=== PATIENT | male | born 1975 | race African-American/Black ===

== ENCOUNTER 2017-10-18 22:40 | Inpatient (IN) | payer OTHER ==
[~2017-10-18] VITALS: Ht 170.2 cm; Wt 94.5 kg
[~2017-10-18 22:40] MED LIST: BUSP30TA PO; CEPH500C3 PO; DEPA250T2 PO; INDO50 PO; LISI-363 PO; LORTA5 PO; SERO200T PO
[2017-10-18 22:42] VITALS: BP 143/66; PULSE 150; RESP 40; TEMP 105.1; O2SAT 99
[2017-10-18] MEDS ORDERED: CYPROHEPTADINE HCL SYRUP 2 MG/5 ML PO ONE (23:00)
[2017-10-18] MEDS ORDERED: ACETAMINOPHEN 650 MG SUPP RECTAL ONE (23:00)
[2017-10-18] MEDS ORDERED: KETOROLAC TROMETHAMINE 30 MG/ML (IVP) VIAL IV PUSH ONE (23:00)
[2017-10-18] MEDS ORDERED: INSULIN HUMAN REGULAR 1,000 UNITS/10 ML VIAL IV PUSH ONE ×2 (23:00→23:30)
[2017-10-18 23:02] VITALS: BP 143/66; PULSE 145; RESP 36; TEMP 104.9; O2SAT 100
[2017-10-18 23:16] LABS: AUTOMATED NEUTROPHIL # 12.7 TH/MM3 (1.8-7.7); BASOPHIL # 0.1 TH/MM3 (0-0.2); BASOPHIL % 0.7 % (0.0-2.0); EOSINOPHIL % 0.1 % (0.0-4.0); HEMATOCRIT 36.1 % (39.0-51.0); HEMOGLOBIN 10.5 GM/DL (13.0-17.0); LYMPH % 1.3 % (9.0-44.0); LYMPHOCYTE # 0.2 TH/MM3 (1.0-4.8); MEAN CORPUSCULAR HEMOGLOBIN 26.9 PG (27.0-34.0); MEAN PLATELET VOLUME 11.3 FL (7.0-11.0); MONO % 12.1 % (0.0-8.0); MONOCYTE # 1.8 TH/MM3 (0-0.9); NEUT % 85.8 % (16.0-70.0); PLATELET COUNT 170 TH/MM3 (150-450); RED BLOOD COUNT 3.92 MIL/MM3 (4.50-5.90); RED CELL DISTRIBUTION WIDTH 16.7 % (11.6-17.2); WHITE BLOOD COUNT 14.8 TH/MM3 (4.0-11.0)
[2017-10-18 23:19] LABS: MEAN CORPUSCULAR HGB CONC 29.2 % (32.0-36.0)
[2017-10-18 23:30] VITALS: PULSE 136; RESP 36; TEMP 104.7; O2SAT 100
[2017-10-18] MEDS ORDERED: [UNRECOGNIZED DRUG - OTHER] IV ONE (23:30)
[2017-10-18] MEDS ORDERED: cefTRIAXone INJ 1,000 MG in SODIUM CHLORIDE 0.9% INJ 100 ML IV ONE (23:30)
[2017-10-18 23:45] LABS: ACETAMINOPHEN LESS THAN 2.0 MCG/ML (10.0-30.0); ALBUMIN 3.1 GM/DL (3.4-5.0); ALKALINE PHOSPHATASE 95 U/L (45-117); ALT (GPT) 15 U/L (12-78); AST (GOT) 5 U/L (15-37); BICARBONATE 11.5 MEQ/L (21.0-32.0); BLOOD UREA NITROGEN 37 MG/DL (7-18); CALCIUM 7.1 MG/DL (8.5-10.1); CALCIUM-PROTEIN CORRECTED 7.7 MG/DL (8.5-10.1); CHLORIDE 86 MEQ/L (98-107); CREATININE 3.07 MG/DL (0.60-1.30); GLOMERULAR FILTRATION RATE 27 ML/MIN (>89); TOTAL BILIRUBIN ADULT 0.8 MG/DL (0.2-1.0); TOTAL PROTEIN 5.9 GM/DL (6.4-8.2)
[2017-10-18 23:46] LABS: BILIRUBIN, URINE NEG (NEG); BLOOD, URINE TRACE (NEG); GLUCOSE,RANDOM 1872 MG/DL (74-106); GLUCOSE,URINE 1000 mg/dL (NEG); KETONE, URINE 40 mg/dL (NEG); MUCUS URINE FEW /lpf (OCC); NITRITE,URINE NEG (NEG); PH, URINE 5.5 (5.0-8.5); SODIUM (NA) 121 MEQ/L (136-145); TRANSITIONAL EPI CELLS, URINE <1 /hpf; URINE COLOR COLORLESS (YELLW/STRAW); URINE LEUKOCYTE ESTERASE NEG (NEG)
[2017-10-18] MEDS ORDERED: DIVA250T3 PO (23:47)
[2017-10-18] MEDS ORDERED: NAPR500T2 PO (23:47)
[2017-10-18] MEDS ORDERED: AMLO10CA (23:47)
[2017-10-18] MEDS ORDERED: HYDR-755 PO (23:47)
[2017-10-18] MEDS ORDERED: BUSP10TA PO (23:47)
[2017-10-18] MEDS ORDERED: QUET1TAB8 PO (23:47)
[2017-10-18] MEDS ORDERED: [UNRECOGNIZED DRUG - CODE] BUCCAL (23:47)
[2017-10-19] VITALS (18 sets, daily range): BP systolic 83–137; BP diastolic 41–87; PULSE 81–130; RESP 18–29; TEMP 96.9–101.1; O2SAT 95–100
[2017-10-19] MEDS ORDERED: NS + KCL 40 MEQ INJ 1,000 ML IV SCH (00:15)
[2017-10-19] MEDS ORDERED: LORazepam 2 MG/ML VIAL IV PUSH ONE (00:15)
--- NOTE | 2017-10-19 00:16 | RADRPT ---
EXAM DATE/TIME: 10/18/2017 23:28 [place] COMPARISON: No previous studies available for comparison. INDICATIONS : Shortness of breath. MEDICAL HISTORY : Hypertension. Coronary artery disease. SURGICAL HISTORY : None. ENCOUNTER: Initial ACUITY: 1 day PAIN SCORE: 10/10 LOCATION: Bilateral chest FINDINGS: A single portable frontal view of the chest is blurred by breathing motion artifact. Multiple tiny pu nctate metallic foreign bodies overlie the right chest. The lungs are grossly clear. Heart is normal in size. Visualized bony structures are unremarkable. CONCLUSION: 1. Limited study. 2. Metallic foreign bodies overlying the right chest. Dennis Claire Jr., MD on October 19, 2017 at 0:11 Board Certified Radiologist. This report was verified electronically.
--- NOTE | 2017-10-19 00:19 | PD ---
HPI Chief Complaint: Altered Mental Status Time Seen by Provider: 22:45 Travel History International Travel<30 days: No Contact w/Intl Traveler<30days: No Traveled to known affect area: No History of Present Illness HPI Patient is a 42-year-old male who is febrile tonight altered mentally ..paramedics were called by the girlfriend to the house patient is minimally responsive vitals are within normal limits however patient's temp by the paramedics was 101.7 oral patient arrives he is diaphoretic. he is tactilely very hot -->rectal temp is done it is 105.7 he is awake but he is not answering questions he is staring he has vitals in the ER mildly tachycardic to 120 His blood pressure is 150/70 and again he is very febrile rectal Tylenol 650 is given Toradol 30 is given and 2 L of fluid are added to the 3 L of fluid he already had in EMS . 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 he also takes BuSpar and possibly has a history of cocaine abuse -->he could have a serotonin syndrome fever.. he is a poor historian at this time due to his mental status from the high fever ...ROS and HPI are limited. Cool is started immediately and his glucose returns 1800s, he is in DKA new onset diabetes is working diagnosis. Due to creatinine elevation and severe hyperglycemia pt needs 4-5 liters NS at least before I can correct electrolytes K and Ca PFSH Past Medical History Bipolar Disorder: Yes Depression: Yes Coronary Artery Disease: Yes Diminished Hearing: No Hypertension: Yes Social History Alcohol Use: Yes (3X WK 48OZ BEER) Tobacco Use: Yes (1/2 PPD) Substance Use: Yes (MJ,COCAINE EVERY 2 DAYS) Allergies-Medications (Allergen,Severity, Reaction): Coded Allergies: No Known Allergies (Unverified Allergy, Unknown, 10/18/17) Reported Meds & Prescriptions Reported Meds & Active Scripts Active Reported Oravig (Miconazole) 50 Mg Nitza 50 Mg BUCCAL DAILY Hydroxyzine HCl 10 Mg Tab 10 Mg PO TID PRN Naproxen 500 Mg Tab 500 Mg PO BID Buspirone (Buspirone HCl) 10 Mg Tab 10 Mg PO DAILY Amlodipine-Benazepril 10-20 Mg Cap 1 Cap DAILY Divalproex ER (Divalproex Sodium) 250 Mg [place] 250 Mg PO DAILY Quetiapine (Quetiapine Fumarate) 100 Mg Tab 100 Mg PO DAILY Lisinopril 20 mg (Lisinopril) 20 Mg Tab 20 Mg PO BID Review of Systems ROS Limitations: Clinical Condition, Altered Mental Status Physical Exam Narrative GENERAL: Patient is awake somnolent-- staring eyes open but minimally responsive-- at initial eval airway is protected he is not obtunded he is just not speaking SKIN: dry. Hot dry skin HEAD: Atraumatic. Normocephalic. EYES: Pupils equal and round. No scleral icterus. No injection or drainage. ENT: No nasal bleeding or discharge. Mucous membranes pink and moist. NECK: Trachea midline. No JVD. CARDIOVASCULAR: sinus tachycardia rate 130 . RESPIRATORY: No accessory muscle use. Slightly increased respiratory rate --> possibly blowing off acid from DKA GASTROINTESTINAL: Abdomen soft, non-tender, nondistended. Hepatic and splenic margins not palpable. MUSCULOSKELETAL: Extremities without clubbing, cyanosis, or edema. No obvious deformities. NEUROLOGICAL: Awake somnolent . No obvious cranial nerve deficits. Motor grossly within normal limits. PSYCHIATRIC: somnolent AMS from DKA and High fever Data Data Last Documented VS Vital Signs Date Time Temp Pulse Resp B/P (MAP) Pulse Ox O2 Delivery O2 Flow Rate FiO2 10/18/17 23:30 104.7 136 36 100 Non-Rebreather 10/18/17 23:02 15.00 Orders Orders Complete Blood Count With Diff (10/18/17 22:45) Comprehensive Metabolic Panel (10/18/17 22:45) Creatine Kinase (Cpk) (10/18/17 22:45) C-Reactive Protein (Crp) (10/18/17 22:45) Urinalysis - C+S If Indicated (10/18/17 22:45) Chest, Single Ap (10/18/17 22:45) Drug Screen, Random Urine (10/18/17 22:45) Alcohol (Ethanol) (10/18/17 22:45) Salicylates (Aspirin) (10/18/17 22:45) Tylenol (Acetaminophen) (10/18/17 22:45) Blood Culture (10/18/17 22:45) Lactic Acid (10/18/17 22:45) Acetaminophen Supp (Tylenol Supp) (10/18/17 23:00) Ketorolac Inj (Toradol Inj) (10/18/17 23:00) Insulin Human Regular Inj (Novolin R Inj (10/18/17 23:00) Cyproheptadine Liq (Periactin Liq) (10/18/17 23:00) Insert Temp Sensing Chiang Cath (10/18/17 22:52) Blood Gas Venous Ph (10/18/17 23:05) Beta Hydroxybutyrate (Acetone) (10/18/17 22:56) Ceftriaxone Inj (Rocephin Inj) (10/18/17 23:30) Insulin Human Regular Inj (Novolin R Inj (10/18/17 23:30) Insulin Human R Drip (For Ed) (Novolin-R (10/18/17 23:30) Sodium Chlor 0.9% 1000 Ml Inj (Ns 1000 M (10/19/17 00:00) Sodium Chlor 0.9% 1000 Ml Inj (Ns 1000 M (10/19/17 00:00) Sodium Chlor 0.9% 1000 Ml Inj (Ns 1000 M (10/19/17 00:00) Ns + Kcl 40 Meq Inj (Ns + Kcl 40 Meq Inj (10/19/17 00:15) Lorazepam Inj (Ativan Inj) (10/19/17 00:15) Sodium Chlor 0.9% 1000 Ml Inj (Ns 1000 M (10/19/17 00:30) Sodium Chlor 0.9% 1000 Ml Inj (Ns 1000 M (10/19/17 00:30) Admit Order (Ed Use Only) (10/19/17 00:38) Labs Laboratory Tests Test 10/18/17 00:00 10/18/17 22:56 10/18/17 23:05 Urine Random Creatinine LESS THAN 13.0 MG/DL Urine Random Sodium 11 MEQ/L White Blood Count 14.8 TH/MM3 Red Blood Count 3.92 MIL/MM3 Hemoglobin 10.5 GM/DL Hematocrit 36.1 % Mean Corpuscular Volume 92.0 FL Mean Corpuscular Hemoglobin 26.9 PG Mean Corpuscular Hemoglobin Concent 29.2 % Red Cell Distribution Width 16.7 % Platelet Count 170 TH/MM3 Mean Platelet Volume 11.3 FL Neutrophils (%) (Auto) 85.8 % Lymphocytes (%) (Auto) 1.3 % Monocytes (%) (Auto) 12.1 % Eosinophils (%) (Auto) 0.1 % Basophils (%) (Auto) 0.7 % Neutrophils # (Auto) 12.7 TH/MM3 Lymphocytes # (Auto) 0.2 TH/MM3 Monocytes # (Auto) 1.8 TH/MM3 Eosinophils # (Auto) 0.0 TH/MM3 Basophils # (Auto) 0.1 TH/MM3 CBC Comment DIFF FINAL Differential Comment Urine Color COLORLESS Urine Turbidity CLEAR Urine pH 5.5 Urine Specific [place] 1.024 Urine Protein NEG mg/dL Urine Glucose (UA) 1000 mg/dL Urine Ketones 40 mg/dL Urine Occult Blood TRACE Urine Nitrite NEG Urine Bilirubin NEG Urine Urobilinogen LESS THAN 2.0 MG/DL Urine Leukocyte Esterase NEG Urine WBC 2 /hpf Urine Transitional Epithelial Cells <1 /hpf Urine Mucus FEW /lpf Microscopic Urinalysis Comment CULT NOT INDICATED Blood Urea Nitrogen 37 MG/DL Creatinine 3.07 MG/DL Random Glucose 1872 MG/DL Total Protein 5.9 GM/DL Albumin 3.1 GM/DL Calcium Level 7.1 MG/DL Alkaline Phosphatase 95 U/L Aspartate Amino Transf (AST/SGOT) 5 U/L Alanine Aminotransferase (ALT/SGPT) 15 U/L Total Bilirubin 0.8 MG/DL Sodium Level 121 MEQ/L Potassium Level 2.7 MEQ/L Chloride Level 86 MEQ/L Carbon Dioxide Level 11.5 MEQ/L Anion Gap 24 MEQ/L Estimat Glomerular Filtration Rate 27 ML/MIN Lactic Acid Level 2.5 mmol/L Protein Corrected Calcium 7.7 MG/DL Total Creatine Kinase 84 U/L C-Reactive Protein 1.60 MG/DL Salicylates Level 5.0 MG/DL Urine Opiates Screen NEG Acetaminophen Level LESS THAN 2.0 MCG/ML Urine Barbiturates Screen NEG Urine Amphetamines Screen NEG Urine Benzodiazepines Screen NEG Urine Cocaine Screen NEG Urine Cannabinoids Screen NEG Ethyl Alcohol Level LESS THAN 3 MG/DL B-Hydroxybutyrate 5.68 MMOL/L Venous Blood pH 7.12 MDM Medical Decision Making Medical Screen Exam Complete: Yes Emergency Medical Condition: Yes Differential Diagnosis pt is hyperthermic from sepsis vs malignant hyperthermia , vs serotonin syndrome .. pt possible Non ketotic hyperosmolar dehydration vs DKA with and severe acidosis and infectious source vs other Narrative Course I immediately start to cool pt as his temperature is 105.7 .. I emprically give vanco and zosyn to cover infectious source for fever and then start to resusitate with fluid boluses --> 6 liters total and then I start Insulin to correct his severe hyperglycemia and dehydration and and renal failure, I wait to given calcium and K due to his renal failure and calcium would injury kidneys and K would cause rapid hyperkalemia and potential cardiac arrhythmia , after 6 liters I give 20 mEq of KCL and 1 gram of Calcium gluconate pt is very acidotic and HCO3 amp given and he becomes unresponsive his equipment monitor phototypesetting showing ectopy and change in cardiac minitor tracing . HCO3 given and his monitor returns to NSR tachycardia .Pt is intubated by this MD and then central line is placed by this MD and I admit to ICU , 70 minutes of critical care time Critical Care Narrative 70 minutes of critical care time --> cooling iv antibioitc electrolyte correction insulin admistration ,, IV fluid resusitation for severe dehydration to renal failure to cardiac arrhythmia due to k dropping and renal failure and hypocalcemia, Intubation and central line placement in ER by this MD .. Procedures Procedure Narrative EMERGENCY LIFE SAVING NEED CENTRAL VENOUS LINE: The site was prepped with Betadine and sterilely draped. It was infiltrated with 1% lidocaine plain. The deep vein was cannulated using normal Seldinger technique. A central line was placed in the [R femoral ] site and secured adhesive snap stabilizer apparatus . The site was sterilely dressed. The patient tolerated the procedure well. INTUBATION: The patient was put in optimal position for the procedure. Rapid sequence intubation was initiated by me using [20] milligrams of etomidate IV and [-100] milligrams of [-succinylcholine ] IV. C- MAC used to visualize cords which were very anterior and narrow airway opening,, The patient was intubated with a [-8.0] cuffed endotracheal tube. Tube placement was confirmed by visualization of the tube and balloon passing through the cords, capnometry and subsequent chest x-ray. Breath sounds were equal and well aerated bilaterally postintubation. No breath sounds over stomach. Patient tolerated procedure well. Diagnosis Primary Impression: DKA (diabetic ketoacidoses) Qualified Codes: E10.11 - Type 1 diabetes mellitus with ketoacidosis with coma Additional Impressions: Hyperthermia Electrolyte abnormality Electrolyte and fluid disorder Admitting Information Admitting Physician Requests: Admit Sid Miller MD October 19, 2017 00:19
[2017-10-19] MEDS ORDERED: SODIUM CHLOR 0.9% 1000 ML INJ 1,000 ML IV ONE ×6 (00:30→03:00)
[2017-10-19] MEDS ORDERED: POTASSIUM CHLOR 20 MEQ PREMIX 100 ML IV ONE (01:15)
[2017-10-19] MEDS ORDERED: SODIUM BICARBONATE 8.4% INJ 50 MEQ/50 ML SYR ONE (01:19)
[2017-10-19 01:25] LABS: ALBUMIN 3.1 GM/DL (3.4-5.0); AST (GOT) 6 U/L (15-37); BICARBONATE 13.2 MEQ/L (21.0-32.0); BLOOD UREA NITROGEN 35 MG/DL (7-18); CALCIUM 7.7 MG/DL (8.5-10.1); CHLORIDE 108 MEQ/L (98-107); CREATININE 2.77 MG/DL (0.60-1.30); GLOMERULAR FILTRATION RATE 31 ML/MIN (>89); SODIUM (NA) 139 MEQ/L (136-145)
[2017-10-19] MEDS ORDERED: ETOMIDATE 40 MG/20 ML VIAL ONE (01:34)
[2017-10-19] MEDS ORDERED: CALCIUM GLUCONATE 10% 1 GM/10 ML VIAL ONE (01:36)
[2017-10-19] MEDS ORDERED: CALCIUM GLUCONATE 10% 1 GM/10 ML VIAL IV PUSH ONE (01:45)
[2017-10-19 01:51] LABS: ALKALINE PHOSPHATASE 104 U/L (45-117); ALT (GPT) 13 U/L (12-78); TOTAL BILIRUBIN ADULT 0.5 MG/DL (0.2-1.0); TOTAL PROTEIN 6.1 GM/DL (6.4-8.2)
[2017-10-19 01:52] LABS: GLUCOSE,RANDOM 1247 MG/DL (74-106)
[2017-10-19 01:53] LABS: PHOSPHORUS 0.7 MG/DL (2.5-4.9)
[2017-10-19] MEDS ORDERED: SODIUM CHLORIDE 0.9% FLUSH 10 ML FLUSH IV FLUSH PRN (02:30)
[2017-10-19] MEDS ORDERED: LACTULOSE SYRUP 20 GM/30 ML CUP PO PRN (02:30)
[2017-10-19] MEDS ORDERED: POTASSIUM PHOSPHATE INJ 30 MMOL in SODIUM CHLOR 0.9% 250 ML INJ 250 ML IV ONE (02:30)
[2017-10-19] MEDS ORDERED: BISACODYL 10 MG SUPP RECTAL PRN (02:30)
[2017-10-19] MEDS ORDERED: MAGNESIUM HYDROXIDE SUSP 30 ML CUP PO PRN (02:30)
[2017-10-19] MEDS ORDERED: NURSING INFORMATION XX SCH (02:30)
[2017-10-19] MEDS ORDERED: CHLORHEXIDINE GLUCONATE 2 % 1 PACK (2 CLOTHS) TOP PRN (02:30)
[2017-10-19] MEDS ORDERED: ONDANSETRON HCL 4 MG/2 ML VIAL IV PUSH PRN (02:30)
[2017-10-19] MEDS ORDERED: SENNOSIDES 8.6 MG TAB PO PRN (02:30)
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
[2017-10-19] MEDS ORDERED: fentaNYL DRIP 250 ML IV PRN (03:00)
[2017-10-19] MEDS ORDERED: SUCCINYLCHOLINE CHLORIDE 100 MG/5 ML SYRINGE IV PUSH ONE (03:00)
[2017-10-19] MEDS ORDERED: ETOMIDATE 20 MG/10 ML VIAL IV PUSH ONE (03:00)
[2017-10-19] MEDS ORDERED: PROPOFOL 1000 MG/100 ML INJ 100 ML IV PRN (03:00)
[2017-10-19] MEDS ORDERED: SODIUM BICARBONATE 8.4% INJ 50 MEQ/50 ML SYR IV PUSH ONE ×4 (03:00→22:00)
[2017-10-19] MEDS ORDERED: PHENYLEPHRINE HCL 10 MG/ML VIAL ONE ×4 (03:29→07:39)
[2017-10-19] MEDS ORDERED: TERBUTALINE INJ 1 MG/ML AMP SQ PRN ×2 (03:30→07:45)
[2017-10-19] MEDS: POTASSIUM CHLORIDE INJ 40 MEQ, SODIUM CHLORIDE 23.4% INJ 38.5 MEQ in WATER STERILE FOR ... IV SCH ×2 (03:32→10:27)
[2017-10-19] MEDS: NOREPINEPHRINE INJ 4 MG in SODIUM CHLOR 0.9% 250 ML INJ 246 ML IV PRN ×2 (03:36→21:47)
--- NOTE | 2017-10-19 03:47 | RADRPT ---
EXAM DATE/TIME: 10/19/2017 02:56 [facility] COMPARISON: CHEST SINGLE AP, October 18, 2017, 23:28. INDICATIONS : Confirm central line placement. MEDICAL HISTORY : Hypertension. Coronary artery disease. SURGICAL HISTORY : None. ENCOUNTER: Initial ACUITY: 1 day PAIN SCORE: Non-responsive. LOCATION: Bilateral chest FINDINGS: Tip of an endotracheal tube is less than 1 cm from the jonathan. Nasogastric tube tip is in the region of the body of the stomach. Bilateral pulmonary infiltrates are noted. Heart normal size. No central line observed. No effusions. Metallic foreign bodies overlie the right chest. CONCLUSION: 1. Bilateral pulmonary infiltrates. Dennis Claire Jr., MD on October 19, 2017 at 3:44 Board Certified Radiologist. This report was verified electronically.
[2017-10-19] MEDS ORDERED: Vancomycin Consult Pharmacy 1 EA OTHER SCH (04:00)
[2017-10-19] MEDS: CHLORHEXIDINE GLUCONATE 2 % 1 PACK (2 CLOTHS) TOP SCH (04:00)
[2017-10-19] MEDS ORDERED: GLUCAGON 1 MG/ML VIAL OTHER PRN (04:15)
[2017-10-19] MEDS ORDERED: DEXTROSE 50% IN WATER 50 ML VIAL(D50) IV PUSH PRN ×2 (04:15→23:30)
[2017-10-19 04:25] LABS: INTERNATIONAL NORMALIZED RATIO 1.1 RATIO; PROTHROMBIN TIME - PATIENT 11.5 SEC (9.8-11.6)
[2017-10-19 04:34] LABS: BICARBONATE 20.8 MEQ/L (21.0-32.0); CALCIUM 7.6 MG/DL (8.5-10.1); CREATININE 2.99 MG/DL (0.60-1.30); MAGNESIUM 3.3 MG/DL (1.5-2.5); PHOSPHORUS 2.3 MG/DL (2.5-4.9)
[2017-10-19] MEDS: RESP: ALBUTEROL 2.5 MG/IPRATROPIUM 0.5 MG NEB (SCH) INH ×4 (04:51→20:15)
[2017-10-19] MEDS: POTASSIUM CHLOR 40 MEQ PREMIX 100 ML IV SCH ×2 (05:00→10:27)
[2017-10-19] MEDS ORDERED: VANCOMYCIN 1,500 MG/NS 500 ML IV ONE ×2 (05:00)
[2017-10-19] MEDS ORDERED: SODIUM BICARBONATE 8.4% INJ 50 MEQ/50 ML SYR IV ONE (05:00)
[2017-10-19] MEDS ORDERED: CALCIUM CHLORIDE 10% SOLN 1 GRAM/10 ML SYR IV ONE (05:00)
[2017-10-19] MEDS: CEFEPIME INJ 2,000 MG in SODIUM CHLORIDE 0.9% INJ 100 ML IV SCH ×2 (05:28→16:08)
[2017-10-19] MEDS: metroNIDAZOLE 500 MG INJ 100 ML IV SCH ×4 (05:29→23:23)
[2017-10-19] MEDS: ARTIFICIAL TEARS OPTH SOLN 15 ML BTL EACH EYE SCH ×3 (06:00→22:00)
[2017-10-19] MEDS ORDERED: POTASSIUM CHLORIDE 25 MEQ EFFERVESCENT TAB NG ONE (07:45)
[2017-10-19] MEDS: CHLORHEXIDINE 0.12% (ORAL KIT) 15 ML CUP MT SCH ×2 (08:00→20:00)
[2017-10-19] MEDS ORDERED: MIDAZOLAM 100 MG/100 ML INJ 100 ML IV PRN (08:15)
[2017-10-19] MEDS: fentaNYL DRIP 250 ML IV PRN (08:42)
[2017-10-19] MEDS: PHENYLEPHRINE 40 MG in D5W 500 ML IV PRN (08:43)
--- NOTE | 2017-10-19 08:48 | HHI.CCPN ---
Subjective Remarks/Hospital Course This is a 42-year-old AA male. Date of admission 10/19/2017. Past medical history includes depression, hypertension. Patient has no known history of diabetes mellitus but has multiple family members with this diagnosis. Over the past month, patient has been experiencing these sequelae of thirst, diminished appetite. Patient was in group home until recently and has not had his blood sugar checked according to his sister. He denies any sick contacts. Since being released from group home, patient has been relatively noncompliant with his home medications due to underlying nausea/vomiting and delirium. Patient was drinking copious amounts of fluids at home. Due to his underlying illness is's family convinced him to come to the hospital for further evaluation treatment today. Name Efraín, patient noted to have a blood sugar 1800. Acute kidney injury creatinine of around 3. Sodium 121. Multiple electrolyte and mellitus and elevated ammonia level. Patient originally presented with fever around 105 to his facility. Received 4 mg of cyproheptadine per ED physician first possible serotonin syndrome. He received ice to fluid/water and acetaminophen/NSAIDs and his blood sugars currently subsiding. Patient became more unresponsive in the ED intervention was intubated with central line placed by ED physician. 10/19:The patient went into V. tach at approximately 0720 am. ACLS protocol instituted. Insulin infusion discontinued. 12-lead EKG obtained, stat VBG obtained. 1 g calcium chloride given to stabilize membrane. The patient was defibrillated 1 prior to my arrival and the scene. The patient was given 50 mEq of potassium orally, as well as 20 meq.'s IV.ROSC returned at 0 750. Attempts made to contact family unsuccessful, palliative care consulted to define healthcare POA surrogacy. Repletion of electrolytes per ICU protocol , serial labs continues. Patient awakened post ROSC noted to have spontaneous eye opening movement of extremities 4 but not following commands. Arterial line placed, the patient continues on Levophed and phenylephrine infusion to maintain MAP. The patient was noted to have a significant respiratory acidosis , initial CO2 96, rate was increased at 6 AM subsequent CO2 67 with pH 6.97. Ventilatory rate increased, sodium bicarbonate 1 amp 4 bicarb level is 16.3 given. Objective Vital Signs Date Time Temp Pulse Resp B/P (MAP) Pulse Ox O2 Delivery O2 Flow Rate FiO2 10/19/17 05:30 60 10/19/17 04:40 97 10/19/17 03:36 95 86/36 10/19/17 03:15 Mechanical Ventilator 10/19/17 03:15 99.9 18 10/19/17 01:42 15.00 Intake and Output 10/19/17 10/19/17 10/20/17 08:00 16:00 00:00 Intake Total 1085 ml Output Total 5075 ml Balance -3990 ml Result Diagram: 10/18/17 2256 10/19/17 0520 Other Results Laboratory Tests Test 10/18/17 23:05 10/19/17 02:25 10/19/17 04:22 Venous Blood pH 7.12 (7.360-7.400) 6.87 (7.360-7.400) Blood Gas Puncture Site LINE RT RADIAL Blood Gas Patient Temperature 98.6 98.6 Venous Blood Partial Pressure CO2 105 mmHg (44-48) Venous Blood Partial Pressure O2 35 mmHg (35-40) Venous Blood HCO3 18 mmol/L (22-26) Venous Blood Oxygen Saturation 44 % (70-76) Venous Blood Oxygen Content 5.9 Vol % (9.0-17.0) Venous Blood Base Excess -13.7 mmol/L (-2-2) Oxygen Delivery Device VENTILATOR VENTILATOR Blood Gas Ventilator Setting COMMENT PRVC/AC Blood Gas Inspired Oxygen 100 % 100 % Blood Gas HCO3 19 mmol/L (22-26) Blood Gas Base Excess -11.8 mmol/L (-2-2) Blood Gas Oxygen Saturation 97 % (90-100) Arterial Blood pH 6.95 (7.380-7.420) Arterial Blood Partial Pressure CO2 91 mmHg (38-42) Arterial Blood Partial Pressure O2 246 mmHg (61-120) Arterial Blood Oxygen Content 13.8 Vol % (12.0-20.0) Arterial Blood Carboxyhemoglobin 0.2 % (0-4) Arterial Blood Methemoglobin 1.7 % (0-2) Blood Gas Hemoglobin 9.7 G/DL (12.0-16.0) Imaging Last Impressions Chest X-Ray 10/19/17 0253 Signed Impressions: Service Date/Time: Thursday, October 19, 2017 02:56 - CONCLUSION: 1. Bilateral pulmonary infiltrates. Dennis Claire Jr., MD Objective Remarks GENERAL: 42-year-old AA male currently resting in bed orotracheally intubated SKIN: Warm and dry. Multiple tattoos HEAD: Atraumatic. Normocephalic. EYES: Pupils equal and round about 2 mm bilaterally and reactive no scleral icterus. No injection or drainage. ENT: No nasal bleeding or discharge. Mucous membranes pink and moist. NECK: Trachea midline. No JVD. CARDIOVASCULAR: Tachycardic, RR. S1-S2 no S4. RESPIRATORY: Diminished breath sounds. Symmetrical excursion. No wheezing appreciated. GASTROINTESTINAL: Abdomen soft, non-tender, nondistended. Hypoactive bowel sounds were appreciated. MUSCULOSKELETAL: Extremities without significant pitting edema. No obvious deformities. NEUROLOGICAL: Currently seen post analgesia for intubation. Positive gag and corneal reflex. Withdraws to pain bilateral upper extremity's. Minimal bilateral lower extremities. Urinary Catheter: Yes Assessment to: Continue Date of Insertion: October 19, 2017 A/P Problem List: (1) Hypokalemia ICD Code: E87.6 - Hypokalemia Status: Acute (2) Acute respiratory failure ICD Code: J96.00 - Acute respiratory failure, unspecified whether with hypoxia or hypercapnia (3) Lactic acidosis ICD Code: E87.2 - Acidosis Status: Acute (4) Hypermagnesemia ICD Code: E83.41 - Hypermagnesemia (5) Pyrexia ICD Code: R50.9 - Fever, unspecified Status: Acute (6) Hyponatremia ICD Code: E87.1 - Hypo-osmolality and hyponatremia Status: Acute (7) Leukocytosis ICD Code: D72.829 - Elevated white blood cell count, unspecified Status: Acute (8) Hypophosphatemia ICD Code: E83.39 - Other disorders of phosphorus metabolism Status: Acute (9) Ketoacidosis due to secondary diabetes ICD Code: E13.10 - Other specified diabetes mellitus with ketoacidosis without coma Status: Acute (10) Acute kidney injury ICD Code: N17.9 - Acute kidney failure, unspecified Status: Acute (11) Acute encephalopathy ICD Code: G93.40 - Encephalopathy, unspecified Status: Acute (12) BMI 37.0-37.9, adult ICD Code: Z68.37 - Body mass index (BMI) 37.0-37.9, adult Status: Acute Assessment and Plan Neuro/Psych: Acute toxic metabolic encephalopathy Depression/anxiety Holding Quetiapine 100 mg daily, divalproex 250 mg daily and buspirone 10 mg p.o. 3 times daily/home medication along with hydroxyzine 10 mg p.o. 3 times daily Patient did received cyproheptadine 4 mg 1 for possible serotonin syndrome by ED physician Versed/fentanyl drips for sedation/analgesia while intubated Goal of RASS of -[address] brain ordered. Results pending along with EEG Holding buspirone 10 mg daily, divalproex 250 mg daily/check level and ketamine 100 mg p.o. daily. 10/19 S/P ROSC-noticed spontaneous eye opening, spontaneous movement of extremities 4, not following commands CV: Severe sepsis Lactic acidosis History of essential hypertension Currently on one quarter normal saline with 20 mEq of KCl at 150 cc an hour Received 10 L normal saline in ED Repeat lactate until cleared Follow-up EKG/troponin Holding home medication of amlodipine/benazepril 10/20 1 tablet daily and lisinopril 20 mg p.o. 2x daily in light of hypertension As needed norepinephrine and phenylephrine to maintain mean arterial pressure greater than equal to 65 Resp: Acute respiratory failure Mixed acidosis PRVC ventilation increased 24/550/0.9/5/50 Ventilator bundle Albuterol/ipratropium aerosols every 4 hours with albuterol aerosols every 2 hours as needed dyspnea Spontaneous breathing trials when clinically indicated ET tube retracted 1 cm. Repeat chest x-ray in a.m. Repeat ABG GI: Possible upper GI bleed. Hypoalbuminemia NGT to LIWS Maintain NPO status Pantoprazole for GI prophylaxis Docusate sodium/senna 1 tablet twice daily for bowel regimen Lactulose 30 cc twice daily. Follow-up ammonia level : Maintain Chiang catheter for accurate I's and O's Endo: Acute hyperglycemic state Ketoacidosis Currently on insulin drip currently at 2 units an hour with a goal to decrease blood sugar between 75 and 100 an hour Check hemoglobin A1c, lipid panel Beta hydroxybutyrate repeat pending. Renal: Acute kidney injury Check urine eosinophils and electrolytes and ultrasound Monitor urine output Accurate I's and O's Heme: Leukocytosis Normocytic anemia Monitor CBC daily. Follow trends Coags currently pending ID: Currently in vancomycin, cefepime and metronidazole day #1 Blood cultures 2, sputum, urine, influenza all ordered F/U results Consider lumbar puncture FEN: Hypokalemia Hypophosphatemia Hypermagnesia Replace electrolytes as clinically indicated. Currently on hypotonic saline to correct sodium Receiving IV phosphorus and potassium Monitor serial electrolyte levels MSK: Elevated BMI of 37 Weight loss encouraged PT evaluate and treat Access -Right femoral CVL day #1 placed in ED by ED physician Prophylaxis GI -pantoprazole -DVT -SCD/holding pharmacological prophylaxis with possible upper GI bleed Critical Care: my billing statement This patient remains critically ill with one or more organ systems which are or may become a threat to life. I have spent in excess of 50 minutes discontinuously in the care and management of this patient. This time is exclusive of procedures, and includes, but is not limited to, evaluation of the patient, review of the medical record, discussions with family, consultants, nursing staff, or respiratory therapy, and documentation in the medical record. Physician Maria Esther Giles Problem Qualifiers (1) Acute respiratory failure: Qualified Codes: J96.01 - Acute respiratory failure with hypoxia; J96.02 - Acute respiratory failure with hypercapnia (2) Pyrexia: Qualified Codes: R50.9 - Fever, unspecified Maria Esther Giles MD October 19, 2017 08:48
--- NOTE | 2017-10-19 08:53 | PD.PROCEDR ---
Procedure Note Procedure Date:10/19/2017 Procedure: Cardiopulmonary resuscitation Indication: Cardiac arrest / Ventricular Tachycardia Details of procedure: Patient developed ventricular tachycardia cardiac arrest, no pulse. Per ACLS protocol, patient received defibrillation x1 , 100% ventilation via ETT, calcium chloride, and normal saline 1 L IV. Continued aggressive repletion of potassium. Norepinephrine infusion continued, phenylephrine infusion added, after 30 minutes resuscitation we were able to restore spontaneous circulation. Attempted notification of the family was notified by myself, unsuccessful to locate significant other, Denise. Maria Esther Giles MD October 19, 2017 08:53
[2017-10-19] MEDS ORDERED: ARTIFICIAL TEARS OPTH SOLN 15 ML BTL EACH EYE SCH (09:00)
[2017-10-19] MEDS ORDERED: PANTOPRAZOLE SODIUM 40 MG VIAL IV PUSH SCH (09:00)
[2017-10-19] MEDS: PANTOPRAZOLE SODIUM 40 MG VIAL IV PUSH SCH ×2 (09:00→20:03)
[2017-10-19] MEDS: DOCUSATE SODIUM 50 MG/SENNA 8.6 MG TAB PO SCH ×2 (09:00→21:00)
[2017-10-19] MEDS: VASOPRESSIN 40 U/D5W 100 ML Titrate, Post Cardiac Surgery IV PRN ×4 (09:03→21:45)
[2017-10-19] MEDS ORDERED: CALCIUM CHLORIDE 10% SOLN 1 GRAM/10 ML SYR ONE (09:43)
[2017-10-19 09:53] LABS: ALBUMIN 2.6 GM/DL (3.4-5.0); ALKALINE PHOSPHATASE 98 U/L (45-117); ALT (GPT) 92 U/L (12-78); AST (GOT) 199 U/L (15-37); BICARBONATE 13.4 MEQ/L (21.0-32.0); BLOOD UREA NITROGEN 34 MG/DL (7-18); CALCIUM 8.1 MG/DL (8.5-10.1); CHLORIDE 124 MEQ/L (98-107); CREATININE 3.12 MG/DL (0.60-1.30); GLOMERULAR FILTRATION RATE 27 ML/MIN (>89); GLUCOSE,RANDOM 372 MG/DL (74-106); SODIUM (NA) 152 MEQ/L (136-145); TOTAL BILIRUBIN ADULT 0.6 MG/DL (0.2-1.0); TOTAL PROTEIN 5.1 GM/DL (6.4-8.2)
--- NOTE | 2017-10-19 09:53 | RADRPT ---
EXAM DATE/TIME: 10/19/2017 09:30 [facility] COMPARISON: CHEST SINGLE AP, October 19, 2017, 2:56. INDICATIONS : Respiratory failure. MEDICAL HISTORY : Hypertension. Coronary artery disease. SURGICAL HISTORY : None. ENCOUNTER: Subsequent ACUITY: 2 days PAIN SCORE: Non-responsive. LOCATION: Bilateral chest FINDINGS: Multiple metallic foreign bodies are again seen overlying the right hemithorax the endotracheal tube tip at the inferior margin of the clavicles. NG tube side-port at the upper stomach. There are bilate ral nodular opacities again seen. Osseous structures are intact. CONCLUSION: No significant change has occurred. Alexx Baig MD on October 19, 2017 at 9:50 Board Certified Radiologist. This report was verified electronically.
[2017-10-19] MEDS: LACTULOSE SYRUP 20 GM/30 ML CUP PO SCH ×2 (10:16→20:03)
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
[2017-10-19] MEDS: SODIUM CHLORIDE 0.9% FLUSH 10 ML FLUSH IV FLUSH SCH ×2 (10:27→20:03)
--- NOTE | 2017-10-19 10:35 | RADRPT ---
EXAM DATE/TIME: 10/19/2017 09:46 [place] COMPARISON: No previous studies available for comparison. INDICATIONS : Increased BUN/creatinine. MEDICAL HISTORY : Hypertension. Coronary artery disease. Bipolar disorder. Depression. Substance and tobacco use. SURGICAL HISTORY : Unable to obtain. ENCOUNTER: Initial ACUITY: 1 day PAIN SCORE: Nonresponsive. LOCATION: Bilateral flank MEASUREMENTS: RIGHT KIDNEY: 13.0 x 5.9 x 5.9 cm LEFT KIDNEY: 13.1 x 6.4 x 7.2 cm FINDINGS: RIGHT KIDNEY: Renal cortex is normal in thickness and echotexture. No hydronephrosis, stone, or mass. LEFT KIDNEY: Renal cortex is normal in thickness and echotexture. No hydronephrosis, stone, or mass. BLADDER: Within normal limits given the degree of distension. CONCLUSION: Normal examination. Alexx Baig MD on October 19, 2017 at 10:33 Board Certified Radiologist. This report was verified electronically.
[2017-10-19] MEDS ORDERED: POTASSIUM CHLORIDE 25 MEQ EFFERVESCENT TAB PO ONE (12:15)
--- NOTE | 2017-10-19 12:17 | EKG ---
Date Performed: 10/18/2017 Time Performed: 22:45:43 PTAGE: 42 years EKG: SINUS TACHYCARDIA WITH SHORT [place] INTERVAL, POSSIBLE ATRIAL FLUTTER BORDERLINE RIGHT AXIS DEV IATION INTRAVENTRICULAR CONDUCTION DELAY ABNORMAL ECG NO PREVIOUS TRACING DOCTOR: Huey Gay Interpretating Date/Time 10/19/2017 12:14:46
[2017-10-19] MEDS ORDERED: POTASSIUM CHLOR 40 MEQ PREMIX 100 ML IV SCH (13:00)
[2017-10-19 13:25] LABS: HEMATOCRIT 31.8 % (39.0-51.0); HEMOGLOBIN 10.9 GM/DL (13.0-17.0); MEAN CELL VOLUME 77.2 FL (80.0-100.0); MEAN CORPUSCULAR HEMOGLOBIN 26.5 PG (27.0-34.0); MEAN CORPUSCULAR HGB CONC 34.3 % (32.0-36.0); MEAN PLATELET VOLUME 9.3 FL (7.0-11.0); PLATELET COUNT 102 TH/MM3 (150-450); RED BLOOD COUNT 4.12 MIL/MM3 (4.50-5.90); RED CELL DISTRIBUTION WIDTH 14.7 % (11.6-17.2); WHITE BLOOD COUNT 20.5 TH/MM3 (4.0-11.0)
--- NOTE | 2017-10-19 13:31 | ECHRPT ---
Indication: CONCLUSIONS Normal left ventricular size The left ventricular systolic function is normal with an estimated eje ction fraction in the range of 60-65%. Left ventricular diastolic function parameters are normal. Mild concentric left ventricular hypertrophy. BP: / HR: Rhythm: MEASUREMENTS (Male / Female) Normal Values Technical Quality: 2D ECHO LV Diastolic Diameter PLAX 4.7 cm 4.2 - 5.9 / 3.9 - 5.3 cm LV Systolic Diameter PLAX 3.2 cm IVS Diastolic Thickness 1.8 cm 0.6 - 1.0 / 0.6 - 0.9 cm LVPW Diastolic Thickness 1.3 cm 0.6 - 1.0 / 0.6 - 0.9 cm LV Relative Wall Thickness 0.7 RV Internal Dim ED PLAX 2.9 cm M-MODE Aortic Root Diameter MM 3.2 cm LA Systolic Diameter MM 3.5 cm LA Ao Ratio MM 1.1 AV Cusp Separation MM 2.0 cm DOPPLER Mitral E Point Velocity 67.9 cm/s Mitral A Point Velocity 58.4 cm/s Mitral E to A Ratio 1.2 LV E' Septal Velocity 9.8 cm/s Mitral E to LV E' Septal Ratio 7.0 FINDINGS LEFT VENTRICLE Normal left ventricular size The left ventricular systolic function is normal with an estimated eje ction fraction in the range of 60-65%. Left ventricular diastolic function parameters are normal. Mild concentric left ventricular hypertrophy. RIGHT VENTRICLE Normal right ventricular size and systolic function. LEFT ATRIUM The left atrial size is normal. RIGHT ATRIUM The right atrial size is normal. ATRIAL SEPTUM Normal atrial septal thickness without atrial level shunting by limited color doppler interrogation. AORTA The aortic root and proximal ascending aorta are not well visualized. MITRAL VALVE Structurally normal mitral valve. No mitral valve stenosis or regurgitation. AORTIC VALVE Trileaflet aortic valve. No aortic valve stenosis no aortic valve regurgitation. TRICUSPID VALVE Structurally normal tricuspid valve. There is trace tricuspid valve regurgitation. PULMONARY VALVE Trivial pulmonary valve regurgitation. VESSELS The inferior vena cava was not well visualized. PERICARDIUM No pericardial effusion. Medardo Rosenberg MD, FACC (Electronically Signed) Final Date:19 Oct 2017 13:31
[2017-10-19] MEDS ORDERED: [UNRECOGNIZED DRUG - OTHER] IV SCH (14:00)
[2017-10-19] MEDS ORDERED: SODIUM BICARBONATE IV SCH ×2 (14:00→15:00)
[2017-10-19] MEDS ORDERED: POTASSIUM CHLORIDE IV SCH ×2 (14:00→15:00)
[2017-10-19] MEDS: MIDAZOLAM 50 MG/50 ML INJ 50 ML IV PRN ×2 (14:01→19:44)
[2017-10-19] MEDS: INSULIN DETEMIR 100 UNITS/ML VIAL SQ SCH ×2 (14:02→20:02)
--- NOTE | 2017-10-19 14:09 | EKG ---
Date Performed: 10/19/2017 Time Performed: 01:19:49 PTAGE: 42 years EKG: UNCERTAIN IRREGULAR RHYTHM INTRAVENTRICULAR CONDUCTION DELAY ABNORMAL ECG PREVIOUS TRACING 10/18/2017 22.45 Since the previous tracing, no significant change noted DOCTOR: Huey Gay Interpretating Date/Time 10/19/2017 14:07:58
[2017-10-19 14:31] LABS: BICARBONATE 13.7 MEQ/L (21.0-32.0); BLOOD UREA NITROGEN 34 MG/DL (7-18); CALCIUM 7.7 MG/DL (8.5-10.1); CHLORIDE 123 MEQ/L (98-107); CHOLESTEROL 178 MG/DL (120-200); CHOLESTEROL/ HDL RATIO 5.51 RATIO; CREATININE 2.73 MG/DL (0.60-1.30); GLOMERULAR FILTRATION RATE 31 ML/MIN (>89); GLUCOSE,RANDOM 366 MG/DL (74-106); HDL CHOLESTEROL 32.3 MG/DL (40.0-60.0); LDL CHOLESTEROL 104 MG/DL (0-99); MAGNESIUM 2.8 MG/DL (1.5-2.5); PHOSPHORUS 1.8 MG/DL (2.5-4.9); SODIUM (NA) 150 MEQ/L (136-145); TRIGLYCERIDES 208 MG/DL (42-150)
[2017-10-19] MEDS ORDERED: [UNRECOGNIZED DRUG - OTHER] IV SCH (15:00)
[2017-10-19 15:52] LABS: BICARBONATE 15.1 MEQ/L (21.0-32.0); CALCIUM 7.2 MG/DL (8.5-10.1); CREATININE 2.84 MG/DL (0.60-1.30); MAGNESIUM 2.7 MG/DL (1.5-2.5); PHOSPHORUS 2.7 MG/DL (2.5-4.9)
[2017-10-19 16:05] LABS: CALCIUM-PROTEIN CORRECTED 8.2 MG/DL (8.5-10.1); TOTAL PROTEIN 5.3 GM/DL (6.4-8.2)
[2017-10-19] MEDS: SODIUM BICARBONATE 8.4% INJ 100 MEQ in WATER STERILE FOR INJ 900 ML IV SCH ×2 (16:07→21:44)
--- NOTE | 2017-10-19 16:12 | PD.CONS ---
HPI Service Nephrology Consult Requested By Reason for Consult Acute Renal Failure Primary Care Physician [facility] History of Present Illness This is a 42 y/o male who was admitted for anorexia and polydipsia. He has no known hx of diabetes, but was admitted with glucose over 1800, in DKA. His creatinine was 3 on arrival, no baseline labs available. It has varied but is 3.12 today. He has been severely hypokalemic and hypernatremic this admission. Overnight he suffered cardiac arrest, was intubated, and seen in CVICU. We were consulted to assist. All of the information was obtained from the chart. ([place]) Review of Systems ROS Limitations: Intubated, Unresponsive ([place] Dav[place]) Past Family Social History Allergies: Coded Allergies: No Known Allergies (Unverified Allergy, Unknown, 10/18/17) Past Medical History Depression/anxiety Hypertension chronic pain Past Surgical History Unknown Reported Medications Oravig (Miconazole) 50 Mg Nitza 50 Mg BUCCAL DAILY Hydroxyzine HCl 10 Mg Tab 10 Mg PO TID PRN Naproxen 500 Mg Tab 500 Mg PO BID Buspirone (Buspirone HCl) 10 Mg Tab 10 Mg PO DAILY Amlodipine-Benazepril 10-20 Mg Cap 1 Cap DAILY Divalproex ER (Divalproex Sodium) 250 Mg [place] 250 Mg PO DAILY Quetiapine (Quetiapine Fumarate) 100 Mg Tab 100 Mg PO DAILY Lisinopril 20 mg (Lisinopril) 20 Mg Tab 20 Mg PO BID Active Ordered Medications Current Medications Medications (Trade) Dose Ordered Sig/Jacky Route Start Time Stop Time Status Last Admin (NS Flush) 2 ml UNSCH PRN IV FLUSH 10/19/17 02:30 (NS Flush) 2 ml BID IV FLUSH 10/19/17 09:00 10/19/17 10:27 (Morphine Inj) 2 mg Q2H PRN IV PUSH 10/19/17 02:30 (Duoneb Neb) 1 ampule Q6HR NEB INH 10/19/17 04:00 10/19/17 09:49 (Albuterol Neb) 2.5 mg Q2HR NEB PRN INH 10/19/17 02:30 ([facility] Nursing Information) 1 Q361D XX 10/19/17 02:30 (Chlorhexidine 2% Cloth) 3 pack Taper DAILY@04 TOP 10/19/17 04:00 10/15/18 03:59 10/19/17 04:00 (Chlorhexidine 2% Cloth) 3 pack UNSCH PRN TOP 10/19/17 02:30 (Candace-Colace) 1 tab BID PO 10/19/17 09:00 (Milk Of Magnesia Liq) 30 ml Q12H PRN PO 10/19/17 02:30 (Senokot) 17.2 mg Q12H PRN PO 10/19/17 02:30 (Dulcolax Supp) 10 mg DAILY PRN RECTAL 10/19/17 02:30 (Lactulose Liq) 30 ml DAILY PRN PO 10/19/17 02:30 (Zofran Odt) 4 mg Q6H PRN PO 10/19/17 02:30 (Protonix Inj) 40 mg BID IV PUSH 10/19/17 09:00 10/19/17 09:00 (Tears Naturale Opth Soln) 1 drop Q8HR EACH EYE 10/19/17 06:00 (Peridex 0.12% Liq) 15 ml BID@08,20 MT 10/19/17 08:00 10/19/17 08:00 Propofol 100 ml @ 3.24 mls/hr TITRATE PRN IV 10/19/17 03:00 Norepinephrine Bitartrate 4 mg/ Sodium Chloride 250 ml @ 7.5 mls/hr TITRATE PRN IV 10/19/17 03:30 10/19/17 03:36 Acetaminophen 100 ml @ 400 mls/hr Q8H PRN IV 10/19/17 03:30 Pharmacy Profile Note 0 ml @ 0 mls/hr UNSCH OTHER 10/19/17 04:00 Cefepime HCl 2000 mg/Sodium Chloride 100 ml @ 200 mls/hr Q12H IV 10/19/17 04:00 10/19/17 05:28 Metronidazole 100 ml @ 100 mls/hr Q6H IV 10/19/17 04:00 10/19/17 09:58 (Lactulose Liq) 30 ml BID PO 10/19/17 09:00 10/19/17 10:16 (D50w (Vial) Inj) 50 ml UNSCH PRN IV PUSH 10/19/17 04:15 (Glucagon Inj) 1 mg UNSCH PRN OTHER 10/19/17 04:15 Vasopressin 40 units/Dextrose 100 ml @ 1.5 mls/hr TITRATE PRN IV 10/19/17 07:45 10/19/17 09:03 Phenylephrine HCl 40 mg/Dextrose 500 ml @ 30 mls/hr TITRATE PRN IV 10/19/17 07:45 10/19/17 08:43 (Brethine Inj) 1 mg UNSCH PRN SQ 10/19/17 07:45 Fentanyl Citrate 250 ml @ 5 mls/hr TITRATE PRN IV 10/19/17 08:15 10/19/17 08:42 Potassium Chloride 100 ml @ 25 mls/hr ONCE IV 10/19/17 13:00 10/20/17 16:59 (Levemir Inj) 10 units Q12HR SQ 10/19/17 13:15 10/19/17 14:02 Midazolam HCl 50 ml @ 2 mls/hr TITRATE PRN IV 10/19/17 14:00 10/19/17 14:01 Sodium Bicarbonate 100 meq/Sterile Water 1,000 ml @ 150 mls/hr Q6H40M IV 10/20/17 16:00 Family History Unable to obtain Social History Recently incarcerated Other information unable to obtain ([place] Dav[place]os) Physical Exam Vital Signs Vital Signs Date Time Temp Pulse Resp B/P (MAP) Pulse Ox O2 Delivery O2 Flow Rate FiO2 10/19/17 15:48 96.9 91 24 118/62 (80) 95 83/56 (65) 10/19/17 15:47 110 10/19/17 15:46 96 Mechanical Ventilator 100 10/19/17 15:45 50 10/19/17 15:30 89 69/51 10/19/17 14:55 92 72/54 10/19/17 14:39 93 69/50 10/19/17 12:14 50 10/19/17 12:12 100 10/19/17 11:16 96 Mechanical Ventilator 100 10/19/17 11:15 100 10/19/17 11:00 90 10/19/17 11:00 98.1 83 22 121/79 (93) 97 121/67 (85) 10/19/17 10:54 84 110/70 10/19/17 09:52 96 100 10/19/17 09:36 92 87/45 10/19/17 09:26 93 84/44 10/19/17 09:03 95 84/48 10/19/17 09:03 95 86/44 10/19/17 08:47 100 79/43 10/19/17 08:43 100 101/43 10/19/17 08:25 98 100 10/19/17 08:15 96 Mechanical Ventilator 100 10/19/17 07:35 100 10/19/17 07:00 130 10/19/17 07:00 97.6 102 22 120/60 (80) 96 10/19/17 05:30 60 10/19/17 04:40 97 50 10/19/17 03:36 95 86/36 10/19/17 03:30 98 100 10/19/17 03:29 10/19/17 03:15 98 Mechanical Ventilator 100 10/19/17 03:15 100 100 10/19/17 03:15 99.9 81 18 93/41 (58) 96 10/19/17 02:02 98.1 103 18 132/58 (82) 100 100 10/19/17 01:49 100 100 10/19/17 01:42 105 22 129/76 (93) 98 Non-Rebreather 15.00 10/19/17 01:06 101.1 105 24 137/77 (97) 98 Nasal Cannula 2.00 10/18/17 23:30 104.7 136 36 100 Non-Rebreather 10/18/17 23:02 104.9 145 36 143/66 (91) 100 Non-Rebreather 15.00 10/18/17 22:50 148 10/18/17 22:42 105.1 150 40 143/66 (91) 99 Physical Exam AAM patient, intubated and unresponsive Vent settings: S/C 24/550/50/5 Lungs clear S1S2, RRR, no murmurs hypotensive Abd soft, non tender Ext no edema Chiang in place Laboratory Laboratory Tests Test 10/18/17 22:56 10/18/17 23:05 10/19/17 00:55 10/19/17 02:25 White Blood Count 14.8 Red Blood Count 3.92 Hemoglobin 10.5 Hematocrit 36.1 Mean Corpuscular Volume 92.0 Mean Corpuscular Hemoglobin 26.9 Mean Corpuscular Hemoglobin Concent 29.2 Red Cell Distribution Width 16.7 Platelet Count 170 Mean Platelet Volume 11.3 Neutrophils (%) (Auto) 85.8 Lymphocytes (%) (Auto) 1.3 Monocytes (%) (Auto) 12.1 Eosinophils (%) (Auto) 0.1 Basophils (%) (Auto) 0.7 Neutrophils # (Auto) 12.7 Lymphocytes # (Auto) 0.2 Monocytes # (Auto) 1.8 Eosinophils # (Auto) 0.0 Basophils # (Auto) 0.1 CBC Comment DIFF FINAL Differential Comment Urine Color COLORLESS Urine Turbidity CLEAR Urine pH 5.5 Urine Specific [place] 1.024 Urine Protein NEG Urine Glucose (UA) 1000 Urine Ketones 40 Urine Occult Blood TRACE Urine Nitrite NEG Urine Bilirubin NEG Urine Urobilinogen LESS THAN 2.0 Urine Leukocyte Esterase NEG Urine WBC 2 Urine Transitional Epithelial Cells <1 Urine Mucus FEW Microscopic Urinalysis Comment CULT NOT INDICATED Blood Urea Nitrogen 37 35 Creatinine 3.07 2.77 Random Glucose 1872 1247 Total Protein 5.9 6.1 Albumin 3.1 3.1 Calcium Level 7.1 7.7 Alkaline Phosphatase 95 104 Aspartate Amino Transf (AST/SGOT) 5 6 Alanine Aminotransferase (ALT/SGPT) 15 13 Total Bilirubin 0.8 0.5 Sodium Level 121 139 Potassium Level 2.7 1.6 Chloride Level 86 108 Carbon Dioxide Level 11.5 13.2 Anion Gap 24 18 Estimat Glomerular Filtration Rate 27 31 Lactic Acid Level 2.5 Protein Corrected Calcium 7.7 Total Creatine Kinase 84 C-Reactive Protein 1.60 Salicylates Level 5.0 Urine Opiates Screen NEG Acetaminophen Level LESS THAN 2.0 Urine Barbiturates Screen NEG Urine Amphetamines Screen NEG Urine Benzodiazepines Screen NEG Urine Cocaine Screen NEG Urine Cannabinoids Screen NEG Ethyl Alcohol Level LESS THAN 3 B-Hydroxybutyrate 5.68 Venous Blood pH 7.12 6.87 Phosphorus Level 0.7 Magnesium Level 3.0 Blood Gas Puncture Site LINE Blood Gas Patient Temperature 98.6 Venous Blood Partial Pressure CO2 105 Venous Blood Partial Pressure O2 35 Venous Blood HCO3 18 Venous Blood Oxygen Saturation 44 Venous Blood Oxygen Content 5.9 Venous Blood Base Excess -13.7 Oxygen Delivery Device VENTILATOR Blood Gas Ventilator Setting COMMENT Blood Gas Inspired Oxygen 100 Test 10/19/17 03:10 10/19/17 03:45 10/19/17 04:22 10/19/17 05:20 Blood Urea Nitrogen 33 Creatinine 2.99 Random Glucose 1076 Calcium Level 7.6 Phosphorus Level 2.3 Magnesium Level 3.3 Sodium Level 146 147 Potassium Level 1.6 1.5 Chloride Level 114 Carbon Dioxide Level 20.8 Anion Gap 11 Estimat Glomerular Filtration Rate 28 Prothrombin Time 11.5 Prothromb Time International Ratio 1.1 Activated Partial Thromboplast Time 24.5 Fibrinogen 206 Blood Gas Puncture Site RT RADIAL Blood Gas Patient Temperature 98.6 Blood Gas HCO3 19 Blood Gas Base Excess -11.8 Blood Gas Oxygen Saturation 97 Arterial Blood pH 6.95 Arterial Blood Partial Pressure CO2 91 Arterial Blood Partial Pressure O2 246 Arterial Blood Oxygen Content 13.8 Arterial Blood Carboxyhemoglobin 0.2 Arterial Blood Methemoglobin 1.7 Blood Gas Hemoglobin 9.7 Oxygen Delivery Device VENTILATOR Blood Gas Ventilator Setting PRVC/AC Blood Gas Inspired Oxygen 100 Urine Eosinophils NONE SEEN Lactic Acid Level 2.9 Total Creatine Kinase 273 Test 10/19/17 08:40 10/19/17 08:45 10/19/17 12:00 10/19/17 12:02 Blood Urea Nitrogen 34 34 Creatinine 3.12 2.73 Random Glucose 372 366 Total Protein 5.1 Albumin 2.6 Calcium Level 8.1 7.7 Alkaline Phosphatase 98 Aspartate Amino Transf (AST/SGOT) 199 Alanine Aminotransferase (ALT/SGPT) 92 Total Bilirubin 0.6 Sodium Level 152 150 Potassium Level 2.0 2.0 Chloride Level 124 123 Carbon Dioxide Level 13.4 13.7 Anion Gap 15 13 Estimat Glomerular Filtration Rate 27 31 Serum Osmolality 337 Blood Gas Puncture Site ART LINE ART LINE Blood Gas Patient Temperature 98.6 98.6 Blood Gas HCO3 13 13 Blood Gas Base Excess -14.8 -14.0 Blood Gas Oxygen Saturation 97 97 Arterial Blood pH 7.11 7.14 Arterial Blood Partial Pressure CO2 42 40 Arterial Blood Partial Pressure O2 349 412 Arterial Blood Oxygen Content 15.0 15.4 Arterial Blood Carboxyhemoglobin 0.5 0.5 Arterial Blood Methemoglobin 1.7 1.8 Blood Gas Hemoglobin 10.3 10.5 Oxygen Delivery Device VENTILATOR VENTILATOR Blood Gas Ventilator Setting PRVC24/550/+5PEEP PRVC24/550/+5PEEP Blood Gas Inspired Oxygen 100 100 Phosphorus Level 1.8 Magnesium Level 2.8 Lactic Acid Level 1.6 Triglycerides Level 208 Cholesterol Level 178 LDL Cholesterol 104 HDL Cholesterol 32.3 Cholesterol/HDL Ratio 5.51 Thyroid Stimulating Hormone 3rd Gen 0.606 Valproic Acid (Depakene) Level 5 B-Hydroxybutyrate 1.35 Test 10/19/17 12:50 10/19/17 12:53 10/19/17 13:00 10/19/17 14:26 Urine Ketones 10 Urine Random Potassium 11 White Blood Count 20.5 Red Blood Count 4.12 Hemoglobin 10.9 Hematocrit 31.8 Mean Corpuscular Volume 77.2 Mean Corpuscular Hemoglobin 26.5 Mean Corpuscular Hemoglobin Concent 34.3 Red Cell Distribution Width 14.7 Platelet Count 102 Mean Platelet Volume 9.3 Random Cortisol 43.8 Blood Urea Nitrogen 36 Creatinine 2.84 Random Glucose 379 Calcium Level 7.2 Phosphorus Level 2.7 Magnesium Level 2.7 Sodium Level 150 Potassium Level 4.6 Chloride Level 119 Carbon Dioxide Level 15.1 Anion Gap 16 Estimat Glomerular Filtration Rate 30 B-Hydroxybutyrate 2.14 Date/Time Source Procedure Growth Status 10/18/17 22:56 Blood Peripheral Aerobic Blood Culture - Preliminary NO GROWTH IN 1 DAY Resulted 10/18/17 22:56 Blood Peripheral Anaerobic Blood Culture - Preliminary NO GROWTH IN 1 DAY Resulted 10/19/17 13:00 Nasal Aspirate Influenza Types A,B Antigen (TAHMINA) - Final NEGATIVE FOR FLU A AND B ANTIGEN.... Complete 10/18/17 00:00 Urine Catheterized Urine Legionella Antigen - Final PRESUMPTIVE NEGATIVE FOR LEGIONELLA P... Complete 10/18/17 00:00 Urine Catheterized Urine Streptococcus pneumoniae Antigen (M - Final PRESUMPTIVE NEGATIVE FOR STREPTOCOCCU... Complete ([place]) Result Diagram: 10/19/17 1300 10/19/17 1426 Imaging Last Impressions Chest X-Ray 10/19/17 0253 Signed Impressions: Service Date/Time: Thursday, October 19, 2017 02:56 - CONCLUSION: 1. Bilateral pulmonary infiltrates. Dennis Claire Jr., MD Renal Ultrasound 10/19/17 0000 Signed Impressions: Service Date/Time: Thursday, October 19, 2017 09:46 - CONCLUSION: Normal examination. Alexx Baig MD ([place]) Assessment and Plan Problem List: (1) Acute kidney injury ICD Codes: N17.9 - Acute kidney failure, unspecified Status: Acute Plan: No baseline labs available for comparison May have initially had prerenal azotemia due to dehydration (secondary to hyperglycemia/DKA), but most likely has progressed to ATN, especially s/p cardiac arrest Hypokalemic, see below UA without proteinuria He has metabolic acidosis, IVF changed to SW with 2 amps @ 100 cc/hr Avoid nephrotoxic agents. Non oliguric, monitor output Pressors if need to maintain MAP > 65mmHg, currently on three Repeat labs in AM (2) Hyperglycemia ICD Codes: R73.9 - Hyperglycemia, unspecified Plan: with DKA On insulin gtt, continue per protocol. (3) Hypokalemia ICD Codes: E87.6 - Hypokalemia Status: Acute Plan: persistent hypokalemia in the presence of metabolic acidosis signifies a profound body depletion of potassium Continue replacement , follow labs (4) Hypernatremia ICD Codes: E87.0 - Hyperosmolality and hypernatremia Plan: Free water via NG/OG Use hypotonic fluids Follow BMP ([place]) Assessment and Plan patient was seen and examined. CADY initially thought to be secondary to pre- renal, likely has suffered ATN. Baseline renal function is not known. Patient presented withe severe body depletion of potassium, as he was severely hypokalemic in the presence of acidosis. He was on a potassium drip. When I saw him, POC potassium had increased to 4.7 I changed IVF to sterile water with 100 mEq of NaHCO3. Patient has hypernatremia. He suffered cardiac arrest, resuscitation took 30 minutes. It is possible that he has suffered severe hypoxic brain injury. Continue bicarbonate drip. Monitor urine output and renal function, as well as electrolytes. Prognosis is guarded. Discussed with Dr. Giles. (Shad Schroeder MD) [place] Daval[place] October 19, 2017 16:12 Shad Schroeder MD October 19, 2017 22:53
[2017-10-19] MEDS ORDERED: CALCIUM CHLORIDE 10% SOLN 1 GRAM/10 ML SYR IV PUSH SCH (16:15)
[2017-10-19 16:51] LABS: BICARBONATE 12.4 MEQ/L (21.0-32.0); CALCIUM 8.3 MG/DL (8.5-10.1); CREATININE 2.86 MG/DL (0.60-1.30)
--- NOTE | 2017-10-19 17:23 | MG ---
cc: Carlitos Coleman MD, Mandeep MD EEG RECORD 08-82 INTERPRETATION: Generalized 1-2 Hz delta activity occurring 10-50 microvolts throughout the recording. A lot of myogenic electrical artifact towards the end of the recording. No driving with photic stimulation. Limited variability reactivity. Single lead EKG showing sinus rhythm. IMPRESSION: Moderate to severe encephalopathy. Clinical correlation. MD CORDELL Guadarrama/ , 05:05 PM , 05:23 PM
[2017-10-19 19:13] LABS: BICARBONATE 13.9 MEQ/L (21.0-32.0); CALCIUM 7.9 MG/DL (8.5-10.1); CREATININE 2.95 MG/DL (0.60-1.30)
[2017-10-19] MEDS ORDERED: MIDAZOLAM HCL 5 MG/ML VIAL (1 ML) ONE (20:21)
[2017-10-19] MEDS ORDERED: INSULIN ASPART SUPPLEMENTAL SCALE SQ SCH (22:00)
[2017-10-19 22:23] LABS: BICARBONATE 15.2 MEQ/L (21.0-32.0); CALCIUM 7.5 MG/DL (8.5-10.1); CREATININE 2.98 MG/DL (0.60-1.30)
[2017-10-19] MEDS ORDERED: MISC INFORMATION OTHER ONE (23:30)
[2017-10-19] MEDS ORDERED: INSULIN REGULAR (IV INFUSION) 100 UNITS in SODIUM CHLORIDE 0.9% INJ 99 ML IV PRN (23:30)
[2017-10-20] VITALS (13 sets, daily range): BP systolic 125–156; BP diastolic 70–90; PULSE 111–132; RESP 24–29; TEMP 98.5–101.3; O2SAT 80–98
[2017-10-20 01:25] LABS: CREATININE, RANDOM URINE 69.9 MG/DL
[2017-10-20] MEDS: PHENYLEPHRINE 40 MG in D5W 500 ML IV PRN (01:55)
[2017-10-20] MEDS: RESP: ALBUTEROL 2.5 MG/IPRATROPIUM 0.5 MG NEB (SCH) INH ×4 (03:52→22:00)
[2017-10-20] MEDS: CHLORHEXIDINE GLUCONATE 2 % 1 PACK (2 CLOTHS) TOP SCH (04:00)
[2017-10-20] MEDS: metroNIDAZOLE 500 MG INJ 100 ML IV SCH ×4 (05:30→21:28)
[2017-10-20] MEDS: CEFEPIME INJ 2,000 MG in SODIUM CHLORIDE 0.9% INJ 100 ML IV SCH ×2 (05:30→17:27)
[2017-10-20 05:31] LABS: HEMATOCRIT 29.6 % (39.0-51.0); HEMOGLOBIN 10.3 GM/DL (13.0-17.0); MEAN CELL VOLUME 75.7 FL (80.0-100.0); MEAN CORPUSCULAR HEMOGLOBIN 26.5 PG (27.0-34.0); MEAN PLATELET VOLUME 9.9 FL (7.0-11.0); PLATELET COUNT 67 TH/MM3 (150-450); RED BLOOD COUNT 3.91 MIL/MM3 (4.50-5.90); RED CELL DISTRIBUTION WIDTH 14.6 % (11.6-17.2); WHITE BLOOD COUNT 17.1 TH/MM3 (4.0-11.0)
[2017-10-20 05:46] LABS: INTERNATIONAL NORMALIZED RATIO 1.2 RATIO; PROTHROMBIN TIME - PATIENT 12.4 SEC (9.8-11.6)
[2017-10-20] MEDS: ARTIFICIAL TEARS OPTH SOLN 15 ML BTL EACH EYE SCH ×3 (06:00→21:28)
--- NOTE | 2017-10-20 06:23 | PD.PROCEDR ---
Procedure Note Procedure Procedure- right radial arterial line placement Indication- invasive hemodynamic monitoring Description of procedure: The patient was placed in supine, position. The area was exposed and cleansed with ChloraPrep, times two. Sterile drape was used to cover the patient, with the site exposed, under sterile conditions including cap , face mask, and sterile gloves. On single attempt, the introducer needle was inserted and arterial flash was obtained. The guide wire was then advanced without any restriction and the needle was removed. Using Seldinger technique the 16 cm arterial catheter was advanced over the guide wire. The guide wire was removed. Good arterial waveform obtained. Antibiotic disc was placed around arterial line at puncture site. The arterial line was secured to the skin with one interrupted silk sutures. The area was bandaged with sterile see- through central line bandage. Radha Valdes MD October 20, 2017 06:23
[2017-10-20] MEDS: SODIUM BICARBONATE 8.4% INJ 100 MEQ in WATER STERILE FOR INJ 900 ML IV SCH ×2 (06:30→12:17)
[2017-10-20] MEDS: NOREPINEPHRINE INJ 4 MG in SODIUM CHLOR 0.9% 250 ML INJ 246 ML IV PRN (06:30)
[2017-10-20 06:34] LABS: ALBUMIN 2.6 GM/DL (3.4-5.0); ALKALINE PHOSPHATASE 112 U/L (45-117); ALT (GPT) 2447 U/L (12-78); AST (GOT) 9475 U/L (15-37); BICARBONATE 24.4 MEQ/L (21.0-32.0); BLOOD UREA NITROGEN 47 MG/DL (7-18); CALCIUM 7.6 MG/DL (8.5-10.1); CHLORIDE 120 MEQ/L (98-107); CREATININE 3.16 MG/DL (0.60-1.30); GLOMERULAR FILTRATION RATE 27 ML/MIN (>89); GLUCOSE,RANDOM 156 MG/DL (74-106); MAGNESIUM 2.4 MG/DL (1.5-2.5); PHOSPHORUS 2.2 MG/DL (2.5-4.9); SODIUM (NA) 155 MEQ/L (136-145); TOTAL BILIRUBIN ADULT 0.7 MG/DL (0.2-1.0); TOTAL PROTEIN 5.5 GM/DL (6.4-8.2)
[2017-10-20 07:51] LABS: BANDS 41 % (0-6); CORRECTED NUCLEATED RBC 2 /100 WBC (0-0); LYMPHOCYTES 12 % (9-44); METAMYELOCYTES 1 % (0-1); MYELOCYTES 1 % (0-0); NUCLEATED RED BLOOD CELL 2 (0-0); POLYS (SEG NEUTROPHILS) 45 % (16-70)
[2017-10-20] MEDS: CHLORHEXIDINE 0.12% (ORAL KIT) 15 ML CUP MT SCH ×2 (08:10→21:27)
[2017-10-20] MEDS: SODIUM CHLORIDE 0.9% FLUSH 10 ML FLUSH IV FLUSH SCH ×2 (08:10→21:27)
[2017-10-20] MEDS: DOCUSATE SODIUM 50 MG/SENNA 8.6 MG TAB PO SCH ×2 (09:00→21:00)
--- NOTE | 2017-10-20 09:05 | HHI.CCPN ---
Subjective Remarks/Hospital Course This is a 42-year-old AA male. Date of admission 10/19/2017. Past medical history includes depression, hypertension. Patient has no known history of diabetes mellitus but has multiple family members with this diagnosis. Over the past month, patient has been experiencing these sequelae of thirst, diminished appetite. Patient was in senior care until recently and has not had his blood sugar checked according to his sister. He denies any sick contacts. Since being released from senior care, patient has been relatively noncompliant with his home medications due to underlying nausea/vomiting and delirium. Patient was drinking copious amounts of fluids at home. Due to his underlying illness is's family convinced him to come to the hospital for further evaluation treatment today. Name Efraín, patient noted to have a blood sugar 1800. Acute kidney injury creatinine of around 3. Sodium 121. Multiple electrolyte and mellitus and elevated ammonia level. Patient originally presented with fever around 105 to his facility. Received 4 mg of cyproheptadine per ED physician first possible serotonin syndrome. He received ice to fluid/water and acetaminophen/NSAIDs and his blood sugars currently subsiding. Patient became more unresponsive in the ED intervention was intubated with central line placed by ED physician. 10/19:The patient went into V. tach at approximately 0720 am. ACLS protocol instituted. Insulin infusion discontinued. 12-lead EKG obtained, stat VBG obtained. 1 g calcium chloride given to stabilize membrane. The patient was defibrillated 1 prior to my arrival and the scene. The patient was given 50 mEq of potassium orally, as well as 20 meq.'s IV.ROSC returned at 0 750. Attempts made to contact family unsuccessful, palliative care consulted to define healthcare POA surrogacy. Repletion of electrolytes per ICU protocol , serial labs continues. Patient awakened post ROSC noted to have spontaneous eye opening movement of extremities 4 but not following commands. Arterial line placed, the patient continues on Levophed and phenylephrine infusion to maintain MAP. The patient was noted to have a significant respiratory acidosis , initial CO2 96, rate was increased at 6 AM subsequent CO2 67 with pH 6.97. Ventilatory rate increased, sodium bicarbonate 1 amp 4 bicarb level is 16.3 given. 10/20: The patient continues intermittently on a cooling blanket. EEG was performed which revealed moderate to severe encephalopathy. When the patient was off sedation spontaneous eye opening no tracking no movement of extremities. No further episodes of V. tach during the night. Potassium was aggressively repleted yesterday, nephrology was consulted regarding elevated creatinine in the setting of hypokalemia. Sodium bicarbonate infusion was instituted , now with resolution of metabolic acidosis .The patient's blood glucose continue to trend upward during the night the patient was placed on a non-DKA insulin infusion, currently at 4 units/hour. The patient continues to require vasopressors and currently on 3 to maintain map greater than 65. The patient is urinary output overnight for 12 hours was approximately 1300 cc. No significant elevation in temperature during the night recorded 100.0 Objective Vital Signs Date Time Temp Pulse Resp B/P (MAP) Pulse Ox O2 Delivery O2 Flow Rate FiO2 10/20/17 07:54 96 40 10/20/17 07:00 99.2 114 25 131/79 (96) 143/75 (97) 10/20/17 07:00 Mechanical Ventilator 10/19/17 01:42 15.00 Intake and Output 10/20/17 10/20/17 10/21/17 08:00 16:00 00:00 Intake Total 1824 ml Output Total 1400 ml Balance 424 ml Result Diagram: 10/20/17 0510 10/20/17 0510 Other Results Microbiology Date/Time Source Procedure Growth Status 10/19/17 13:00 Nasal Aspirate Influenza Types A,B Antigen (TAHMINA) - Final NEGATIVE FOR FLU A AND B ANTIGEN.... Complete 10/18/17 00:00 Urine Catheterized Urine Legionella Antigen - Final PRESUMPTIVE NEGATIVE FOR LEGIONELLA P... Complete 10/18/17 00:00 Urine Catheterized Urine Streptococcus pneumoniae Antigen (M - Final PRESUMPTIVE NEGATIVE FOR STREPTOCOCCU... Complete Laboratory Tests Test 10/19/17 12:00 10/19/17 19:54 10/19/17 21:38 10/20/17 05:05 Blood Gas Puncture Site ART LINE ART LINE ART LINE RT RADIAL Blood Gas Patient Temperature 98.6 98.6 98.6 98.6 Blood Gas HCO3 13 mmol/L (22-26) 12 mmol/L (22-26) 15 mmol/L (22-26) 21 mmol/L (22-26) Blood Gas Base Excess -14.0 mmol/L (-2-2) -14.4 mmol/L (-2-2) -10.5 mmol/L (-2-2) -4.1 mmol/L (-2-2) Blood Gas Oxygen Saturation 97 % (90-100) 96 % (90-100) 96 % (90-100) 96 % ( 90-100) Arterial Blood pH 7.14 (7.380-7.420) 7.19 (7.380-7.420) 7.28 (7.380-7.420) 7.35 (7.380-7.420) Arterial Blood Partial Pressure CO2 40 mmHg (38-42) 33 mmHg (38-42) 33 mmHg (38-42) 38 mmHg (38-42) Arterial Blood Partial Pressure O2 412 mmHg (61-120) 179 mmHg (61-120) 171 mmHg (61-120) 155 mmHg (61-120) Arterial Blood Oxygen Content 15.4 Vol % (12.0-20.0) 15.0 Vol % (12.0-20.0) 14.7 Vol % (12.0-20.0) 14.6 Vol % (12.0-20.0) Arterial Blood Carboxyhemoglobin 0.5 % (0-4) 0.7 % (0-4) 0.9 % (0-4) 0.9 % (0-4) Arterial Blood Methemoglobin 1.8 % (0-2) 1.9 % (0-2) 2.0 % (0-2) 2.0 % (0-2) Blood Gas Hemoglobin 10.5 G/DL (12.0-16.0) 10.8 G/DL (12.0-16.0) 10.6 G/DL (12.0-16.0) 10.6 G/DL (12.0-16.0) Oxygen Delivery Device VENTILATOR VENTILATOR VENTILATOR VENTILATOR Blood Gas Ventilator Setting PRVC24/550/+5PEEP PRVC/AC PRVC/AC PRVC/AC Blood Gas Inspired Oxygen 100 % 50 % 40 % 40 % Imaging Last Impressions Chest X-Ray 10/19/17 0253 Signed Impressions: Service Date/Time: Thursday, October 19, 2017 02:56 - CONCLUSION: 1. Bilateral pulmonary infiltrates. Dennis Claire Jr., MD Renal Ultrasound 10/19/17 0000 Signed Impressions: Service Date/Time: Thursday, October 19, 2017 09:46 - CONCLUSION: Normal examination. Alexx Baig MD Last Impressions Chest X-Ray 10/19/17 0253 Signed Impressions: Service Date/Time: Thursday, October 19, 2017 02:56 - CONCLUSION: 1. Bilateral pulmonary infiltrates. Dennis Claire Jr., MD Objective Remarks GENERAL: 42-year-old AA male currently resting in bed orotracheally intubated and sedated SKIN: Warm and dry. Multiple tattoos HEAD: Atraumatic. Normocephalic. EYES: Pupils equal and round about 2 mm bilaterally and reactive no scleral icterus. No injection or drainage. ENT: No nasal bleeding or discharge. Mucous membranes pink and moist. NECK: Trachea midline. No JVD. CARDIOVASCULAR: Tachycardic, RR. S1-S2 no S4. RESPIRATORY: Diminished breath sounds. Symmetrical excursion. No wheezing appreciated. GASTROINTESTINAL: Abdomen soft, non-tender, nondistended. Hypoactive bowel sounds were appreciated. MUSCULOSKELETAL: Extremities without significant pitting edema. No obvious deformities. NEUROLOGICAL: Currently seen post analgesia for intubation. Positive gag and corneal reflex. Withdraws to pain bilateral upper extremity's. Minimal bilateral lower extremities. Date of Insertion: October 19, 2017 A/P Problem List: (1) Hypokalemia ICD Code: E87.6 - Hypokalemia Status: Acute (2) Acute respiratory failure ICD Code: J96.00 - Acute respiratory failure, unspecified whether with hypoxia or hypercapnia (3) Lactic acidosis ICD Code: E87.2 - Acidosis Status: Acute (4) Hypermagnesemia ICD Code: E83.41 - Hypermagnesemia (5) Pyrexia ICD Code: R50.9 - Fever, unspecified Status: Acute (6) Hyponatremia ICD Code: E87.1 - Hypo-osmolality and hyponatremia Status: Acute (7) Leukocytosis ICD Code: D72.829 - Elevated white blood cell count, unspecified Status: Acute (8) Hypophosphatemia ICD Code: E83.39 - Other disorders of phosphorus metabolism Status: Acute (9) Ketoacidosis due to secondary diabetes ICD Code: E13.10 - Other specified diabetes mellitus with ketoacidosis without coma Status: Acute (10) Acute kidney injury ICD Code: N17.9 - Acute kidney failure, unspecified Status: Acute (11) Acute encephalopathy ICD Code: G93.40 - Encephalopathy, unspecified Status: Acute (12) BMI 37.0-37.9, adult ICD Code: Z68.37 - Body mass index (BMI) 37.0-37.9, adult Status: Acute Assessment and Plan Neuro/Psych: Acute toxic metabolic encephalopathy Depression/anxiety Holding Quetiapine 100 mg daily, divalproex 250 mg daily and buspirone 10 mg p.o. 3 times daily/home medication along with hydroxyzine 10 mg p.o. 3 times daily Patient did received cyproheptadine 4 mg 1 for possible serotonin syndrome by ED physician Versed/fentanyl drips for sedation/analgesia while intubated Goal of RASS of -2 Daily sedation vacation when clinically appropriate currently on 3 vasopressors to maintain MAP> 65 CT brain ordered. 10/19 EEG-moderate to severe encephalopathy Holding buspirone 10 mg daily, divalproex 250 mg daily/check level and ketamine 100 mg p.o. daily. 10/19: S/P ROSC-noticed spontaneous eye opening, spontaneous movement of extremities 4, not following commands CV: Severe sepsis Lactic acidosis History of essential hypertension Sodium bicarbonate infusion @ 150cc/hr Received 10 L normal saline in ED Repeat lactate until cleared Follow-up EKG/troponin Holding home medication of amlodipine/benazepril 10/20 1 tablet daily and lisinopril 20 mg p.o. 2x daily in light of hypertension As needed norepinephrine and phenylephrine to maintain mean arterial pressure greater than equal to 65 Resp: Acute respiratory failure Mixed acidosis PRVC ventilation increased 24/550/0.9/5/50 Ventilator bundle Albuterol/ipratropium aerosols every 4 hours with albuterol aerosols every 2 hours as needed dyspnea Spontaneous breathing trials when clinically indicated 10/20 chest x-ray -bibasilar pulmonary infiltrates GI: Possible upper GI bleed. Hypoalbuminemia NGT to LIWS Dietary consult initiate tube feed Pantoprazole for GI prophylaxis Docusate sodium/senna 1 tablet twice daily for bowel regimen Lactulose 30 cc twice daily. Ammonia level-59 continue to trend : Maintain Chiang catheter for accurate I's and O's Endo: Acute hyperglycemic state Ketoacidosis Insulin infusion 4 units/hr 10/19 Hemoglobin A1c-13 10/19 lipid panel-triglycerides 208 Beta hydroxybutyrate repeat pending. Renal: Acute kidney injury Check urine eosinophils and electrolytes and ultrasound Monitor urine output Accurate I's and O's Heme: Leukocytosis Normocytic anemia Monitor CBC daily. Follow trends Coags currently pending ID: Currently in vancomycin, cefepime and metronidazole day #2 Blood cultures 2, sputum, urine, influenza all ordered F/U results Consider lumbar puncture FEN: Hypokalemia Hypophosphatemia Hypermagnesia Replace electrolytes as clinically indicated. Currently on hypotonic saline to correct sodium Receiving IV phosphorus and potassium Monitor serial electrolyte levels MSK: Elevated BMI of 37 Weight loss encouraged PT evaluate and treat Access -Right femoral CVL day #2 placed in ED by ED physician Prophylaxis GI -pantoprazole -DVT -SCD/holding pharmacological prophylaxis with possible upper GI bleed Critical Care: my billing statement This patient remains critically ill with one or more organ systems which are or may become a threat to life. I have spent in excess of 35 minutes discontinuously in the care and management of this patient. This time is exclusive of procedures, and includes, but is not limited to, evaluation of the patient, review of the medical record, discussions with family, consultants, nursing staff, or respiratory therapy, and documentation in the medical record. Physician Maria Esther Giles Problem Qualifiers (1) Acute respiratory failure: Qualified Codes: J96.01 - Acute respiratory failure with hypoxia; J96.02 - Acute respiratory failure with hypercapnia (2) Pyrexia: Qualified Codes: R50.9 - Fever, unspecified Maria Esther Giles MD October 20, 2017 09:05
[2017-10-20] MEDS: LACTULOSE SYRUP 20 GM/30 ML CUP PO SCH ×2 (09:15→21:00)
[2017-10-20] MEDS: PANTOPRAZOLE SODIUM 40 MG VIAL IV PUSH SCH ×2 (09:16→21:27)
[2017-10-20] MEDS: MIDAZOLAM 50 MG/50 ML INJ 50 ML IV PRN ×2 (09:40→17:00)
[2017-10-20 10:54] LABS: BICARBONATE 25.7 MEQ/L (21.0-32.0); CALCIUM 7.3 MG/DL (8.5-10.1); CREATININE 2.83 MG/DL (0.60-1.30)
[2017-10-20 11:49] LABS: CALCIUM-PROTEIN CORRECTED 8.3 MG/DL (8.5-10.1); TOTAL PROTEIN 5.3 GM/DL (6.4-8.2)
[2017-10-20] MEDS: FREE WATER G-TUBE SCH ×2 (12:00→18:00)
[2017-10-20 12:14] LABS: RANDOM VANCOMYCIN 5.4 COMMENT
[2017-10-20] MEDS: INSULIN REGULAR 100 UNITS/100 ML NS ALGORITHM 3 IV PRN ×2 (12:18)
[2017-10-20] MEDS ORDERED: POTASSIUM CHLORIDE INJ 40 MEQ in SODIUM CHLORID 0.9% 500 ML INJ 500 ML IV-CENTRAL ONE (13:00)
--- NOTE | 2017-10-20 13:00 | HHI.NPPN ---
Subjective Additional Remarks Intubated, sedated Objective Data Data 10/20/17 10/21/17 19:00 07:00 Intake Total 313 ml Balance 313 ml Intake IV Total 313 ml Vital Signs Date Time Temp Pulse Resp B/P (MAP) Pulse Ox O2 Delivery O2 Flow Rate FiO2 10/20/17 12:00 113 155/77 10/20/17 11:00 98.5 111 26 144/90 (108) 96 156/78 (104) 10/20/17 11:00 40 10/20/17 11:00 111 156/78 10/20/17 11:00 98 Mechanical Ventilator 40 10/20/17 09:30 115 151/78 10/20/17 09:00 115 152/79 10/20/17 08:00 117 147/79 10/20/17 07:54 96 40 10/20/17 07:30 114 143/75 10/20/17 07:00 99.2 114 25 131/79 (96) 94 143/75 (97) 10/20/17 07:00 96 Mechanical Ventilator 40 10/20/17 07:00 40 10/20/17 07:00 114 10/20/17 06:30 118 131/78 10/20/17 05:00 114 113/92 10/20/17 05:00 114 113/92 10/20/17 05:00 114 113/92 10/20/17 03:52 98 40 10/20/17 03:00 40 10/20/17 03:00 97 Mechanical Ventilator 40 10/20/17 03:00 99.6 119 28 125/83 (97) 97 130/79 (96) 10/20/17 01:55 121 140/84 10/20/17 01:55 121 140/84 10/20/17 01:19 96 40 10/19/17 23:00 100.2 104 29 133/54 (80) 98 116/87 (97) 10/19/17 23:00 98 Mechanical Ventilator 40 10/19/17 23:00 40 10/19/17 23:00 104 18 21:47 102 112/71 18 21:45 102 114/72 18 20:15 97 40 10/19/17 19:00 98.6 90 28 133/53 (79) 96 114/72 (86) 10/19/17 19:00 90 10/19/17 19:00 96 Mechanical Ventilator 40 10/19/17 19:00 40 10/19/17 17:51 92 70/53 10/19/17 17:01 98.5 10/19/17 16:38 98 50 10/19/17 15:48 96.9 91 24 118/62 (80) 95 83/56 (65) 10/19/17 15:47 110 10/19/17 15:46 96 Mechanical Ventilator 100 10/19/17 15:45 50 10/19/17 15:30 89 69/51 10/19/17 14:55 92 72/54 10/19/17 14:39 93 69/50 -: 10/20/17 0510 10/20/17 0950 Microbiology 10/19/17 Influenza Types A,B Antigen (TAHMINA) - Final, Complete NEGATIVE FOR FLU A AND B ANTIGEN.... Physical Exam General Appearance: No Acute Distress Neck Neck Exam: Neck Supple Pulmonary Resp Exam: Diminished Breath Sounds Gastrointestinal/Abdomen GI Exam: Soft, Non-Tender, Bowel Sounds Present Integumentary Skin Exam: Dry, Intact Extremeties Extremities Exam: Trace Edema Neurologic Neuro Exam: Sedated Assessment/Plan Problem List: (1) Acute kidney injury ICD Codes: N17.9 - Acute kidney failure, unspecified Status: Acute Plan: No baseline labs available for comparison May have initially had prerenal azotemia due to dehydration (secondary to hyperglycemia/DKA), but most likely has progressed to ATN, especially s/p cardiac arrest UA without proteinuria Creatinine improved from 3.1 to 2.8 Initial metabolic acidosis improved Now with hypernatremia - will change IVFs to sterile water @ 150cc/ hour Avoid nephrotoxic agents. Non oliguric 2.2L UOP/ 24 hours. Wean pressors as tolerated. Improving creatinine is encouraging,continue to monitor for improvement Repeat labs in AM (2) Hyperglycemia ICD Codes: R73.9 - Hyperglycemia, unspecified Plan: with DKA On insulin gtt, continue per protocol. (3) Hypokalemia ICD Codes: E87.6 - Hypokalemia Status: Acute Plan: persistent hypokalemia in the presence of metabolic acidosis signifies a profound body depletion of potassium Continue replacement , will order 40meq KCL IV today. follow labs check AM magnesium (4) Hypernatremia ICD Codes: E87.0 - Hyperosmolality and hypernatremia Plan: Free water via NG/OG Use hypotonic fluids Follow BMP Charles Renteria MD October 20, 2017 13:00
[2017-10-20] MEDS: SODIUM CHLORIDE 23.4% INJ 38.5 MEQ in WATER STERILE FOR INJ 1,000 ML IV SCH ×2 (13:49→20:44)
[2017-10-20] MEDS ORDERED: VANCOMYCIN INJ 2,000 MG in SODIUM CHLORID 0.9% 500 ML INJ 500 ML IV ONE (14:00)
--- NOTE | 2017-10-20 14:22 | EKG ---
Date Performed: 10/19/2017 Time Performed: 07:29:56 PTAGE: 42 years EKG: VENTRICULAR TACHYCARDIA PREVIOUS TRACING : 10/19/2017 01.19 DOCTOR: Shon Mendoza Interpretating Date/Time 10/20/2017 14:22:12
[2017-10-20] MEDS: VASOPRESSIN 40 U/D5W 100 ML Titrate, Post Cardiac Surgery IV PRN ×2 (15:58)
[2017-10-20 16:46] LABS: BICARBONATE 20.6 MEQ/L (21.0-32.0); CREATININE 2.7 MG/DL (0.60-1.30)
[2017-10-20 17:03] LABS: CALCIUM-PROTEIN CORRECTED 8.4 MG/DL (8.5-10.1); TOTAL PROTEIN 4.6 GM/DL (6.4-8.2)
[2017-10-20 19:47] LABS: BICARBONATE 22.4 MEQ/L (21.0-32.0); CALCIUM 7.1 MG/DL (8.5-10.1); CREATININE 2.8 MG/DL (0.60-1.30)
[2017-10-20 20:02] LABS: CALCIUM-PROTEIN CORRECTED 8.4 MG/DL (8.5-10.1); TOTAL PROTEIN 4.8 GM/DL (6.4-8.2)
[2017-10-20 21:41] LABS: BICARBONATE 23.8 MEQ/L (21.0-32.0); CALCIUM 7.3 MG/DL (8.5-10.1); CREATININE 2.82 MG/DL (0.60-1.30)
[2017-10-20 21:53] LABS: CALCIUM-PROTEIN CORRECTED 8.3 MG/DL (8.5-10.1); TOTAL PROTEIN 5.2 GM/DL (6.4-8.2)
[2017-10-21] VITALS (16 sets, daily range): BP systolic 111–140; BP diastolic 56–82; PULSE 114–125; RESP 24–27; TEMP 98.1–99.5; O2SAT 97–99
[2017-10-21 02:50] LABS: BICARBONATE 23.8 MEQ/L (21.0-32.0); CALCIUM 7.3 MG/DL (8.5-10.1); CREATININE 2.64 MG/DL (0.60-1.30)
[2017-10-21 03:07] LABS: CALCIUM-PROTEIN CORRECTED 8.4 MG/DL (8.5-10.1); TOTAL PROTEIN 5.1 GM/DL (6.4-8.2)
[2017-10-21] MEDS: SODIUM CHLORIDE 23.4% INJ 38.5 MEQ in WATER STERILE FOR INJ 1,000 ML IV SCH ×2 (03:28→09:05)
[2017-10-21] MEDS: RESP: ALBUTEROL 2.5 MG/IPRATROPIUM 0.5 MG NEB (SCH) INH ×3 (03:41→20:53)
[2017-10-21] MEDS: CHLORHEXIDINE GLUCONATE 2 % 1 PACK (2 CLOTHS) TOP SCH (04:00)
[2017-10-21 04:13] LABS: BICARBONATE 24.2 MEQ/L (21.0-32.0); CALCIUM 7.3 MG/DL (8.5-10.1); CREATININE 2.56 MG/DL (0.60-1.30)
[2017-10-21 04:38] LABS: CALCIUM-PROTEIN CORRECTED 8.4 MG/DL (8.5-10.1); TOTAL PROTEIN 5.1 GM/DL (6.4-8.2)
[2017-10-21] MEDS: metroNIDAZOLE 500 MG INJ 100 ML IV SCH ×4 (05:03→20:33)
[2017-10-21] MEDS: CEFEPIME INJ 2,000 MG in SODIUM CHLORIDE 0.9% INJ 100 ML IV SCH ×2 (05:03→15:26)
[2017-10-21 05:48] LABS: ALBUMIN 2.2 GM/DL (3.4-5.0); BICARBONATE 21.7 MEQ/L (21.0-32.0); CALCIUM 7.2 MG/DL (8.5-10.1); CALCIUM-PROTEIN CORRECTED 8.3 MG/DL (8.5-10.1); CREATININE 2.52 MG/DL (0.60-1.30); MAGNESIUM 2.3 MG/DL (1.5-2.5); PHOSPHORUS 3.2 MG/DL (2.5-4.9); TOTAL PROTEIN 5.1 GM/DL (6.4-8.2)
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
[2017-10-21] MEDS: ARTIFICIAL TEARS OPTH SOLN 15 ML BTL EACH EYE SCH ×3 (06:00→20:34)
[2017-10-21] MEDS: FREE WATER G-TUBE SCH ×4 (06:00→19:38)
[2017-10-21 06:34] LABS: AUTOMATED NEUTROPHIL # 17.6 TH/MM3 (1.8-7.7); BASOPHIL # 0.1 TH/MM3 (0-0.2); BASOPHIL % 0.5 % (0.0-2.0); EOSINOPHIL # 0.1 TH/MM3 (0-0.4); EOSINOPHIL % 0.4 % (0.0-4.0); HEMATOCRIT 27.7 % (39.0-51.0); LYMPH % 10.7 % (9.0-44.0); LYMPHOCYTE # 2.2 TH/MM3 (1.0-4.8); MEAN CELL VOLUME 74.7 FL (80.0-100.0); MEAN CORPUSCULAR HEMOGLOBIN 26.9 PG (27.0-34.0); MEAN PLATELET VOLUME 9.6 FL (7.0-11.0); MONO % 4.1 % (0.0-8.0); MONOCYTE # 0.9 TH/MM3 (0-0.9); NEUT % 84.3 % (16.0-70.0); PLATELET COUNT 46 TH/MM3 (150-450); RED BLOOD COUNT 3.71 MIL/MM3 (4.50-5.90); WHITE BLOOD COUNT 20.9 TH/MM3 (4.0-11.0)
[2017-10-21] MEDS: CHLORHEXIDINE 0.12% (ORAL KIT) 15 ML CUP MT SCH ×2 (08:36→20:34)
[2017-10-21] MEDS: DOCUSATE SODIUM 50 MG/SENNA 8.6 MG TAB PO SCH ×2 (09:00→20:08)
--- NOTE | 2017-10-21 09:28 | HHI.NPPN ---
Subjective Additional Remarks Intubated, sedated Objective Data Data Vital Signs Date Time Temp Pulse Resp B/P (MAP) Pulse Ox O2 Delivery O2 Flow Rate FiO2 10/21/17 07:40 99 40 10/21/17 03:42 97 40 10/21/17 03:00 99.1 117 26 129/67 (87) 98 140/68 (92) 10/21/17 03:00 117 10/21/17 03:00 40 10/21/17 03:00 98 Mechanical Ventilator 40 10/21/17 02:26 98.6 10/20/17 23:00 132 10/20/17 23:00 97 Mechanical Ventilator 40 10/20/17 23:00 40 10/20/17 23:00 100.5 132 29 126/79 (95) 97 144/70 (94) 10/20/17 22:34 98.6 10/20/17 20:40 96 40 10/20/17 19:00 40 10/20/17 19:00 122 10/20/17 19:00 101.3 122 28 138/86 (103) 95 147/75 (99) 10/20/17 19:00 95 Mechanical Ventilator 40 10/20/17 18:45 126 162/73 10/20/17 18:00 123 148/70 10/20/17 16:45 80 40 10/20/17 16:00 123 147/77 10/20/17 15:58 115 134/73 10/20/17 15:00 98 Mechanical Ventilator 40 10/20/17 15:00 115 10/20/17 15:00 40 10/20/17 15:00 99.8 115 24 129/76 (93) 98 134/73 (93) 10/20/17 14:00 113 138/72 10/20/17 13:10 94 40 10/20/17 13:07 114 154/76 10/20/17 12:00 113 155/77 10/20/17 11:00 98.5 111 26 144/90 (108) 96 156/78 (104) 10/20/17 11:00 40 10/20/17 11:00 111 156/78 10/20/17 11:00 98 Mechanical Ventilator 40 10/20/17 09:30 115 151/78 -: 10/21/17 0415 10/21/17 0415 Physical Exam General Appearance: No Acute Distress Neck Neck Exam: Neck Supple Pulmonary Resp Exam: Diminished Breath Sounds Gastrointestinal/Abdomen GI Exam: Soft, Non-Tender, Bowel Sounds Present Integumentary Skin Exam: Dry, Intact Extremeties Extremities Exam: Trace Edema Neurologic Neuro Exam: Sedated Assessment/Plan Problem List: (1) Acute kidney injury ICD Codes: N17.9 - Acute kidney failure, unspecified Status: Acute Plan: No baseline labs available for comparison May have initially had prerenal azotemia due to dehydration (secondary to hyperglycemia/DKA), but most likely has progressed to ATN, especially s/p cardiac arrest UA without proteinuria Creatinine improved from 3.1 to 2.8 to 2.52 2.4L UOP/ 24 hours Initial metabolic acidosis improved Ongoning hypernatremia - on 06/07 NS @ 150cc/ hour Avoid nephrotoxic agents. Continue to wean pressors as tolerated. Improving creatinine is encouraging,continue to monitor for improvement Repeat labs in AM (2) Hyperglycemia ICD Codes: R73.9 - Hyperglycemia, unspecified Plan: with DKA On insulin gtt, continue per protocol. (3) Hypokalemia ICD Codes: E87.6 - Hypokalemia Status: Acute Plan: persistent hypokalemia in the presence of metabolic acidosis signifies a profound body depletion of potassium Given 40meq KCL IV yesterday follow labs Normal magnesium today (4) Hypernatremia ICD Codes: E87.0 - Hyperosmolality and hypernatremia Plan: Free water via NG/OG on 06/07 NS Follow BMP Charles Renteria MD October 21, 2017 09:28
[2017-10-21 09:45] LABS: BANDS 30 % (0-6); DOHLE BODIES PRESENT (NONE SEEN); HOWELL-JOLLY BODIES PRESENT (NONE SEEN); LYMPHOCYTES 3 % (9-44); METAMYELOCYTES 1 % (0-1); MONOCYTES 4 % (0-8); MYELOCYTES 1 % (0-0); NEUTROPHIL # MANUAL DIFF 19.4 TH/MM3 (1.8-7.7); POLYS (SEG NEUTROPHILS) 61 % (16-70)
[2017-10-21] MEDS: LACTULOSE SYRUP 20 GM/30 ML CUP PO SCH ×4 (09:45→20:34)
[2017-10-21] MEDS: PANTOPRAZOLE SODIUM 40 MG VIAL IV PUSH SCH ×2 (09:46→20:33)
[2017-10-21] MEDS: SODIUM CHLORIDE 0.9% FLUSH 10 ML FLUSH IV FLUSH SCH ×2 (09:46→20:34)
[2017-10-21] MEDS: MIDAZOLAM 50 MG/50 ML INJ 50 ML IV PRN (10:49)
[2017-10-21 10:52] LABS: BICARBONATE 22.6 MEQ/L (21.0-32.0); CALCIUM 7.2 MG/DL (8.5-10.1); CREATININE 2.49 MG/DL (0.60-1.30)
[2017-10-21 11:22] LABS: CALCIUM-PROTEIN CORRECTED 8.3 MG/DL (8.5-10.1)
[2017-10-21 12:51] LABS: BICARBONATE 21.1 MEQ/L (21.0-32.0); CALCIUM 7.1 MG/DL (8.5-10.1); CREATININE 2.32 MG/DL (0.60-1.30)
[2017-10-21 13:30] LABS: CALCIUM-PROTEIN CORRECTED 8.1 MG/DL (8.5-10.1); TOTAL PROTEIN 5.3 GM/DL (6.4-8.2)
[2017-10-21] MEDS ORDERED: POTASSIUM CHLORIDE 25 MEQ EFFERVESCENT TAB NG ONE (14:00)
[2017-10-21] MEDS ORDERED: VANCOMYCIN INJ 2,000 MG in SODIUM CHLORID 0.9% 500 ML INJ 500 ML IV ONE (14:00)
[2017-10-21] MEDS: POTASSIUM CHLOR 20 MEQ PREMIX 100 ML IV SCH ×2 (14:14→15:28)
[2017-10-21] MEDS: LACTATED RINGER'S 1000 ML INJ 1,000 ML IV SCH ×2 (14:15→20:08)
--- NOTE | 2017-10-21 16:53 | HHI.CCPN ---
Subjective Remarks/Hospital Course This is a 42-year-old AA male. Date of admission 10/19/2017. Past medical history includes depression, hypertension. Patient has no known history of diabetes mellitus but has multiple family members with this diagnosis. Over the past month, patient has been experiencing these sequelae of thirst, diminished appetite. Patient was in alf until recently and has not had his blood sugar checked according to his sister. He denies any sick contacts. Since being released from alf, patient has been relatively noncompliant with his home medications due to underlying nausea/vomiting and delirium. Patient was drinking copious amounts of fluids at home. Due to his underlying illness is's family convinced him to come to the hospital for further evaluation treatment today. Name Efraín, patient noted to have a blood sugar 1800. Acute kidney injury creatinine of around 3. Sodium 121. Multiple electrolyte and mellitus and elevated ammonia level. Patient originally presented with fever around 105 to his facility. Received 4 mg of cyproheptadine per ED physician first possible serotonin syndrome. He received ice to fluid/water and acetaminophen/NSAIDs and his blood sugars currently subsiding. Patient became more unresponsive in the ED intervention was intubated with central line placed by ED physician. 10/19:The patient went into V. tach at approximately 0720 am. ACLS protocol instituted. Insulin infusion discontinued. 12-lead EKG obtained, stat VBG obtained. 1 g calcium chloride given to stabilize membrane. The patient was defibrillated 1 prior to my arrival and the scene. The patient was given 50 mEq of potassium orally, as well as 20 meq.'s IV.ROSC returned at 0 750. Attempts made to contact family unsuccessful, palliative care consulted to define healthcare POA surrogacy. Repletion of electrolytes per ICU protocol , serial labs continues. Patient awakened post ROSC noted to have spontaneous eye opening movement of extremities 4 but not following commands. Arterial line placed, the patient continues on Levophed and phenylephrine infusion to maintain MAP. The patient was noted to have a significant respiratory acidosis , initial CO2 96, rate was increased at 6 AM subsequent CO2 67 with pH 6.97. Ventilatory rate increased, sodium bicarbonate 1 amp 4 bicarb level is 16.3 given. 10/20: The patient continues intermittently on a cooling blanket. EEG was performed which revealed moderate to severe encephalopathy. When the patient was off sedation spontaneous eye opening no tracking no movement of extremities. No further episodes of V. tach during the night. Potassium was aggressively repleted yesterday, nephrology was consulted regarding elevated creatinine in the setting of hypokalemia. Sodium bicarbonate infusion was instituted , now with resolution of metabolic acidosis .The patient's blood glucose continue to trend upward during the night the patient was placed on a non-DKA insulin infusion, currently at 4 units/hour. The patient continues to require vasopressors and currently on 3 to maintain map greater than 65. The patient is urinary output overnight for 12 hours was approximately 1300 cc. No significant elevation in temperature during the night recorded 100.0 10/21: electrolyte disturbances improving. afebrile. still encephalopathic and not arousing appropriately. initiated SBTs today but patient became severely tachypneic. Objective Vital Signs Date Time Temp Pulse Resp B/P (MAP) Pulse Ox O2 Delivery O2 Flow Rate FiO2 10/21/17 16:00 97 40 10/21/17 11:00 125 10/21/17 11:00 99.4 25 125/78 (94) 135/70 (91) 10/21/17 11:00 Mechanical Ventilator 10/19/17 01:42 15.00 Intake and Output 10/21/17 10/21/17 10/21/17 07:59 15:59 23:59 Intake Total 2290 ml 150 ml Output Total 1550 ml Balance 740 ml 150 ml Result Diagram: 10/21/17 0415 10/21/17 1100 Other Results Microbiology Date/Time Source Procedure Growth Status 10/19/17 13:00 Nasal Aspirate Influenza Types A,B Antigen (TAHMINA) - Final NEGATIVE FOR FLU A AND B ANTIGEN.... Complete Laboratory Tests Test 10/21/17 06:09 Blood Gas Puncture Site ART LINE Blood Gas Patient Temperature 98.6 Blood Gas HCO3 21 mmol/L (22-26) Blood Gas Base Excess -4.1 mmol/L (-2-2) Blood Gas Oxygen Saturation 94 % (90-100) Arterial Blood pH 7.34 (7.380-7.420) Arterial Blood Partial Pressure CO2 40 mmHg (38-42) Arterial Blood Partial Pressure O2 86 mmHg (61-120) Arterial Blood Oxygen Content 19.9 Vol % (12.0-20.0) Arterial Blood Carboxyhemoglobin 0.9 % (0-4) Arterial Blood Methemoglobin 1.7 % (0-2) Blood Gas Hemoglobin 15.1 G/DL (12.0-16.0) Oxygen Delivery Device VENTILATOR Blood Gas Ventilator Setting PRVC/AC Blood Gas Inspired Oxygen 40 % Imaging Last Impressions Chest X-Ray 10/19/17252 Signed Impressions: Service Date/Time: Thursday, October 19, 2017 02:56 - CONCLUSION: 1. Bilateral pulmonary infiltrates. Dennis Claire Jr., MD Renal Ultrasound 10/19/17 0000 Signed Impressions: Service Date/Time: Thursday, October 19, 2017 09:46 - CONCLUSION: Normal examination. Alexx Baig MD Last Impressions Chest X-Ray 10/19/17252 Signed Impressions: Service Date/Time: Thursday, October 19, 2017 02:56 - CONCLUSION: 1. Bilateral pulmonary infiltrates. Dennis Claire Jr., MD Objective Remarks GENERAL: 42-year-old AA male lying in bed, orotracheally intubated and sedated SKIN: Warm and dry. Multiple tattoos HEAD: Atraumatic. Normocephalic. EYES: Pupils equal and round about 2 mm bilaterally and reactive no scleral icterus. No injection or drainage. ENT: No nasal bleeding or discharge. Mucous membranes pink and moist. NECK: Trachea midline. No JVD. CARDIOVASCULAR: Tachycardic, RR. off vasopressors. RESPIRATORY: Diminished breath sounds. Symmetrical excursion. No wheezing appreciated. GASTROINTESTINAL: Abdomen soft, non-tender, nondistended. no guarding. MUSCULOSKELETAL: Extremities without significant pitting edema. No obvious deformities. NEUROLOGICAL: RASS -3. withdraw to pain. does not follow commands. Date of Insertion: October 19, 2017 A/P Problem List: (1) Hypokalemia ICD Code: E87.6 - Hypokalemia Status: Acute (2) Acute respiratory failure ICD Code: J96.00 - Acute respiratory failure, unspecified whether with hypoxia or hypercapnia (3) Lactic acidosis ICD Code: E87.2 - Acidosis Status: Acute (4) Hypermagnesemia ICD Code: E83.41 - Hypermagnesemia (5) Pyrexia ICD Code: R50.9 - Fever, unspecified Status: Acute (6) Hyponatremia ICD Code: E87.1 - Hypo-osmolality and hyponatremia Status: Acute (7) Leukocytosis ICD Code: D72.829 - Elevated white blood cell count, unspecified Status: Acute (8) Hypophosphatemia ICD Code: E83.39 - Other disorders of phosphorus metabolism Status: Acute (9) Ketoacidosis due to secondary diabetes ICD Code: E13.10 - Other specified diabetes mellitus with ketoacidosis without coma Status: Acute (10) Acute kidney injury ICD Code: N17.9 - Acute kidney failure, unspecified Status: Acute (11) Acute encephalopathy ICD Code: G93.40 - Encephalopathy, unspecified Status: Acute (12) BMI 37.0-37.9, adult ICD Code: Z68.37 - Body mass index (BMI) 37.0-37.9, adult Status: Acute Assessment and Plan Assessment: 42yM with severe life-threatening electrolyte abnormalities and acute encephalopathy. remains critically ill with hypoxic respiratory failure unable to wean from mechanical ventilation. continue supportive care. Will likely need MRI for further evaluation. Neuro/Psych: Acute toxic metabolic encephalopathy Depression/anxiety Holding Quetiapine 100 mg daily, divalproex 250 mg daily and buspirone 10 mg p.o. 3 times daily/home medication along with hydroxyzine 10 mg p.o. 3 times daily Patient did received cyproheptadine 4 mg 1 for possible serotonin syndrome by ED physician Versed/fentanyl drips for sedation/analgesia while intubated: d/c versed and start propofol. Goal of RASS of -2 start sedation vacations daily. MRI brain 10/19 EEG-moderate to severe encephalopathy Holding buspirone 10 mg daily, divalproex 250 mg daily/check level and ketamine 100 mg p.o. daily. CV: Severe sepsis Lactic acidosis History of essential hypertension d/c bicarb infusion. Follow-up EKG/troponin Holding home medication of amlodipine/benazepril 10/20 1 tablet daily and lisinopril 20 mg p.o. 2x daily in light of hypertension off vasopressors. Resp: Acute hypoxic and hypercarbic respiratory failure Mixed acidosis PRVC ventilation Ventilator bundle Albuterol/ipratropium aerosols every 4 hours with albuterol aerosols every 2 hours as needed dyspnea Spontaneous breathing trials daily: failed today for tachypnea and respiratory distress. GI: Possible upper GI bleed. Hypoalbuminemia NGT to LIWS Dietary consult initiate tube feed Pantoprazole for GI prophylaxis Docusate sodium/senna 1 tablet twice daily for bowel regimen Lactulose 30 cc twice daily. Ammonia level-59 continue to trend : Maintain Chiang catheter for accurate I's and O's Endo: Acute hyperglycemic state Ketoacidosis Insulin infusion 4 units/hr 10/19 Hemoglobin A1c-13 10/19 lipid panel-triglycerides 208 Beta hydroxybutyrate repeat pending. Renal: Acute kidney injury Monitor urine output Accurate I's and O's Heme: Leukocytosis Normocytic anemia Thrombocytopenia Monitor CBC daily. Follow trends 4t score: low probability for HIT. likely consumption. ID: Currently in vancomycin, cefepime and metronidazole day #3 d/c vancomycin. Blood cultures 2, sputum, urine, influenza all ordered: NGTD. Consider lumbar puncture, but thrombocytopenia prevents this currently. MRI brain. FEN: Hypokalemia Hypophosphatemia Hypermagnesemia Replace electrolytes as clinically indicated. Currently on hypotonic saline to correct sodium Receiving IV phosphorus and potassium Monitor serial electrolyte levels MSK: Elevated BMI of 37 PT evaluate and treat Access -Right femoral CVL day #3 placed in ED by ED physician Prophylaxis GI -pantoprazole -DVT -SCD/holding pharmacological prophylaxis with possible upper GI bleed Critical Care: my billing statement This patient remains critically ill with one or more organ systems which are or may become a threat to life. I have spent in excess of 42 minutes discontinuously in the care and management of this patient. This time is exclusive of procedures, and includes, but is not limited to, evaluation of the patient, review of the medical record, discussions with family, consultants, nursing staff, or respiratory therapy, and documentation in the medical record. Problem Qualifiers (1) Acute respiratory failure: Qualified Codes: J96.01 - Acute respiratory failure with hypoxia; J96.02 - Acute respiratory failure with hypercapnia (2) Pyrexia: Qualified Codes: R50.9 - Fever, unspecified González Enriquez MD October 21, 2017 16:53
[2017-10-21] MEDS: INSULIN REGULAR 100 UNITS/100 ML NS ALGORITHM 3 IV PRN ×2 (18:08)
[2017-10-22] VITALS (10 sets, daily range): BP systolic 106–147; BP diastolic 45–84; PULSE 109–120; RESP 27–29; TEMP 98.7–100.3; O2SAT 95–99
[2017-10-22] MEDS: LACTATED RINGER'S 1000 ML INJ 1,000 ML IV SCH ×2 (03:20→09:09)
[2017-10-22] MEDS: RESP: ALBUTEROL 2.5 MG/IPRATROPIUM 0.5 MG NEB (SCH) INH ×4 (03:55→20:06)
[2017-10-22] MEDS: CHLORHEXIDINE GLUCONATE 2 % 1 PACK (2 CLOTHS) TOP SCH (04:00)
[2017-10-22] MEDS: FREE WATER G-TUBE SCH ×6 (04:00→20:00)
[2017-10-22] MEDS: metroNIDAZOLE 500 MG INJ 100 ML IV SCH ×4 (04:54→21:27)
[2017-10-22] MEDS: CEFEPIME INJ 2,000 MG in SODIUM CHLORIDE 0.9% INJ 100 ML IV SCH ×2 (04:54→15:55)
[2017-10-22 05:00] LABS: AUTOMATED NEUTROPHIL # 16.7 TH/MM3 (1.8-7.7); BASOPHIL # 0.1 TH/MM3 (0-0.2); BASOPHIL % 0.6 % (0.0-2.0); EOSINOPHIL # 0.4 TH/MM3 (0-0.4); EOSINOPHIL % 1.8 % (0.0-4.0); HEMATOCRIT 25.1 % (39.0-51.0); HEMOGLOBIN 8.8 GM/DL (13.0-17.0); LYMPH % 7.1 % (9.0-44.0); LYMPHOCYTE # 1.4 TH/MM3 (1.0-4.8); MEAN CELL VOLUME 75.2 FL (80.0-100.0); MEAN CORPUSCULAR HEMOGLOBIN 26.3 PG (27.0-34.0); MEAN PLATELET VOLUME 10.1 FL (7.0-11.0); MONO % 6.6 % (0.0-8.0); MONOCYTE # 1.3 TH/MM3 (0-0.9); NEUT % 83.9 % (16.0-70.0); PLATELET COUNT 70 TH/MM3 (150-450); RED BLOOD COUNT 3.33 MIL/MM3 (4.50-5.90); RED CELL DISTRIBUTION WIDTH 15.8 % (11.6-17.2); WHITE BLOOD COUNT 19.9 TH/MM3 (4.0-11.0)
[2017-10-22 05:24] LABS: BICARBONATE 20.6 MEQ/L (21.0-32.0); CALCIUM 7.6 MG/DL (8.5-10.1); CREATININE 2.3 MG/DL (0.60-1.30)
[2017-10-22 05:40] LABS: BANDS 32 % (0-6); LYMPHOCYTES 6 % (9-44); METAMYELOCYTES 1 % (0-1); MONOCYTES 6 % (0-8); NEUTROPHIL # MANUAL DIFF 16.9 TH/MM3 (1.8-7.7); POLYS (SEG NEUTROPHILS) 52 % (16-70)
[2017-10-22 05:41] LABS: DOHLE BODIES PRESENT (NONE SEEN); TOXIC VACUOLATION PRESENT (NONE SEEN)
[2017-10-22] MEDS: ARTIFICIAL TEARS OPTH SOLN 15 ML BTL EACH EYE SCH ×3 (06:00→21:28)
[2017-10-22] MEDS: LACTULOSE SYRUP 20 GM/30 ML CUP PO SCH ×7 (09:00→20:47)
[2017-10-22] MEDS: DOCUSATE SODIUM 50 MG/SENNA 8.6 MG TAB PO SCH ×2 (09:14→20:47)
[2017-10-22] MEDS: CHLORHEXIDINE 0.12% (ORAL KIT) 15 ML CUP MT SCH ×2 (09:14→20:48)
[2017-10-22] MEDS: PANTOPRAZOLE SODIUM 40 MG VIAL IV PUSH SCH ×2 (09:15→20:47)
[2017-10-22] MEDS: SODIUM CHLORIDE 0.9% FLUSH 10 ML FLUSH IV FLUSH SCH ×2 (09:17→20:48)
--- NOTE | 2017-10-22 10:51 | HHI.HCPN ---
Reason for visit a. To assist with evaluation and management of symptoms including:pain, anxiety b. To assist medical decision maker(s) with: better understanding of current medical conditions; weighing benefits/burdens of medical treatment options; making medical treatment decisions. Subjective/Interval History Patient remains intubated and sedated. Pt on sbt. Patient currently off pressors. Patient's EEG show encephalopathy, and will get MRI today. Nephrology continue to monitor kidneys. Patient continue to have leukocytosis, and electrolyte disturbances. Patient is not alert, and is given sedation for anxiety, especially has he is getting ready for an MRI. Unable to elicit any history of pain. Family/friend interactions spoke with patient's Father, current health care proxy. Updated current clinical state of patient. Continue to endorse aggressive measures and full code. Advance Directives Durable Power of Harvest Manager: Copy in medical record (Designates Dimitrios Castelan, but document does not arsalan Mediccal or Health Care decision making.) Objective Vital Signs Date Time Temp Pulse Resp B/P (MAP) Pulse Ox O2 Delivery O2 Flow Rate FiO2 10/22/17 07:15 97 40 10/22/17 07:00 99.0 110 27 106/62 (77) 99 126/66 (86) 10/22/17 07:00 40 10/22/17 03:56 98 40 10/22/17 03:00 100.3 120 27 118/45 (69) 98 147/69 (95) 10/22/17 03:00 120 10/22/17 03:00 98 Mechanical Ventilator 40 10/22/17 03:00 40 10/21/17 23:00 114 10/21/17 23:00 40 10/21/17 23:00 99 Mechanical Ventilator 40 10/21/17 23:00 99.0 114 27 111/73 (86) 99 119/59 (79) 10/21/17 21:55 99 40 10/21/17 20:35 99 40 10/21/17 19:00 117 10/21/17 19:00 99 Mechanical Ventilator 40 10/21/17 19:00 98.7 117 27 121/82 (95) 99 134/68 (90) 10/21/17 19:00 40 10/21/17 16:00 97 40 10/21/17 15:00 98 Mechanical Ventilator 40 10/21/17 15:00 118 10/21/17 15:00 40 10/21/17 15:00 98.1 118 24 112/56 (74) 99 132/72 (92) 10/21/17 14:08 40 10/21/17 14:08 98 40 10/21/17 12:45 99 40 10/21/17 11:00 125 10/21/17 11:00 40 10/21/17 11:00 99.4 125 25 125/78 (94) 99 135/70 (91) 10/21/17 11:00 98 Mechanical Ventilator 40 Intake & Output 10/22/17 10/22/17 07:00 19:00 Intake Total 3120 ml 100 ml Output Total 1390 ml Balance 1730 ml 100 ml Intake IV Total 2170 ml 100 ml Tube Feeding 50 ml Other 900 ml Output Urine Total 1390 ml # Bowel Movements 2 Physical Exam CONSTITUTIONAL/GENERAL: This is an adequately nourished patient, intubated and sedated. TUBES/LINES/DRAINS: ET tube, central line, A line, guo SKIN: No jaundice, rashes, or lesions. Ecchymoses on upper extremities. No wounds seen anteriorly. Skin temperature appropriate. Not diaphoretic. HEAD: Atraumatic. Normocephalic. EYES: Pupils equal and round and reactive. No scleral icterus. No injection or drainage. Fundi not examined. ENT: Nose without bleeding or purulent drainage. Throat ETT NECK: Trachea midline. Supple, nontender. No palpable thyroid enlargement or nodularity. CARDIOVASCULAR: Regular rate and rhythm without murmurs, gallops, or rubs. No JVD. Peripheral pulses symmetric. RESPIRATORY/CHEST: Symmetric, unlabored respirations. No rales on ascultation. GASTROINTESTINAL: Abdomen soft, non-tender, nondistended. No hepato-splenomegaly , or palpable masses. No guarding. Bowel sounds present. GENITOURINARY: Without palpable bladder distension. Guo catheter in place. MUSCULOSKELETAL: Extremities without clubbing, cyanosis. He has 2+ edema of the extremity. LYMPHATICS: No palpable cervical or supraclavicular adenopathy. NEUROLOGICAL:unresponsive PSYCHIATRIC: unable to examine due to level of responsiveness. Diagnostic Tests Laboratory Laboratory Tests Test 10/19/17 12:00 10/19/17 12:02 10/19/17 12:50 10/19/17 12:53 Blood Gas Puncture Site ART LINE Blood Gas Patient Temperature 98.6 Blood Gas HCO3 13 mmol/L (22-26) Blood Gas Base Excess -14.0 mmol/L (-2-2) Blood Gas Oxygen Saturation 97 % (90-100) Arterial Blood pH 7.14 (7.380-7.420) Arterial Blood Partial Pressure CO2 40 mmHg (38-42) Arterial Blood Partial Pressure O2 412 mmHg (61-120) Arterial Blood Oxygen Content 15.4 Vol % (12.0-20.0) Arterial Blood Carboxyhemoglobin 0.5 % (0-4) Arterial Blood Methemoglobin 1.8 % (0-2) Blood Gas Hemoglobin 10.5 G/DL (12.0-16.0) Oxygen Delivery Device VENTILATOR Blood Gas Ventilator Setting [id number]/[id number] Blood Gas Inspired Oxygen 100 % Blood Urea Nitrogen 34 MG/DL (7-18) Creatinine 2.73 MG/DL (0.60-1.30) Random Glucose 366 MG/DL (74-106) Calcium Level 7.7 MG/DL (8.5-10.1) Phosphorus Level 1.8 MG/DL (2.5-4.9) Magnesium Level 2.8 MG/DL (1.5-2.5) Sodium Level 150 MEQ/L (136-145) Potassium Level 2.0 MEQ/L (3.5-5.1) Chloride Level 123 MEQ/L (98-107) Carbon Dioxide Level 13.7 MEQ/L (21.0-32.0) Anion Gap 13 MEQ/L (5-15) Estimat Glomerular Filtration Rate 31 ML/MIN (>89) Hemoglobin A1c 13.0 % (4.3-6.0) Lactic Acid Level 1.6 mmol/L (0.4-2.0) Triglycerides Level 208 MG/DL (42-150) Cholesterol Level 178 MG/DL (120-200) LDL Cholesterol 104 MG/DL (0-99) HDL Cholesterol 32.3 MG/DL (40.0-60.0) Cholesterol/HDL Ratio 5.51 RATIO Thyroid Stimulating Hormone 3rd Gen 0.606 uIU/ML (0.358-3.740) Valproic Acid (Depakene) Level 5 MCG/ML (50-100) B-Hydroxybutyrate 1.35 MMOL/L (0.00-0.39) Urine Ketones 10 mg/dL (NEG) Urine Random Potassium 11 MEQ/L Test 10/19/17 13:00 10/19/17 14:26 10/19/17 16:01 10/19/17 18:02 White Blood Count 20.5 TH/MM3 (4.0-11.0) Red Blood Count 4.12 MIL/MM3 (4.50-5.90) Hemoglobin 10.9 GM/DL (13.0-17.0) Hematocrit 31.8 % (39.0-51.0) Mean Corpuscular Volume 77.2 FL (80.0-100.0) Mean Corpuscular Hemoglobin 26.5 PG (27.0-34.0) Mean Corpuscular Hemoglobin Concent 34.3 % (32.0-36.0) Red Cell Distribution Width 14.7 % (11.6-17.2) Platelet Count 102 TH/MM3 (150-450) Mean Platelet Volume 9.3 FL (7.0-11.0) Random Cortisol 43.8 MCG/DL Blood Urea Nitrogen 36 MG/DL (7-18) 37 MG/DL (7-18) 41 MG/DL (7-18) Creatinine 2.84 MG/DL (0.60-1.30) 2.86 MG/DL (0.60-1.30) 2.95 MG/DL (0.60-1.30) Random Glucose 379 MG/DL (74-106) 437 MG/DL (74-106) 466 MG/DL (74-106) Total Protein 5.3 GM/DL (6.4-8.2) Calcium Level 7.2 MG/DL (8.5-10.1) 8.3 MG/DL (8.5-10.1) 7.9 MG/DL (8.5-10.1) Phosphorus Level 2.7 MG/DL (2.5-4.9) Magnesium Level 2.7 MG/DL (1.5-2.5) Sodium Level 150 MEQ/L (136-145) 148 MEQ/L (136-145) 147 MEQ/L (136-145) Potassium Level 4.6 MEQ/L (3.5-5.1) 6.0 MEQ/L (3.5-5.1) 5.9 MEQ/L (3.5-5.1) Chloride Level 119 MEQ/L (98-107) 122 MEQ/L (98-107) 119 MEQ/L (98-107) Carbon Dioxide Level 15.1 MEQ/L (21.0-32.0) 12.4 MEQ/L (21.0-32.0) 13.9 MEQ/L (21.0-32.0) Anion Gap 16 MEQ/L (5-15) 14 MEQ/L (5-15) 14 MEQ/L (5-15) Estimat Glomerular Filtration Rate 30 ML/MIN (>89) 30 ML/MIN (>89) 29 ML/MIN (>89) Protein Corrected Calcium 8.2 MG/DL (8.5-10.1) B-Hydroxybutyrate 2.14 MMOL/L (0.00-0.39) Test 10/19/17 18:45 10/19/17 19:54 10/19/17 21:38 10/19/17 21:40 Lactic Acid Level 2.1 mmol/L (0.4-2.0) Blood Gas Puncture Site ART LINE ART LINE Blood Gas Patient Temperature 98.6 98.6 Blood Gas HCO3 12 mmol/L (22-26) 15 mmol/L (22-26) Blood Gas Base Excess -14.4 mmol/L (-2-2) -10.5 mmol/L (-2-2) Blood Gas Oxygen Saturation 96 % (90-100) 96 % (90-100) Arterial Blood pH 7.19 (7.380-7.420) 7.28 (7.380-7.420) Arterial Blood Partial Pressure CO2 33 mmHg (38-42) 33 mmHg (38-42) Arterial Blood Partial Pressure O2 179 mmHg (61-120) 171 mmHg (61-120) Arterial Blood Oxygen Content 15.0 Vol % (12.0-20.0) 14.7 Vol % (12.0-20.0) Arterial Blood Carboxyhemoglobin 0.7 % (0-4) 0.9 % (0-4) Arterial Blood Methemoglobin 1.9 % (0-2) 2.0 % (0-2) Blood Gas Hemoglobin 10.8 G/DL (12.0-16.0) 10.6 G/DL (12.0-16.0) Oxygen Delivery Device VENTILATOR VENTILATOR Blood Gas Ventilator Setting PRVC/AC PRVC/AC Blood Gas Inspired Oxygen 50 % 40 % Blood Urea Nitrogen 43 MG/DL (7-18) Creatinine 2.98 MG/DL (0.60-1.30) Random Glucose 526 MG/DL (74-106) Calcium Level 7.5 MG/DL (8.5-10.1) Sodium Level 147 MEQ/L (136-145) Potassium Level 5.7 MEQ/L (3.5-5.1) Chloride Level 117 MEQ/L (98-107) Carbon Dioxide Level 15.2 MEQ/L (21.0-32.0) Anion Gap 15 MEQ/L (5-15) Estimat Glomerular Filtration Rate 28 ML/MIN (>89) Test 10/20/17 05:05 10/20/17 05:10 10/20/17 09:50 10/20/17 15:55 Blood Gas Puncture Site RT RADIAL Blood Gas Patient Temperature 98.6 Blood Gas HCO3 21 mmol/L (22-26) Blood Gas Base Excess -4.1 mmol/L (-2-2) Blood Gas Oxygen Saturation 96 % (90-100) Arterial Blood pH 7.35 (7.380-7.420) Arterial Blood Partial Pressure CO2 38 mmHg (38-42) Arterial Blood Partial Pressure O2 155 mmHg (61-120) Arterial Blood Oxygen Content 14.6 Vol % (12.0-20.0) Arterial Blood Carboxyhemoglobin 0.9 % (0-4) Arterial Blood Methemoglobin 2.0 % (0-2) Blood Gas Hemoglobin 10.6 G/DL (12.0-16.0) Oxygen Delivery Device VENTILATOR Blood Gas Ventilator Setting PRVC/AC Blood Gas Inspired Oxygen 40 % White Blood Count 17.1 TH/MM3 (4.0-11.0) Red Blood Count 3.91 MIL/MM3 (4.50-5.90) Hemoglobin 10.3 GM/DL (13.0-17.0) Hematocrit 29.6 % (39.0-51.0) Mean Corpuscular Volume 75.7 FL (80.0-100.0) Mean Corpuscular Hemoglobin 26.5 PG (27.0-34.0) Mean Corpuscular Hemoglobin Concent 35.0 % (32.0-36.0) Red Cell Distribution Width 14.6 % (11.6-17.2) Platelet Count 67 TH/MM3 (150-450) Mean Platelet Volume 9.9 FL (7.0-11.0) CBC Comment AUTO DIFF Differential Total Cells Counted 100 Neutrophils % (Manual) 45 % (16-70) Band Neutrophils % 41 % (0-6) Lymphocytes % 12 % (9-44) Neutrophils # (Manual) 15.0 TH/MM3 (1.8-7.7) Metamyelocytes 1 % (0-1) Myelocytes 1 % (0-0) Nucleated Red Blood Cells 2 /100 WBC (0-0) Differential Comment FINAL DIFF MANUAL Platelet Estimate LOW (NORMAL) Platelet Morphology Comment NORMAL (NORMAL) Basophilic Stippling MOD (NORMAL) Prothrombin Time 12.4 SEC (9.8-11.6) Prothromb Time International Ratio 1.2 RATIO Activated Partial Thromboplast Time 25.0 SEC (24.3-30.1) Blood Urea Nitrogen 47 MG/DL (7-18) 45 MG/DL (7-18) 53 MG/DL (7-18) Creatinine 3.16 MG/DL (0.60-1.30) 2.83 MG/DL (0.60-1.30) 2.70 MG/DL (0.60-1.30) Random Glucose 156 MG/DL (74-106) 109 MG/DL (74-106) 206 MG/DL (74-106) Total Protein 5.5 GM/DL (6.4-8.2) 5.3 GM/DL (6.4-8.2) 4.6 GM/DL (6.4-8.2) Albumin 2.6 GM/DL (3.4-5.0) Calcium Level 7.6 MG/DL (8.5-10.1) 7.3 MG/DL (8.5-10.1) 7.0 MG/DL (8.5-10.1) Phosphorus Level 2.2 MG/DL (2.5-4.9) Magnesium Level 2.4 MG/DL (1.5-2.5) Alkaline Phosphatase 112 U/L (45-117) Aspartate Amino Transf (AST/SGOT) 9475 U/L (15-37) Alanine Aminotransferase (ALT/SGPT) 2447 U/L (12-78) Total Bilirubin 0.7 MG/DL (0.2-1.0) Sodium Level 155 MEQ/L (136-145) 154 MEQ/L (136-145) 151 MEQ/L (136-145) Potassium Level 3.9 MEQ/L (3.5-5.1) 3.5 MEQ/L (3.5-5.1) 3.9 MEQ/L (3.5-5.1) Chloride Level 120 MEQ/L (98-107) 120 MEQ/L (98-107) 119 MEQ/L (98-107) Carbon Dioxide Level 24.4 MEQ/L (21.0-32.0) 25.7 MEQ/L (21.0-32.0) 20.6 MEQ/L (21.0-32.0) Anion Gap 11 MEQ/L (5-15) 8 MEQ/L (5-15) 11 MEQ/L (5-15) Estimat Glomerular Filtration Rate 27 ML/MIN (>89) 30 ML/MIN (>89) 32 ML/MIN (>89) Ammonia 59 MCMOL/L (11-32) Random Vancomycin Level 5.4 COMMENT Lactic Acid Level 2.1 mmol/L (0.4-2.0) Protein Corrected Calcium 8.3 MG/DL (8.5-10.1) 8.4 MG/DL (8.5-10.1) B-Hydroxybutyrate 3.33 MMOL/L (0.00-0.39) Test 10/20/17 18:30 10/20/17 21:06 10/21/17 00:15 10/21/17 02:15 Blood Urea Nitrogen 52 MG/DL (7-18) 52 MG/DL (7-18) 50 MG/DL (7-18) 48 MG/DL (7-18) Creatinine 2.80 MG/DL (0.60-1.30) 2.82 MG/DL (0.60-1.30) 2.64 MG/DL (0.60-1.30) 2.56 MG/DL (0.60-1.30) Random Glucose 198 MG/DL (74-106) 165 MG/DL (74-106) 132 MG/DL (74-106) 128 MG/DL (74-106) Total Protein 4.8 GM/DL (6.4-8.2) 5.2 GM/DL (6.4-8.2) 5.1 GM/DL (6.4-8.2) 5.1 GM/DL (6.4-8.2) Calcium Level 7.1 MG/DL (8.5-10.1) 7.3 MG/DL (8.5-10.1) 7.3 MG/DL (8.5-10.1) 7.3 MG/DL (8.5-10.1) Sodium Level 152 MEQ/L (136-145) 153 MEQ/L (136-145) 154 MEQ/L (136-145) 154 MEQ/L (136-145) Potassium Level 4.1 MEQ/L (3.5-5.1) 3.9 MEQ/L (3.5-5.1) 3.6 MEQ/L (3.5-5.1) 3.7 MEQ/L (3.5-5.1) Chloride Level 121 MEQ/L (98-107) 120 MEQ/L (98-107) 120 MEQ/L (98-107) 120 MEQ/L (98-107) Carbon Dioxide Level 22.4 MEQ/L (21.0-32.0) 23.8 MEQ/L (21.0-32.0) 23.8 MEQ/L (21.0-32.0) 24.2 MEQ/L (21.0-32.0) Anion Gap 9 MEQ/L (5-15) 9 MEQ/L (5-15) 10 MEQ/L (5-15) 10 MEQ/L (5-15) Estimat Glomerular Filtration Rate 31 ML/MIN (>89) 30 ML/MIN (>89) 33 ML/MIN (>89) 34 ML/MIN (>89) Protein Corrected Calcium 8.4 MG/DL (8.5-10.1) 8.3 MG/DL (8.5-10.1) 8.4 MG/DL (8.5-10.1) 8.4 MG/DL (8.5-10.1) Lactic Acid Level 2.0 mmol/L (0.4-2.0) Test 10/21/17 04:15 10/21/17 06:09 10/21/17 09:00 10/21/17 11:00 White Blood Count 20.9 TH/MM3 (4.0-11.0) Red Blood Count 3.71 MIL/MM3 (4.50-5.90) Hemoglobin 10.0 GM/DL (13.0-17.0) Hematocrit 27.7 % (39.0-51.0) Mean Corpuscular Volume 74.7 FL (80.0-100.0) Mean Corpuscular Hemoglobin 26.9 PG (27.0-34.0) Mean Corpuscular Hemoglobin Concent 36.0 % (32.0-36.0) Red Cell Distribution Width 15.0 % (11.6-17.2) Platelet Count 46 TH/MM3 (150-450) Mean Platelet Volume 9.6 FL (7.0-11.0) Neutrophils (%) (Auto) 84.3 % (16.0-70.0) Lymphocytes (%) (Auto) 10.7 % (9.0-44.0) Monocytes (%) (Auto) 4.1 % (0.0-8.0) Eosinophils (%) (Auto) 0.4 % (0.0-4.0) Basophils (%) (Auto) 0.5 % (0.0-2.0) Neutrophils # (Auto) 17.6 TH/MM3 (1.8-7.7) Lymphocytes # (Auto) 2.2 TH/MM3 (1.0-4.8) Monocytes # (Auto) 0.9 TH/MM3 (0-0.9) Eosinophils # (Auto) 0.1 TH/MM3 (0-0.4) Basophils # (Auto) 0.1 TH/MM3 (0-0.2) CBC Comment AUTO DIFF Differential Total Cells Counted 100 Neutrophils % (Manual) 61 % (16-70) Band Neutrophils % 30 % (0-6) Lymphocytes % 3 % (9-44) Monocytes % 4 % (0-8) Neutrophils # (Manual) 19.4 TH/MM3 (1.8-7.7) Metamyelocytes 1 % (0-1) Myelocytes 1 % (0-0) Differential Comment FINAL DIFF MANUAL Dohle Bodies PRESENT (NONE SEEN) Platelet Estimate LOW (NORMAL) Platelet Morphology Comment NORMAL (NORMAL) Strong-Greentop Bodies PRESENT (NONE SEEN) Red Cell Morphology Comment NORMAL (NORMAL) Blood Urea Nitrogen 48 MG/DL (7-18) 53 MG/DL (7-18) 52 MG/DL (7-18) Creatinine 2.52 MG/DL (0.60-1.30) 2.49 MG/DL (0.60-1.30) 2.32 MG/DL (0.60-1.30) Random Glucose 139 MG/DL (74-106) 100 MG/DL (74-106) 142 MG/DL (74-106) Total Protein 5.1 GM/DL (6.4-8.2) 5.0 GM/DL (6.4-8.2) 5.3 GM/DL (6.4-8.2) Albumin 2.2 GM/DL (3.4-5.0) Calcium Level 7.2 MG/DL (8.5-10.1) 7.2 MG/DL (8.5-10.1) 7.1 MG/DL (8.5-10.1) Phosphorus Level 3.2 MG/DL (2.5-4.9) Magnesium Level 2.3 MG/DL (1.5-2.5) Alkaline Phosphatase 102 U/L (45-117) Aspartate Amino Transf (AST/SGOT) 4049 U/L (15-37) Alanine Aminotransferase (ALT/SGPT) 1725 U/L (12-78) Total Bilirubin 1.0 MG/DL (0.2-1.0) Sodium Level 153 MEQ/L (136-145) 150 MEQ/L (136-145) 152 MEQ/L (136-145) Potassium Level 3.8 MEQ/L (3.5-5.1) 3.4 MEQ/L (3.5-5.1) 3.5 MEQ/L (3.5-5.1) Chloride Level 120 MEQ/L (98-107) 119 MEQ/L (98-107) 118 MEQ/L (98-107) Carbon Dioxide Level 21.7 MEQ/L (21.0-32.0) 22.6 MEQ/L (21.0-32.0) 21.1 MEQ/L (21.0-32.0) Anion Gap 11 MEQ/L (5-15) 8 MEQ/L (5-15) 13 MEQ/L (5-15) Estimat Glomerular Filtration Rate 35 ML/MIN (>89) 35 ML/MIN (>89) 38 ML/MIN (>89) Lactic Acid Level 1.6 mmol/L (0.4-2.0) Protein Corrected Calcium 8.3 MG/DL (8.5-10.1) 8.3 MG/DL (8.5-10.1) 8.1 MG/DL (8.5-10.1) Total Creatine Kinase 63818 U/L (39-308) Creatine Kinase MB 30.3 NG/ML (0.5-3.6) Creatine Kinase MB % 0.1 % (0.0-4.0) Random Vancomycin Level 17.5 COMMENT Blood Gas Puncture Site ART LINE Blood Gas Patient Temperature 98.6 Blood Gas HCO3 21 mmol/L (22-26) Blood Gas Base Excess -4.1 mmol/L (-2-2) Blood Gas Oxygen Saturation 94 % (90-100) Arterial Blood pH 7.34 (7.380-7.420) Arterial Blood Partial Pressure CO2 40 mmHg (38-42) Arterial Blood Partial Pressure O2 86 mmHg (61-120) Arterial Blood Oxygen Content 19.9 Vol % (12.0-20.0) Arterial Blood Carboxyhemoglobin 0.9 % (0-4) Arterial Blood Methemoglobin 1.7 % (0-2) Blood Gas Hemoglobin 15.1 G/DL (12.0-16.0) Oxygen Delivery Device VENTILATOR Blood Gas Ventilator Setting [facility]/ Blood Gas Inspired Oxygen 40 % Test 10/21/17 16:08 10/21/17 18:25 10/21/17 19:33 10/22/17 04:45 Total Creatine Kinase 65773 U/L (39-308) 53307 U/L (39-308) Creatine Kinase MB 22.8 NG/ML (0.5-3.6) 18.0 NG/ML (0.5-3.6) Creatine Kinase MB % 0.1 % (0.0-4.0) 0.1 % (0.0-4.0) Lactic Acid Level 1.2 mmol/L (0.4-2.0) Potassium Level 4.2 MEQ/L (3.5-5.1) 4.3 MEQ/L (3.5-5.1) White Blood Count 19.9 TH/MM3 (4.0-11.0) Red Blood Count 3.33 MIL/MM3 (4.50-5.90) Hemoglobin 8.8 GM/DL (13.0-17.0) Hematocrit 25.1 % (39.0-51.0) Mean Corpuscular Volume 75.2 FL (80.0-100.0) Mean Corpuscular Hemoglobin 26.3 PG (27.0-34.0) Mean Corpuscular Hemoglobin Concent 35.0 % (32.0-36.0) Red Cell Distribution Width 15.8 % (11.6-17.2) Platelet Count 70 TH/MM3 (150-450) Mean Platelet Volume 10.1 FL (7.0-11.0) Neutrophils (%) (Auto) 83.9 % (16.0-70.0) Lymphocytes (%) (Auto) 7.1 % (9.0-44.0) Monocytes (%) (Auto) 6.6 % (0.0-8.0) Eosinophils (%) (Auto) 1.8 % (0.0-4.0) Basophils (%) (Auto) 0.6 % (0.0-2.0) Neutrophils # (Auto) 16.7 TH/MM3 (1.8-7.7) Lymphocytes # (Auto) 1.4 TH/MM3 (1.0-4.8) Monocytes # (Auto) 1.3 TH/MM3 (0-0.9) Eosinophils # (Auto) 0.4 TH/MM3 (0-0.4) Basophils # (Auto) 0.1 TH/MM3 (0-0.2) CBC Comment AUTO DIFF Differential Total Cells Counted 100 Neutrophils % (Manual) 52 % (16-70) Band Neutrophils % 32 % (0-6) Lymphocytes % 6 % (9-44) Monocytes % 6 % (0-8) Eosinophils % 3 % (0-4) Neutrophils # (Manual) 16.9 TH/MM3 (1.8-7.7) Metamyelocytes 1 % (0-1) Differential Comment FINAL DIFF MANUAL Toxic Vacuolation PRESENT (NONE SEEN) Dohle Bodies PRESENT (NONE SEEN) Platelet Estimate LOW (NORMAL) Platelet Morphology Comment ENLARGED (NORMAL) Blood Urea Nitrogen 55 MG/DL (7-18) Creatinine 2.30 MG/DL (0.60-1.30) Random Glucose 150 MG/DL (74-106) Calcium Level 7.6 MG/DL (8.5-10.1) Sodium Level 152 MEQ/L (136-145) Chloride Level 120 MEQ/L (98-107) Carbon Dioxide Level 20.6 MEQ/L (21.0-32.0) Anion Gap 11 MEQ/L (5-15) Estimat Glomerular Filtration Rate 38 ML/MIN (>89) Result Diagram: 10/22/17 0445 10/22/17 0445 Microbiology Microbiology Date/Time Source Procedure Growth Status 10/19/17 13:00 Nasal Aspirate Influenza Types A,B Antigen (TAHMINA) - Final NEGATIVE FOR FLU A AND B ANTIGEN.... Complete Imaging Last Impressions Chest X-Ray 10/21/17 0600 Signed Impressions: Service Date/Time: Saturday, October 21, 2017 05:10 - CONCLUSION: 1. Slight worsening of patchy air space disease since October 19. Support apparatus unchanged. Dimitrios Urbina MD Renal Ultrasound 10/19/17 0000 Signed Impressions: Service Date/Time: Thursday, October 19, 2017 09:46 - CONCLUSION: Normal examination. Alexx Baig MD Procedures Intubation 10/18. Central line placed 10/18. A line placement 10/19. Assessment and Plan Disease Oriented Problem List: (1) Sepsis (2) Arrhythmia Comment: V-Tach then cardiac arrest. (3) Lactic acidosis (4) Acute kidney injury (5) Acute encephalopathy (6) Acute respiratory failure Comment: bilateral pulmonary infiltrates (7) Hyperglycemia Symptom Scale: (1) Pain 0-10 Scale: Unable to quantify (2) Anxiety 0-10 Scale: Unable to quantify Pertinent Non-Medical Issues Psychosocial:recently in group home. He served in the [employer]. On disability Spiritual: unknown Legal: POA did not give power for health care decision making to pt's cousin. His children from which he has been estranged from is currently not reasonably reachable. Will obtain accurints to find him. His mother has past away. Pt's Father is next in line to serve as Health Care proxy. Ethical issues impacting care:none Important Contacts Geovani Palomo Sr is the health care proxy per [place] [employer]. [phone] His adult Children Christofer Ryan and Arin Ryan has been estranged from patient and there are no known phone numbers. Dimitrios Castelan(cousin) [phone] and [phone] POA but only financial. Heather (aunt) [phone] Adali Castelan (cousin) [phone] Denisedimple Gould (significant other).[phone] Prognosis 42 year old male with came in with sepsis- with respiratory failure, hyperglycemia with dka, hypokalemia. On 10/19 coded V-tach . Possibility of anoxic encephalopathy. Prognosis is guarded and critical, at risk for further cardiac events, and sudden decline. Code Status: Full Code Plan ==Code= full. == capacity to make medical decision- not at this current time. Risk of anoxia causing significant encephalopathy that may not be reversible. High risk of not being able to regain capacity. == Health Care decision maker: Patient has a Durable Power of Harvest Manager form completed but does not arsalan health care decision making. As stated in the document "THIS DOCUMENT DOES NOT AUTHORIZE ANYONE TO MAKE MEDICAL AND OTHER HEALTH-CARE DECISIONS FOR YOU' Therefore under [place] Statutes: Health Care Decision making will fall first to spouse, then adult children, then Parents. Per family, he is not and he has children (are adults but are estranged and not easily reachable, no known phone numbers) Patient' mother has . Pending case management to try to find patient's adult children via acurrints: Christofer Ryan(son) Arin Toribio (daughter) possibly in [place] or [place] (Children has been estranged from father for many years and not reasonably reachable). Until Pt's Children is found: Patient's Father: Geovani Palomo will serve as the health care proxy per [place] Statutes. == Symptoms- Pain- underwent cpr, intubated. Currently on Fentanyl. Has Versed for comfort. Anxiety- associated with pt's critical condition, encephalopathy and decline. Versed and fentanyl protocol in place. Restraints are placed. ==Goals of Treatment : I spoke with patient's father and pt's significant other Denise. Reviewed course of hospitalization, and resuscitation this morning. Spoke to him about code status/ cpr/ etc. Spoke about possibility of anoxic encephalopathy. We spoke about advance directives, code status (advance care planing 20 min). We talked about prognosis, and my worry, that he is at risk for another cardiac event, sudden decline and despite all medical measures. I spoke at length in regards of chest compression, shock, and acls if done repeatedly, may just be causing more trauma, and prolonging his rather than saving it. I told them I do worry given how critical he, we cannot "fix" this and he may not rebound back to his previous level of function. If he does have anoxia from the code this morning, he may have general debility, in which he will rely on the artificial nutrition and ventilation in a prolong time. Today I gave clinical updates and spoke on those issues again. Goals of treatment remains aggressive. == Palliative Care will continue to follow, make recommendations for symptoms, review goals of care. Attestation To help prompt me to consider important information that might be impacting today's encounter and assessment, information from prior notes written by myself or my colleagues may have been "brought forward" into today's note. My signature on this note, however, is an attestation that I personally performed the exam, history, and/or decision-making noted today, and, unless otherwise indicated, the interactions with patient, family, and staff as well as the review of records all occurred today. I also attest that the listed assessment and stated plan reflect my best clinical judgment today based on the combination of historical information, prior notes, and today's exam/ interactions. When time spent is documented, it refers only to time spent today by the signer, or if indicated, combined time spent today by collaborating physician/nurse practitioner. Paresh Khan MD October 22, 2017 10:50
--- NOTE | 2017-10-22 11:36 | HHI.HCPN ---
[employer] results obtained: No contact information available for son Christofer Palomo although list populates contact information for a Heidi Jimenez with possible relation to Christofer. * [phone]-- left message requesting call back * [phone]-- left message requesting call back Unable to identify Christofer Palomo, Heidi Jimenez or Erica Palomo on social media or google searches without additional information. [employer] brings up no information on daughter Erica Palomo. Requested return contact from Christofer or Erica Palomo from above numbers. If unable to locate children, or children do not wish to participate in medical decision making, health care proxy would fall to patient's father whom is readily available and actively involved at this time. Rosina Claire, [facility] RIBBER October 22, 2017 11:36
[2017-10-22] MEDS ORDERED: CHLOROTHIAZIDE SOD 500 MG VIAL IV ONE (12:15)
[2017-10-22] MEDS: fentaNYL DRIP 250 ML IV PRN (12:41)
[2017-10-22] MEDS: SODIUM CHLORIDE 23.4% INJ 38.5 MEQ in WATER STERILE FOR INJ 1,000 ML IV SCH (12:44)
--- NOTE | 2017-10-22 13:07 | HHI.CCPN ---
Subjective Remarks/Hospital Course This is a 42-year-old AA male. Date of admission 10/19/2017. Past medical history includes depression, hypertension. Patient has no known history of diabetes mellitus but has multiple family members with this diagnosis. Over the past month, patient has been experiencing these sequelae of thirst, diminished appetite. Patient was in [facility] until recently and has not had his blood sugar checked according to his sister. He denies any sick contacts. Since being released from [facility], patient has been relatively noncompliant with his home medications due to underlying nausea/vomiting and delirium. Patient was drinking copious amounts of fluids at home. Due to his underlying illness is's family convinced him to come to the hospital for further evaluation treatment today. Name Efraín, patient noted to have a blood sugar 1800. Acute kidney injury creatinine of around 3. Sodium 121. Multiple electrolyte and mellitus and elevated ammonia level. Patient originally presented with fever around 105 to his facility. Received 4 mg of cyproheptadine per ED physician first possible serotonin syndrome. He received ice to fluid/water and acetaminophen/NSAIDs and his blood sugars currently subsiding. Patient became more unresponsive in the ED intervention was intubated with central line placed by ED physician. 10/19:The patient went into V. tach at approximately 0720 am. ACLS protocol instituted. Insulin infusion discontinued. 12-lead EKG obtained, stat VBG obtained. 1 g calcium chloride given to stabilize membrane. The patient was defibrillated 1 prior to my arrival and the scene. The patient was given 50 mEq of potassium orally, as well as 20 meq.'s IV.ROSC returned at 0 750. Attempts made to contact family unsuccessful, palliative care consulted to define healthcare POA surrogacy. Repletion of electrolytes per ICU protocol , serial labs continues. Patient awakened post ROSC noted to have spontaneous eye opening movement of extremities 4 but not following commands. Arterial line placed, the patient continues on Levophed and phenylephrine infusion to maintain MAP. The patient was noted to have a significant respiratory acidosis , initial CO2 96, rate was increased at 6 AM subsequent CO2 67 with pH 6.97. Ventilatory rate increased, sodium bicarbonate 1 amp 4 bicarb level is 16.3 given. 10/20: The patient continues intermittently on a cooling blanket. EEG was performed which revealed moderate to severe encephalopathy. When the patient was off sedation spontaneous eye opening no tracking no movement of extremities. No further episodes of V. tach during the night. Potassium was aggressively repleted yesterday, nephrology was consulted regarding elevated creatinine in the setting of hypokalemia. Sodium bicarbonate infusion was instituted , now with resolution of metabolic acidosis .The patient's blood glucose continue to trend upward during the night the patient was placed on a non-DKA insulin infusion, currently at 4 units/hour. The patient continues to require vasopressors and currently on 3 to maintain map greater than 65. The patient is urinary output overnight for 12 hours was approximately 1300 cc. No significant elevation in temperature during the night recorded 100.0 10/21: electrolyte disturbances improving. afebrile. still encephalopathic and not arousing appropriately. initiated SBTs today but patient became severely tachypneic. 10/22: encephalopathy persists. platelet count improving, but too low for LP. electrolyte abn persists, but continue to slowly improve. Objective Vital Signs Date Time Temp Pulse Resp B/P (MAP) Pulse Ox O2 Delivery O2 Flow Rate FiO2 10/22/17 11:00 98 Mechanical Ventilator 40 10/22/17 11:00 99.1 120 27 111/80 (90) 126/69 (88) 10/19/17 01:42 15.00 Intake and Output 10/22/17 10/22/17 10/23/17 08:00 16:00 00:00 Intake Total 3020 ml 100 ml Output Total 1390 ml Balance 1630 ml 100 ml Result Diagram: 10/22/17 0445 10/22/17 0445 Other Results Microbiology Date/Time Source Procedure Growth Status 10/19/17 13:00 Nasal Aspirate Influenza Types A,B Antigen (TAHMINA) - Final NEGATIVE FOR FLU A AND B ANTIGEN.... Complete Imaging Last Impressions Chest X-Ray 10/19/17252 Signed Impressions: Service Date/Time: Thursday, October 19, 2017 02:56 - CONCLUSION: 1. Bilateral pulmonary infiltrates. Dennis Claire Jr., MD Renal Ultrasound 10/19/17 0000 Signed Impressions: Service Date/Time: Thursday, October 19, 2017 09:46 - CONCLUSION: Normal examination. Alexx Baig MD Last Impressions Chest X-Ray 10/19/17252 Signed Impressions: Service Date/Time: Thursday, October 19, 2017 02:56 - CONCLUSION: 1. Bilateral pulmonary infiltrates. Dennis Claire Jr., MD Objective Remarks GENERAL: 42-year-old AA male lying in bed, orotracheally intubated and sedated SKIN: Warm and dry. Multiple tattoos HEAD: Atraumatic. Normocephalic. EYES: Pupils equal and round about 2 mm bilaterally and reactive no scleral icterus. No injection or drainage. ENT: No nasal bleeding or discharge. Mucous membranes pink and moist. NECK: Trachea midline. No JVD. CARDIOVASCULAR: Tachycardic, RR. off vasopressors. RESPIRATORY: Diminished breath sounds. Symmetrical excursion. No wheezing appreciated. GASTROINTESTINAL: Abdomen soft, non-tender, nondistended. no guarding. MUSCULOSKELETAL: Extremities without significant pitting edema. No obvious deformities. NEUROLOGICAL: RASS -3. withdraw to pain. does not follow commands. Date of Insertion: October 19, 2017 A/P Problem List: (1) Hypokalemia ICD Code: E87.6 - Hypokalemia Status: Acute (2) Acute respiratory failure ICD Code: J96.00 - Acute respiratory failure, unspecified whether with hypoxia or hypercapnia (3) Lactic acidosis ICD Code: E87.2 - Acidosis Status: Acute (4) Hypermagnesemia ICD Code: E83.41 - Hypermagnesemia (5) Pyrexia ICD Code: R50.9 - Fever, unspecified Status: Acute (6) Hyponatremia ICD Code: E87.1 - Hypo-osmolality and hyponatremia Status: Acute (7) Leukocytosis ICD Code: D72.829 - Elevated white blood cell count, unspecified Status: Acute (8) Hypophosphatemia ICD Code: E83.39 - Other disorders of phosphorus metabolism Status: Acute (9) Ketoacidosis due to secondary diabetes ICD Code: E13.10 - Other specified diabetes mellitus with ketoacidosis without coma Status: Acute (10) Acute kidney injury ICD Code: N17.9 - Acute kidney failure, unspecified Status: Acute (11) Acute encephalopathy ICD Code: G93.40 - Encephalopathy, unspecified Status: Acute (12) BMI 37.0-37.9, adult ICD Code: Z68.37 - Body mass index (BMI) 37.0-37.9, adult Status: Acute Assessment and Plan Assessment: 42yM with severe life-threatening electrolyte abnormalities and acute encephalopathy. remains critically ill with hypoxic respiratory failure unable to wean from mechanical ventilation. continue supportive care. Unable to obtain MRI secondary to metal in chest. if plt improve, will need LP. hyperthermia persists requiring continuous cooling blanket. will ask neurology and ID to get involved. remains critically ill with no meaningful improvements. if we withdraw support, he would . Neuro/Psych: Acute toxic metabolic encephalopathy Depression/anxiety Holding Quetiapine 100 mg daily, divalproex 250 mg daily and buspirone 10 mg p.o. 3 times daily/home medication along with hydroxyzine 10 mg p.o. 3 times daily Patient did received cyproheptadine 4 mg 1 for possible serotonin syndrome by ED physician Versed/fentanyl drips for sedation/analgesia while intubated: d/c versed and start propofol. Goal of RASS of -2 sedation vacations daily. MRI brain: unable to do due to metal in chest. 10/19 EEG-moderate to severe encephalopathy Holding buspirone 10 mg daily, divalproex 250 mg daily/check level and ketamine 100 mg p.o. daily. CV: Severe sepsis Lactic acidosis History of essential hypertension Follow-up EKG/troponin Holding home medication of amlodipine/benazepril 10/20 1 tablet daily and lisinopril 20 mg p.o. 2x daily in light of hypertension off vasopressors. Resp: Acute hypoxic and hypercarbic respiratory failure Mixed acidosis- resolving. PRVC ventilation Ventilator bundle Albuterol/ipratropium aerosols every 4 hours with albuterol aerosols every 2 hours as needed dyspnea Spontaneous breathing trials daily: failed today for tachypnea and respiratory distress. GI: Possible upper GI bleed. Hypoalbuminemia Dietary consult and tube feed Pantoprazole for GI prophylaxis Docusate sodium/senna 1 tablet twice daily for bowel regimen Lactulose 30 cc twice daily. Ammonia level elevated. : Maintain Chiang catheter for accurate I's and O's Endo: Acute hyperglycemic state Ketoacidosis Insulin infusion 10/19 Hemoglobin A1c-13 10/19 lipid panel-triglycerides 208 Beta hydroxybutyrate repeat pending. Renal: Acute kidney injury Monitor urine output Accurate I's and O's Heme: Leukocytosis Normocytic anemia Thrombocytopenia Monitor CBC daily. Follow trends 4t score: low probability for HIT. likely consumption. slightly improved ID: Currently in cefepime and metronidazole day #4 Blood cultures 2, sputum, urine, influenza all ordered: NGTD. Consider lumbar puncture, but thrombocytopenia prevents this currently. MRI brain: unable to do. will consult ID for assistance in etiology of febrile illness. send procalcitonin. FEN: Hypokalemia Hypophosphatemia Hypermagnesemia Replace electrolytes as clinically indicated. Currently on hypotonic saline to correct sodium Receiving IV phosphorus and potassium Monitor serial electrolyte levels MSK: Elevated BMI of 37 PT evaluate and treat Access -Right femoral CVL day #4 placed in ED by ED physician Prophylaxis GI -pantoprazole -DVT -SCD/holding pharmacological prophylaxis with possible upper GI bleed Critical Care: my billing statement This patient remains critically ill with one or more organ systems which are or may become a threat to life. I have spent in excess of 33 minutes discontinuously in the care and management of this patient. This time is exclusive of procedures, and includes, but is not limited to, evaluation of the patient, review of the medical record, discussions with family, consultants, nursing staff, or respiratory therapy, and documentation in the medical record. Problem Qualifiers (1) Acute respiratory failure: Qualified Codes: J96.01 - Acute respiratory failure with hypoxia; J96.02 - Acute respiratory failure with hypercapnia (2) Pyrexia: Qualified Codes: R50.9 - Fever, unspecified González Enriquez MD October 22, 2017 13:07
--- NOTE | 2017-10-22 13:23 | HHI.NPPN ---
Subjective General Problems: Edema Renal Failure: Acute Interval History Remains intubated, unresponsive on the vent. Renal function is improving. Febrile and tachy today. ([place] Davalos) Review of Systems General General Remarks unable to obtain ([place] Davalos) Objective Data Data 10/22/17 10/23/17 18:59 06:59 Intake Total 100 ml Balance 100 ml Intake IV Total 100 ml Vital Signs Date Time Temp Pulse Resp B/P (MAP) Pulse Ox O2 Delivery O2 Flow Rate FiO2 10/22/17 11:00 98 Mechanical Ventilator 40 10/22/17 11:00 99.1 120 27 111/80 (90) 98 126/69 (88) 10/22/17 11:00 40 10/22/17 07:15 97 40 10/22/17 07:00 99 Mechanical Ventilator 40 10/22/17 07:00 99.0 110 27 106/62 (77) 99 126/66 (86) 10/22/17 07:00 40 10/22/17 03:56 98 40 10/22/17 03:00 100.3 120 27 118/45 (69) 98 147/69 (95) 10/22/17 03:00 120 10/22/17 03:00 98 Mechanical Ventilator 40 10/22/17 03:00 40 10/21/17 23:00 114 10/21/17 23:00 40 10/21/17 23:00 99 Mechanical Ventilator 40 10/21/17 23:00 99.0 114 27 111/73 (86) 99 119/59 (79) 10/21/17 21:55 99 40 10/21/17 20:35 99 40 10/21/17 19:00 117 10/21/17 19:00 99 Mechanical Ventilator 40 10/21/17 19:00 98.7 117 27 121/82 (95) 99 134/68 (90) 10/21/17 19:00 40 10/21/17 16:00 97 40 10/21/17 15:00 98 Mechanical Ventilator 40 10/21/17 15:00 118 10/21/17 15:00 40 10/21/17 15:00 98.1 118 24 112/56 (74) 99 132/72 (92) 10/21/17 14:08 40 10/21/17 14:08 98 40 ([place] Davalos) -: 10/22/17 0445 10/22/17 0445 Imaging Last Impressions Chest X-Ray 10/21/17 0600 Signed Impressions: Service Date/Time: Saturday, October 21, 2017 05:10 - CONCLUSION: 1. Slight worsening of patchy air space disease since October 19. Support apparatus unchanged. Dimitrios Urbina MD Renal Ultrasound 10/19/17 0000 Signed Impressions: Service Date/Time: Thursday, October 19, 2017 09:46 - CONCLUSION: Normal examination. Alexx Baig MD Drip Comment fentanyl, insulin ([place] DavalosP) Physical Exam General Appearance: Well Developed, No Acute Distress, Comfortable Appearance Remarks intubated, unresponsive on the vent ([place] Davalos [address] [employer]) Neck Neck Exam: Neck Supple ([place] Davalos [address] [employer]) Pulmonary Resp Exam: Breath Sounds Equal, No Distress, Diminished Breath Sounds Resp Remarks vented ([place] [address] [employer]) Cardiology CV Exam: Regular, Tachycardia ([place] [address] [employer]) Gastrointestinal/Abdomen GI Exam: Soft, Non-Tender, Bowel Sounds Present ([place] Davalos [address] [employer]) Musculoskeletal MS Exam: Joints Intact, Normal Tone, Unable to Ambulate ([place]al[place] [address] [employer]) Integumentary Skin Exam: Clear, Warm, Dry, Intact ([place] Davalos [address]. RO[address] CONSULTANT) Extremeties Extremities Exam: Pedal Pulses Palpable, Trace Edema ([place]al[place] [address] [employer]) Neurologic Neuro Exam: Unresponsive, Sedated ([place] DavalosP) Assessment/Plan Assessment Summary: CADY/Acute Renal Failure Electrolyte Assessment: Hypernatremia Problem List: (1) Acute kidney injury ICD Codes: N17.9 - Acute kidney failure, unspecified Status: Acute Plan: No baseline labs available for comparison May have initially had prerenal azotemia due to dehydration (secondary to hyperglycemia/DKA), but most likely has progressed to ATN, especially s/p cardiac arrest elevated CPK may also have rhabdomyolysis s/p cardiac arrest with chest compressions. Renal function has improved He is non oliguric with guo Has edema, give a dose of Diuril and monitor Avoid nephrotoxic agents Off pressors Repeat labs in AM (2) Hyperglycemia ICD Codes: R73.9 - Hyperglycemia, unspecified Plan: resolving DKA On insulin gtt, continue per protocol. (3) Hypokalemia ICD Codes: E87.6 - Hypokalemia Status: Acute Plan: Improved, continue to replace as needed follow labs (4) Hypernatremia ICD Codes: E87.0 - Hyperosmolality and hypernatremia Plan: Free water via NG/OG start /4 NS at 30 cc/hr Use thiazide diuretics Follow BMP ([place] Davalos) Problem List: (1) Acute kidney injury ICD Codes: N17.9 - Acute kidney failure, unspecified Status: Acute Plan: No baseline labs available for comparison May have initially had prerenal azotemia due to dehydration (secondary to hyperglycemia/DKA), but most likely has progressed to ATN, especially s/p cardiac arrest elevated CPK may also have rhabdomyolysis s/p cardiac arrest with chest compressions. Renal function has improved He is non oliguric with guo Has edema, give a dose of Diuril and monitor Avoid nephrotoxic agents Off pressors Repeat labs in AM (2) Hyperglycemia ICD Codes: R73.9 - Hyperglycemia, unspecified Plan: resolving DKA On insulin gtt, continue per protocol. (3) Hypokalemia ICD Codes: E87.6 - Hypokalemia Status: Acute Plan: Improved, continue to replace as needed follow labs (4) Hypernatremia ICD Codes: E87.0 - Hyperosmolality and hypernatremia Plan: Free water via NG/OG start 06/07 NS at 30 cc/hr Use thiazide diuretics Follow BMP Plan patient was seen and examined. Agree with above assessment and plan. (Shad Schroeder MD) [place] Davalos October 22, 2017 13:23 Shad Schroeder MD October 22, 2017 15:26
[2017-10-22 14:29] LABS: ALBUMIN 1.9 GM/DL (3.4-5.0); BICARBONATE 20.4 MEQ/L (21.0-32.0); BLOOD UREA NITROGEN 57 MG/DL (7-18); CALCIUM 7.8 MG/DL (8.5-10.1); CHLORIDE 120 MEQ/L (98-107); CREATININE 2.39 MG/DL (0.60-1.30); GLUCOSE,RANDOM 152 MG/DL (74-106); MAGNESIUM 2.4 MG/DL (1.5-2.5); SODIUM (NA) 151 MEQ/L (136-145)
[2017-10-22 14:54] LABS: ALKALINE PHOSPHATASE 150 U/L (45-117); AST (GOT) 1618 U/L (15-37); PHOSPHORUS 2.4 MG/DL (2.5-4.9); TOTAL PROTEIN 5.1 GM/DL (6.4-8.2)
[2017-10-22 15:00] LABS: ALT (GPT) 1266 U/L (12-78)
--- NOTE | 2017-10-22 15:48 | PD.CONS ---
History of Present Illness Service Infectious disease Consult Requested By Dr. Claire Reason for Consult Evaluate patient with persistent fevers [facility] Diagnoses: History of Present Illness Patient seen and examined. Records reviewed. Patient is a 42-year-old male, brought into the hospital for evaluation of multiple symptoms. He apparently has been having problem with poor p.o. intake , and thirst and increasing fluid intake. There is also mention that he has had problem with nausea and vomiting and some confusion. The symptoms have been going on for about a month. Was brought into the emergency room, and he was found to have a blood sugar of 1800, creatinine was up to 3, sodium 21, and he has multiple abnormal electrolytes. He also had acidosis, and high fevers. His white count was elevated. In the ED he became more unresponsive, and he ended up getting intubated. He was initially on pressors. He was also found to have a very elevated CPK. His electrolytes stabilized, and his acidosis improved. Creatinine improved, and he has improvement in his urine output. He had 2 blood cultures done and those are negative. He was started on empiric antibiotics for possible aspiration. Initial urinalysis was unremarkable. Patient remains on the vent. His mental status still has not improved. Neurology has been consulted. Patient's temperatures seem to have improved. His chest x-ray showing bilateral pulmonary infiltrates and some nodular infiltrates. He has been getting vancomycin, cefepime, and Flagyl. His CPKs are still elevated, and his LFTs were also elevated. Patient also during his hospitalization had episode of V. tach and was resuscitated successfully. Infectious disease consultation has been requested to evaluate patient with high fevers. Review of Systems ROS Limitations: Clinical Condition, Intubated, Altered Mental Status Past Family Social History Allergies: Coded Allergies: No Known Allergies (Unverified Allergy, Unknown, 10/18/17) Past Medical History Depression/anxiety Hypertension NSAID use Past Surgical History Not known Active Ordered Medications Current Medications Medications (Trade) Dose Ordered Sig/Jacky Route Start Time Stop Time Status Last Admin (NS Flush) 2 ml UNSCH PRN IV FLUSH 10/19/17 02:30 (NS Flush) 2 ml BID IV FLUSH 10/19/17 09:00 10/22/17 09:17 (Morphine Inj) 2 mg Q2H PRN IV PUSH 10/19/17 02:30 (Duoneb Neb) 1 ampule Q6HR NEB INH 10/19/17 04:00 10/22/17 09:58 (Albuterol Neb) 2.5 mg Q2HR NEB PRN INH 10/19/17 02:30 ([facility] [place] Nursing Information) 1 Q361D XX 10/19/17 02:30 10/19/17 02:30 (Chlorhexidine 2% Cloth) 3 pack Taper DAILY@04 TOP 10/19/17 04:00 10/15/18 03:59 10/22/17 04:00 (Chlorhexidine 2% Cloth) 3 pack UNSCH PRN TOP 10/19/17 02:30 (Candace-Colace) 1 tab BID PO 10/19/17 09:00 10/22/17 09:14 (Milk Of Magnesia Liq) 30 ml Q12H PRN PO 10/19/17 02:30 (Senokot) 17.2 mg Q12H PRN PO 10/19/17 02:30 (Dulcolax Supp) 10 mg DAILY PRN RECTAL 10/19/17 02:30 (Lactulose Liq) 30 ml DAILY PRN PO 10/19/17 02:30 (Zofran Odt) 4 mg Q6H PRN PO 10/19/17 02:30 (Protonix Inj) 40 mg BID IV PUSH 10/19/17 09:00 10/22/17 09:15 (Tears Naturale Opth Soln) 1 drop Q8HR EACH EYE 10/19/17 06:00 10/22/17 14:49 (Peridex 0.12% Liq) 15 ml BID@08,20 MT 10/19/17 08:00 10/22/17 09:14 Propofol 100 ml @ 3.24 mls/hr TITRATE PRN IV 10/19/17 03:00 Norepinephrine Bitartrate 4 mg/ Sodium Chloride 250 ml @ 7.5 mls/hr TITRATE PRN IV 10/19/17 03:30 10/20/17 06:30 Acetaminophen 100 ml @ 400 mls/hr Q8H PRN IV 10/19/17 03:30 Cefepime HCl 2000 mg/Sodium Chloride 100 ml @ 200 mls/hr Q12H IV 10/19/17 04:00 10/25/17 05:00 10/22/17 04:54 Metronidazole 100 ml @ 100 mls/hr Q6H IV 10/19/17 04:00 10/22/17 09:16 (Lactulose Liq) 30 ml BID PO 10/19/17 09:00 10/21/17 09:45 (Glucagon Inj) 1 mg UNSCH PRN OTHER 10/19/17 04:15 (Brethine Inj) 1 mg UNSCH PRN SQ 10/19/17 07:45 Fentanyl Citrate 250 ml @ 5 mls/hr TITRATE PRN IV 10/19/17 08:15 10/22/17 12:41 (D50w (Vial) Inj) 50 ml UNSCH PRN IV PUSH 10/19/17 23:30 Insulin Human Regular 100 units/ Sodium Chloride 100 ml @ 2 mls/hr TITRATE PRN IV 10/20/17 01:45 10/21/17 18:08 (Free Water) 300 ml Q4HR G-TUBE 10/21/17 20:00 10/22/17 12:00 (Lactulose Liq) 30 ml QID PO 10/21/17 18:00 10/22/17 14:49 Sodium Chloride 38.5 meq/Sterile Water 1,009.625 ml @ 30 mls/hr Q24H IV 10/22/17 14:00 10/22/17 12:44 Family History Not known Social History No recent tobacco/alcohol use while in retirement. No info on illicit drug use. Physical Exam Vital Signs Vital Signs Date Time Temp Pulse Resp B/P (MAP) Pulse Ox O2 Delivery O2 Flow Rate FiO2 10/22/17 15:00 110 10/22/17 13:45 40 10/22/17 11:00 98 Mechanical Ventilator 40 10/22/17 11:00 99.1 120 27 111/80 (90) 98 126/69 (88) 10/22/17 11:00 120 10/22/17 11:00 40 10/22/17 07:15 97 40 10/22/17 07:00 99 Mechanical Ventilator 40 10/22/17 07:00 110 10/22/17 07:00 99.0 110 27 106/62 (77) 99 126/66 (86) 10/22/17 07:00 40 10/22/17 03:56 98 40 10/22/17 03:00 100.3 120 27 118/45 (69) 98 147/69 (95) 10/22/17 03:00 120 10/22/17 03:00 98 Mechanical Ventilator 40 10/22/17 03:00 40 10/21/17 23:00 114 10/21/17 23:00 40 10/21/17 23:00 99 Mechanical Ventilator 40 10/21/17 23:00 99.0 114 27 111/73 (86) 99 119/59 (79) 10/21/17 21:55 99 40 10/21/17 20:35 99 40 10/21/17 19:00 117 10/21/17 19:00 99 Mechanical Ventilator 40 10/21/17 19:00 98.7 117 27 121/82 (95) 99 134/68 (90) 10/21/17 19:00 40 10/21/17 16:00 97 40 Physical Exam GENERAL: Patient is a well-nourished, well-developed male, on the vent, off sedation, not waking up, not in respiratory distress. SKIN: Warm and moist. No generalized rash, no ecchymoses and no evidence of embolic lesions. HEAD: Atraumatic. Normocephalic. No temporal wasting, or tenderness. EYES: Mucarabones conjunctiva. No petechia or hemorrhage. Pupils unequal, round, L larger than R. Has dirty sclera. EARS, NOSE AND THROAT: Nose without bleeding or purulent nasal discharge. He is orally intubated. NECK: Trachea midline. Supple and not tender, no meningeal signs CARDIOVASCULAR: Regular rate and rhythm. No murmurs, rubs or gallops heard RESPIRATORY: Bilateral coarse rhonchi ABDOMEN: Distended, no raection to palpation, not guarding, bowel sounds present and hypoactive. EXTREMITIES: Warm, has pitting edema NEUROLOGICAL: Just off sedation, not responding PSYCHIATRIC: Unable to assess : Chiang catheter in place, urine looks clear. LINE: No evidence of infection Laboratory Laboratory Tests Test 10/21/17 16:08 10/21/17 18:25 10/21/17 19:33 10/22/17 04:45 Total Creatine Kinase 57736 65518 Creatine Kinase MB 22.8 18.0 Creatine Kinase MB % 0.1 0.1 Lactic Acid Level 1.2 Potassium Level 4.2 4.3 White Blood Count 19.9 Red Blood Count 3.33 Hemoglobin 8.8 Hematocrit 25.1 Mean Corpuscular Volume 75.2 Mean Corpuscular Hemoglobin 26.3 Mean Corpuscular Hemoglobin Concent 35.0 Red Cell Distribution Width 15.8 Platelet Count 70 Mean Platelet Volume 10.1 Neutrophils (%) (Auto) 83.9 Lymphocytes (%) (Auto) 7.1 Monocytes (%) (Auto) 6.6 Eosinophils (%) (Auto) 1.8 Basophils (%) (Auto) 0.6 Neutrophils # (Auto) 16.7 Lymphocytes # (Auto) 1.4 Monocytes # (Auto) 1.3 Eosinophils # (Auto) 0.4 Basophils # (Auto) 0.1 CBC Comment AUTO DIFF Differential Total Cells Counted 100 Neutrophils % (Manual) 52 Band Neutrophils % 32 Lymphocytes % 6 Monocytes % 6 Eosinophils % 3 Neutrophils # (Manual) 16.9 Metamyelocytes 1 Differential Comment FINAL DIFF MANUAL Toxic Vacuolation PRESENT Dohle Bodies PRESENT Platelet Estimate LOW Platelet Morphology Comment ENLARGED Blood Urea Nitrogen 55 Creatinine 2.30 Random Glucose 150 Calcium Level 7.6 Sodium Level 152 Chloride Level 120 Carbon Dioxide Level 20.6 Anion Gap 11 Estimat Glomerular Filtration Rate 38 Test 10/22/17 13:41 Blood Urea Nitrogen 57 Creatinine 2.39 Random Glucose 152 Total Protein 5.1 Albumin 1.9 Calcium Level 7.8 Phosphorus Level 2.4 Magnesium Level 2.4 Alkaline Phosphatase 150 Aspartate Amino Transf (AST/SGOT) 1618 Alanine Aminotransferase (ALT/SGPT) 1266 Total Bilirubin 1.0 Sodium Level 151 Potassium Level 4.4 Chloride Level 120 Carbon Dioxide Level 20.4 Anion Gap 11 Total Creatine Kinase 9391 Date/Time Source Procedure Growth Status 10/18/17 22:56 Blood Peripheral Aerobic Blood Culture - Preliminary NO GROWTH IN 4 DAYS Resulted 10/18/17 22:56 Blood Peripheral Anaerobic Blood Culture - Preliminary NO GROWTH IN 4 DAYS Resulted 10/19/17 13:00 Nasal Aspirate Influenza Types A,B Antigen (TAHMINA) - Final NEGATIVE FOR FLU A AND B ANTIGEN.... Complete 10/18/17 00:00 Urine Catheterized Urine Legionella Antigen - Final PRESUMPTIVE NEGATIVE FOR LEGIONELLA P... Complete 10/18/17 00:00 Urine Catheterized Urine Streptococcus pneumoniae Antigen (M - Final PRESUMPTIVE NEGATIVE FOR STREPTOCOCCU... Complete Result Diagram: 10/22/17 3695 10/22/17 1341 Imaging RADIOLOGY STUDIES/FILMS REVIEWED Last Impressions Chest X-Ray 10/21/17 0600 Signed Impressions: Service Date/Time: Saturday, October 21, 2017 05:10 - CONCLUSION: 1. Slight worsening of patchy air space disease since October 19. Support apparatus unchanged. Dimitrios Urbina MD Renal Ultrasound 10/19/17 0000 Signed Impressions: Service Date/Time: Thursday, October 19, 2017 09:46 - CONCLUSION: Normal examination. Alexx Baig MD Assessment and Plan Assessment and Plan IMPRESSION Possible sepsis on initial presentation with fevers, dec LOC, MOSF - source possible lung, has aishwarya nodular infiltrates, BC negative, no sputum C/S DM, DKA Elevated CPK Elevated LFTs Renal failure Acidosis, resolved Encephalopathy, ?metabolic, or [employer] etiology Leukocytosis , thrombocytopenia RECOMMENDATION Repeat 2 BC Sputum G/S C/S US liver to eval abnormal LFT May need CT A/P as well as CT chest to evaluate further nodular infiltrates Neuro has been consulted Contniue current empiric Abx since temps better: vanco, cefepime and Flagyl Follow new C./S Monitor progress I will follow along with you Thank you for this consultation Discussed Condition With D/W RN D/W Haley Cordova MD October 22, 2017 15:48
--- NOTE | 2017-10-22 20:36 | MB ---
cc: Huey Solis MD DATE: 10/22/2017 HISTORY: The history is from the chart. The patient is intubated and unresponsive. A 42-year-old man brought to the hospital for poor intake, thirst, increased fluid intake, nausea, vomiting, some confusion, brought to the ER, sugar of 1800. Creatinine was 3, sodium 121, abnormal electrolytes, acidosis high fevers, elevated white count, became unresponsive, got intubated. Elevated CPK. Urine output and creatinine improved. Two blood cultures negative. Started on aspiration antibiotics, had some high fevers; those have come down. He has been getting vancomycin, cefepime and Flagyl. LFTs also elevated. He had an episode of ventricular tachycardia, ventricular fibrillation but still had a pulse and was defibrillated. ALLERGIES: NO KNOWN DRUG ALLERGIES. PAST MEDICAL HISTORY: Depression, anxiety, hypertension, NSAID use. He was not answering questions but was awake. He was staring in the ER. Blood pressure was 150/70. He was evidently on Seroquel. Question of malignant hyperthermia was entertained, also was on BuSpar and possibly history of cocaine use. He was a poor historian. SOCIAL HISTORY: He drinks 3 beers 3 times a week. He smokes 1/2 pack of cigarettes a day. He uses cocaine every 2 days and also MJ. ALLERGIES: NO KNOWN DRUG ALLERGIES. MEDICATIONS BEFORE ADMISSION: 1. Lisinopril. 2. Seroquel 100 a day. 3. Depakote 250 a day. 4. Amlodipine. 5. Benazepril. 6. BuSpar 10 a day. 7. Naproxen. 8. Oravig. 9. Hydroxyzine. CURRENT MEDICATIONS: 1. He is on some insulin. 2. Protonix. 3. Fentanyl. 4. Cefepime. 5. Metronidazole. 6. Tylenol. PHYSICAL EXAMINATION: VITAL SIGNS: On exam, 99, 110, 27, 111/80. Lowest blood pressure noted 69/50 on 10/19/2017. NECK: There is no carotid bruit on the left. He has got too much tubing on the right side to check. HEART: Regular rate and rhythm. I do not detect a murmur. NEUROLOGIC: The left pupil is 3 mm, the right is 2 mm. He is fully sedated. There is no ankle clonus. He is areflexic. The toes are mute. Doll's eyes appear to be normal. LABORATORY DATA: White count is 19,000; it has been slowly going up. Hematocrit 25, platelet count 70,000. Urine drug screen was negative. Depakote level was 5. Sodium is 151, chloride 120, CO2 20, creatinine 2.39, BUN 57, phosphorus 2.4, magnesium is normal. AST is 1600, ALT 1266. CPK is down to 9000. CPK was 29,000. AST was as high as 4000. Initially sodium was 121, corrected calcium is 7.1. LDL cholesterol 104. TSH normal. Coags normal. ABG initially 7.14, 44, 412, now 7.34, 40, 86. Chest x-ray: Opacity of the air spaces. Echocardiogram: Normal ejection fraction. Valves looked okay. IMPRESSION: Hard to tell what he can do neurologically. Evidently, he had a sedation vacation earlier today, did not awaken after 30 minutes. I would check an MRI of the brain. Certainly has a severe metabolic conditions. PLAN: An EEG will also be performed and just check a B12 level on him. MD DEN Madrigal/OPAL , 07:45 PM , 08:35 PM
[2017-10-22 21:16] LABS: RHEUMATOID FACTOR SCREEN NEGATIVE (NEGATIVE)
[2017-10-23] VITALS (12 sets, daily range): BP systolic 136–162; BP diastolic 67–87; PULSE 108–121; RESP 22–35; TEMP 98.6–99.9; O2SAT 94–99
[2017-10-23] MEDS: CEFEPIME INJ 2,000 MG in SODIUM CHLORIDE 0.9% INJ 100 ML IV SCH ×2 (03:13→16:35)
[2017-10-23] MEDS: metroNIDAZOLE 500 MG INJ 100 ML IV SCH ×4 (03:13→20:28)
[2017-10-23] MEDS: fentaNYL DRIP 250 ML IV PRN ×2 (03:13→17:29)
[2017-10-23] MEDS: RESP: ALBUTEROL 2.5 MG/IPRATROPIUM 0.5 MG NEB (SCH) INH (03:57)
[2017-10-23] MEDS: CHLORHEXIDINE GLUCONATE 2 % 1 PACK (2 CLOTHS) TOP SCH (04:00)
[2017-10-23] MEDS: FREE WATER G-TUBE SCH ×8 (04:00→23:52)
[2017-10-23] MEDS: INSULIN REGULAR 100 UNITS/100 ML NS ALGORITHM 3 IV PRN ×2 (04:08)
[2017-10-23 04:33] LABS: BICARBONATE 23.5 MEQ/L (21.0-32.0); CALCIUM 7.9 MG/DL (8.5-10.1); CREATININE 2.31 MG/DL (0.60-1.30)
[2017-10-23 04:34] LABS: RANDOM VANCOMYCIN 10.8 COMMENT
[2017-10-23] MEDS: CHLORHEXIDINE 0.12% (ORAL KIT) 15 ML CUP MT SCH ×2 (08:30→20:29)
[2017-10-23] MEDS: ARTIFICIAL TEARS OPTH SOLN 15 ML BTL EACH EYE SCH ×3 (08:39→20:30)
--- NOTE | 2017-10-23 08:54 | HHI.CCPN ---
Subjective Remarks/Hospital Course This is a 42-year-old AA male. Date of admission 10/19/2017. Past medical history includes depression, hypertension. Patient has no known history of diabetes mellitus but has multiple family members with this diagnosis. Over the past month, patient has been experiencing these sequelae of thirst, diminished appetite. Patient was in halfway until recently and has not had his blood sugar checked according to his sister. He denies any sick contacts. Since being released from halfway, patient has been relatively noncompliant with his home medications due to underlying nausea/vomiting and delirium. Patient was drinking copious amounts of fluids at home. Due to his underlying illness is's family convinced him to come to the hospital for further evaluation treatment today. Name Efraín, patient noted to have a blood sugar 1800. Acute kidney injury creatinine of around 3. Sodium 121. Multiple electrolyte and mellitus and elevated ammonia level. Patient originally presented with fever around 105 to his facility. Received 4 mg of cyproheptadine per ED physician first possible serotonin syndrome. He received ice to fluid/water and acetaminophen/NSAIDs and his blood sugars currently subsiding. Patient became more unresponsive in the ED intervention was intubated with central line placed by ED physician. 10/19:The patient went into V. tach at approximately 0720 am. ACLS protocol instituted. Insulin infusion discontinued. 12-lead EKG obtained, stat VBG obtained. 1 g calcium chloride given to stabilize membrane. The patient was defibrillated 1 prior to my arrival and the scene. The patient was given 50 mEq of potassium orally, as well as 20 meq.'s IV.ROSC returned at 0 750. Attempts made to contact family unsuccessful, palliative care consulted to define healthcare POA surrogacy. Repletion of electrolytes per ICU protocol , serial labs continues. Patient awakened post ROSC noted to have spontaneous eye opening movement of extremities 4 but not following commands. Arterial line placed, the patient continues on Levophed and phenylephrine infusion to maintain MAP. The patient was noted to have a significant respiratory acidosis , initial CO2 96, rate was increased at 6 AM subsequent CO2 67 with pH 6.97. Ventilatory rate increased, sodium bicarbonate 1 amp 4 bicarb level is 16.3 given. 10/20: The patient continues intermittently on a cooling blanket. EEG was performed which revealed moderate to severe encephalopathy. When the patient was off sedation spontaneous eye opening no tracking no movement of extremities. No further episodes of V. tach during the night. Potassium was aggressively repleted yesterday, nephrology was consulted regarding elevated creatinine in the setting of hypokalemia. Sodium bicarbonate infusion was instituted , now with resolution of metabolic acidosis .The patient's blood glucose continue to trend upward during the night the patient was placed on a non-DKA insulin infusion, currently at 4 units/hour. The patient continues to require vasopressors and currently on 3 to maintain map greater than 65. The patient is urinary output overnight for 12 hours was approximately 1300 cc. No significant elevation in temperature during the night recorded 100.0 10/21: electrolyte disturbances improving. afebrile. still encephalopathic and not arousing appropriately. initiated SBTs today but patient became severely tachypneic. 10/22: encephalopathy persists. platelet count improving, but too low for LP. electrolyte abn persists, but continue to slowly improve. 10/23: Remains intubated sedated with fentanyl. Remains tachycardic, encephalopathy. Opens his eyes to verbal stimulation. Appears to track. Slight withdrawal to pain but no spontaneous movements or following commands. Sodium remains elevated at 154, increase 1/4 normal saline to 100 mL/h. no fever last 24 hours Objective Vital Signs Date Time Temp Pulse Resp B/P (MAP) Pulse Ox O2 Delivery O2 Flow Rate FiO2 10/23/17 08:10 98 40 10/23/17 07:00 99.6 117 29 146/72 (96) 147/72 (97) 10/23/17 07:00 Mechanical Ventilator Intake and Output 10/23/17 10/23/17 10/24/17 08:00 16:00 00:00 Intake Total 1854 ml Output Total 2950 ml Balance -1096 ml Result Diagram: 10/22/17 0445 10/23/17 0350 Other Results Laboratory Tests Test 10/23/17 06:32 Blood Gas Puncture Site ART LINE Blood Gas Patient Temperature 98.6 Blood Gas HCO3 20 mmol/L (22-26) Blood Gas Base Excess -4.3 mmol/L (-2-2) Blood Gas Oxygen Saturation 96 % (90-100) Arterial Blood pH 7.34 (7.380-7.420) Arterial Blood Partial Pressure CO2 39 mmHg (38-42) Arterial Blood Partial Pressure O2 133 mmHg (61-120) Arterial Blood Oxygen Content 11.7 Vol % (12.0-20.0) Arterial Blood Carboxyhemoglobin 0.9 % (0-4) Arterial Blood Methemoglobin 1.9 % (0-2) Blood Gas Hemoglobin 8.5 G/DL (12.0-16.0) Oxygen Delivery Device VENTILATOR Blood Gas Ventilator Setting PRVC/AC Blood Gas Inspired Oxygen 40 % Imaging Last Impressions Chest X-Ray 10/19/17252 Signed Impressions: Service Date/Time: Thursday, October 19, 2017 02:56 - CONCLUSION: 1. Bilateral pulmonary infiltrates. Dennis Claire Jr., MD Renal Ultrasound 10/19/17 0000 Signed Impressions: Service Date/Time: Thursday, October 19, 2017 09:46 - CONCLUSION: Normal examination. Alexx Baig MD Last Impressions Chest X-Ray 10/19/17252 Signed Impressions: Service Date/Time: Thursday, October 19, 2017 02:56 - CONCLUSION: 1. Bilateral pulmonary infiltrates. Dennis Claire Jr., MD Objective Remarks GENERAL: 42-year-old AA male lying in bed, orotracheally intubated and sedated with Fentanyl SKIN: Warm and dry. Multiple tattoos HEAD: Atraumatic. Normocephalic. EYES: Pupils equal and round about 2 mm bilaterally and reactive no scleral icterus. No injection or drainage. ENT: No nasal bleeding or discharge. Mucous membranes pink and moist. Orotracheally intubated NECK: Trachea midline. No JVD. CARDIOVASCULAR: Tachycardic, RR. off vasopressors. Slightly hypertensive RESPIRATORY: Diminished breath sounds. Symmetrical excursion. No wheezing appreciated. GASTROINTESTINAL: Abdomen soft, non-tender, nondistended. no guarding. MUSCULOSKELETAL: Extremities without significant pitting edema. No obvious deformities. NEUROLOGICAL: Opens eyes to verbal stimuli appears to track or at least attempt attempt. withdraw to pain. does not follow commands. No spontaneous movements noted Urinary Catheter: Yes Assessment to: Continue Date of Insertion: October 19, 2017 Vascular Central Line Catheter: Yes Assessment to: Remove A/P Problem List: (1) Hypokalemia ICD Code: E87.6 - Hypokalemia Status: Acute (2) Acute respiratory failure ICD Code: J96.00 - Acute respiratory failure, unspecified whether with hypoxia or hypercapnia (3) Lactic acidosis ICD Code: E87.2 - Acidosis Status: Acute (4) Hypermagnesemia ICD Code: E83.41 - Hypermagnesemia (5) Pyrexia ICD Code: R50.9 - Fever, unspecified Status: Acute (6) Hyponatremia ICD Code: E87.1 - Hypo-osmolality and hyponatremia Status: Acute (7) Leukocytosis ICD Code: D72.829 - Elevated white blood cell count, unspecified Status: Acute (8) Hypophosphatemia ICD Code: E83.39 - Other disorders of phosphorus metabolism Status: Acute (9) Ketoacidosis due to secondary diabetes ICD Code: E13.10 - Other specified diabetes mellitus with ketoacidosis without coma Status: Acute (10) Acute kidney injury ICD Code: N17.9 - Acute kidney failure, unspecified Status: Acute (11) Acute encephalopathy ICD Code: G93.40 - Encephalopathy, unspecified Status: Acute (12) BMI 37.0-37.9, adult ICD Code: Z68.37 - Body mass index (BMI) 37.0-37.9, adult Status: Acute Assessment and Plan Assessment: 42yM with severe life-threatening electrolyte abnormalities and acute encephalopathy. remains critically ill with hypoxic respiratory failure unable to wean from mechanical ventilation. continue supportive care. Unable to obtain MRI secondary to metal in chest, CT brain pending. if plt improve, will need LP. hyperthermia persists requiring continuous cooling blanket. will ask neurology and ID to get involved. remains critically ill with no meaningful improvements. if we withdraw support, he would . Neuro/Psych: Acute toxic metabolic encephalopathy Depression/anxiety Fentanyl drips for sedation/analgesia while intubated-wean to DC. Use as needed morphine. Currently off versed and propofol. Goal of RASS of -0 Holding Quetiapine 100 mg daily, divalproex 250 mg daily and buspirone 10 mg p.o. 3 times daily/home medication along with hydroxyzine 10 mg p.o. 3 times daily Patient did received cyproheptadine 4 mg 1 for possible serotonin syndrome by ED physician Holding buspirone 10 mg daily, divalproex 250 mg daily/check level and ketamine 100 mg p.o. daily. MRI brain: unable to do due to metal in chest. 10/19 EEG-moderate to severe encephalopathy. CT head pending Neurology Dr. Solis CV: Severe sepsis Lactic acidosis History of essential hypertension Follow-up EKG/troponin Holding home medication of amlodipine/benazepril 10/20 1 tablet daily and lisinopril 20 mg p.o. 2x daily in light of hypotension off vasopressors. Will resume amlodipine 5 mg daily as patient is hypertensive now. Resp: Acute hypoxic and hypercarbic respiratory failure Mixed acidosis- resolving. PRVC ventilation. Ventilator bundle Albuterol/ipratropium aerosols every 4 hours with albuterol aerosols every 2 hours as needed dyspnea Spontaneous breathing trials daily: failed today for tachypnea and respiratory distress. Unable to extubate due to mental status GI: Possible upper GI bleed. Hypoalbuminemia Dietary consult and tube feed Pantoprazole for GI prophylaxis Docusate sodium/senna 1 tablet twice daily for bowel regimen Lactulose 30 cc twice daily. Ammonia level elevated. : Maintain Chiang catheter for accurate I's and O's Endo: Acute hyperglycemic state Ketoacidosis Continue insulin infusion 10/19 Hemoglobin A1c-13 / lipid panel-triglycerides 208 Renal: Acute kidney injury Hypernatremia Monitor urine output Accurate I's and O's Increase 1/4 NS to 100 ml per hour, continue free water flushes Heme: Leukocytosis Normocytic anemia Thrombocytopenia Monitor CBC daily. Follow trends 4t score: low probability for HIT. likely consumption. slightly improved, 70 today ID: Currently in cefepime and metronidazole day #5 Blood cultures 2, sputum, urine, influenza all ordered: NGTD. Consider lumbar puncture, but thrombocytopenia prevents this currently. Patient is afebrile now, opens eyes appears to track I will hold off LP at this time MRI brain: unable to do. CT pending ID Dr. Sanchez Procalcitonin 9.03 indicating probable infectious etiology FEN: Hypokalemia Hypophosphatemia Hypermagnesemia Replace electrolytes as clinically indicated. Currently on hypotonic saline to correct sodium Receiving IV phosphorus and potassium Monitor serial electrolyte levels MSK: Elevated BMI of 37 PT evaluate and treat Access -Right femoral CVL day #5 placed in ED by ED physician-DC today and use peripherals. DC art line placed / Prophylaxis GI -pantoprazole -DVT -SCD/holding pharmacological prophylaxis with possible upper GI bleed, thrombocytopenia Critical Care: my billing statement This patient remains critically ill with one or more organ systems which are or may become a threat to life. I have spent in excess of 32 minutes discontinuously in the care and management of this patient. This time is exclusive of procedures, and includes, but is not limited to, evaluation of the patient, review of the medical record, discussions with family, consultants, nursing staff, or respiratory therapy, and documentation in the medical record. Problem Qualifiers (1) Acute respiratory failure: Qualified Codes: J96.01 - Acute respiratory failure with hypoxia; J96.02 - Acute respiratory failure with hypercapnia (2) Pyrexia: Qualified Codes: R50.9 - Fever, unspecified Radha Valdes MD October 23, 2017 08:54
[2017-10-23] MEDS: LACTULOSE SYRUP 20 GM/30 ML CUP PO SCH ×3 (09:00→13:00)
[2017-10-23] MEDS: RESP: ALBUTEROL 2.5 MG/3 ML NEB (PRN) INH ×3 (09:07→22:29)
[2017-10-23] MEDS: SODIUM CHLORIDE 0.9% FLUSH 10 ML FLUSH IV FLUSH SCH ×2 (09:24→20:28)
[2017-10-23] MEDS: PANTOPRAZOLE SODIUM 40 MG VIAL IV PUSH SCH ×2 (09:24→20:28)
[2017-10-23] MEDS: amLODIPine BESYLATE 5 MG TAB PO SCH (09:25)
[2017-10-23] MEDS: DOCUSATE SODIUM 50 MG/SENNA 8.6 MG TAB PO SCH ×2 (09:26→20:33)
--- NOTE | 2017-10-23 09:54 | RADRPT ---
EXAM DATE: 10/23/2017 9:44 AM EDT AGE/SEX: 42 years / Male INDICATIONS: Respiratory disease. CLINICAL DATA: This is the patient's subsequent encounter. Patient reports that signs and symptoms h ave been present for 3 days and indicates a pain score of Nonresponsive. MEDICAL/SURGICAL HISTORY: Hypertension. Cardiovascular disease. . Unable to obtain. COMPARISON: No prior [facility] exams available for comparison. FINDINGS: There are scattered bilateral pulmonary infiltrates in both lung yuen. No definite pneum othorax is seen. There is an endotracheal tube in place. There is an NG tube in the stomach. The hear t size is within normal limits. There are no pleural effusions. There is multiple tiny metallic forei gn bodies overlying the right hemithorax. The bony structures are grossly intact. CONCLUSION: Scattered bilateral pulmonary infiltrates. Electronically signed by: Dionicio Ruiz MD 10/23/2017 9:53 AM EDT
--- NOTE | 2017-10-23 10:17 | HHI.HCPN ---
Received voicemail from son, Christofer Palomo [phone]. Attempted to call him back, unable to reach, left VM. Will need to determine if he and sibling(s) wish to participate in medical decision making for Mr. Palomo. Rosina Claire MANAGER QA, [employer] October 23, 2017 10:17
--- NOTE | 2017-10-23 10:28 | HHI.NPPN ---
Subjective General Problems: Edema Renal Failure: Acute Interval History Intubated, off sedation not waking up. Tachycardia persists. Excellent urine output. Creatinine has improved. ([place] Davalos) Review of Systems General General Remarks unable to obtain ([place] Dav[place]) Objective Data Data Vital Signs Date Time Temp Pulse Resp B/P (MAP) Pulse Ox O2 Delivery O2 Flow Rate FiO2 10/23/17 09:14 40 10/23/17 08:10 98 40 10/23/17 07:00 40 10/23/17 07:00 99.6 117 29 146/72 (96) 98 147/72 (97) 10/23/17 07:00 98 Mechanical Ventilator 40 10/23/17 07:00 117 10/23/17 03:57 97 40 10/23/17 03:00 40 10/23/17 03:00 114 10/23/17 03:00 97 Mechanical Ventilator 40 10/23/17 03:00 98.6 114 28 136/76 (96) 97 156/76 (102) 10/23/17 01:42 99 40 10/22/17 23:00 98.7 109 29 131/83 (99) 95 126/66 (86) 10/22/17 23:00 40 10/22/17 23:00 95 Mechanical Ventilator 40 10/22/17 23:00 115 10/22/17 20:06 98 40 10/22/17 19:00 99 Mechanical Ventilator 40 10/22/17 19:00 109 10/22/17 19:00 98.7 109 28 133/84 (100) 98 139/67 (91) 10/22/17 19:00 40 10/22/17 17:12 97 40 10/22/17 15:00 40 10/22/17 15:00 97 Mechanical Ventilator 40 10/22/17 15:00 99.1 120 27 111/80 (90) 98 126/69 (88) 10/22/17 15:00 110 10/22/17 13:45 40 10/22/17 11:00 98 Mechanical Ventilator 40 10/22/17 11:00 99.1 120 27 111/80 (90) 98 126/69 (88) 10/22/17 11:00 120 10/22/17 11:00 40 ([place]) -: 10/22/17 0445 10/23/17 0350 Microbiology 10/22/17 Aerobic Blood Culture, Received Pending 10/22/17 Anaerobic Blood Culture, Received Pending 10/22/17 Aerobic Blood Culture, Received Pending 10/22/17 Anaerobic Blood Culture, Received Pending 10/22/17 Gram Stain - Final, Resulted 10/22/17 Sputum Culture, Resulted Pending Imaging Last 72 hours Impressions Chest X-Ray 10/23/17 0000 Signed Impressions: CONCLUSION: Scattered bilateral pulmonary infiltrates. Chest X-Ray 10/21/17 0600 Signed Impressions: Service Date/Time: Saturday, October 21, 2017 05:10 - CONCLUSION: 1. Slight worsening of patchy air space disease since October 19. Support apparatus unchanged. Dimitrios Urbina MD Tubes & Lines: Chiang Tubes & Lines Comment rectal bag, TLC Drip Comment 06/07 NS, insulin ([place] Dav[place]) Physical Exam General Appearance: Well Developed, No Acute Distress, Comfortable Appearance Remarks intubated, unresponsive on the vent ([place]) Eyes Eye Remarks small pupils, left 2 mm, right 1 mm, sluggish ([place]) Throat Throat Remarks lip edematous, left side ([place]) Neck Neck Exam: Neck Supple ([place]) Pulmonary Resp Exam: Breath Sounds Equal, No Distress, Diminished Breath Sounds Resp Remarks vented ([place] Dav[place]os) Cardiology CV Exam: Regular, Tachycardia ([place]) Gastrointestinal/Abdomen GI Exam: Soft, Non-Tender, Bowel Sounds Present ([place]) Musculoskeletal MS Exam: Joints Intact, Normal Tone, Unable to Ambulate ([place]) Integumentary Skin Exam: Clear, Warm, Dry, Intact ([place]) Extremeties Extremities Exam: Pedal Pulses Palpable, Trace Edema ([place]) Neurologic Neuro Exam: Unresponsive, Comatose ([place]) Psychiatric Psych Remarks unable to evaluate ([place]) Assessment/Plan Assessment Summary: CADY/Acute Renal Failure Electrolyte Assessment: Hypernatremia Problem List: (1) Acute kidney injury ICD Codes: N17.9 - Acute kidney failure, unspecified Status: Acute Plan: No baseline labs available for comparison CADY initially due to prerenal azotemia (secondary to hyperglycemia/DKA) He also developed rhabdomyolysis s/p cardiac arrest with chest compressions. Renal function improving slowly Excellent urine output, responding to diuretics Give 500 mg Diuril today, evaluate response. Avoid nephrotoxic agents Off pressors Repeat labs daily (2) Hyperglycemia ICD Codes: R73.9 - Hyperglycemia, unspecified Plan: resolving DKA On insulin gtt, continue per protocol. (3) Hypokalemia ICD Codes: E87.6 - Hypokalemia Status: Acute Plan: Improved, continue to replace as needed follow labs (4) Hypernatremia ICD Codes: E87.0 - Hyperosmolality and hypernatremia Plan: Free water via NG/OG increased to 300 Q4h Hypotonic IVF: 1/4 NS rate is now 100 cc/hr Diuril 500 mg IV today Follow BMP Plan He has a very poor prognosis. ([place] Davalos) Plan patient was seen and examined. Agree with above assessment and plan. There is at least a theoretical concern that 1/4NS IV infusing at high rate can cause hemolysis. (Shad Schroeder MD) [place] Davalos October 23, 2017 10:27 Shad Schroeder MD October 23, 2017 16:03
[2017-10-23] MEDS ORDERED: CHLOROTHIAZIDE SOD 500 MG VIAL IV ONE (10:30)
[2017-10-23] MEDS: SODIUM CHLORIDE 23.4% INJ 38.5 MEQ in WATER STERILE FOR INJ 1,000 ML IV SCH ×2 (11:41→20:30)
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
[2017-10-23] MEDS ORDERED: MIDAZOLAM HCL 5 MG/ML VIAL (1 ML) ONE (11:57)
--- NOTE | 2017-10-23 12:19 | RADRPT ---
EXAM DATE: 10/23/2017 12:07 PM EDT AGE/SEX: 42 years / Male INDICATIONS: Elevated lab values. CLINICAL DATA: This is the patient's initial encounter. Patient reports that signs and/or symptoms h ave been present for 1 day and indicates a pain score of 0/10. LOCATION: LATERALITY: MEDICAL/SURGICAL HISTORY: Diabetes. COMPARISON: No prior [facility] exams available for comparison MEASUREMENTS (cm x cm x cm): Liver:__ 21.9 cm length Common Bile Duct:__ 3mm Right Kidney:__14.2 x 6.7 x 2.7 cm FINDINGS: Liver: There is increased echogenicity of the liver parenchyma. No dilated biliary ducts. No evidenc e of ascites. Portal Vein: Hepatopedal flow seen in portal vein. Common Duct: No intraluminal mass or stone visualized. Gallbladder: Demonstrates no wall thickening or pericholecystic fluid. No stones seen. Pancreas: The visualized portions are within normal limits. Right Kidney: No mass or hydronephrosis. Measures CONCLUSION: 1. There is increased echogenicity of the liver suggestive of fatty infiltration and/or hepatocellul ar disease. 2. No evidence of gallstones or biliary tract obstruction. Electronically signed by: Dionicio Ruiz MD 10/23/2017 12:18 PM EDT
--- NOTE | 2017-10-23 12:45 | HHI.IDPN ---
Subjective Subjective Remarks Patient is a 42-year-old male, brought into the hospital for evaluation of multiple symptoms. He apparently has been having problem with poor p.o. intake , and thirst and increasing fluid intake. There is also mention that he has had problem with nausea and vomiting and some confusion. The symptoms have been going on for about a month. Was brought into the emergency room, and he was found to have a blood sugar of 1800, creatinine was up to 3, sodium 21, and he has multiple abnormal electrolytes. He also had acidosis, and high fevers. His white count was elevated. In the ED he became more unresponsive, and he ended up getting intubated. He was initially on pressors. He was also found to have a very elevated CPK. His electrolytes stabilized, and his acidosis improved. Creatinine improved, and he has improvement in his urine output. He had 2 blood cultures done and those are negative. He was started on empiric antibiotics for possible aspiration. Initial urinalysis was unremarkable. Patient remains on the vent. His mental status still has not improved. Neurology has been consulted. Patient's temperatures seem to have improved. His chest x-ray showing bilateral pulmonary infiltrates and some nodular infiltrates. He has been getting vancomycin, cefepime, and Flagyl. His CPKs are still elevated, and his LFTs were also elevated. Patient also during his hospitalization had episode of V. tach and was resuscitated successfully. Infectious disease consultation has been requested to evaluate patient with high fevers. Notes reviewed Temps ok BP ok D/W RN When sedation was low, he woke up and followed some commands Has a lot of secretions - green color Abd US - possible fatty liver Antibiotics Vancomycin Cefepime Flagyl Current Medications Medications (Trade) Dose Ordered Sig/Jacky Route Start Time Stop Time Status Last Admin (NS Flush) 2 ml UNSCH PRN IV FLUSH 10/19/17 02:30 (NS Flush) 2 ml BID IV FLUSH 10/19/17 09:00 10/23/17 09:24 (Morphine Inj) 2 mg Q2H PRN IV PUSH 10/19/17 02:30 (Albuterol Neb) 2.5 mg Q2HR NEB PRN INH 10/19/17 02:30 10/23/17 09:07 ([facility] [place] [facility]) 1 Q361D XX 10/19/17 02:30 10/19/17 02:30 (Chlorhexidine 2% Cloth) 3 pack Taper DAILY@04 TOP 10/19/17 04:00 10/15/18 03:59 10/23/17 04:00 (Chlorhexidine 2% Cloth) 3 pack UNSCH PRN TOP 10/19/17 02:30 (Candace-Colace) 1 tab BID PO 10/19/17 09:00 10/23/17 09:26 (Milk Of Magnesia Liq) 30 ml Q12H PRN PO 10/19/17 02:30 (Senokot) 17.2 mg Q12H PRN PO 10/19/17 02:30 (Dulcolax Supp) 10 mg DAILY PRN RECTAL 10/19/17 02:30 (Lactulose Liq) 30 ml DAILY PRN PO 10/19/17 02:30 (Zofran Odt) 4 mg Q6H PRN PO 10/19/17 02:30 (Protonix Inj) 40 mg BID IV PUSH 10/19/17 09:00 10/23/17 09:24 (Tears Naturale Opth Soln) 1 drop Q8HR EACH EYE 10/19/17 06:00 10/23/17 08:39 (Peridex 0.12% Liq) 15 ml BID@08,20 MT 10/19/17 08:00 10/23/17 08:30 Acetaminophen 100 ml @ 400 mls/hr Q8H PRN IV 10/19/17 03:30 Cefepime HCl 2000 mg/Sodium Chloride 100 ml @ 200 mls/hr Q12H IV 10/19/17 04:00 10/25/17 05:00 10/23/17 03:13 Metronidazole 100 ml @ 100 mls/hr Q6H IV 10/19/17 04:00 10/23/17 09:24 (Glucagon Inj) 1 mg UNSCH PRN OTHER 10/19/17 04:15 (Brethine Inj) 1 mg UNSCH PRN SQ 10/19/17 07:45 (D50w (Vial) Inj) 50 ml UNSCH PRN IV PUSH 10/19/17 23:30 10/23/17 05:24 Insulin Human Regular 100 units/ Sodium Chloride 100 ml @ 2 mls/hr TITRATE PRN IV 10/20/17 01:45 10/23/17 04:08 (Free Water) 300 ml Q4HR G-TUBE 10/21/17 20:00 10/23/17 08:30 (Lactulose Liq) 30 ml QID PO 10/21/17 18:00 10/23/17 09:24 Sodium Chloride 38.5 meq/Sterile Water 1,009.625 ml @ 100 mls/hr Q10H6M IV 10/22/17 14:00 10/23/17 11:41 (Norvasc) 5 mg DAILY PO 10/23/17 09:00 10/23/17 09:25 Lines Line no evidence of infection Past Medical History Depression/anxiety Hypertension NSAID use Allergies: Coded Allergies: No Known Allergies (Unverified Allergy, Unknown, 10/18/17) Objective . Vital Signs Date Time Temp Pulse Resp B/P (MAP) Pulse Ox O2 Delivery O2 Flow Rate FiO2 10/23/17 09:14 40 10/23/17 08:10 98 40 10/23/17 07:00 40 10/23/17 07:00 99.6 117 29 146/72 (96) 98 147/72 (97) 10/23/17 07:00 98 Mechanical Ventilator 40 10/23/17 07:00 117 10/23/17 03:57 97 40 10/23/17 03:00 40 10/23/17 03:00 114 10/23/17 03:00 97 Mechanical Ventilator 40 10/23/17 03:00 98.6 114 28 136/76 (96) 97 156/76 (102) 10/23/17 01:42 99 40 10/22/17 23:00 98.7 109 29 131/83 (99) 95 126/66 (86) 10/22/17 23:00 40 10/22/17 23:00 95 Mechanical Ventilator 40 10/22/17 23:00 115 10/22/17 20:06 98 40 10/22/17 19:00 99 Mechanical Ventilator 40 10/22/17 19:00 109 10/22/17 19:00 98.7 109 28 133/84 (100) 98 139/67 (91) 10/22/17 19:00 40 10/22/17 17:12 97 40 10/22/17 15:00 40 10/22/17 15:00 97 Mechanical Ventilator 40 10/22/17 15:00 99.1 120 27 111/80 (90) 98 126/69 (88) 10/22/17 15:00 110 10/22/17 13:45 40 . Laboratory Tests Test 10/22/17 04:45 10/22/17 20:07 White Blood Count 19.9 TH/MM3 Red Blood Count 3.33 MIL/MM3 Hemoglobin 8.8 GM/DL Hematocrit 25.1 % Mean Corpuscular Volume 75.2 FL Mean Corpuscular Hemoglobin 26.3 PG Mean Corpuscular Hemoglobin Concent 35.0 % Red Cell Distribution Width 15.8 % Platelet Count 70 TH/MM3 Mean Platelet Volume 10.1 FL Neutrophils (%) (Auto) 83.9 % Lymphocytes (%) (Auto) 7.1 % Monocytes (%) (Auto) 6.6 % Eosinophils (%) (Auto) 1.8 % Basophils (%) (Auto) 0.6 % Neutrophils # (Auto) 16.7 TH/MM3 Lymphocytes # (Auto) 1.4 TH/MM3 Monocytes # (Auto) 1.3 TH/MM3 Eosinophils # (Auto) 0.4 TH/MM3 Basophils # (Auto) 0.1 TH/MM3 CBC Comment AUTO DIFF Differential Total Cells Counted 100 Neutrophils % (Manual) 52 % Band Neutrophils % 32 % Lymphocytes % 6 % Monocytes % 6 % Eosinophils % 3 % Neutrophils # (Manual) 16.9 TH/MM3 Metamyelocytes 1 % Differential Comment FINAL DIFF MANUAL Toxic Vacuolation PRESENT Dohle Bodies PRESENT Platelet Estimate LOW Platelet Morphology Comment ENLARGED Erythrocyte Sedimentation Rate GREATER THAN 140 mm/hr Laboratory Tests Test 10/21/17 16:08 10/21/17 18:25 10/21/17 19:33 10/22/17 04:45 Total Creatine Kinase 08363 U/L 02735 U/L Creatine Kinase MB 22.8 NG/ML 18.0 NG/ML Creatine Kinase MB % 0.1 % 0.1 % Lactic Acid Level 1.2 mmol/L Potassium Level 4.2 MEQ/L 4.3 MEQ/L Blood Urea Nitrogen 55 MG/DL Creatinine 2.30 MG/DL Random Glucose 150 MG/DL Calcium Level 7.6 MG/DL Sodium Level 152 MEQ/L Chloride Level 120 MEQ/L Carbon Dioxide Level 20.6 MEQ/L Anion Gap 11 MEQ/L Estimat Glomerular Filtration Rate 38 ML/MIN Test 10/22/17 13:41 10/22/17 20:07 10/23/17 03:50 Blood Urea Nitrogen 57 MG/DL 55 MG/DL Creatinine 2.39 MG/DL 2.31 MG/DL Random Glucose 152 MG/DL 94 MG/DL Total Protein 5.1 GM/DL Albumin 1.9 GM/DL Calcium Level 7.8 MG/DL 7.9 MG/DL Phosphorus Level 2.4 MG/DL Magnesium Level 2.4 MG/DL Alkaline Phosphatase 150 U/L Aspartate Amino Transf (AST/SGOT) 1618 U/L Alanine Aminotransferase (ALT/SGPT) 1266 U/L Total Bilirubin 1.0 MG/DL Sodium Level 151 MEQ/L 154 MEQ/L Potassium Level 4.4 MEQ/L 4.2 MEQ/L Chloride Level 120 MEQ/L 122 MEQ/L Carbon Dioxide Level 20.4 MEQ/L 23.5 MEQ/L Anion Gap 11 MEQ/L 9 MEQ/L Total Creatine Kinase 9391 U/L Creatine Kinase MB 12.4 NG/ML Creatine Kinase MB % 0.1 % Procalcitonin 9.03 ng/mL Ammonia 12 MCMOL/L C-Reactive Protein 36.70 MG/DL Vitamin B12 Level GREATER THAN 2000 PG/ML Estimat Glomerular Filtration Rate 38 ML/MIN Microbiology Date/Time Source Procedure Growth Status 10/22/17 17:17 Blood Peripheral Aerobic Blood Culture - Preliminary NO GROWTH IN 1 DAY Resulted 10/22/17 17:17 Blood Peripheral Anaerobic Blood Culture - Preliminary NO GROWTH IN 1 DAY Resulted 10/22/17 17:08 Blood Peripheral Aerobic Blood Culture - Preliminary NO GROWTH IN 1 DAY Resulted 10/22/17 17:08 Blood Peripheral Anaerobic Blood Culture - Preliminary NO GROWTH IN 1 DAY Resulted 10/22/17 18:15 Sputum Endotracheal Gram Stain - Final Resulted 10/22/17 18:15 Sputum Endotracheal Sputum Culture - Preliminary HEAVY GROWTH NORMAL RESPIRATORY SAAD... Resulted Imaging Last Impressions Gall Bladder Ultrasound 10/23/17 0000 Signed Impressions: CONCLUSION: Chest X-Ray 10/23/17 0000 Signed Impressions: CONCLUSION: Scattered bilateral pulmonary infiltrates. Renal Ultrasound 10/19/17 0000 Signed Impressions: Service Date/Time: Thursday, October 19, 2017 09:46 - CONCLUSION: Normal examination. Alexx Baig MD Physical Exam GENERAL: Patient is a well-nourished, well-developed male, on the vent, sedated, not in respiratory distress. SKIN: Warm and moist. No generalized rash, no ecchymoses and no evidence of embolic lesions. HEAD: Atraumatic. Normocephalic. No temporal wasting, or tenderness. EYES: [place] conjunctiva. No petechia or hemorrhage. Pupils unequal, round, L larger than R. Has dirty sclera. EARS, NOSE AND THROAT: Nose without bleeding or purulent nasal discharge. He is orally intubated. NECK: Trachea midline. Supple and not tender, no meningeal signs CARDIOVASCULAR: Regular rate and rhythm. No murmurs, rubs or gallops heard RESPIRATORY: Bilateral coarse rhonchi - less compared to yesterday ABDOMEN: Distended, no reaction to palpation, not guarding, bowel sounds present and hypoactive. EXTREMITIES: Warm, has pitting edema NEUROLOGICAL: Just off sedation, not responding PSYCHIATRIC: Unable to assess : Chiang catheter in place, urine looks clear. LINE: No evidence of infection Assessment & Plan Remarks IMPRESSION Possible sepsis on initial presentation with fevers, dec LOC, MOSF - source possible lung, has aishwarya nodular infiltrates, BC negative, no sputum C/S DM, DKA Elevated CPK Elevated LFTs Renal failure Acidosis, resolved Encephalopathy, ?metabolic, or HOME HEALTH RN etiology Leukocytosis , thrombocytopenia RECOMMENDATION Follow C/S May need CT A/P as well as CT chest to evaluate further nodular infiltrates Neuro work-up Continue current empiric Abx since temps better: vanco, cefepime and Flagyl Follow new C./S Monitor progress D/W Haley Lang MD October 23, 2017 12:44
[2017-10-23] MEDS ORDERED: MIDAZOLAM HCL 5 MG/ML VIAL (1 ML) IV ONE (15:15)
[2017-10-23 15:59] LABS: AMORPHOUS SEDIMENT, URINE RARE; BILIRUBIN, URINE NEG (NEG); BLOOD, URINE MOD (NEG); GLUCOSE,URINE NEG (NEG); KETONE, URINE 10 mg/dL (NEG); MUCUS URINE FEW /lpf (OCC); NITRITE,URINE NEG (NEG); SQUAMOUS EPITHELIAL CELL URINE <1 /hpf (0-5); URINE COLOR YELLOW (YELLW/STRAW); URINE LEUKOCYTE ESTERASE NEG (NEG)
--- NOTE | 2017-10-23 20:25 | MG ---
cc: Huey Solis MD, David J MD [phone] A 42-year-old, off sedatives, change in mental status, bipolar. Antibiotics. INTERPRETATION: A lot of bitemporal muscle artifact and sweat artifact is seen and very low-amplitude rhythm is noted. This appears to be in the high beta range, although it may just be ICU background artifact. There is no hemisphere asymmetry and no epileptiform or seizure activity is noted. Hyperventilation is not performed. Photic stimulation is performed without significant posterior driving. IMPRESSION: Diffuse low-amplitude, could be medication effect. No hemisphere asymmetries are noted. No epileptiform or seizure activity was seen. Huey Solis MD DJM/ , 07:44 PM , 08:24 PM
[2017-10-23] MEDS: MORPHINE SULFATE 4 MG/ML INJ IV PUSH PRN (20:30)
[2017-10-23] MEDS ORDERED: hydrALAZINE HCL 20 MG/ML VIAL IV PUSH PRN (20:45)
[2017-10-23] MEDS ORDERED: LACTULOSE SYRUP 20 GM/30 ML CUP PO PRN (21:30)
[2017-10-24] VITALS (15 sets, daily range): BP systolic 144–166; BP diastolic 63–86; PULSE 100–116; RESP 22–35; TEMP 98.6–100.2; O2SAT 94–99
[2017-10-24] MEDS: fentaNYL DRIP 250 ML IV PRN (01:34)
[2017-10-24] MEDS: MORPHINE SULFATE 4 MG/ML INJ IV PUSH PRN (02:42)
[2017-10-24] MEDS: CHLORHEXIDINE GLUCONATE 2 % 1 PACK (2 CLOTHS) TOP SCH (04:00)
[2017-10-24] MEDS: FREE WATER G-TUBE SCH ×2 (04:00→08:00)
[2017-10-24] MEDS: RESP: ALBUTEROL 2.5 MG/3 ML NEB (PRN) INH ×2 (04:07→08:36)
--- NOTE | 2017-10-24 04:42 | RADRPT ---
EXAM DATE: 10/24/2017 4:33 AM EDT AGE/SEX: 42 years / Male INDICATIONS: Short of breath. CLINICAL DATA: This is the patient's subsequent encounter. Patient reports that signs and symptoms h ave been present for 1 week and indicates a pain score of 0/10. MEDICAL/SURGICAL HISTORY: . Hypertension. Cardiovascular disease. None. COMPARISON: [facility] [place], CHEST SINGLE AP, 10/23/2017. . FINDINGS: A single AP portable semierect view of the chest was obtained and again demonstrates an endotracheal tube in place with the tip approximately 4 cm above the jonathan. Nasogastric tube remains in place. Bi lateral hazy pulmonary opacities remain without significant change. There are multiple small metallic foreign bodies overlying the right hemithorax. The bony thorax is otherwise intact. There is overlyi ng artifact. CONCLUSION: No significant change. Bilateral pulmonary opacities remain. Electronically signed by: Bryce Sheth MD 10/24/2017 4:40 AM EDT
[2017-10-24 05:50] LABS: HEMATOCRIT 23.6 % (39.0-51.0); HEMOGLOBIN 8.1 GM/DL (13.0-17.0); MEAN CORPUSCULAR HEMOGLOBIN 26.4 PG (27.0-34.0); MEAN CORPUSCULAR HGB CONC 34.3 % (32.0-36.0); PLATELET COUNT 178 TH/MM3 (150-450); RED BLOOD COUNT 3.06 MIL/MM3 (4.50-5.90); RED CELL DISTRIBUTION WIDTH 15.9 % (11.6-17.2)
[2017-10-24] MEDS: ARTIFICIAL TEARS OPTH SOLN 15 ML BTL EACH EYE SCH ×3 (06:02→21:39)
[2017-10-24] MEDS: CEFEPIME INJ 2,000 MG in SODIUM CHLORIDE 0.9% INJ 100 ML IV SCH ×2 (06:02→15:56)
[2017-10-24] MEDS: metroNIDAZOLE 500 MG INJ 100 ML IV SCH ×4 (06:02→21:37)
[2017-10-24 06:12] LABS: BICARBONATE 21.8 MEQ/L (21.0-32.0); CALCIUM 8.1 MG/DL (8.5-10.1); CREATININE 2.15 MG/DL (0.60-1.30)
[2017-10-24 07:24] LABS: BANDS 21 % (0-6); CORRECTED NUCLEATED RBC 12 /100 WBC (0-0); LYMPHOCYTES 13 % (9-44); METAMYELOCYTES 9 % (0-1); MONOCYTES 13 % (0-8); MYELOCYTES 3 % (0-0); NEUTROPHIL # MANUAL DIFF 15.1 TH/MM3 (1.8-7.7); NUCLEATED RED BLOOD CELL 12 (0-0); POLYS (SEG NEUTROPHILS) 39 % (16-70); TARGET CELLS 1+ (NORMAL); TOXIC GRANULATION 2+ (NORMAL)
[2017-10-24] MEDS: SODIUM CHLORIDE 23.4% INJ 38.5 MEQ in WATER STERILE FOR INJ 1,000 ML IV SCH ×2 (07:56→15:12)
--- NOTE | 2017-10-24 08:15 | HHI.PR ---
Subjective Remarks on vent awake Objective Vital Signs Date Time Temp Pulse Resp B/P (MAP) Pulse Ox O2 Delivery O2 Flow Rate FiO2 10/24/17 08:03 98 40 10/24/17 04:07 97 40 10/24/17 03:00 99.9 104 33 155/85 (108) 99 145/63 (90) 10/24/17 03:00 40 10/24/17 03:00 112 10/24/17 03:00 99 Mechanical Ventilator 40 10/24/17 01:10 96 40 10/23/17 23:00 98 Mechanical Ventilator 40 10/23/17 23:00 40 10/23/17 23:00 99.8 113 31 152/85 (107) 98 152/72 (98) 10/23/17 23:00 109 10/23/17 20:46 94 40 10/23/17 19:00 99.4 118 35 162/85 (110) 97 151/70 (97) 10/23/17 19:00 97 Mechanical Ventilator 40 10/23/17 19:00 40 10/23/17 19:00 118 10/23/17 17:35 95 Mechanical Ventilator 40 10/23/17 17:33 40 10/23/17 17:01 96 40 10/23/17 16:00 108 10/23/17 15:00 98.7 121 29 144/87 (106) 97 146/67 (93) 10/23/17 11:00 99.9 121 22 139/83 (101) 98 140/69 (92) 10/23/17 09:14 40 I/O 10/23/17 10/23/17 10/23/17 10/24/17 10/24/17 10/24/17 07:00 15:00 23:00 07:00 15:00 23:00 Intake Total 1954 ml 1546 ml 2657.7 ml 200 ml Output Total 2950 ml 1900 ml 2375 ml Balance -996 ml -354 ml 282.7 ml 200 ml IV Total 925 ml 1346 ml 1510.7 ml 200 ml Tube Feeding 369 ml 247 ml Tube Irrigant 60 ml Other 600 ml 200 ml 900 ml Output Urine Total 1950 ml 1850 ml 2275 ml Stool Total 1000 ml 50 ml 100 ml Result Diagram: 10/24/17 0451 10/24/17 045 Objective Remarks following commands well bilat feet slight anis[place] Assessment and Plan Assessment and Plan imp much better prob neg neuro [place] here mri when able better than ct eeg neg Huey Solis MD October 24, 2017 08:15
[2017-10-24] MEDS: SODIUM CHLORIDE 0.9% FLUSH 10 ML FLUSH IV FLUSH SCH ×2 (08:17→21:36)
[2017-10-24] MEDS: CHLORHEXIDINE 0.12% (ORAL KIT) 15 ML CUP MT SCH ×2 (08:17→20:00)
[2017-10-24] MEDS: PANTOPRAZOLE SODIUM 40 MG VIAL IV PUSH SCH ×2 (08:32→21:36)
[2017-10-24] MEDS: amLODIPine BESYLATE 5 MG TAB PO SCH (08:32)
[2017-10-24] MEDS: DOCUSATE SODIUM 50 MG/SENNA 8.6 MG TAB PO SCH ×2 (08:53→21:00)
--- NOTE | 2017-10-24 09:13 | HHI.CCPN ---
Subjective Remarks/Hospital Course This is a 42-year-old AA male. Date of admission 10/19/2017. Past medical history includes depression, hypertension. Patient has no known history of diabetes mellitus but has multiple family members with this diagnosis. Over the past month, patient has been experiencing these sequelae of thirst, diminished appetite. Patient was in senior living until recently and has not had his blood sugar checked according to his sister. He denies any sick contacts. Since being released from senior living, patient has been relatively noncompliant with his home medications due to underlying nausea/vomiting and delirium. Patient was drinking copious amounts of fluids at home. Due to his underlying illness is's family convinced him to come to the hospital for further evaluation treatment today. Name Efraín, patient noted to have a blood sugar 1800. Acute kidney injury creatinine of around 3. Sodium 121. Multiple electrolyte and mellitus and elevated ammonia level. Patient originally presented with fever around 105 to his facility. Received 4 mg of cyproheptadine per ED physician first possible serotonin syndrome. He received ice to fluid/water and acetaminophen/NSAIDs and his blood sugars currently subsiding. Patient became more unresponsive in the ED intervention was intubated with central line placed by ED physician. 10/19:The patient went into V. tach at approximately 0720 am. ACLS protocol instituted. Insulin infusion discontinued. 12-lead EKG obtained, stat VBG obtained. 1 g calcium chloride given to stabilize membrane. The patient was defibrillated 1 prior to my arrival and the scene. The patient was given 50 mEq of potassium orally, as well as 20 meq.'s IV.ROSC returned at 0 750. Attempts made to contact family unsuccessful, palliative care consulted to define healthcare POA surrogacy. Repletion of electrolytes per ICU protocol , serial labs continues. Patient awakened post ROSC noted to have spontaneous eye opening movement of extremities 4 but not following commands. Arterial line placed, the patient continues on Levophed and phenylephrine infusion to maintain MAP. The patient was noted to have a significant respiratory acidosis , initial CO2 96, rate was increased at 6 AM subsequent CO2 67 with pH 6.97. Ventilatory rate increased, sodium bicarbonate 1 amp 4 bicarb level is 16.3 given. 10/20: The patient continues intermittently on a cooling blanket. EEG was performed which revealed moderate to severe encephalopathy. When the patient was off sedation spontaneous eye opening no tracking no movement of extremities. No further episodes of V. tach during the night. Potassium was aggressively repleted yesterday, nephrology was consulted regarding elevated creatinine in the setting of hypokalemia. Sodium bicarbonate infusion was instituted , now with resolution of metabolic acidosis .The patient's blood glucose continue to trend upward during the night the patient was placed on a non-DKA insulin infusion, currently at 4 units/hour. The patient continues to require vasopressors and currently on 3 to maintain map greater than 65. The patient is urinary output overnight for 12 hours was approximately 1300 cc. No significant elevation in temperature during the night recorded 100.0 10/21: electrolyte disturbances improving. afebrile. still encephalopathic and not arousing appropriately. initiated SBTs today but patient became severely tachypneic. 10/22: encephalopathy persists. platelet count improving, but too low for LP. electrolyte abn persists, but continue to slowly improve. 10/23: Remains intubated sedated with fentanyl. Remains tachycardic, encephalopathy. Opens his eyes to verbal stimulation. Appears to track. Slight withdrawal to pain but no spontaneous movements or following commands. Sodium remains elevated at 154, increase 1/4 normal saline to 100 mL/h. no fever last 24 hours 10/24: although patient is technically afebrile, he still requires continuous cooling blanket to prevent fevers. wbc still uptrending. now following commands. although neuro exam has improved, persistent fevers are concerning, and with platelet count now >100k, risk of LP minimal. will obtain CSF for additional information today. electrolyte abnormalities persist and we are aggressively treating these. Objective Vital Signs Date Time Temp Pulse Resp B/P (MAP) Pulse Ox O2 Delivery O2 Flow Rate FiO2 10/24/17 08:03 98 40 10/24/17 07:00 Mechanical Ventilator 10/24/17 03:00 99.9 104 33 155/85 (108) 145/63 (90) Intake and Output 10/24/17 10/24/17 10/25/17 08:00 16:00 00:00 Intake Total 2857.7 ml Output Total 2375 ml Balance 482.7 ml Result Diagram: 10/24/17 0451 10/24/17 0451 Imaging Last Impressions Chest X-Ray 10/19/17 0253 Signed Impressions: Service Date/Time: Thursday, October 19, 2017 02:56 - CONCLUSION: 1. Bilateral pulmonary infiltrates. Dennis Claire Jr., MD Renal Ultrasound 10/19/17 0000 Signed Impressions: Service Date/Time: Thursday, October 19, 2017 09:46 - CONCLUSION: Normal examination. Alexx Baig MD Last Impressions Chest X-Ray 10/19/17 0253 Signed Impressions: Service Date/Time: Thursday, October 19, 2017 02:56 - CONCLUSION: 1. Bilateral pulmonary infiltrates. Dennis Claire Jr., MD Objective Remarks GENERAL: 42-year-old AA male lying in bed, orotracheally intubated and sedated with Fentanyl SKIN: Warm and dry. Multiple tattoos HEAD: Atraumatic. Normocephalic. EYES: Pupils equal and round about 2 mm bilaterally and reactive no scleral icterus. No injection or drainage. ENT: No nasal bleeding or discharge. Mucous membranes pink and moist. Orotracheally intubated NECK: Trachea midline. No JVD. CARDIOVASCULAR: Tachycardic, RR. off vasopressors. Slightly hypertensive RESPIRATORY: Diminished breath sounds. Symmetrical excursion. No wheezing appreciated. GASTROINTESTINAL: Abdomen soft, non-tender, nondistended. no guarding. MUSCULOSKELETAL: Extremities without significant pitting edema. No obvious deformities. NEUROLOGICAL: Opens eyes to verbal stimuli appears to track or at least attempt attempt. withdraw to pain. follows commands this morning. Date of Insertion: October 19, 2017 A/P Problem List: (1) Hypokalemia ICD Code: E87.6 - Hypokalemia Status: Acute (2) Acute respiratory failure ICD Code: J96.00 - Acute respiratory failure, unspecified whether with hypoxia or hypercapnia (3) Lactic acidosis ICD Code: E87.2 - Acidosis Status: Acute (4) Hypermagnesemia ICD Code: E83.41 - Hypermagnesemia (5) Pyrexia ICD Code: R50.9 - Fever, unspecified Status: Acute (6) Hyponatremia ICD Code: E87.1 - Hypo-osmolality and hyponatremia Status: Acute (7) Leukocytosis ICD Code: D72.829 - Elevated white blood cell count, unspecified Status: Acute (8) Hypophosphatemia ICD Code: E83.39 - Other disorders of phosphorus metabolism Status: Acute (9) Ketoacidosis due to secondary diabetes ICD Code: E13.10 - Other specified diabetes mellitus with ketoacidosis without coma Status: Acute (10) Acute kidney injury ICD Code: N17.9 - Acute kidney failure, unspecified Status: Acute (11) Acute encephalopathy ICD Code: G93.40 - Encephalopathy, unspecified Status: Acute (12) BMI 37.0-37.9, adult ICD Code: Z68.37 - Body mass index (BMI) 37.0-37.9, adult Status: Acute Assessment and Plan Assessment: 42yM with severe life-threatening electrolyte abnormalities and acute encephalopathy. remains critically ill with hypoxic respiratory failure unable to wean from mechanical ventilation. continue supportive care. Unable to obtain MRI secondary to metal in chest. will perform LP today. hyperthermia persists requiring continuous cooling blanket and wbc continues to uptrend. some mental status improvement, but overall organ dysfunction persists. Neuro/Psych: Acute toxic metabolic encephalopathy Depression/anxiety Fentanyl drips for sedation/analgesia while intubated-wean to DC. Use as needed morphine. Currently off versed and propofol. Goal of RASS of -0 Holding Quetiapine 100 mg daily, divalproex 250 mg daily and buspirone 10 mg p.o. 3 times daily/home medication along with hydroxyzine 10 mg p.o. 3 times daily Patient did received cyproheptadine 4 mg 1 for possible serotonin syndrome by ED physician Holding buspirone 10 mg daily, divalproex 250 mg daily/check level and ketamine 100 mg p.o. daily. MRI brain: unable to do due to metal in chest. 10/19 EEG-moderate to severe encephalopathy. Neurology Dr. Solis CV: Severe sepsis Lactic acidosis- resolved History of essential hypertension Follow-up EKG/troponin Holding home medication of amlodipine/benazepril 10/20 1 tablet daily and lisinopril 20 mg p.o. 2x daily in light of hypotension off vasopressors. amlodipine 5 mg daily as patient is hypertensive now. Resp: Acute hypoxic and hypercarbic respiratory failure Mixed acidosis- resolved PRVC ventilation. Ventilator bundle Albuterol/ipratropium aerosols every 4 hours with albuterol aerosols every 2 hours as needed dyspnea Spontaneous breathing trials daily: failed today for tachypnea and respiratory distress. Unable to extubate due to mental status GI: Possible upper GI bleed. Hypoalbuminemia Dietary consult and tube feed Pantoprazole for GI prophylaxis Docusate sodium/senna 1 tablet twice daily for bowel regimen Lactulose 30 cc twice daily. Ammonia level elevated. : Maintain Chiang catheter for accurate I's and O's Endo: Acute hyperglycemic state Ketoacidosis Continue insulin infusion 10/19 Hemoglobin A1c-13 10/19 lipid panel-triglycerides 208 Renal: Acute kidney injury Hypernatremia Monitor urine output Accurate I's and O's Increase 1/4 NS to 100 ml per hour, continue free water flushes Heme: Leukocytosis Normocytic anemia Thrombocytopenia- improving. Monitor CBC daily. Follow trends 4t score: low probability for HIT. likely consumption. slightly improved, 170 today ID: Currently in cefepime and metronidazole day #6 Blood cultures 2, sputum, urine, influenza all ordered: NGTD. LP today. MRI brain: unable to do. ID Dr. Sanchez Procalcitonin 9.03 indicating probable infectious etiology FEN: Hypokalemia Hypophosphatemia Hypermagnesemia Replace electrolytes as clinically indicated. Currently on hypotonic saline to correct sodium Receiving IV phosphorus and potassium Monitor serial electrolyte levels MSK: Elevated BMI of 37 PT evaluate and treat Access -piv's Prophylaxis GI -pantoprazole -DVT -SCD/holding pharmacological prophylaxis with possible upper GI bleed, thrombocytopenia: will plan to restart after LP. Critical Care: my billing statement This patient remains critically ill with one or more organ systems which are or may become a threat to life. I have spent in excess of 33 minutes discontinuously in the care and management of this patient. This time is exclusive of procedures, and includes, but is not limited to, evaluation of the patient, review of the medical record, discussions with family, consultants, nursing staff, or respiratory therapy, and documentation in the medical record. Problem Qualifiers (1) Acute respiratory failure: Qualified Codes: J96.01 - Acute respiratory failure with hypoxia; J96.02 - Acute respiratory failure with hypercapnia (2) Pyrexia: Qualified Codes: R50.9 - Fever, unspecified González Enriquez MD October 24, 2017 09:13
--- NOTE | 2017-10-24 09:49 | HHI.NPPN ---
Subjective General Problems: Edema Renal Failure: Acute Interval History Remains intubated. Eyes open, he waves when spoken to. Ongoing fevers. Renal function is better. Hypernatremia worse. ([place] Davalos) Review of Systems General General Remarks unable to obtain ([place] Davalos) Objective Data Data 10/24/17 10/25/17 19:00 07:00 Intake Total 200 ml Balance 200 ml IV Total 200 ml Vital Signs Date Time Temp Pulse Resp B/P (MAP) Pulse Ox O2 Delivery O2 Flow Rate FiO2 10/24/17 08:03 98 40 10/24/17 07:00 40 10/24/17 07:00 99 Mechanical Ventilator 40 10/24/17 04:07 97 40 10/24/17 03:00 99.9 104 33 155/85 (108) 99 145/63 (90) 10/24/17 03:00 40 10/24/17 03:00 112 10/24/17 03:00 99 Mechanical Ventilator 40 10/24/17 01:10 96 40 10/23/17 23:00 98 Mechanical Ventilator 40 10/23/17 23:00 40 10/23/17 23:00 99.8 113 31 152/85 (107) 98 152/72 (98) 10/23/17 23:00 109 10/23/17 20:46 94 40 10/23/17 19:00 99.4 118 35 162/85 (110) 97 151/70 (97) 10/23/17 19:00 97 Mechanical Ventilator 40 10/23/17 19:00 40 10/23/17 19:00 118 10/23/17 17:35 95 Mechanical Ventilator 40 10/23/17 17:33 40 10/23/17 17:01 96 40 10/23/17 16:00 108 10/23/17 15:00 98.7 121 29 144/87 (106) 97 146/67 (93) 10/23/17 11:00 99.9 121 22 139/83 (101) 98 140/69 (92) ([place] Davalos) -: 10/24/17 0451 10/24/17 0451 Imaging Last Impressions Chest X-Ray 10/24/17 0600 Signed Impressions: CONCLUSION: Gall Bladder Ultrasound 10/23/17 0000 Signed Impressions: CONCLUSION: Renal Ultrasound 10/19/17 0000 Signed Impressions: Service Date/Time: Thursday, October 19, 2017 09:46 - CONCLUSION: Normal examination. 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 WELDER AP[employer]ENTICE [employer]) Eyes Eye Remarks small pupils, left 2 mm, right 1 mm, sluggish ([place] Davalos B. WELDER AP[employer]ICE [employer]) Throat Throat Remarks lip edematous, left side ([place] Davalos B. WELDER AP[employer]ENTICE [employer]) Neck Neck Exam: Neck Supple ([place] Davalos B. WELDER AP[employer]ENTICE [employer]) Pulmonary Resp Exam: Breath Sounds Equal, No Distress, Diminished Breath Sounds Resp Remarks vented ([place] Davalos B. WELDER AP[employer]ICE [employer]) Cardiology CV Exam: Regular, Good Perfusion, Tachycardia ([place] Davalos B. WELDER APPRENTICE [employer]) Gastrointestinal/Abdomen GI Exam: Soft, Non-Tender, Bowel Sounds Present (Flroida Davalos B. WELDER APPRENTICE [employer]) Genitourinary Exam: Clear Urine Remarks guo ([place] Davalos B. WELDER AP[employer]ENTICE [employer]) Musculoskeletal MS Exam: Joints Intact, Normal Tone, Unable to Ambulate ([place] Davalos B. WELDER AP[employer]ENTICE [employer]) Integumentary Skin Exam: Clear, Warm, Dry, Intact ([place] Davalos B. WELDER AP[employer]ICE [employer]) Extremeties Extremities Exam: Pedal Pulses Palpable, Trace Edema ([place] Davalos B. WELDER AP[employer]ENTICE [employer]) Neurologic Neuro Exam: Awake, Moving All Extremities, Sedated ([place] Davalos B. 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 Renal function improving Non oliguric Ordered 500 mg Diuril today Follow fluid status Avoid nephrotoxic agents Repeat labs daily (2) Hypernatremia ICD Codes: E87.0 - Hyperosmolality and hypernatremia Plan: Free water via NG/OG increased to 400 Q4h today Hypotonic IVF: 1/4 NS rate increased to 150 cc/hr, cautious as there are some reports of hemolysis with high rates of 1/4 NS Thiazide diuretics Follow BMP (3) Pyrexia ICD Codes: R50.9 - Fever, unspecified Status: Acute Plan: Etiology is unclear, ID is following LP planned for today Cultures negative On cefepime and flagyl (4) Hyperglycemia ICD Codes: R73.9 - Hyperglycemia, unspecified Plan: resolving DKA On insulin gtt, continue per protocol. (5) Hypokalemia ICD Codes: E87.6 - Hypokalemia Status: Acute Plan: Improved, continue to replace as needed follow labs Plan ([place] Davalos) Plan patient was seen and examined. Agree with above assessment and plan. (Shad Schroeder MD) Problem Qualifiers (1) Pyrexia: Qualified Codes: R50.9 - Fever, unspecified [place] Davalos October 24, 2017 09:49 Shad Schroeder MD October 24, 2017 10:41
--- NOTE | 2017-10-24 09:51 | PD.PROCEDR ---
Procedure Note Procedure Lumbar Puncture Diagnosis: Acute encephalopathy Indications: Fever with acute encephalopathy Consent: Obtained Anesthesia: Fentanyl IV, lidocaine locally Description of the Procedure: The patient was placed in the supine, left lateral decubitus position. The patient was prepped and draped sterilely. 1% lidocaine was infiltrated subcutaneously. A 20g Quincke needle was inserted into the L3-4 interspace and advanced until CSF was obtained. Opening pressure was obtained. CSF was drained in 4 incremental vials. The needle was removed and a dressing was applied. The patient was returned to the supine position. Instructions were given to remain flat x 2 hours. There were no immediate complications noted. There was minimal EBL. The patient tolerated the procedure well. Opening Pressure: 26 centimeters water. However, the patient is ventilated with a peak intrathoracic pressure of 30 cm water. Amount of CSF removed: 10 mL's Findings: Clear CSF. The serum glucose at time of lumbar puncture was 130 mg/dL I personally performed the procedure. González Enriquez MD October 24, 2017 09:51
[2017-10-24] MEDS ORDERED: CHLOROTHIAZIDE SOD 500 MG VIAL IV ONE (10:00)
[2017-10-24 10:36] LABS: TOTAL PROTEIN,CSF 49.7 MG/DL (15.0-45.0)
[2017-10-24] MEDS: ACETAMINOPHEN 1000 MG/100 ML 100 ML IV PRN (10:36)
[2017-10-24 11:46] LABS: SUPERNATE COLOR TUBE #1 SLIGHTLY XANTHOCHROM (CLEAR)
[2017-10-24 11:48] LABS: CSF LYMPHOCYTES 33 %; CSF NEUTROPHILS 67 %; RBC TUBE #4 336 /MM3; WBC TUBE #4 13 /MM3 (0-10)
[2017-10-24] MEDS ORDERED: FREE WATER G-TUBE SCH (12:00)
--- NOTE | 2017-10-24 14:55 | HHI.HCPN ---
Reason for visit a. To assist with evaluation and management of symptoms including: fatigued , pain b. To assist medical decision maker(s) with: better understanding of current medical conditions; weighing benefits/burdens of medical treatment options; making medical treatment decisions. Subjective/Interval History Patient neurologically much more responsive, follows commands, and nods yes and no. Still very fatigued, and complains of being cold. He denies however any pain. I told him we have been speaking and updating your clinical status daily to your father. I ask him is that okay, and if that is your decision maker, he noded yes. RN present in the room. Pt continues to have leukocytosis. LP was done today. Family/friend interactions I spoke with patient's father and updated clinical information. Explained he is extubated, and neurologically he has improved. Updated him on his continue elevated wbc and that he still has an infection. LP was done today. Goals remains aggressive Advance Directives Durable Power of Larry Car Operator: Copy in medical record (Designates Dimitrios Castelan, but document does not arsalan Mediccal or Health Care decision making.) Objective Vital Signs Date Time Temp Pulse Resp B/P (MAP) Pulse Ox O2 Delivery O2 Flow Rate FiO2 10/24/17 14:30 40 10/24/17 14:15 94 Venturi Mask 50 10/24/17 14:13 97 Mechanical Ventilator 10/24/17 14:10 98.6 10/24/17 13:56 97 40 10/24/17 11:00 114 10/24/17 11:00 40 10/24/17 11:00 99 Mechanical Ventilator 40 10/24/17 11:00 100.2 114 24 144/81 (102) 99 160/75 (103) 10/24/17 10:47 98 40 10/24/17 10:47 40 10/24/17 10:47 40 10/24/17 08:03 98 40 10/24/17 07:00 99.8 116 35 154/77 (102) 99 166/76 (106) 10/24/17 07:00 40 10/24/17 07:00 116 10/24/17 07:00 99 Mechanical Ventilator 40 10/24/17 04:07 97 40 10/24/17 03:00 99.9 104 33 155/85 (108) 99 145/63 (90) 10/24/17 03:00 40 5/23/18 03:00 112 10/24/17 03:00 99 Mechanical Ventilator 40 10/24/17 01:10 96 40 10/23/17 23:00 98 Mechanical Ventilator 40 10/23/17 23:00 40 10/23/17 23:00 99.8 113 31 152/85 (107) 98 152/72 (98) 10/23/17 23:00 109 10/23/17 20:46 94 40 10/23/17 19:00 99.4 118 35 162/85 (110) 97 151/70 (97) 10/23/17 19:00 97 Mechanical Ventilator 40 10/23/17 19:00 40 10/23/17 19:00 118 10/23/17 17:35 95 Mechanical Ventilator 40 10/23/17 17:33 40 10/23/17 17:01 96 40 10/23/17 16:00 108 10/23/17 15:00 98.7 121 29 144/87 (106) 97 146/67 (93) Intake & Output 10/24/17 10/24/17 07:00 19:00 Intake Total 2657.7 ml 400 ml Output Total 2375 ml Balance 282.7 ml 400 ml IV Total 1510.7 ml 400 ml Tube Feeding 247 ml Other 900 ml Output Urine Total 2275 ml Stool Total 100 ml Physical Exam CONSTITUTIONAL/GENERAL: This is an adequately nourished patient, TUBES/LINES/DRAINS: ET tube, central line, A line, guo SKIN: No jaundice, rashes, or lesions. Ecchymoses on upper extremities. No wounds seen anteriorly. Skin temperature appropriate. Not diaphoretic. HEAD: Atraumatic. Normocephalic. EYES: Pupils equal and round and reactive. No scleral icterus. No injection or drainage. Fundi not examined. ENT: Nose without bleeding or purulent drainage. O2 venti mask. OP clear. NECK: Trachea midline. Supple, nontender. No palpable thyroid enlargement or nodularity. CARDIOVASCULAR: Regular rate and rhythm without murmurs, gallops, or rubs. No JVD. Peripheral pulses symmetric. RESPIRATORY/CHEST: Symmetric, unlabored respirations. No rales on auscultation. GASTROINTESTINAL: Abdomen soft, non-tender, nondistended. No hepato-splenomegaly , or palpable masses. No guarding. Bowel sounds present. GENITOURINARY: Without palpable bladder distension. Guo catheter in place. MUSCULOSKELETAL: Extremities without clubbing, cyanosis. He has 2+ edema of the extremity. LYMPHATICS: No palpable cervical or supraclavicular adenopathy. NEUROLOGICAL:responsive, moving all 4 ext. still somewhat fatigue, and may have some confusion. PSYCHIATRIC: unable to examine due to level of responsiveness. Diagnostic Tests Laboratory Laboratory Tests Test 10/21/17 16:08 10/21/17 18:25 10/21/17 19:33 10/22/17 04:45 Total Creatine Kinase 59231 U/L (39-308) 15032 U/L (39-308) Creatine Kinase MB 22.8 NG/ML (0.5-3.6) 18.0 NG/ML (0.5-3.6) Creatine Kinase MB % 0.1 % (0.0-4.0) 0.1 % (0.0-4.0) Lactic Acid Level 1.2 mmol/L (0.4-2.0) Potassium Level 4.2 MEQ/L (3.5-5.1) 4.3 MEQ/L (3.5-5.1) White Blood Count 19.9 TH/MM3 (4.0-11.0) Red Blood Count 3.33 MIL/MM3 (4.50-5.90) Hemoglobin 8.8 GM/DL (13.0-17.0) Hematocrit 25.1 % (39.0-51.0) Mean Corpuscular Volume 75.2 FL (80.0-100.0) Mean Corpuscular Hemoglobin 26.3 PG (27.0-34.0) Mean Corpuscular Hemoglobin Concent 35.0 % (32.0-36.0) Red Cell Distribution Width 15.8 % (11.6-17.2) Platelet Count 70 TH/MM3 (150-450) Mean Platelet Volume 10.1 FL (7.0-11.0) Neutrophils (%) (Auto) 83.9 % (16.0-70.0) Lymphocytes (%) (Auto) 7.1 % (9.0-44.0) Monocytes (%) (Auto) 6.6 % (0.0-8.0) Eosinophils (%) (Auto) 1.8 % (0.0-4.0) Basophils (%) (Auto) 0.6 % (0.0-2.0) Neutrophils # (Auto) 16.7 TH/MM3 (1.8-7.7) Lymphocytes # (Auto) 1.4 TH/MM3 (1.0-4.8) Monocytes # (Auto) 1.3 TH/MM3 (0-0.9) Eosinophils # (Auto) 0.4 TH/MM3 (0-0.4) Basophils # (Auto) 0.1 TH/MM3 (0-0.2) CBC Comment AUTO DIFF Differential Total Cells Counted 100 Neutrophils % (Manual) 52 % (16-70) Band Neutrophils % 32 % (0-6) Lymphocytes % 6 % (9-44) Monocytes % 6 % (0-8) Eosinophils % 3 % (0-4) Neutrophils # (Manual) 16.9 TH/MM3 (1.8-7.7) Metamyelocytes 1 % (0-1) Differential Comment FINAL DIFF MANUAL Toxic Vacuolation PRESENT (NONE SEEN) Dohle Bodies PRESENT (NONE SEEN) Platelet Estimate LOW (NORMAL) Platelet Morphology Comment ENLARGED (NORMAL) Blood Urea Nitrogen 55 MG/DL (7-18) Creatinine 2.30 MG/DL (0.60-1.30) Random Glucose 150 MG/DL (74-106) Calcium Level 7.6 MG/DL (8.5-10.1) Sodium Level 152 MEQ/L (136-145) Chloride Level 120 MEQ/L (98-107) Carbon Dioxide Level 20.6 MEQ/L (21.0-32.0) Anion Gap 11 MEQ/L (5-15) Estimat Glomerular Filtration Rate 38 ML/MIN (>89) Test 10/22/17 13:41 10/22/17 20:07 10/23/17 03:50 10/23/17 06:32 Blood Urea Nitrogen 57 MG/DL (7-18) 55 MG/DL (7-18) Creatinine 2.39 MG/DL (0.60-1.30) 2.31 MG/DL (0.60-1.30) Random Glucose 152 MG/DL (74-106) 94 MG/DL (74-106) Total Protein 5.1 GM/DL (6.4-8.2) Albumin 1.9 GM/DL (3.4-5.0) Calcium Level 7.8 MG/DL (8.5-10.1) 7.9 MG/DL (8.5-10.1) Phosphorus Level 2.4 MG/DL (2.5-4.9) Magnesium Level 2.4 MG/DL (1.5-2.5) Alkaline Phosphatase 150 U/L (45-117) Aspartate Amino Transf (AST/SGOT) 1618 U/L (15-37) Alanine Aminotransferase (ALT/SGPT) 1266 U/L (12-78) Total Bilirubin 1.0 MG/DL (0.2-1.0) Sodium Level 151 MEQ/L (136-145) 154 MEQ/L (136-145) Potassium Level 4.4 MEQ/L (3.5-5.1) 4.2 MEQ/L (3.5-5.1) Chloride Level 120 MEQ/L (98-107) 122 MEQ/L (98-107) Carbon Dioxide Level 20.4 MEQ/L (21.0-32.0) 23.5 MEQ/L (21.0-32.0) Anion Gap 11 MEQ/L (5-15) 9 MEQ/L (5-15) Total Creatine Kinase 9391 U/L (39-308) Creatine Kinase MB 12.4 NG/ML (0.5-3.6) Creatine Kinase MB % 0.1 % (0.0-4.0) Procalcitonin 9.03 ng/mL (0.00-0.08) Erythrocyte Sedimentation Rate GREATER THAN 140 mm/hr Ammonia 12 MCMOL/L (11-32) C-Reactive Protein 36.70 MG/DL (0.00-0.30) Vitamin B12 Level GREATER THAN 2000 PG/ML Rheumatoid Factor Screen NEGATIVE (NEGATIVE) Rheumatoid Factor Titer IU/ML (0.0-14.9) Anti-Nuclear Antibody Screen NEG (NEG) Rapid Plasma Reagin NON-REACTIVE (NON-REACTVE) Estimat Glomerular Filtration Rate 38 ML/MIN (>89) Random Vancomycin Level 10.8 COMMENT Blood Gas Puncture Site ART LINE Blood Gas Patient Temperature 98.6 Blood Gas HCO3 20 mmol/L (22-26) Blood Gas Base Excess -4.3 mmol/L (-2-2) Blood Gas Oxygen Saturation 96 % (90-100) Arterial Blood pH 7.34 (7.380-7.420) Arterial Blood Partial Pressure CO2 39 mmHg (38-42) Arterial Blood Partial Pressure O2 133 mmHg (61-120) Arterial Blood Oxygen Content 11.7 Vol % (12.0-20.0) Arterial Blood Carboxyhemoglobin 0.9 % (0-4) Arterial Blood Methemoglobin 1.9 % (0-2) Blood Gas Hemoglobin 8.5 G/DL (12.0-16.0) Oxygen Delivery Device VENTILATOR Blood Gas Ventilator Setting [facility]/AC Blood Gas Inspired Oxygen 40 % Test 10/23/17 14:45 10/24/17 04:51 10/24/17 09:40 Urine Color YELLOW (YELLW/STRAW) Urine Turbidity HAZY (CLEAR) Urine pH 5.0 (5.0-8.5) Urine Specific [place] 1.009 (1.002-1.035) Urine Protein TRACE mg/dL (NEG-TRACE) Urine Glucose (UA) NEG mg/dL (NEG) Urine Ketones 10 mg/dL (NEG) Urine Occult Blood MOD (NEG) Urine Nitrite NEG (NEG) Urine Bilirubin NEG (NEG) Urine Urobilinogen LESS THAN 2.0 MG/DL (LESS Urine Leukocyte Esterase NEG (NEG) Urine RBC 17 /hpf (0-3) Urine WBC 2 /hpf (0-5) Urine Squamous Epithelial Cells <1 /hpf (0-5) Urine Amorphous Sediment RARE Urine Mucus FEW /lpf (OCC) Microscopic Urinalysis Comment CATH-CULT NOT IND Sodium Level 154 MEQ/L (136-145) 154 MEQ/L (136-145) Total Creatine Kinase 3987 U/L (39-308) Creatine Kinase MB 9.3 NG/ML (0.5-3.6) Creatine Kinase MB % 0.2 % (0.0-4.0) White Blood Count 21.0 TH/MM3 (4.0-11.0) Red Blood Count 3.06 MIL/MM3 (4.50-5.90) Hemoglobin 8.1 GM/DL (13.0-17.0) Hematocrit 23.6 % (39.0-51.0) Mean Corpuscular Volume 77.0 FL (80.0-100.0) Mean Corpuscular Hemoglobin 26.4 PG (27.0-34.0) Mean Corpuscular Hemoglobin Concent 34.3 % (32.0-36.0) Red Cell Distribution Width 15.9 % (11.6-17.2) Platelet Count 178 TH/MM3 (150-450) Mean Platelet Volume 10.0 FL (7.0-11.0) CBC Comment AUTO DIFF Differential Total Cells Counted 100 Neutrophils % (Manual) 39 % (16-70) Band Neutrophils % 21 % (0-6) Lymphocytes % 13 % (9-44) Monocytes % 13 % (0-8) Eosinophils % 2 % (0-4) Neutrophils # (Manual) 15.1 TH/MM3 (1.8-7.7) Metamyelocytes 9 % (0-1) Myelocytes 3 % (0-0) Nucleated Red Blood Cells 12 /100 WBC (0-0) Differential Comment FINAL DIFF MANUAL Toxic Granulation 2+ (NORMAL) Platelet Estimate NORMAL (NORMAL) Platelet Morphology Comment CLUMPED (NORMAL) Target Cells 1+ (NORMAL) Blood Urea Nitrogen 53 MG/DL (7-18) Creatinine 2.15 MG/DL (0.60-1.30) Random Glucose 123 MG/DL (74-106) Calcium Level 8.1 MG/DL (8.5-10.1) Potassium Level 3.8 MEQ/L (3.5-5.1) Chloride Level 120 MEQ/L (98-107) Carbon Dioxide Level 21.8 MEQ/L (21.0-32.0) Anion Gap 12 MEQ/L (5-15) Estimat Glomerular Filtration Rate 41 ML/MIN (>89) CSF Volume (Tube 1) 4.0 ML CSF Supernatant Color (tube 1) SLIGHTLY XANTHOCHROM CSF Gross Blood (Tube 1) 1+ (0) CSF Volume (Tube 2) 2.0 ML CSF Supernatant Color (tube 2) SLIGHTLY XANTHOCHROM CSF Gross Blood (Tube 2) 0 (0) CSF Volume (Tube 3) 2.5 ML CSF Supernatant Color (tube 3) SLIGHTLY XANTHOCHROM CSF Gross Blood (Tube 3) TRACE (0) CSF Volume (Tube 4) 2.0 ML CSF Supernatant Color (tube 4) SLIGHTLY XANTHOCHROM CSF Gross Blood (Tube 4) TRACE (0) CSF WBC (Tube 4) 13 /MM3 (0-10) CSF RBC (Tube 4) 336 /MM3 (NONE) CSF Neutrophils 67 % CSF Lymphocytes 33 % CSF Glucose 94 MG/DL (40-80) CSF Total Protein 49.7 MG/DL (15.0-45.0) Result Diagram: 10/24/17 0451 10/24/17 0451 Microbiology Microbiology Date/Time Source Procedure Growth Status 10/22/17 17:17 Blood Peripheral Aerobic Blood Culture - Preliminary NO GROWTH IN 2 DAYS Resulted 10/22/17 17:17 Blood Peripheral Anaerobic Blood Culture - Preliminary NO GROWTH IN 2 DAYS Resulted 10/22/17 17:08 Blood Peripheral Aerobic Blood Culture - Preliminary NO GROWTH IN 2 DAYS Resulted 10/22/17 17:08 Blood Peripheral Anaerobic Blood Culture - Preliminary NO GROWTH IN 2 DAYS Resulted 10/24/17 09:40 Cerebral Spinal Fluid Lumbar Puncture Acid Fast Stain Pending Received 10/24/17 09:40 Cerebral Spinal Fluid Lumbar Puncture Mycobacterial Culture Pending Received 10/24/17 09:40 Cerebral Spinal Fluid Lumbar Puncture Gram Stain - Final Resulted 10/24/17 09:40 Cerebral Spinal Fluid Lumbar Puncture CSF Culture Pending Resulted 10/22/17 18:15 Sputum Endotracheal Gram Stain - Final Complete 10/22/17 18:15 Sputum Endotracheal Sputum Culture - Final HEAVY GROWTH NORMAL RESPIRATORY SAAD Complete Imaging Last Impressions Chest X-Ray 10/24/17 0600 Signed Impressions: CONCLUSION: Gall Bladder Ultrasound 10/23/17 0000 Signed Impressions: CONCLUSION: Renal Ultrasound 10/19/17 0000 Signed Impressions: Service Date/Time: Thursday, October 19, 2017 09:46 - CONCLUSION: Normal examination. Alexx Baig MD Procedures Intubation 10/18. Central line placed 10/18. A line placement 10/19. Assessment and Plan Disease Oriented Problem List: (1) Sepsis (2) Arrhythmia Comment: V-Tach then cardiac arrest. (3) Lactic acidosis (4) Acute kidney injury (5) Acute encephalopathy (6) Acute respiratory failure Comment: bilateral pulmonary infiltrates (7) Hyperglycemia Symptom Scale: (1) Fatigue 0-10 Scale: Unable to quantify (2) Pain 0-10 Scale: 0 Pertinent Non-Medical Issues Psychosocial:recently in alf. He served in the [employer]. On disability Spiritual: unknown Legal: POA did not give power for health care decision making to pt's cousin. His children daughter and son has not been reasonable reachable. Health care proxy is pt's Father Geovani Palomo. Ethical issues impacting care:none Important Contacts Geovani Palomo Sr [phone] We have made several attempts to contact pt's son and daughter and they have not been reasonably reachable. His adult Children Christofer Ryan and Arin Ryan has been estranged from patient Christofer Palomo [phone] (son) Dimitrios Castelan(cousin) [phone] and [phone] POA but only financial. Heather (aunt) [phone] Adali Castelan (cousin) [phone] Denise Gould (significant other).[phone] Prognosis 42 year old male with came in with sepsis- with respiratory failure, hyperglycemia with dka, hypokalemia. On 10/19 coded V-tach . Prognosis is guarded and still remains critical, but pt clinical condition has improved. Code Status: Full Code Plan ==Code= full. == capacity to make medical decision- much more responsive, but fatigue. I suspect he will regain capacity to make medical decision. I suspect he can be involve in decision making, but still pt's father needs to be involved. == Health Care decision maker: I have called pt's son Christofer Palomo and left voicemail yesterday and today, and he has not called back. Health care proxy is pt's father Geovani Palomo Sr. == Symptoms- Pain- underwent cpr, intubated. Fentanyl prn.. Anxiety- associated with pt's critical condition. pt neurologically improved, no new med rec for now. ==Goals of Treatment : Aggressive. == Palliative Care will continue to follow, make recommendations for symptoms, review goals of care. Attestation To help prompt me to consider important information that might be impacting today's encounter and assessment, information from prior notes written by myself or my colleagues may have been "brought forward" into today's note. My signature on this note, however, is an attestation that I personally performed the exam, history, and/or decision-making noted today, and, unless otherwise indicated, the interactions with patient, family, and staff as well as the review of records all occurred today. I also attest that the listed assessment and stated plan reflect my best clinical judgment today based on the combination of historical information, prior notes, and today's exam/ interactions. When time spent is documented, it refers only to time spent today by the signer, or if indicated, combined time spent today by collaborating physician/nurse practitioner. Paresh Khan MD October 24, 2017 14:55
[2017-10-24 17:44] LABS: ALBUMIN 1.8 GM/DL (3.4-5.0); ALT (GPT) 575 U/L (12-78); AST (GOT) 301 U/L (15-37); BICARBONATE 20.9 MEQ/L (21.0-32.0); BLOOD UREA NITROGEN 48 MG/DL (7-18); CALCIUM 7.9 MG/DL (8.5-10.1); CHLORIDE 117 MEQ/L (98-107); GLOMERULAR FILTRATION RATE 45 ML/MIN (>89); GLUCOSE,RANDOM 153 MG/DL (74-106); MAGNESIUM 2.6 MG/DL (1.5-2.5); SODIUM (NA) 151 MEQ/L (136-145)
[2017-10-24 17:58] LABS: ALKALINE PHOSPHATASE 238 U/L (45-117); TOTAL BILIRUBIN ADULT 0.7 MG/DL (0.2-1.0); TOTAL PROTEIN 5.3 GM/DL (6.4-8.2)
--- NOTE | 2017-10-24 18:32 | RADRPT ---
EXAM DATE: 10/24/2017 6:25 PM EDT AGE/SEX: 42 years / Male INDICATIONS: Altered mental status CLINICAL DATA: This is the patient's initial encounter. Patient reports that signs and symptoms have been present for 1 day and indicates a pain score of 0/10. MEDICAL/SURGICAL HISTORY: Hypertension. None. RADIATION DOSE: 42.96 CTDI (mGy) ; Patient motion COMPARISON: No prior [place] exams available for comparison. TECHNIQUE: CT of the head without contrast. Using automated exposure control and adjustment of the mA and/or kV according to patient size, radiation dose was kept as low as reasonably achievable to ob tain optimal diagnostic quality images. FINDINGS: Cerebrum: The ventricles are normal for age. No evidence of midline shift, mass lesion, hemorrhage o r acute infarction. No extraaxial fluid collections are seen. Posterior Fossa: The cerebellum and brainstem are intact. The 4th ventricle is midline. The cerebe llopontine angle is unremarkable. Extracranial: The visualized portion of the orbits is intact. Mild mucosal periosteal thickening in the ethmoid air cells. Skull: The calvaria is intact. No evidence of skull fracture. CONCLUSION: 1. No acute intracranial abnormality. Electronically signed by: Radames Aguilar MD 10/24/2017 6:31 PM EDT
[2017-10-24] MEDS: INSULIN ASPART SUPPLEMENTAL SCALE SQ SCH (21:00)
[2017-10-24] MEDS ORDERED: DEXTROSE 50% IN WATER 50 ML VIAL(D50) IV PUSH PRN (21:00)
[2017-10-24] MEDS ORDERED: GLUCAGON 1 MG/ML VIAL OTHER PRN (21:00)
[2017-10-25] VITALS (8 sets, daily range): BP systolic 128–179; BP diastolic 59–78; PULSE 94–118; RESP 24–31; TEMP 98.5–100.6; O2SAT 91–99
[2017-10-25] MEDS: INSULIN ASPART SUPPLEMENTAL SCALE SQ SCH ×6 (00:16→21:01)
[2017-10-25] MEDS: CHLORHEXIDINE GLUCONATE 2 % 1 PACK (2 CLOTHS) TOP SCH (01:38)
[2017-10-25] MEDS: ARTIFICIAL TEARS OPTH SOLN 15 ML BTL EACH EYE SCH ×3 (06:00→21:01)
[2017-10-25] MEDS: SODIUM CHLORIDE 23.4% INJ 38.5 MEQ in WATER STERILE FOR INJ 1,000 ML IV SCH ×3 (06:25→21:42)
[2017-10-25] MEDS: metroNIDAZOLE 500 MG INJ 100 ML IV SCH (06:25)
[2017-10-25] MEDS: CEFEPIME INJ 2,000 MG in SODIUM CHLORIDE 0.9% INJ 100 ML IV SCH ×3 (06:26→19:39)
[2017-10-25] MEDS: MORPHINE SULFATE 4 MG/ML INJ IV PUSH PRN (06:26)
[2017-10-25] MEDS: CHLORHEXIDINE 0.12% (ORAL KIT) 15 ML CUP MT SCH ×2 (08:00→20:00)
--- NOTE | 2017-10-25 08:09 | HHI.IDPN ---
Subjective Subjective Remarks Patient is a 42-year-old male, brought into the hospital for evaluation of multiple symptoms. He apparently has been having problem with poor p.o. intake , and thirst and increasing fluid intake. There is also mention that he has had problem with nausea and vomiting and some confusion. The symptoms have been going on for about a month. Was brought into the emergency room, and he was found to have a blood sugar of 1800, creatinine was up to 3, sodium 21, and he has multiple abnormal electrolytes. He also had acidosis, and high fevers. His white count was elevated. In the ED he became more unresponsive, and he ended up getting intubated. He was initially on pressors. He was also found to have a very elevated CPK. His electrolytes stabilized, and his acidosis improved. Creatinine improved, and he has improvement in his urine output. He had 2 blood cultures done and those are negative. He was started on empiric antibiotics for possible aspiration. Initial urinalysis was unremarkable. Patient remains on the vent. His mental status still has not improved. Neurology has been consulted. Patient's temperatures seem to have improved. His chest x-ray showing bilateral pulmonary infiltrates and some nodular infiltrates. He has been getting vancomycin, cefepime, and Flagyl. His CPKs are still elevated, and his LFTs were also elevated. Patient also during his hospitalization had episode of V. tach and was resuscitated successfully. Infectious disease consultation has been requested to evaluate patient with high fevers. Notes reviewed D/W RM Temps low grade BP ok Has been extubated yesterday On FM, desats very easily He is awake and alert, up in chair C/O pain in rectal, area NO abdominal paian Not SOB No CP Has a weak cough No N/V; swallowing ok Sputum C/S normal resp radha CSF, mild pleocytosis, (+) RBC, glucose ok, sl elevated protein CT head no contrast negative Antibiotics Cefepime Flagyl Current Medications Medications (Trade) Dose Ordered Sig/Jacky Route Start Time Stop Time Status Last Admin (NS Flush) 2 ml UNSCH PRN IV FLUSH 10/19/17 02:30 (NS Flush) 2 ml BID IV FLUSH 10/19/17 09:00 10/24/17 21:36 (Morphine Inj) 2 mg Q2H PRN IV PUSH 10/19/17 02:30 10/25/17 06:26 (Albuterol Neb) 2.5 mg Q2HR NEB PRN INH 10/19/17 02:30 10/24/17 08:36 ([facility] Nursing Information) 1 Q361D XX 10/19/17 02:30 10/19/17 02:30 (Chlorhexidine 2% Cloth) Taper DAILY@04 TOP 10/19/17 04:00 10/15/18 03:59 10/24/17 04:00 (Chlorhexidine 2% Cloth) 3 pack UNSCH PRN TOP 10/19/17 02:30 (Candace-Colace) 1 tab BID PO 10/19/17 09:00 10/23/17 20:33 (Milk Of Magnesia Liq) 30 ml Q12H PRN PO 10/19/17 02:30 (Senokot) 17.2 mg Q12H PRN PO 10/19/17 02:30 (Dulcolax Supp) 10 mg DAILY PRN RECTAL 10/19/17 02:30 (Zofran Odt) 4 mg Q6H PRN PO 10/19/17 02:30 (Protonix Inj) 40 mg BID IV PUSH 10/19/17 09:00 10/24/17 21:36 (Tears Naturale Opth Soln) 1 drop Q8HR EACH EYE 10/19/17 06:00 10/25/17 06:00 (Peridex 0.12% Liq) 15 ml BID@08,20 MT 10/19/17 08:00 10/24/17 08:17 Acetaminophen 100 ml @ 400 mls/hr Q8H PRN IV 10/19/17 03:30 10/24/17 10:36 Metronidazole 100 ml @ 100 mls/hr Q6H IV 10/19/17 04:00 10/25/17 06:25 (Glucagon Inj) 1 mg UNSCH PRN OTHER 10/19/17 04:15 (Brethine Inj) 1 mg UNSCH PRN SQ 10/19/17 07:45 (D50w (Vial) Inj) 50 ml UNSCH PRN IV PUSH 10/19/17 23:30 10/23/17 05:24 Sodium Chloride 38.5 meq/Sterile Water 1,009.625 ml @ 150 mls/hr Q6H44M IV 10/22/17 14:00 10/25/17 06:25 (Norvasc) 5 mg DAILY PO 10/23/17 09:00 10/24/17 08:32 (Lactulose Liq) 30 ml DAILY PRN PO 10/23/17 21:30 (D50w (Vial) Inj) 50 ml UNSCH PRN IV PUSH 10/24/17 21:00 (Glucagon Inj) 1 mg UNSCH PRN OTHER 10/24/17 21:00 (NovoLOG SUPPLEMENTAL SCALE) 1 Q4HR SQ 10/24/17 21:00 10/25/17 06:26 Lines Line no evidence of infection Past Medical History Depression/anxiety Hypertension NSAID use Allergies: Coded Allergies: No Known Allergies (Unverified Allergy, Unknown, 10/18/17) Objective . Vital Signs Date Time Temp Pulse Resp B/P (MAP) Pulse Ox O2 Delivery O2 Flow Rate FiO2 10/25/17 05:30 96 Aerosol Mask 6.00 40 10/25/17 05:20 94 Aerosol Mask 10.00 40 10/25/17 03:00 94 Simple Mask 6.00 50 10/25/17 03:00 99.3 112 24 179/71 (107) 91 10/25/17 03:00 118 10/24/17 23:00 99.4 108 22 162/86 (111) 94 Arterial Line 10/24/17 23:00 94 Simple Mask 6.00 50 10/24/17 23:00 116 10/24/17 19:00 98.9 109 22 156/80 (105) 94 158/71 (100) 10/24/17 19:00 107 10/24/17 19:00 94 Simple Mask 6.00 50 10/24/17 18:10 97 10/24/17 16:00 97 Simple Mask 8.00 10/24/17 15:00 100 10/24/17 15:00 98 Venturi Mask 50 10/24/17 15:00 98.6 102 28 158/79 (105) 96 166/67 (100) 10/24/17 14:30 40 10/24/17 14:15 94 Venturi Mask 50 10/24/17 14:13 97 Mechanical Ventilator 10/24/17 14:13 97 Nasal Cannula 5 10/24/17 14:10 98.6 10/24/17 13:56 97 40 10/24/17 11:00 114 10/24/17 11:00 40 10/24/17 11:00 99 Mechanical Ventilator 40 10/24/17 11:00 100.2 114 24 144/81 (102) 99 160/75 (103) 10/24/17 10:47 98 40 10/24/17 10:47 40 10/24/17 10:47 40 . Laboratory Tests Test 10/24/17 04:51 White Blood Count 21.0 TH/MM3 Red Blood Count 3.06 MIL/MM3 Hemoglobin 8.1 GM/DL Hematocrit 23.6 % Mean Corpuscular Volume 77.0 FL Mean Corpuscular Hemoglobin 26.4 PG Mean Corpuscular Hemoglobin Concent 34.3 % Red Cell Distribution Width 15.9 % Platelet Count 178 TH/MM3 Mean Platelet Volume 10.0 FL CBC Comment AUTO DIFF Differential Total Cells Counted 100 Neutrophils % (Manual) 39 % Band Neutrophils % 21 % Lymphocytes % 13 % Monocytes % 13 % Eosinophils % 2 % Neutrophils # (Manual) 15.1 TH/MM3 Metamyelocytes 9 % Myelocytes 3 % Nucleated Red Blood Cells 12 /100 WBC Differential Comment FINAL DIFF MANUAL Toxic Granulation 2+ Platelet Estimate NORMAL Platelet Morphology Comment CLUMPED Target Cells 1+ Laboratory Tests Test 10/23/17 14:45 10/24/17 04:51 10/24/17 16:43 Sodium Level 154 MEQ/L 154 MEQ/L 151 MEQ/L Total Creatine Kinase 3987 U/L 2996 U/L Creatine Kinase MB 9.3 NG/ML 8.1 NG/ML Creatine Kinase MB % 0.2 % 0.3 % Blood Urea Nitrogen 53 MG/DL 48 MG/DL Creatinine 2.15 MG/DL 2.00 MG/DL Random Glucose 123 MG/DL 153 MG/DL Calcium Level 8.1 MG/DL 7.9 MG/DL Potassium Level 3.8 MEQ/L 3.6 MEQ/L Chloride Level 120 MEQ/L 117 MEQ/L Carbon Dioxide Level 21.8 MEQ/L 20.9 MEQ/L Anion Gap 12 MEQ/L 13 MEQ/L Estimat Glomerular Filtration Rate 41 ML/MIN 45 ML/MIN Total Protein 5.3 GM/DL Albumin 1.8 GM/DL Phosphorus Level 3.0 MG/DL Magnesium Level 2.6 MG/DL Alkaline Phosphatase 238 U/L Aspartate Amino Transf (AST/SGOT) 301 U/L Alanine Aminotransferase (ALT/SGPT) 575 U/L Total Bilirubin 0.7 MG/DL Microbiology Date/Time Source Procedure Growth Status 10/22/17 17:17 Blood Peripheral Aerobic Blood Culture - Preliminary NO GROWTH IN 2 DAYS Resulted 10/22/17 17:17 Blood Peripheral Anaerobic Blood Culture - Preliminary NO GROWTH IN 2 DAYS Resulted 10/22/17 17:08 Blood Peripheral Aerobic Blood Culture - Preliminary NO GROWTH IN 2 DAYS Resulted 10/22/17 17:08 Blood Peripheral Anaerobic Blood Culture - Preliminary NO GROWTH IN 2 DAYS Resulted 10/24/17 09:40 Cerebral Spinal Fluid Lumbar Puncture Acid Fast Stain Pending Received 10/24/17 09:40 Cerebral Spinal Fluid Lumbar Puncture Mycobacterial Culture Pending Received 10/24/17 09:40 Cerebral Spinal Fluid Lumbar Puncture Gram Stain - Final Resulted 10/24/17 09:40 Cerebral Spinal Fluid Lumbar Puncture CSF Culture Pending Resulted 10/22/17 18:15 Sputum Endotracheal Gram Stain - Final Complete 10/22/17 18:15 Sputum Endotracheal Sputum Culture - Final HEAVY GROWTH NORMAL RESPIRATORY RADHA Complete Imaging Last 72 hours Impressions Chest X-Ray 10/24/17 0600 Signed Impressions: CONCLUSION: No significant change. Bilateral pulmonary opacities remain. Head CT 10/24/17 Signed Impressions: CONCLUSION: 1. No acute intracranial abnormality. Gall Bladder Ultrasound 10/23/17 Signed Impressions: CONCLUSION: 1. There is increased echogenicity of the liver suggestive of fatty infiltrati on and/or hepatocellular disease. 2. No evidence of gallstones or biliary tract obstruction. Chest X-Ray 10/23/17 Signed Impressions: CONCLUSION: Scattered bilateral pulmonary infiltrates. Last Impressions Gall Bladder Ultrasound 10/23/17 Signed Impressions: CONCLUSION: Chest X-Ray 10/23/17 Signed Impressions: CONCLUSION: Scattered bilateral pulmonary infiltrates. Renal Ultrasound 10/19/17 Signed Impressions: Service Date/Time: Thursday, October 19, 2017 09:46 - CONCLUSION: Normal examination. Alexx Baig MD Physical Exam GENERAL: Awake and alert, up in chair, weak, NAD, on FM. SKIN: Cool and dry. No generalized rash. HEAD: Atraumatic. Normocephalic. No temporal wasting, or tenderness. EYES: Brainard conjunctiva. No petechia or hemorrhage. Pupils unequal, round, L larger than R. Has dirty sclera. EARS, NOSE AND THROAT: Nose without bleeding or purulent nasal discharge. Moist mucosa NECK: Trachea midline. Supple and not tender, no meningeal signs CARDIOVASCULAR: Regular rate and rhythm. No murmurs, rubs or gallops heard RESPIRATORY: Decreased BS at bases ABDOMEN: Distended, not tender, not guarding, bowel sounds present and hypoactive. EXTREMITIES: Warm, has pitting edema NEUROLOGICAL: Grossly non-focal PSYCHIATRIC: Calm and cooperative : Chiang catheter in place, urine looks clear. 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
[2017-10-25] MEDS ORDERED: VANCOMYCIN INJ 1,000 MG in SODIUM CHLOR 0.9% 250 ML INJ 250 ML IV ONE (08:15)
[2017-10-25] MEDS: SODIUM CHLORIDE 0.9% FLUSH 10 ML FLUSH IV FLUSH SCH ×2 (08:22→19:39)
[2017-10-25] MEDS: amLODIPine BESYLATE 5 MG TAB PO SCH (08:22)
[2017-10-25] MEDS: PANTOPRAZOLE SODIUM 40 MG VIAL IV PUSH SCH ×2 (08:22→19:40)
[2017-10-25] MEDS: DOCUSATE SODIUM 50 MG/SENNA 8.6 MG TAB PO SCH ×2 (08:24→19:40)
[2017-10-25 08:26] LABS: HSV 1,PCR Negative (Negative)
--- NOTE | 2017-10-25 09:53 | HHI.CCPN ---
Subjective Remarks/Hospital Course This is a 42-year-old AA male. Date of admission 10/19/2017. Past medical history includes depression, hypertension. Patient has no known history of diabetes mellitus but has multiple family members with this diagnosis. Over the past month, patient has been experiencing these sequelae of thirst, diminished appetite. Patient was in [facility] until recently and has not had his blood sugar checked according to his sister. He denies any sick contacts. Since being released from [facility], patient has been relatively noncompliant with his home medications due to underlying nausea/vomiting and delirium. Patient was drinking copious amounts of fluids at home. Due to his underlying illness is's family convinced him to come to the hospital for further evaluation treatment today. Name Efraín, patient noted to have a blood sugar 1800. Acute kidney injury creatinine of around 3. Sodium 121. Multiple electrolyte and mellitus and elevated ammonia level. Patient originally presented with fever around 105 to his facility. Received 4 mg of cyproheptadine per ED physician first possible serotonin syndrome. He received ice to fluid/water and acetaminophen/NSAIDs and his blood sugars currently subsiding. Patient became more unresponsive in the ED intervention was intubated with central line placed by ED physician. 10/19:The patient went into V. tach at approximately 0720 am. ACLS protocol instituted. Insulin infusion discontinued. 12-lead EKG obtained, stat VBG obtained. 1 g calcium chloride given to stabilize membrane. The patient was defibrillated 1 prior to my arrival and the scene. The patient was given 50 mEq of potassium orally, as well as 20 meq.'s IV.ROSC returned at 0 750. Attempts made to contact family unsuccessful, palliative care consulted to define healthcare POA surrogacy. Repletion of electrolytes per ICU protocol , serial labs continues. Patient awakened post ROSC noted to have spontaneous eye opening movement of extremities 4 but not following commands. Arterial line placed, the patient continues on Levophed and phenylephrine infusion to maintain MAP. The patient was noted to have a significant respiratory acidosis , initial CO2 96, rate was increased at 6 AM subsequent CO2 67 with pH 6.97. Ventilatory rate increased, sodium bicarbonate 1 amp 4 bicarb level is 16.3 given. 10/20: The patient continues intermittently on a cooling blanket. EEG was performed which revealed moderate to severe encephalopathy. When the patient was off sedation spontaneous eye opening no tracking no movement of extremities. No further episodes of V. tach during the night. Potassium was aggressively repleted yesterday, nephrology was consulted regarding elevated creatinine in the setting of hypokalemia. Sodium bicarbonate infusion was instituted , now with resolution of metabolic acidosis .The patient's blood glucose continue to trend upward during the night the patient was placed on a non-DKA insulin infusion, currently at 4 units/hour. The patient continues to require vasopressors and currently on 3 to maintain map greater than 65. The patient is urinary output overnight for 12 hours was approximately 1300 cc. No significant elevation in temperature during the night recorded 100.0 10/21: electrolyte disturbances improving. afebrile. still encephalopathic and not arousing appropriately. initiated SBTs today but patient became severely tachypneic. 10/22: encephalopathy persists. platelet count improving, but too low for LP. electrolyte abn persists, but continue to slowly improve. 10/23: Remains intubated sedated with fentanyl. Remains tachycardic, encephalopathy. Opens his eyes to verbal stimulation. Appears to track. Slight withdrawal to pain but no spontaneous movements or following commands. Sodium remains elevated at 154, increase 1/4 normal saline to 100 mL/h. no fever last 24 hours 10/24: although patient is technically afebrile, he still requires continuous cooling blanket to prevent fevers. wbc still uptrending. now following commands. although neuro exam has improved, persistent fevers are concerning, and with platelet count now >100k, risk of LP minimal. will obtain CSF for additional information today. electrolyte abnormalities persist and we are aggressively treating these. 10/25: Extubated yesterday, tolerating well resp chan. Low grade fever persists. CT chest ordered by Dr. Sanchez ID evaluate nodular infiltrate. Started Levemir 5 units every 12 continue every 4 hours sliding scale. LP performed yesterday showed xanthochromia, HSV negative, CT of the head negative for acute findings. Patient is oriented to person and place Objective Vital Signs Date Time Temp Pulse Resp B/P (MAP) Pulse Ox O2 Delivery O2 Flow Rate FiO2 10/25/17 07:00 100.6 109 30 151/78 (102) 95 10/25/17 07:00 Aerosol Mask 9.00 40 Intake and Output 10/25/17 10/25/17 10/26/17 08:00 16:00 00:00 Intake Total 1598 ml Output Total 2470 ml Balance -872 ml Result Diagram: 10/24/17 0451 10/24/17 1643 Other Results Microbiology Date/Time Source Procedure Growth Status 10/22/17 18:15 Sputum Endotracheal Gram Stain - Final Complete 10/22/17 18:15 Sputum Endotracheal Sputum Culture - Final HEAVY GROWTH NORMAL RESPIRATORY SAAD Complete Imaging Last Impressions Chest X-Ray 10/19/17252 Signed Impressions: Service Date/Time: Thursday, October 19, 2017 02:56 - CONCLUSION: 1. Bilateral pulmonary infiltrates. Dennis Claire Jr., MD Renal Ultrasound 10/19/17 0000 Signed Impressions: Service Date/Time: Thursday, October 19, 2017 09:46 - CONCLUSION: Normal examination. Alexx Baig MD Last Impressions Chest X-Ray 10/19/17252 Signed Impressions: Service Date/Time: Thursday, October 19, 2017 02:56 - CONCLUSION: 1. Bilateral pulmonary infiltrates. Dennis Claire Jr., MD Objective Remarks GENERAL: 42-year-old AA male sitting up in chair, communicative SKIN: Warm and dry. Multiple tattoos HEAD: Atraumatic. Normocephalic. EYES: Pupils equal and round about 2 mm bilaterally and reactive no scleral icterus. No injection or drainage. ENT: No nasal bleeding or discharge. Mucous membranes pink and moist. NECK: Trachea midline. No JVD. CARDIOVASCULAR: Tachycardic, RR. Slightly hypertensive RESPIRATORY: Diminished breath sounds. Air entry equal bilaterally. No wheezing appreciated. GASTROINTESTINAL: Abdomen soft, non-tender, nondistended. no guarding. MUSCULOSKELETAL: Extremities without significant pitting edema. No obvious deformities. NEUROLOGICAL: Sitting up in chair alert awake oriented no focal deficits follows commands 4 Date of Insertion: October 19, 2017 A/P Problem List: (1) Hypokalemia ICD Code: E87.6 - Hypokalemia Status: Acute (2) Acute respiratory failure ICD Code: J96.00 - Acute respiratory failure, unspecified whether with hypoxia or hypercapnia (3) Lactic acidosis ICD Code: E87.2 - Acidosis Status: Acute (4) Hypermagnesemia ICD Code: E83.41 - Hypermagnesemia (5) Pyrexia ICD Code: R50.9 - Fever, unspecified Status: Acute (6) Hyponatremia ICD Code: E87.1 - Hypo-osmolality and hyponatremia Status: Acute (7) Leukocytosis ICD Code: D72.829 - Elevated white blood cell count, unspecified Status: Acute (8) Hypophosphatemia ICD Code: E83.39 - Other disorders of phosphorus metabolism Status: Acute (9) Ketoacidosis due to secondary diabetes ICD Code: E13.10 - Other specified diabetes mellitus with ketoacidosis without coma Status: Acute (10) Acute kidney injury ICD Code: N17.9 - Acute kidney failure, unspecified Status: Acute (11) Acute encephalopathy ICD Code: G93.40 - Encephalopathy, unspecified Status: Acute (12) BMI 37.0-37.9, adult ICD Code: Z68.37 - Body mass index (BMI) 37.0-37.9, adult Status: Acute Assessment and Plan Assessment: 42yM with severe life-threatening electrolyte abnormalities and acute encephalopathy. remains critically ill but improving. continue supportive care. Unable to obtain MRI secondary to metal in chest. LP showed xanthochromia. hyperthermia persists requiring continuous cooling blanket and wbc continues to uptrend. Clinically improving with improving mental status Neuro/Psych: Acute toxic metabolic encephalopathy Depression/anxiety DC all continuous sedation. Use as needed morphine. Neurological exam is significantly improved CT head negative, MRI pending. LP showed xanthochromia, HSV negative 10/19 EEG-moderate to severe encephalopathy. Neurology Dr. Solis Holding Quetiapine 100 mg daily, divalproex 250 mg daily and buspirone 10 mg p.o. 3 times daily/home medication along with hydroxyzine 10 mg p.o. 3 times daily Patient did received cyproheptadine 4 mg 1 for possible serotonin syndrome by ED physician Holding buspirone 10 mg daily, divalproex 250 mg daily/check level and ketamine 100 mg p.o. daily. CV: Severe sepsis Lactic acidosis- resolved History of essential hypertension Holding home medication of amlodipine/benazepril 10/20 1 tablet daily and lisinopril 20 mg p.o. 2x daily in light of hypotension Off vasopressors. started back on amlodipine 5 mg daily, increase to 10 mg daily Add Coreg 3.125 mg BID Resp: Acute hypoxic and hypercarbic respiratory failure Mixed acidosis- resolved Extubated 10/24/2017, tolerating well, currently on aerosol mask. Sat >92% Albuterol/ipratropium aerosols every 6 hours with albuterol aerosols every 2 hours as needed dyspnea EzPAP, Acapella GI: Possible upper GI bleed. Hypoalbuminemia ADA diet Pantoprazole for GI prophylaxis Docusate sodium/senna 1 tablet twice daily for bowel regimen Lactulose 30 cc twice daily. Ammonia level was elevated.but normalized : DC Chiang catheter in next 24 hours Endo: Acute hyperglycemic state Ketoacidosis Currently on q4h SSI. Add Levemir 5 U q12h 10/19 Hemoglobin A1c-13 10/19 lipid panel-triglycerides 208 Renal: Acute kidney injury Hypernatremia Monitor urine output Accurate I's and O's Continue 06/07 NS to 100 ml per hour CMP today pending Heme: Leukocytosis Normocytic anemia Thrombocytopenia- improving. Monitor CBC daily. Follow trends 4t score: low probability for HIT. likely consumption. 178 10/24 ID: Currently in cefepime and vancomycin. Metronidazole dcd by ID CT chest ordered for to evaluate nodular infiltrate Blood cultures 2, sputum, urine, influenza all ordered: NGTD. LP Gram stain negative, xanthochromia present MRI brain today ID Dr. Sanchez Procalcitonin 9.03 indicating probable infectious etiology FEN: Hypokalemia Hypophosphatemia Hypermagnesemia Replace electrolytes as clinically indicated. Currently on hypotonic saline to correct sodium Monitor serial electrolyte levels MSK: Elevated BMI of 37 PT evaluate and treat Access -piv's Prophylaxis GI -pantoprazole -DVT -SCD/holding pharmacological prophylaxis with possible upper GI bleed, thrombocytopenia: start Lovenox if MRI brain negative Critical Care: Level 3 Problem Qualifiers (1) Acute respiratory failure: Qualified Codes: J96.01 - Acute respiratory failure with hypoxia; J96.02 - Acute respiratory failure with hypercapnia (2) Pyrexia: Qualified Codes: R50.9 - Fever, unspecified Radha Valdes MD October 25, 2017 09:53
[2017-10-25] MEDS: CARVEDILOL 3.125 MG TAB PO SCH ×2 (10:23→19:39)
[2017-10-25] MEDS: INSULIN DETEMIR 100 UNITS/ML VIAL SQ SCH ×2 (10:24→19:57)
[2017-10-25 10:40] LABS: CF EBV DNA PCR RESULT Negative (Negative); CF EBV SPEC SOURCE CSF; CMV DNA QUANT BY RAPID PCR Negative (Negative); CMV PCR SPECIMEN SOURCE CSF
[2017-10-25 10:41] LABS: HEMATOCRIT 23.8 % (39.0-51.0); HEMOGLOBIN 7.9 GM/DL (13.0-17.0); MEAN CELL VOLUME 77.5 FL (80.0-100.0); MEAN CORPUSCULAR HEMOGLOBIN 25.8 PG (27.0-34.0); MEAN CORPUSCULAR HGB CONC 33.3 % (32.0-36.0); MEAN PLATELET VOLUME 10.4 FL (7.0-11.0); PLATELET COUNT 213 TH/MM3 (150-450); RED BLOOD COUNT 3.06 MIL/MM3 (4.50-5.90); RED CELL DISTRIBUTION WIDTH 16.6 % (11.6-17.2); WHITE BLOOD COUNT 28.1 TH/MM3 (4.0-11.0)
--- NOTE | 2017-10-25 10:42 | HHI.NPPN ---
Subjective General Problems: Edema Renal Failure: Acute Interval History Extubated. Awake and alert. Labs from today are available however last evening his renal function and sodium had improved. ([place] Dav[place]os) Review of Systems General Constitutional: Fatigue ([place]) Respiratory Lungs: SOB ([place]) Cardiovascular Cardiac: Edema ([place]) Endocrine Endocrine: Thirst ([place]) Objective Data Data Vital Signs Date Time Temp Pulse Resp B/P (MAP) Pulse Ox O2 Delivery O2 Flow Rate FiO2 10/25/17 07:00 100.6 109 30 151/78 (102) 95 10/25/17 07:00 95 Aerosol Mask 9.00 40 10/25/17 07:00 109 10/25/17 05:30 96 Aerosol Mask 6.00 40 10/25/17 05:20 94 Aerosol Mask 10.00 40 10/25/17 03:00 94 Simple Mask 6.00 50 10/25/17 03:00 99.3 112 24 179/71 (107) 91 10/25/17 03:00 118 10/24/17 23:00 99.4 108 22 162/86 (111) 94 Arterial Line 10/24/17 23:00 94 Simple Mask 6.00 50 10/24/17 23:00 116 10/24/17 19:00 98.9 109 22 156/80 (105) 94 158/71 (100) 10/24/17 19:00 107 10/24/17 19:00 94 Simple Mask 6.00 50 10/24/17 18:10 97 10/24/17 16:00 97 Simple Mask 8.00 10/24/17 15:00 100 10/24/17 15:00 98 Venturi Mask 50 10/24/17 15:00 98.6 102 28 158/79 (105) 96 166/67 (100) 10/24/17 14:30 40 10/24/17 14:15 94 Venturi Mask 50 10/24/17 14:13 97 Mechanical Ventilator 10/24/17 14:13 97 Nasal Cannula 5 10/24/17 14:10 98.6 10/24/17 13:56 97 40 10/24/17 11:00 114 10/24/17 11:00 40 10/24/17 11:00 99 Mechanical Ventilator 40 10/24/17 11:00 100.2 114 24 144/81 (102) 99 160/75 (103) 10/24/17 10:47 98 40 10/24/17 10:47 40 10/24/17 10:47 40 ([place]) -: 10/24/17 0451 10/24/17 1643 Imaging Last 72 hours Impressions Chest X-Ray 10/24/17 0600 Signed Impressions: CONCLUSION: No significant change. Bilateral pulmonary opacities remain. Head CT 10/24/17 0000 Signed Impressions: CONCLUSION: 1. No acute intracranial abnormality. Gall Bladder Ultrasound 10/23/17 0000 Signed Impressions: CONCLUSION: 1. There is increased echogenicity of the liver suggestive of fatty infiltrati on and/or hepatocellular disease. 2. No evidence of gallstones or biliary tract obstruction. Chest X-Ray 10/23/17 0000 Signed Impressions: CONCLUSION: Scattered bilateral pulmonary infiltrates. Tubes & Lines: Guo Tubes & Lines Comment A line Drip Comment 06/07 NS, insulin ([place]) Physical Exam General Appearance: Well Developed, Well Nourished, No Acute Distress, Comfortable ([place]) Eyes Eye Remarks small pupils, left 2 mm, right 1 mm, sluggish ([place]) Throat Throat Remarks lip edematous, left side ([place]) Neck Neck Exam: Neck Supple ([place]) Pulmonary Resp Exam: Breath Sounds Equal, No Distress, Crackles, Diminished Breath Sounds ([place]) Cardiology CV Exam: Regular, Good Perfusion, Tachycardia ([place]) Gastrointestinal/Abdomen GI Exam: Soft, Non-Tender, Bowel Sounds Present ([place]) Genitourinary Exam: Clear Urine Remarks guo ([place]) Musculoskeletal MS Exam: Joints Intact, Normal Tone, Unable to Ambulate ([place]) Integumentary Skin Exam: Clear, Warm, Dry, Intact ([place]) Extremeties Extremities Exam: Pedal Pulses Palpable, Trace Edema ([place]) Neurologic Neuro Exam: Alert, Awake, Speech Clear, Moving All Extremities ([place]) Psychiatric Psych Exam: Appropriate Responses ([place]) Assessment/Plan Discussed Condition With: Patient Assessment Summary: CADY/Acute Renal Failure, Hypertension Electrolyte Assessment: Hypernatremia Problem List: (1) Acute kidney injury ICD Codes: N17.9 - Acute kidney failure, unspecified Status: Acute Plan: No baseline labs available for comparison Etiology of renal failure was prerenal azotemia (secondary to hyperglycemia/DKA ) and rhabdomyolysis s/p cardiac arrest with chest compressions. Renal function continues to improve, awaiting labs from today Non oliguric, remove Guo today Give another dose of Diuril, 500 mg IV Reduce IVF to 100 cc/hr Avoid nephrotoxic agents Repeat labs daily (2) Hypernatremia ICD Codes: E87.0 - Hyperosmolality and hypernatremia Plan: Encouraged PO fliud intake Hypotonic IVF: / NS , reduce to 100 cc/hr On Thiazide diuretics Follow BMP (3) Pyrexia ICD Codes: R50.9 - Fever, unspecified Status: Acute Plan: Etiology is unclear, ID is following s/p LP Cultures negative On cefepime and vancomycin, off flagyl (4) Hyperglycemia ICD Codes: R73.9 - Hyperglycemia, unspecified Plan: resolving DKA maintain glucose 140-180 mg/dL while hospitalized He will need diabetic education (5) Hypokalemia ICD Codes: E87.6 - Hypokalemia Status: Acute Plan: Improved, continue to replace as needed follow labs Plan ([place]) Plan patient was seen and examined. Renal function and hypernatremia both have improved. Continue hypotonic fluids and Diuril. (Shad Schroeder MD) Problem Qualifiers (1) Pyrexia: Qualified Codes: R50.9 - Fever, unspecified [place] October 25, 2017 10:42 Shad Schroeder MD October 25, 2017 16:09
[2017-10-25] MEDS ORDERED: CHLOROTHIAZIDE SOD 500 MG VIAL IV ONE (10:45)
[2017-10-25 11:02] LABS: AST (GOT) 213 U/L (15-37); BICARBONATE 20.1 MEQ/L (21.0-32.0); BLOOD UREA NITROGEN 45 MG/DL (7-18); CALCIUM 8.3 MG/DL (8.5-10.1); CHLORIDE 113 MEQ/L (98-107); CREATININE 1.96 MG/DL (0.60-1.30); GLOMERULAR FILTRATION RATE 46 ML/MIN (>89); GLUCOSE,RANDOM 178 MG/DL (74-106); SODIUM (NA) 149 MEQ/L (136-145)
[2017-10-25 11:03] LABS: ALT (GPT) 455 U/L (12-78)
[2017-10-25 11:06] LABS: ALKALINE PHOSPHATASE 285 U/L (45-117); TOTAL BILIRUBIN ADULT 0.6 MG/DL (0.2-1.0); TOTAL PROTEIN 5.5 GM/DL (6.4-8.2)
[2017-10-25 11:51] LABS: BANDS 9 % (0-6); CORRECTED NUCLEATED RBC 11 /100 WBC (0-0); LYMPHOCYTES 13 % (9-44); METAMYELOCYTES 2 % (0-1); MONOCYTES 14 % (0-8); MYELOCYTES 1 % (0-0); NEUTROPHIL # MANUAL DIFF 20.2 TH/MM3 (1.8-7.7); NUCLEATED RED BLOOD CELL 11 (0-0); POLYS (SEG NEUTROPHILS) 60 % (16-70)
[2017-10-25 11:52] LABS: TARGET CELLS 1+ (NORMAL)
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
[2017-10-25] MEDS: ACETAMINOPHEN 1000 MG/100 ML 100 ML IV PRN (13:17)
--- NOTE | 2017-10-25 13:26 | RADRPT ---
EXAM DATE: 10/25/2017 12:58 PM EDT AGE/SEX: 42 years / Male INDICATIONS: Encephalitis. CLINICAL DATA: This is the patient's initial encounter. Patient reports that signs and symptoms have been present for 1 day and indicates a pain score of 0/10. MEDICAL/SURGICAL HISTORY: Diabetes mellitus type II. Hypertension. Coronary artery disease. N one. COMPARISON: No prior [facility] exams available for comparison. TECHNIQUE: Multiplanar, multisequence examination of the brain was performed without contrast. FINDINGS: Cerebrum: The ventricles are normal for age. No evidence of midline shift, mass lesion, hemorrhage or acute infarction. No extraaxial fluid collections are seen. The pituitary gland and suprasellar cistern are normal in configuration. White Matter: No significant signal abnormalities are seen in the white matter. Posterior Fossa: The cerebellum and brainstem are intact. The 4th ventricle is midline. The cerebel lopontine angle is unremarkable. The cerebellar tonsils are normal in position. Diffusion Imaging: No focal areas of restricted diffusion are seen. No evidence of acute infarction . Extracranial: The visualized portions of the orbits and paranasal sinuses are unremarkable. CONCLUSION: 1. Unremarkable MRI examination of the brain. Specifically, no cerebral edema or diffusion abnormali ty to suggest encephalitis. Electronically signed by: Radames Aguilar MD 10/25/2017 1:24 PM EDT
[2017-10-25] MEDS: RESP: ALBUTEROL 2.5 MG/IPRATROPIUM 0.5 MG NEB (SCH) NEB (16:00)
[2017-10-26] VITALS (9 sets, daily range): BP systolic 131–160; BP diastolic 58–95; PULSE 91–116; RESP 13–45; TEMP 99.3–100.2; O2SAT 62–97
[2017-10-26] MEDS: INSULIN ASPART SUPPLEMENTAL SCALE SQ SCH ×7 (00:51→23:32)
[2017-10-26] MEDS: RESP: ALBUTEROL 2.5 MG/IPRATROPIUM 0.5 MG NEB (SCH) NEB ×4 (01:08→22:05)
[2017-10-26] MEDS: CHLORHEXIDINE GLUCONATE 2 % 1 PACK (2 CLOTHS) TOP SCH (04:00)
[2017-10-26] MEDS: ARTIFICIAL TEARS OPTH SOLN 15 ML BTL EACH EYE SCH ×4 (06:12→23:27)
--- NOTE | 2017-10-26 06:45 | RADRPT ---
EXAM DATE: 10/26/2017 6:30 AM EDT AGE/SEX: 42 years / Male INDICATIONS: Shortness of breath. CLINICAL DATA: This is the patient's subsequent encounter. Patient reports that signs and symptoms h ave been present for 1 week and indicates a pain score of Nonresponsive. MEDICAL/SURGICAL HISTORY: Hypertension. Cardiovascular disease. None. COMPARISON: [facility] – [place], CHEST SINGLE AP, 10/24/2017. . FINDINGS: The ET tube and NG tube have been removed. The heart size is upper limits of normal. There continues to be consolidation throughout the lungs being worse at the periphery of the mid lungs. There are mul tiple small metallic density seen over the right chest. A significant effusion is not seen. CONCLUSION: Diffuse consolidation likely related to diffuse underlying processes such as edema or diffuse inflamm atory change. Electronically signed by: Lucio Velarde MD 10/26/2017 6:44 AM EDT
[2017-10-26 07:20] LABS: AUTOMATED NEUTROPHIL # 26.1 TH/MM3 (1.8-7.7); BASOPHIL # 0.2 TH/MM3 (0-0.2); BASOPHIL % 0.4 % (0.0-2.0); EOSINOPHIL # 0.5 TH/MM3 (0-0.4); EOSINOPHIL % 1.4 % (0.0-4.0); HEMATOCRIT 22.4 % (39.0-51.0); HEMOGLOBIN 7.6 GM/DL (13.0-17.0); LYMPHOCYTE # 4.2 TH/MM3 (1.0-4.8); MEAN CELL VOLUME 77.3 FL (80.0-100.0); MEAN CORPUSCULAR HEMOGLOBIN 26.3 PG (27.0-34.0); MEAN PLATELET VOLUME 9.4 FL (7.0-11.0); MONO % 11.8 % (0.0-8.0); MONOCYTE # 4.1 TH/MM3 (0-0.9); NEUT % 74.4 % (16.0-70.0); PLATELET COUNT 275 TH/MM3 (150-450); RED CELL DISTRIBUTION WIDTH 15.8 % (11.6-17.2); WHITE BLOOD COUNT 35.1 TH/MM3 (4.0-11.0)
[2017-10-26 07:57] LABS: ALBUMIN 1.9 GM/DL (3.4-5.0); ALKALINE PHOSPHATASE 294 U/L (45-117); ALT (GPT) 328 U/L (12-78); AST (GOT) 163 U/L (15-37); BICARBONATE 23.8 MEQ/L (21.0-32.0); BLOOD UREA NITROGEN 40 MG/DL (7-18); CALCIUM 8.1 MG/DL (8.5-10.1); CHLORIDE 111 MEQ/L (98-107); CREATININE 1.89 MG/DL (0.60-1.30); GLOMERULAR FILTRATION RATE 48 ML/MIN (>89); GLUCOSE,RANDOM 173 MG/DL (74-106); MAGNESIUM 2.3 MG/DL (1.5-2.5); RANDOM VANCOMYCIN 7.6 COMMENT; SODIUM (NA) 146 MEQ/L (136-145); TOTAL BILIRUBIN ADULT 0.6 MG/DL (0.2-1.0); TOTAL PROTEIN 5.6 GM/DL (6.4-8.2)
[2017-10-26] MEDS: CHLORHEXIDINE 0.12% (ORAL KIT) 15 ML CUP MT SCH ×2 (08:00→20:00)
[2017-10-26] MEDS ORDERED: FUROSEMIDE 40 MG/4 ML VIAL IV PUSH ONE (08:00)
--- NOTE | 2017-10-26 08:02 | HHI.CCPN ---
Subjective Remarks/Hospital Course This is a 42-year-old AA male. Date of admission 10/19/2017. Past medical history includes depression, hypertension. Patient has no known history of diabetes mellitus but has multiple family members with this diagnosis. Over the past month, patient has been experiencing these sequelae of thirst, diminished appetite. Patient was in care home until recently and has not had his blood sugar checked according to his sister. He denies any sick contacts. Since being released from care home, patient has been relatively noncompliant with his home medications due to underlying nausea/vomiting and delirium. Patient was drinking copious amounts of fluids at home. Due to his underlying illness is's family convinced him to come to the hospital for further evaluation treatment today. Name Efraín, patient noted to have a blood sugar 1800. Acute kidney injury creatinine of around 3. Sodium 121. Multiple electrolyte and mellitus and elevated ammonia level. Patient originally presented with fever around 105 to his facility. Received 4 mg of cyproheptadine per ED physician first possible serotonin syndrome. He received ice to fluid/water and acetaminophen/NSAIDs and his blood sugars currently subsiding. Patient became more unresponsive in the ED intervention was intubated with central line placed by ED physician. 10/19:The patient went into V. tach at approximately 0720 am. ACLS protocol instituted. Insulin infusion discontinued. 12-lead EKG obtained, stat VBG obtained. 1 g calcium chloride given to stabilize membrane. The patient was defibrillated 1 prior to my arrival and the scene. The patient was given 50 mEq of potassium orally, as well as 20 meq.'s IV.ROSC returned at 0 750. Attempts made to contact family unsuccessful, palliative care consulted to define healthcare POA surrogacy. Repletion of electrolytes per ICU protocol , serial labs continues. Patient awakened post ROSC noted to have spontaneous eye opening movement of extremities 4 but not following commands. Arterial line placed, the patient continues on Levophed and phenylephrine infusion to maintain MAP. The patient was noted to have a significant respiratory acidosis , initial CO2 96, rate was increased at 6 AM subsequent CO2 67 with pH 6.97. Ventilatory rate increased, sodium bicarbonate 1 amp 4 bicarb level is 16.3 given. 10/20: The patient continues intermittently on a cooling blanket. EEG was performed which revealed moderate to severe encephalopathy. When the patient was off sedation spontaneous eye opening no tracking no movement of extremities. No further episodes of V. tach during the night. Potassium was aggressively repleted yesterday, nephrology was consulted regarding elevated creatinine in the setting of hypokalemia. Sodium bicarbonate infusion was instituted , now with resolution of metabolic acidosis .The patient's blood glucose continue to trend upward during the night the patient was placed on a non-DKA insulin infusion, currently at 4 units/hour. The patient continues to require vasopressors and currently on 3 to maintain map greater than 65. The patient is urinary output overnight for 12 hours was approximately 1300 cc. No significant elevation in temperature during the night recorded 100.0 10/21: electrolyte disturbances improving. afebrile. still encephalopathic and not arousing appropriately. initiated SBTs today but patient became severely tachypneic. 10/22: encephalopathy persists. platelet count improving, but too low for LP. electrolyte abn persists, but continue to slowly improve. 10/23: Remains intubated sedated with fentanyl. Remains tachycardic, encephalopathy. Opens his eyes to verbal stimulation. Appears to track. Slight withdrawal to pain but no spontaneous movements or following commands. Sodium remains elevated at 154, increase 1/4 normal saline to 100 mL/h. no fever last 24 hours 10/24: although patient is technically afebrile, he still requires continuous cooling blanket to prevent fevers. wbc still uptrending. now following commands. although neuro exam has improved, persistent fevers are concerning, and with platelet count now >100k, risk of LP minimal. will obtain CSF for additional information today. electrolyte abnormalities persist and we are aggressively treating these. 10/25: Extubated yesterday, tolerating well resp chan. Low grade fever persists. CT chest ordered by Dr. Sanchez ID evaluate nodular infiltrate. Started Levemir 5 units every 12 continue every 4 hours sliding scale. LP performed yesterday showed xanthochromia, HSV negative, CT of the head negative for acute findings. Patient is oriented to person and place 10/26: continues to improve. CXR with bilateral infiltrates which could be edema or infectious. remains on abx, ID involved. now on nc o2 and respiratory distress much improved. MRI negative for intracranial process. denies complaints. resting comfortably. ROS negative. Objective Vital Signs Date Time Temp Pulse Resp B/P (MAP) Pulse Ox O2 Delivery O2 Flow Rate FiO2 10/26/17 07:00 96 10/26/17 07:00 94 Nasal Cannula 4.00 10/26/17 07:00 99.5 13 160/83 (108) 10/25/17 08:40 40 Intake and Output 10/26/17 10/26/17 10/26/17 07:59 15:59 23:59 Intake Total 1710 ml Output Total 1650 ml Balance 60 ml Result Diagram: 10/26/17 0632 10/25/17 1009 Imaging Last Impressions Chest X-Ray 10/19/17252 Signed Impressions: Service Date/Time: Thursday, October 19, 2017 02:56 - CONCLUSION: 1. Bilateral pulmonary infiltrates. Dennis Claire Jr., MD Renal Ultrasound 10/19/17 0000 Signed Impressions: Service Date/Time: Thursday, October 19, 2017 09:46 - CONCLUSION: Normal examination. Alexx Baig MD Last Impressions Chest X-Ray 10/19/17252 Signed Impressions: Service Date/Time: Thursday, October 19, 2017 02:56 - CONCLUSION: 1. Bilateral pulmonary infiltrates. Dennis Claire Jr., MD Objective Remarks GENERAL: 42-year-old AA male lying in bed, no acute distress. SKIN: Warm and dry. Multiple tattoos HEAD: Atraumatic. Normocephalic. EYES: Pupils equal and round about 2 mm bilaterally and reactive no scleral icterus. No injection or drainage. ENT: No nasal bleeding or discharge. Mucous membranes pink and moist. NECK: Trachea midline. No JVD. CARDIOVASCULAR: normal rate, RR. Slightly hypertensive RESPIRATORY: unlabored. nc o2. equal chest rise. GASTROINTESTINAL: Abdomen soft, non-tender, nondistended. no guarding. MUSCULOSKELETAL: Extremities without significant pitting edema. No obvious deformities. NEUROLOGICAL: RASS -1. resting comfortably. arousable. follows commands. Date of Insertion: October 19, 2017 A/P Problem List: (1) Hypokalemia ICD Code: E87.6 - Hypokalemia Status: Acute (2) Acute respiratory failure ICD Code: J96.00 - Acute respiratory failure, unspecified whether with hypoxia or hypercapnia (3) Lactic acidosis ICD Code: E87.2 - Acidosis Status: Acute (4) Hypermagnesemia ICD Code: E83.41 - Hypermagnesemia (5) Pyrexia ICD Code: R50.9 - Fever, unspecified Status: Acute (6) Hyponatremia ICD Code: E87.1 - Hypo-osmolality and hyponatremia Status: Acute (7) Leukocytosis ICD Code: D72.829 - Elevated white blood cell count, unspecified Status: Acute (8) Hypophosphatemia ICD Code: E83.39 - Other disorders of phosphorus metabolism Status: Acute (9) Ketoacidosis due to secondary diabetes ICD Code: E13.10 - Other specified diabetes mellitus with ketoacidosis without coma Status: Acute (10) Acute kidney injury ICD Code: N17.9 - Acute kidney failure, unspecified Status: Acute (11) Acute encephalopathy ICD Code: G93.40 - Encephalopathy, unspecified Status: Acute (12) BMI 37.0-37.9, adult ICD Code: Z68.37 - Body mass index (BMI) 37.0-37.9, adult Status: Acute Assessment and Plan Assessment: 42yM with severe life-threatening electrolyte abnormalities and acute encephalopathy. clinically improving. stable for transfer out of ICU. will consult hospitalist service. needs ongoing diuresis and still has some metabolic derangements that we are addressing. Neuro/Psych: Acute toxic metabolic encephalopathy Depression/anxiety CT head negative, MRI brain negative. LP showed xanthochromia, HSV negative 10/19 EEG-moderate to severe encephalopathy. Holding Quetiapine 100 mg daily, divalproex 250 mg daily and buspirone 10 mg p.o. 3 times daily/home medication along with hydroxyzine 10 mg p.o. 3 times daily Patient did received cyproheptadine 4 mg 1 for possible serotonin syndrome by ED physician Holding buspirone 10 mg daily, divalproex 250 mg daily/check level and ketamine 100 mg p.o. daily. Neurology Dr. Solis Use as needed morphine. Neurological exam is significantly improved CV: Severe sepsis Lactic acidosis- resolved History of essential hypertension Holding home medication of amlodipine/benazepril 10/20 1 tablet daily and lisinopril 20 mg p.o. 2x daily in light of hypotension amlodipine 10mg po daily. Coreg 3.125 mg BID Resp: Acute hypoxic and hypercarbic respiratory failure Mixed acidosis- resolved Extubated 10/24/2017, tolerating well, currently on nc o2. Albuterol/ipratropium aerosols every 6 hours with albuterol aerosols every 2 hours as needed dyspnea EzPAP, Acapella OOB. PT consult. GI: Possible upper GI bleed. Hypoalbuminemia ADA diet Pantoprazole for GI prophylaxis Docusate sodium/senna 1 tablet twice daily for bowel regimen Lactulose 30 cc twice daily. Ammonia level was elevated.but normalized : DC Chiang today Endo: Acute hyperglycemic state Ketoacidosis Currently on q4h SSI. Levemir 5 U q12h 10/19 Hemoglobin A1c-13 10/19 lipid panel-triglycerides 208 Renal: Acute kidney injury- resolving. Hypernatremia Monitor urine output Accurate I's and O's Continue 06/07 NS to 100 ml per hour CMP today pending Heme: Leukocytosis Normocytic anemia Thrombocytopenia- improving. Monitor CBC daily. Follow trends 4t score: low probability for HIT. likely consumption. 178 10/24 ID: Currently on cefepime and vancomycin. Metronidazole dcd by ID CT chest ordered for to evaluate nodular infiltrate Blood cultures 2, sputum, urine, influenza all ordered: NGTD. LP Gram stain negative, xanthochromia present MRI brain today ID Dr. Sanchez Procalcitonin 9.03 indicating probable infectious etiology FEN: Hypokalemia Hypophosphatemia Hypermagnesemia Replace electrolytes as clinically indicated. Currently on hypotonic saline to correct sodium Monitor serial electrolyte levels MSK: Elevated BMI of 37 PT evaluate and treat Access -piv's Prophylaxis GI -pantoprazole -DVT -SCD/start lovenox. Dipso: transfer out of ICU. consult hospitalist service. Problem Qualifiers (1) Acute respiratory failure: Qualified Codes: J96.01 - Acute respiratory failure with hypoxia; J96.02 - Acute respiratory failure with hypercapnia (2) Pyrexia: Qualified Codes: R50.9 - Fever, unspecified González Enriquez MD October 26, 2017 08:02
[2017-10-26] MEDS: DOCUSATE SODIUM 50 MG/SENNA 8.6 MG TAB PO SCH ×2 (09:00→19:35)
[2017-10-26 09:12] LABS: BANDS 17 % (0-6); BASOPHILS 1 % (0-2); CORRECTED NUCLEATED RBC 3 /100 WBC (0-0); LYMPHOCYTES 8 % (9-44); METAMYELOCYTES 3 % (0-1); MONOCYTES 8 % (0-8); MYELOCYTES 1 % (0-0); NEUTROPHIL # MANUAL DIFF 29.1 TH/MM3 (1.8-7.7); NUCLEATED RED BLOOD CELL 3 (0-0); POLYS (SEG NEUTROPHILS) 62 % (16-70)
[2017-10-26 09:13] LABS: TARGET CELLS 1+ (NORMAL); TOXIC GRANULATION 1+ (NORMAL)
[2017-10-26] MEDS: SODIUM CHLORIDE 0.9% FLUSH 10 ML FLUSH IV FLUSH SCH ×2 (09:15→19:34)
[2017-10-26] MEDS: INSULIN DETEMIR 100 UNITS/ML VIAL SQ SCH ×2 (09:15→20:19)
[2017-10-26] MEDS: CARVEDILOL 3.125 MG TAB PO SCH ×2 (09:15→19:34)
[2017-10-26] MEDS ORDERED: POTASSIUM CHLORIDE 25 MEQ EFFERVESCENT TAB PO ONE (09:15)
[2017-10-26] MEDS: PANTOPRAZOLE SODIUM 40 MG VIAL IV PUSH SCH ×2 (09:16→19:34)
[2017-10-26] MEDS: CEFEPIME INJ 2,000 MG in SODIUM CHLORIDE 0.9% INJ 100 ML IV SCH ×2 (09:16→19:34)
[2017-10-26] MEDS: ENOXAPARIN SODIUM 40 MG/0.4 ML SYRINGE SQ SCH (09:17)
--- NOTE | 2017-10-26 09:53 | HHI.NPPN ---
Subjective General Problems: Edema Renal Failure: Acute Interval History He is awake and alert. Renal function is better. Hypokalemic today. Reporting thirst. Febrile overnight. ([place]) Review of Systems General Constitutional: Fatigue ([place]) Cardiovascular Cardiac: Edema ([place]) Gastrointestinal Gastrointestinal: Diarrhea ([place]) Endocrine Endocrine: Thirst ([place]) Objective Data Data Vital Signs Date Time Temp Pulse Resp B/P (MAP) Pulse Ox O2 Delivery O2 Flow Rate FiO2 10/26/17 09:10 96 Nasal Cannula 3.00 10/26/17 07:00 96 10/26/17 07:00 94 Nasal Cannula 4.00 10/26/17 07:00 99.5 96 13 160/83 (108) 96 10/26/17 03:00 94 Nasal Cannula 4.00 10/26/17 03:00 99 44 131/58 (82) 62 10/26/17 03:00 99 10/26/17 00:00 99.6 102 38 149/74 (99) 97 10/26/17 00:00 102 10/25/17 23:00 94 Nasal Cannula 4.00 10/25/17 20:00 99.1 94 28 163/69 (100) 99 10/25/17 20:00 94 10/25/17 19:00 97 Nasal Cannula 4.00 10/25/17 18:00 98.8 100 31 128/59 (82) 99 10/25/17 18:00 100 10/25/17 15:00 94 Nasal Cannula 5.00 10/25/17 15:00 98.5 109 30 130/63 (85) 94 10/25/17 15:00 104 10/25/17 11:00 100.5 109 30 150/72 (98) 94 10/25/17 11:00 95 Nasal Cannula 4.00 10/25/17 11:00 112 ([place]) -: 10/26/17 0632 10/26/17 0632 Imaging Last 72 hours Impressions Chest X-Ray 10/26/17 0600 Signed Impressions: CONCLUSION: Diffuse consolidation likely related to diffuse underlying processes such as ed aaron or diffuse inflammatory change. Chest CT 10/25/17 Signed Impressions: CONCLUSION: 1. Multiple bilateral scattered interstitial and airspace infiltrates througho ut both lung yuen suggestive of some type of inflammatory process. 2. Abnormal appearance of the liver. Recommend CT scan of the abdomen with IV contrast for further evaluation. Brain MRI 10/25/17 Signed Impressions: CONCLUSION: 1. Unremarkable MRI examination of the brain. Specifically, no cerebral edema or diffusion abnormality to suggest encephalitis. Chest X-Ray 10/24/17599 Signed Impressions: CONCLUSION: No significant change. Bilateral pulmonary opacities remain. Head CT 10/24/17 Signed Impressions: CONCLUSION: 1. No acute intracranial abnormality. Tubes & Lines: Guo Tubes & Lines Comment A line Drip Comment 06/07 NS ([place]) Physical Exam General Appearance: Well Developed, Well Nourished, No Acute Distress, Comfortable ([place]) Eyes Eye Exam: Pupils Equal, Pupils Reactive ([place]) Throat Throat Remarks lip edematous, left side ([place]) Neck Neck Exam: Neck Supple ([place]) Pulmonary Resp Exam: Breath Sounds Equal, No Distress, Crackles, Diminished Breath Sounds ([place]) Cardiology CV Exam: Regular, Good Perfusion, Tachycardia ([place]) Gastrointestinal/Abdomen GI Exam: Soft, Non-Tender, Bowel Sounds Present, Positive Bowel Movement, Distended ([place]) Genitourinary Exam: Clear Urine Remarks guo ([place]) Musculoskeletal MS Exam: Joints Intact, Normal Tone, Unable to Ambulate ([place]) Integumentary Skin Exam: Clear, Warm, Dry, Intact ([place]) Extremeties Extremities Exam: Pedal Pulses Palpable, Moderate Edema ([place]) Neurologic Neuro Exam: Alert, Awake, Speech Clear, Moving All Extremities ([place]) Psychiatric Psych Exam: Appropriate Responses ([place]) Assessment/Plan Discussed Condition With: Patient Assessment Summary: CADY/Acute Renal Failure, Hypertension Electrolyte Assessment: Hypernatremia Problem List: (1) Acute kidney injury ICD Codes: N17.9 - Acute kidney failure, unspecified Status: Acute Plan: No baseline labs available for comparison renal failure was secondary to hyperglycemia/DKA and rhabdomyolysis s/p cardiac arrest with chest compressions. Renal function improving daily guo was removed, excellent urine output Diuril ordered for today Reduce IVF to 50 cc/hr Replace potassium IV and orally Avoid nephrotoxic agents (2) Hypernatremia ICD Codes: E87.0 - Hyperosmolality and hypernatremia Plan: Encouraged PO fliud intake Hypotonic IVF: 1/4 NS , reduce to 50 cc/hr On Thiazide diuretics Follow BMP (3) Pyrexia ICD Codes: R50.9 - Fever, unspecified Status: Acute Plan: ID consulted s/p LP Cultures negative On cefepime (4) Hyperglycemia ICD Codes: R73.9 - Hyperglycemia, unspecified Plan: resolving DKA maintain glucose 140-180 mg/dL while hospitalized He will need diabetic education (5) Hypokalemia ICD Codes: E87.6 - Hypokalemia Status: Acute Plan: continue to replace as needed follow labs Plan He is improving clinically, we will sign off at this time. Please call us if needed. ([place]) Plan patient was seen and examined. Renal function and hypernatremia both have improved. Stop 1/4NS, encourage oral intake. We will see as needed. (Shad Schroeder MD) Problem Qualifiers (1) Pyrexia: Qualified Codes: R50.9 - Fever, unspecified [place] October 26, 2017 09:53 Shad Schroeder MD October 26, 2017 14:23
[2017-10-26] MEDS: POTASSIUM CHLOR 20 MEQ PREMIX 100 ML IV SCH ×2 (10:46→12:39)
--- NOTE | 2017-10-26 10:58 | HHI.PR ---
Subjective Remarks off vent awake Objective Vital Signs Date Time Temp Pulse Resp B/P (MAP) Pulse Ox O2 Delivery O2 Flow Rate FiO2 10/26/17 09:10 96 Nasal Cannula 3.00 10/26/17 07:00 96 10/26/17 07:00 94 Nasal Cannula 4.00 10/26/17 07:00 99.5 96 13 160/83 (108) 96 10/26/17 03:00 94 Nasal Cannula 4.00 10/26/17 03:00 99 44 131/58 (82) 62 10/26/17 03:00 99 10/26/17 00:00 99.6 102 38 149/74 (99) 97 10/26/17 00:00 102 10/25/17 23:00 94 Nasal Cannula 4.00 10/25/17 20:00 99.1 94 28 163/69 (100) 99 10/25/17 20:00 94 10/25/17 19:00 97 Nasal Cannula 4.00 10/25/17 18:00 98.8 100 31 128/59 (82) 99 10/25/17 18:00 100 10/25/17 15:00 94 Nasal Cannula 5.00 10/25/17 15:00 98.5 109 30 130/63 (85) 94 10/25/17 15:00 104 10/25/17 11:00 100.5 109 30 150/72 (98) 94 10/25/17 11:00 95 Nasal Cannula 4.00 10/25/17 11:00 112 I/O 10/25/17 10/25/17 10/25/17 10/26/17 10/26/17 10/26/17 07:00 15:00 23:00 07:00 15:00 23:00 Intake Total 1598 ml 450 ml 2109.625 ml 1710 ml Output Total 2470 ml 2000 ml 1650 ml Balance -872 ml 450 ml 109.625 ml 60 ml Intake Oral 640 ml 1000 ml 960 ml IV Total 798 ml 450 ml 1109.625 ml 750 ml Tube Feeding 160 ml Output Urine Total 2350 ml 2000 ml 1650 ml Stool Total 120 ml # Bowel Movements 1 3 3 Result Diagram: 10/26/17 0632 10/26/17 0632 Objective Remarks following commands well bilat feet moves all ext ox3 vff face sym alert awake not aphasic names well Assessment and Plan Assessment and Plan imp much better mri nl eeg neg will sign off Huey Solis MD October 26, 2017 10:58
--- NOTE | 2017-10-26 12:18 | HHI.IDPN ---
Subjective Subjective Remarks Patient is a 42-year-old male, brought into the hospital for evaluation of multiple symptoms. He apparently has been having problem with poor p.o. intake , and thirst and increasing fluid intake. There is also mention that he has had problem with nausea and vomiting and some confusion. The symptoms have been going on for about a month. Was brought into the emergency room, and he was found to have a blood sugar of 1800, creatinine was up to 3, sodium 21, and he has multiple abnormal electrolytes. He also had acidosis, and high fevers. His white count was elevated. In the ED he became more unresponsive, and he ended up getting intubated. He was initially on pressors. He was also found to have a very elevated CPK. His electrolytes stabilized, and his acidosis improved. Creatinine improved, and he has improvement in his urine output. He had 2 blood cultures done and those are negative. He was started on empiric antibiotics for possible aspiration. Initial urinalysis was unremarkable. Patient remains on the vent. His mental status still has not improved. Neurology has been consulted. Patient's temperatures seem to have improved. His chest x-ray showing bilateral pulmonary infiltrates and some nodular infiltrates. He has been getting vancomycin, cefepime, and Flagyl. His CPKs are still elevated, and his LFTs were also elevated. Patient also during his hospitalization had episode of V. tach and was resuscitated successfully. Infectious disease consultation has been requested to evaluate patient with high fevers. Notes reviewed Temps low grade yesterday, better overnight On nasal O2 BP ok Has been extubated 10/24 NO abdominal pain Not SOB No CP No N/V; swallowing ok Sputum C/S normal resp radha CSF, mild pleocytosis, (+) RBC, glucose ok, sl elevated protein CT head no contrast negative Brain MRI negative CT chest - aishwarya infiltrates WBC up to 35K HSV in CSF negative Antibiotics Cefepime Current Medications Medications (Trade) Dose Ordered Sig/Jacky Route Start Time Stop Time Status Last Admin (NS Flush) 2 ml UNSCH PRN IV FLUSH 10/19/17 02:30 (NS Flush) 2 ml BID IV FLUSH 10/19/17 09:00 10/26/17 09:15 (Albuterol Neb) 2.5 mg Q2HR NEB PRN INH 10/19/17 02:30 10/24/17 08:36 ([facility] [place] Nursing Information) 1 [id number] XX 10/19/17 02:30 10/19/17 02:30 (Chlorhexidine 2% Cloth) Taper DAILY@04 TOP 10/19/17 04:00 10/15/18 03:59 10/26/17 04:00 (Chlorhexidine 2% Cloth) 3 pack UNSCH PRN TOP 10/19/17 02:30 (Candace-Colace) 1 tab BID PO 10/19/17 09:00 10/23/17 20:33 (Milk Of Magnesia Liq) 30 ml Q12H PRN PO 10/19/17 02:30 (Senokot) 17.2 mg Q12H PRN PO 10/19/17 02:30 (Dulcolax Supp) 10 mg DAILY PRN RECTAL 10/19/17 02:30 (Zofran Odt) 4 mg Q6H PRN PO 10/19/17 02:30 (Protonix Inj) 40 mg BID IV PUSH 10/19/17 09:00 10/26/17 09:16 (Tears Naturale Opth Soln) 1 drop Q8HR EACH EYE 10/19/17 06:00 10/26/17 06:12 (Peridex 0.12% Liq) 15 ml BID@08,20 MT 10/19/17 08:00 10/24/17 08:17 Acetaminophen 100 ml @ 400 mls/hr Q8H PRN IV 10/19/17 03:30 10/25/17 13:17 (Glucagon Inj) 1 mg UNSCH PRN OTHER 10/19/17 04:15 (Brethine Inj) 1 mg UNSCH PRN SQ 10/19/17 07:45 (D50w (Vial) Inj) 50 ml UNSCH PRN IV PUSH 10/19/17 23:30 10/23/17 05:24 Sodium Chloride 38.5 meq/Sterile Water 1,009.625 ml @ 50 mls/hr [id number] IV 10/22/17 14:00 10/25/17 21:42 (Lactulose Liq) 30 ml DAILY PRN PO 10/23/17 21:30 (D50w (Vial) Inj) 50 ml UNSCH PRN IV PUSH 10/24/17 21:00 (Glucagon Inj) 1 mg UNSCH PRN OTHER 10/24/17 21:00 (NovoLOG SUPPLEMENTAL SCALE) 1 Q4HR SQ 10/24/17 21:00 10/26/17 08:00 Cefepime HCl 2000 mg/Sodium Chloride 100 ml @ 200 mls/hr Q12H IV 10/25/17 09:00 10/26/17 09:16 (Levemir Inj) 5 units Q12HR SQ 10/25/17 10:00 10/26/17 09:15 (Norvasc) 10 mg DAILY PO 10/26/17 09:00 10/26/17 09:15 (Coreg) 3.125 mg Q12HR PO 10/25/17 09:45 10/26/17 09:15 (Duoneb Neb) 1 ampule Q8HR NEB NEB 10/25/17 16:00 10/26/17 09:08 (Lovenox Inj) 40 mg Q24H SQ 10/26/17 08:00 10/26/17 09:17 Potassium Chloride 100 ml @ 50 mls/hr Q2H IV 10/26/17 10:00 10/26/17 13:59 10/26/17 10:46 Lines Line no evidence of infection Past Medical History Depression/anxiety Hypertension NSAID use Allergies: Coded Allergies: No Known Allergies (Unverified Allergy, Unknown, 10/18/17) Objective . Vital Signs Date Time Temp Pulse Resp B/P (MAP) Pulse Ox O2 Delivery O2 Flow Rate FiO2 10/26/17 11:25 94 Simple Mask 6.00 10/26/17 09:10 96 Nasal Cannula 3.00 10/26/17 07:00 96 10/26/17 07:00 94 Nasal Cannula 4.00 10/26/17 07:00 99.5 96 13 160/83 (108) 96 10/26/17 03:00 94 Nasal Cannula 4.00 10/26/17 03:00 99 44 131/58 (82) 62 10/26/17 03:00 99 10/26/17 00:00 99.6 102 38 149/74 (99) 97 10/26/17 00:00 102 10/25/17 23:00 94 Nasal Cannula 4.00 10/25/17 20:00 99.1 94 28 163/69 (100) 99 10/25/17 20:00 94 10/25/17 19:00 97 Nasal Cannula 4.00 10/25/17 18:00 98.8 100 31 128/59 (82) 99 10/25/17 18:00 100 10/25/17 15:00 94 Nasal Cannula 5.00 10/25/17 15:00 98.5 109 30 130/63 (85) 94 10/25/17 15:00 104 . Laboratory Tests Test 10/25/17 10:09 10/26/17 06:32 White Blood Count 28.1 TH/MM3 35.1 TH/MM3 Red Blood Count 3.06 MIL/MM3 2.90 MIL/MM3 Hemoglobin 7.9 GM/DL 7.6 GM/DL Hematocrit 23.8 % 22.4 % Mean Corpuscular Volume 77.5 FL 77.3 FL Mean Corpuscular Hemoglobin 25.8 PG 26.3 PG Mean Corpuscular Hemoglobin Concent 33.3 % 34.0 % Red Cell Distribution Width 16.6 % 15.8 % Platelet Count 213 TH/MM3 275 TH/MM3 Mean Platelet Volume 10.4 FL 9.4 FL CBC Comment AUTO DIFF AUTO DIFF Differential Total Cells Counted 100 100 Neutrophils % (Manual) 60 % 62 % Band Neutrophils % 9 % 17 % Lymphocytes % 13 % 8 % Monocytes % 14 % 8 % Eosinophils % 1 % Neutrophils # (Manual) 20.2 TH/MM3 29.1 TH/MM3 Metamyelocytes 2 % 3 % Myelocytes 1 % 1 % Nucleated Red Blood Cells 11 /100 WBC 3 /100 WBC Differential Comment FINAL DIFF MANUAL FINAL DIFF MANUAL Platelet Estimate NORMAL NORMAL Platelet Morphology Comment ENLARGED ENLARGED Basophilic Stippling FAINT Target Cells 1+ 1+ Neutrophils (%) (Auto) 74.4 % Lymphocytes (%) (Auto) 12.0 % Monocytes (%) (Auto) 11.8 % Eosinophils (%) (Auto) 1.4 % Basophils (%) (Auto) 0.4 % Neutrophils # (Auto) 26.1 TH/MM3 Lymphocytes # (Auto) 4.2 TH/MM3 Monocytes # (Auto) 4.1 TH/MM3 Eosinophils # (Auto) 0.5 TH/MM3 Basophils # (Auto) 0.2 TH/MM3 Basophils % 1 % Toxic Granulation 1+ Polychromasia 2.0 % Laboratory Tests Test 10/24/17 16:43 10/25/17 10:09 10/26/17 06:32 Blood Urea Nitrogen 48 MG/DL 45 MG/DL 40 MG/DL Creatinine 2.00 MG/DL 1.96 MG/DL 1.89 MG/DL Random Glucose 153 MG/DL 178 MG/DL 173 MG/DL Total Protein 5.3 GM/DL 5.5 GM/DL 5.6 GM/DL Albumin 1.8 GM/DL 2.0 GM/DL 1.9 GM/DL Calcium Level 7.9 MG/DL 8.3 MG/DL 8.1 MG/DL Phosphorus Level 3.0 MG/DL Magnesium Level 2.6 MG/DL 2.3 MG/DL Alkaline Phosphatase 238 U/L 285 U/L 294 U/L Aspartate Amino Transf (AST/SGOT) 301 U/L 213 U/L 163 U/L Alanine Aminotransferase (ALT/SGPT) 575 U/L 455 U/L 328 U/L Total Bilirubin 0.7 MG/DL 0.6 MG/DL 0.6 MG/DL Sodium Level 151 MEQ/L 149 MEQ/L 146 MEQ/L Potassium Level 3.6 MEQ/L 3.5 MEQ/L 2.7 MEQ/L Chloride Level 117 MEQ/L 113 MEQ/L 111 MEQ/L Carbon Dioxide Level 20.9 MEQ/L 20.1 MEQ/L 23.8 MEQ/L Anion Gap 13 MEQ/L 16 MEQ/L 11 MEQ/L Estimat Glomerular Filtration Rate 45 ML/MIN 46 ML/MIN 48 ML/MIN Total Creatine Kinase 2996 U/L Creatine Kinase MB 8.1 NG/ML Creatine Kinase MB % 0.3 % Microbiology Date/Time Source Procedure Growth Status 10/24/17 09:40 Cerebral Spinal Fluid Lumbar Puncture Acid Fast Stain - Final NO ACID FAST BACILLI SEEN Resulted 10/24/17 09:40 Cerebral Spinal Fluid Lumbar Puncture Mycobacterial Culture Pending Resulted 10/24/17 09:40 Cerebral Spinal Fluid Lumbar Puncture Gram Stain - Final Resulted 10/24/17 09:40 Cerebral Spinal Fluid Lumbar Puncture CSF Culture - Preliminary NO GROWTH IN 48 HOURS. Resulted Imaging Last 72 hours Impressions Chest X-Ray 10/24/17 0600 Signed Impressions: CONCLUSION: No significant change. Bilateral pulmonary opacities remain. Head CT 10/24/17 0000 Signed Impressions: CONCLUSION: 1. No acute intracranial abnormality. Gall Bladder Ultrasound 10/23/17 Signed Impressions: CONCLUSION: 1. There is increased echogenicity of the liver suggestive of fatty infiltrati on and/or hepatocellular disease. 2. No evidence of gallstones or biliary tract obstruction. Chest X-Ray 10/23/17 Signed Impressions: CONCLUSION: Scattered bilateral pulmonary infiltrates. Last Impressions Gall Bladder Ultrasound 10/23/17 Signed Impressions: CONCLUSION: Chest X-Ray 10/23/17 Signed Impressions: CONCLUSION: Scattered bilateral pulmonary infiltrates. Renal Ultrasound 10/19/17 Signed Impressions: Service Date/Time: Thursday, October 19, 2017 09:46 - CONCLUSION: Normal examination. Alexx Baig MD Physical Exam GENERAL: Awakens easily, NAD SKIN: Cool and dry. No generalized rash. HEAD: Atraumatic. Normocephalic. No temporal wasting, or tenderness. EYES: [place] conjunctiva. No petechia or hemorrhage. Has dirty sclera. EARS, NOSE AND THROAT: Nose without bleeding or purulent nasal discharge. MOist mucosa NECK: Trachea midline. Supple and not tender, no meningeal signs CARDIOVASCULAR: Regular rate and rhythm. No murmurs, rubs or gallops heard RESPIRATORY: Decreased BS at bases ABDOMEN: Distended, not tender, not guarding, bowel sounds present and hypoactive. EXTREMITIES: Warm, has pitting edema NEUROLOGICAL: Grossly non-focal PSYCHIATRIC: Calm and cooperative : Chiang catheter in place, urine looks clear. LINE: No evidence of infection Assessment & Plan Remarks IMPRESSION Possible sepsis on initial presentation with fevers, dec LOC, MOSF - source possible lung, has aishwarya nodular infiltrates, BC negative, no sputum C/S DM, DKA Elevated CPK Elevated LFTs Renal failure Acidosis, resolved Encephalopathy, ?metabolic, or [employer] etiology Leukocytosis, worse RECOMMENDATION Follow C/S Continue Cefepime Will not give any further Vancomycin Follow CBC Follow temps Monitor progress Haley Sanchez MD October 26, 2017 12:18
[2017-10-26 23:51] LABS: CSF CRYPTOCOCCUS ANTIGEN NOT DETECTED (NEGATIVE); VDRL CSF NON-REACTIVE (NON-REACTVE)
[2017-10-27] VITALS (29 sets, daily range): BP systolic 130–210; BP diastolic 65–104; PULSE 93–109; RESP 15–42; TEMP 99–100.5; O2SAT 90–100
[2017-10-27] MEDS: ACETAMINOPHEN 1000 MG/100 ML 100 ML IV PRN (00:49)
[2017-10-27] MEDS: CHLORHEXIDINE GLUCONATE 2 % 1 PACK (2 CLOTHS) TOP SCH (04:00)
[2017-10-27 04:22] LABS: MEAN CELL VOLUME 77.3 FL (80.0-100.0); MEAN CORPUSCULAR HEMOGLOBIN 26.2 PG (27.0-34.0); MEAN CORPUSCULAR HGB CONC 33.9 % (32.0-36.0); MEAN PLATELET VOLUME 9.6 FL (7.0-11.0); PLATELET COUNT 292 TH/MM3 (150-450); RED BLOOD COUNT 2.54 MIL/MM3 (4.50-5.90); RED CELL DISTRIBUTION WIDTH 15.7 % (11.6-17.2); WHITE BLOOD COUNT 33.6 TH/MM3 (4.0-11.0)
[2017-10-27] MEDS: INSULIN ASPART SUPPLEMENTAL SCALE SQ SCH ×5 (04:25→20:10)
[2017-10-27] MEDS: ARTIFICIAL TEARS OPTH SOLN 15 ML BTL EACH EYE SCH ×3 (04:26→20:12)
[2017-10-27 04:33] LABS: HEMATOCRIT 19.6 % (39.0-51.0); HEMOGLOBIN 6.6 GM/DL (13.0-17.0)
[2017-10-27 04:50] LABS: BICARBONATE 26.6 MEQ/L (21.0-32.0); CALCIUM 7.5 MG/DL (8.5-10.1); CREATININE 1.69 MG/DL (0.60-1.30)
[2017-10-27] MEDS ORDERED: POTASSIUM CHLOR 40 MEQ PREMIX 100 ML IV PRN ×2 (05:15)
[2017-10-27] MEDS ORDERED: POTASSIUM PHOSPHATE MONOBASIC 500 MG TAB PO PRN (05:15)
[2017-10-27] MEDS ORDERED: MAGNESIUM SULFATE INJ 4 GM in SODIUM CHLORIDE 0.9% INJ 92 ML IV PRN (05:15)
[2017-10-27] MEDS ORDERED: POTASSIUM PHOSPHATE MONOBASIC 500 MG TAB PO/TUBE PRN (05:15)
[2017-10-27] MEDS ORDERED: POTASSIUM CHLORIDE 25 MEQ EFFERVESCENT TAB PO PRN (05:15)
[2017-10-27] MEDS ORDERED: SODIUM PHOSPHATE INJ 30 MMOL in SODIUM CHLOR 0.9% 250 ML INJ 240 ML IV PRN (05:15)
[2017-10-27] MEDS ORDERED: POTASSIUM PHOSPHATE INJ 30 MMOL in SODIUM CHLOR 0.9% 250 ML INJ 250 ML IV PRN (05:15)
[2017-10-27] MEDS ORDERED: MAGNESIUM SULFATE INJ 2 GM in SODIUM CHLORIDE 0.9% INJ 96 ML IV PRN (05:15)
[2017-10-27] MEDS ORDERED: POTASSIUM CHLOR 20 MEQ PREMIX 100 ML IV PRN (05:15)
[2017-10-27] MEDS ORDERED: MAGNESIUM OXIDE 400 MG TAB PO PRN (05:15)
[2017-10-27] MEDS: POTASSIUM CHLOR 20 MEQ PREMIX 100 ML IV PRN ×4 (05:38→11:33)
[2017-10-27] MEDS: RESP: ALBUTEROL 2.5 MG/IPRATROPIUM 0.5 MG NEB (SCH) NEB ×2 (07:27→16:00)
[2017-10-27] MEDS: CHLORHEXIDINE 0.12% (ORAL KIT) 15 ML CUP MT SCH ×2 (08:00→19:41)
[2017-10-27] MEDS: INSULIN DETEMIR 100 UNITS/ML VIAL SQ SCH ×2 (08:36→20:10)
[2017-10-27] MEDS: CARVEDILOL 3.125 MG TAB PO SCH ×2 (08:37→19:26)
[2017-10-27] MEDS: PANTOPRAZOLE SODIUM 40 MG VIAL IV PUSH SCH (08:37)
[2017-10-27] MEDS: ENOXAPARIN SODIUM 40 MG/0.4 ML SYRINGE SQ SCH (08:37)
[2017-10-27] MEDS: CEFEPIME INJ 2,000 MG in SODIUM CHLORIDE 0.9% INJ 100 ML IV SCH ×2 (08:37→19:22)
[2017-10-27] MEDS: SODIUM CHLORIDE 0.9% FLUSH 10 ML FLUSH IV FLUSH SCH ×2 (08:38→19:26)
[2017-10-27] MEDS: DOCUSATE SODIUM 50 MG/SENNA 8.6 MG TAB PO SCH (08:47)
[2017-10-27 10:13] LABS: CSF CRYPTOCOCCUS AG CONF ND (NOT DETECTD)
--- NOTE | 2017-10-27 11:15 | HHI.NPPN ---
Subjective General Problems: Edema Renal Failure: Acute Review of Systems General Constitutional: Fatigue Cardiovascular Cardiac: Edema Gastrointestinal Gastrointestinal: Diarrhea Endocrine Endocrine: Thirst Objective Data Data 10/27/17 10/28/17 19:00 07:00 Intake Total 1080 ml Balance 1080 ml Packed Cells 400 ml Blood Product IV Normal Saline Flush 680 ml Vital Signs Date Time Temp Pulse Resp B/P (MAP) Pulse Ox O2 Delivery O2 Flow Rate FiO2 10/27/17 08:48 99.0 93 15 155/74 100 10/27/17 07:28 98 Nasal Cannula 2.00 10/27/17 07:00 99 39 153/70 (97) 100 10/27/17 07:00 100 Nasal Cannula 2.00 10/27/17 04:00 98 10/27/17 04:00 99.4 98 33 159/87 (111) 98 10/27/17 03:00 96 Nasal Cannula 2.00 10/27/17 01:19 20 10/27/17 00:00 100.5 101 37 150/71 (97) 97 10/27/17 00:00 101 10/26/17 23:00 95 Nasal Cannula 2.00 10/26/17 22:06 94 Nasal Cannula 4.00 10/26/17 20:00 99.5 92 45 147/73 (97) 96 10/26/17 20:00 92 10/26/17 19:00 94 Room Air 21 10/26/17 16:00 91 10/26/17 15:00 95 Nasal Cannula 4.00 10/26/17 15:00 100.2 99 41 131/63 (85) 10/26/17 15:00 99 10/26/17 11:25 94 Simple Mask 6.00 -: 10/27/17 0333 10/27/17 0333 Tubes & Lines: Chiang Tubes & Lines Comment A line Drip Comment 06/07 NS Physical Exam General Appearance: Well Developed, Well Nourished, No Acute Distress, Comfortable Eyes Eye Exam: Pupils Equal, Pupils Reactive Neck Neck Exam: Neck Supple Pulmonary Resp Exam: Breath Sounds Equal, No Distress, Decreased Bases Cardiology CV Exam: Regular, Good Perfusion, Tachycardia Gastrointestinal/Abdomen GI Exam: Soft, Non-Tender, Bowel Sounds Present, Positive Bowel Movement, Distended Genitourinary Exam: Clear Urine Musculoskeletal MS Exam: Joints Intact, Normal Tone, Unable to Ambulate Integumentary Skin Exam: Clear, Warm, Dry, Intact Extremeties Extremities Exam: Pedal Pulses Palpable, Moderate Edema Neurologic Neuro Exam: Alert, Awake, Speech Clear, Moving All Extremities Psychiatric Psych Exam: Appropriate Responses Assessment/Plan Discussed Condition With: Patient Assessment Summary: CADY/Acute Renal Failure, Hypertension Electrolyte Assessment: Hypernatremia Problem List: (1) Acute kidney injury ICD Codes: N17.9 - Acute kidney failure, unspecified Status: Acute Plan: No baseline labs available for comparison renal failure was secondary to hyperglycemia/DKA and rhabdomyolysis s/p cardiac arrest with chest compressions. Renal function improving daily k 2.5 Replace potassium IV and orally PRBC 2 units Hb low Avoid nephrotoxic agents (2) Hypernatremia ICD Codes: E87.0 - Hyperosmolality and hypernatremia Status: Resolved Plan: Encouraged PO fliud intake (3) Pyrexia ICD Codes: R50.9 - Fever, unspecified Status: Acute Plan: ID consulted s/p LP Cultures negative On cefepime (4) Hyperglycemia ICD Codes: R73.9 - Hyperglycemia, unspecified Plan: resolving DKA maintain glucose 140-180 mg/dL while hospitalized He will need diabetic education (5) Hypokalemia ICD Codes: E87.6 - Hypokalemia Status: Acute Plan: continue to replace as needed follow labs Plan patient was seen and examined. Renal function and hypernatremia both have improved. Stop 1/4NS, encourage oral intake. We will see as needed. Problem Qualifiers (1) Pyrexia: Qualified Codes: R50.9 - Fever, unspecified Mack Rodriguez MD October 27, 2017 11:15
--- NOTE | 2017-10-27 15:31 | HHI.PR ---
Subjective Remarks Patient has been having loose stools, brown, several times a day. Not short of breath, no chest pain, no shortness of breath. Denies any headache. Patient also has a chronic rash on his scrotal area, not painful. Objective Vitals Vital Signs Date Time Temp Pulse Resp B/P (MAP) Pulse Ox O2 Delivery O2 Flow Rate FiO2 10/27/17 13:33 101 38 188/81 (116) 90 10/27/17 13:33 101 10/27/17 13:01 99 10/27/17 13:01 99 38 185/91 (122) 95 10/27/17 12:01 98 10/27/17 12:01 98 35 170/86 (114) 95 10/27/17 12:00 99 38 95 10/27/17 12:00 99 10/27/17 11:01 96 10/27/17 11:01 96 34 130/65 (86) 94 10/27/17 11:00 99.0 10/27/17 11:00 99 Nasal Cannula 2.00 21 10/27/17 10:01 97 10/27/17 10:01 97 37 151/76 (101) 98 10/27/17 10:00 95 10/27/17 10:00 95 36 97 10/27/17 09:00 100 10/27/17 09:00 100 31 167/78 (107) 95 10/27/17 08:48 99.0 93 15 155/74 100 10/27/17 08:23 98 41 155/74 (101) 97 10/27/17 08:23 98 10/27/17 08:21 98 33 210/86 (127) 98 10/27/17 08:21 98 10/27/17 08:01 93 10/27/17 08:01 93 38 192/88 (122) 96 10/27/17 08:00 97 10/27/17 08:00 97 37 95 10/27/17 07:28 98 Nasal Cannula 2.00 10/27/17 07:00 99 39 153/70 (97) 100 10/27/17 07:00 100 Nasal Cannula 2.00 10/27/17 04:00 98 10/27/17 04:00 99.4 98 33 159/87 (111) 98 10/27/17 03:00 96 Nasal Cannula 2.00 10/27/17 01:19 20 10/27/17 00:00 100.5 101 37 150/71 (97) 97 10/27/17 00:00 101 10/26/17 23:00 95 Nasal Cannula 2.00 10/26/17 22:06 94 Nasal Cannula 4.00 10/26/17 20:00 99.5 92 45 147/73 (97) 96 10/26/17 20:00 92 10/26/17 19:00 94 Room Air 21 10/26/17 16:00 91 I/O 10/26/17 10/26/17 10/26/17 10/27/17 10/27/17 10/27/17 07:00 15:00 23:00 07:00 15:00 23:00 Intake Total 1710 ml 300 ml 950 ml 1160 ml 1980 ml 100 ml Output Total 1650 ml 1650 ml 2120 ml Balance 60 ml 300 ml -700 ml -960 ml 1980 ml 100 ml Intake Oral 960 ml 850 ml 960 ml IV Total 750 ml 300 ml 100 ml 200 ml 300 ml 100 ml Packed Cells 800 ml Blood Product IV Normal Saline Flush 880 ml Output Urine Total 1650 ml 1650 ml 1920 ml Stool Total 200 ml # Bowel Movements 3 5 Result Diagram: 10/27/17 0333 10/27/17 0333 Objective Remarks GENERAL: 42-year-old AA male lying in bed, no acute distress. CARDIOVASCULAR: normal rate, RR. RESPIRATORY: Clear breath sounds, no wheezing. GASTROINTESTINAL: Abdomen soft, non-tender, nondistended. no guarding. MUSCULOSKELETAL: Extremities without significant pitting edema. No obvious deformities. NEUROLOGICAL: Alert awake, oriented 3, no obvious neurological deficits Date of Insertion: October 19, 2017 A/P Problem List: (1) Acute respiratory failure ICD Code: J96.00 - Acute respiratory failure, unspecified whether with hypoxia or hypercapnia (2) Acute encephalopathy ICD Code: G93.40 - Encephalopathy, unspecified Status: Acute (3) Normocytic anemia ICD Code: D64.9 - Anemia, unspecified (4) Lactic acidosis ICD Code: E87.2 - Acidosis Status: Acute (5) Hypoalbuminemia ICD Code: E88.09 - Other disorders of plasma-protein metabolism, not elsewhere classified (6) Hypophosphatemia ICD Code: E83.39 - Other disorders of phosphorus metabolism Status: Acute (7) Hypokalemia ICD Code: E87.6 - Hypokalemia Status: Acute (8) Hypermagnesemia ICD Code: E83.41 - Hypermagnesemia (9) Acute kidney injury ICD Code: N17.9 - Acute kidney failure, unspecified Status: Acute (10) Leukocytosis ICD Code: D72.829 - Elevated white blood cell count, unspecified Status: Acute (11) Hyponatremia ICD Code: E87.1 - Hypo-osmolality and hyponatremia Status: Acute (12) Hypertension ICD Code: I10 - Essential (primary) hypertension (13) Pyrexia ICD Code: R50.9 - Fever, unspecified Status: Acute (14) Depression ICD Code: F32.9 - Major depressive disorder, single episode, unspecified (15) Ketoacidosis due to secondary diabetes ICD Code: E13.10 - Other specified diabetes mellitus with ketoacidosis without coma Status: Acute (16) BMI 37.0-37.9, adult ICD Code: Z68.37 - Body mass index (BMI) 37.0-37.9, adult Status: Acute Assessment and Plan Assessment: 42yM with severe life-threatening electrolyte abnormalities and acute encephalopathy. clinically improving Acute toxic metabolic encephalopathy Depression/anxiety -CT head negative, MRI brain negative. LP showed xanthochromia, HSV negative 10/19 EEG-moderate to severe encephalopathy. Holding Quetiapine 100 mg daily, divalproex 250 mg daily and buspirone 10 mg p.o. 3 times daily/home medication along with hydroxyzine 10 mg p.o. 3 times daily Patient did received cyproheptadine 4 mg 1 for possible serotonin syndrome by ED physician Holding buspirone 10 mg daily, divalproex 250 mg daily/check level and ketamine 100 mg p.o. daily. Neurology Dr. Solis has signed off, EEG within normal limits, MRI within normal limits. Neurological exam is significantly improved Hypertension, uncontrolled-continue Norvasc, Coreg, restart lisinopril if okay with nephrology. Start hydralazine 50 mg 3 times a day Acute hypoxic and hypercarbic respiratory failure Extubated 10/24/2017, tolerating well, currently on nc o2. Albuterol/ipratropium aerosols every 6 hours with albuterol aerosols every 2 hours as needed dyspnea Possible upper GI bleed-continue Protonix for now. Diarrhea-check C. difficile PCR, patient with leukocytosis and on antibiotics. Stop Candace-Colace. Acute hyperglycemic state Ketoacidosis -Currently on q4h SSI. Levemir 5 U q12h, hemoglobin A1c 13, triglycerides 208. Monitor ABGs. Acute kidney injury- resolving. Recheck BMP tomorrow. Groin rash-could be fungal, start nystatin Leukocytosis Normocytic anemia Thrombocytopenia- improving. -Transfuse 2 units today, recheck CBC tomorrow. Sepsis, likely source pulmonary-continue cefepime, vancomycin and metronidazole stopped, CT scan of the chest showed multiple bilateral scattered interstitial and airspace infiltrates likely inflammatory. Gallbladder and renal ultrasound unremarkable. Infectious disease following. Cultures remain negative. CSF studies unremarkable. Hypokalemia Hypophosphatemia Hypermagnesemia Replace electrolytes as clinically indicated. On protocol. PT evaluate and treat Prophylaxis GI -pantoprazole DVT -Lovenox Transfer to [facility] Problem Qualifiers (1) Acute respiratory failure: Qualified Codes: J96.01 - Acute respiratory failure with hypoxia; J96.02 - Acute respiratory failure with hypercapnia (2) Pyrexia: Qualified Codes: R50.9 - Fever, unspecified (3) Depression: Qualified Codes: F32.9 - Major depressive disorder, single episode, unspecified Angelina Roberto MD October 27, 2017 15:31
--- NOTE | 2017-10-27 17:00 | HHI.IDPN ---
Subjective Subjective Remarks Patient is a 42-year-old male, brought into the hospital for evaluation of multiple symptoms. He apparently has been having problem with poor p.o. intake , and thirst and increasing fluid intake. There is also mention that he has had problem with nausea and vomiting and some confusion. The symptoms have been going on for about a month. Was brought into the emergency room, and he was found to have a blood sugar of 1800, creatinine was up to 3, sodium 21, and he has multiple abnormal electrolytes. He also had acidosis, and high fevers. His white count was elevated. In the ED he became more unresponsive, and he ended up getting intubated. He was initially on pressors. He was also found to have a very elevated CPK. His electrolytes stabilized, and his acidosis improved. Creatinine improved, and he has improvement in his urine output. He had 2 blood cultures done and those are negative. He was started on empiric antibiotics for possible aspiration. Initial urinalysis was unremarkable. Patient remains on the vent. His mental status still has not improved. Neurology has been consulted. Patient's temperatures seem to have improved. His chest x-ray showing bilateral pulmonary infiltrates and some nodular infiltrates. He has been getting vancomycin, cefepime, and Flagyl. His CPKs are still elevated, and his LFTs were also elevated. Patient also during his hospitalization had episode of V. tach and was resuscitated successfully. Infectious disease consultation has been requested to evaluate patient with high fevers. Notes reviewed Temps ok BP ok Had drop in Hgb to 6.6 Has been extubated 10/24 Not SOB No CP No N/V; swallowing ok Sputum C/S normal resp radha CSF, mild pleocytosis, (+) RBC, glucose ok, sl elevated protein CT head no contrast negative Brain MRI negative CT chest - aishwarya infiltrates WBC remains very high >30K HSV in CSF negative Antibiotics Cefepime Current Medications Medications (Trade) Dose Ordered Sig/Jacky Route Start Time Stop Time Status Last Admin (NS Flush) 2 ml UNSCH PRN IV FLUSH 10/19/17 02:30 (NS Flush) 2 ml BID IV FLUSH 10/19/17 09:00 10/27/17 08:38 (Albuterol Neb) 2.5 mg Q2HR NEB PRN INH 10/19/17 02:30 10/24/17 08:36 ([facility] Nursing Information) 1 Q361D XX 10/19/17 02:30 10/19/17 02:30 (Chlorhexidine 2% Cloth) Taper DAILY@04 TOP 10/19/17 04:00 10/15/18 03:59 10/27/17 04:00 (Chlorhexidine 2% Cloth) 3 pack UNSCH PRN TOP 10/19/17 02:30 (Milk Of Magnesia Liq) 30 ml Q12H PRN PO 10/19/17 02:30 Future Hold (Senokot) 17.2 mg Q12H PRN PO 10/19/17 02:30 Future Hold (Dulcolax Supp) 10 mg DAILY PRN RECTAL 10/19/17 02:30 (Zofran Odt) 4 mg Q6H PRN PO 10/19/17 02:30 (Tears Naturale Opth Soln) 1 drop Q8HR EACH EYE 10/19/17 06:00 10/27/17 04:26 (Peridex 0.12% Liq) 15 ml BID@08,20 MT 10/19/17 08:00 10/24/17 08:17 Acetaminophen 100 ml @ 400 mls/hr Q8H PRN IV 10/19/17 03:30 10/27/17 00:49 (Glucagon Inj) 1 mg UNSCH PRN OTHER 10/19/17 04:15 (Brethine Inj) 1 mg UNSCH PRN SQ 10/19/17 07:45 (D50w (Vial) Inj) 50 ml UNSCH PRN IV PUSH 10/19/17 23:30 10/23/17 05:24 (Lactulose Liq) 30 ml DAILY PRN PO 10/23/17 21:30 Future Hold (D50w (Vial) Inj) 50 ml UNSCH PRN IV PUSH 10/24/17 21:00 (Glucagon Inj) 1 mg UNSCH PRN OTHER 10/24/17 21:00 Cefepime HCl 2000 mg/Sodium Chloride 100 ml @ 200 mls/hr Q12H IV 10/25/17 09:00 10/27/17 08:37 (Levemir Inj) 5 units Q12HR SQ 10/25/17 10:00 10/27/17 08:36 (Norvasc) 10 mg DAILY PO 10/26/17 09:00 10/27/17 08:37 (Coreg) 3.125 mg Q12HR PO 10/25/17 09:45 10/27/17 08:37 (Duoneb Neb) 1 ampule Q8HR NEB NEB 10/25/17 16:00 10/27/17 07:27 (Lovenox Inj) 40 mg Q24H SQ 10/26/17 08:00 10/27/17 08:37 Potassium Chloride 100 ml @ 50 mls/hr Q2H PRN IV 10/27/17 05:15 Potassium Chloride 100 ml @ 50 mls/hr Q2H PRN IV 10/27/17 05:15 10/27/17 11:33 (K-Lyte Cl Eff) 50 meq UNSCH PRN PO 10/27/17 05:15 Potassium Chloride 100 ml @ 25 mls/hr UNSCH PRN IV 10/27/17 05:15 Potassium Chloride 100 ml @ 50 mls/hr Q2H PRN IV 10/27/17 05:15 Magnesium Sulfate 4 gm/Sodium Chloride 100 ml @ 50 mls/hr UNSCH PRN IV 10/27/17 05:15 (Mag-Ox) 800 mg UNSCH PRN PO 10/27/17 05:15 Magnesium Sulfate 2 gm/Sodium Chloride 100 ml @ 50 mls/hr UNSCH PRN IV 10/27/17 05:15 (K-Phos) 2,000 mg Q4H PRN PO 10/27/17 05:15 Sodium Phosphate 30 mmol/Sodium Chloride 250 ml @ 42 mls/hr UNSCH PRN IV 10/27/17 05:15 10/27/17 11:32 (K-Phos) 2,000 mg UNSCH PRN PO/TUBE 10/27/17 05:15 Potassium Phosphate 30 mmol/ Sodium Chloride 260 ml @ 42 mls/hr UNSCH PRN IV 10/27/17 05:15 (Protonix) 40 mg Q12HR PO 10/27/17 21:00 (Apresoline) 50 mg Q8HR PO 10/27/17 22:00 (NovoLOG SUPPLEMENTAL SCALE) 1 ACHS SLIDING SCALE SQ 10/27/17 17:00 (Mycostatin Powder) 1 applic Q12HR TOPICAL 10/27/17 21:00 Lines Line no evidence of infection Past Medical History Depression/anxiety Hypertension NSAID use Allergies: Coded Allergies: No Known Allergies (Unverified Allergy, Unknown, 10/18/17) Objective . Vital Signs Date Time Temp Pulse Resp B/P (MAP) Pulse Ox O2 Delivery O2 Flow Rate FiO2 10/27/17 13:33 101 38 188/81 (116) 90 10/27/17 13:33 101 10/27/17 13:01 99 10/27/17 13:01 99 38 185/91 (122) 95 10/27/17 12:01 98 10/27/17 12:01 98 35 170/86 (114) 95 10/27/17 12:00 99 38 95 10/27/17 12:00 99 10/27/17 11:01 96 10/27/17 11:01 96 34 130/65 (86) 94 10/27/17 11:00 99.0 10/27/17 11:00 99 Nasal Cannula 2.00 21 10/27/17 10:01 97 10/27/17 10:01 97 37 151/76 (101) 98 10/27/17 10:00 95 10/27/17 10:00 95 36 97 10/27/17 09:00 100 10/27/17 09:00 100 31 167/78 (107) 95 10/27/17 08:48 99.0 93 15 155/74 100 10/27/17 08:23 98 41 155/74 (101) 97 10/27/17 08:23 98 10/27/17 08:21 98 33 210/86 (127) 98 10/27/17 08:21 98 10/27/17 08:01 93 10/27/17 08:01 93 38 192/88 (122) 96 10/27/17 08:00 97 10/27/17 08:00 97 37 95 10/27/17 07:28 98 Nasal Cannula 2.00 10/27/17 07:00 99 39 153/70 (97) 100 10/27/17 07:00 100 Nasal Cannula 2.00 10/27/17 04:00 98 10/27/17 04:00 99.4 98 33 159/87 (111) 98 10/27/17 03:00 96 Nasal Cannula 2.00 10/27/17 01:19 20 10/27/17 00:00 100.5 101 37 150/71 (97) 97 10/27/17 00:00 101 10/26/17 23:00 95 Nasal Cannula 2.00 10/26/17 22:06 94 Nasal Cannula 4.00 10/26/17 20:00 99.5 92 45 147/73 (97) 96 10/26/17 20:00 92 10/26/17 19:00 94 Room Air 21 10/27/17 10/27/17 10/28/17 15:00 23:00 07:00 Intake Total 1980 ml 350 ml Balance 1980 ml 350 ml IV Total 300 ml 350 ml Packed Cells 800 ml Blood Product IV Normal Saline Flush 880 ml . Laboratory Tests Test 10/26/17 06:32 10/27/17 03:33 White Blood Count 35.1 TH/MM3 33.6 TH/MM3 Red Blood Count 2.90 MIL/MM3 2.54 MIL/MM3 Hemoglobin 7.6 GM/DL 6.6 GM/DL Hematocrit 22.4 % 19.6 % Mean Corpuscular Volume 77.3 FL 77.3 FL Mean Corpuscular Hemoglobin 26.3 PG 26.2 PG Mean Corpuscular Hemoglobin Concent 34.0 % 33.9 % Red Cell Distribution Width 15.8 % 15.7 % Platelet Count 275 TH/MM3 292 TH/MM3 Mean Platelet Volume 9.4 FL 9.6 FL Neutrophils (%) (Auto) 74.4 % Lymphocytes (%) (Auto) 12.0 % Monocytes (%) (Auto) 11.8 % Eosinophils (%) (Auto) 1.4 % Basophils (%) (Auto) 0.4 % Neutrophils # (Auto) 26.1 TH/MM3 Lymphocytes # (Auto) 4.2 TH/MM3 Monocytes # (Auto) 4.1 TH/MM3 Eosinophils # (Auto) 0.5 TH/MM3 Basophils # (Auto) 0.2 TH/MM3 CBC Comment AUTO DIFF Differential Total Cells Counted 100 Neutrophils % (Manual) 62 % Band Neutrophils % 17 % Lymphocytes % 8 % Monocytes % 8 % Basophils % 1 % Neutrophils # (Manual) 29.1 TH/MM3 Metamyelocytes 3 % Myelocytes 1 % Nucleated Red Blood Cells 3 /100 WBC Differential Comment FINAL DIFF MANUAL Toxic Granulation 1+ Platelet Estimate NORMAL Platelet Morphology Comment ENLARGED Polychromasia 2.0 % Target Cells 1+ Laboratory Tests Test 10/26/17 06:32 10/27/17 03:33 Blood Urea Nitrogen 40 MG/DL 30 MG/DL Creatinine 1.89 MG/DL 1.69 MG/DL Random Glucose 173 MG/DL 172 MG/DL Total Protein 5.6 GM/DL Albumin 1.9 GM/DL Calcium Level 8.1 MG/DL 7.5 MG/DL Magnesium Level 2.3 MG/DL Alkaline Phosphatase 294 U/L Aspartate Amino Transf (AST/SGOT) 163 U/L Alanine Aminotransferase (ALT/SGPT) 328 U/L Total Bilirubin 0.6 MG/DL Sodium Level 146 MEQ/L 145 MEQ/L Potassium Level 2.7 MEQ/L 2.5 MEQ/L Chloride Level 111 MEQ/L 108 MEQ/L Carbon Dioxide Level 23.8 MEQ/L 26.6 MEQ/L Anion Gap 11 MEQ/L 10 MEQ/L Estimat Glomerular Filtration Rate 48 ML/MIN 55 ML/MIN Phosphorus Level 2.1 MG/DL Imaging Last 72 hours Impressions Chest X-Ray 10/24/17 0600 Signed Impressions: CONCLUSION: No significant change. Bilateral pulmonary opacities remain. Head CT 10/24/17 Signed Impressions: CONCLUSION: 1. No acute intracranial abnormality. Gall Bladder Ultrasound 10/23/17 Signed Impressions: CONCLUSION: 1. There is increased echogenicity of the liver suggestive of fatty infiltrati on and/or hepatocellular disease. 2. No evidence of gallstones or biliary tract obstruction. Chest X-Ray 10/23/17 Signed Impressions: CONCLUSION: Scattered bilateral pulmonary infiltrates. Last Impressions Gall Bladder Ultrasound 10/23/17 Signed Impressions: CONCLUSION: Chest X-Ray 10/23/17 Signed Impressions: CONCLUSION: Scattered bilateral pulmonary infiltrates. Renal Ultrasound 10/19/17 Signed Impressions: Service Date/Time: Thursday, October 19, 2017 09:46 - CONCLUSION: Normal examination. Alexx Baig MD Physical Exam GENERAL: Awake and alert, NAD. SKIN: Cool and dry. No generalized rash. HEAD: Atraumatic. Normocephalic. No temporal wasting, or tenderness. EYES: [place] conjunctiva. No petechia or hemorrhage. Pupils unequal, round, L larger than R. Has dirty sclera. EARS, NOSE AND THROAT: Nose without bleeding or purulent nasal discharge. Moist mucosa NECK: Trachea midline. Supple and not tender, no meningeal signs CARDIOVASCULAR: Regular rate and rhythm. No murmurs, rubs or gallops heard RESPIRATORY: Decreased BS at bases ABDOMEN: Distended, not tender, not guarding, bowel sounds present and hypoactive. EXTREMITIES: Warm, has pitting edema NEUROLOGICAL: Grossly non-focal PSYCHIATRIC: Calm and cooperative LINE: No evidence of infection Assessment & Plan Remarks IMPRESSION Possible sepsis on initial presentation with fevers, dec LOC, MOSF - source possible lung, has aishwarya nodular infiltrates, BC negative, no sputum C/S DM, DKA Elevated CPK Elevated LFTs Renal failure Acidosis, resolved Encephalopathy, ?metabolic, or [employer] etiology Leukocytosis, worse Anemia RECOMMENDATION Continue Cefepime Follow CBC CT A/P - eval retroperitoneal bleed Follow temps Monitor progress D/W Haley Lang MD October 27, 2017 17:00
[2017-10-27] MEDS ORDERED: DIATRIZOATE MEGLUM/DIATRIZOATE SOD 9 ML CUP PO ONE (17:10)
[2017-10-27] MEDS: PANTOPRAZOLE SOD 40 MG DELAYED RELEASE TAB PO SCH (19:26)
[2017-10-27 19:52] LABS: VZV PCR RESULT <500 (<500 copies)
[2017-10-27] MEDS: NYSTATIN 100,000 U/GM PWD 15 GM BTL TOPICAL SCH (21:00)
[2017-10-27] MEDS: hydrALAZINE HCL 50 MG TAB PO SCH (22:16)
--- NOTE | 2017-10-27 22:28 | RADRPT ---
EXAM DATE: 10/27/2017 10:15 PM EDT AGE/SEX: 42 years / Male INDICATIONS: Evaluate for retroperitoneal bleed. Low HGB and HCT. CLINICAL DATA: This is the patient's initial encounter. Patient reports that signs and symptoms have been present for 2 days and indicates a pain score of 0/10. MEDICAL/SURGICAL HISTORY: Hypertension. Cardiovascular disease. Substance abuse None. RADIATION DOSE: 13.95 CTDI (mGy) COMPARISON: No prior [facility] exams available for comparison. TECHNIQUE: Multiple contiguous axial images were obtained through the abdomen. Images were obtained using multiple row detector helical technique. Using dose reduction techniques, radiation dose was ke pt as low as reasonably achievable to obtain optimal diagnostic quality images. FINDINGS: Lower Lungs: Subsegmental airspace disease and small effusions are identified in both lung bases. Liver: Patchy areas of hypodensity are present throughout both the right and left hepatic lobes. Thes e are predominantly subcapsular in location. There is no evidence of adjacent fluid. There is no evid ence of biliary duct dilatation. Gallbladder is collapsed. Spleen: Spleen is small. Patchy areas of hypodensity are present. There is no evidence of adjacent f luid collection. Pancreas: Unremarkable without mass or calcification. Kidneys: Normal in size and shape. No evidence of mass or hydronephrosis. Adrenal Glands: Unremarkable. Aorta: The aorta and proximal iliac vessels are grossly unremarkable without aneurysmal dilation. Bowel/Mesentery: The bowel loops are grossly unremarkable. The cecum and sigmoid colon have a normal configuration. Abdominal Wall: Subcutaneous edema is identified especially in the proximal thighs. Retroperitoneum: No evidence of adenopathy in the retrocrural, para-aortic, or deep pelvic regions. Bladder: Small gas bubble is identified within the bladder. There is no evidence of intrinsic mass o r bladder wall thickening. Reproductive Organs: No abnormal masses or calcifications seen. Inguinal: The inguinal region is unremarkable without evidence of adenopathy. Bony Structures: Unremarkable. CONCLUSION: 1. No evidence of retroperitoneal hemorrhage. 2. Bibasilar subsegmental airspace disease and small bilateral effusions. 3. Patchy areas of hypodensity throughout the liver and spleen of uncertain etiology. Considering yamil matias's history a septic vascular embolic process should be considered. 4. Minimal air in the urinary bladder. 5. Developing anasarca. Electronically signed by: Daryl Parrish MD 10/27/2017 10:27 PM EDT
[2017-10-28] VITALS (9 sets, daily range): BP systolic 131–165; BP diastolic 60–98; PULSE 95–108; RESP 18–26; TEMP 98.2–100.1; O2SAT 90–93
[2017-10-28] MEDS: RESP: ALBUTEROL 2.5 MG/IPRATROPIUM 0.5 MG NEB (SCH) NEB ×4 (00:23→23:40)
[2017-10-28] MEDS: CHLORHEXIDINE GLUCONATE 2 % 1 PACK (2 CLOTHS) TOP SCH (03:27)
[2017-10-28 04:26] LABS: AUTOMATED NEUTROPHIL # 25.2 TH/MM3 (1.8-7.7); BASOPHIL # 0.2 TH/MM3 (0-0.2); BASOPHIL % 0.5 % (0.0-2.0); EOSINOPHIL # 0.2 TH/MM3 (0-0.4); EOSINOPHIL % 0.6 % (0.0-4.0); HEMATOCRIT 25.2 % (39.0-51.0); HEMOGLOBIN 8.6 GM/DL (13.0-17.0); LYMPH % 9.4 % (9.0-44.0); LYMPHOCYTE # 2.9 TH/MM3 (1.0-4.8); MEAN CELL VOLUME 78.7 FL (80.0-100.0); MEAN CORPUSCULAR HEMOGLOBIN 26.8 PG (27.0-34.0); MEAN CORPUSCULAR HGB CONC 34.1 % (32.0-36.0); MEAN PLATELET VOLUME 9.3 FL (7.0-11.0); MONO % 9.3 % (0.0-8.0); MONOCYTE # 2.9 TH/MM3 (0-0.9); NEUT % 80.2 % (16.0-70.0); PLATELET COUNT 325 TH/MM3 (150-450); RED CELL DISTRIBUTION WIDTH 16.6 % (11.6-17.2); WHITE BLOOD COUNT 31.4 TH/MM3 (4.0-11.0)
[2017-10-28 04:48] LABS: BICARBONATE 21.9 MEQ/L (21.0-32.0); CALCIUM 7.5 MG/DL (8.5-10.1); CREATININE 1.38 MG/DL (0.60-1.30)
[2017-10-28] MEDS: hydrALAZINE HCL 50 MG TAB PO SCH ×3 (05:11→22:14)
[2017-10-28] MEDS: ARTIFICIAL TEARS OPTH SOLN 15 ML BTL EACH EYE SCH ×3 (05:11→22:00)
[2017-10-28] MEDS ORDERED: POTASSIUM CHLORIDE 20 MEQ CONTROLLED RELEASE TAB PO ONE (05:30)
[2017-10-28] MEDS: CHLORHEXIDINE 0.12% (ORAL KIT) 15 ML CUP MT SCH ×2 (08:00→20:00)
[2017-10-28] MEDS: INSULIN ASPART SUPPLEMENTAL SCALE SQ SCH ×4 (08:00→22:18)
[2017-10-28 08:01] LABS: BANDS 9 % (0-6); CORRECTED NUCLEATED RBC 4 /100 WBC (0-0); LYMPHOCYTES 8 % (9-44); METAMYELOCYTES 1 % (0-1); MONOCYTES 4 % (0-8); NUCLEATED RED BLOOD CELL 4 (0-0); POLYS (SEG NEUTROPHILS) 76 % (16-70)
[2017-10-28 08:02] LABS: TARGET CELLS 1+ (NORMAL); TOXIC GRANULATION 1+ (NORMAL)
[2017-10-28] MEDS: NYSTATIN 100,000 U/GM PWD 15 GM BTL TOPICAL SCH ×2 (09:00→21:00)
[2017-10-28] MEDS: CARVEDILOL 3.125 MG TAB PO SCH ×2 (09:22→22:14)
[2017-10-28] MEDS: PANTOPRAZOLE SOD 40 MG DELAYED RELEASE TAB PO SCH ×2 (09:22→22:14)
[2017-10-28] MEDS: ENOXAPARIN SODIUM 40 MG/0.4 ML SYRINGE SQ SCH (09:22)
[2017-10-28] MEDS: SODIUM CHLORIDE 0.9% FLUSH 10 ML FLUSH IV FLUSH SCH ×2 (09:23→22:15)
[2017-10-28] MEDS: CEFEPIME INJ 2,000 MG in SODIUM CHLORIDE 0.9% INJ 100 ML IV SCH ×2 (09:23→22:15)
[2017-10-28] MEDS: INSULIN DETEMIR 100 UNITS/ML VIAL SQ SCH ×2 (10:12→22:17)
--- NOTE | 2017-10-28 10:38 | HHI.PR ---
Subjective Remarks in no acute distress. has mild periumbilical pain. still with diarrhea. T max 100.3. Objective Vitals Vital Signs Date Time Temp Pulse Resp B/P (MAP) Pulse Ox O2 Delivery O2 Flow Rate FiO2 10/28/17 09:36 93 10/28/17 08:49 100.0 103 18 163/79 (107) 90 10/28/17 04:00 Room Air 10/28/17 04:00 99.3 95 20 165/89 (114) 92 10/28/17 04:00 100 10/28/17 00:30 Room Air 10/28/17 00:30 103 10/28/17 00:00 100.1 101 24 164/98 (120) 92 10/27/17 23:30 100.3 94 22 160/72 (101) 94 10/27/17 23:00 91 Room Air 10/27/17 23:00 97 20 188/104 (132) 92 10/27/17 22:00 109 10/27/17 21:15 95 21 10/27/17 20:00 95 10/27/17 20:00 99.8 95 28 96 10/27/17 19:00 98 Room Air 10/27/17 19:00 Room Air 10/27/17 18:20 99 2.00 10/27/17 18:01 100 27 175/80 (111) 95 10/27/17 18:01 100 10/27/17 18:00 101 42 96 10/27/17 17:01 95 10/27/17 17:01 95 35 157/74 (101) 95 10/27/17 17:00 95 10/27/17 16:01 98 38 147/70 (95) 95 10/27/17 16:00 97 39 94 10/27/17 13:33 101 38 188/81 (116) 90 10/27/17 13:33 101 10/27/17 13:01 99 10/27/17 13:01 99 38 185/91 (122) 95 10/27/17 12:01 98 10/27/17 12:01 98 35 170/86 (114) 95 10/27/17 12:00 99 38 95 10/27/17 12:00 99 10/27/17 11:01 96 10/27/17 11:01 96 34 130/65 (86) 94 10/27/17 11:00 99.0 10/27/17 11:00 99 Nasal Cannula 2.00 21 I/O 10/27/17 10/27/17 10/27/17 10/28/17 10/28/17 10/28/17 07:00 15:00 23:00 07:00 15:00 23:00 Intake Total 1160 ml 1980 ml 1750 ml 160 ml Output Total 2120 ml 1900 ml Balance -960 ml 1980 ml -150 ml 160 ml Intake Oral 960 ml 1400 ml 160 ml IV Total 200 ml 300 ml 350 ml Packed Cells 800 ml Blood Product IV Normal Saline Flush 880 ml Output Urine Total 1920 ml 1900 ml Stool Total 200 ml # Voids 3 # Bowel Movements 10 Result Diagram: 10/28/17 0353 10/28/17 0353 Imaging Last Impressions Abdomen/Pelvis CT 10/27/17 0000 Signed Impressions: CONCLUSION: 1. No evidence of retroperitoneal hemorrhage. 2. Bibasilar subsegmental airspace disease and small bilateral effusions. 3. Patchy areas of hypodensity throughout the liver and spleen of uncertain et iology. Considering patient's history a septic vascular embolic process should be considered. 4. Minimal air in the urinary bladder. 5. Developing anasarca. Chest X-Ray 10/26/17 0600 Signed Impressions: CONCLUSION: Diffuse consolidation likely related to diffuse underlying processes such as ed aaron or diffuse inflammatory change. Chest CT 10/25/17 0000 Signed Impressions: CONCLUSION: 1. Multiple bilateral scattered interstitial and airspace infiltrates througho ut both lung yuen suggestive of some type of inflammatory process. 2. Abnormal appearance of the liver. Recommend CT scan of the abdomen with IV contrast for further evaluation. Brain MRI 10/25/17 0000 Signed Impressions: CONCLUSION: 1. Unremarkable MRI examination of the brain. Specifically, no cerebral edema or diffusion abnormality to suggest encephalitis. Head CT 10/24/17 0000 Signed Impressions: CONCLUSION: 1. No acute intracranial abnormality. Gall Bladder Ultrasound 10/23/17 Signed Impressions: CONCLUSION: 1. There is increased echogenicity of the liver suggestive of fatty infiltrati on and/or hepatocellular disease. 2. No evidence of gallstones or biliary tract obstruction. Renal Ultrasound 10/19/17 Signed Impressions: Service Date/Time: Thursday, October 19, 2017 09:46 - CONCLUSION: Normal examination. Alexx Baig MD Objective Remarks GENERAL: This is a well-nourished, well-developed patient, in no apparent distress. CARDIOVASCULAR: Regular rate and regular rhythm without murmurs, gallops, or rubs. RESPIRATORY: Clear to auscultation. Breath sounds equal bilaterally. No wheezes , rales, or rhonchi. GASTROINTESTINAL: Abdomen soft, non-tender, nondistended. Normal, active bowel sounds MUSCULOSKELETAL: Extremities without clubbing, cyanosis, or edema. NEURO: Alert & Oriented x4 to person, place, time, situation. Moves all ext x4 Medications and IVs Inpatient Medications Acetaminophen 100 ml @ 400 mls/hr Q8H PRN IV fever Last administered on at 00:49; Start 10/19/17 at 03:30 Acetaminophen (Tylenol Supp) 650 mg ONCE ONCE RECTAL Last administered on 10/18at 23:00; Start 10/18/17 at 23:00; Stop 10/18/17 at 23:01; Status DC Albuterol Sulfate (Albuterol Neb) 2.5 mg Q2HR NEB PRN INH SOB/WHEEZING Last administered on 10/24/17at 08:36; Start 10/19/17 at 02:30 Albuterol/ Ipratropium (Duoneb Neb) 1 ampule Q8HR NEB NEB Last administered on 10/28/17at 09:34; Start 10/25/17 at 16:00 Amlodipine Besylate (Norvasc) 10 mg DAILY PO Last administered on 10/28/17at 09: 22; Start 10/26/17 at 09:00 Artificial Tears (Tears Naturale Opth Soln) 1 drop Q8HR EACH EYE Last administered on 10/27/17at 20:12; Start 10/19/17 at 06:00 Bisacodyl (Dulcolax Supp) 10 mg DAILY PRN RECTAL SEVERE CONSITIPATION; Start at 02:30 Calcium Chloride (Calcium Chloride Inj) 1 gm ONCE IV PUSH ; Start 10/19/17 at 16 :15; Stop 10/19/17 at 17:00; Status DC Calcium Gluconate (Calcium Gluconate Inj) 1 gm ONCE ONCE IV PUSH ; Start at 01:45; Stop 10/19/17 at 01:46; Status DC Carvedilol (Coreg) 3.125 mg Q12HR PO Last administered on 10/28/17at 09:22; Start 10/25/17 at 09:45 Cefepime HCl 2000 mg/Sodium Chloride 100 ml @ 200 mls/hr Q12H IV Last administered on 10/28/17at 09:23; Start 10/25/17 at 09:00 Ceftriaxone Sodium 1000 mg/ Sodium Chloride 100 ml @ 200 mls/hr ONCE ONCE IV Last administered on 10/18/17at 23:34; Start 10/18/17 at 23:30; Stop 10/19/17 at 00:03; Status DC Chlorhexidine Gluconate (Chlorhexidine 2% Cloth) 3 pack UNSCH PRN TOP HYGIENIC CARE; Start 10/19/17 at 02:30 Chlorhexidine Gluconate (Peridex 0.12% Liq) 15 ml BID@08,20 MT Last administered on 10/24/17at 08:17; Start 10/19/17 at 08:00 Chlorothiazide Sodium (Diuril Inj) 500 mg ONCE ONCE IV Last administered on at 13:17; Start 10/25/17 at 10:45; Stop 10/25/17 at 10:55; Status DC Cyproheptadine HCl (Periactin Liq) 4 mg ONCE ONCE PO ; Start 10/18/17 at 23:00 ; Stop 10/18/17 at 23:01; Status DC Dextrose (D50w (Vial) Inj) 50 ml UNSCH PRN IV PUSH HYPOGLYCEMIA-SEE COMMENTS; Start 10/24/17 at 21:00 Diatrizoate Meglum/ Diatrizoate Sod ( Gastroview Liq) 18 ml ONCE ONCE PO Last administered on 10/27/17at 20:02; Start 10/27/17 at 17:10; Stop 10/27/17 at 17:37; Status DC Enoxaparin Sodium (Lovenox Inj) 40 mg Q24H SQ Last administered on 10/28/17at 09 :22; Start 10/26/17 at 08:00 Etomidate (Amidate Inj) 10 mg ONCE ONCE IV PUSH Last administered on at 02:58; Start 10/19/17 at 03:00; Stop 10/19/17 at 03:03; Status DC Fentanyl Citrate 250 ml @ 5 mls/hr TITRATE PRN IV SEDATION Last administered on 10/24/17at 01:34; Start 10/23/17 at 18:00; Stop 10/24/17 at 17:39; Status DC Furosemide (Lasix Inj) 40 mg ONCE ONCE IV PUSH Last administered on 10/26/17at 12:38; Start 10/26/17 at 08:00; Stop 10/26/17 at 08:07; Status DC Glucagon (Glucagon Inj) 1 mg UNSCH PRN OTHER HYPOGLYCEMIA-SEE COMMENTS; Start 10/24/17 at 21:00 Hydralazine HCl (Apresoline) 50 mg Q8HR PO Last administered on 10/28/17at 05:11 ; Start 10/27/17 at 22:00 Insulin Aspart (NovoLOG SUPPLEMENTAL SCALE) 1 ACHS SLIDING SCALE SQ Last administered on 10/28/17at 08:00; Start 10/27/17 at 17:00 Insulin Detemir (Levemir Inj) 5 units Q12HR SQ Last administered on 10/28/17at 10:12; Start 10/25/17 at 10:00 Insulin Human Regular 100 ml @ 0 mls/hr ONCE ONCE IV Last administered on 10/19at 00:00; Start 10/18/17 at 23:30; Stop 10/18/17 at 23:39; Status DC Insulin Human Regular (NovoLIN R INJ) 10 units ONCE ONCE IV PUSH Last administered on 10/18/17at 23:34; Start 10/18/17 at 23:30; Stop 10/18/17 at 23:31 ; Status DC Insulin Human Regular 100 units/ Sodium Chloride 100 ml @ 2 mls/hr TITRATE PRN IV Blood Glucose Control Last administered on 10/23/17at 04:08; Start 10/20/17 at 01:45; Stop 10/24/17 at 20:50; Status DC Ketorolac Tromethamine (Toradol Inj) 30 mg ONCE ONCE IV PUSH Last administered on 10/18/17at 23:00; Start 10/18/17 at 23:00; Stop 10/18/17 at 23:01 ; Status DC Lactated Ringer's 1,000 ml @ 150 mls/hr Q6H40M IV Last administered on at 09:09; Start 10/21/17 at 14:00; Stop 10/22/17 at 10:58; Status DC Lactulose (Lactulose Liq) 30 ml DAILY PRN PO SEVERE CONSITIPATION; Start at 21:30; Status Future Hold Lorazepam (Ativan Inj) 1 mg ONCE ONCE IV PUSH Last administered on 10/19/17at 00:35; Start 10/19/17 at 00:15; Stop 10/19/17 at 00:16; Status DC Magnesium Hydroxide (Milk Of Magnesia Liq) 30 ml Q12H PRN PO Mild constipation ; Start 10/19/17 at 02:30; Status Future Hold Magnesium Oxide (Mag-Ox) 800 mg UNSCH PRN PO For Magnesium 1.2 - 1.6 mg/dL; Start 10/27/17 at 05:15; Stop 10/28/17 at 07:50; Status DC Magnesium Sulfate 2 gm/Sodium Chloride 100 ml @ 50 mls/hr UNSCH PRN IV For Magnesium 1.2 - 1.6 mg/dL; Start 10/27/17 at 05:15; Stop 10/28/17 at 07:50; Status DC Magnesium Sulfate 4 gm/Sodium Chloride 100 ml @ 50 mls/hr UNSCH PRN IV For Magnesium 0.9 - 1.1 mg/dL; Start 10/27/17 at 05:15; Stop 10/28/17 at 07:50; Status DC Metronidazole 100 ml @ 100 mls/hr Q6H IV Last administered on 10/25/17at 06:25 ; Start 10/19/17 at 04:00; Stop 10/25/17 at 08:11; Status DC Midazolam HCl (Versed Inj) 4 mg NOW ONCE IV Last administered on 10/23/17at 15: 20; Start 10/23/17 at 15:15; Stop 10/23/17 at 15:16; Status DC Miscellaneous Information 1 ONCE ONCE OTHER Last administered on 10/19/17at 23: 30; Start 10/19/17 at 23:30; Stop 10/19/17 at 23:31; Status DC Miscellaneous Information [place] [place] 1 [id number] XX Last administered on 10/19/17at 02:30; Start 10/19/17 at 02:30 Morphine Sulfate (Morphine Inj) 2 mg Q2H PRN IV PUSH PAIN SCALE 6 TO 10 Last administered on 10/25/17at 06:26; Start 10/19/17 at 02:30; Stop 10/25/17 at 09:33 ; Status DC Norepinephrine Bitartrate 4 mg/ Sodium Chloride 250 ml @ 7.5 mls/hr TITRATE PRN IV Blood pressure management Last administered on 10/20/17at 06:30; Start at 03:30; Stop 10/23/17 at 08:34; Status DC Nystatin (Mycostatin Powder) 1 applic Q12HR TOPICAL ; Start 10/27/17 at 21:00 Ondansetron HCl (Zofran Odt) 4 mg Q6H PRN PO NAUSEA OR VOMITING; Start at 02:30 Ondansetron HCl (Zofran Inj) 4 mg Q6H PRN IV PUSH NAUSEA OR VOMITING; Start at 02:30; Stop 10/19/17 at 02:30; Status DC Pantoprazole Sodium (Protonix Inj) 40 mg BID IV PUSH Last administered on at 08:37; Start 10/19/17 at 09:00; Stop 10/27/17 at 16:20; Status DC Pantoprazole Sodium (Protonix) 40 mg Q12HR PO Last administered on 10/28/17at 09 :22; Start 10/27/17 at 21:00 Pharmacy Profile Note 0 ml @ 0 mls/hr UNSCH OTHER ; Start 10/19/17 at 04:00; Stop 10/21/17 at 16:48; Status DC Phenylephrine HCl 40 mg/Dextrose 500 ml @ 30 mls/hr TITRATE PRN IV Blood Pressure Management Last administered on 10/20/17at 01:55; Start 10/19/17 at 07: 45; Stop 10/21/17 at 16:48; Status DC Potassium Chloride 40 meq/ Sodium Chloride 520 ml @ 130 mls/hr ONCE ONCE IV- CENTRAL Last administered on 10/20/17at 13:49; Start 10/20/17 at 13:00; Stop at 16:59; Status DC Potassium Chloride 40 meq/ Sodium Chloride 38.5 meq/Sterile Water 1,029.625 ml @ 150 mls/hr Q6H52M IV Last administered on 10/19/17at 10:27; Start 10/19/17 at 02:45; Stop 10/19/17 at 14:22; Status DC Potassium Chloride/Sodium Chloride 1,000 ml @ 125 mls/hr Q8H IV Last administered on 10/19/17at 00:36; Start 10/19/17 at 00:15; Stop 10/19/17 at 02:29 ; Status DC Potassium Phosphate (K-Phos) 2,000 mg UNSCH PRN PO/TUBE SEE LABEL COMMENTS; Start 10/27/17 at 05:15; Stop 10/28/17 at 07:50; Status DC Potassium Phosphate 30 mmol/ Sodium Chloride 260 ml @ 42 mls/hr UNSCH PRN IV SEE LABEL COMMENTS; Start 10/27/17 at 05:15; Stop 10/28/17 at 07:50; Status DC Potassium Bicarb/ Potassium Chloride (K-Lyte Cl Eff) 50 meq UNSCH PRN PO For Potassium 3.3 - 3.5 mEq/L; Start 10/27/17 at 05:15; Stop 10/28/17 at 07:50; Status DC Potassium Chloride (KCl) 40 meq ONCE ONCE PO Last administered on 10/28/17at 05 :34; Start 10/28/17 at 05:30; Stop 10/28/17 at 05:31; Status DC Propofol 100 ml @ 3.24 mls/hr TITRATE PRN IV SEDATION; Start 10/19/17 at 03:00 ; Stop 10/23/17 at 08:34; Status DC Senna/Docusate Sodium (Candace-Colace) 1 tab BID PO Last administered on at 20:33; Start 10/19/17 at 09:00; Stop 10/27/17 at 16:20; Status DC Sennosides (Senokot) 17.2 mg Q12H PRN PO Moderate constipation; Start 10/19/17 at 02:30; Status Future Hold Sodium Bicarbonate 100 meq/Potassium Chloride 60 meq/ Sterile Water 1,000 ml @ 150 mls/hr Q6H40M IV ; Start 10/19/17 at 15:00; Stop 10/19/17 at 15:08; Status DC Sodium Bicarbonate 100 meq/Sterile Water 1,000 ml @ 150 mls/hr Q6H40M IV Last administered on 10/20/17at 12:17; Start 10/20/17 at 16:00; Stop 10/20/17 at 16:00 ; Status DC Sodium Bicarbonate 150 meq/Potassium Chloride 80 meq/ Sterile Water 1,040 ml @ 150 mls/hr Q6H56M IV Last administered on 10/19/17at 14:00; Start 10/19/17 at 14 :00; Stop 10/19/17 at 14:22; Status DC Sodium Bicarbonate (Sodium Bicarbonate 8.4% Inj) 100 meq ONCE ONCE IV PUSH Last administered on 10/19/17at 23:24; Start 10/19/17 at 22:00; Stop 10/19/17 at 22:34; Status DC Sodium Chloride (NS Flush) 2 ml BID IV FLUSH Last administered on 10/28/17at 09: 23; Start 10/19/17 at 09:00 Sodium Chloride 38.5 meq/Sterile Water 1,009.625 ml @ 50 mls/hr [id number] IV Last administered on 10/25/17at 21:42; Start 10/22/17 at 14:00; Stop 10/26/17 at 14:23; Status DC Sodium Phosphate 30 mmol/Sodium Chloride 250 ml @ 42 mls/hr UNSCH PRN IV For Phosphorus < 2.5 mg/dL Last administered on 10/27/17at 11:32; Start 10/27/17 at 05:15; Stop 10/28/17 at 07:50; Status DC Succinylcholine Chloride (Quelicin Inj) 100 mg ONCE ONCE IV PUSH Last administered on 10/19/17at 02:59; Start 10/19/17 at 03:00; Stop 10/19/17 at 03:03 ; Status DC Terbutaline Sulfate (Brethine Inj) 1 mg UNSCH PRN SQ FOR EXTRAVASATION PROTOCOL ; Start 10/19/17 at 07:45 Vancomycin HCl 1000 mg/Sodium Chloride 250 ml @ 250 mls/hr ONCE ONCE IV Last administered on 10/25/17at 10:23; Start 10/25/17 at 08:15; Stop 10/25/17 at 09:14 ; Status DC Vancomycin HCl 1500 mg/Sodium Chloride 515 ml @ 257.5 mls/ hr ONCE ONCE IV Last administered on 10/19/17at 05:28; Start 10/19/17 at 05:00; Stop 10/19/17 at 06:59; Status DC Vancomycin HCl 2000 mg/Sodium Chloride 520 ml @ 257.5 mls/ hr ONCE ONCE IV Last administered on 10/21/17at 14:15; Start 10/21/17 at 14:00; Stop 10/21/17 at 16:01; Status DC Vasopressin 40 units/Dextrose 100 ml @ 1.5 mls/hr TITRATE PRN IV Blood Pressure Management Last administered on 10/20/17at 15:58; Start 10/19/17 at 07: 45; Stop 10/21/17 at 16:48; Status DC Water (Free Water) 400 ml Q4HR G-TUBE Last administered on 10/24/17at 12:00; Start 10/24/17 at 12:00; Stop 10/24/17 at 17:39; Status DC Date of Insertion: October 19, 2017 A/P Problem List: (1) Acute respiratory failure ICD Code: J96.00 - Acute respiratory failure, unspecified whether with hypoxia or hypercapnia (2) Acute encephalopathy ICD Code: G93.40 - Encephalopathy, unspecified Status: Acute (3) Normocytic anemia ICD Code: D64.9 - Anemia, unspecified (4) Lactic acidosis ICD Code: E87.2 - Acidosis Status: Acute (5) Hypoalbuminemia ICD Code: E88.09 - Other disorders of plasma-protein metabolism, not elsewhere classified (6) Hypophosphatemia ICD Code: E83.39 - Other disorders of phosphorus metabolism Status: Acute (7) Hypokalemia ICD Code: E87.6 - Hypokalemia Status: Acute (8) Hypermagnesemia ICD Code: E83.41 - Hypermagnesemia (9) Acute kidney injury ICD Code: N17.9 - Acute kidney failure, unspecified Status: Acute (10) Leukocytosis ICD Code: D72.829 - Elevated white blood cell count, unspecified Status: Acute (11) Hyponatremia ICD Code: E87.1 - Hypo-osmolality and hyponatremia Status: Acute (12) Hypertension ICD Code: I10 - Essential (primary) hypertension (13) Pyrexia ICD Code: R50.9 - Fever, unspecified Status: Acute (14) Depression ICD Code: F32.9 - Major depressive disorder, single episode, unspecified (15) Ketoacidosis due to secondary diabetes ICD Code: E13.10 - Other specified diabetes mellitus with ketoacidosis without coma Status: Acute (16) BMI 37.0-37.9, adult ICD Code: Z68.37 - Body mass index (BMI) 37.0-37.9, adult Status: Acute Assessment and Plan A/P Acute toxic metabolic encephalopathy Depression/anxiety -CT head negative, MRI brain negative. LP showed xanthochromia, HSV negative 10/19 EEG-moderate to severe encephalopathy. Holding Quetiapine 100 mg daily, divalproex 250 mg daily and buspirone 10 mg p.o. 3 times daily/home medication along with hydroxyzine 10 mg p.o. 3 times daily Patient did receive cyproheptadine 4 mg 1 for possible serotonin syndrome by ED physician Holding buspirone 10 mg daily, divalproex 250 mg daily/check level and ketamine 100 mg p.o. daily. Neurology Dr. Solis has signed off, MRI within normal limits. Neurological exam stable. Hypertension, uncontrolled-continue Norvasc, Coreg, restart lisinopril if okay with nephrology. Started hydralazine 50 mg 3 times a day Acute hypoxic and hypercarbic respiratory failure Extubated 10/24/2017, tolerating well, currently on nc o2. Albuterol/ipratropium aerosols every 6 hours with albuterol aerosols every 2 hours as needed dyspnea Possible upper GI bleed-continue Protonix for now. Diarrhea-check C. difficile PCR, patient with leukocytosis and on antibiotics. Stop Candace-Colace. Acute hyperglycemic state Ketoacidosis -Currently on q4h SSI. Levemir 5 U q12h, hemoglobin A1c 13, triglycerides 208. Monitor ABGs. Acute kidney injury- resolving. Groin rash-could be fungal, start nystatin Leukocytosis Normocytic anemia Thrombocytopenia- improving. -s/p PRBC transfusion with improved H/H. -continue to monitor. Sepsis, likely source pulmonary-continue cefepime, vancomycin and metronidazole stopped, CT scan of the chest showed multiple bilateral scattered interstitial and airspace infiltrates likely inflammatory. Gallbladder and renal ultrasound unremarkable. Infectious disease following. Cultures remain negative. CSF studies unremarkable. Hypokalemia Hypophosphatemia Hypermagnesemia Replace electrolytes as clinically indicated. On protocol. PT evaluate and treat Prophylaxis GI -pantoprazole DVT -Lovenox Discharge Planning not ready for discharge. Problem Qualifiers (1) Acute respiratory failure: Qualified Codes: J96.01 - Acute respiratory failure with hypoxia; J96.02 - Acute respiratory failure with hypercapnia (2) Pyrexia: Qualified Codes: R50.9 - Fever, unspecified (3) Depression: Qualified Codes: F32.9 - Major depressive disorder, single episode, unspecified Frances Matamoros MD October 28, 2017 10:38
[2017-10-28] MEDS ORDERED: POTASSIUM CHLORIDE 10 MEQ CONTROLLED RELEASE TAB PO ONE ×2 (10:45→15:00)
--- NOTE | 2017-10-28 12:36 | HHI.IDPN ---
Subjective Subjective Remarks Patient is a 42-year-old male, brought into the hospital for evaluation of multiple symptoms. He apparently has been having problem with poor p.o. intake , and thirst and increasing fluid intake. There is also mention that he has had problem with nausea and vomiting and some confusion. The symptoms have been going on for about a month. Was brought into the emergency room, and he was found to have a blood sugar of 1800, creatinine was up to 3, sodium 21, and he has multiple abnormal electrolytes. He also had acidosis, and high fevers. His white count was elevated. In the ED he became more unresponsive, and he ended up getting intubated. He was initially on pressors. He was also found to have a very elevated CPK. His electrolytes stabilized, and his acidosis improved. Creatinine improved, and he has improvement in his urine output. He had 2 blood cultures done and those are negative. He was started on empiric antibiotics for possible aspiration. Initial urinalysis was unremarkable. Patient remains on the vent. His mental status still has not improved. Neurology has been consulted. Patient's temperatures seem to have improved. His chest x-ray showing bilateral pulmonary infiltrates and some nodular infiltrates. He has been getting vancomycin, cefepime, and Flagyl. His CPKs are still elevated, and his LFTs were also elevated. Patient also during his hospitalization had episode of V. tach and was resuscitated successfully. Infectious disease consultation has been requested to evaluate patient with high fevers. Notes reviewed Temps low grade BP ok Has diarrhea, C diff negative WBC slightly lower CT A/P noted CXR aishwarya infiltrates Not SOB No CP No N/V; swallowing ok Sputum C/S normal resp radha CSF, mild pleocytosis, (+) RBC, glucose ok, sl elevated protein, HSV neg, RPR NR CT head no contrast negative Brain MRI negative CT chest - aishwarya infiltrates Antibiotics Cefepime Current Medications Medications (Trade) Dose Ordered Sig/Jacky Route Start Time Stop Time Status Last Admin (NS Flush) 2 ml UNSCH PRN IV FLUSH 10/19/17 02:30 (NS Flush) 2 ml BID IV FLUSH 10/19/17 09:00 10/28/17 09:23 (Albuterol Neb) 2.5 mg Q2HR NEB PRN INH 10/19/17 02:30 10/24/17 08:36 ([facility] Nursing Information) 1 Q361D XX 5/18/18 02:30 10/19/17 02:30 (Chlorhexidine 2% Cloth) Taper DAILY@04 TOP 10/19/17 04:00 10/15/18 03:59 10/27/17 04:00 (Chlorhexidine 2% Cloth) 3 pack UNSCH PRN TOP 10/19/17 02:30 (Milk Of Magnesia Liq) 30 ml Q12H PRN PO 10/19/17 02:30 Future Hold (Senokot) 17.2 mg Q12H PRN PO 10/19/17 02:30 Future Hold (Dulcolax Supp) 10 mg DAILY PRN RECTAL 10/19/17 02:30 (Zofran Odt) 4 mg Q6H PRN PO 10/19/17 02:30 (Tears Naturale Opth Soln) 1 drop Q8HR EACH EYE 10/19/17 06:00 10/27/17 20:12 (Peridex 0.12% Liq) 15 ml BID@08,20 MT 10/19/17 08:00 10/24/17 08:17 Acetaminophen 100 ml @ 400 mls/hr Q8H PRN IV 10/19/17 03:30 10/27/17 00:49 (Glucagon Inj) 1 mg UNSCH PRN OTHER 10/19/17 04:15 (Brethine Inj) 1 mg UNSCH PRN SQ 10/19/17 07:45 (D50w (Vial) Inj) 50 ml UNSCH PRN IV PUSH 10/19/17 23:30 10/23/17 05:24 (Lactulose Liq) 30 ml DAILY PRN PO 10/23/17 21:30 Future Hold (D50w (Vial) Inj) 50 ml UNSCH PRN IV PUSH 10/24/17 21:00 (Glucagon Inj) 1 mg UNSCH PRN OTHER 10/24/17 21:00 Cefepime HCl 2000 mg/Sodium Chloride 100 ml @ 200 mls/hr Q12H IV 10/25/17 09:00 10/28/17 09:23 (Levemir Inj) 5 units Q12HR SQ 10/25/17 10:00 10/28/17 10:12 (Norvasc) 10 mg DAILY PO 10/26/17 09:00 10/28/17 09:22 (Coreg) 3.125 mg Q12HR PO 10/25/17 09:45 10/28/17 09:22 (Duoneb Neb) 1 ampule Q8HR NEB NEB 10/25/17 16:00 10/28/17 09:34 (Lovenox Inj) 40 mg Q24H SQ 10/26/17 08:00 10/28/17 09:22 (Protonix) 40 mg Q12HR PO 10/27/17 21:00 10/28/17 09:22 (Apresoline) 50 mg Q8HR PO 10/27/17 22:00 10/28/17 05:11 (NovoLOG SUPPLEMENTAL SCALE) 1 ACHS SLIDING SCALE SQ 10/27/17 17:00 10/28/17 08:00 (Mycostatin Powder) 1 applic Q12HR TOPICAL 10/27/17 21:00 (KCl) 30 meq ONCE ONCE PO 10/28/17 15:00 10/28/17 15:01 Lines Line no evidence of infection Past Medical History Depression/anxiety Hypertension NSAID use Allergies: Coded Allergies: No Known Allergies (Unverified Allergy, Unknown, 10/18/17) Objective . Vital Signs Date Time Temp Pulse Resp B/P (MAP) Pulse Ox O2 Delivery O2 Flow Rate FiO2 10/28/17 09:36 93 10/28/17 08:49 100.0 103 18 163/79 (107) 90 10/28/17 04:00 Room Air 10/28/17 04:00 99.3 95 20 165/89 (114) 92 10/28/17 04:00 100 10/28/17 00:30 Room Air 10/28/17 00:30 103 10/28/17 00:00 100.1 101 24 164/98 (120) 92 10/27/17 23:30 100.3 94 22 160/72 (101) 94 10/27/17 23:00 91 Room Air 10/27/17 23:00 97 20 188/104 (132) 92 10/27/17 22:00 109 10/27/17 21:15 95 21 10/27/17 20:00 95 10/27/17 20:00 99.8 95 28 96 10/27/17 19:00 98 Room Air 10/27/17 19:00 Room Air 10/27/17 18:20 99 2.00 10/27/17 18:01 100 27 175/80 (111) 95 10/27/17 18:01 100 10/27/17 18:00 101 42 96 10/27/17 17:01 95 10/27/17 17:01 95 35 157/74 (101) 95 10/27/17 17:00 95 10/27/17 16:01 98 38 147/70 (95) 95 10/27/17 16:00 97 39 94 10/27/17 13:33 101 38 188/81 (116) 90 10/27/17 13:33 101 10/27/17 13:01 99 10/27/17 13:01 99 38 185/91 (122) 95 . Laboratory Tests Test 10/27/17 03:33 10/28/17 03:53 White Blood Count 33.6 TH/MM3 31.4 TH/MM3 Red Blood Count 2.54 MIL/MM3 3.20 MIL/MM3 Hemoglobin 6.6 GM/DL 8.6 GM/DL Hematocrit 19.6 % 25.2 % Mean Corpuscular Volume 77.3 FL 78.7 FL Mean Corpuscular Hemoglobin 26.2 PG 26.8 PG Mean Corpuscular Hemoglobin Concent 33.9 % 34.1 % Red Cell Distribution Width 15.7 % 16.6 % Platelet Count 292 TH/MM3 325 TH/MM3 Mean Platelet Volume 9.6 FL 9.3 FL Neutrophils (%) (Auto) 80.2 % Lymphocytes (%) (Auto) 9.4 % Monocytes (%) (Auto) 9.3 % Eosinophils (%) (Auto) 0.6 % Basophils (%) (Auto) 0.5 % Neutrophils # (Auto) 25.2 TH/MM3 Lymphocytes # (Auto) 2.9 TH/MM3 Monocytes # (Auto) 2.9 TH/MM3 Eosinophils # (Auto) 0.2 TH/MM3 Basophils # (Auto) 0.2 TH/MM3 CBC Comment AUTO DIFF Differential Total Cells Counted 100 Neutrophils % (Manual) 76 % Band Neutrophils % 9 % Lymphocytes % 8 % Monocytes % 4 % Eosinophils % 2 % Neutrophils # (Manual) 27.0 TH/MM3 Metamyelocytes 1 % Nucleated Red Blood Cells 4 /100 WBC Differential Comment FINAL DIFF MANUAL Atypical Lymphocytes % Toxic Granulation 1+ Platelet Estimate NORMAL Platelet Morphology Comment NORMAL Basophilic Stippling FAINT Target Cells 1+ Laboratory Tests Test 10/27/17 03:33 10/28/17 03:53 Blood Urea Nitrogen 30 MG/DL 21 MG/DL Creatinine 1.69 MG/DL 1.38 MG/DL Random Glucose 172 MG/DL 185 MG/DL Calcium Level 7.5 MG/DL 7.5 MG/DL Sodium Level 145 MEQ/L 143 MEQ/L Potassium Level 2.5 MEQ/L 2.8 MEQ/L Chloride Level 108 MEQ/L 109 MEQ/L Carbon Dioxide Level 26.6 MEQ/L 21.9 MEQ/L Anion Gap 10 MEQ/L 12 MEQ/L Estimat Glomerular Filtration Rate 55 ML/MIN 69 ML/MIN Phosphorus Level 2.1 MG/DL Imaging Last 72 hours Impressions Abdomen/Pelvis CT 10/27/17 Signed Impressions: CONCLUSION: 1. No evidence of retroperitoneal hemorrhage. 2. Bibasilar subsegmental airspace disease and small bilateral effusions. 3. Patchy areas of hypodensity throughout the liver and spleen of uncertain et iology. Considering patient's history a septic vascular embolic process should be considered. 4. Minimal air in the urinary bladder. 5. Developing anasarca. Chest X-Ray 10/26/17599 Signed Impressions: CONCLUSION: Diffuse consolidation likely related to diffuse underlying processes such as ed aaron or diffuse inflammatory change. Last 72 hours Impressions Chest X-Ray 10/24/17 0600 Signed Impressions: CONCLUSION: No significant change. Bilateral pulmonary opacities remain. Head CT 10/24/17 Signed Impressions: CONCLUSION: 1. No acute intracranial abnormality. Gall Bladder Ultrasound 10/23/17 Signed Impressions: CONCLUSION: 1. There is increased echogenicity of the liver suggestive of fatty infiltrati on and/or hepatocellular disease. 2. No evidence of gallstones or biliary tract obstruction. Chest X-Ray 10/23/17 Signed Impressions: CONCLUSION: Scattered bilateral pulmonary infiltrates. Last Impressions Gall Bladder Ultrasound 10/23/17 Signed Impressions: CONCLUSION: Chest X-Ray 10/23/17 Signed Impressions: CONCLUSION: Scattered bilateral pulmonary infiltrates. Renal Ultrasound 10/19/17 Signed Impressions: Service Date/Time: Thursday, October 19, 2017 09:46 - CONCLUSION: Normal examination. Alexx Baig MD Physical Exam GENERAL: Awake and alert, NAD. SKIN: Cool and dry. No generalized rash. HEAD: Atraumatic. Normocephalic. No temporal wasting, or tenderness. EYES: [place] conjunctiva. No petechia or hemorrhage. Has dirty sclera. EARS, NOSE AND THROAT: Nose without bleeding or purulent nasal discharge. Moist mucosa NECK: Trachea midline. Supple and not tender, no meningeal signs CARDIOVASCULAR: Regular rate and rhythm. No murmurs, rubs or gallops heard RESPIRATORY: Decreased BS at bases ABDOMEN: Distended, not tender, not guarding, bowel sounds present and hypoactive. 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
--- NOTE | 2017-10-28 14:22 | HHI.NPPN ---
Subjective General Problems: Edema Renal Failure: Acute Review of Systems General Constitutional: Fatigue Cardiovascular Cardiac: Edema Gastrointestinal Gastrointestinal: Diarrhea Endocrine Endocrine: Thirst Objective Data Data Vital Signs Date Time Temp Pulse Resp B/P (MAP) Pulse Ox O2 Delivery O2 Flow Rate FiO2 10/28/17 12:00 98.2 105 26 144/71 (95) 91 10/28/17 09:36 93 10/28/17 08:49 100.0 103 18 163/79 (107) 90 10/28/17 04:00 Room Air 10/28/17 04:00 99.3 95 20 165/89 (114) 92 10/28/17 04:00 100 10/28/17 00:30 Room Air 10/28/17 00:30 103 10/28/17 00:00 100.1 101 24 164/98 (120) 92 10/27/17 23:30 100.3 94 22 160/72 (101) 94 10/27/17 23:00 91 Room Air 10/27/17 23:00 97 20 188/104 (132) 92 10/27/17 22:00 109 10/27/17 21:15 95 21 10/27/17 20:00 95 10/27/17 20:00 99.8 95 28 96 10/27/17 19:00 98 Room Air 10/27/17 19:00 Room Air 10/27/17 18:20 99 2.00 10/27/17 18:01 100 27 175/80 (111) 95 10/27/17 18:01 100 10/27/17 18:00 101 42 96 10/27/17 17:01 95 10/27/17 17:01 95 35 157/74 (101) 95 10/27/17 17:00 95 10/27/17 16:01 98 38 147/70 (95) 95 10/27/17 16:00 97 39 94 -: 10/28/17 0353 10/28/17 0353 Tubes & Lines: Chiang Tubes & Lines Comment A line Drip Comment 06/07 NS Physical Exam General Appearance: Well Developed, Well Nourished, No Acute Distress, Comfortable Eyes Eye Exam: Pupils Equal, Pupils Reactive Neck Neck Exam: Neck Supple Pulmonary Resp Exam: Breath Sounds Equal, No Distress, Decreased Bases Cardiology CV Exam: Regular, Good Perfusion, Tachycardia Gastrointestinal/Abdomen GI Exam: Soft, Non-Tender, Bowel Sounds Present, Positive Bowel Movement, Distended Genitourinary Exam: Clear Urine Musculoskeletal MS Exam: Joints Intact, Normal Tone, Unable to Ambulate Integumentary Skin Exam: Clear, Warm, Dry, Intact Extremeties Extremities Exam: Pedal Pulses Palpable, Moderate Edema Neurologic Neuro Exam: Alert, Awake, Speech Clear, Moving All Extremities Psychiatric Psych Exam: Appropriate Responses Assessment/Plan Discussed Condition With: Patient Assessment Summary: CADY/Acute Renal Failure, Hypertension Electrolyte Assessment: Hypernatremia Problem List: (1) Acute kidney injury ICD Codes: N17.9 - Acute kidney failure, unspecified Status: Acute Plan: No baseline labs available for comparison renal failure was secondary to hyperglycemia/DKA and rhabdomyolysis s/p cardiac arrest with chest compressions. Renal function improving daily cr improved Avoid nephrotoxic agents Dr. Schroeder to follow (2) Hypernatremia ICD Codes: E87.0 - Hyperosmolality and hypernatremia Status: Resolved Plan: Encouraged PO fliud intake (3) Pyrexia ICD Codes: R50.9 - Fever, unspecified Status: Acute Plan: ID consulted s/p LP Cultures negative On cefepime (4) Hyperglycemia ICD Codes: R73.9 - Hyperglycemia, unspecified Plan: resolving DKA maintain glucose 140-180 mg/dL while hospitalized He will need diabetic education (5) Hypokalemia ICD Codes: E87.6 - Hypokalemia Status: Acute Plan: continue to replace as needed follow labs Plan patient was seen and examined. Renal function and hypernatremia both have improved. Stop 1/4NS, encourage oral intake. We will see as needed. Problem Qualifiers (1) Pyrexia: Qualified Codes: R50.9 - Fever, unspecified Mack Rodriguez MD October 28, 2017 14:22
[2017-10-28 17:52] LABS: CF JC VIRUS DNA NEGATIVE (<10 COPIES)
[2017-10-29] VITALS (7 sets, daily range): BP systolic 133–151; BP diastolic 64–75; PULSE 96–105; RESP 18; TEMP 98.3–99.9; O2SAT 91–95
[2017-10-29] MEDS: CHLORHEXIDINE GLUCONATE 2 % 1 PACK (2 CLOTHS) TOP SCH (04:00)
[2017-10-29] MEDS: hydrALAZINE HCL 50 MG TAB PO SCH ×3 (05:02→23:44)
[2017-10-29] MEDS: ARTIFICIAL TEARS OPTH SOLN 15 ML BTL EACH EYE SCH ×3 (05:02→23:47)
[2017-10-29 07:18] LABS: HEMATOCRIT 25.7 % (39.0-51.0); HEMOGLOBIN 8.7 GM/DL (13.0-17.0); MEAN CELL VOLUME 79.4 FL (80.0-100.0); MEAN CORPUSCULAR HEMOGLOBIN 27.1 PG (27.0-34.0); MEAN CORPUSCULAR HGB CONC 34.1 % (32.0-36.0); MEAN PLATELET VOLUME 9.9 FL (7.0-11.0); PLATELET COUNT 327 TH/MM3 (150-450); RED BLOOD COUNT 3.23 MIL/MM3 (4.50-5.90); RED CELL DISTRIBUTION WIDTH 16.2 % (11.6-17.2)
[2017-10-29 07:42] LABS: BICARBONATE 23.3 MEQ/L (21.0-32.0); CALCIUM 7.4 MG/DL (8.5-10.1); CREATININE 1.3 MG/DL (0.60-1.30)
[2017-10-29] MEDS: CHLORHEXIDINE 0.12% (ORAL KIT) 15 ML CUP MT SCH ×2 (09:40→20:00)
[2017-10-29] MEDS: CEFEPIME INJ 2,000 MG in SODIUM CHLORIDE 0.9% INJ 100 ML IV SCH ×2 (09:42→21:00)
[2017-10-29] MEDS: PANTOPRAZOLE SOD 40 MG DELAYED RELEASE TAB PO SCH ×2 (09:44→23:44)
[2017-10-29] MEDS: CARVEDILOL 3.125 MG TAB PO SCH ×2 (09:44→23:45)
[2017-10-29] MEDS: ENOXAPARIN SODIUM 40 MG/0.4 ML SYRINGE SQ SCH (09:44)
[2017-10-29] MEDS: NYSTATIN 100,000 U/GM PWD 15 GM BTL TOPICAL SCH ×2 (09:45→23:47)
[2017-10-29] MEDS: INSULIN DETEMIR 100 UNITS/ML VIAL SQ SCH ×2 (09:45→23:46)
[2017-10-29] MEDS: SODIUM CHLORIDE 0.9% FLUSH 10 ML FLUSH IV FLUSH SCH ×2 (09:46→23:46)
[2017-10-29] MEDS: INSULIN ASPART SUPPLEMENTAL SCALE SQ SCH ×4 (09:47→21:00)
--- NOTE | 2017-10-29 10:01 | HHI.IDPN ---
Subjective Subjective Remarks Patient is a 42-year-old male, brought into the hospital for evaluation of multiple symptoms. He apparently has been having problem with poor p.o. intake , and thirst and increasing fluid intake. There is also mention that he has had problem with nausea and vomiting and some confusion. The symptoms have been going on for about a month. Was brought into the emergency room, and he was found to have a blood sugar of 1800, creatinine was up to 3, sodium 21, and he has multiple abnormal electrolytes. He also had acidosis, and high fevers. His white count was elevated. In the ED he became more unresponsive, and he ended up getting intubated. He was initially on pressors. He was also found to have a very elevated CPK. His electrolytes stabilized, and his acidosis improved. Creatinine improved, and he has improvement in his urine output. He had 2 blood cultures done and those are negative. He was started on empiric antibiotics for possible aspiration. Initial urinalysis was unremarkable. Patient remains on the vent. His mental status still has not improved. Neurology has been consulted. Patient's temperatures seem to have improved. His chest x-ray showing bilateral pulmonary infiltrates and some nodular infiltrates. He has been getting vancomycin, cefepime, and Flagyl. His CPKs are still elevated, and his LFTs were also elevated. Patient also during his hospitalization had episode of V. tach and was resuscitated successfully. Infectious disease consultation has been requested to evaluate patient with high fevers. Notes reviewed Temps ok BP ok C/O abdominal pain Still with LBM, but less C diff negative No N/V Very weak WBC slightly lower CXR aishwarya infiltrates Not SOB No CP Antibiotics Cefepime Current Medications Medications (Trade) Dose Ordered Sig/Jacky Route Start Time Stop Time Status Last Admin (NS Flush) 2 ml UNSCH PRN IV FLUSH 10/19/17 02:30 (NS Flush) 2 ml BID IV FLUSH 10/19/17 09:00 10/29/17 09:46 (Albuterol Neb) 2.5 mg Q2HR NEB PRN INH 10/19/17 02:30 10/24/17 08:36 ([facility] Nursing Information) 1 Q361D XX 10/19/17 02:30 10/19/17 02:30 (Chlorhexidine 2% Cloth) Taper DAILY@04 TOP 10/19/17 04:00 10/15/18 03:59 10/27/17 04:00 (Chlorhexidine 2% Cloth) 3 pack UNSCH PRN TOP 10/19/17 02:30 (Milk Of Magnesia Liq) 30 ml Q12H PRN PO 10/19/17 02:30 Future Hold (Senokot) 17.2 mg Q12H PRN PO 10/19/17 02:30 Future Hold (Dulcolax Supp) 10 mg DAILY PRN RECTAL 10/19/17 02:30 (Zofran Odt) 4 mg Q6H PRN PO 10/19/17 02:30 (Tears Naturale Opth Soln) 1 drop Q8HR EACH EYE 10/19/17 06:00 10/27/17 20:12 (Peridex 0.12% Liq) 15 ml BID@08,20 MT 10/19/17 08:00 10/24/17 08:17 Acetaminophen 100 ml @ 400 mls/hr Q8H PRN IV 10/19/17 03:30 10/27/17 00:49 (Glucagon Inj) 1 mg UNSCH PRN OTHER 10/19/17 04:15 (Brethine Inj) 1 mg UNSCH PRN SQ 10/19/17 07:45 (D50w (Vial) Inj) 50 ml UNSCH PRN IV PUSH 10/19/17 23:30 10/23/17 05:24 (Lactulose Liq) 30 ml DAILY PRN PO 10/23/17 21:30 Future Hold (D50w (Vial) Inj) 50 ml UNSCH PRN IV PUSH 10/24/17 21:00 (Glucagon Inj) 1 mg UNSCH PRN OTHER 10/24/17 21:00 Cefepime HCl 2000 mg/Sodium Chloride 100 ml @ 200 mls/hr Q12H IV 10/25/17 09:00 10/29/17 09:42 (Levemir Inj) 5 units Q12HR SQ 10/25/17 10:00 10/29/17 09:45 (Norvasc) 10 mg DAILY PO 10/26/17 09:00 10/29/17 09:44 (Coreg) 3.125 mg Q12HR PO 10/25/17 09:45 10/29/17 09:44 (Duoneb Neb) 1 ampule Q8HR NEB NEB 10/25/17 16:00 10/28/17 23:40 (Lovenox Inj) 40 mg Q24H SQ 10/26/17 08:00 10/29/17 09:44 (Protonix) 40 mg Q12HR PO 10/27/17 21:00 10/29/17 09:44 (Apresoline) 50 mg Q8HR PO 10/27/17 22:00 10/29/17 05:02 (NovoLOG SUPPLEMENTAL SCALE) 1 ACHS SLIDING SCALE SQ 10/27/17 17:00 10/29/17 09:47 (Mycostatin Powder) 1 applic Q12HR TOPICAL 10/27/17 21:00 Lines PIV no evidence of infection Past Medical History Depression/anxiety Hypertension NSAID use Allergies: Coded Allergies: No Known Allergies (Unverified Allergy, Unknown, 10/18/17) Objective . Vital Signs Date Time Temp Pulse Resp B/P (MAP) Pulse Ox O2 Delivery O2 Flow Rate FiO2 10/29/17 08:01 94 Nasal Cannula 2.00 10/29/17 05:30 100 10/29/17 05:30 99.7 100 18 151/72 (98) 94 10/29/17 05:30 Nasal Cannula 2.00 10/29/17 00:00 99.0 104 18 145/72 (96) 95 10/29/17 00:00 95 Nasal Cannula 2.00 10/29/17 00:00 96 10/28/17 23:40 92 Nasal Cannula 2.00 10/28/17 21:30 Nasal Cannula 2.00 10/28/17 20:00 99.8 108 20 131/60 (83) 92 10/28/17 20:00 107 10/28/17 20:00 Room Air 10/28/17 19:25 Nasal Cannula 2.00 10/28/17 15:50 99.7 102 18 144/70 (94) 91 10/28/17 12:00 98.2 105 26 144/71 (95) 91 . Laboratory Tests Test 10/28/17 03:53 10/29/17 05:50 White Blood Count 31.4 TH/MM3 24.0 TH/MM3 Red Blood Count 3.20 MIL/MM3 3.23 MIL/MM3 Hemoglobin 8.6 GM/DL 8.7 GM/DL Hematocrit 25.2 % 25.7 % Mean Corpuscular Volume 78.7 FL 79.4 FL Mean Corpuscular Hemoglobin 26.8 PG 27.1 PG Mean Corpuscular Hemoglobin Concent 34.1 % 34.1 % Red Cell Distribution Width 16.6 % 16.2 % Platelet Count 325 TH/MM3 327 TH/MM3 Mean Platelet Volume 9.3 FL 9.9 FL Neutrophils (%) (Auto) 80.2 % Lymphocytes (%) (Auto) 9.4 % Monocytes (%) (Auto) 9.3 % Eosinophils (%) (Auto) 0.6 % Basophils (%) (Auto) 0.5 % Neutrophils # (Auto) 25.2 TH/MM3 Lymphocytes # (Auto) 2.9 TH/MM3 Monocytes # (Auto) 2.9 TH/MM3 Eosinophils # (Auto) 0.2 TH/MM3 Basophils # (Auto) 0.2 TH/MM3 CBC Comment AUTO DIFF Differential Total Cells Counted 100 Neutrophils % (Manual) 76 % Band Neutrophils % 9 % Lymphocytes % 8 % Monocytes % 4 % Eosinophils % 2 % Neutrophils # (Manual) 27.0 TH/MM3 Metamyelocytes 1 % Nucleated Red Blood Cells 4 /100 WBC Differential Comment FINAL DIFF MANUAL Atypical Lymphocytes % Toxic Granulation 1+ Platelet Estimate NORMAL Platelet Morphology Comment NORMAL Basophilic Stippling FAINT Target Cells 1+ Laboratory Tests Test 10/28/17 03:53 10/29/17 05:50 Blood Urea Nitrogen 21 MG/DL 14 MG/DL Creatinine 1.38 MG/DL 1.30 MG/DL Random Glucose 185 MG/DL 204 MG/DL Calcium Level 7.5 MG/DL 7.4 MG/DL Sodium Level 143 MEQ/L 142 MEQ/L Potassium Level 2.8 MEQ/L 3.0 MEQ/L Chloride Level 109 MEQ/L 108 MEQ/L Carbon Dioxide Level 21.9 MEQ/L 23.3 MEQ/L Anion Gap 12 MEQ/L 11 MEQ/L Estimat Glomerular Filtration Rate 69 ML/MIN 74 ML/MIN Total Protein 6.0 GM/DL Protein Corrected Calcium 8.0 MG/DL Microbiology Date/Time Source Procedure Growth Status 10/28/17 17:50 Blood Peripheral Aerobic Blood Culture Pending Received 10/28/17 17:50 Blood Peripheral Anaerobic Blood Culture Pending Received 10/28/17 17:40 Blood Peripheral Aerobic Blood Culture Pending Received 10/28/17 17:40 Blood Peripheral Anaerobic Blood Culture Pending Received Imaging Last 72 hours Impressions Abdomen/Pelvis CT 10/27/17 Signed Impressions: CONCLUSION: 1. No evidence of retroperitoneal hemorrhage. 2. Bibasilar subsegmental airspace disease and small bilateral effusions. 3. Patchy areas of hypodensity throughout the liver and spleen of uncertain et iology. Considering patient's history a septic vascular embolic process should be considered. 4. Minimal air in the urinary bladder. 5. Developing anasarca. Chest X-Ray 10/26/17599 Signed Impressions: CONCLUSION: Diffuse consolidation likely related to diffuse underlying processes such as ed aaron or diffuse inflammatory change. Last 72 hours Impressions Chest X-Ray 10/24/17 06 Signed Impressions: CONCLUSION: No significant change. Bilateral pulmonary opacities remain. Head CT 10/24/17 Signed Impressions: CONCLUSION: 1. No acute intracranial abnormality. Gall Bladder Ultrasound 10/23/17 Signed Impressions: CONCLUSION: 1. There is increased echogenicity of the liver suggestive of fatty infiltrati on and/or hepatocellular disease. 2. No evidence of gallstones or biliary tract obstruction. Chest X-Ray 10/23/17 Signed Impressions: CONCLUSION: Scattered bilateral pulmonary infiltrates. Last Impressions Gall Bladder Ultrasound 10/23/17 Signed Impressions: CONCLUSION: Chest X-Ray 10/23/17 Signed Impressions: CONCLUSION: Scattered bilateral pulmonary infiltrates. Renal Ultrasound 10/19/17 Signed Impressions: Service Date/Time: Thursday, October 19, 2017 09:46 - CONCLUSION: Normal examination. Alexx Baig MD Physical Exam GENERAL: Awake and alert, NAD. SKIN: Cool and dry. No generalized rash. HEAD: Atraumatic. Normocephalic. No temporal wasting, or tenderness. EYES: [place] conjunctiva. No petechia or hemorrhage. Has dirty sclera. EARS, NOSE AND THROAT: Nose without bleeding or purulent nasal discharge. Moist mucosa NECK: Trachea midline. Supple and not tender, no meningeal signs CARDIOVASCULAR: Regular rate and rhythm. No murmurs, rubs or gallops heard RESPIRATORY: Decreased BS at bases ABDOMEN: Distended, mild tenderness, not guarding, bowel sounds present and hypoactive. 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
--- NOTE | 2017-10-29 10:07 | HHI.PR ---
Subjective Remarks in no acute distress. however says that ' he's not feeling good'. has loose stools. T max 99.8. Objective Vitals Vital Signs Date Time Temp Pulse Resp B/P (MAP) Pulse Ox O2 Delivery O2 Flow Rate FiO2 10/29/17 08:01 94 Nasal Cannula 2.00 10/29/17 05:30 100 10/29/17 05:30 99.7 100 18 151/72 (98) 94 10/29/17 05:30 Nasal Cannula 2.00 10/29/17 00:00 99.0 104 18 145/72 (96) 95 10/29/17 00:00 95 Nasal Cannula 2.00 10/29/17 00:00 96 10/28/17 23:40 92 Nasal Cannula 2.00 10/28/17 21:30 Nasal Cannula 2.00 10/28/17 20:00 99.8 108 20 131/60 (83) 92 10/28/17 20:00 107 10/28/17 20:00 Room Air 10/28/17 19:25 Nasal Cannula 2.00 10/28/17 15:50 99.7 102 18 144/70 (94) 91 10/28/17 12:00 98.2 105 26 144/71 (95) 91 I/O 10/28/17 10/28/17 10/28/17 10/29/17 10/29/17 10/29/17 07:00 15:00 23:00 07:00 15:00 23:00 Intake Total 160 ml 240 ml 1300 ml Output Total 1100 ml 2600 ml Balance 160 ml -860 ml -1300 ml Intake Oral 160 ml 240 ml 1300 ml Output Urine Total 1100 ml 2600 ml # Voids 3 1 # Bowel Movements 2 Result Diagram: 10/29/17 0550 10/29/17 0550 Imaging Last Impressions Abdomen/Pelvis CT 10/27/17 0000 Signed Impressions: CONCLUSION: 1. No evidence of retroperitoneal hemorrhage. 2. Bibasilar subsegmental airspace disease and small bilateral effusions. 3. Patchy areas of hypodensity throughout the liver and spleen of uncertain et iology. Considering patient's history a septic vascular embolic process should be considered. 4. Minimal air in the urinary bladder. 5. Developing anasarca. Chest X-Ray 10/26/17 0600 Signed Impressions: CONCLUSION: Diffuse consolidation likely related to diffuse underlying processes such as ed aaron or diffuse inflammatory change. Chest CT 10/25/17 Signed Impressions: CONCLUSION: 1. Multiple bilateral scattered interstitial and airspace infiltrates througho ut both lung yuen suggestive of some type of inflammatory process. 2. Abnormal appearance of the liver. Recommend CT scan of the abdomen with IV contrast for further evaluation. Brain MRI 10/25/17 Signed Impressions: CONCLUSION: 1. Unremarkable MRI examination of the brain. Specifically, no cerebral edema or diffusion abnormality to suggest encephalitis. Head CT 10/24/17 Signed Impressions: CONCLUSION: 1. No acute intracranial abnormality. Gall Bladder Ultrasound 10/23/17 Signed Impressions: CONCLUSION: 1. There is increased echogenicity of the liver suggestive of fatty infiltrati on and/or hepatocellular disease. 2. No evidence of gallstones or biliary tract obstruction. Renal Ultrasound 10/19/17 Signed Impressions: Service Date/Time: Thursday, October 19, 2017 09:46 - CONCLUSION: Normal examination. Alexx Baig MD Objective Remarks GENERAL: This is a well-nourished, well-developed patient, in no apparent distress. CARDIOVASCULAR: Regular rate and regular rhythm without murmurs, gallops, or rubs. RESPIRATORY: Clear to auscultation. Breath sounds equal bilaterally. No wheezes , rales, or rhonchi. GASTROINTESTINAL: Abdomen soft, non-tender, nondistended. Normal, active bowel sounds MUSCULOSKELETAL: Extremities without clubbing, cyanosis, or edema. NEURO: Alert & Oriented x4 to person, place, time, situation. Moves all ext x4 Medications and IVs Inpatient Medications Acetaminophen 100 ml @ 400 mls/hr Q8H PRN IV fever Last administered on 00:49; Start 10/19/17 at 03:30 Acetaminophen (Tylenol Supp) 650 mg ONCE ONCE RECTAL Last administered on 10/18at 23:00; Start 10/18/17 at 23:00; Stop 10/18/17 at 23:01; Status DC Albuterol Sulfate (Albuterol Neb) 2.5 mg Q2HR NEB PRN INH SOB/WHEEZING Last administered on 10/24/17at 08:36; Start 10/19/17 at 02:30 Albuterol/ Ipratropium (Duoneb Neb) 1 ampule Q8HR NEB NEB Last administered on 10/28/17at 23:40; Start 10/25/17 at 16:00 Amlodipine Besylate (Norvasc) 10 mg DAILY PO Last administered on 10/29/17at 09: 44; Start 10/26/17 at 09:00 Artificial Tears (Tears Naturale Opth Soln) 1 drop Q8HR EACH EYE Last administered on 10/27/17at 20:12; Start 10/19/17 at 06:00 Bisacodyl (Dulcolax Supp) 10 mg DAILY PRN RECTAL SEVERE CONSITIPATION; Start at 02:30 Calcium Chloride (Calcium Chloride Inj) 1 gm ONCE IV PUSH ; Start 10/19/17 at 16 :15; Stop 10/19/17 at 17:00; Status DC Calcium Gluconate (Calcium Gluconate Inj) 1 gm ONCE ONCE IV PUSH ; Start at 01:45; Stop 10/19/17 at 01:46; Status DC Carvedilol (Coreg) 3.125 mg Q12HR PO Last administered on 10/29/17at 09:44; Start 10/25/17 at 09:45 Cefepime HCl 2000 mg/Sodium Chloride 100 ml @ 200 mls/hr Q12H IV Last administered on 10/29/17at 09:42; Start 10/25/17 at 09:00 Ceftriaxone Sodium 1000 mg/ Sodium Chloride 100 ml @ 200 mls/hr ONCE ONCE IV Last administered on 10/18/17at 23:34; Start 10/18/17 at 23:30; Stop 10/19/17 at 00:03; Status DC Chlorhexidine Gluconate (Chlorhexidine 2% Cloth) 3 pack UNSCH PRN TOP HYGIENIC CARE; Start 10/19/17 at 02:30 Chlorhexidine Gluconate (Peridex 0.12% Liq) 15 ml BID@08,20 MT Last administered on 10/24/17at 08:17; Start 10/19/17 at 08:00 Chlorothiazide Sodium (Diuril Inj) 500 mg ONCE ONCE IV Last administered on at 13:17; Start 10/25/17 at 10:45; Stop 10/25/17 at 10:55; Status DC Cyproheptadine HCl (Periactin Liq) 4 mg ONCE ONCE PO ; Start 10/18/17 at 23:00 ; Stop 10/18/17 at 23:01; Status DC Dextrose (D50w (Vial) Inj) 50 ml UNSCH PRN IV PUSH HYPOGLYCEMIA-SEE COMMENTS; Start 10/24/17 at 21:00 Diatrizoate Meglum/ Diatrizoate Sod ( Gastroview Liq) 18 ml ONCE ONCE PO Last administered on 10/27/17at 20:02; Start 10/27/17 at 17:10; Stop 10/27/17 at 17:37; Status DC Enoxaparin Sodium (Lovenox Inj) 40 mg Q24H SQ Last administered on 10/29/17at 09 :44; Start 10/26/17 at 08:00 Etomidate (Amidate Inj) 10 mg ONCE ONCE IV PUSH Last administered on at 02:58; Start 10/19/17 at 03:00; Stop 10/19/17 at 03:03; Status DC Fentanyl Citrate 250 ml @ 5 mls/hr TITRATE PRN IV SEDATION Last administered on 10/24/17at 01:34; Start 10/23/17 at 18:00; Stop 10/24/17 at 17:39; Status DC Furosemide (Lasix Inj) 40 mg ONCE ONCE IV PUSH Last administered on 10/26/17at 12:38; Start 10/26/17 at 08:00; Stop 10/26/17 at 08:07; Status DC Glucagon (Glucagon Inj) 1 mg UNSCH PRN OTHER HYPOGLYCEMIA-SEE COMMENTS; Start 10/24/17 at 21:00 Hydralazine HCl (Apresoline) 50 mg Q8HR PO Last administered on 10/29/17at 05:02 ; Start 10/27/17 at 22:00 Insulin Aspart (NovoLOG SUPPLEMENTAL SCALE) 1 ACHS SLIDING SCALE SQ Last administered on 10/29/17at 09:47; Start 10/27/17 at 17:00 Insulin Detemir (Levemir Inj) 5 units Q12HR SQ Last administered on 10/29/17at 09:45; Start 10/25/17 at 10:00 Insulin Human Regular 100 ml @ 0 mls/hr ONCE ONCE IV Last administered on 10/19at 00:00; Start 10/18/17 at 23:30; Stop 10/18/17 at 23:39; Status DC Insulin Human Regular (NovoLIN R INJ) 10 units ONCE ONCE IV PUSH Last administered on 10/18/17at 23:34; Start 10/18/17 at 23:30; Stop 10/18/17 at 23:31 ; Status DC Insulin Human Regular 100 units/ Sodium Chloride 100 ml @ 2 mls/hr TITRATE PRN IV Blood Glucose Control Last administered on 10/23/17at 04:08; Start 10/20/17 at 01:45; Stop 10/24/17 at 20:50; Status DC Ketorolac Tromethamine (Toradol Inj) 30 mg ONCE ONCE IV PUSH Last administered on 10/18/17at 23:00; Start 10/18/17 at 23:00; Stop 10/18/17 at 23:01 ; Status DC Lactated Ringer's 1,000 ml @ 150 mls/hr Q6H40M IV Last administered on at 09:09; Start 10/21/17 at 14:00; Stop 10/22/17 at 10:58; Status DC Lactulose (Lactulose Liq) 30 ml DAILY PRN PO SEVERE CONSITIPATION; Start at 21:30; Status Future Hold Lorazepam (Ativan Inj) 1 mg ONCE ONCE IV PUSH Last administered on 10/19/17at 00:35; Start 10/19/17 at 00:15; Stop 10/19/17 at 00:16; Status DC Magnesium Hydroxide (Milk Of Magnesia Liq) 30 ml Q12H PRN PO Mild constipation ; Start 10/19/17 at 02:30; Status Future Hold Magnesium Oxide (Mag-Ox) 800 mg UNSCH PRN PO For Magnesium 1.2 - 1.6 mg/dL; Start 10/27/17 at 05:15; Stop 10/28/17 at 07:50; Status DC Magnesium Sulfate 2 gm/Sodium Chloride 100 ml @ 50 mls/hr UNSCH PRN IV For Magnesium 1.2 - 1.6 mg/dL; Start 10/27/17 at 05:15; Stop 10/28/17 at 07:50; Status DC Magnesium Sulfate 4 gm/Sodium Chloride 100 ml @ 50 mls/hr UNSCH PRN IV For Magnesium 0.9 - 1.1 mg/dL; Start 10/27/17 at 05:15; Stop 10/28/17 at 07:50; Status DC Metronidazole 100 ml @ 100 mls/hr Q6H IV Last administered on 10/25/17at 06:25 ; Start 10/19/17 at 04:00; Stop 10/25/17 at 08:11; Status DC Midazolam HCl (Versed Inj) 4 mg NOW ONCE IV Last administered on 10/23/17at 15: 20; Start 10/23/17 at 15:15; Stop 10/23/17 at 15:16; Status DC Miscellaneous Information 1 ONCE ONCE OTHER Last administered on 10/19/17at 23: 30; Start 10/19/17 at 23:30; Stop 10/19/17 at 23:31; Status DC Miscellaneous Information ([facility] Nursing Information) 1 [id number] Last administered on 10/19/17at 02:30; Start 10/19/17 at 02:30 Morphine Sulfate (Morphine Inj) 2 mg Q2H PRN IV PUSH PAIN SCALE 6 TO 10 Last administered on 10/25/17at 06:26; Start 10/19/17 at 02:30; Stop 10/25/17 at 09:33 ; Status DC Norepinephrine Bitartrate 4 mg/ Sodium Chloride 250 ml @ 7.5 mls/hr TITRATE PRN IV Blood pressure management Last administered on 10/20/17at 06:30; Start at 03:30; Stop 10/23/17 at 08:34; Status DC Nystatin (Mycostatin Powder) 1 applic Q12HR TOPICAL ; Start 10/27/17 at 21:00 Ondansetron HCl (Zofran Odt) 4 mg Q6H PRN PO NAUSEA OR VOMITING; Start at 02:30 Ondansetron HCl (Zofran Inj) 4 mg Q6H PRN IV PUSH NAUSEA OR VOMITING; Start at 02:30; Stop 10/19/17 at 02:30; Status DC Pantoprazole Sodium (Protonix Inj) 40 mg BID IV PUSH Last administered on at 08:37; Start 10/19/17 at 09:00; Stop 10/27/17 at 16:20; Status DC Pantoprazole Sodium (Protonix) 40 mg Q12HR PO Last administered on 10/29/17at 09 :44; Start 10/27/17 at 21:00 Pharmacy Profile Note 0 ml @ 0 mls/hr UNSCH OTHER ; Start 10/19/17 at 04:00; Stop 10/21/17 at 16:48; Status DC Phenylephrine HCl 40 mg/Dextrose 500 ml @ 30 mls/hr TITRATE PRN IV Blood Pressure Management Last administered on 10/20/17at 01:55; Start 10/19/17 at 07: 45; Stop 10/21/17 at 16:48; Status DC Potassium Chloride 40 meq/ Sodium Chloride 520 ml @ 130 mls/hr ONCE ONCE IV- CENTRAL Last administered on 10/20/17at 13:49; Start 10/20/17 at 13:00; Stop at 16:59; Status DC Potassium Chloride 40 meq/ Sodium Chloride 38.5 meq/Sterile Water 1,029.625 ml @ 150 mls/hr Q6H52M IV Last administered on 10/19/17at 10:27; Start 10/19/17 at 02:45; Stop 10/19/17 at 14:22; Status DC Potassium Chloride/Sodium Chloride 1,000 ml @ 125 mls/hr Q8H IV Last administered on 10/19/17at 00:36; Start 10/19/17 at 00:15; Stop 10/19/17 at 02:29 ; Status DC Potassium Phosphate (K-Phos) 2,000 mg UNSCH PRN PO/TUBE SEE LABEL COMMENTS; Start 10/27/17 at 05:15; Stop 10/28/17 at 07:50; Status DC Potassium Phosphate 30 mmol/ Sodium Chloride 260 ml @ 42 mls/hr UNSCH PRN IV SEE LABEL COMMENTS; Start 10/27/17 at 05:15; Stop 10/28/17 at 07:50; Status DC Potassium Bicarb/ Potassium Chloride (K-Lyte Cl Eff) 50 meq UNSCH PRN PO For Potassium 3.3 - 3.5 mEq/L; Start 10/27/17 at 05:15; Stop 10/28/17 at 07:50; Status DC Potassium Chloride (KCl) 30 meq ONCE ONCE PO Last administered on 10/28/17at 14 :31; Start 10/28/17 at 15:00; Stop 10/28/17 at 15:01; Status DC Propofol 100 ml @ 3.24 mls/hr TITRATE PRN IV SEDATION; Start 10/19/17 at 03:00 ; Stop 10/23/17 at 08:34; Status DC Senna/Docusate Sodium (Candace-Colace) 1 tab BID PO Last administered on at 20:33; Start 10/19/17 at 09:00; Stop 10/27/17 at 16:20; Status DC Sennosides (Senokot) 17.2 mg Q12H PRN PO Moderate constipation; Start 10/19/17 at 02:30; Status Future Hold Sodium Bicarbonate 100 meq/Potassium Chloride 60 meq/ Sterile Water 1,000 ml @ 150 mls/hr Q6H40M IV ; Start 10/19/17 at 15:00; Stop 10/19/17 at 15:08; Status DC Sodium Bicarbonate 100 meq/Sterile Water 1,000 ml @ 150 mls/hr Q6H40M IV Last administered on 10/20/17at 12:17; Start 10/20/17 at 16:00; Stop 10/20/17 at 16:00 ; Status DC Sodium Bicarbonate 150 meq/Potassium Chloride 80 meq/ Sterile Water 1,040 ml @ 150 mls/hr Q6H56M IV Last administered on 10/19/17at 14:00; Start 10/19/17 at 14 :00; Stop 10/19/17 at 14:22; Status DC Sodium Bicarbonate (Sodium Bicarbonate 8.4% Inj) 100 meq ONCE ONCE IV PUSH Last administered on 10/19/17at 23:24; Start 10/19/17 at 22:00; Stop 10/19/17 at 22:34; Status DC Sodium Chloride (NS Flush) 2 ml BID IV FLUSH Last administered on 10/29/17at 09: 46; Start 10/19/17 at 09:00 Sodium Chloride 38.5 meq/Sterile Water 1,009.625 ml @ 50 mls/hr [id number] IV Last administered on 10/25/17at 21:42; Start 10/22/17 at 14:00; Stop 10/26/17 at 14:23; Status DC Sodium Phosphate 30 mmol/Sodium Chloride 250 ml @ 42 mls/hr UNSCH PRN IV For Phosphorus < 2.5 mg/dL Last administered on 10/27/17at 11:32; Start 10/27/17 at 05:15; Stop 10/28/17 at 07:50; Status DC Succinylcholine Chloride (Quelicin Inj) 100 mg ONCE ONCE IV PUSH Last administered on 10/19/17at 02:59; Start 10/19/17 at 03:00; Stop 10/19/17 at 03:03 ; Status DC Terbutaline Sulfate (Brethine Inj) 1 mg UNSCH PRN SQ FOR EXTRAVASATION PROTOCOL ; Start 10/19/17 at 07:45 Vancomycin HCl 1000 mg/Sodium Chloride 250 ml @ 250 mls/hr ONCE ONCE IV Last administered on 10/25/17at 10:23; Start 10/25/17 at 08:15; Stop 10/25/17 at 09:14 ; Status DC Vancomycin HCl 1500 mg/Sodium Chloride 515 ml @ 257.5 mls/ hr ONCE ONCE IV Last administered on 10/19/17at 05:28; Start 10/19/17 at 05:00; Stop 10/19/17 at 06:59; Status DC Vancomycin HCl 2000 mg/Sodium Chloride 520 ml @ 257.5 mls/ hr ONCE ONCE IV Last administered on 10/21/17at 14:15; Start 10/21/17 at 14:00; Stop 10/21/17 at 16:01; Status DC Vasopressin 40 units/Dextrose 100 ml @ 1.5 mls/hr TITRATE PRN IV Blood Pressure Management Last administered on 10/20/17at 15:58; Start 10/19/17 at 07: 45; Stop 10/21/17 at 16:48; Status DC Water (Free Water) 400 ml Q4HR G-TUBE Last administered on 10/24/17at 12:00; Start 10/24/17 at 12:00; Stop 10/24/17 at 17:39; Status DC Date of Insertion: October 19, 2017 A/P Problem List: (1) Acute respiratory failure ICD Code: J96.00 - Acute respiratory failure, unspecified whether with hypoxia or hypercapnia (2) Acute encephalopathy ICD Code: G93.40 - Encephalopathy, unspecified Status: Acute (3) Normocytic anemia ICD Code: D64.9 - Anemia, unspecified (4) Lactic acidosis ICD Code: E87.2 - Acidosis Status: Acute (5) Hypoalbuminemia ICD Code: E88.09 - Other disorders of plasma-protein metabolism, not elsewhere classified (6) Hypophosphatemia ICD Code: E83.39 - Other disorders of phosphorus metabolism Status: Acute (7) Hypokalemia ICD Code: E87.6 - Hypokalemia Status: Acute (8) Hypermagnesemia ICD Code: E83.41 - Hypermagnesemia (9) Acute kidney injury ICD Code: N17.9 - Acute kidney failure, unspecified Status: Acute (10) Leukocytosis ICD Code: D72.829 - Elevated white blood cell count, unspecified Status: Acute (11) Hyponatremia ICD Code: E87.1 - Hypo-osmolality and hyponatremia Status: Acute (12) Hypertension ICD Code: I10 - Essential (primary) hypertension (13) Pyrexia ICD Code: R50.9 - Fever, unspecified Status: Acute (14) Depression ICD Code: F32.9 - Major depressive disorder, single episode, unspecified (15) Ketoacidosis due to secondary diabetes ICD Code: E13.10 - Other specified diabetes mellitus with ketoacidosis without coma Status: Acute (16) BMI 37.0-37.9, adult ICD Code: Z68.37 - Body mass index (BMI) 37.0-37.9, adult Status: Acute Assessment and Plan A/P Acute toxic metabolic encephalopathy Depression/anxiety -CT head negative, MRI brain negative. LP showed xanthochromia, HSV negative 10/19 EEG-moderate to severe encephalopathy. Holding Quetiapine 100 mg daily, divalproex 250 mg daily and buspirone 10 mg p.o. 3 times daily/home medication along with hydroxyzine 10 mg p.o. 3 times daily Patient did receive cyproheptadine 4 mg 1 for possible serotonin syndrome by ED physician Holding buspirone 10 mg daily, divalproex 250 mg daily/check level and ketamine 100 mg p.o. daily. Neurology Dr. Solis has signed off, MRI within normal limits. Neurological exam stable. sepsis- source possible lung continue Cefepime- initial blood cultures negative- follow the repeated blood cultures from 10/28. ID following. Hypertension, uncontrolled-continue Norvasc, Coreg,and hydralazine. Acute hypoxic and hypercarbic respiratory failure Extubated 10/24/2017, tolerating well, currently on nc o2. Albuterol/ipratropium aerosols every 6 hours with albuterol aerosols every 2 hours as needed dyspnea Possible upper GI bleed-continue Protonix for now. Diarrhea-C -diff negative. Acute hyperglycemic state Ketoacidosis -Currently on q4h SSI. Levemir 5 U q12h, hemoglobin A1c 13, triglycerides 208. Monitor ABGs. Acute kidney injury- resolving. Groin rash-could be fungal, start nystatin Leukocytosis Normocytic anemia Thrombocytopenia- improving. -s/p PRBC transfusion with improved H/H. -continue to monitor. Hypokalemia Hypophosphatemia Hypermagnesemia Replace electrolytes as clinically indicated. On protocol. PT evaluate and treat Prophylaxis GI -pantoprazole DVT -Lovenox Discharge Planning not ready for discharge. Problem Qualifiers (1) Acute respiratory failure: Qualified Codes: J96.01 - Acute respiratory failure with hypoxia; J96.02 - Acute respiratory failure with hypercapnia (2) Pyrexia: Qualified Codes: R50.9 - Fever, unspecified (3) Depression: Qualified Codes: F32.9 - Major depressive disorder, single episode, unspecified Frances Matamoros MD October 29, 2017 10:07
[2017-10-29] MEDS ORDERED: POTASSIUM CHLORIDE 10 MEQ CONTROLLED RELEASE TAB PO ONE ×3 (10:15→18:00)
--- NOTE | 2017-10-29 10:54 | HHI.NPPN ---
Subjective General Problems: Edema Renal Failure: Acute Interval History Renal function is improving. Hypokalemia is noted, replacement ordered. Review of Systems General Constitutional: Fatigue Cardiovascular Cardiac: Edema Gastrointestinal Gastrointestinal: Diarrhea Endocrine Endocrine: Thirst Objective Data Data Vital Signs Date Time Temp Pulse Resp B/P (MAP) Pulse Ox O2 Delivery O2 Flow Rate FiO2 10/29/17 08:01 94 Nasal Cannula 2.00 10/29/17 05:30 100 10/29/17 05:30 99.7 100 18 151/72 (98) 94 10/29/17 05:30 Nasal Cannula 2.00 10/29/17 00:00 99.0 104 18 145/72 (96) 95 10/29/17 00:00 95 Nasal Cannula 2.00 10/29/17 00:00 96 10/28/17 23:40 92 Nasal Cannula 2.00 10/28/17 21:30 Nasal Cannula 2.00 10/28/17 20:00 99.8 108 20 131/60 (83) 92 10/28/17 20:00 107 10/28/17 20:00 Room Air 10/28/17 19:25 Nasal Cannula 2.00 10/28/17 15:50 99.7 102 18 144/70 (94) 91 10/28/17 12:00 98.2 105 26 144/71 (95) 91 -: 10/29/17 0550 10/29/17 0550 Microbiology 10/28/17 Aerobic Blood Culture, Received Pending 10/28/17 Anaerobic Blood Culture, Received Pending 10/28/17 Aerobic Blood Culture, Received Pending 10/28/17 Anaerobic Blood Culture, Received Pending Tubes & Lines: Chiang Tubes & Lines Comment A line Drip Comment 1/4 NS Physical Exam General Appearance: Well Developed, Well Nourished, No Acute Distress, Comfortable Eyes Eye Exam: Pupils Equal, Pupils Reactive Neck Neck Exam: Neck Supple Pulmonary Resp Exam: Breath Sounds Equal, No Distress, Decreased Bases Cardiology CV Exam: Regular, Good Perfusion, Tachycardia Gastrointestinal/Abdomen GI Exam: Soft, Non-Tender, Bowel Sounds Present, Positive Bowel Movement, Distended Genitourinary Exam: Clear Urine Musculoskeletal MS Exam: Joints Intact, Normal Tone, Unable to Ambulate Integumentary Skin Exam: Clear, Warm, Dry, Intact Extremeties Extremities Exam: Pedal Pulses Palpable, Moderate Edema Neurologic Neuro Exam: Alert, Awake, Speech Clear, Moving All Extremities Psychiatric Psych Exam: Appropriate Responses Assessment/Plan Discussed Condition With: Patient Assessment Summary: CADY/Acute Renal Failure, Hypertension Electrolyte Assessment: Hypernatremia Problem List: (1) Acute kidney injury ICD Codes: N17.9 - Acute kidney failure, unspecified Status: Acute Plan: No baseline labs available for comparison renal failure was secondary to hyperglycemia/DKA and rhabdomyolysis s/p cardiac arrest with chest compressions. Renal function improving daily cr improved (2) Hypernatremia ICD Codes: E87.0 - Hyperosmolality and hypernatremia Status: Resolved Plan: Encouraged PO fliud intake Resolved. (3) Pyrexia ICD Codes: R50.9 - Fever, unspecified Status: Acute Plan: ID consulted s/p LP Improved. (4) Hyperglycemia ICD Codes: R73.9 - Hyperglycemia, unspecified Plan: resolving DKA maintain glucose 140-180 mg/dL while hospitalized He will need diabetic education (5) Hypokalemia ICD Codes: E87.6 - Hypokalemia Status: Acute Plan: continue to replace as needed follow labs Plan I will sign off at this time. Problem Qualifiers (1) Pyrexia: Qualified Codes: R50.9 - Fever, unspecified Shad Schroeder MD October 29, 2017 10:54
[2017-10-29] MEDS: ONDANSETRON ODT 4 MG TAB PO PRN ×2 (12:31→23:44)
[2017-10-29] MEDS: traMADol HCL 50 MG TAB PO PRN ×2 (13:59→23:43)
[2017-10-29] MEDS: metroNIDAZOLE 500 MG TAB PO SCH ×2 (14:01→23:44)
--- NOTE | 2017-10-29 14:40 | HHI.HCPN ---
Palliative care visit on Mr. Palomo for continued assistance with communication, goals of care, and assistance with symptoms. Mr. Palomo is lying in bed, awake and able to make his needs known. He verbalizes he is not having a good day, reports some stomach pain and lower extremity pain. Tells me he just received medication for his symptoms and is waiting to see if they have desired effect. While Mr. Palomo did not wish to engage in much conversation , I gently reviewed with him his inability to participate in medical decisions last week and [place] Statutes regarding proxy decision makers. He seemed surprised we never heard back from his son after the one returned voicemail. I also discussed with him health care surrogate and he has elected to appoint his sister, Kirsty Palomo as primary HCS and sister, Hermelinda Palomo as alternate HCS. He tells me he does not have their contact information but they will be helping him with everything moving forward. No contact information for either sister in his chart or EMR. Spoke with father Geovani Palomo , he confirms Kirsty and Hermelinda are the patient's sister. He state she does not have their contact information with him but will have them contact palliative care directly to provide contact information. I have also requested updated [place] for possible phone numbers for sisters. Mr. Palomo verbalizes he is open to having goals of care conversation and meeting with palliative care as he continued to make improvements in his neurologic status. Declines speaking further today due to his pain symptoms at this time. Palliative care will continue to follow throughout hospitalization and further clarify goals of care. Rosina Claire, DAISHA October 29, 2017 14:40
[2017-10-29] MEDS: RESP: ALBUTEROL 2.5 MG/IPRATROPIUM 0.5 MG NEB (SCH) NEB (15:57)
[2017-10-30] VITALS (8 sets, daily range): BP systolic 129–160; BP diastolic 69–92; PULSE 93–101; RESP 18–20; TEMP 97.9–100.3; O2SAT 92–94
[2017-10-30] MEDS: CHLORHEXIDINE GLUCONATE 2 % 1 PACK (2 CLOTHS) TOP SCH (01:37)
[2017-10-30 06:46] LABS: HEMATOCRIT 24.8 % (39.0-51.0); HEMOGLOBIN 8.4 GM/DL (13.0-17.0); MEAN CELL VOLUME 79.5 FL (80.0-100.0); MEAN PLATELET VOLUME 9.6 FL (7.0-11.0); PLATELET COUNT 391 TH/MM3 (150-450); RED BLOOD COUNT 3.12 MIL/MM3 (4.50-5.90); RED CELL DISTRIBUTION WIDTH 16.5 % (11.6-17.2); WHITE BLOOD COUNT 20.1 TH/MM3 (4.0-11.0)
[2017-10-30] MEDS: ARTIFICIAL TEARS OPTH SOLN 15 ML BTL EACH EYE SCH ×3 (06:49→22:00)
[2017-10-30] MEDS: metroNIDAZOLE 500 MG TAB PO SCH ×3 (06:49→21:54)
[2017-10-30] MEDS: hydrALAZINE HCL 50 MG TAB PO SCH ×3 (06:49→21:59)
[2017-10-30 07:06] LABS: BICARBONATE 28.4 MEQ/L (21.0-32.0); CALCIUM 7.5 MG/DL (8.5-10.1); CREATININE 1.1 MG/DL (0.60-1.30)
[2017-10-30] MEDS: CHLORHEXIDINE 0.12% (ORAL KIT) 15 ML CUP MT SCH ×2 (08:00→20:00)
[2017-10-30] MEDS: SODIUM CHLORIDE 0.9% FLUSH 10 ML FLUSH IV FLUSH SCH ×2 (09:28→21:54)
[2017-10-30] MEDS: CEFEPIME INJ 2,000 MG in SODIUM CHLORIDE 0.9% INJ 100 ML IV SCH ×2 (09:28→21:54)
[2017-10-30] MEDS: ENOXAPARIN SODIUM 40 MG/0.4 ML SYRINGE SQ SCH (09:31)
[2017-10-30] MEDS: PANTOPRAZOLE SOD 40 MG DELAYED RELEASE TAB PO SCH ×2 (09:31→21:54)
[2017-10-30] MEDS: CARVEDILOL 3.125 MG TAB PO SCH ×2 (09:31→21:54)
[2017-10-30] MEDS: traMADol HCL 50 MG TAB PO PRN (09:31)
[2017-10-30] MEDS: INSULIN DETEMIR 100 UNITS/ML VIAL SQ SCH ×2 (09:32→21:55)
[2017-10-30] MEDS: INSULIN ASPART SUPPLEMENTAL SCALE SQ SCH ×4 (09:32→21:55)
[2017-10-30] MEDS: NYSTATIN 100,000 U/GM PWD 15 GM BTL TOPICAL SCH ×2 (09:34→21:56)
--- NOTE | 2017-10-30 09:44 | HHI.PR ---
Subjective Remarks looks and feels more comfortable today. T max 100.3. abdominal pain is better. Objective Vitals Vital Signs Date Time Temp Pulse Resp B/P (MAP) Pulse Ox O2 Delivery O2 Flow Rate FiO2 10/30/17 08:00 98.2 100 20 148/81 (103) 93 10/30/17 04:00 93 10/30/17 04:00 100.3 100 18 151/92 (111) 93 10/30/17 00:00 99.9 96 18 160/91 (114) 94 10/30/17 00:00 95 10/29/17 20:00 Nasal Cannula 2.00 10/29/17 20:00 99 10/29/17 20:00 98.3 99 18 141/74 (96) 92 10/29/17 16:10 98.7 104 18 134/64 (87) 94 10/29/17 12:10 98.8 105 18 133/66 (88) 93 10/29/17 11:00 Nasal Cannula 2.00 21 10/29/17 10:00 Nasal Cannula 2.00 21 I/O 10/29/17 10/29/17 10/29/17 10/30/17 10/30/17 10/30/17 07:00 15:00 23:00 07:00 15:00 23:00 Intake Total 1300 ml 380 ml 222 ml Output Total 2600 ml 1400 ml 1900 ml Balance -1300 ml -1020 ml -1678 ml Intake Oral 1300 ml 380 ml 222 ml Output Urine Total 2600 ml 1400 ml 1900 ml # Bowel Movements 0 1 Result Diagram: 10/30/17 0603 10/30/17 0603 Imaging Last Impressions Abdomen/Pelvis CT 10/27/17 0000 Signed Impressions: CONCLUSION: 1. No evidence of retroperitoneal hemorrhage. 2. Bibasilar subsegmental airspace disease and small bilateral effusions. 3. Patchy areas of hypodensity throughout the liver and spleen of uncertain et iology. Considering patient's history a septic vascular embolic process should be considered. 4. Minimal air in the urinary bladder. 5. Developing anasarca. Chest X-Ray 10/26/17 0600 Signed Impressions: CONCLUSION: Diffuse consolidation likely related to diffuse underlying processes such as ed aaron or diffuse inflammatory change. Chest CT 10/25/17 0000 Signed Impressions: CONCLUSION: 1. Multiple bilateral scattered interstitial and airspace infiltrates througho ut both lung yuen suggestive of some type of inflammatory process. 2. Abnormal appearance of the liver. Recommend CT scan of the abdomen with IV contrast for further evaluation. Brain MRI 10/25/17 Signed Impressions: CONCLUSION: 1. Unremarkable MRI examination of the brain. Specifically, no cerebral edema or diffusion abnormality to suggest encephalitis. Head CT 10/24/17 Signed Impressions: CONCLUSION: 1. No acute intracranial abnormality. Gall Bladder Ultrasound 10/23/17 Signed Impressions: CONCLUSION: 1. There is increased echogenicity of the liver suggestive of fatty infiltrati on and/or hepatocellular disease. 2. No evidence of gallstones or biliary tract obstruction. Renal Ultrasound 10/19/17 Signed Impressions: Service Date/Time: Thursday, October 19, 2017 09:46 - CONCLUSION: Normal examination. Alexx Baig MD Objective Remarks GENERAL: This is a well-nourished, well-developed patient, in no apparent distress. CARDIOVASCULAR: Regular rate and regular rhythm without murmurs, gallops, or rubs. RESPIRATORY: Clear to auscultation. Breath sounds equal bilaterally. No wheezes , rales, or rhonchi. GASTROINTESTINAL: Abdomen soft, non-tender, nondistended. Normal, active bowel sounds MUSCULOSKELETAL: Extremities without clubbing, cyanosis, or edema. NEURO: Alert & Oriented x4 to person, place, time, situation. Moves all ext x4 Medications and IVs Inpatient Medications Acetaminophen 100 ml @ 400 mls/hr Q8H PRN IV fever Last administered on at 00:49; Start 10/19/17 at 03:30 Acetaminophen (Tylenol Supp) 650 mg ONCE ONCE RECTAL Last administered on 10/18at 23:00; Start 10/18/17 at 23:00; Stop 10/18/17 at 23:01; Status DC Albuterol Sulfate (Albuterol Neb) 2.5 mg Q2HR NEB PRN INH SOB/WHEEZING Last administered on 10/24/17at 08:36; Start 10/19/17 at 02:30 Albuterol/ Ipratropium (Duoneb Neb) 1 ampule Q8HR NEB NEB Last administered on 10/29/17at 15:57; Start 10/25/17 at 16:00; Stop 10/29/17 at 15:59; Status DC Amlodipine Besylate (Norvasc) 10 mg DAILY PO Last administered on 10/29/17at 09: 44; Start 10/26/17 at 09:00 Artificial Tears (Tears Naturale Opth Soln) 1 drop Q8HR EACH EYE Last administered on 10/30/17at 06:49; Start 10/19/17 at 06:00 Bisacodyl (Dulcolax Supp) 10 mg DAILY PRN RECTAL SEVERE CONSITIPATION; Start at 02:30 Calcium Chloride (Calcium Chloride Inj) 1 gm ONCE IV PUSH ; Start 10/19/17 at 16 :15; Stop 10/19/17 at 17:00; Status DC Calcium Gluconate (Calcium Gluconate Inj) 1 gm ONCE ONCE IV PUSH ; Start at 01:45; Stop 10/19/17 at 01:46; Status DC Carvedilol (Coreg) 3.125 mg Q12HR PO Last administered on 10/29/17at 23:45; Start 10/25/17 at 09:45 Cefepime HCl 2000 mg/Sodium Chloride 100 ml @ 200 mls/hr Q12H IV Last administered on 10/29/17at 21:00; Start 10/25/17 at 09:00 Ceftriaxone Sodium 1000 mg/ Sodium Chloride 100 ml @ 200 mls/hr ONCE ONCE IV Last administered on 10/18/17at 23:34; Start 10/18/17 at 23:30; Stop 10/19/17 at 00:03; Status DC Chlorhexidine Gluconate (Chlorhexidine 2% Cloth) 3 pack UNSCH PRN TOP HYGIENIC CARE; Start 10/19/17 at 02:30 Chlorhexidine Gluconate (Peridex 0.12% Liq) 15 ml BID@08,20 MT Last administered on 10/24/17at 08:17; Start 10/19/17 at 08:00 Chlorothiazide Sodium (Diuril Inj) 500 mg ONCE ONCE IV Last administered on at 13:17; Start 10/25/17 at 10:45; Stop 10/25/17 at 10:55; Status DC Cyproheptadine HCl (Periactin Liq) 4 mg ONCE ONCE PO ; Start 10/18/17 at 23:00 ; Stop 10/18/17 at 23:01; Status DC Dextrose (D50w (Vial) Inj) 50 ml UNSCH PRN IV PUSH HYPOGLYCEMIA-SEE COMMENTS; Start 10/24/17 at 21:00 Diatrizoate Meglum/ Diatrizoate Sod ( Gastrocourt Liq) 18 ml ONCE ONCE PO Last administered on 10/27/17at 20:02; Start 10/27/17 at 17:10; Stop 10/27/17 at 17:37; Status DC Enoxaparin Sodium (Lovenox Inj) 40 mg Q24H SQ Last administered on 10/29/17at 09 :44; Start 10/26/17 at 08:00 Etomidate (Amidate Inj) 10 mg ONCE ONCE IV PUSH Last administered on at 02:58; Start 10/19/17 at 03:00; Stop 10/19/17 at 03:03; Status DC Fentanyl Citrate 250 ml @ 5 mls/hr TITRATE PRN IV SEDATION Last administered on 10/24/17at 01:34; Start 10/23/17 at 18:00; Stop 10/24/17 at 17:39; Status DC Furosemide (Lasix Inj) 40 mg ONCE ONCE IV PUSH Last administered on 10/26/17at 12:38; Start 10/26/17 at 08:00; Stop 10/26/17 at 08:07; Status DC Glucagon (Glucagon Inj) 1 mg UNSCH PRN OTHER HYPOGLYCEMIA-SEE COMMENTS; Start 10/24/17 at 21:00 Hydralazine HCl (Apresoline) 50 mg Q8HR PO Last administered on 10/30/17at 06:49 ; Start 10/27/17 at 22:00 Insulin Aspart (NovoLOG SUPPLEMENTAL SCALE) 1 ACHS SLIDING SCALE SQ Last administered on 10/29/17at 18:51; Start 10/27/17 at 17:00 Insulin Detemir (Levemir Inj) 5 units Q12HR SQ Last administered on 10/29/17at 23:46; Start 10/25/17 at 10:00 Insulin Human Regular 100 ml @ 0 mls/hr ONCE ONCE IV Last administered on 10/19at 00:00; Start 10/18/17 at 23:30; Stop 10/18/17 at 23:39; Status DC Insulin Human Regular (NovoLIN R INJ) 10 units ONCE ONCE IV PUSH Last administered on 10/18/17at 23:34; Start 10/18/17 at 23:30; Stop 10/18/17 at 23:31 ; Status DC Insulin Human Regular 100 units/ Sodium Chloride 100 ml @ 2 mls/hr TITRATE PRN IV Blood Glucose Control Last administered on 10/23/17at 04:08; Start 10/20/17 at 01:45; Stop 10/24/17 at 20:50; Status DC Ketorolac Tromethamine (Toradol Inj) 30 mg ONCE ONCE IV PUSH Last administered on 10/18/17at 23:00; Start 10/18/17 at 23:00; Stop 10/18/17 at 23:01 ; Status DC Lactated Ringer's 1,000 ml @ 150 mls/hr Q6H40M IV Last administered on at 09:09; Start 10/21/17 at 14:00; Stop 10/22/17 at 10:58; Status DC Lactulose (Lactulose Liq) 30 ml DAILY PRN PO SEVERE CONSITIPATION; Start at 21:30; Status Future Hold Lorazepam (Ativan Inj) 1 mg ONCE ONCE IV PUSH Last administered on 10/19/17at 00:35; Start 10/19/17 at 00:15; Stop 10/19/17 at 00:16; Status DC Magnesium Hydroxide (Milk Of Magnesia Liq) 30 ml Q12H PRN PO Mild constipation ; Start 10/19/17 at 02:30; Status Future Hold Magnesium Oxide (Mag-Ox) 800 mg UNSCH PRN PO For Magnesium 1.2 - 1.6 mg/dL; Start 10/27/17 at 05:15; Stop 10/28/17 at 07:50; Status DC Magnesium Sulfate 2 gm/Sodium Chloride 100 ml @ 50 mls/hr UNSCH PRN IV For Magnesium 1.2 - 1.6 mg/dL; Start 10/27/17 at 05:15; Stop 10/28/17 at 07:50; Status DC Magnesium Sulfate 4 gm/Sodium Chloride 100 ml @ 50 mls/hr UNSCH PRN IV For Magnesium 0.9 - 1.1 mg/dL; Start 10/27/17 at 05:15; Stop 10/28/17 at 07:50; Status DC Metronidazole (Flagyl) 500 mg Q8HR PO Last administered on 10/30/17 06:49; Start 10/29/17 at 14:00 Midazolam HCl (Versed Inj) 4 mg NOW ONCE IV Last administered on 10/23/17 15: 20; Start 10/23/17 at 15:15; Stop 10/23/17 at 15:16; Status DC Miscellaneous Information 1 ONCE ONCE OTHER Last administered on 10/19/17at 23: 30; Start 10/19/17 at 23:30; Stop 10/19/17 at 23:31; Status DC Miscellaneous Information ([facility]) 1 [id number] Last administered on 10/19/17 02:30; Start 10/19/17 at 02:30 Morphine Sulfate (Morphine Inj) 2 mg Q2H PRN IV PUSH PAIN SCALE 6 TO 10 Last administered on 10/25/17 06:26; Start 10/19/17 at 02:30; Stop 10/25/17 at 09:33 ; Status DC Norepinephrine Bitartrate 4 mg/ Sodium Chloride 250 ml @ 7.5 mls/hr TITRATE PRN IV Blood pressure management Last administered on 10/20/17 06:30; Start at 03:30; Stop 10/23/17 at 08:34; Status DC Nystatin (Mycostatin Powder) 1 applic Q12HR TOPICAL Last administered on at 23:47; Start 10/27/17 at 21:00 Ondansetron HCl (Zofran Odt) 4 mg Q6H PRN PO NAUSEA OR VOMITING Last administered on 10/29/17at 23:44; Start 10/19/17 at 02:30 Ondansetron HCl (Zofran Inj) 4 mg Q6H PRN IV PUSH NAUSEA OR VOMITING; Start at 02:30; Stop 10/19/17 at 02:30; Status DC Pantoprazole Sodium (Protonix Inj) 40 mg BID IV PUSH Last administered on at 08:37; Start 10/19/17 at 09:00; Stop 10/27/17 at 16:20; Status DC Pantoprazole Sodium (Protonix) 40 mg Q12HR PO Last administered on 10/29/17at 23 :44; Start 10/27/17 at 21:00 Pharmacy Profile Note 0 ml @ 0 mls/hr UNSCH OTHER ; Start 10/19/17 at 04:00; Stop 10/21/17 at 16:48; Status DC Phenylephrine HCl 40 mg/Dextrose 500 ml @ 30 mls/hr TITRATE PRN IV Blood Pressure Management Last administered on 10/20/17at 01:55; Start 10/19/17 at 07: 45; Stop 10/21/17 at 16:48; Status DC Potassium Chloride 40 meq/ Sodium Chloride 520 ml @ 130 mls/hr ONCE ONCE IV- CENTRAL Last administered on 10/20/17at 13:49; Start 10/20/17 at 13:00; Stop at 16:59; Status DC Potassium Chloride 40 meq/ Sodium Chloride 38.5 meq/Sterile Water 1,029.625 ml @ 150 mls/hr Q6H52M IV Last administered on 10/19/17at 10:27; Start 10/19/17 at 02:45; Stop 10/19/17 at 14:22; Status DC Potassium Chloride/Sodium Chloride 1,000 ml @ 125 mls/hr Q8H IV Last administered on 10/19/17at 00:36; Start 10/19/17 at 00:15; Stop 10/19/17 at 02:29 ; Status DC Potassium Phosphate (K-Phos) 2,000 mg UNSCH PRN PO/TUBE SEE LABEL COMMENTS; Start 10/27/17 at 05:15; Stop 10/28/17 at 07:50; Status DC Potassium Phosphate 30 mmol/ Sodium Chloride 260 ml @ 42 mls/hr UNSCH PRN IV SEE LABEL COMMENTS; Start 10/27/17 at 05:15; Stop 10/28/17 at 07:50; Status DC Potassium Bicarb/ Potassium Chloride (K-Lyte Cl Eff) 50 meq UNSCH PRN PO For Potassium 3.3 - 3.5 mEq/L; Start 10/27/17 at 05:15; Stop 10/28/17 at 07:50; Status DC Potassium Chloride (KCl) 30 meq ONCE ONCE PO Last administered on 10/29/17at 18 :26; Start 10/29/17 at 18:00; Stop 10/29/17 at 18:01; Status DC Propofol 100 ml @ 3.24 mls/hr TITRATE PRN IV SEDATION; Start 10/19/17 at 03:00 ; Stop 10/23/17 at 08:34; Status DC Senna/Docusate Sodium (Candace-Colace) 1 tab BID PO Last administered on at 20:33; Start 10/19/17 at 09:00; Stop 10/27/17 at 16:20; Status DC Sennosides (Senokot) 17.2 mg Q12H PRN PO Moderate constipation; Start 10/19/17 at 02:30; Status Future Hold Sodium Bicarbonate 100 meq/Potassium Chloride 60 meq/ Sterile Water 1,000 ml @ 150 mls/hr Q6H40M IV ; Start 10/19/17 at 15:00; Stop 10/19/17 at 15:08; Status DC Sodium Bicarbonate 100 meq/Sterile Water 1,000 ml @ 150 mls/hr Q6H40M IV Last administered on 10/20/17at 12:17; Start 10/20/17 at 16:00; Stop 10/20/17 at 16:00 ; Status DC Sodium Bicarbonate 150 meq/Potassium Chloride 80 meq/ Sterile Water 1,040 ml @ 150 mls/hr Q6H56M IV Last administered on 10/19/17at 14:00; Start 10/19/17 at 14 :00; Stop 10/19/17 at 14:22; Status DC Sodium Bicarbonate (Sodium Bicarbonate 8.4% Inj) 100 meq ONCE ONCE IV PUSH Last administered on 10/19/17at 23:24; Start 10/19/17 at 22:00; Stop 10/19/17 at 22:34; Status DC Sodium Chloride (NS Flush) 2 ml BID IV FLUSH Last administered on 10/29/17at 23: 46; Start 10/19/17 at 09:00 Sodium Chloride 38.5 meq/Sterile Water 1,009.625 ml @ 50 mls/hr [id number] IV Last administered on 10/25/17at 21:42; Start 10/22/17 at 14:00; Stop 10/26/17 at 14:23; Status DC Sodium Phosphate 30 mmol/Sodium Chloride 250 ml @ 42 mls/hr UNSCH PRN IV For Phosphorus < 2.5 mg/dL Last administered on 10/27/17at 11:32; Start 10/27/17 at 05:15; Stop 10/28/17 at 07:50; Status DC Succinylcholine Chloride (Quelicin Inj) 100 mg ONCE ONCE IV PUSH Last administered on 10/19/17at 02:59; Start 10/19/17 at 03:00; Stop 10/19/17 at 03:03 ; Status DC Terbutaline Sulfate (Brethine Inj) 1 mg UNSCH PRN SQ FOR EXTRAVASATION PROTOCOL ; Start 10/19/17 at 07:45 Tramadol HCl (Ultram) 50 mg Q8H PRN PO PAIN 5-10 Last administered on at 23:43; Start 10/29/17 at 13:15 Vancomycin HCl 1000 mg/Sodium Chloride 250 ml @ 250 mls/hr ONCE ONCE IV Last administered on 10/25/17at 10:23; Start 10/25/17 at 08:15; Stop 10/25/17 at 09:14 ; Status DC Vancomycin HCl 1500 mg/Sodium Chloride 515 ml @ 257.5 mls/ hr ONCE ONCE IV Last administered on 10/19/17at 05:28; Start 10/19/17 at 05:00; Stop 10/19/17 at 06:59; Status DC Vancomycin HCl 2000 mg/Sodium Chloride 520 ml @ 257.5 mls/ hr ONCE ONCE IV Last administered on 10/21/17at 14:15; Start 10/21/17 at 14:00; Stop 10/21/17 at 16:01; Status DC Vasopressin 40 units/Dextrose 100 ml @ 1.5 mls/hr TITRATE PRN IV Blood Pressure Management Last administered on 10/20/17at 15:58; Start 10/19/17 at 07: 45; Stop 10/21/17 at 16:48; Status DC Water (Free Water) 400 ml Q4HR G-TUBE Last administered on 10/24/17at 12:00; Start 10/24/17 at 12:00; Stop 10/24/17 at 17:39; Status DC Date of Insertion: October 19, 2017 A/P Problem List: (1) Acute respiratory failure ICD Code: J96.00 - Acute respiratory failure, unspecified whether with hypoxia or hypercapnia (2) Acute encephalopathy ICD Code: G93.40 - Encephalopathy, unspecified Status: Acute (3) Normocytic anemia ICD Code: D64.9 - Anemia, unspecified (4) Lactic acidosis ICD Code: E87.2 - Acidosis Status: Acute (5) Hypoalbuminemia ICD Code: E88.09 - Other disorders of plasma-protein metabolism, not elsewhere classified (6) Hypophosphatemia ICD Code: E83.39 - Other disorders of phosphorus metabolism Status: Acute (7) Hypokalemia ICD Code: E87.6 - Hypokalemia Status: Acute (8) Hypermagnesemia ICD Code: E83.41 - Hypermagnesemia (9) Acute kidney injury ICD Code: N17.9 - Acute kidney failure, unspecified Status: Acute (10) Leukocytosis ICD Code: D72.829 - Elevated white blood cell count, unspecified Status: Acute (11) Hyponatremia ICD Code: E87.1 - Hypo-osmolality and hyponatremia Status: Acute (12) Hypertension ICD Code: I10 - Essential (primary) hypertension (13) Pyrexia ICD Code: R50.9 - Fever, unspecified Status: Acute (14) Depression ICD Code: F32.9 - Major depressive disorder, single episode, unspecified (15) Ketoacidosis due to secondary diabetes ICD Code: E13.10 - Other specified diabetes mellitus with ketoacidosis without coma Status: Acute (16) BMI 37.0-37.9, adult ICD Code: Z68.37 - Body mass index (BMI) 37.0-37.9, adult Status: Acute Assessment and Plan A/P Acute toxic metabolic encephalopathy Depression/anxiety -CT head negative, MRI brain negative. LP showed xanthochromia, HSV negative 10/19 EEG-moderate to severe encephalopathy. Holding Quetiapine 100 mg daily, divalproex 250 mg daily and buspirone 10 mg p.o. 3 times daily/home medication along with hydroxyzine 10 mg p.o. 3 times daily Patient did receive cyproheptadine 4 mg 1 for possible serotonin syndrome by ED physician Holding buspirone 10 mg daily, divalproex 250 mg daily/check level and ketamine 100 mg p.o. daily. Neurology Dr. Solis has signed off, MRI within normal limits. Neurological exam stable. sepsis- source possible lung- need to r/o endocarditis continue Cefepime- initial blood cultures negative- follow the repeated blood cultures from 10/28. cardiology consulted for SHASHI. ID following. Hypertension; continue Norvasc, Coreg,and hydralazine. Acute hypoxic and hypercarbic respiratory failure Extubated 10/24/2017, tolerating well, currently on nc o2. Albuterol/ipratropium aerosols every 6 hours with albuterol aerosols every 2 hours as needed dyspnea Possible upper GI bleed-continue Protonix for now. Diarrhea-C -diff negative. Acute hyperglycemic state Ketoacidosis -Currently on q4h SSI. Levemir 5 U q12h, hemoglobin A1c 13, triglycerides 208. Monitor ABGs. Acute kidney injury- resolving. Groin rash-could be fungal, start nystatin Leukocytosis Normocytic anemia- due to chronic disease? Thrombocytopenia- improving. -check iron panel and consult hematology. -stool for blood pending. -s/p PRBC transfusion with improved H/H. -continue to monitor. Hypokalemia Hypophosphatemia Hypermagnesemia Replace electrolytes as clinically indicated. PT evaluate and treat Prophylaxis GI -pantoprazole DVT -Lovenox d/w . Discharge Planning not ready for discharge. Problem Qualifiers (1) Acute respiratory failure: Qualified Codes: J96.01 - Acute respiratory failure with hypoxia; J96.02 - Acute respiratory failure with hypercapnia (2) Pyrexia: Qualified Codes: R50.9 - Fever, unspecified (3) Depression: Qualified Codes: F32.9 - Major depressive disorder, single episode, unspecified Frances Matamoros MD October 30, 2017 09:44
[2017-10-30] MEDS ORDERED: VANCOMYCIN INJ 1,000 MG in SODIUM CHLOR 0.9% 250 ML INJ 250 ML IV ONE (09:45)
[2017-10-30] MEDS ORDERED: POTASSIUM CHLORIDE 10 MEQ CONTROLLED RELEASE TAB PO ONE ×2 (09:45→14:00)
--- NOTE | 2017-10-30 09:45 | HHI.IDPN ---
Subjective Subjective Remarks Patient is a 42-year-old male, brought into the hospital for evaluation of multiple symptoms. He apparently has been having problem with poor p.o. intake , and thirst and increasing fluid intake. There is also mention that he has had problem with nausea and vomiting and some confusion. The symptoms have been going on for about a month. Was brought into the emergency room, and he was found to have a blood sugar of 1800, creatinine was up to 3, sodium 21, and he has multiple abnormal electrolytes. He also had acidosis, and high fevers. His white count was elevated. In the ED he became more unresponsive, and he ended up getting intubated. He was initially on pressors. He was also found to have a very elevated CPK. His electrolytes stabilized, and his acidosis improved. Creatinine improved, and he has improvement in his urine output. He had 2 blood cultures done and those are negative. He was started on empiric antibiotics for possible aspiration. Initial urinalysis was unremarkable. Patient remains on the vent. His mental status still has not improved. Neurology has been consulted. Patient's temperatures seem to have improved. His chest x-ray showing bilateral pulmonary infiltrates and some nodular infiltrates. He has been getting vancomycin, cefepime, and Flagyl. His CPKs are still elevated, and his LFTs were also elevated. Patient also during his hospitalization had episode of V. tach and was resuscitated successfully. Infectious disease consultation has been requested to evaluate patient with high fevers. Notes reviewed Temps low grade BP ok Feels better today compared to yesterday C/O abdominal pain, a little better Stool less C diff negative No N/V Very weak WBC up again CXR aishwarya infiltrates Not SOB No CP Echo report noted Antibiotics Cefepime Current Medications Medications (Trade) Dose Ordered Sig/Jacky Route Start Time Stop Time Status Last Admin (NS Flush) 2 ml UNSCH PRN IV FLUSH 10/19/17 02:30 (NS Flush) 2 ml BID IV FLUSH 10/19/17 09:00 10/29/17 23:46 (Albuterol Neb) 2.5 mg Q2HR NEB PRN INH 10/19/17 02:30 10/24/17 08:36 ([facility]) 1 Q361D XX 10/19/17 02:30 10/19/17 02:30 (Chlorhexidine 2% Cloth) Taper DAILY@04 TOP 10/19/17 04:00 10/15/18 03:59 10/27/17 04:00 (Chlorhexidine 2% Cloth) 3 pack UNSCH PRN TOP 10/19/17 02:30 (Milk Of Magnesia Liq) 30 ml Q12H PRN PO 10/19/17 02:30 Future Hold (Senokot) 17.2 mg Q12H PRN PO 10/19/17 02:30 Future Hold (Dulcolax Supp) 10 mg DAILY PRN RECTAL 10/19/17 02:30 (Zofran Odt) 4 mg Q6H PRN PO 10/19/17 02:30 10/29/17 23:44 (Tears Naturale Opth Soln) 1 drop Q8HR EACH EYE 10/19/17 06:00 10/30/17 06:49 (Peridex 0.12% Liq) 15 ml BID@08,20 MT 10/19/17 08:00 10/24/17 08:17 Acetaminophen 100 ml @ 400 mls/hr Q8H PRN IV 10/19/17 03:30 10/27/17 00:49 (Glucagon Inj) 1 mg UNSCH PRN OTHER 10/19/17 04:15 (Brethine Inj) 1 mg UNSCH PRN SQ 10/19/17 07:45 (D50w (Vial) Inj) 50 ml UNSCH PRN IV PUSH 10/19/17 23:30 10/23/17 05:24 (Lactulose Liq) 30 ml DAILY PRN PO 10/23/17 21:30 Future Hold (D50w (Vial) Inj) 50 ml UNSCH PRN IV PUSH 10/24/17 21:00 (Glucagon Inj) 1 mg UNSCH PRN OTHER 10/24/17 21:00 Cefepime HCl 2000 mg/Sodium Chloride 100 ml @ 200 mls/hr Q12H IV 10/25/17 09:00 10/29/17 21:00 (Levemir Inj) 5 units Q12HR SQ 10/25/17 10:00 10/29/17 23:46 (Norvasc) 10 mg DAILY PO 10/26/17 09:00 10/29/17 09:44 (Coreg) 3.125 mg Q12HR PO 10/25/17 09:45 10/29/17 23:45 (Lovenox Inj) 40 mg Q24H SQ 10/26/17 08:00 10/29/17 09:44 (Protonix) 40 mg Q12HR PO 10/27/17 21:00 10/29/17 23:44 (Apresoline) 50 mg Q8HR PO 10/27/17 22:00 10/30/17 06:49 (NovoLOG SUPPLEMENTAL SCALE) 1 ACHS SLIDING SCALE SQ 10/27/17 17:00 10/29/17 18:51 (Mycostatin Powder) 1 applic Q12HR TOPICAL 10/27/17 21:00 10/29/17 23:47 (Flagyl) 500 mg Q8HR PO 10/29/17 14:00 10/30/17 06:49 (Ultram) 50 mg Q8H PRN PO 10/29/17 13:15 10/29/17 23:43 Lines PIV no evidence of infection Past Medical History Depression/anxiety Hypertension NSAID use Allergies: Coded Allergies: No Known Allergies (Unverified Allergy, Unknown, 10/18/17) Objective . Vital Signs Date Time Temp Pulse Resp B/P (MAP) Pulse Ox O2 Delivery O2 Flow Rate FiO2 10/30/17 08:00 98.2 100 20 148/81 (103) 93 10/30/17 04:00 93 10/30/17 04:00 100.3 100 18 151/92 (111) 93 10/30/17 00:00 99.9 96 18 160/91 (114) 94 10/30/17 00:00 95 10/29/17 20:00 Nasal Cannula 2.00 10/29/17 20:00 99 10/29/17 20:00 98.3 99 18 141/74 (96) 92 10/29/17 16:10 98.7 104 18 134/64 (87) 94 10/29/17 12:10 98.8 105 18 133/66 (88) 93 10/29/17 11:00 Nasal Cannula 2.00 21 10/29/17 10:00 Nasal Cannula 2.00 21 . Laboratory Tests Test 10/29/17 05:50 10/30/17 06:03 White Blood Count 24.0 TH/MM3 20.1 TH/MM3 Red Blood Count 3.23 MIL/MM3 3.12 MIL/MM3 Hemoglobin 8.7 GM/DL 8.4 GM/DL Hematocrit 25.7 % 24.8 % Mean Corpuscular Volume 79.4 FL 79.5 FL Mean Corpuscular Hemoglobin 27.1 PG 27.0 PG Mean Corpuscular Hemoglobin Concent 34.1 % 34.0 % Red Cell Distribution Width 16.2 % 16.5 % Platelet Count 327 TH/MM3 391 TH/MM3 Mean Platelet Volume 9.9 FL 9.6 FL Laboratory Tests Test 10/29/17 05:50 10/30/17 06:03 Blood Urea Nitrogen 14 MG/DL 12 MG/DL Creatinine 1.30 MG/DL 1.10 MG/DL Random Glucose 204 MG/DL 152 MG/DL Total Protein 6.0 GM/DL Calcium Level 7.4 MG/DL 7.5 MG/DL Sodium Level 142 MEQ/L 143 MEQ/L Potassium Level 3.0 MEQ/L 3.0 MEQ/L Chloride Level 108 MEQ/L 107 MEQ/L Carbon Dioxide Level 23.3 MEQ/L 28.4 MEQ/L Anion Gap 11 MEQ/L 8 MEQ/L Estimat Glomerular Filtration Rate 74 ML/MIN 90 ML/MIN Protein Corrected Calcium 8.0 MG/DL Phosphorus Level 2.6 MG/DL Microbiology Date/Time Source Procedure Growth Status 10/28/17 17:50 Blood Peripheral Aerobic Blood Culture - Preliminary NO GROWTH IN 1 DAY Resulted 10/28/17 17:50 Blood Peripheral Anaerobic Blood Culture - Preliminary NO GROWTH IN 1 DAY Resulted 10/28/17 17:40 Blood Peripheral Aerobic Blood Culture - Preliminary NO GROWTH IN 1 DAY Resulted 10/28/17 17:40 Blood Peripheral Anaerobic Blood Culture - Preliminary NO GROWTH IN 1 DAY Resulted Imaging Last 72 hours Impressions Abdomen/Pelvis CT 10/27/17 0000 Signed Impressions: CONCLUSION: 1. No evidence of retroperitoneal hemorrhage. 2. Bibasilar subsegmental airspace disease and small bilateral effusions. 3. Patchy areas of hypodensity throughout the liver and spleen of uncertain et iology. Considering patient's history a septic vascular embolic process should be considered. 4. Minimal air in the urinary bladder. 5. Developing anasarca. Chest X-Ray 10/26/17 0600 Signed Impressions: CONCLUSION: Diffuse consolidation likely related to diffuse underlying processes such as ed aaron or diffuse inflammatory change. Last 72 hours Impressions Chest X-Ray 10/24/17 0600 Signed Impressions: CONCLUSION: No significant change. Bilateral pulmonary opacities remain. Head CT 10/24/17 Signed Impressions: CONCLUSION: 1. No acute intracranial abnormality. Gall Bladder Ultrasound 10/23/17 Signed Impressions: CONCLUSION: 1. There is increased echogenicity of the liver suggestive of fatty infiltrati on and/or hepatocellular disease. 2. No evidence of gallstones or biliary tract obstruction. Chest X-Ray 10/23/17 Signed Impressions: CONCLUSION: Scattered bilateral pulmonary infiltrates. Last Impressions Gall Bladder Ultrasound 10/23/17 Signed Impressions: CONCLUSION: Chest X-Ray 10/23/17 Signed Impressions: CONCLUSION: Scattered bilateral pulmonary infiltrates. Renal Ultrasound 10/19/17 Signed Impressions: Service Date/Time: Thursday, October 19, 2017 09:46 - CONCLUSION: Normal examination. Alexx Baig MD Physical Exam GENERAL: Awake and alert, NAD. SKIN: Cool and dry. No generalized rash. HEAD: Atraumatic. Normocephalic. No temporal wasting, or tenderness. EYES: [place] conjunctiva. No petechia or hemorrhage. Has dirty sclera. EARS, NOSE AND THROAT: Nose without bleeding or purulent nasal discharge. Moist mucosa NECK: Trachea midline. Supple and not tender, no meningeal signs CARDIOVASCULAR: Regular rate and rhythm. No murmurs, rubs or gallops heard RESPIRATORY: Decreased BS at bases ABDOMEN: Distended, mild tenderness, not guarding, bowel sounds present and hypoactive. EXTREMITIES: Warm, has pitting edema. Has embolic lesions tip of 3 fingers on his R hand NEUROLOGICAL: Grossly non-focal PSYCHIATRIC: Calm and cooperative LINE: No evidence of infection Assessment & Plan Remarks IMPRESSION Possible sepsis on initial presentation with fevers, dec LOC, MOSF - source possible lung, has aishwarya nodular infiltrates, BC negative, no sputum C/S Has multiple embolic lesions, source? - his BC have been negative - initial echo ok DM, DKA Elevated CPK Elevated LFTs Renal failure Acidosis, resolved Encephalopathy, ?metabolic, or LAY [employer] etiology Leukocytosis, persistent Anemia Fevers, better Diarrhea, C Diff negative RECOMMENDATION Continue Cefepime Check stool for OB Give dose of Vanco HIV Ab Hepatitis profile Ask cardiology to do SHASHI I have asked micro to hold BC longer to see if any fastidious organism growing Also on Flagyl GI or Heme evaluation Follow CBC Follow C/S Follow temps Monitor progress Explained plan to the patient D/W Haley Naranjo MD October 30, 2017 09:45
[2017-10-30 11:16] LABS: % SATURATION IRON PROFILE 8.9 % (20-50); IRON (FE) 15 MCG/DL (65-175); MAGNESIUM 1.4 MG/DL (1.5-2.5); TOTAL IRON BINDING CAPACITY 168 MCG/DL (250-450)
[2017-10-30 11:19] LABS: FERRITIN 1331 NG/ML (26-388)
--- NOTE | 2017-10-30 13:45 | MB ---
cc: Conor Herndon DO DATE: 10/30/2017 REASON FOR CONSULTATION: Consideration of SHASHI. HISTORY OF PRESENT ILLNESS: Geovani Palomo is a pleasant 42-year-old male who presented to [facility] on 10/19/2017 due to altered mental state with a blood sugar of 1800. Apparently, the patient had noticed thirst and diminished appetite before coming into the hospital. He was also in senior living and not had his blood sugar checked according to his sister. He has also had nausea, vomiting and delirium and so he has not been compliant with his medicine. Due to all of the above, his family convinced him to come to the hospital for further evaluation. He was noted to have a blood sugar of 1800, acute kidney injury and hyponatremia. Since that time, he was admitted to the ICU. It appears that he had an episode of V-tach on 10/19/2017 and was defibrillated once with return of spontaneous circulation. He was also intubated in the ED and has since been extubated. He has since been also seen by Infectious Disease. He was seen by Infectious Disease and placed on empiric antibiotics. He underwent a CT of the abdomen and pelvis and there was concern of patchy areas of hypodensity throughout the liver and spleen and there was a concern for septic vascular embolic process. His blood cultures have been negative. I was asked to see him in consideration of SHASHI. PAST MEDICAL HISTORY: 1. New onset diabetes mellitus. 2. Depression/anxiety. 3. Hypertension. PAST SURGICAL HISTORY: Unknown. ALLERGIES: NO KNOWN DRUG ALLERGIES. MEDICATIONS: 1. Amlodipine/benazepril 10/20 daily. 2. Lisinopril 20 mg b.i.d. 3. Naproxen 500 mg b.i.d. 4. Divalproex ER 250 mg daily. 5. Quetiapine 100 mg daily. 6. Buspirone 10 mg daily. 7. Hydroxyzine 10 mg t.i.d. as needed for allergies. 8. Miconazole 50 mg daily. FAMILY HISTORY: Unknown. SOCIAL HISTORY: The patient apparently had no history of drug abuse, tobacco abuse or alcohol abuse while in senior living. REVIEW OF SYSTEMS: Fourteen systems were reviewed including osteopathic pertinent positives and negatives above, otherwise negative. PHYSICAL EXAMINATION: VITAL SIGNS: Temperature 98.2, heart rate 100, blood pressure 148/81, respirations 20, pulse oximetry 93 percent on 2 liters. GENERAL: The patient appears well, in no acute distress. Alert, awake and oriented x3. HEENT: Extraocular muscles intact. Mucous membranes moist. NECK: Supple. No JVD at 45 degrees. No carotid bruits heard bilaterally. Carotid upstrokes brisk in nature. HEART: Regular rate and rhythm. Positive first and second heart sounds. No noted murmurs, gallops or rubs. LUNGS: Clear to auscultation bilaterally. No wheezes, rales or rhonchi. ABDOMEN: Soft, nontender, nondistended. No organomegaly noted. EXTREMITIES: No clubbing, cyanosis or edema. Femoral and distal pulses are intact bilaterally. NEUROLOGIC: No focal deficits. SKIN: Warm, dry and intact. OSTEOPATHIC: No kyphoscoliosis, lordosis or paraspinal tender points. LABORATORY DATA: Hemoglobin 8.4, hematocrit 24.8, platelets 391. Potassium 3.0, BUN 12, creatinine 1.10. Electrocardiogram (10/19/2017). IMPRESSIONS: 1. Acute encephalopathy. 2. Diabetic ketoacidosis. 3. Newly diagnosed diabetes mellitus. 4. Hyponatremia. 5. Hypertension. 6. Acute kidney injury. 7. Multiple electrolyte disturbances. 8. Acute respiratory failure requiring intubation and subsequent extubation. 9. Liver and spleen lesions of unknown cause, possibly due to septic embolic process. 10. Wide complex tachycardia requiring defibrillation. 11. Leukocytosis. RECOMMENDATIONS: 1. Mr. Palomo appears to have liver and spleen lesions and I agree with Infectious Disease that possible cardioembolic source, especially septic should be ruled out. 2. As of right now, blood cultures are negative and review of previous echocardiogram does not show any significant possible cause, although this should be ruled out with a transesophageal echocardiogram. 3. He will be n.p.o. after midnight with a plan for tomorrow. 4. If this is negative, then Infectious Disease will have to rule out possible other causes. 5. He did have ventricular tachycardic episode required defibrillation, but this is most likely a widening of his QRS. He did have an episode of wide complex tachycardia, but this is most likely due to having a potassium of 1.6 at the time. Thank you for allowing me to see Geovani Palomo. If there are any questions, please do not hesitate to call. DO TITO Sandhu/OPAL , 12:54 PM , 01:43 PM
--- NOTE | 2017-10-30 14:34 | HHI.HCPN ---
Reason for visit a. To assist with evaluation and management of symptoms including: fatigued , pain b. To assist medical decision maker(s) with: better understanding of current medical conditions; weighing benefits/burdens of medical treatment options; making medical treatment decisions. (Madhuri Weaver) Subjective/Interval History Pt seen today to follow up on comfort, as well as goals as he has had neurological improvement and may be able to participate more in his own decisions. S/p medical extubation last week 10/24, has had steady neurological improvement. transferred out of ICU. Still with low-grade fevers, elevated WBC. Status post LP 10/24, CSF pending. CT, MRI brain negative. ID following, has ordered cardiology consult for SHASHI rule out vegetation.[SHASHI planned for tomorrow] HIV, hepatitis, HSV serologies negative. Stool for C. difficile negative. Blood culture 10/28 no growth to date. Patient with persistent anemia, hematology consulted. Palliative care case management social worker Hazel Claire ERGONOMIC SPECIALIST saw patient yesterday, he was able to participate in discussions and completed healthcare surrogate designation. Patient seen today in room no visitors present. He is awake, mostly oriented. He appears to have some reasonable/limited insight into hospitalization. He does not recall his time on the ventilator, but understands he underwent cardiac resuscitation, was on a ventilator, and has had multiple medical issues during his hospitalization. He tells me he spoke with someone regarding a procedure to look for infection in his heart planned for tomorrow. He remembers meeting with Rosina yesterday to complete healthcare surrogate. He tells me his sister was by yesterday afternoon and the desk should have her contact information. Gently explore with him his hospital course including review of events during ICU including resuscitation. He indicates he understands he has survived a lot , and that he has tiana he can continue to get better. Gently explore with him ongoing evaluations to evaluate for possible infectious source and that cardiac vegetations could have very serious implications requiring long-term treatment. Explore with him potential for reintubation /further complications. Review reintubation status/ limitations on length of intubation etc, as things for him to think about. He does not wish to make any decisions today, but will plan to discuss w his sisters, and is open to ongoing discussions w palliative/other providers. He is open to palliative talking/meeting with his sisters once he has discussed conditions/any new findings with them. . (Madhuri Weaver) Advance Directives Durable Power of [employer]: Copy in medical record (Designates Dimitrios Montoyas, but document does not arsalan Mediccal or Health Care decision making.) (Madhuri Weaver) Advance Directive Specifics Date completed: 10/29/17 Health Care Surrogate(s): HCS sister Kirsty Palomo, 2nd Valerie Palomo . (Madhuri Weaver) Objective Vital Signs Date Time Temp Pulse Resp B/P (MAP) Pulse Ox O2 Delivery O2 Flow Rate FiO2 10/30/17 10:11 93 Nasal Cannula 2.00 10/30/17 08:00 98.2 100 20 148/81 (103) 93 10/30/17 04:00 93 10/30/17 04:00 100.3 100 18 151/92 (111) 93 10/30/17 00:00 99.9 96 18 160/91 (114) 94 10/30/17 00:00 95 10/29/17 20:00 Nasal Cannula 2.00 10/29/17 20:00 99 10/29/17 20:00 98.3 99 18 141/74 (96) 92 10/29/17 16:10 98.7 104 18 134/64 (87) 94 Intake & Output 10/30/17 10/30/17 06:59 18:59 Intake Total 222 ml 240 ml Output Total 1900 ml 500 ml Balance -1678 ml -260 ml Intake Oral 222 ml 240 ml Output Urine Total 1900 ml 500 ml # Bowel Movements 1 Physical Exam CONSTITUTIONAL/GENERAL: This is an adequately nourished patient, alert, no distress TUBES/LINES/DRAINS: NC O2, PIV RUE SKIN: No jaundice, rashes, or lesions. skin warm/dry. Many tattoos to trunk, UE. CARDIOVASCULAR: Regular rate and rhythm , no murmur. No JVD. Peripheral pulses symmetric. trace pedal edema RESPIRATORY/CHEST: Symmetric, unlabored respirations. ON NC. Clear, diminished. GASTROINTESTINAL: Abdomen soft, round, non-tender, nondistended. No palpable masses. No guarding. Bowel sounds normoactive GENITOURINARY: Without palpable bladder distension. Chiang catheter in place. MUSCULOSKELETAL: Extremities without clubbing, cyanosis. Trace pedal edema. NEUROLOGICAL: Alert, mostly oriented. appropriate, reasonable insight. weak, moves all 4 extremities PSYCHIATRIC:no evident anxiety or depression. . (Madhuri Weaver) Diagnostic Tests Laboratory Laboratory Tests Test 10/27/17 16:05 10/28/17 03:53 10/29/17 05:50 10/30/17 06:03 Stool C. difficile Toxin (PCR) NEGATIVE (NEGATIVE) Stl C. difficile Toxin Epiderm 027 PRESUMPTIVE NEGATIVE White Blood Count 31.4 TH/MM3 (4.0-11.0) 24.0 TH/MM3 (4.0-11.0) 20.1 TH/MM3 (4.0-11.0) Red Blood Count 3.20 MIL/MM3 (4.50-5.90) 3.23 MIL/MM3 (4.50-5.90) 3.12 MIL/MM3 (4.50-5.90) Hemoglobin 8.6 GM/DL (13.0-17.0) 8.7 GM/DL (13.0-17.0) 8.4 GM/DL (13.0-17.0) Hematocrit 25.2 % (39.0-51.0) 25.7 % (39.0-51.0) 24.8 % (39.0-51.0) Mean Corpuscular Volume 78.7 FL (80.0-100.0) 79.4 FL (80.0-100.0) 79.5 FL (80.0-100.0) Mean Corpuscular Hemoglobin 26.8 PG (27.0-34.0) 27.1 PG (27.0-34.0) 27.0 PG (27.0-34.0) Mean Corpuscular Hemoglobin Concent 34.1 % (32.0-36.0) 34.1 % (32.0-36.0) 34.0 % (32.0-36.0) Red Cell Distribution Width 16.6 % (11.6-17.2) 16.2 % (11.6-17.2) 16.5 % (11.6-17.2) Platelet Count 325 TH/MM3 (150-450) 327 TH/MM3 (150-450) 391 TH/MM3 (150-450) Mean Platelet Volume 9.3 FL (7.0-11.0) 9.9 FL (7.0-11.0) 9.6 FL (7.0-11.0) Neutrophils (%) (Auto) 80.2 % (16.0-70.0) Lymphocytes (%) (Auto) 9.4 % (9.0-44.0) Monocytes (%) (Auto) 9.3 % (0.0-8.0) Eosinophils (%) (Auto) 0.6 % (0.0-4.0) Basophils (%) (Auto) 0.5 % (0.0-2.0) Neutrophils # (Auto) 25.2 TH/MM3 (1.8-7.7) Lymphocytes # (Auto) 2.9 TH/MM3 (1.0-4.8) Monocytes # (Auto) 2.9 TH/MM3 (0-0.9) Eosinophils # (Auto) 0.2 TH/MM3 (0-0.4) Basophils # (Auto) 0.2 TH/MM3 (0-0.2) CBC Comment AUTO DIFF Differential Total Cells Counted 100 Neutrophils % (Manual) 76 % (16-70) Band Neutrophils % 9 % (0-6) Lymphocytes % 8 % (9-44) Monocytes % 4 % (0-8) Eosinophils % 2 % (0-4) Neutrophils # (Manual) 27.0 TH/MM3 (1.8-7.7) Metamyelocytes 1 % (0-1) Nucleated Red Blood Cells 4 /100 WBC (0-0) Differential Comment FINAL DIFF MANUAL Atypical Lymphocytes % (0-0) Toxic Granulation 1+ (NORMAL) Platelet Estimate NORMAL (NORMAL) Platelet Morphology Comment NORMAL (NORMAL) Basophilic Stippling FAINT (NORMAL) Target Cells 1+ (NORMAL) Blood Urea Nitrogen 21 MG/DL (7-18) 14 MG/DL (7-18) 12 MG/DL (7-18) Creatinine 1.38 MG/DL (0.60-1.30) 1.30 MG/DL (0.60-1.30) 1.10 MG/DL (0.60-1.30) Random Glucose 185 MG/DL (74-106) 204 MG/DL (74-106) 152 MG/DL (74-106) Calcium Level 7.5 MG/DL (8.5-10.1) 7.4 MG/DL (8.5-10.1) 7.5 MG/DL (8.5-10.1) Sodium Level 143 MEQ/L (136-145) 142 MEQ/L (136-145) 143 MEQ/L (136-145) Potassium Level 2.8 MEQ/L (3.5-5.1) 3.0 MEQ/L (3.5-5.1) 3.0 MEQ/L (3.5-5.1) Chloride Level 109 MEQ/L (98-107) 108 MEQ/L (98-107) 107 MEQ/L (98-107) Carbon Dioxide Level 21.9 MEQ/L (21.0-32.0) 23.3 MEQ/L (21.0-32.0) 28.4 MEQ/L (21.0-32.0) Anion Gap 12 MEQ/L (5-15) 11 MEQ/L (5-15) 8 MEQ/L (5-15) Estimat Glomerular Filtration Rate 69 ML/MIN (>89) 74 ML/MIN (>89) 90 ML/MIN (>89) Total Protein 6.0 GM/DL (6.4-8.2) Protein Corrected Calcium 8.0 MG/DL (8.5-10.1) Phosphorus Level 2.6 MG/DL (2.5-4.9) Magnesium Level 1.4 MG/DL (1.5-2.5) Iron Level 15 MCG/DL (65-175) Total Iron Binding Capacity 168 MCG/DL (250-450) Percent Iron Saturation 8.9 % (20-50) Ferritin 1331 NG/ML (26-388) Test 10/30/17 10:46 Hepatitis A IgM Antibody NONREACTIVE (NONREACTIVE) Hepatitis B Surface Antigen NONREACTIVE (NONREACTIVE) Hepatitis B Core IgM Antibody NONREACTIVE (NONREACTIVE) Hepatitis C IgG Antibody NONREACTIVE (NONREACTIVE) HIV (1&2) Ab and P24 Ag, 4th Gener NONREACTIVE (NONREACTIVE) (Madhuri Weaver) Result Diagram: 10/30/1760210/30/17 06 Microbiology Microbiology Date/Time Source Procedure Growth Status 10/28/17 17:50 Blood Peripheral Aerobic Blood Culture - Preliminary NO GROWTH IN 2 DAYS Resulted 10/28/17 17:50 Blood Peripheral Anaerobic Blood Culture - Preliminary NO GROWTH IN 2 DAYS Resulted 10/28/17 17:40 Blood Peripheral Aerobic Blood Culture - Preliminary NO GROWTH IN 2 DAYS Resulted 10/28/17 17:40 Blood Peripheral Anaerobic Blood Culture - Preliminary NO GROWTH IN 2 DAYS Resulted Imaging Last Impressions Abdomen/Pelvis CT 10/27/17 Signed Impressions: CONCLUSION: 1. No evidence of retroperitoneal hemorrhage. 2. Bibasilar subsegmental airspace disease and small bilateral effusions. 3. Patchy areas of hypodensity throughout the liver and spleen of uncertain et iology. Considering patient's history a septic vascular embolic process should be considered. 4. Minimal air in the urinary bladder. 5. Developing anasarca. Chest X-Ray 10/26/17 0600 Signed Impressions: CONCLUSION: Diffuse consolidation likely related to diffuse underlying processes such as ed aaron or diffuse inflammatory change. Chest CT 10/25/17 Signed Impressions: CONCLUSION: 1. Multiple bilateral scattered interstitial and airspace infiltrates througho ut both lung yuen suggestive of some type of inflammatory process. 2. Abnormal appearance of the liver. Recommend CT scan of the abdomen with IV contrast for further evaluation. Brain MRI 10/25/17 Signed Impressions: CONCLUSION: 1. Unremarkable MRI examination of the brain. Specifically, no cerebral edema or diffusion abnormality to suggest encephalitis. Head CT 10/24/17 Signed Impressions: CONCLUSION: 1. No acute intracranial abnormality. Gall Bladder Ultrasound 10/23/17 Signed Impressions: CONCLUSION: 1. There is increased echogenicity of the liver suggestive of fatty infiltrati on and/or hepatocellular disease. 2. No evidence of gallstones or biliary tract obstruction. Renal Ultrasound 10/19/17 Signed Impressions: Service Date/Time: Thursday, October 19, 2017 09:46 - CONCLUSION: Normal examination. Alexx Baig MD Procedures Intubation 10/18. Central line placed 10/18. A line placement 10/19. (Madhuri Weaver) Assessment and Plan Disease Oriented Problem List: (1) Sepsis (2) Arrhythmia Comment: V-Tach then cardiac arrest. (3) Lactic acidosis (4) Acute kidney injury (5) Acute encephalopathy (6) Acute respiratory failure Comment: bilateral pulmonary infiltrates (7) Hyperglycemia Symptom Scale: (1) Fatigue 0-10 Scale: Unable to quantify (2) Pain 0-10 Scale: 0 Pertinent Non-Medical Issues Psychosocial:recently in half-way. He served in the [employer]. On disability Spiritual: unknown Legal: POA did not give power for health care decision making to pt's cousin. His children daughter and son has not been reachable. pt neuro status improving, now able to participate in decision making. has also surrogate designation naming his 2 sisters as surrogates. Patient father HAD been serving as proxy however he is now completed healthcare surrogate designation naming his sisters. Health care proxy is pt's Father Geovani Palomo. Ethical issues impacting care:none Important Contacts Sister- [facility] Kirsty Palomo [phone] Sister Vlaerie Palomo, [facility] Geovani Palomo (father) [phone] We have made several attempts to contact pt's son and daughter and they have not been reasonably reachable. His adult Children Christofer Ryan and Arin Ryan has been estranged from patient Christofer Palomo [phone] (son) Dimitrios Castelan(cousin) [phone] and [phone] POA but only financial. Heather (aunt) [phone] Adali Castelan (cousin) [phone] Denise Gould (significant other).[phone] Prognosis 42 year old male with came in with sepsis- with respiratory failure, hyperglycemia with dka, hypokalemia. On 10/19 coded V-tach . Prognosis is guarded and still remains critical, but pt clinical condition has improved. Code Status: Full Code Plan * Code= full code * decision making: pt neuro status improving, now able to participate in decision making. has also surrogate designation naming his 2 sisters as surrogates. Patient father HAD been serving as proxy however he is now completed healthcare surrogate designation naming his sisters. * Symptoms- -- Pain- s/p cpr, intubation/extubation. now indicates he has hx chronic back pain, pain to legs "sharp pain " to feet. +today c/o abdominal pain/nausea ongoing during hospital course. he has prn tramadol; indicates this has been effective for him in the past. has 50mg Q 8 hr prn, has used 3 doses since yesterday. Will cont to evaluate effectiveness/requirements -- Anxiety- associated with pt's critical condition. pt neurologically improved, no new med rec for now. * Goals of Treatment : Aggressive. Pt to have ongoing discussions with family regarding reintubation/ possible limitations on etc. open to ongoing conversations as clinical course evolves. * Palliative care will continue to follow during hospital course as condition evolves, to assist patient/decision-maker with understanding of medical conditions, weighing benefits/burdens of treatment options, for clarification of goals of treatment. Additionally will assist with any symptoms of palliative concern (Madhuri Weaver) Time Spent Total Floor Time (mins): 25 (chart review , d/w pt) (Madhuri Weaver) Attestation To help prompt me to consider important information that might be impacting today's encounter and assessment, information from prior notes written by myself or my colleagues may have been "brought forward" into today's note. My signature on this note, however, is an attestation that I personally performed the exam, history, and/or decision-making noted today, and, unless otherwise indicated, the interactions with patient, family, and staff as well as the review of records all occurred today. I also attest that the listed assessment and stated plan reflect my best clinical judgment today based on the combination of historical information, prior notes, and today's exam/ interactions. When time spent is documented, it refers only to time spent today by the signer, or if indicated, combined time spent today by collaborating physician/nurse practitioner. (Madhuri Weaver) Collaborating MD Comments Chart reviewed. Case discussed with palliative care AUTOMOTIVE PROFESSIONAL. Above JOSEPHINE note reviewed and I concur. . (Lee Infante MD) Madhuri Weaver October 30, 2017 14:30 Lee Infante MD Nov 17, 2017 15:35
--- NOTE | 2017-10-30 18:25 | MB ---
cc: Presley Lux MD, Boon Y MD DATE: 10/30/2017 ATTENDING PHYSICIAN: Dr. Matamoros REASON FOR CONSULTATION: Hematology was consulted to render an opinion regarding patient with anemia. HISTORY OF PRESENT ILLNESS: The patient is a 42-year-old male who presented to the hospital 10/19 with nausea, vomiting and mental status change. He was noted to have a blood glucose of 1800. He also had diabetic ketoacidosis. He was noted to have acute renal failure and electrolyte abnormality. He developed V-tach and was admitted to the intensive care unit. He was intubated, but subsequently extubated. He developed multiorgan failure. He had developed worsening anemia. Hemoglobin trended down to 6.6 and he received 2 units of packed red blood cell transfusion 10/27. He is feeling a little better. He denies any melena or hematochezia. He still has lower abdominal pain. He still has shortness of breath and occasional cough. He denies any chest pressure or palpitation. He has been afebrile. He denies any hematuria. PAST MEDICAL HISTORY: 1. Newly diagnosed diabetes. 2. Depression and anxiety. 3. Hypertension. PAST SURGICAL HISTORY: None. FAMILY HISTORY: One son and daughter, both healthy. He has 5 sisters, all healthy. No family history of sickle cell disease. SOCIAL HISTORY: He quit tobacco about 2 months ago. Denies drinking alcohol. ALLERGIES: NO KNOWN DRUG ALLERGIES. CURRENT MEDICATIONS: 1. Flagyl. 2. Hydralazine. 3. Protonix. 4. Nystatin 5. Insulin. 6. Amlodipine. 7. Lovenox. 8. Carvedilol. 9. Cefepime. REVIEW OF SYSTEMS: CONSTITUTIONAL: As above. EYES: Negative. ENT: Negative. CARDIOVASCULAR: As above. RESPIRATORY: As above. GASTROINTESTINAL: As above. GENITOURINARY: Denied dysuria or hematuria. MUSCULOSKELETAL: Negative. ENDOCRINE: Negative. HEMATOLOGY: As above. DERMATOLOGIC: Negative. PSYCHIATRIC: Negative. NEUROLOGIC: Negative. PHYSICAL EXAMINATION: VITAL SIGNS: Temperature 97.9, T-max 100.3, blood pressure 129/69, O2 saturation 93% on 2 liters nasal cannula. GENERAL: He is alert, oriented x3 in no acute distress, looks a little weak. HEENT: Atraumatic, normocephalic. Pupils are equal, round, reactive to light. Oropharynx dry mucosa. No lesion. NECK: No thyromegaly. No palpable mass. LYMPHATIC: No palpable cervical, clavicular, axillary, or inguinal lymph node. CARDIOVASCULAR: Regular S1, S2. No murmur. LUNGS: Clear to auscultation anteriorly. ABDOMEN: Soft, a little tender diffusely. No rebound or rigidity. Positive bowel sounds. I could not palpate liver or spleen. EXTREMITIES: No cyanosis or clubbing. He has trace ankle edema. SCDs are in place. NEUROLOGIC: Nonfocal. LABORATORY DATA: Dated 10/30/2017 was reviewed. ASSESSMENT AND PLAN: 1. Anemia, unknown chronicity. He has microcytosis. He presented with a hemoglobin of 10.5. Hemoglobin trended down to as low as 6.6 and he received 2 units of packed red blood cells on 10/27. Over the last few days, hemoglobin has been around 8.4. He denies personal history or family history of sickle cell disease or thalassemia. He denies any gastrointestinal bleed. This is less likely to be hemolysis. I think the anemia is likely multifactorial due to sepsis and multi organ failure causing transient bone marrow suppression. He could have iron deficiency as well but difficult to intepret the iron studies due to recent transfusion. We will proceed with anemia workup. I recommend to continue to monitor CBC and transfuse as needed. 2. Leukocytosis due to sepsis. His white blood cell count has trended lower. He still has low-grade temperature. Peripheral smear 2 days ago still showed bandemia. 3. Diabetic ketoacidosis which has resolved. 4. Acute renal failure is improving. 5. Acute encephalopathy also resolving. 6. Hypertension, controlled. RECOMMENDATIONS: 1. Proceed with anemia workup. 2. Monitor CBC. 3. Recommend transfusion if hemoglobin trends below 7. 4. Check stool occult blood. Thank you, Dr. Matamoros, for asking me to see this patient. MD DEACON Freitas/ , 05:35 PM , 06:23 PM JESSICA
[2017-10-31] VITALS (11 sets, daily range): BP systolic 134–157; BP diastolic 66–98; PULSE 66–112; RESP 16–18; TEMP 99.2–101; O2SAT 91–97
[2017-10-31] MEDS: CHLORHEXIDINE GLUCONATE 2 % 1 PACK (2 CLOTHS) TOP SCH (04:00)
[2017-10-31] MEDS: hydrALAZINE HCL 50 MG TAB PO SCH ×3 (06:11→23:13)
[2017-10-31] MEDS: ARTIFICIAL TEARS OPTH SOLN 15 ML BTL EACH EYE SCH ×3 (06:11→22:00)
[2017-10-31] MEDS: metroNIDAZOLE 500 MG TAB PO SCH ×3 (06:11→23:13)
[2017-10-31 07:00] LABS: HEMATOCRIT 25.3 % (39.0-51.0); HEMOGLOBIN 8.5 GM/DL (13.0-17.0); MEAN CELL VOLUME 79.8 FL (80.0-100.0); MEAN CORPUSCULAR HEMOGLOBIN 26.9 PG (27.0-34.0); MEAN CORPUSCULAR HGB CONC 33.7 % (32.0-36.0); MEAN PLATELET VOLUME 10.1 FL (7.0-11.0); PLATELET COUNT 444 TH/MM3 (150-450); RED BLOOD COUNT 3.16 MIL/MM3 (4.50-5.90); WHITE BLOOD COUNT 18.9 TH/MM3 (4.0-11.0)
[2017-10-31 07:11] LABS: RETIC % 6.8 % (0.4-3.0)
[2017-10-31 07:26] LABS: CREATININE 1.03 MG/DL (0.60-1.30)
[2017-10-31 07:36] LABS: FOLATE 15.7 NG/ML (3.1-17.5)
[2017-10-31 07:41] LABS: WESTERGREN SEDIMENTATION RATE GREATER THAN 140 mm/hr (0-15)
[2017-10-31] MEDS: CHLORHEXIDINE 0.12% (ORAL KIT) 15 ML CUP MT SCH ×2 (08:00→20:00)
[2017-10-31] MEDS: INSULIN ASPART SUPPLEMENTAL SCALE SQ SCH ×4 (08:00→23:16)
[2017-10-31] MEDS: ENOXAPARIN SODIUM 40 MG/0.4 ML SYRINGE SQ SCH (08:00)
[2017-10-31] MEDS: INSULIN DETEMIR 100 UNITS/ML VIAL SQ SCH ×2 (09:00→23:15)
--- NOTE | 2017-10-31 09:21 | HHI.PR ---
Subjective Remarks in no acute distress. however with mild sob. Tmax 101. awaiting SHASHI. d/w the RN. Objective Vitals Vital Signs Date Time Temp Pulse Resp B/P (MAP) Pulse Ox O2 Delivery O2 Flow Rate FiO2 10/31/17 06:13 66 142/66 (91) 10/31/17 04:00 101.0 100 18 157/79 (105) 92 10/31/17 04:00 98 10/31/17 00:00 99.2 101 18 147/78 (101) 94 10/30/17 22:00 Nasal Cannula 2.00 21 10/30/17 20:00 99.2 97 18 140/75 (96) 92 10/30/17 20:00 101 10/30/17 18:03 Nasal Cannula 2.00 21 10/30/17 17:20 93 Nasal Cannula 2.00 10/30/17 15:57 97.9 95 20 129/69 (89) 93 10/30/17 12:00 98.4 99 20 130/73 (92) 93 10/30/17 10:11 93 Nasal Cannula 2.00 I/O 10/30/17 10/30/17 10/30/17 10/31/17 10/31/17 10/31/17 07:00 15:00 23:00 07:00 15:00 23:00 Intake Total 222 ml 240 ml 820 ml Output Total 1900 ml 500 ml 1200 ml 2150 ml Balance -1678 ml -260 ml -380 ml -2150 ml Intake Oral 222 ml 240 ml 720 ml IV Total 100 ml Output Urine Total 1900 ml 500 ml 1200 ml 2150 ml # Bowel Movements 1 Result Diagram: 10/31/17 0542 10/31/17 0542 Imaging Last Impressions Abdomen/Pelvis CT 10/27/17 0000 Signed Impressions: CONCLUSION: 1. No evidence of retroperitoneal hemorrhage. 2. Bibasilar subsegmental airspace disease and small bilateral effusions. 3. Patchy areas of hypodensity throughout the liver and spleen of uncertain et iology. Considering patient's history a septic vascular embolic process should be considered. 4. Minimal air in the urinary bladder. 5. Developing anasarca. Chest X-Ray 10/26/17 0600 Signed Impressions: CONCLUSION: Diffuse consolidation likely related to diffuse underlying processes such as ed aaron or diffuse inflammatory change. Chest CT 10/25/17 Signed Impressions: CONCLUSION: 1. Multiple bilateral scattered interstitial and airspace infiltrates througho ut both lung yuen suggestive of some type of inflammatory process. 2. Abnormal appearance of the liver. Recommend CT scan of the abdomen with IV contrast for further evaluation. Brain MRI 10/25/17 Signed Impressions: CONCLUSION: 1. Unremarkable MRI examination of the brain. Specifically, no cerebral edema or diffusion abnormality to suggest encephalitis. Head CT 10/24/17 Signed Impressions: CONCLUSION: 1. No acute intracranial abnormality. Gall Bladder Ultrasound 10/23/17 Signed Impressions: CONCLUSION: 1. There is increased echogenicity of the liver suggestive of fatty infiltrati on and/or hepatocellular disease. 2. No evidence of gallstones or biliary tract obstruction. Renal Ultrasound 10/19/17 Signed Impressions: Service Date/Time: Thursday, October 19, 2017 09:46 - CONCLUSION: Normal examination. Alexx Baig MD Objective Remarks GENERAL: This is a well-nourished, well-developed patient, in no apparent distress. CARDIOVASCULAR: Regular rate and regular rhythm without murmurs, gallops, or rubs. RESPIRATORY: Clear to auscultation. Breath sounds equal bilaterally. No wheezes , rales, or rhonchi. GASTROINTESTINAL: Abdomen soft, non-tender, nondistended. Normal, active bowel sounds MUSCULOSKELETAL: blackish discoloration of the tip of the fingers; right 3rd/ 4th and 5th digits. NEURO: Alert & Oriented x4 to person, place, time, situation. Moves all ext x4 Medications and IVs Inpatient Medications Acetaminophen 100 ml @ 400 mls/hr Q8H PRN IV fever Last administered on at 00:49; Start 10/19/17 at 03:30 Acetaminophen (Tylenol Supp) 650 mg ONCE ONCE RECTAL Last administered on 10/18at 23:00; Start 10/18/17 at 23:00; Stop 10/18/17 at 23:01; Status DC Albuterol Sulfate (Albuterol Neb) 2.5 mg Q2HR NEB PRN INH SOB/WHEEZING Last administered on 10/24/17at 08:36; Start 10/19/17 at 02:30 Albuterol/ Ipratropium (Duoneb Neb) 1 ampule Q8HR NEB NEB Last administered on 10/29/17 15:57; Start 10/25/17 at 16:00; Stop 10/29/17 at 15:59; Status DC Amlodipine Besylate (Norvasc) 10 mg DAILY PO Last administered on 10/30/17at 09: 31; Start 10/26/17 at 09:00 Artificial Tears (Tears Naturale Opth Soln) 1 drop Q8HR EACH EYE Last administered on 10/31/17at 06:11; Start 10/19/17 at 06:00 Bisacodyl (Dulcolax Supp) 10 mg DAILY PRN RECTAL SEVERE CONSITIPATION; Start at 02:30 Calcium Chloride (Calcium Chloride Inj) 1 gm ONCE IV PUSH ; Start 10/19/17 at 16 :15; Stop 10/19/17 at 17:00; Status DC Calcium Gluconate (Calcium Gluconate Inj) 1 gm ONCE ONCE IV PUSH ; Start at 01:45; Stop 10/19/17 at 01:46; Status DC Carvedilol (Coreg) 3.125 mg Q12HR PO Last administered on 10/30/17at 21:54; Start 10/25/17 at 09:45 Cefepime HCl 2000 mg/Sodium Chloride 100 ml @ 200 mls/hr Q12H IV Last administered on 10/30/17at 21:54; Start 10/25/17 at 09:00 Ceftriaxone Sodium 1000 mg/ Sodium Chloride 100 ml @ 200 mls/hr ONCE ONCE IV Last administered on 10/18/17at 23:34; Start 10/18/17 at 23:30; Stop 10/19/17 at 00:03; Status DC Chlorhexidine Gluconate (Chlorhexidine 2% Cloth) 3 pack UNSCH PRN TOP HYGIENIC CARE; Start 10/19/17 at 02:30 Chlorhexidine Gluconate (Peridex 0.12% Liq) 15 ml BID@08,20 MT Last administered on 10/30/17at 08:00; Start 10/19/17 at 08:00 Chlorothiazide Sodium (Diuril Inj) 500 mg ONCE ONCE IV Last administered on at 13:17; Start 10/25/17 at 10:45; Stop 10/25/17 at 10:55; Status DC Cyproheptadine HCl (Periactin Liq) 4 mg ONCE ONCE PO ; Start 10/18/17 at 23:00 ; Stop 10/18/17 at 23:01; Status DC Dextrose (D50w (Vial) Inj) 50 ml UNSCH PRN IV PUSH HYPOGLYCEMIA-SEE COMMENTS; Start 10/24/17 at 21:00 Diatrizoate Meglum/ Diatrizoate Sod ( Gastroview Liq) 18 ml ONCE ONCE PO Last administered on 10/27/17at 20:02; Start 10/27/17 at 17:10; Stop 10/27/17 at 17:37; Status DC Enoxaparin Sodium (Lovenox Inj) 40 mg Q24H SQ Last administered on 10/30/17at 09 :31; Start 10/26/17 at 08:00 Etomidate (Amidate Inj) 10 mg ONCE ONCE IV PUSH Last administered on at 02:58; Start 10/19/17 at 03:00; Stop 10/19/17 at 03:03; Status DC Fentanyl Citrate 250 ml @ 5 mls/hr TITRATE PRN IV SEDATION Last administered on 10/24/17at 01:34; Start 10/23/17 at 18:00; Stop 10/24/17 at 17:39; Status DC Furosemide (Lasix Inj) 40 mg ONCE ONCE IV PUSH Last administered on 10/26/17at 12:38; Start 10/26/17 at 08:00; Stop 10/26/17 at 08:07; Status DC Glucagon (Glucagon Inj) 1 mg UNSCH PRN OTHER HYPOGLYCEMIA-SEE COMMENTS; Start 10/24/17 at 21:00 Hydralazine HCl (Apresoline) 50 mg Q8HR PO Last administered on 10/31/17at 06:11 ; Start 10/27/17 at 22:00 Insulin Aspart (NovoLOG SUPPLEMENTAL SCALE) 1 ACHS SLIDING SCALE SQ Last administered on 10/30/17at 21:55; Start 10/27/17 at 17:00 Insulin Detemir (Levemir Inj) 5 units Q12HR SQ Last administered on 10/30/17at 21:55; Start 10/25/17 at 10:00 Insulin Human Regular 100 ml @ 0 mls/hr ONCE ONCE IV Last administered on 10/19at 00:00; Start 10/18/17 at 23:30; Stop 10/18/17 at 23:39; Status DC Insulin Human Regular (NovoLIN R INJ) 10 units ONCE ONCE IV PUSH Last administered on 10/18/17at 23:34; Start 10/18/17 at 23:30; Stop 10/18/17 at 23:31 ; Status DC Insulin Human Regular 100 units/ Sodium Chloride 100 ml @ 2 mls/hr TITRATE PRN IV Blood Glucose Control Last administered on 10/23/17at 04:08; Start 10/20/17 at 01:45; Stop 10/24/17 at 20:50; Status DC Ketorolac Tromethamine (Toradol Inj) 30 mg ONCE ONCE IV PUSH Last administered on 10/18/17at 23:00; Start 10/18/17 at 23:00; Stop 10/18/17 at 23:01 ; Status DC Lactated Ringer's 1,000 ml @ 150 mls/hr Q6H40M IV Last administered on at 09:09; Start 10/21/17 at 14:00; Stop 10/22/17 at 10:58; Status DC Lactulose (Lactulose Liq) 30 ml DAILY PRN PO SEVERE CONSITIPATION; Start at 21:30; Status Future Hold Lorazepam (Ativan Inj) 1 mg ONCE ONCE IV PUSH Last administered on 10/19/17at 00:35; Start 10/19/17 at 00:15; Stop 10/19/17 at 00:16; Status DC Magnesium Hydroxide (Milk Of Magnesia Liq) 30 ml Q12H PRN PO Mild constipation ; Start 10/19/17 at 02:30; Status Future Hold Magnesium Oxide (Mag-Ox) 800 mg UNSCH PRN PO For Magnesium 1.2 - 1.6 mg/dL; Start 10/27/17 at 05:15; Stop 10/28/17 at 07:50; Status DC Magnesium Sulfate 2 gm/Sodium Chloride 100 ml @ 50 mls/hr UNSCH PRN IV For Magnesium 1.2 - 1.6 mg/dL; Start 10/27/17 at 05:15; Stop 10/28/17 at 07:50; Status DC Magnesium Sulfate 4 gm/Sodium Chloride 100 ml @ 50 mls/hr UNSCH PRN IV For Magnesium 0.9 - 1.1 mg/dL; Start 10/27/17 at 05:15; Stop 10/28/17 at 07:50; Status DC Metronidazole (Flagyl) 500 mg Q8HR PO Last administered on 10/31/17at 06:11; Start 10/29/17 at 14:00 Midazolam HCl (Versed Inj) 4 mg NOW ONCE IV Last administered on 10/23/17at 15: 20; Start 10/23/17 at 15:15; Stop 10/23/17 at 15:16; Status DC Miscellaneous Information 1 ONCE ONCE OTHER Last administered on 10/19/17at 23: 30; Start 10/19/17 at 23:30; Stop 10/19/17 at 23:31; Status DC Miscellaneous Information ([facility]) 1 [id number] Last administered on 10/19/17at 02:30; Start 10/19/17 at 02:30 Morphine Sulfate (Morphine Inj) 2 mg Q2H PRN IV PUSH PAIN SCALE 6 TO 10 Last administered on 10/25/17 06:26; Start 10/19/17 at 02:30; Stop 10/25/17 at 09:33 ; Status DC Norepinephrine Bitartrate 4 mg/ Sodium Chloride 250 ml @ 7.5 mls/hr TITRATE PRN IV Blood pressure management Last administered on 10/20/17at 06:30; Start at 03:30; Stop 10/23/17 at 08:34; Status DC Nystatin (Mycostatin Powder) 1 applic Q12HR TOPICAL Last administered on at 21:56; Start 10/27/17 at 21:00 Ondansetron HCl (Zofran Odt) 4 mg Q6H PRN PO NAUSEA OR VOMITING Last administered on 10/29/17at 23:44; Start 10/19/17 at 02:30 Ondansetron HCl (Zofran Inj) 4 mg Q6H PRN IV PUSH NAUSEA OR VOMITING; Start at 02:30; Stop 10/19/17 at 02:30; Status DC Pantoprazole Sodium (Protonix Inj) 40 mg BID IV PUSH Last administered on at 08:37; Start 10/19/17 at 09:00; Stop 10/27/17 at 16:20; Status DC Pantoprazole Sodium (Protonix) 40 mg Q12HR PO Last administered on 10/30/17at 21 :54; Start 10/27/17 at 21:00 Pharmacy Profile Note 0 ml @ 0 mls/hr UNSCH OTHER ; Start 10/19/17 at 04:00; Stop 10/21/17 at 16:48; Status DC Phenylephrine HCl 40 mg/Dextrose 500 ml @ 30 mls/hr TITRATE PRN IV Blood Pressure Management Last administered on 10/20/17at 01:55; Start 10/19/17 at 07: 45; Stop 10/21/17 at 16:48; Status DC Potassium Chloride 40 meq/ Sodium Chloride 520 ml @ 130 mls/hr ONCE ONCE IV- CENTRAL Last administered on 10/20/17at 13:49; Start 10/20/17 at 13:00; Stop at 16:59; Status DC Potassium Chloride 40 meq/ Sodium Chloride 38.5 meq/Sterile Water 1,029.625 ml @ 150 mls/hr Q6H52M IV Last administered on 10/19/17at 10:27; Start 10/19/17 at 02:45; Stop 10/19/17 at 14:22; Status DC Potassium Chloride/Sodium Chloride 1,000 ml @ 125 mls/hr Q8H IV Last administered on 10/19/17at 00:36; Start 10/19/17 at 00:15; Stop 10/19/17 at 02:29 ; Status DC Potassium Phosphate (K-Phos) 2,000 mg UNSCH PRN PO/TUBE SEE LABEL COMMENTS; Start 10/27/17 at 05:15; Stop 10/28/17 at 07:50; Status DC Potassium Phosphate 30 mmol/ Sodium Chloride 260 ml @ 42 mls/hr UNSCH PRN IV SEE LABEL COMMENTS; Start 10/27/17 at 05:15; Stop 10/28/17 at 07:50; Status DC Potassium Bicarb/ Potassium Chloride (K-Lyte Cl Eff) 50 meq UNSCH PRN PO For Potassium 3.3 - 3.5 mEq/L; Start 10/27/17 at 05:15; Stop 10/28/17 at 07:50; Status DC Potassium Chloride (KCl) 40 meq ONCE ONCE PO Last administered on 10/30/17at 15 :30; Start 10/30/17 at 14:00; Stop 10/30/17 at 14:05; Status DC Propofol 100 ml @ 3.24 mls/hr TITRATE PRN IV SEDATION; Start 10/19/17 at 03:00 ; Stop 10/23/17 at 08:34; Status DC Senna/Docusate Sodium (Candace-Colace) 1 tab BID PO Last administered on at 20:33; Start 10/19/17 at 09:00; Stop 10/27/17 at 16:20; Status DC Sennosides (Senokot) 17.2 mg Q12H PRN PO Moderate constipation; Start 10/19/17 at 02:30; Status Future Hold Sodium Bicarbonate 100 meq/Potassium Chloride 60 meq/ Sterile Water 1,000 ml @ 150 mls/hr Q6H40M IV ; Start 10/19/17 at 15:00; Stop 10/19/17 at 15:08; Status DC Sodium Bicarbonate 100 meq/Sterile Water 1,000 ml @ 150 mls/hr Q6H40M IV Last administered on 10/20/17at 12:17; Start 10/20/17 at 16:00; Stop 10/20/17 at 16:00 ; Status DC Sodium Bicarbonate 150 meq/Potassium Chloride 80 meq/ Sterile Water 1,040 ml @ 150 mls/hr Q6H56M IV Last administered on 10/19/17at 14:00; Start 10/19/17 at 14 :00; Stop 10/19/17 at 14:22; Status DC Sodium Bicarbonate (Sodium Bicarbonate 8.4% Inj) 100 meq ONCE ONCE IV PUSH Last administered on 10/19/17at 23:24; Start 10/19/17 at 22:00; Stop 10/19/17 at 22:34; Status DC Sodium Chloride (NS Flush) 2 ml BID IV FLUSH Last administered on 10/30/17at 21: 54; Start 10/19/17 at 09:00 Sodium Chloride 38.5 meq/Sterile Water 1,009.625 ml @ 50 mls/hr [id number] IV Last administered on 10/25/17at 21:42; Start 10/22/17 at 14:00; Stop 10/26/17 at 14:23; Status DC Sodium Phosphate 30 mmol/Sodium Chloride 250 ml @ 42 mls/hr UNSCH PRN IV For Phosphorus < 2.5 mg/dL Last administered on 10/27/17at 11:32; Start 10/27/17 at 05:15; Stop 10/28/17 at 07:50; Status DC Succinylcholine Chloride (Quelicin Inj) 100 mg ONCE ONCE IV PUSH Last administered on 10/19/17at 02:59; Start 10/19/17 at 03:00; Stop 10/19/17 at 03:03 ; Status DC Terbutaline Sulfate (Brethine Inj) 1 mg UNSCH PRN SQ FOR EXTRAVASATION PROTOCOL ; Start 10/19/17 at 07:45 Tramadol HCl (Ultram) 50 mg Q8H PRN PO PAIN 5-10 Last administered on at 09:31; Start 10/29/17 at 13:15 Vancomycin HCl 1000 mg/Sodium Chloride 250 ml @ 250 mls/hr ONCE ONCE IV Last administered on 10/30/17at 15:33; Start 10/30/17 at 09:45; Stop 10/30/17 at 10:44 ; Status DC Vancomycin HCl 1500 mg/Sodium Chloride 515 ml @ 257.5 mls/ hr ONCE ONCE IV Last administered on 10/19/17at 05:28; Start 10/19/17 at 05:00; Stop 10/19/17 at 06:59; Status DC Vancomycin HCl 2000 mg/Sodium Chloride 520 ml @ 257.5 mls/ hr ONCE ONCE IV Last administered on 10/21/17at 14:15; Start 10/21/17 at 14:00; Stop 10/21/17 at 16:01; Status DC Vasopressin 40 units/Dextrose 100 ml @ 1.5 mls/hr TITRATE PRN IV Blood Pressure Management Last administered on 10/20/17at 15:58; Start 10/19/17 at 07: 45; Stop 10/21/17 at 16:48; Status DC Water (Free Water) 400 ml Q4HR G-TUBE Last administered on 10/24/17at 12:00; Start 10/24/17 at 12:00; Stop 10/24/17 at 17:39; Status DC Date of Insertion: October 19, 2017 A/P Problem List: (1) Acute respiratory failure ICD Code: J96.00 - Acute respiratory failure, unspecified whether with hypoxia or hypercapnia (2) Acute encephalopathy ICD Code: G93.40 - Encephalopathy, unspecified Status: Acute (3) Normocytic anemia ICD Code: D64.9 - Anemia, unspecified (4) Lactic acidosis ICD Code: E87.2 - Acidosis Status: Acute (5) Hypoalbuminemia ICD Code: E88.09 - Other disorders of plasma-protein metabolism, not elsewhere classified (6) Hypophosphatemia ICD Code: E83.39 - Other disorders of phosphorus metabolism Status: Acute (7) Hypokalemia ICD Code: E87.6 - Hypokalemia Status: Acute (8) Hypermagnesemia ICD Code: E83.41 - Hypermagnesemia (9) Acute kidney injury ICD Code: N17.9 - Acute kidney failure, unspecified Status: Acute (10) Leukocytosis ICD Code: D72.829 - Elevated white blood cell count, unspecified Status: Acute (11) Hyponatremia ICD Code: E87.1 - Hypo-osmolality and hyponatremia Status: Acute (12) Hypertension ICD Code: I10 - Essential (primary) hypertension (13) Pyrexia ICD Code: R50.9 - Fever, unspecified Status: Acute (14) Depression ICD Code: F32.9 - Major depressive disorder, single episode, unspecified (15) Ketoacidosis due to secondary diabetes ICD Code: E13.10 - Other specified diabetes mellitus with ketoacidosis without coma Status: Acute (16) BMI 37.0-37.9, adult ICD Code: Z68.37 - Body mass index (BMI) 37.0-37.9, adult Status: Acute Assessment and Plan A/P Acute toxic metabolic encephalopathy Depression/anxiety -CT head negative, MRI brain negative. LP showed xanthochromia, HSV negative 10/19 EEG-moderate to severe encephalopathy. Holding Quetiapine 100 mg daily, divalproex 250 mg daily and buspirone 10 mg p.o. 3 times daily/home medication along with hydroxyzine 10 mg p.o. 3 times daily Patient did receive cyproheptadine 4 mg 1 for possible serotonin syndrome by ED physician Holding buspirone 10 mg daily, divalproex 250 mg daily/check level and ketamine 100 mg p.o. daily. Neurology Dr. Solis has signed off, MRI within normal limits. Neurological exam stable. sepsis; source possible lung- multiple embolic lesions; need to r/o endocarditis; cardiology consulted and will have SHASHI today. continue Cefepime- initial blood cultures negative- ID following. Hypertension; continue Norvasc, Coreg,and hydralazine. Acute hypoxic and hypercarbic respiratory failure Extubated 10/24/2017, tolerating well, currently on nc o2. continue neb treatment. questionable upper GI bleed-continue Protonix for now. Diarrhea-C -diff negative. Acute hyperglycemic state Ketoacidosis -continue SSI and Levemir 5 U q12h, hemoglobin A1c 13. Acute kidney injury- resolving. Groin rash-could be fungal, start nystatin Leukocytosis Normocytic anemia- due to chronic disease/ sepsis? Thrombocytopenia- improving. -hematology consult appreciated. -stool for blood pending. -s/p PRBC transfusion with improved H/H. -continue to monitor. Hypokalemia Hypophosphatemia Hypermagnesemia Replace electrolytes as clinically indicated. PT evaluate and treat Prophylaxis GI -pantoprazole DVT -Lovenox Discharge Planning not ready for discharge. Problem Qualifiers (1) Acute respiratory failure: Qualified Codes: J96.01 - Acute respiratory failure with hypoxia; J96.02 - Acute respiratory failure with hypercapnia (2) Pyrexia: Qualified Codes: R50.9 - Fever, unspecified (3) Depression: Qualified Codes: F32.9 - Major depressive disorder, single episode, unspecified Frances Matamoros MD October 31, 2017 09:21
[2017-10-31] MEDS: CARVEDILOL 3.125 MG TAB PO SCH ×2 (11:16→23:13)
[2017-10-31] MEDS: CEFEPIME INJ 2,000 MG in SODIUM CHLORIDE 0.9% INJ 100 ML IV SCH (11:45)
--- NOTE | 2017-10-31 11:58 | HHI.IDPN ---
Subjective Subjective Remarks Patient is a 42-year-old male, brought into the hospital for evaluation of multiple symptoms. He apparently has been having problem with poor p.o. intake , and thirst and increasing fluid intake. There is also mention that he has had problem with nausea and vomiting and some confusion. The symptoms have been going on for about a month. Was brought into the emergency room, and he was found to have a blood sugar of 1800, creatinine was up to 3, sodium 21, and he has multiple abnormal electrolytes. He also had acidosis, and high fevers. His white count was elevated. In the ED he became more unresponsive, and he ended up getting intubated. He was initially on pressors. He was also found to have a very elevated CPK. His electrolytes stabilized, and his acidosis improved. Creatinine improved, and he has improvement in his urine output. He had 2 blood cultures done and those are negative. He was started on empiric antibiotics for possible aspiration. Initial urinalysis was unremarkable. Patient remains on the vent. His mental status still has not improved. Neurology has been consulted. Patient's temperatures seem to have improved. His chest x-ray showing bilateral pulmonary infiltrates and some nodular infiltrates. He has been getting vancomycin, cefepime, and Flagyl. His CPKs are still elevated, and his LFTs were also elevated. Patient also during his hospitalization had episode of V. tach and was resuscitated successfully. Infectious disease consultation has been requested to evaluate patient with high fevers. Notes reviewed Temps up to 101 overnight SHASHI done - appreciate cardiology assistance Per RN, ?small vegetation found BP ok C/O mild abdominal pain WBC decreasing CXR aishwarya infiltrates Not SOB No CP Echo report noted HIV negative Hepatitis negative Antibiotics Cefepime Current Medications Medications (Trade) Dose Ordered Sig/Jacky Route Start Time Stop Time Status Last Admin (NS Flush) 2 ml UNSCH PRN IV FLUSH 10/19/17 02:30 (NS Flush) 2 ml BID IV FLUSH 10/19/17 09:00 10/30/17 21:54 (Albuterol Neb) 2.5 mg Q2HR NEB PRN INH 10/19/17 02:30 10/24/17 08:36 [place] [place] 1 Q361D XX 10/19/17 02:30 10/19/17 02:30 (Chlorhexidine 2% Cloth) Taper DAILY@04 TOP 10/19/17 04:00 10/15/18 03:59 10/27/17 04:00 (Chlorhexidine 2% Cloth) 3 pack UNSCH PRN TOP 10/19/17 02:30 (Milk Of Magnesia Liq) 30 ml Q12H PRN PO 10/19/17 02:30 Future Hold (Senokot) 17.2 mg Q12H PRN PO 10/19/17 02:30 Future Hold (Dulcolax Supp) 10 mg DAILY PRN RECTAL 10/19/17 02:30 (Zofran Odt) 4 mg Q6H PRN PO 10/19/17 02:30 10/29/17 23:44 (Tears Naturale Opth Soln) 1 drop Q8HR EACH EYE 10/19/17 06:00 10/31/17 06:11 (Peridex 0.12% Liq) 15 ml BID@08,20 MT 10/19/17 08:00 10/30/17 08:00 Acetaminophen 100 ml @ 400 mls/hr Q8H PRN IV 10/19/17 03:30 10/27/17 00:49 (Glucagon Inj) 1 mg UNSCH PRN OTHER 10/19/17 04:15 (Brethine Inj) 1 mg UNSCH PRN SQ 10/19/17 07:45 (D50w (Vial) Inj) 50 ml UNSCH PRN IV PUSH 10/19/17 23:30 10/23/17 05:24 (Lactulose Liq) 30 ml DAILY PRN PO 10/23/17 21:30 Future Hold (D50w (Vial) Inj) 50 ml UNSCH PRN IV PUSH 10/24/17 21:00 (Glucagon Inj) 1 mg UNSCH PRN OTHER 10/24/17 21:00 Cefepime HCl 2000 mg/Sodium Chloride 100 ml @ 200 mls/hr Q12H IV 10/25/17 09:00 10/31/17 11:45 (Levemir Inj) 5 units Q12HR SQ 10/25/17 10:00 10/30/17 21:55 (Norvasc) 10 mg DAILY PO 10/26/17 09:00 10/31/17 11:16 (Coreg) 3.125 mg Q12HR PO 10/25/17 09:45 10/31/17 11:16 (Lovenox Inj) 40 mg Q24H SQ 10/26/17 08:00 10/30/17 09:31 (Protonix) 40 mg Q12HR PO 10/27/17 21:00 10/30/17 21:54 (Apresoline) 50 mg Q8HR PO 10/27/17 22:00 10/31/17 06:11 (NovoLOG SUPPLEMENTAL SCALE) 1 ACHS SLIDING SCALE SQ 10/27/17 17:00 10/30/17 21:55 (Mycostatin Powder) 1 applic Q12HR TOPICAL 10/27/17 21:00 10/30/17 21:56 (Flagyl) 500 mg Q8HR PO 10/29/17 14:00 10/31/17 06:11 (Ultram) 50 mg Q8H PRN PO 10/29/17 13:15 10/30/17 09:31 (KCl) 40 meq ONCE ONCE PO 10/31/17 13:00 10/31/17 13:01 10/31/17 11:16 (KCl) 40 meq ONCE ONCE PO 10/31/17 17:00 10/31/17 17:01 Lines PIV no evidence of infection Past Medical History Depression/anxiety Hypertension NSAID use Allergies: Coded Allergies: No Known Allergies (Unverified Allergy, Unknown, 10/18/17) Objective . Vital Signs Date Time Temp Pulse Resp B/P (MAP) Pulse Ox O2 Delivery O2 Flow Rate FiO2 10/31/17 08:00 Nasal Cannula 2.00 21 10/31/17 06:13 66 142/66 (91) 10/31/17 04:00 101.0 100 18 157/79 (105) 92 10/31/17 04:00 98 10/31/17 00:00 99.2 101 18 147/78 (101) 94 10/30/17 22:00 Nasal Cannula 2.00 21 10/30/17 20:00 99.2 97 18 140/75 (96) 92 10/30/17 20:00 101 10/30/17 18:03 Nasal Cannula 2.00 21 10/30/17 17:20 93 Nasal Cannula 2.00 10/30/17 15:57 97.9 95 20 129/69 (89) 93 10/30/17 12:00 98.4 99 20 130/73 (92) 93 . Laboratory Tests Test 10/30/17 06:03 10/31/17 05:42 White Blood Count 20.1 TH/MM3 18.9 TH/MM3 Red Blood Count 3.12 MIL/MM3 3.16 MIL/MM3 Hemoglobin 8.4 GM/DL 8.5 GM/DL Hematocrit 24.8 % 25.3 % Mean Corpuscular Volume 79.5 FL 79.8 FL Mean Corpuscular Hemoglobin 27.0 PG 26.9 PG Mean Corpuscular Hemoglobin Concent 34.0 % 33.7 % Red Cell Distribution Width 16.5 % 17.0 % Platelet Count 391 TH/MM3 444 TH/MM3 Mean Platelet Volume 9.6 FL 10.1 FL Erythrocyte Sedimentation Rate GREATER THAN 140 mm/hr Reticulocyte Count 6.8 % Absolute Reticulocyte Count 212.0 MIL/L Haptoglobin 269 MG/DL Laboratory Tests Test 10/30/17 06:03 10/31/17 05:42 Blood Urea Nitrogen 12 MG/DL 12 MG/DL Creatinine 1.10 MG/DL 1.03 MG/DL Random Glucose 152 MG/DL 146 MG/DL Calcium Level 7.5 MG/DL 8.0 MG/DL Sodium Level 143 MEQ/L 142 MEQ/L Potassium Level 3.0 MEQ/L 3.1 MEQ/L Chloride Level 107 MEQ/L 108 MEQ/L Carbon Dioxide Level 28.4 MEQ/L 25.0 MEQ/L Anion Gap 8 MEQ/L 9 MEQ/L Estimat Glomerular Filtration Rate 90 ML/MIN 97 ML/MIN Magnesium Level 1.4 MG/DL 1.4 MG/DL Iron Level 15 MCG/DL Total Iron Binding Capacity 168 MCG/DL Percent Iron Saturation 8.9 % Ferritin 1331 NG/ML Lactate Dehydrogenase 456 U/L Total Protein 5.8 GM/DL Folate 15.7 NG/ML Microbiology Date/Time Source Procedure Growth Status 10/28/17 17:50 Blood Peripheral Aerobic Blood Culture - Preliminary NO GROWTH IN 3 DAYS Resulted 10/28/17 17:50 Blood Peripheral Anaerobic Blood Culture - Preliminary NO GROWTH IN 3 DAYS Resulted 10/28/17 17:40 Blood Peripheral Aerobic Blood Culture - Preliminary NO GROWTH IN 3 DAYS Resulted 10/28/17 17:40 Blood Peripheral Anaerobic Blood Culture - Preliminary NO GROWTH IN 3 DAYS Resulted Imaging Last 72 hours Impressions Abdomen/Pelvis CT 10/27/17 0000 Signed Impressions: CONCLUSION: 1. No evidence of retroperitoneal hemorrhage. 2. Bibasilar subsegmental airspace disease and small bilateral effusions. 3. Patchy areas of hypodensity throughout the liver and spleen of uncertain et iology. Considering patient's history a septic vascular embolic process should be considered. 4. Minimal air in the urinary bladder. 5. Developing anasarca. Chest X-Ray 10/26/17599 Signed Impressions: CONCLUSION: Diffuse consolidation likely related to diffuse underlying processes such as ed aaron or diffuse inflammatory change. Last 72 hours Impressions Chest X-Ray 10/24/17599 Signed Impressions: CONCLUSION: No significant change. Bilateral pulmonary opacities remain. Head CT 10/24/17 Signed Impressions: CONCLUSION: 1. No acute intracranial abnormality. Gall Bladder Ultrasound 10/23/17 Signed Impressions: CONCLUSION: 1. There is increased echogenicity of the liver suggestive of fatty infiltrati on and/or hepatocellular disease. 2. No evidence of gallstones or biliary tract obstruction. Chest X-Ray 10/23/17 Signed Impressions: CONCLUSION: Scattered bilateral pulmonary infiltrates. Last Impressions Gall Bladder Ultrasound 10/23/17 Signed Impressions: CONCLUSION: Chest X-Ray 10/23/17 Signed Impressions: CONCLUSION: Scattered bilateral pulmonary infiltrates. Renal Ultrasound 10/19/17 Signed Impressions: Service Date/Time: Thursday, October 19, 2017 09:46 - CONCLUSION: Normal examination. Alexx Baig MD Physical Exam GENERAL: Awake and alert, NAD. SKIN: Cool and dry. No generalized rash. HEAD: Atraumatic. Normocephalic. No temporal wasting, or tenderness. EYES: [place] conjunctiva. No petechia or hemorrhage. Has dirty sclera. EARS, NOSE AND THROAT: Nose without bleeding or purulent nasal discharge. Moist mucosa NECK: Trachea midline. Supple and not tender, no meningeal signs CARDIOVASCULAR: Regular rate and rhythm. No murmurs, rubs or gallops heard RESPIRATORY: Decreased BS at bases ABDOMEN: Distended, mild tenderness, not guarding, bowel sounds present and hypoactive. EXTREMITIES: Warm, has pitting edema. Has embolic lesions tip of 3 fingers on his R hand NEUROLOGICAL: Grossly non-focal PSYCHIATRIC: Calm and cooperative LINE: No evidence of infection Assessment & Plan Remarks IMPRESSION Possible sepsis on initial presentation with fevers, dec LOC, MOSF - source possible lung, has aishwarya nodular infiltrates, BC negative, no sputum C/S Has multiple embolic lesions, source? - his BC have been negative - initial echo ok Endocarditis - C/S have been negative on admission - ?Culture negative endocarditis DM, DKA Elevated CPK Elevated LFTs Renal failure Acidosis, resolved Encephalopathy, ?metabolic, or [employer] etiology, resolved Leukocytosis, persistent, but decreasing Anemia Diarrhea, C Diff negative RECOMMENDATION Change Cefepime to Rocephin Continue Vancomycin I have asked micro to hold BC longer to see if any fastidious organism growing Also on Flagyl Heme evaluation Follow CBC Follow C/S Follow temps Monitor progress Explained plan to the patient D/W Haley Lang MD October 31, 2017 11:58
[2017-10-31] MEDS: PANTOPRAZOLE SOD 40 MG DELAYED RELEASE TAB PO SCH ×2 (11:59→23:13)
[2017-10-31] MEDS ORDERED: Vancomycin Consult Pharmacy 1 EA OTHER SCH (12:00)
--- NOTE | 2017-10-31 12:58 | PD.ONC.PN ---
Subjective Subjective Remarks T-max 101 overnight Patient reports he has pain in his abdomen and feet Had SHASHI this morning Reports poor appetite Feeling fatigued No bleeding Objective Data Date Time Temp Pulse Resp B/P (MAP) Pulse Ox O2 Delivery O2 Flow Rate FiO2 10/31/17 08:00 Nasal Cannula 2.00 21 10/31/17 06:13 66 142/66 (91) 10/31/17 04:00 101.0 100 18 157/79 (105) 92 10/31/17 04:00 98 10/31/17 00:00 99.2 101 18 147/78 (101) 94 10/30/17 22:00 Nasal Cannula 2.00 21 10/30/17 20:00 99.2 97 18 140/75 (96) 92 10/30/17 20:00 101 10/30/17 18:03 Nasal Cannula 2.00 21 10/30/17 17:20 93 Nasal Cannula 2.00 10/30/17 15:57 97.9 95 20 129/69 (89) 93 10/31/17 10/31/17 10/31/17 07:00 15:00 23:00 Output Total 2150 ml Balance -2150 ml Result Diagram: 10/31/17 0542 10/31/17 0542 Laboratory Results Laboratory Tests Test 10/31/17 05:42 White Blood Count 18.9 TH/MM3 Red Blood Count 3.16 MIL/MM3 Hemoglobin 8.5 GM/DL Hematocrit 25.3 % Mean Corpuscular Volume 79.8 FL Mean Corpuscular Hemoglobin 26.9 PG Mean Corpuscular Hemoglobin Concent 33.7 % Red Cell Distribution Width 17.0 % Platelet Count 444 TH/MM3 Mean Platelet Volume 10.1 FL Erythrocyte Sedimentation Rate GREATER THAN 140 mm/hr Reticulocyte Count 6.8 % Absolute Reticulocyte Count 212.0 MIL/L Haptoglobin 269 MG/DL Blood Urea Nitrogen 12 MG/DL Creatinine 1.03 MG/DL Random Glucose 146 MG/DL Calcium Level 8.0 MG/DL Sodium Level 142 MEQ/L Potassium Level 3.1 MEQ/L Chloride Level 108 MEQ/L Carbon Dioxide Level 25.0 MEQ/L Anion Gap 9 MEQ/L Estimat Glomerular Filtration Rate 97 ML/MIN Magnesium Level 1.4 MG/DL Lactate Dehydrogenase 456 U/L Total Protein 5.8 GM/DL Folate 15.7 NG/ML Culture Results Microbiology Date/Time Source Procedure Growth Status 10/28/17 17:50 Blood Peripheral Aerobic Blood Culture - Preliminary NO GROWTH IN 3 DAYS Resulted 10/28/17 17:50 Blood Peripheral Anaerobic Blood Culture - Preliminary NO GROWTH IN 3 DAYS Resulted 10/28/17 17:40 Blood Peripheral Aerobic Blood Culture - Preliminary NO GROWTH IN 3 DAYS Resulted 10/28/17 17:40 Blood Peripheral Anaerobic Blood Culture - Preliminary NO GROWTH IN 3 DAYS Resulted Administered Medications Medications (Trade) Dose Ordered Sig/Jacky Route PRN Reason Start Time Stop Time Status Last Admin Dose Admin Sodium Chloride (NS Flush) 2 ml BID IV FLUSH 10/19/17 09:00 10/30/17 21:54 Albuterol Sulfate (Albuterol Neb) 2.5 mg Q2HR NEB PRN INH SOB/WHEEZING 10/19/17 02:30 10/24/17 08:36 Miscellaneous Information ([facility] [place] Nursing Information) 1 Q361D XX 10/19/17 02:30 10/19/17 02:30 Chlorhexidine Gluconate (Chlorhexidine 2% Cloth) Taper DAILY@04 TOP 10/19/17 04:00 10/15/18 03:59 10/27/17 04:00 Ondansetron HCl (Zofran Odt) 4 mg Q6H PRN PO NAUSEA OR VOMITING 10/19/17 02:30 10/29/17 23:44 Artificial Tears (Tears Naturale Opth Soln) 1 drop Q8HR EACH EYE 10/19/17 06:00 10/31/17 06:11 Chlorhexidine Gluconate (Peridex 0.12% Liq) 15 ml BID@08,20 MT 10/19/17 08:00 10/30/17 08:00 Acetaminophen 100 ml @ 400 mls/hr Q8H PRN IV fever 10/19/17 03:30 10/27/17 00:49 Dextrose (D50w (Vial) Inj) 50 ml UNSCH PRN IV PUSH SEE LABEL COMMENTS 10/19/17 23:30 10/23/17 05:24 Insulin Detemir (Levemir Inj) 5 units Q12HR SQ 10/25/17 10:00 10/30/17 21:55 Amlodipine Besylate (Norvasc) 10 mg DAILY PO 10/26/17 09:00 10/31/17 11:16 Carvedilol (Coreg) 3.125 mg Q12HR PO 10/25/17 09:45 10/31/17 11:16 Enoxaparin Sodium (Lovenox Inj) 40 mg Q24H SQ 10/26/17 08:00 10/30/17 09:31 Pantoprazole Sodium (Protonix) 40 mg Q12HR PO 10/27/17 21:00 10/31/17 11:59 Hydralazine HCl (Apresoline) 50 mg Q8HR PO 10/27/17 22:00 10/31/17 06:11 Insulin Aspart (NovoLOG SUPPLEMENTAL SCALE) 1 ACHS SLIDING SCALE SQ 10/27/17 17:00 10/31/17 12:24 Nystatin (Mycostatin Powder) 1 applic Q12HR TOPICAL 10/27/17 21:00 10/30/17 21:56 Metronidazole (Flagyl) 500 mg Q8HR PO 10/29/17 14:00 10/31/17 06:11 Tramadol HCl (Ultram) 50 mg Q8H PRN PO PAIN 5-10 10/29/17 13:15 10/30/17 09:31 Potassium Chloride (KCl) 40 meq ONCE ONCE PO 10/31/17 13:00 10/31/17 13:01 10/31/17 11:16 Objective Remarks GENERAL: Younger male resting in bed asleep on approach. He wakens easily to verbal stimuli. SKIN: Warm and dry. HEAD: Normocephalic. EYES: No injection or drainage. NECK: Supple, trachea midline. No JVD or lymphadenopathy. CARDIOVASCULAR: Regular rate and rhythm without murmurs. RESPIRATORY: Breath sounds equal bilaterally. No accessory muscle use. GASTROINTESTINAL: Abdomen soft, non-tender, nondistended. EXTREMITIES: No cyanosis, or edema. SCDs to bilateral lower extremities. MUSCULOSKELETAL: Adequate muscle tone. NEUROLOGICAL: Awakens easily. Normal speech. Assessment/Plan Problem List: (1) Microcytic anemia ICD Codes: D50.9 - Iron deficiency anemia, unspecified Plan: --Likely multifactorial due to sepsis. his hemoglobin trended down to 6.6 this admission. Lately his hemoglobin has been stable at 8.4. --Iron studies were done after patient received blood transfusions of this is difficult to interpret. --No sign of hemolysis (2) Sepsis ICD Codes: A41.9 - Sepsis, unspecified organism Plan: --Patient had SHASHI earlier this morning --ID following --Blood cultures have been negative so far Assessment 42 y/o male admitted with DKA and sepsis; hematology consulted for anemia Plan 1. Transfuse for hemoglobin less than 7 2. Check stool for occult blood 3. Hemoglobin electrophoresis pending 4. Monitor CBC Attending Statement The exam, history, and the medical decision-making described in the above note were completed with the assistance of the mid-level provider. I reviewed and agree with the findings presented. I attest that I had a [id number] encounter with the patient on the same day, and personally performed and documented my assessment and findings in the medical record. He had fever overnight. He is feeling little tired. He is awaiting SHASHI. Hemoglobin stable at 8.5. No obvious bleeding noted. Anemia workup ongoing. Judy Peoples October 31, 2017 12:58 Presley Lux MD October 31, 2017 15:41
[2017-10-31] MEDS ORDERED: POTASSIUM CHLORIDE 20 MEQ CONTROLLED RELEASE TAB PO ONE ×2 (13:00→17:00)
[2017-10-31] MEDS: cefTRIAXone INJ 2,000 MG in SODIUM CHLORIDE 0.9% INJ 100 ML IV SCH (13:31)
[2017-10-31] MEDS: NYSTATIN 100,000 U/GM PWD 15 GM BTL TOPICAL SCH ×2 (13:32→23:14)
[2017-10-31] MEDS ORDERED: MAGNESIUM SULFATE 1 GM PREMIX 100 ML IV ONE (15:00)
--- NOTE | 2017-10-31 15:49 | PD.CARD.PN ---
Subjective Subjective Remarks No events overnight Seen after SHASHI Small vegetation noted on aortic valve Objective Medications Current Medications Medications (Trade) Dose Ordered Sig/Jacky Route Start Time Stop Time Status Last Admin (NS Flush) 2 ml UNSCH PRN IV FLUSH 10/19/17 02:30 (NS Flush) 2 ml BID IV FLUSH 10/19/17 09:00 10/30/17 21:54 (Albuterol Neb) 2.5 mg Q2HR NEB PRN INH 10/19/17 02:30 10/24/17 08:36 ([facility] [place] Nursing Information) 1 Q361D XX 10/19/17 02:30 10/19/17 02:30 (Chlorhexidine 2% Cloth) Taper DAILY@04 TOP 10/19/17 04:00 10/15/18 03:59 10/27/17 04:00 (Chlorhexidine 2% Cloth) 3 pack UNSCH PRN TOP 10/19/17 02:30 (Milk Of Magnesia Liq) 30 ml Q12H PRN PO 10/19/17 02:30 Future Hold (Senokot) 17.2 mg Q12H PRN PO 10/19/17 02:30 Future Hold (Dulcolax Supp) 10 mg DAILY PRN RECTAL 10/19/17 02:30 (Zofran Odt) 4 mg Q6H PRN PO 10/19/17 02:30 10/29/17 23:44 (Tears Naturale Opth Soln) 1 drop Q8HR EACH EYE 10/19/17 06:00 10/31/17 13:32 (Peridex 0.12% Liq) 15 ml BID@08,20 MT 10/19/17 08:00 10/30/17 08:00 Acetaminophen 100 ml @ 400 mls/hr Q8H PRN IV 10/19/17 03:30 10/27/17 00:49 (Brethine Inj) 1 mg UNSCH PRN SQ 10/19/17 07:45 (Lactulose Liq) 30 ml DAILY PRN PO 10/23/17 21:30 Future Hold (D50w (Vial) Inj) 50 ml UNSCH PRN IV PUSH 10/24/17 21:00 (Glucagon Inj) 1 mg UNSCH PRN OTHER 10/24/17 21:00 (Levemir Inj) 5 units Q12HR SQ 10/25/17 10:00 10/30/17 21:55 (Norvasc) 10 mg DAILY PO 10/26/17 09:00 10/31/17 11:16 (Coreg) 3.125 mg Q12HR PO 10/25/17 09:45 10/31/17 11:16 (Lovenox Inj) 40 mg Q24H SQ 10/26/17 08:00 10/30/17 09:31 (Protonix) 40 mg Q12HR PO 10/27/17 21:00 10/31/17 11:59 (Apresoline) 50 mg Q8HR PO 10/27/17 22:00 10/31/17 13:32 (NovoLOG SUPPLEMENTAL SCALE) 1 ACHS SLIDING SCALE SQ 10/27/17 17:00 10/31/17 12:24 (Mycostatin Powder) 1 applic Q12HR TOPICAL 10/27/17 21:00 10/31/17 13:32 (Flagyl) 500 mg Q8HR PO 10/29/17 14:00 10/31/17 13:32 (Ultram) 50 mg Q8H PRN PO 10/29/17 13:15 10/30/17 09:31 (KCl) 40 meq ONCE ONCE PO 10/31/17 17:00 10/31/17 17:01 Pharmacy Profile Note 0 ml @ 0 mls/hr UNSCH OTHER 10/31/17 12:00 Ceftriaxone Sodium 2000 mg/ Sodium Chloride 100 ml @ 200 mls/hr Q24H IV 10/31/17 13:00 10/31/17 13:31 Vancomycin HCl 1500 mg/Sodium Chloride 515 ml @ 257.5 mls/ hr Q12H IV 10/31/17 15:00 ([facility] [place] [facility] Ordered Lab Info) SPECIFIC LAB TO BE HECTOR... ONCE ONCE .XX 11/01/17 14:45 11/01/17 14:46 Magnesium Sulfate/ Dextrose 100 ml @ 100 mls/hr ONCE ONCE IV 10/31/17 15:00 10/31/17 15:59 10/31/17 15:29 Vital Signs / I&O Vital Signs Date Time Temp Pulse Resp B/P (MAP) Pulse Ox O2 Delivery O2 Flow Rate FiO2 10/31/17 13:48 97 Nasal Cannula 3.00 10/31/17 13:41 96 10/31/17 12:00 99.5 112 18 134/79 (97) 92 10/31/17 08:00 99.3 108 18 140/66 (90) 91 10/31/17 08:00 Nasal Cannula 2.00 21 10/31/17 06:13 66 142/66 (91) 10/31/17 04:00 101.0 100 18 157/79 (105) 92 10/31/17 04:00 98 10/31/17 00:00 99.2 101 18 147/78 (101) 94 10/30/17 22:00 Nasal Cannula 2.00 21 10/30/17 20:00 99.2 97 18 140/75 (96) 92 10/30/17 20:00 101 10/30/17 18:03 Nasal Cannula 2.00 21 10/30/17 17:20 93 Nasal Cannula 2.00 10/30/17 15:57 97.9 95 20 129/69 (89) 93 I/O 10/30/17 10/30/17 10/30/17 10/31/17 10/31/17 10/31/17 07:00 15:00 23:00 07:00 15:00 23:00 Intake Total 222 ml 240 ml 820 ml Output Total 1900 ml 500 ml 1200 ml 2150 ml 2 ml Balance -1678 ml -260 ml -380 ml -2150 ml -2 ml Intake Oral 222 ml 240 ml 720 ml IV Total 100 ml Output Urine Total 1900 ml 500 ml 1200 ml 2150 ml Stool Total 2 ml # Bowel Movements 1 Physical Exam GENERAL: NAD, AAOx3 SKIN: Warm and dry. HEAD: Atraumatic. Normocephalic. EYES: Pupils equal and round. No scleral icterus. No injection or drainage. ENT: No nasal bleeding or discharge. Mucous membranes pink and moist. NECK: Trachea midline. No JVD. CARDIOVASCULAR: Regular rate and rhythm. RESPIRATORY: No accessory muscle use. Clear to auscultation. Breath sounds equal bilaterally. GASTROINTESTINAL: Abdomen soft, non-tender, nondistended. Hepatic and splenic margins not palpable. MUSCULOSKELETAL: Extremities without clubbing, cyanosis, or edema. No obvious deformities. NEUROLOGICAL: Awake and alert. No obvious cranial nerve deficits. Motor grossly within normal limits. Five out of 5 muscle strength in the arms and legs. Normal speech. PSYCHIATRIC: Appropriate mood and affect; insight and judgment normal. Laboratory Laboratory Tests Test 10/31/17 05:42 White Blood Count 18.9 TH/MM3 Red Blood Count 3.16 MIL/MM3 Hemoglobin 8.5 GM/DL Hematocrit 25.3 % Mean Corpuscular Volume 79.8 FL Mean Corpuscular Hemoglobin 26.9 PG Mean Corpuscular Hemoglobin Concent 33.7 % Red Cell Distribution Width 17.0 % Platelet Count 444 TH/MM3 Mean Platelet Volume 10.1 FL Erythrocyte Sedimentation Rate GREATER THAN 140 mm/hr Reticulocyte Count 6.8 % Absolute Reticulocyte Count 212.0 MIL/L Haptoglobin 269 MG/DL Blood Urea Nitrogen 12 MG/DL Creatinine 1.03 MG/DL Random Glucose 146 MG/DL Calcium Level 8.0 MG/DL Sodium Level 142 MEQ/L Potassium Level 3.1 MEQ/L Chloride Level 108 MEQ/L Carbon Dioxide Level 25.0 MEQ/L Anion Gap 9 MEQ/L Estimat Glomerular Filtration Rate 97 ML/MIN Magnesium Level 1.4 MG/DL Lactate Dehydrogenase 456 U/L Total Protein 5.8 GM/DL Folate 15.7 NG/ML Assessment and Plan Problem List: (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
[2017-10-31] MEDS: VANCOMYCIN INJ 1,500 MG in SODIUM CHLORID 0.9% 500 ML INJ 500 ML IV SCH (16:25)
[2017-10-31 19:51] LABS: CALIFORNIA ENCEPH AB IGG <1:4 (<1:4); CALIFORNIA ENCEPH AB IGM <1:4 (<1:4); EAST EQUINE ENCEPH AB IGG <1:4 (<1:4); EAST EQUINE ENCEPH AB IGM <1:4 (<1:4); ST LOUIS ENCEPH AB IGG <1:4 (<1:4); ST LOUIS ENCEPH AB IGM <1:4 (<1:4); WEST EQUINE ENCEPH AB IGG <1:4 (<1:4); WEST EQUINE ENCEPH AB IGM <1:4 (<1:4)
[2017-10-31] MEDS: traMADol HCL 50 MG TAB PO PRN (23:13)
[2017-10-31] MEDS: SODIUM CHLORIDE 0.9% FLUSH 10 ML FLUSH IV FLUSH SCH ×2 (23:15→23:21)
--- NOTE | 2017-10-31 23:56 | ECHRPT ---
Indication: R/O CARDIOEMBOLIC PROCESS CONCLUSIONS The left ventricular systolic function is normal with an estimated ejection fraction in the range of 60-65%. Trace mitral valve regurgitation. Trace aortic valve regurgitation. There is a mobile structure with extra-cardiac movement consistent with a vegetation. It is located on the non-coronary cusp, and measures 0.7cm x 0.8cm. BP: / HR: Rhythm: Sinus Technical Quality:Excellent Medications Complications Proc. Components Anesthesia at bedside for sedation. FINDINGS LEFT VENTRICLE Normal left ventricular size. The left ventricular systolic function is normal with an estimated ejection fraction in the range of 60-65%. No regional wall motion abnormalities are present. RIGHT VENTRICLE The right ventricular size is normal. LEFT ATRIUM The left atrial size is normal. RIGHT ATRIUM The right atrial size is normal. ATRIAL APPENDAGES Normal left atrial appendage size with no evidence of thrombus formation. The velocities in the left atrial appendage are normal. ATRIAL SEPTUM Normal atrial septal thickness. No atrial level shunt is demonstrated by color flow Doppler or agitated saline imaging. AORTA Descending aorta with no dissection noted MITRAL VALVE Structurally normal mitral valve. Trace mitral valve regurgitation. No mitral valve stenosis. AORTIC VALVE Trileaflet aortic valve. No aortic valve stenosis. Trace aortic valve regurgitation. There is a mobile structure with extra-cardiac movement consistent with a vegetation. It is located on the non-coronary cusp, and measures 0.7cm x 0.8cm. TRICUSPID VALVE Structurally normal tricuspid valve. No tricuspid valve stenosis or regurgitation. VESSELS No pulmonary valve regurgitation or stenosis. Conor Herndon DO (Electronically Signed) Final Date:31 Oct 2017 23:54
[2017-11-01] VITALS (8 sets, daily range): BP systolic 142–164; BP diastolic 84–96; PULSE 99–109; RESP 14–22; TEMP 98.3–100; O2SAT 91–93
[2017-11-01] MEDS: CHLORHEXIDINE GLUCONATE 2 % 1 PACK (2 CLOTHS) TOP SCH (03:10)
[2017-11-01] MEDS: VANCOMYCIN INJ 1,500 MG in SODIUM CHLORID 0.9% 500 ML INJ 500 ML IV SCH ×2 (03:10→15:31)
[2017-11-01] MEDS: metroNIDAZOLE 500 MG TAB PO SCH (05:08)
[2017-11-01] MEDS: ARTIFICIAL TEARS OPTH SOLN 15 ML BTL EACH EYE SCH ×3 (05:08→21:32)
[2017-11-01] MEDS: hydrALAZINE HCL 50 MG TAB PO SCH ×3 (05:08→21:16)
[2017-11-01 06:20] LABS: AUTOMATED NEUTROPHIL # 13.6 TH/MM3 (1.8-7.7); BASOPHIL # 0.3 TH/MM3 (0-0.2); BASOPHIL % 1.5 % (0.0-2.0); EOSINOPHIL # 0.4 TH/MM3 (0-0.4); EOSINOPHIL % 1.9 % (0.0-4.0); HEMATOCRIT 25.4 % (39.0-51.0); HEMOGLOBIN 8.5 GM/DL (13.0-17.0); LYMPH % 13.2 % (9.0-44.0); LYMPHOCYTE # 2.4 TH/MM3 (1.0-4.8); MEAN CELL VOLUME 78.9 FL (80.0-100.0); MEAN CORPUSCULAR HEMOGLOBIN 26.3 PG (27.0-34.0); MEAN CORPUSCULAR HGB CONC 33.4 % (32.0-36.0); MEAN PLATELET VOLUME 9.6 FL (7.0-11.0); MONO % 8.9 % (0.0-8.0); MONOCYTE # 1.6 TH/MM3 (0-0.9); NEUT % 74.5 % (16.0-70.0); PLATELET COUNT 495 TH/MM3 (150-450); RED BLOOD COUNT 3.22 MIL/MM3 (4.50-5.90); RED CELL DISTRIBUTION WIDTH 16.6 % (11.6-17.2); WHITE BLOOD COUNT 18.3 TH/MM3 (4.0-11.0)
[2017-11-01 06:35] LABS: BICARBONATE 20.3 MEQ/L (21.0-32.0); CALCIUM 7.5 MG/DL (8.5-10.1); CREATININE 0.9 MG/DL (0.60-1.30)
[2017-11-01] MEDS: INSULIN ASPART SUPPLEMENTAL SCALE SQ SCH ×4 (08:00→21:31)
[2017-11-01] MEDS: ENOXAPARIN SODIUM 40 MG/0.4 ML SYRINGE SQ SCH (08:00)
[2017-11-01] MEDS: SODIUM CHLORIDE 0.9% FLUSH 10 ML FLUSH IV FLUSH SCH ×2 (09:00→21:31)
[2017-11-01] MEDS: NYSTATIN 100,000 U/GM PWD 15 GM BTL TOPICAL SCH ×2 (09:00→21:31)
[2017-11-01] MEDS: INSULIN DETEMIR 100 UNITS/ML VIAL SQ SCH ×2 (09:00→21:29)
--- NOTE | 2017-11-01 09:11 | HHI.IDPN ---
Subjective Subjective Remarks Patient is a 42-year-old male, brought into the hospital for evaluation of multiple symptoms. He apparently has been having problem with poor p.o. intake , and thirst and increasing fluid intake. There is also mention that he has had problem with nausea and vomiting and some confusion. The symptoms have been going on for about a month. Was brought into the emergency room, and he was found to have a blood sugar of 1800, creatinine was up to 3, sodium 21, and he has multiple abnormal electrolytes. He also had acidosis, and high fevers. His white count was elevated. In the ED he became more unresponsive, and he ended up getting intubated. He was initially on pressors. He was also found to have a very elevated CPK. His electrolytes stabilized, and his acidosis improved. Creatinine improved, and he has improvement in his urine output. He had 2 blood cultures done and those are negative. He was started on empiric antibiotics for possible aspiration. Initial urinalysis was unremarkable. Patient remains on the vent. His mental status still has not improved. Neurology has been consulted. Patient's temperatures seem to have improved. His chest x-ray showing bilateral pulmonary infiltrates and some nodular infiltrates. He has been getting vancomycin, cefepime, and Flagyl. His CPKs are still elevated, and his LFTs were also elevated. Patient also during his hospitalization had episode of V. tach and was resuscitated successfully. Infectious disease consultation has been requested to evaluate patient with high fevers. Notes reviewed Temps low grade overnight D/W Dr Herndon yesterday - has vegetation small in AV BP ok C/O mild abdominal pain WBC staying at 18K Hgb at 8.5 Last CXR 10/27 HIV negative Hepatitis negative Antibiotics Rocephin Vancomycin Current Medications Medications (Trade) Dose Ordered Sig/Jacky Route Start Time Stop Time Status Last Admin (NS Flush) 2 ml UNSCH PRN IV FLUSH 10/19/17 02:30 (NS Flush) 2 ml BID IV FLUSH 10/19/17 09:00 10/31/17 23:21 (Albuterol Neb) 2.5 mg Q2HR NEB PRN INH 10/19/17 02:30 10/24/17 08:36 ([facility] [place] Nursing Information) 1 Q361D XX 10/19/17 02:30 10/19/17 02:30 (Chlorhexidine 2% Cloth) Taper DAILY@04 TOP 10/19/17 04:00 10/15/18 03:59 10/27/17 04:00 (Chlorhexidine 2% Cloth) 3 pack UNSCH PRN TOP 10/19/17 02:30 (Milk Of Magnesia Liq) 30 ml Q12H PRN PO 10/19/17 02:30 Future Hold (Senokot) 17.2 mg Q12H PRN PO 10/19/17 02:30 Future Hold (Dulcolax Supp) 10 mg DAILY PRN RECTAL 10/19/17 02:30 (Zofran Odt) 4 mg Q6H PRN PO 10/19/17 02:30 10/29/17 23:44 (Tears Naturale Opth Soln) 1 drop Q8HR EACH EYE 10/19/17 06:00 10/31/17 13:32 (Peridex 0.12% Liq) 15 ml BID@08,20 MT 10/19/17 08:00 10/30/17 08:00 Acetaminophen 100 ml @ 400 mls/hr Q8H PRN IV 10/19/17 03:30 10/27/17 00:49 (Brethine Inj) 1 mg UNSCH PRN SQ 10/19/17 07:45 (Lactulose Liq) 30 ml DAILY PRN PO 10/23/17 21:30 Future Hold (D50w (Vial) Inj) 50 ml UNSCH PRN IV PUSH 10/24/17 21:00 (Glucagon Inj) 1 mg UNSCH PRN OTHER 10/24/17 21:00 (Levemir Inj) 5 units Q12HR SQ 10/25/17 10:00 10/31/17 23:15 (Norvasc) 10 mg DAILY PO 10/26/17 09:00 10/31/17 11:16 (Coreg) 3.125 mg Q12HR PO 10/25/17 09:45 10/31/17 23:13 (Lovenox Inj) 40 mg Q24H SQ 10/26/17 08:00 10/30/17 09:31 (Protonix) 40 mg Q12HR PO 10/27/17 21:00 10/31/17 23:13 (Apresoline) 50 mg Q8HR PO 10/27/17 22:00 11/01/17 05:08 (NovoLOG SUPPLEMENTAL SCALE) 1 ACHS SLIDING SCALE SQ 10/27/17 17:00 10/31/17 23:16 (Mycostatin Powder) 1 applic Q12HR TOPICAL 10/27/17 21:00 10/31/17 23:14 (Flagyl) 500 mg Q8HR PO 10/29/17 14:00 11/01/17 05:08 (Ultram) 50 mg Q8H PRN PO 10/29/17 13:15 10/31/17 23:13 Pharmacy Profile Note 0 ml @ 0 mls/hr UNSCH OTHER 10/31/17 12:00 Ceftriaxone Sodium 2000 mg/ Sodium Chloride 100 ml @ 200 mls/hr Q24H IV 10/31/17 13:00 10/31/17 13:31 Vancomycin HCl 1500 mg/Sodium Chloride 515 ml @ 257.5 mls/ hr Q12H IV 10/31/17 15:00 11/01/17 03:10 ([facility] [place] [facility] Ordered Lab Info) SPECIFIC LAB TO BE HECTOR... ONCE ONCE .XX 11/01/17 14:45 11/01/17 14:46 Lines PIV no evidence of infection Past Medical History Depression/anxiety Hypertension NSAID use Allergies: Coded Allergies: No Known Allergies (Unverified Allergy, Unknown, 10/18/17) Objective . Vital Signs Date Time Temp Pulse Resp B/P (MAP) Pulse Ox O2 Delivery O2 Flow Rate FiO2 11/01/17 08:11 99.6 109 17 148/86 (106) 92 11/01/17 04:00 99.2 104 22 164/94 (117) 91 11/01/17 04:00 Nasal Cannula 2.00 11/01/17 04:00 103 11/01/17 00:00 101 11/01/17 00:00 Nasal Cannula 2.00 11/01/17 00:00 100.0 104 14 153/86 (108) 93 10/31/17 22:08 95 Nasal Cannula 3.00 10/31/17 20:41 100.1 100 16 152/98 (116) 95 10/31/17 20:00 Nasal Cannula 2.00 10/31/17 20:00 101 10/31/17 16:00 99.4 101 18 154/89 (110) 93 10/31/17 13:48 97 Nasal Cannula 3.00 10/31/17 13:41 96 10/31/17 12:00 99.5 112 18 134/79 (97) 92 . Laboratory Tests Test 10/31/17 05:42 11/01/17 05:55 White Blood Count 18.9 TH/MM3 18.3 TH/MM3 Red Blood Count 3.16 MIL/MM3 3.22 MIL/MM3 Hemoglobin 8.5 GM/DL 8.5 GM/DL Hematocrit 25.3 % 25.4 % Mean Corpuscular Volume 79.8 FL 78.9 FL Mean Corpuscular Hemoglobin 26.9 PG 26.3 PG Mean Corpuscular Hemoglobin Concent 33.7 % 33.4 % Red Cell Distribution Width 17.0 % 16.6 % Platelet Count 444 TH/MM3 495 TH/MM3 Mean Platelet Volume 10.1 FL 9.6 FL Erythrocyte Sedimentation Rate GREATER THAN 140 mm/hr Reticulocyte Count 6.8 % Absolute Reticulocyte Count 212.0 MIL/L Haptoglobin 269 MG/DL Neutrophils (%) (Auto) 74.5 % Lymphocytes (%) (Auto) 13.2 % Monocytes (%) (Auto) 8.9 % Eosinophils (%) (Auto) 1.9 % Basophils (%) (Auto) 1.5 % Neutrophils # (Auto) 13.6 TH/MM3 Lymphocytes # (Auto) 2.4 TH/MM3 Monocytes # (Auto) 1.6 TH/MM3 Eosinophils # (Auto) 0.4 TH/MM3 Basophils # (Auto) 0.3 TH/MM3 CBC Comment DIFF FINAL Differential Comment Laboratory Tests Test 10/31/17 05:42 11/01/17 05:55 Blood Urea Nitrogen 12 MG/DL 9 MG/DL Creatinine 1.03 MG/DL 0.90 MG/DL Random Glucose 146 MG/DL 121 MG/DL Calcium Level 8.0 MG/DL 7.5 MG/DL Sodium Level 142 MEQ/L 142 MEQ/L Potassium Level 3.1 MEQ/L 3.0 MEQ/L Chloride Level 108 MEQ/L 108 MEQ/L Carbon Dioxide Level 25.0 MEQ/L 20.3 MEQ/L Anion Gap 9 MEQ/L 14 MEQ/L Estimat Glomerular Filtration Rate 97 ML/MIN 113 ML/MIN Magnesium Level 1.4 MG/DL Lactate Dehydrogenase 456 U/L Total Protein 5.8 GM/DL Folate 15.7 NG/ML Microbiology Date/Time Source Procedure Growth Status 10/31/17 13:28 Blood Peripheral Aerobic Blood Culture Pending Received 10/31/17 13:28 Blood Peripheral Anaerobic Blood Culture Pending Received 10/31/17 13:20 Blood Peripheral Aerobic Blood Culture Pending Received 10/31/17 13:20 Blood Peripheral Anaerobic Blood Culture Pending Received Imaging Last 72 hours Impressions Abdomen/Pelvis CT 10/27/17 Signed Impressions: CONCLUSION: 1. No evidence of retroperitoneal hemorrhage. 2. Bibasilar subsegmental airspace disease and small bilateral effusions. 3. Patchy areas of hypodensity throughout the liver and spleen of uncertain et iology. Considering patient's history a septic vascular embolic process should be considered. 4. Minimal air in the urinary bladder. 5. Developing anasarca. Chest X-Ray 10/26/17599 Signed Impressions: CONCLUSION: Diffuse consolidation likely related to diffuse underlying processes such as ed aaron or diffuse inflammatory change. Last 72 hours Impressions Chest X-Ray 10/24/17599 Signed Impressions: CONCLUSION: No significant change. Bilateral pulmonary opacities remain. Head CT 10/24/17 Signed Impressions: CONCLUSION: 1. No acute intracranial abnormality. Gall Bladder Ultrasound 10/23/17 Signed Impressions: CONCLUSION: 1. There is increased echogenicity of the liver suggestive of fatty infiltrati on and/or hepatocellular disease. 2. No evidence of gallstones or biliary tract obstruction. Chest X-Ray 10/23/17 Signed Impressions: CONCLUSION: Scattered bilateral pulmonary infiltrates. Last Impressions Gall Bladder Ultrasound 10/23/17 Signed Impressions: CONCLUSION: Chest X-Ray 10/23/17 Signed Impressions: CONCLUSION: Scattered bilateral pulmonary infiltrates. Renal Ultrasound 10/19/17 Signed Impressions: Service Date/Time: Thursday, October 19, 2017 09:46 - CONCLUSION: Normal examination. Alexx Baig MD Physical Exam GENERAL: Awake and alert, NAD. SKIN: Cool and dry. No generalized rash. HEAD: Atraumatic. Normocephalic. No temporal wasting, or tenderness. EYES: [place] conjunctiva. No petechia or hemorrhage. Has dirty sclera. EARS, NOSE AND THROAT: Nose without bleeding or purulent nasal discharge. Moist mucosa NECK: Trachea midline. Supple and not tender, no meningeal signs CARDIOVASCULAR: Regular rate and rhythm. No murmurs, rubs or gallops heard RESPIRATORY: Decreased BS at bases ABDOMEN: Distended, mild tenderness, not guarding, bowel sounds present and hypoactive. EXTREMITIES: Warm, has pitting edema. Has embolic lesions tip of 3 fingers on his R hand NEUROLOGICAL: Grossly non-focal PSYCHIATRIC: Calm and cooperative LINE: No evidence of infection Assessment & Plan Remarks IMPRESSION Possible sepsis on initial presentation with fevers, dec LOC, MOSF - better - source possible lung, has aishwarya nodular infiltrates, BC negative, no sputum C/S Has multiple embolic lesions, source? - his BC have been negative - initial echo ok Endocarditis - C/S have been negative on admission - ?Culture negative endocarditis DM, DKA Elevated CPK Elevated LFTs Renal failure Acidosis, resolved Encephalopathy, ?metabolic, or [employer] etiology, resolved Leukocytosis, persistent, but decreasing Anemia Diarrhea, C Diff negative RECOMMENDATION Continue Rocephin Continue Vancomycin I have asked micro to hold BC longer to see if any fastidious organism growing Check Q fever and Bartonella serology Stop Flagyl Follow CBC Follow C/S Repeat CXR Follow temps Monitor progress Explained plan to the patient Haley Sanchez MD November 01, 2017 09:11
[2017-11-01] MEDS: PANTOPRAZOLE SOD 40 MG DELAYED RELEASE TAB PO SCH ×2 (09:15→21:16)
[2017-11-01] MEDS: CARVEDILOL 3.125 MG TAB PO SCH ×2 (09:15→21:16)
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
--- NOTE | 2017-11-01 12:12 | PD.ONC.PN ---
Subjective Subjective Remarks Tmax 100.1 overnight. Patient resting in room with friend at bedside. no complaints. Objective Data Date Time Temp Pulse Resp B/P (MAP) Pulse Ox O2 Delivery O2 Flow Rate FiO2 11/01/17 08:11 99.6 109 17 148/86 (106) 92 11/01/17 04:00 99.2 104 22 164/94 (117) 91 11/01/17 04:00 Nasal Cannula 2.00 11/01/17 04:00 103 11/01/17 00:00 101 11/01/17 00:00 Nasal Cannula 2.00 11/01/17 00:00 100.0 104 14 153/86 (108) 93 10/31/17 22:08 95 Nasal Cannula 3.00 10/31/17 20:41 100.1 100 16 152/98 (116) 95 10/31/17 20:00 Nasal Cannula 2.00 10/31/17 20:00 101 10/31/17 16:00 99.4 101 18 154/89 (110) 93 10/31/17 13:48 97 Nasal Cannula 3.00 10/31/17 13:41 96 11/01/17 11/01/17 11/01/17 07:00 15:00 23:00 Intake Total 515 ml Balance 515 ml Result Diagram: 11/01/17 0555 11/01/17 0555 Laboratory Results Laboratory Tests Test 11/01/17 05:55 11/01/17 11:40 White Blood Count 18.3 TH/MM3 Red Blood Count 3.22 MIL/MM3 Hemoglobin 8.5 GM/DL Hematocrit 25.4 % Mean Corpuscular Volume 78.9 FL Mean Corpuscular Hemoglobin 26.3 PG Mean Corpuscular Hemoglobin Concent 33.4 % Red Cell Distribution Width 16.6 % Platelet Count 495 TH/MM3 Mean Platelet Volume 9.6 FL Neutrophils (%) (Auto) 74.5 % Lymphocytes (%) (Auto) 13.2 % Monocytes (%) (Auto) 8.9 % Eosinophils (%) (Auto) 1.9 % Basophils (%) (Auto) 1.5 % Neutrophils # (Auto) 13.6 TH/MM3 Lymphocytes # (Auto) 2.4 TH/MM3 Monocytes # (Auto) 1.6 TH/MM3 Eosinophils # (Auto) 0.4 TH/MM3 Basophils # (Auto) 0.3 TH/MM3 CBC Comment DIFF FINAL Differential Comment Blood Urea Nitrogen 9 MG/DL Creatinine 0.90 MG/DL Random Glucose 121 MG/DL Calcium Level 7.5 MG/DL Sodium Level 142 MEQ/L Potassium Level 3.0 MEQ/L Chloride Level 108 MEQ/L Carbon Dioxide Level 20.3 MEQ/L Anion Gap 14 MEQ/L Estimat Glomerular Filtration Rate 113 ML/MIN Culture Results Microbiology Date/Time Source Procedure Growth Status 10/31/17 13:28 Blood Peripheral Aerobic Blood Culture - Preliminary NO GROWTH IN 1 DAY Resulted 10/31/17 13:28 Blood Peripheral Anaerobic Blood Culture - Preliminary NO GROWTH IN 1 DAY Resulted 10/31/17 13:20 Blood Peripheral Aerobic Blood Culture - Preliminary NO GROWTH IN 1 DAY Resulted 10/31/17 13:20 Blood Peripheral Anaerobic Blood Culture - Preliminary NO GROWTH IN 1 DAY Resulted Imaging Studies Last 24 hours Impressions Chest X-Ray 11/01/17 0000 Signed Impressions: CONCLUSION: Diffuse bilateral patchy airspace disease again seen Administered Medications Medications (Trade) Dose Ordered Sig/Ajcky Route PRN Reason Start Time Stop Time Status Last Admin Dose Admin Sodium Chloride (NS Flush) 2 ml BID IV FLUSH 10/19/17 09:00 10/31/17 23:21 Albuterol Sulfate (Albuterol Neb) 2.5 mg Q2HR NEB PRN INH SOB/WHEEZING 10/19/17 02:30 10/24/17 08:36 Miscellaneous Information ([facility] [place] Nursing Information) 1 Q361D XX 10/19/17 02:30 10/19/17 02:30 Chlorhexidine Gluconate (Chlorhexidine 2% Cloth) Taper DAILY@04 TOP 10/19/17 04:00 10/15/18 03:59 10/27/17 04:00 Ondansetron HCl (Zofran Odt) 4 mg Q6H PRN PO NAUSEA OR VOMITING 10/19/17 02:30 10/29/17 23:44 Artificial Tears (Tears Naturale Opth Soln) 1 drop Q8HR EACH EYE 10/19/17 06:00 10/31/17 13:32 Chlorhexidine Gluconate (Peridex 0.12% Liq) 15 ml BID@08,20 MT 10/19/17 08:00 10/30/17 08:00 Acetaminophen 100 ml @ 400 mls/hr Q8H PRN IV fever 10/19/17 03:30 10/27/17 00:49 Insulin Detemir (Levemir Inj) 5 units Q12HR SQ 10/25/17 10:00 11/01/17 09:00 Amlodipine Besylate (Norvasc) 10 mg DAILY PO 10/26/17 09:00 11/01/17 09:15 Carvedilol (Coreg) 3.125 mg Q12HR PO 10/25/17 09:45 11/01/17 09:15 Enoxaparin Sodium (Lovenox Inj) 40 mg Q24H SQ 10/26/17 08:00 11/01/17 08:00 Pantoprazole Sodium (Protonix) 40 mg Q12HR PO 10/27/17 21:00 11/01/17 09:15 Hydralazine HCl (Apresoline) 50 mg Q8HR PO 10/27/17 22:00 11/01/17 05:08 Insulin Aspart (NovoLOG SUPPLEMENTAL SCALE) 1 ACHS SLIDING SCALE SQ 10/27/17 17:00 10/31/17 23:16 Nystatin (Mycostatin Powder) 1 applic Q12HR TOPICAL 10/27/17 21:00 11/01/17 09:00 Tramadol HCl (Ultram) 50 mg Q8H PRN PO PAIN 5-10 10/29/17 13:15 10/31/17 23:13 Ceftriaxone Sodium 2000 mg/ Sodium Chloride 100 ml @ 200 mls/hr Q24H IV 10/31/17 13:00 10/31/17 13:31 Vancomycin HCl 1500 mg/Sodium Chloride 515 ml @ 257.5 mls/ hr Q12H IV 10/31/17 15:00 11/01/17 03:10 Objective Remarks GENERAL: Middle aged male, sitting up in bed in [facility]. SKIN: Warm and dry. HEAD: Normocephalic. EYES: No injection or drainage. NECK: Supple, trachea midline. CARDIOVASCULAR: +S1/S2 RESPIRATORY: Breath sounds equal bilaterally. No accessory muscle use. GASTROINTESTINAL: Abdomen soft, non-tender, nondistended. EXTREMITIES: No cyanosis NEUROLOGICAL: No obvious focal deficit. Awake, alert, and oriented x3. Assessment/Plan Problem List: (1) Microcytic anemia ICD Codes: D50.9 - Iron deficiency anemia, unspecified Plan: --Likely multifactorial due to sepsis +inflammation --Iron studies were done after patient received blood transfusions--> difficult to interpret. --No sign of hemolysis --hemoglobin electrophoresis pending. (2) Sepsis ICD Codes: A41.9 - Sepsis, unspecified organism Plan: --SHASHI shows mitral valve regurgitation, aortic valve regurgitation and vegetation --ID following --Blood cultures have been negative so far Assessment 42 y/o male admitted with DKA and sepsis; hematology consulted for anemia Plan 1. await hemoglobin electrophoresis 2. monitor CBC 3. continue antibiotics Attending Statement The exam, history, and the medical decision-making described in the above note were completed with the assistance of the mid-level provider. I reviewed and agree with the findings presented. I attest that I had a [id number] encounter with the patient on the same day, and personally performed and documented my assessment and findings in the medical record. Still has fever. Hgb stable 8.5 No bleeding noted. Some labs still pending. Maria Del Rosario Brown November 01, 2017 12:12 Presley Lux MD November 01, 2017 15:27
[2017-11-01] MEDS: cefTRIAXone INJ 2,000 MG in SODIUM CHLORIDE 0.9% INJ 100 ML IV SCH (12:35)
[2017-11-01] MEDS: traMADol HCL 50 MG TAB PO PRN (12:42)
--- NOTE | 2017-11-01 13:23 | HHI.PR ---
Subjective Remarks Tmax 100.0 yesterday, still with leukocytosis at 18.3, still with RUQ and LUQ abdominal pain, stable, no cp or sob. TTE done yesterday. Objective Vitals Vital Signs Date Time Temp Pulse Resp B/P (MAP) Pulse Ox O2 Delivery O2 Flow Rate FiO2 11/01/17 12:11 99.6 99 18 150/84 (106) 93 11/01/17 08:11 99.6 109 17 148/86 (106) 92 11/01/17 04:00 99.2 104 22 164/94 (117) 91 11/01/17 04:00 Nasal Cannula 2.00 11/01/17 04:00 103 11/01/17 00:00 101 11/01/17 00:00 Nasal Cannula 2.00 11/01/17 00:00 100.0 104 14 153/86 (108) 93 10/31/17 22:08 95 Nasal Cannula 3.00 10/31/17 20:41 100.1 100 16 152/98 (116) 95 10/31/17 20:00 Nasal Cannula 2.00 10/31/17 20:00 101 10/31/17 16:00 99.4 101 18 154/89 (110) 93 10/31/17 13:48 97 Nasal Cannula 3.00 10/31/17 13:41 96 I/O 10/31/17 10/31/17 10/31/17 11/01/17 11/01/17 11/01/17 06:59 14:59 22:59 06:59 14:59 22:59 Intake Total 1510 ml 515 ml Output Total 2150 ml 2 ml Balance -2150 ml -2 ml 1510 ml 515 ml Intake Oral 960 ml IV Total 550 ml 515 ml Output Urine Total 2150 ml Stool Total 2 ml # Voids 2 # Bowel Movements 4 Result Diagram: 11/01/17 0555 11/01/17 0555 Objective Remarks GENERAL: In no apparent distress. CARDIOVASCULAR: Regular rate and regular rhythm , 2/6 EMILIANA RESPIRATORY: Clear to auscultation. Breath sounds equal bilaterally. No wheezes , rales, or rhonchi. GASTROINTESTINAL: Abdomen soft, non-tender, nondistended. Normal, active bowel sounds MUSCULOSKELETAL: blackish discoloration of the tip of the fingers; right 3rd/ 4th and 5th digits. NEURO: Alert & Oriented x4 to person, place, time, situation. Moves all ext x4 Date of Insertion: October 19, 2017 A/P Problem List: (1) Acute respiratory failure ICD Code: J96.00 - Acute respiratory failure, unspecified whether with hypoxia or hypercapnia (2) Acute encephalopathy ICD Code: G93.40 - Encephalopathy, unspecified Status: Acute (3) Normocytic anemia ICD Code: D64.9 - Anemia, unspecified (4) Lactic acidosis ICD Code: E87.2 - Acidosis Status: Acute (5) Hypoalbuminemia ICD Code: E88.09 - Other disorders of plasma-protein metabolism, not elsewhere classified (6) Hypophosphatemia ICD Code: E83.39 - Other disorders of phosphorus metabolism Status: Acute (7) Hypokalemia ICD Code: E87.6 - Hypokalemia Status: Acute (8) Hypermagnesemia ICD Code: E83.41 - Hypermagnesemia (9) Acute kidney injury ICD Code: N17.9 - Acute kidney failure, unspecified Status: Acute (10) Leukocytosis ICD Code: D72.829 - Elevated white blood cell count, unspecified Status: Acute (11) Hyponatremia ICD Code: E87.1 - Hypo-osmolality and hyponatremia Status: Acute (12) Hypertension ICD Code: I10 - Essential (primary) hypertension (13) Pyrexia ICD Code: R50.9 - Fever, unspecified Status: Acute (14) Depression ICD Code: F32.9 - Major depressive disorder, single episode, unspecified (15) Ketoacidosis due to secondary diabetes ICD Code: E13.10 - Other specified diabetes mellitus with ketoacidosis without coma Status: Acute (16) BMI 37.0-37.9, adult ICD Code: Z68.37 - Body mass index (BMI) 37.0-37.9, adult Status: Acute Assessment and Plan Acute toxic metabolic encephalopathy Depression/anxiety -CT head negative, MRI brain negative. LP showed xanthochromia, HSV negative, EEG-moderate to severe encephalopathy. Seroquel, divalproex, buspirone, hydroxyzine on hold. - Neurology Dr. Solis has signed off, MRI within normal limits. Neurological exam stable. Sepsis - source? endocarditis? - pt has multiple embolic lesions; need to r/o endocarditis; cardiology on board , status post transesophageal echocardiogram, showed aortic valve vegetation, 0.7 x 0.8 cm. Cont CTX and vancomycin, BCx negative, awaiting further (q-fever , Bartonella, etc.) work-up per ID. Ventricular tachycardia - likely secondary to electric abnormality per cardiology. Hypertension; continue Norvasc, Coreg,and hydralazine. Acute hypoxic and hypercarbic respiratory failure -Extubated 10/24/2017, tolerating well, currently on nc o2. questionable upper GI bleed-continue Protonix for now. Diarrhea-C -diff negative. Acute hyperglycemic state -continue SSI and Levemir 5 U q12h, hemoglobin A1c 13. Acute kidney injury- resolving. Groin rash-could be fungal, Cont nystatin Leukocytosis Normocytic anemia Thrombocytopenia -hematology consult appreciated. Likely from [place], s/p blood transfusion , f/u electrophoresis Hypokalemia Hypophosphatemia Hypermagnesemia -Replace electrolytes as clinically indicated. Replace K, Mg, recheck BMP and Ca tomorrow Prophylaxis GI -pantoprazole DVT -Lovenox Discharge Planning Not medically ready Problem Qualifiers (1) Acute respiratory failure: Qualified Codes: J96.01 - Acute respiratory failure with hypoxia; J96.02 - Acute respiratory failure with hypercapnia (2) Pyrexia: Qualified Codes: R50.9 - Fever, unspecified (3) Depression: Qualified Codes: F32.9 - Major depressive disorder, single episode, unspecified Angelina Roberto MD November 01, 2017 13:22
--- NOTE | 2017-11-01 13:29 | PD.CARD.PN ---
Subjective Subjective Remarks No events overnight SHASHI with small vegetation noted on aortic valve Objective Medications Current Medications Medications (Trade) Dose Ordered Sig/Jacky Route Start Time Stop Time Status Last Admin (NS Flush) 2 ml UNSCH PRN IV FLUSH 10/19/17 02:30 (NS Flush) 2 ml BID IV FLUSH 10/19/17 09:00 10/31/17 23:21 (Albuterol Neb) 2.5 mg Q2HR NEB PRN INH 10/19/17 02:30 10/24/17 08:36 ([facility] [place] [facility] 1 Q361D XX 10/19/17 02:30 10/19/17 02:30 (Chlorhexidine 2% Cloth) Taper DAILY@04 TOP 10/19/17 04:00 10/15/18 03:59 10/27/17 04:00 (Chlorhexidine 2% Cloth) 3 pack UNSCH PRN TOP 10/19/17 02:30 (Milk Of Magnesia Liq) 30 ml Q12H PRN PO 10/19/17 02:30 Future Hold (Senokot) 17.2 mg Q12H PRN PO 10/19/17 02:30 Future Hold (Dulcolax Supp) 10 mg DAILY PRN RECTAL 10/19/17 02:30 (Zofran Odt) 4 mg Q6H PRN PO 10/19/17 02:30 10/29/17 23:44 (Tears Naturale Opth Soln) 1 drop Q8HR EACH EYE 10/19/17 06:00 10/31/17 13:32 (Peridex 0.12% Liq) 15 ml BID@08,20 MT 10/19/17 08:00 10/30/17 08:00 Acetaminophen 100 ml @ 400 mls/hr Q8H PRN IV 10/19/17 03:30 10/27/17 00:49 (Brethine Inj) 1 mg UNSCH PRN SQ 10/19/17 07:45 (Lactulose Liq) 30 ml DAILY PRN PO 10/23/17 21:30 Future Hold (D50w (Vial) Inj) 50 ml UNSCH PRN IV PUSH 10/24/17 21:00 (Glucagon Inj) 1 mg UNSCH PRN OTHER 10/24/17 21:00 (Levemir Inj) 5 units Q12HR SQ 10/25/17 10:00 11/01/17 09:00 (Norvasc) 10 mg DAILY PO 10/26/17 09:00 11/01/17 09:15 (Coreg) 3.125 mg Q12HR PO 10/25/17 09:45 11/01/17 09:15 (Lovenox Inj) 40 mg Q24H SQ 10/26/17 08:00 11/01/17 08:00 (Protonix) 40 mg Q12HR PO 10/27/17 21:00 11/01/17 09:15 (Apresoline) 50 mg Q8HR PO 10/27/17 22:00 11/01/17 12:42 (NovoLOG SUPPLEMENTAL SCALE) 1 ACHS SLIDING SCALE SQ 10/27/17 17:00 10/31/17 23:16 (Mycostatin Powder) 1 applic Q12HR TOPICAL 10/27/17 21:00 11/01/17 09:00 (Ultram) 50 mg Q8H PRN PO 10/29/17 13:15 11/01/17 12:42 Pharmacy Profile Note 0 ml @ 0 mls/hr UNSCH OTHER 10/31/17 12:00 Ceftriaxone Sodium 2000 mg/ Sodium Chloride 100 ml @ 200 mls/hr Q24H IV 10/31/17 13:00 11/01/17 12:35 Vancomycin HCl 1500 mg/Sodium Chloride 515 ml @ 257.5 mls/ hr Q12H IV 10/31/17 15:00 11/01/17 03:10 ([facility] Ordered Lab Info) SPECIFIC LAB TO BE ... ONCE ONCE .XX 11/01/17 14:45 11/01/17 14:46 Vital Signs / I&O Vital Signs Date Time Temp Pulse Resp B/P (MAP) Pulse Ox O2 Delivery O2 Flow Rate FiO2 11/01/17 12:11 99.6 99 18 150/84 (106) 93 11/01/17 08:11 99.6 109 17 148/86 (106) 92 11/01/17 04:00 99.2 104 22 164/94 (117) 91 11/01/17 04:00 Nasal Cannula 2.00 11/01/17 04:00 103 11/01/17 00:00 101 11/01/17 00:00 Nasal Cannula 2.00 11/01/17 00:00 100.0 104 14 153/86 (108) 93 10/31/17 22:08 95 Nasal Cannula 3.00 10/31/17 20:41 100.1 100 16 152/98 (116) 95 10/31/17 20:00 Nasal Cannula 2.00 10/31/17 20:00 101 10/31/17 16:00 99.4 101 18 154/89 (110) 93 10/31/17 13:48 97 Nasal Cannula 3.00 10/31/17 13:41 96 I/O 10/31/17 10/31/17 10/31/17 11/01/17 11/01/17 11/01/17 07:00 15:00 23:00 07:00 15:00 23:00 Intake Total 1510 ml 515 ml Output Total 2150 ml 2 ml Balance -2150 ml -2 ml 1510 ml 515 ml Intake Oral 960 ml IV Total 550 ml 515 ml Output Urine Total 2150 ml Stool Total 2 ml # Voids 2 # Bowel Movements 4 Physical Exam GENERAL: NAD, AAOx3 SKIN: Warm and dry. HEAD: Atraumatic. Normocephalic. EYES: Pupils equal and round. No scleral icterus. No injection or drainage. ENT: No nasal bleeding or discharge. Mucous membranes pink and moist. NECK: Trachea midline. No JVD. CARDIOVASCULAR: Regular rate and rhythm. RESPIRATORY: No accessory muscle use. Clear to auscultation. Breath sounds equal bilaterally. GASTROINTESTINAL: Abdomen soft, non-tender, nondistended. Hepatic and splenic margins not palpable. MUSCULOSKELETAL: Extremities without clubbing, cyanosis, or edema. No obvious deformities. NEUROLOGICAL: Awake and alert. No obvious cranial nerve deficits. Motor grossly within normal limits. Five out of 5 muscle strength in the arms and legs. Normal speech. PSYCHIATRIC: Appropriate mood and affect; insight and judgment normal. Laboratory Laboratory Tests Test 11/01/17 05:55 11/01/17 11:40 White Blood Count 18.3 TH/MM3 Red Blood Count 3.22 MIL/MM3 Hemoglobin 8.5 GM/DL Hematocrit 25.4 % Mean Corpuscular Volume 78.9 FL Mean Corpuscular Hemoglobin 26.3 PG Mean Corpuscular Hemoglobin Concent 33.4 % Red Cell Distribution Width 16.6 % Platelet Count 495 TH/MM3 Mean Platelet Volume 9.6 FL Neutrophils (%) (Auto) 74.5 % Lymphocytes (%) (Auto) 13.2 % Monocytes (%) (Auto) 8.9 % Eosinophils (%) (Auto) 1.9 % Basophils (%) (Auto) 1.5 % Neutrophils # (Auto) 13.6 TH/MM3 Lymphocytes # (Auto) 2.4 TH/MM3 Monocytes # (Auto) 1.6 TH/MM3 Eosinophils # (Auto) 0.4 TH/MM3 Basophils # (Auto) 0.3 TH/MM3 CBC Comment DIFF FINAL Differential Comment Blood Urea Nitrogen 9 MG/DL Creatinine 0.90 MG/DL Random Glucose 121 MG/DL Calcium Level 7.5 MG/DL Sodium Level 142 MEQ/L Potassium Level 3.0 MEQ/L Chloride Level 108 MEQ/L Carbon Dioxide Level 20.3 MEQ/L Anion Gap 14 MEQ/L Estimat Glomerular Filtration Rate 113 ML/MIN Imaging Last 24 hours Impressions Chest X-Ray 11/01/17 0000 Signed Impressions: CONCLUSION: Diffuse bilateral patchy airspace disease again seen Assessment and Plan Problem List: (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
[2017-11-01] MEDS: POTASSIUM CHLORIDE 20 MEQ PWD PACKET PO SCH (14:30)
[2017-11-01] MEDS ORDERED: PHARMACY ORDERED LAB ONE (14:45)
[2017-11-01] MEDS ORDERED: MAGNESIUM SULFATE 1 GM PREMIX 100 ML IV SCH (15:00)
[2017-11-01] MEDS: MAGNESIUM SULFATE 1 GM PREMIX 100 ML IV SCH ×2 (18:36→21:15)
[2017-11-01] MEDS: CHLORHEXIDINE 0.12% (ORAL KIT) 15 ML CUP MT SCH (20:00)
[2017-11-01 22:22] LABS: ALB/GLOB RATIO (SPE) 0.65 (1.39-2.23)
[2017-11-01] MEDS: VANCOMYCIN INJ 1,150 MG in SODIUM CHLOR 0.9% 250 ML INJ 250 ML IV SCH (23:34)
[2017-11-02] VITALS (9 sets, daily range): BP systolic 126–163; BP diastolic 60–92; PULSE 97–112; RESP 18–20; TEMP 99.3–101.2; O2SAT 92–95
[2017-11-02] MEDS: POTASSIUM CHLORIDE 20 MEQ PWD PACKET PO SCH (01:04)
[2017-11-02] MEDS: CHLORHEXIDINE GLUCONATE 2 % 1 PACK (2 CLOTHS) TOP SCH (02:36)
[2017-11-02 04:55] LABS: HEMATOCRIT 23.4 % (39.0-51.0); MEAN CELL VOLUME 79.5 FL (80.0-100.0); MEAN CORPUSCULAR HEMOGLOBIN 27.1 PG (27.0-34.0); MEAN CORPUSCULAR HGB CONC 34.1 % (32.0-36.0); MEAN PLATELET VOLUME 9.1 FL (7.0-11.0); PLATELET COUNT 565 TH/MM3 (150-450); RED BLOOD COUNT 2.94 MIL/MM3 (4.50-5.90); RED CELL DISTRIBUTION WIDTH 16.8 % (11.6-17.2); WHITE BLOOD COUNT 15.9 TH/MM3 (4.0-11.0)
[2017-11-02] MEDS: hydrALAZINE HCL 50 MG TAB PO SCH ×3 (05:15→20:58)
[2017-11-02] MEDS: ARTIFICIAL TEARS OPTH SOLN 15 ML BTL EACH EYE SCH ×3 (05:15→21:09)
[2017-11-02 05:16] LABS: BICARBONATE 21.6 MEQ/L (21.0-32.0); CALCIUM 7.7 MG/DL (8.5-10.1); CREATININE 0.81 MG/DL (0.60-1.30); MAGNESIUM 1.6 MG/DL (1.5-2.5)
[2017-11-02] MEDS: INSULIN ASPART SUPPLEMENTAL SCALE SQ SCH ×4 (08:00→21:08)
[2017-11-02] MEDS: NYSTATIN 100,000 U/GM PWD 15 GM BTL TOPICAL SCH ×2 (09:00→21:09)
[2017-11-02] MEDS: PANTOPRAZOLE SOD 40 MG DELAYED RELEASE TAB PO SCH ×2 (09:21→20:57)
[2017-11-02] MEDS: INSULIN DETEMIR 100 UNITS/ML VIAL SQ SCH ×2 (09:21→21:08)
[2017-11-02] MEDS: VANCOMYCIN INJ 1,150 MG in SODIUM CHLOR 0.9% 250 ML INJ 250 ML IV SCH ×2 (09:21→16:43)
[2017-11-02] MEDS: CARVEDILOL 3.125 MG TAB PO SCH (09:21)
[2017-11-02] MEDS: ENOXAPARIN SODIUM 40 MG/0.4 ML SYRINGE SQ SCH (09:22)
[2017-11-02] MEDS: SODIUM CHLORIDE 0.9% FLUSH 10 ML FLUSH IV FLUSH SCH ×2 (09:22→20:58)
[2017-11-02] MEDS: traMADol HCL 50 MG TAB PO PRN ×2 (09:35→18:07)
--- NOTE | 2017-11-02 10:29 | PD.ONC.PN ---
Subjective Subjective Remarks Tmax 100.1 overnight. Patient feeling overall unwell today. no appetite. did not eat breakfast. Objective Data Date Time Temp Pulse Resp B/P (MAP) Pulse Ox O2 Delivery O2 Flow Rate FiO2 11/02/17 08:22 99.6 106 20 163/90 (114) 94 11/02/17 04:00 100 11/02/17 04:00 100.1 99 20 144/92 (109) 92 11/02/17 03:19 Nasal Cannula 2.00 11/02/17 00:15 99.5 100 20 149/91 (110) 92 11/02/17 00:00 104 11/02/17 00:00 Nasal Cannula 2.00 11/01/17 20:00 108 11/01/17 20:00 99.1 104 20 155/96 (115) 93 11/01/17 20:00 Nasal Cannula 2.00 11/01/17 17:47 92 Nasal Cannula 3.00 11/01/17 16:11 98.3 105 18 142/88 (106) 92 11/01/17 12:11 99.6 99 18 150/84 (106) 93 11/02/17 11/02/17 11/02/17 07:00 15:00 23:00 Intake Total 981.5 ml Output Total 2400 ml Balance -1418.5 ml Result Diagram: 11/02/17 0439 11/02/17 0439 Laboratory Results Laboratory Tests Test 11/01/17 11:40 11/01/17 14:10 11/02/17 04:39 Vancomycin Level Trough 9.8 MCG/ML White Blood Count 15.9 TH/MM3 Red Blood Count 2.94 MIL/MM3 Hemoglobin 8.0 GM/DL Hematocrit 23.4 % Mean Corpuscular Volume 79.5 FL Mean Corpuscular Hemoglobin 27.1 PG Mean Corpuscular Hemoglobin Concent 34.1 % Red Cell Distribution Width 16.8 % Platelet Count 565 TH/MM3 Mean Platelet Volume 9.1 FL Blood Urea Nitrogen 7 MG/DL Creatinine 0.81 MG/DL Random Glucose 114 MG/DL Calcium Level 7.7 MG/DL Magnesium Level 1.6 MG/DL Sodium Level 140 MEQ/L Potassium Level 3.4 MEQ/L Chloride Level 108 MEQ/L Carbon Dioxide Level 21.6 MEQ/L Anion Gap 10 MEQ/L Estimat Glomerular Filtration Rate 128 ML/MIN Culture Results Microbiology Date/Time Source Procedure Growth Status 10/31/17 13:28 Blood Peripheral Aerobic Blood Culture - Preliminary NO GROWTH IN 1 DAY Resulted 10/31/17 13:28 Blood Peripheral Anaerobic Blood Culture - Preliminary NO GROWTH IN 1 DAY Resulted 10/31/17 13:20 Blood Peripheral Aerobic Blood Culture - Preliminary NO GROWTH IN 1 DAY Resulted 10/31/17 13:20 Blood Peripheral Anaerobic Blood Culture - Preliminary NO GROWTH IN 1 DAY Resulted Administered Medications Medications (Trade) Dose Ordered Sig/Jacky Route PRN Reason Start Time Stop Time Status Last Admin Dose Admin Sodium Chloride (NS Flush) 2 ml BID IV FLUSH 10/19/17 09:00 11/02/17 09:22 Albuterol Sulfate (Albuterol Neb) 2.5 mg Q2HR NEB PRN INH SOB/WHEEZING 10/19/17 02:30 10/24/17 08:36 Miscellaneous Information ([facility] Information) 1 Q361D XX 10/19/17 02:30 10/19/17 02:30 Chlorhexidine Gluconate (Chlorhexidine 2% Cloth) Taper DAILY@04 TOP 10/19/17 04:00 10/15/18 03:59 10/27/17 04:00 Ondansetron HCl (Zofran Odt) 4 mg Q6H PRN PO NAUSEA OR VOMITING 10/19/17 02:30 10/29/17 23:44 Artificial Tears (Tears Naturale Opth Soln) 1 drop Q8HR EACH EYE 10/19/17 06:00 11/01/17 14:00 Chlorhexidine Gluconate (Peridex 0.12% Liq) 15 ml BID@08,20 MT 10/19/17 08:00 10/30/17 08:00 Acetaminophen 100 ml @ 400 mls/hr Q8H PRN IV fever 10/19/17 03:30 10/27/17 00:49 Insulin Detemir (Levemir Inj) 5 units Q12HR SQ 10/25/17 10:00 11/02/17 09:21 Amlodipine Besylate (Norvasc) 10 mg DAILY PO 10/26/17 09:00 11/02/17 09:21 Carvedilol (Coreg) 3.125 mg Q12HR PO 10/25/17 09:45 11/02/17 09:21 Enoxaparin Sodium (Lovenox Inj) 40 mg Q24H SQ 10/26/17 08:00 11/02/17 09:22 Pantoprazole Sodium (Protonix) 40 mg Q12HR PO 10/27/17 21:00 11/02/17 09:21 Hydralazine HCl (Apresoline) 50 mg Q8HR PO 10/27/17 22:00 11/02/17 05:15 Insulin Aspart (NovoLOG SUPPLEMENTAL SCALE) 1 ACHS SLIDING SCALE SQ 10/27/17 17:00 11/01/17 21:31 Nystatin (Mycostatin Powder) 1 applic Q12HR TOPICAL 10/27/17 21:00 11/02/17 09:00 Tramadol HCl (Ultram) 50 mg Q8H PRN PO PAIN 5-10 10/29/17 13:15 11/02/17 09:35 Ceftriaxone Sodium 2000 mg/ Sodium Chloride 100 ml @ 200 mls/hr Q24H IV 10/31/17 13:00 11/01/17 12:35 Vancomycin HCl 1150 mg/Sodium Chloride 261.5 ml @ 250 mls/hr Q8H IV 11/02/17 00:00 11/02/17 09:21 Objective Remarks GENERAL: Middle aged male, lying in bed. SKIN: Warm and dry. HEAD: Normocephalic. EYES: No injection or drainage. NECK: Supple, trachea midline. CARDIOVASCULAR: Regular rate and rhythm RESPIRATORY: Breath sounds equal bilaterally. No accessory muscle use. On 2L via NC GASTROINTESTINAL: Abdomen soft, non-tender, nondistended. EXTREMITIES: No cyanosis NEUROLOGICAL: awake, normal speech. moving extremities. Assessment/Plan Problem List: (1) Microcytic anemia ICD Codes: D50.9 - Iron deficiency anemia, unspecified Plan: --Likely multifactorial due to sepsis +inflammation --Iron studies were done after patient received blood transfusions--> difficult to interpret. --No sign of hemolysis --hemoglobin electrophoresis pending. (2) Sepsis ICD Codes: A41.9 - Sepsis, unspecified organism Plan: --SHASHI shows mitral valve regurgitation, aortic valve regurgitation and vegetation --ID following --Blood cultures have been negative so far Assessment 42 y/o male admitted with DKA and sepsis; hematology consulted for anemia Plan 1. monitor CBC 2. continue antibiotics per infectious disease 3. no transfusion today. d/w Dr. Carney, patient, Dr. Lux Attending Statement The exam, history, and the medical decision-making described in the above note were completed with the assistance of the mid-level provider. I reviewed and agree with the findings presented. I attest that I had a [id number] encounter with the patient on the same day, and personally performed and documented my assessment and findings in the medical record. Low grade fever. Hgb down to 8 but no new symptoms. No gross Gi bleed noted. No apparent hemolysis. Continue to monitor and transfuse PRBC if Hgb <7. Maria Del Rosario Brown Nov 02, 2017 10:29 Presley Lux MD Nov 02, 2017 15:22
[2017-11-02] MEDS: ACETAMINOPHEN 1000 MG/100 ML 100 ML IV PRN (10:54)
--- NOTE | 2017-11-02 11:42 | PD.CARD.PN ---
Subjective Subjective Remarks No events overnight SHASHI with small vegetation noted on aortic valve Blood pressure elevated Objective Medications Current Medications Medications (Trade) Dose Ordered Sig/Jacky Route Start Time Stop Time Status Last Admin (NS Flush) 2 ml UNSCH PRN IV FLUSH 10/19/17 02:30 (NS Flush) 2 ml BID IV FLUSH 10/19/17 09:00 11/02/17 09:22 (Albuterol Neb) 2.5 mg Q2HR NEB PRN INH 10/19/17 02:30 10/24/17 08:36 ([facility] [place] [facility] Information) 1 Q361D XX 10/19/17 02:30 10/19/17 02:30 (Chlorhexidine 2% Cloth) Taper DAILY@04 TOP 10/19/17 04:00 10/15/18 03:59 10/27/17 04:00 (Chlorhexidine 2% Cloth) 3 pack UNSCH PRN TOP 10/19/17 02:30 (Milk Of Magnesia Liq) 30 ml Q12H PRN PO 10/19/17 02:30 Future Hold (Senokot) 17.2 mg Q12H PRN PO 10/19/17 02:30 Future Hold (Dulcolax Supp) 10 mg DAILY PRN RECTAL 10/19/17 02:30 (Zofran Odt) 4 mg Q6H PRN PO 10/19/17 02:30 10/29/17 23:44 (Tears Naturale Opth Soln) 1 drop Q8HR EACH EYE 10/19/17 06:00 11/01/17 14:00 (Peridex 0.12% Liq) 15 ml BID@08,20 MT 10/19/17 08:00 10/30/17 08:00 Acetaminophen 100 ml @ 400 mls/hr Q8H PRN IV 10/19/17 03:30 11/02/17 10:54 (Brethine Inj) 1 mg UNSCH PRN SQ 10/19/17 07:45 (Lactulose Liq) 30 ml DAILY PRN PO 10/23/17 21:30 Future Hold (D50w (Vial) Inj) 50 ml UNSCH PRN IV PUSH 10/24/17 21:00 (Glucagon Inj) 1 mg UNSCH PRN OTHER 10/24/17 21:00 (Levemir Inj) 5 units Q12HR SQ 10/25/17 10:00 11/02/17 09:21 (Norvasc) 10 mg DAILY PO 10/26/17 09:00 11/02/17 09:21 (Coreg) 3.125 mg Q12HR PO 10/25/17 09:45 11/02/17 09:21 (Lovenox Inj) 40 mg Q24H SQ 10/26/17 08:00 11/02/17 09:22 (Protonix) 40 mg Q12HR PO 10/27/17 21:00 11/02/17 09:21 (Apresoline) 50 mg Q8HR PO 10/27/17 22:00 11/02/17 05:15 (NovoLOG SUPPLEMENTAL SCALE) 1 ACHS SLIDING SCALE SQ 10/27/17 17:00 11/01/17 21:31 (Mycostatin Powder) 1 applic Q12HR TOPICAL 10/27/17 21:00 11/02/17 09:00 (Ultram) 50 mg Q8H PRN PO 10/29/17 13:15 11/02/17 09:35 Pharmacy Profile Note 0 ml @ 0 mls/hr UNSCH OTHER 10/31/17 12:00 Ceftriaxone Sodium 2000 mg/ Sodium Chloride 100 ml @ 200 mls/hr Q24H IV 10/31/17 13:00 11/01/17 12:35 Vancomycin HCl 1150 mg/Sodium Chloride 261.5 ml @ 250 mls/hr Q8H IV 11/02/17 00:00 11/02/17 09:21 ([facility] [place] [facility] Ordered Lab Info) SPECIFIC LAB TO BE DRAWN: VANCO TROUGH DATE TO... ONCE ONCE .XX 11/02/17 15:45 11/02/17 15:46 Vital Signs / I&O Vital Signs Date Time Temp Pulse Resp B/P (MAP) Pulse Ox O2 Delivery O2 Flow Rate FiO2 11/02/17 08:22 99.6 106 20 163/90 (114) 94 11/02/17 04:00 100 11/02/17 04:00 100.1 99 20 144/92 (109) 92 11/02/17 03:19 Nasal Cannula 2.00 11/02/17 00:15 99.5 100 20 149/91 (110) 92 11/02/17 00:00 104 11/02/17 00:00 Nasal Cannula 2.00 11/01/17 20:00 108 11/01/17 20:00 99.1 104 20 155/96 (115) 93 11/01/17 20:00 Nasal Cannula 2.00 11/01/17 17:47 92 Nasal Cannula 3.00 11/01/17 16:11 98.3 105 18 142/88 (106) 92 11/01/17 12:11 99.6 99 18 150/84 (106) 93 I/O 11/01/17 11/01/17 11/01/17 11/02/17 11/02/17 11/02/17 07:00 15:00 23:00 07:00 15:00 23:00 Intake Total 515 ml 600 ml 981.5 ml Output Total 2100 ml 2400 ml Balance 515 ml -1500 ml -1418.5 ml Intake Oral 500 ml 720 ml IV Total 515 ml 100 ml 261.5 ml Output Urine Total 2100 ml 2400 ml # Bowel Movements 1 Physical Exam GENERAL: NAD, AAOx3 SKIN: Warm and dry. HEAD: Atraumatic. Normocephalic. EYES: Pupils equal and round. No scleral icterus. No injection or drainage. ENT: No nasal bleeding or discharge. Mucous membranes pink and moist. NECK: Trachea midline. No JVD. CARDIOVASCULAR: Regular rate and rhythm. RESPIRATORY: No accessory muscle use. Clear to auscultation. Breath sounds equal bilaterally. GASTROINTESTINAL: Abdomen soft, non-tender, nondistended. Hepatic and splenic margins not palpable. MUSCULOSKELETAL: Extremities without clubbing, cyanosis, or edema. No obvious deformities. NEUROLOGICAL: Awake and alert. No obvious cranial nerve deficits. Motor grossly within normal limits. Five out of 5 muscle strength in the arms and legs. Normal speech. PSYCHIATRIC: Appropriate mood and affect; insight and judgment normal. Laboratory Laboratory Tests Test 11/01/17 14:10 11/02/17 04:39 Vancomycin Level Trough 9.8 MCG/ML White Blood Count 15.9 TH/MM3 Red Blood Count 2.94 MIL/MM3 Hemoglobin 8.0 GM/DL Hematocrit 23.4 % Mean Corpuscular Volume 79.5 FL Mean Corpuscular Hemoglobin 27.1 PG Mean Corpuscular Hemoglobin Concent 34.1 % Red Cell Distribution Width 16.8 % Platelet Count 565 TH/MM3 Mean Platelet Volume 9.1 FL Blood Urea Nitrogen 7 MG/DL Creatinine 0.81 MG/DL Random Glucose 114 MG/DL Calcium Level 7.7 MG/DL Magnesium Level 1.6 MG/DL Sodium Level 140 MEQ/L Potassium Level 3.4 MEQ/L Chloride Level 108 MEQ/L Carbon Dioxide Level 21.6 MEQ/L Anion Gap 10 MEQ/L Estimat Glomerular Filtration Rate 128 ML/MIN Assessment and Plan Problem List: (1) 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 (2) Liver lesion ICD Codes: K76.9 - Liver disease, unspecified (3) Lesion of spleen ICD Codes: D73.9 - Disease of spleen, unspecified (4) Leukocytosis ICD Codes: D72.829 - Elevated white blood cell count, unspecified Status: Acute (5) Sepsis ICD Codes: A41.9 - Sepsis, unspecified organism Assessment and Plan 1) Question echodensities on CT scan in the liver and spleen 2) Vegetation noted on aortic valve, small 0.7cm x 0.8cm Possible culture-negative endocarditis ID working up 3) Ventricular tachycardia Most likely due to electrolyte abnormality 4) HTN Increased Coreg Can be titrated for further BP control Conor Herndon DO Nov 02, 2017 11:42
[2017-11-02] MEDS ORDERED: CARVEDILOL 3.125 MG TAB PO ONE (12:00)
--- NOTE | 2017-11-02 13:10 | HHI.IDPN ---
Subjective Subjective Remarks Patient is a 42-year-old male, brought into the hospital for evaluation of multiple symptoms. He apparently has been having problem with poor p.o. intake , and thirst and increasing fluid intake. There is also mention that he has had problem with nausea and vomiting and some confusion. The symptoms have been going on for about a month. Was brought into the emergency room, and he was found to have a blood sugar of 1800, creatinine was up to 3, sodium 21, and he has multiple abnormal electrolytes. He also had acidosis, and high fevers. His white count was elevated. In the ED he became more unresponsive, and he ended up getting intubated. He was initially on pressors. He was also found to have a very elevated CPK. His electrolytes stabilized, and his acidosis improved. Creatinine improved, and he has improvement in his urine output. He had 2 blood cultures done and those are negative. He was started on empiric antibiotics for possible aspiration. Initial urinalysis was unremarkable. Patient remains on the vent. His mental status still has not improved. Neurology has been consulted. Patient's temperatures seem to have improved. His chest x-ray showing bilateral pulmonary infiltrates and some nodular infiltrates. He has been getting vancomycin, cefepime, and Flagyl. His CPKs are still elevated, and his LFTs were also elevated. Patient also during his hospitalization had episode of V. tach and was resuscitated successfully. Infectious disease consultation has been requested to evaluate patient with high fevers. Notes reviewed Continues to have intermittent fevers On 3L NC, sats ok CXR with worsening infiltrates SHASHI has vegetation small in AV BP ok C/O mild abdominal pain Does not feel good WBC lower at 15K Hgb at 8.5 HIV negative Hepatitis negative Antibiotics Rocephin Vancomycin Current Medications Medications (Trade) Dose Ordered Sig/Jacky Route Start Time Stop Time Status Last Admin (NS Flush) 2 ml UNSCH PRN IV FLUSH 10/19/17 02:30 (NS Flush) 2 ml BID IV FLUSH 10/19/17 09:00 11/02/17 09:22 (Albuterol Neb) 2.5 mg Q2HR NEB PRN INH 10/19/17 02:30 10/24/17 08:36 ([facility]) 1 Q361D XX 10/19/17 02:30 10/19/17 02:30 (Chlorhexidine 2% Cloth) Taper DAILY@04 TOP 10/19/17 04:00 10/15/18 03:59 10/27/17 04:00 (Chlorhexidine 2% Cloth) 3 pack UNSCH PRN TOP 10/19/17 02:30 (Milk Of Magnesia Liq) 30 ml Q12H PRN PO 10/19/17 02:30 Future Hold (Senokot) 17.2 mg Q12H PRN PO 10/19/17 02:30 Future Hold (Dulcolax Supp) 10 mg DAILY PRN RECTAL 10/19/17 02:30 (Zofran Odt) 4 mg Q6H PRN PO 10/19/17 02:30 10/29/17 23:44 (Tears Naturale Opth Soln) 1 drop Q8HR EACH EYE 10/19/17 06:00 11/01/17 14:00 (Peridex 0.12% Liq) 15 ml BID@08,20 MT 10/19/17 08:00 10/30/17 08:00 Acetaminophen 100 ml @ 400 mls/hr Q8H PRN IV 10/19/17 03:30 11/02/17 10:54 (Brethine Inj) 1 mg UNSCH PRN SQ 10/19/17 07:45 (Lactulose Liq) 30 ml DAILY PRN PO 10/23/17 21:30 Future Hold (D50w (Vial) Inj) 50 ml UNSCH PRN IV PUSH 10/24/17 21:00 (Glucagon Inj) 1 mg UNSCH PRN OTHER 10/24/17 21:00 (Levemir Inj) 5 units Q12HR SQ 10/25/17 10:00 11/02/17 09:21 (Norvasc) 10 mg DAILY PO 10/26/17 09:00 11/02/17 09:21 (Lovenox Inj) 40 mg Q24H SQ 10/26/17 08:00 11/02/17 09:22 (Protonix) 40 mg Q12HR PO 10/27/17 21:00 11/02/17 09:21 (Apresoline) 50 mg Q8HR PO 10/27/17 22:00 11/02/17 05:15 (NovoLOG SUPPLEMENTAL SCALE) 1 ACHS SLIDING SCALE SQ 10/27/17 17:00 11/01/17 21:31 (Mycostatin Powder) 1 applic Q12HR TOPICAL 10/27/17 21:00 11/02/17 09:00 (Ultram) 50 mg Q8H PRN PO 10/29/17 13:15 11/02/17 09:35 Pharmacy Profile Note 0 ml @ 0 mls/hr UNSCH OTHER 10/31/17 12:00 Ceftriaxone Sodium 2000 mg/ Sodium Chloride 100 ml @ 200 mls/hr Q24H IV 10/31/17 13:00 11/01/17 12:35 Vancomycin HCl 1150 mg/Sodium Chloride 261.5 ml @ 250 mls/hr Q8H IV 11/02/17 00:00 11/02/17 09:21 ([facility] Ordered Lab Info) SPECIFIC LAB TO BE DRAWN: VANCO TROUGH DATE TO... ONCE ONCE .XX 11/02/17 15:45 11/02/17 15:46 (Coreg) 6.25 mg Q12HR PO 11/02/17 21:00 Lines PIV no evidence of infection Past Medical History Depression/anxiety Hypertension NSAID use Allergies: Coded Allergies: No Known Allergies (Unverified Allergy, Unknown, 10/18/17) Objective . Vital Signs Date Time Temp Pulse Resp B/P (MAP) Pulse Ox O2 Delivery O2 Flow Rate FiO2 11/02/17 11:44 Nasal Cannula 3.00 11/02/17 11:00 101.2 112 20 132/60 (84) 94 11/02/17 08:22 99.6 106 20 163/90 (114) 94 11/02/17 04:00 100 11/02/17 04:00 100.1 99 20 144/92 (109) 92 11/02/17 03:19 Nasal Cannula 2.00 11/02/17 00:15 99.5 100 20 149/91 (110) 92 11/02/17 00:00 104 11/02/17 00:00 Nasal Cannula 2.00 11/01/17 20:00 108 11/01/17 20:00 99.1 104 20 155/96 (115) 93 11/01/17 20:00 Nasal Cannula 2.00 11/01/17 17:47 92 Nasal Cannula 3.00 11/01/17 16:11 98.3 105 18 142/88 (106) 92 . Laboratory Tests Test 11/01/17 05:55 11/02/17 04:39 White Blood Count 18.3 TH/MM3 15.9 TH/MM3 Red Blood Count 3.22 MIL/MM3 2.94 MIL/MM3 Hemoglobin 8.5 GM/DL 8.0 GM/DL Hematocrit 25.4 % 23.4 % Mean Corpuscular Volume 78.9 FL 79.5 FL Mean Corpuscular Hemoglobin 26.3 PG 27.1 PG Mean Corpuscular Hemoglobin Concent 33.4 % 34.1 % Red Cell Distribution Width 16.6 % 16.8 % Platelet Count 495 TH/MM3 565 TH/MM3 Mean Platelet Volume 9.6 FL 9.1 FL Neutrophils (%) (Auto) 74.5 % Lymphocytes (%) (Auto) 13.2 % Monocytes (%) (Auto) 8.9 % Eosinophils (%) (Auto) 1.9 % Basophils (%) (Auto) 1.5 % Neutrophils # (Auto) 13.6 TH/MM3 Lymphocytes # (Auto) 2.4 TH/MM3 Monocytes # (Auto) 1.6 TH/MM3 Eosinophils # (Auto) 0.4 TH/MM3 Basophils # (Auto) 0.3 TH/MM3 CBC Comment DIFF FINAL Differential Comment Laboratory Tests Test 11/01/17 05:55 11/02/17 04:39 Blood Urea Nitrogen 9 MG/DL 7 MG/DL Creatinine 0.90 MG/DL 0.81 MG/DL Random Glucose 121 MG/DL 114 MG/DL Calcium Level 7.5 MG/DL 7.7 MG/DL Sodium Level 142 MEQ/L 140 MEQ/L Potassium Level 3.0 MEQ/L 3.4 MEQ/L Chloride Level 108 MEQ/L 108 MEQ/L Carbon Dioxide Level 20.3 MEQ/L 21.6 MEQ/L Anion Gap 14 MEQ/L 10 MEQ/L Estimat Glomerular Filtration Rate 113 ML/MIN 128 ML/MIN Magnesium Level 1.6 MG/DL Microbiology Date/Time Source Procedure Growth Status 10/31/17 13:28 Blood Peripheral Aerobic Blood Culture - Preliminary NO GROWTH IN 2 DAYS Resulted 10/31/17 13:28 Blood Peripheral Anaerobic Blood Culture - Preliminary NO GROWTH IN 2 DAYS Resulted 10/31/17 13:20 Blood Peripheral Aerobic Blood Culture - Preliminary NO GROWTH IN 2 DAYS Resulted 10/31/17 13:20 Blood Peripheral Anaerobic Blood Culture - Preliminary NO GROWTH IN 2 DAYS Resulted Imaging Last 72 hours Impressions Abdomen/Pelvis CT 5/26/18 0000 Signed Impressions: CONCLUSION: 1. No evidence of retroperitoneal hemorrhage. 2. Bibasilar subsegmental airspace disease and small bilateral effusions. 3. Patchy areas of hypodensity throughout the liver and spleen of uncertain et iology. Considering patient's history a septic vascular embolic process should be considered. 4. Minimal air in the urinary bladder. 5. Developing anasarca. Chest X-Ray 10/26/17599 Signed Impressions: CONCLUSION: Diffuse consolidation likely related to diffuse underlying processes such as ed aaron or diffuse inflammatory change. Last 72 hours Impressions Chest X-Ray 10/24/17 06 Signed Impressions: CONCLUSION: No significant change. Bilateral pulmonary opacities remain. Head CT 10/24/17 Signed Impressions: CONCLUSION: 1. No acute intracranial abnormality. Gall Bladder Ultrasound 10/23/17 Signed Impressions: CONCLUSION: 1. There is increased echogenicity of the liver suggestive of fatty infiltrati on and/or hepatocellular disease. 2. No evidence of gallstones or biliary tract obstruction. Chest X-Ray 10/23/17 Signed Impressions: CONCLUSION: Scattered bilateral pulmonary infiltrates. Last Impressions Gall Bladder Ultrasound 10/23/17 Signed Impressions: CONCLUSION: Chest X-Ray 10/23/17 Signed Impressions: CONCLUSION: Scattered bilateral pulmonary infiltrates. Renal Ultrasound 10/19/17 Signed Impressions: Service Date/Time: Thursday, October 19, 2017 09:46 - CONCLUSION: Normal examination. Alexx Baig MD Physical Exam GENERAL: Awake and alert, NAD. SKIN: Cool and dry. No generalized rash. HEAD: Atraumatic. Normocephalic. No temporal wasting, or tenderness. EYES: [place] conjunctiva. No petechia or hemorrhage. Has dirty sclera. EARS, NOSE AND THROAT: Nose without bleeding or purulent nasal discharge. Moist mucosa NECK: Trachea midline. Supple and not tender, no meningeal signs CARDIOVASCULAR: Regular rate and rhythm. No murmurs, rubs or gallops heard RESPIRATORY: Decreased BS at bases ABDOMEN: Distended, mild tenderness, not guarding, bowel sounds present and hypoactive. EXTREMITIES: Warm, has pitting edema. Has embolic lesions tip of 3 fingers on his R hand NEUROLOGICAL: Grossly non-focal PSYCHIATRIC: Calm and cooperative LINE: No evidence of infection Assessment & Plan Remarks IMPRESSION Possible sepsis on initial presentation with fevers, dec LOC, MOSF - better - source possible lung, has aishwarya nodular infiltrates, BC negative, no sputum C/S Has multiple embolic lesions, source? - his BC have been negative - initial echo ok Endocarditis - C/S have been negative on admission - ?Culture negative endocarditis Aishwarya pulmonary infiltrates, etiology? - ?inflammatory DM, DKA Elevated CPK Elevated LFTs Renal failure Acidosis, resolved Encephalopathy, ?metabolic, or [employer] etiology, resolved Leukocytosis, persistent, but decreasing Anemia Diarrhea, C Diff negative RECOMMENDATION Continue Rocephin Continue Vancomycin Await serologies Pulmonary evaluation of bilateral infiltrates Follow CBC Follow C/S Follow temps Monitor progress Explained plan to the patient Haley Sanchez MD Nov 02, 2017 13:10
--- NOTE | 2017-11-02 13:20 | HHI.HCPN ---
Reason for visit a. To assist with evaluation and management of symptoms including: fatigued , pain b. To assist medical decision maker(s) with: better understanding of current medical conditions; weighing benefits/burdens of medical treatment options; making medical treatment decisions. (Madhuri Weaver) Subjective/Interval History Pt seen today to follow up on comfort,goals. S/p SHASHI, + small aortic vegetation. 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 HIV, Hep, HSV panels negative. CSF studies negative . Q fever, bartonella serology pending. Remains on rocephin, vanco per ID. Febrile, 101.2 today. Chemistry unremarkable. H&H low , stable. Hemoglobin cascade pending. Pt seen in room, no visitors present. He is sleeping, arouses easily. Oriented, appropriate, pleasant. Indicates today is a "bad day". Feels chills, fever. Denies GI complaints, No pain at this time just generally "feels bad". Indicates understanding of SHASHI findings and discussing with ID. Review with him negative labs/serology for infectious sources thus far, negative cultures, and additional pending labs. Review with him complexity/gravity of treating endocarditis, and generally requiring many weeks of treatments. He endorses he is having a bad day today but wishes to continue with treatments that may help him recover. He requests I call his sister to provide her an update . Review with him what information I may share/discuss , he indicates any information about his conditions including labs, infectious processes, negative labs etc. . Family/friend interactions Following exam call to sister Kirsty, she also placed a call to Gissell was able to speak to both of them on conference call, approx 20 min. They have general understanding of his hospital course thus far. Review with him past several days of events, diagnostics, clinical assessment, current assessment. Review with them pending diagnostics. Review with him trajectory and possible prognosis associated with treating endocarditis, often requires longer term treatment, and patient could be high risk for recurrence or complications related to. All questions answered to the best of my ability. Obtained updated contact information for Gissell. Provided him with palliative contact information. Review with them that I have been discussing patient wishes with him in terms of reintubation status, CODE STATUS, or any possible limitations or timelines that he would want in place should he ever need artificial life support again etc. They indicate that they planned this weekend to go over living will/advanced directives with him to further clarify his wishes. . (Madhuri Weaver) Advance Directives Durable Power of Ribbon Hand: Copy in medical record (Designates Dimitrios Castelan, but document does not arsalan Mediccal or Health Care decision making.) (Madhuri Weaver) Advance Directive Specifics Date completed: 10/29/17 Health Care Surrogate(s): HCS sister Kirsty Palomo, 2nd Valerie Palomo . (Madhuri Weaver) Objective Vital Signs Date Time Temp Pulse Resp B/P (MAP) Pulse Ox O2 Delivery O2 Flow Rate FiO2 11/02/17 11:44 Nasal Cannula 3.00 11/02/17 11:00 101.2 112 20 132/60 (84) 94 11/02/17 08:22 99.6 106 20 163/90 (114) 94 11/02/17 04:00 100 11/02/17 04:00 100.1 99 20 144/92 (109) 92 11/02/17 03:19 Nasal Cannula 2.00 11/02/17 00:15 99.5 100 20 149/91 (110) 92 11/02/17 00:00 104 11/02/17 00:00 Nasal Cannula 2.00 11/01/17 20:00 108 11/01/17 20:00 99.1 104 20 155/96 (115) 93 11/01/17 20:00 Nasal Cannula 2.00 11/01/17 17:47 92 Nasal Cannula 3.00 11/01/17 16:11 98.3 105 18 142/88 (106) 92 Intake & Output 11/02/17 11/02/17 07:00 19:00 Intake Total 1081.5 ml Output Total 2400 ml Balance -1318.5 ml Intake Oral 720 ml IV Total 361.5 ml Output Urine Total 2400 ml Physical Exam CONSTITUTIONAL/GENERAL: This is an adequately nourished patient, lethargic, no distress TUBES/LINES/DRAINS: NC O2, PIV RUE SKIN: No jaundice, rashes, or lesions. skin warm/dry. Many tattoos to trunk, UE. CARDIOVASCULAR: Regular rate and rhythm , no murmur. No JVD. Peripheral pulses symmetric. trace pedal edema RESPIRATORY/CHEST: Symmetric, unlabored respirations. ON NC. Clear, diminished. GASTROINTESTINAL: Abdomen soft, round, non-tender, nondistended. No palpable masses. No guarding. Bowel sounds normoactive MUSCULOSKELETAL: Extremities without clubbing, cyanosis. Trace pedal edema. NEUROLOGICAL: Lethargic though arouses for exam, oriented. appropriate, reasonable insight. Flat, tired affect today. Weak, moves all 4 extremities PSYCHIATRIC:no evident anxiety or depression, slightly flat/tired affect today . (Madhuri Weaver) Diagnostic Tests Laboratory Laboratory Tests Test 10/31/17 05:42 11/01/17 05:55 11/01/17 11:40 11/01/17 14:10 White Blood Count 18.9 TH/MM3 (4.0-11.0) 18.3 TH/MM3 (4.0-11.0) Red Blood Count 3.16 MIL/MM3 (4.50-5.90) 3.22 MIL/MM3 (4.50-5.90) Hemoglobin 8.5 GM/DL (13.0-17.0) 8.5 GM/DL (13.0-17.0) Hematocrit 25.3 % (39.0-51.0) 25.4 % (39.0-51.0) Mean Corpuscular Volume 79.8 FL (80.0-100.0) 78.9 FL (80.0-100.0) Mean Corpuscular Hemoglobin 26.9 PG (27.0-34.0) 26.3 PG (27.0-34.0) Mean Corpuscular Hemoglobin Concent 33.7 % (32.0-36.0) 33.4 % (32.0-36.0) Red Cell Distribution Width 17.0 % (11.6-17.2) 16.6 % (11.6-17.2) Platelet Count 444 TH/MM3 (150-450) 495 TH/MM3 (150-450) Mean Platelet Volume 10.1 FL (7.0-11.0) 9.6 FL (7.0-11.0) Erythrocyte Sedimentation Rate GREATER THAN 140 mm/hr Reticulocyte Count 6.8 % (0.4-3.0) Absolute Reticulocyte Count 212.0 MIL/L (20.0-150.0) Hemoglobin Electrophoresis Interp Haptoglobin 269 MG/DL (30-200) Blood Urea Nitrogen 12 MG/DL (7-18) 9 MG/DL (7-18) Creatinine 1.03 MG/DL (0.60-1.30) 0.90 MG/DL (0.60-1.30) Random Glucose 146 MG/DL (74-106) 121 MG/DL (74-106) Calcium Level 8.0 MG/DL (8.5-10.1) 7.5 MG/DL (8.5-10.1) Sodium Level 142 MEQ/L (136-145) 142 MEQ/L (136-145) Potassium Level 3.1 MEQ/L (3.5-5.1) 3.0 MEQ/L (3.5-5.1) Chloride Level 108 MEQ/L (98-107) 108 MEQ/L (98-107) Carbon Dioxide Level 25.0 MEQ/L (21.0-32.0) 20.3 MEQ/L (21.0-32.0) Anion Gap 9 MEQ/L (5-15) 14 MEQ/L (5-15) Estimat Glomerular Filtration Rate 97 ML/MIN (>89) 113 ML/MIN (>89) Magnesium Level 1.4 MG/DL (1.5-2.5) Lactate Dehydrogenase 456 U/L (87-241) Total Protein 5.8 GM/DL (6.0-7.6) Albumin 2.29 GM/DL (3.50-5.00) Albumin/Globulin Ratio 0.65 (1.39-2.23) Sbyho-0-Heawulgqx 0.45 GM/DL (0.11-0.29) Jgxou-0-Wimkjcsmb 0.88 GM/DL (0.22-1.00) Beta Globulins 0.74 GM/DL (0.53-1.03) Gamma Globulins 1.44 GM/DL (0.50-1.39) Folate 15.7 NG/ML (3.1-17.5) Neutrophils (%) (Auto) 74.5 % (16.0-70.0) Lymphocytes (%) (Auto) 13.2 % (9.0-44.0) Monocytes (%) (Auto) 8.9 % (0.0-8.0) Eosinophils (%) (Auto) 1.9 % (0.0-4.0) Basophils (%) (Auto) 1.5 % (0.0-2.0) Neutrophils # (Auto) 13.6 TH/MM3 (1.8-7.7) Lymphocytes # (Auto) 2.4 TH/MM3 (1.0-4.8) Monocytes # (Auto) 1.6 TH/MM3 (0-0.9) Eosinophils # (Auto) 0.4 TH/MM3 (0-0.4) Basophils # (Auto) 0.3 TH/MM3 (0-0.2) CBC Comment DIFF FINAL Differential Comment Vancomycin Level Trough 9.8 MCG/ML (5.0-10.0) Test 11/02/17 04:39 White Blood Count 15.9 TH/MM3 (4.0-11.0) Red Blood Count 2.94 MIL/MM3 (4.50-5.90) Hemoglobin 8.0 GM/DL (13.0-17.0) Hematocrit 23.4 % (39.0-51.0) Mean Corpuscular Volume 79.5 FL (80.0-100.0) Mean Corpuscular Hemoglobin 27.1 PG (27.0-34.0) Mean Corpuscular Hemoglobin Concent 34.1 % (32.0-36.0) Red Cell Distribution Width 16.8 % (11.6-17.2) Platelet Count 565 TH/MM3 (150-450) Mean Platelet Volume 9.1 FL (7.0-11.0) Blood Urea Nitrogen 7 MG/DL (7-18) Creatinine 0.81 MG/DL (0.60-1.30) Random Glucose 114 MG/DL (74-106) Calcium Level 7.7 MG/DL (8.5-10.1) Magnesium Level 1.6 MG/DL (1.5-2.5) Sodium Level 140 MEQ/L (136-145) Potassium Level 3.4 MEQ/L (3.5-5.1) Chloride Level 108 MEQ/L (98-107) Carbon Dioxide Level 21.6 MEQ/L (21.0-32.0) Anion Gap 10 MEQ/L (5-15) Estimat Glomerular Filtration Rate 128 ML/MIN (>89) (Madhuri Weaver) Result Diagram: 11/02/17 0439 11/02/17438 Microbiology Microbiology Date/Time Source Procedure Growth Status 10/31/17 13:28 Blood Peripheral Aerobic Blood Culture - Preliminary NO GROWTH IN 2 DAYS Resulted 10/31/17 13:28 Blood Peripheral Anaerobic Blood Culture - Preliminary NO GROWTH IN 2 DAYS Resulted 10/31/17 13:20 Blood Peripheral Aerobic Blood Culture - Preliminary NO GROWTH IN 2 DAYS Resulted 10/31/17 13:20 Blood Peripheral Anaerobic Blood Culture - Preliminary NO GROWTH IN 2 DAYS Resulted Imaging Last Impressions Chest X-Ray 11/01/17 0000 Signed Impressions: CONCLUSION: Diffuse bilateral patchy airspace disease again seen Abdomen/Pelvis CT 10/27/17 0000 Signed Impressions: CONCLUSION: 1. No evidence of retroperitoneal hemorrhage. 2. Bibasilar subsegmental airspace disease and small bilateral effusions. 3. Patchy areas of hypodensity throughout the liver and spleen of uncertain et iology. Considering patient's history a septic vascular embolic process should be considered. 4. Minimal air in the urinary bladder. 5. Developing anasarca. Chest CT 10/25/17 0000 Signed Impressions: CONCLUSION: 1. Multiple bilateral scattered interstitial and airspace infiltrates througho ut both lung yuen suggestive of some type of inflammatory process. 2. Abnormal appearance of the liver. Recommend CT scan of the abdomen with IV contrast for further evaluation. Brain MRI 10/25/17 0000 Signed Impressions: CONCLUSION: 1. Unremarkable MRI examination of the brain. Specifically, no cerebral edema or diffusion abnormality to suggest encephalitis. Head CT 10/24/17 0000 Signed Impressions: CONCLUSION: 1. No acute intracranial abnormality. Gall Bladder Ultrasound 10/23/17 0000 Signed Impressions: CONCLUSION: 1. There is increased echogenicity of the liver suggestive of fatty infiltrati on and/or hepatocellular disease. 2. No evidence of gallstones or biliary tract obstruction. Renal Ultrasound 10/19/17 0000 Signed Impressions: Service Date/Time: Thursday, October 19, 2017 09:46 - CONCLUSION: Normal examination. Alexx Baig MD Procedures Intubation 10/18. Central line placed 10/18. A line placement 10/19. (Madhuri Weaver) Assessment and Plan Disease Oriented Problem List: (1) Sepsis (2) Arrhythmia Comment: V-Tach then cardiac arrest. (3) Lactic acidosis (4) Acute kidney injury (5) Acute encephalopathy (6) Acute respiratory failure Comment: bilateral pulmonary infiltrates (7) Hyperglycemia Symptom Scale: (1) Fatigue 0-10 Scale: Unable to quantify (2) Pain 0-10 Scale: 0 Pertinent Non-Medical Issues Psychosocial:recently in care home. He served in the [employer]. On disability Spiritual: unknown Legal: POA did not give power for health care decision making to pt's cousin. His children daughter and son has not been reachable. pt neuro status improving, now able to participate in decision making. has also surrogate designation naming his 2 sisters as surrogates. Patient father HAD been serving as proxy however he is now completed healthcare surrogate designation naming his sisters. Health care proxy is pt's Father Geovani Palomo. Ethical issues impacting care:none Important Contacts Sister- [facility] Kirsty Palomo [phone] Sister Valerie Palomo, [facility] [phone] Geovani Palomo (father) [phone] We have made several attempts to contact pt's son and daughter and they have not been reasonably reachable. His adult Children Christofer Ryan and Arin Ryan has been estranged from patient Christofer Palomo [phone] (son) Dimitrios Castelan(cousin) [phone] and [phone] POA but only financial. Heather (aunt) [phone] Adali Castelan (cousin) [phone] -Denise Gould (significant other).[phone] Prognosis 42 year old male with came in with sepsis- with respiratory failure, hyperglycemia with dka, hypokalemia. On 10/19 coded V-tach . Prognosis is guarded and still remains critical, but pt clinical condition has improved. Code Status: Full Code Plan * Code= full code * decision making: pt neuro status improving, now able to participate in decision making. completed surrogate designation naming his 2 sisters as surrogates. * Symptoms- -- Pain- s/p cpr, intubation/extubation. Has indicated has hx chronic back pain, pain to legs "sharp pain " to feet. +today c/o abdominal pain/nausea ongoing during hospital course. he has prn tramadol; indicates this has been effective for him in the past. has 50mg Q 8 hr prn, has been using 1-2 doses per day. Will cont to evaluate effectiveness/requirements -- fatigue- generalized weakness/deconditioning, ongoing infectious process; will need ongoing nutritional support, as well as PT, OT to maintain strength [fair to good p.o. intake generally eating 75-100% of at least 2 meals a day] * Goals of Treatment : Aggressive. Pt to have ongoing discussions with family regarding reintubation/ possible limitations on etc. open to ongoing conversations as clinical course evolves. Patient sisters and healthcare surrogate have been updated on his conditions and pending diagnostics etc. They are supportive of patient's wishes, they indicate they will be discussing with him further this weekend living well, CODE STATUS etc. * Palliative care will continue to follow during hospital course as condition evolves, to assist patient/decision-maker with understanding of medical conditions, weighing benefits/burdens of treatment options, for clarification of goals of treatment. Additionally will assist with any symptoms of palliative concern (Madhuri Weaver) Time Spent Total Floor Time (mins): 30 (Chart review, PE, discussion with patient, discussion with sisters/healthcare surrogates ) (Madhuri Weaver) Attestation To help prompt me to consider important information that might be impacting today's encounter and assessment, information from prior notes written by myself or my colleagues may have been "brought forward" into today's note. My signature on this note, however, is an attestation that I personally performed the exam, history, and/or decision-making noted today, and, unless otherwise indicated, the interactions with patient, family, and staff as well as the review of records all occurred today. I also attest that the listed assessment and stated plan reflect my best clinical judgment today based on the combination of historical information, prior notes, and today's exam/ interactions. When time spent is documented, it refers only to time spent today by the signer, or if indicated, combined time spent today by collaborating physician/nurse practitioner. (Madhuri Weaver) Collaborating MD Comments Chart reviewed. Case discussed with palliative care PATHOLOGY LABORATORY AIDE. Above PATHOLOGY LABORATORY AIDE note reviewed and I concur. . (Lee Infante MD) Madhuri Weaver Nov 02, 2017 13:20 Lee Infante MD Nov 17, 2017 15:55
[2017-11-02] MEDS: cefTRIAXone INJ 2,000 MG in SODIUM CHLORIDE 0.9% INJ 100 ML IV SCH (13:46)
[2017-11-02] MEDS ORDERED: PHARMACY ORDERED LAB ONE (15:45)
--- NOTE | 2017-11-02 18:57 | HHI.PR ---
Subjective Remarks Patient still complains of low-grade fevers throughout the day, feels very weak. Objective Vitals Vital Signs Date Time Temp Pulse Resp B/P (MAP) Pulse Ox O2 Delivery O2 Flow Rate FiO2 11/02/17 17:34 Nasal Cannula 3.00 11/02/17 16:10 99.4 98 18 126/76 (93) 94 11/02/17 11:44 Nasal Cannula 3.00 11/02/17 11:00 101.2 112 20 132/60 (84) 94 11/02/17 08:22 99.6 106 20 163/90 (114) 94 11/02/17 08:00 108 11/02/17 08:00 96 Nasal Cannula 2.00 21 11/02/17 04:00 100 11/02/17 04:00 100.1 99 20 144/92 (109) 92 11/02/17 03:19 Nasal Cannula 2.00 11/02/17 00:15 99.5 100 20 149/91 (110) 92 11/02/17 00:00 104 11/02/17 00:00 Nasal Cannula 2.00 11/01/17 20:00 108 11/01/17 20:00 99.1 104 20 155/96 (115) 93 11/01/17 20:00 Nasal Cannula 2.00 I/O 11/01/17 11/01/17 11/01/17 11/02/17 11/02/17 11/02/17 07:00 15:00 23:00 07:00 15:00 23:00 Intake Total 515 ml 600 ml 981.5 ml Output Total 2100 ml 2400 ml Balance 515 ml -1500 ml -1418.5 ml Intake Oral 500 ml 720 ml IV Total 515 ml 100 ml 261.5 ml Output Urine Total 2100 ml 2400 ml # Bowel Movements 1 Result Diagram: 11/02/17 0439 11/02/17 0439 Objective Remarks GENERAL: Well-nourished, well-developed patient. Weak appearing SKIN: Warm and dry. Dark nodular lesions on fingertips, nodules on chest HEAD: Normocephalic. EYES: No scleral icterus. No injection or drainage. NECK: Supple, trachea midline. No JVD or lymphadenopathy. CARDIOVASCULAR: Regular rate and rhythm without murmurs, gallops, or rubs. RESPIRATORY: Breath sounds equal bilaterally. No accessory muscle use. GASTROINTESTINAL: Abdomen soft, non-tender, nondistended. EXTREMITIES: No cyanosis, or edema. NEUROLOGICAL: Awake, alert, and oriented x 3. Non-focal. Date of Insertion: October 19, 2017 A/P Problem List: (1) Acute respiratory failure ICD Code: J96.00 - Acute respiratory failure, unspecified whether with hypoxia or hypercapnia (2) Acute encephalopathy ICD Code: G93.40 - Encephalopathy, unspecified Status: Acute (3) Normocytic anemia ICD Code: D64.9 - Anemia, unspecified (4) Lactic acidosis ICD Code: E87.2 - Acidosis Status: Acute (5) Hypoalbuminemia ICD Code: E88.09 - Other disorders of plasma-protein metabolism, not elsewhere classified (6) Hypophosphatemia ICD Code: E83.39 - Other disorders of phosphorus metabolism Status: Acute (7) Hypokalemia ICD Code: E87.6 - Hypokalemia Status: Acute (8) Hypermagnesemia ICD Code: E83.41 - Hypermagnesemia (9) Acute kidney injury ICD Code: N17.9 - Acute kidney failure, unspecified Status: Acute (10) Leukocytosis ICD Code: D72.829 - Elevated white blood cell count, unspecified Status: Acute (11) Hyponatremia ICD Code: E87.1 - Hypo-osmolality and hyponatremia Status: Acute (12) Hypertension ICD Code: I10 - Essential (primary) hypertension (13) Pyrexia ICD Code: R50.9 - Fever, unspecified Status: Acute (14) Depression ICD Code: F32.9 - Major depressive disorder, single episode, unspecified (15) Ketoacidosis due to secondary diabetes ICD Code: E13.10 - Other specified diabetes mellitus with ketoacidosis without coma Status: Acute (16) BMI 37.0-37.9, adult ICD Code: Z68.37 - Body mass index (BMI) 37.0-37.9, adult Status: Acute Assessment and Plan Endocarditis, sepsis, fevers Patient has multiple embolic lesions, SHASHI shows aortic valve vegetation 0.7 x 0.8 cm Patient continues to show low-grade fevers throughout the day with occasional fevers above 100.4 Awaiting slow-growing cultures from microbiology Infectious disease recommends staying with Rocephin and vancomycin for now Appreciate infectious disease consult Appreciate cardiology workup Hypertension Continue Norvasc, Coreg,and hydralazine. Acute hypoxic and hypercarbic respiratory failure Extubated 10/24/2017, doing well on nasal cannula oxygen Pulmonology consulted for abnormalities on imaging Upper GI bleed By patient history he vomited blood with some clots 2 weeks prior to admission Gastroenterology consulted Continue pantoprazole Acute hyperglycemic state Continue sliding-scale insulin with Accu-Cheks Continue Levemir 5 U q12h, hemoglobin A1c 13. Diabetic diet Tinea cruris Continue nystatin DVT prophylaxis Lovenox Problem Qualifiers (1) Acute respiratory failure: Qualified Codes: J96.01 - Acute respiratory failure with hypoxia; J96.02 - Acute respiratory failure with hypercapnia (2) Pyrexia: Qualified Codes: R50.9 - Fever, unspecified (3) Depression: Qualified Codes: F32.9 - Major depressive disorder, single episode, unspecified Cornel Carney MD Nov 02, 2017 18:57
--- NOTE | 2017-11-02 19:05 | MB ---
cc: Han Gonsalves MD, Arjun D MD DATE: 11/02/2017 REQUESTING PHYSICIAN: Dr. Sanchez REASON FOR CONSULTATION: Evaluate for worsening lung infiltrates. HISTORY OF PRESENT ILLNESS: Mr. Palomo is a 42-year-old male with a history of hypertension, PTSD and bipolar disorder. The patient was recently released from alf. He did not have any known history of diabetes mellitus. The patient states that he was feeling sick for the last 3-4 days prior to this admission and he has been feeling extremely thirsty and was drinking a lot of water. He also has decrease in mentation. Because of his symptoms, he was given permission to come to the hospital. When he came to the hospital, his blood sugar was 1800, creatinine was high. The patient was in acute hyperglycemic ketoacidosis. He also developed respiratory failure and was intubated, now has been successfully extubated. Currently he is on nasal cannula. The patient has been running fever. He is on antibiotic. He had a CT scan of the chest done, which shows bilateral multiple scattered interstitial and airspace infiltrates suggestive of some type of inflammatory process. His cultures have been negative. CBC showed WBC count of 15.9, hemoglobin 8, hematocrit 23.4, MCV 79, platelet count 565. Sodium 140, potassium 3.4, chloride of 108, CO2 of 21, BUN 7, creatinine 0.81. Blood cultures are negative. Sputum culture is negative. CSF studies were negative. PAST MEDICAL HISTORY: Hypertension, PTSD, bipolar disorder. CURRENT MEDICATIONS: 1. Coreg, 6.25 MG 2. Vancomycin 1500 mg q.8 hr 3. Rocephin 2 grams q.24 hr. 4. Tramadol 50 mg q.8 hr. 5. Hydralazine 50 mg q.8 hr. 5. Protonix 40 mg q 12 hours. 6. Lovenox 40 mg q. 12 hours. 7. Insulin 5 units q.12 hours. 8. Brethine p.r.n. ALLERGIES: NO KNOWN DRUG ALLERGIES. SOCIAL HISTORY: He has a history of smoking in the past and used marijuana. FAMILY HISTORY: He is , now lives with his significant other, has 1 child. He is estranged. He has 5 sisters. REVIEW OF SYSTEMS: He feels very weak and tired, has diarrhea. Has abdominal discomfort. No known asthma or emphysema. No joint pain. PHYSICAL EXAMINATION: GENERAL: Reveals a well-built, well-nourished male in mild short of breath not in acute distress. VITAL SIGNS: Blood pressure 126/76, heart rate 90, respirations 18, temperature 99.4. HEENT: Pupils are equal and reactive to light. Oral mucosa and nasal mucosa normal. NECK: Supple. JVP not raised. CHEST: Equal bilaterally. Has few scattered rales. HEART: S1, S2 normal. ABDOMEN: Benign. EXTREMITIES: No edema. IMPRESSION: 1. Bilateral lung infiltrate with ongoing fever. He has been treated with antibiotic. Cultures have been negative. Possibility of inflammatory process of the lung or alveolitis. 2. Diabetes mellitus. 3. Renal insufficiency has improved. 4. Benign prostatic hypertrophy. 5. Bipolar disorder. PLAN: Discussed with the patient. He is being treated with antibiotic. We will check his sedimentation rate and probably will need a course of steroids. Before the initiation of steroids, we will discuss the need for bronchoscopy to see if there is any evidence of any infectious process. I discussed with patient. He is agreeable to proceed with bronchoscopy. Further treatment will depend on the course in the hospital. Thank you, Dr. Sanchez, for this consult. MD ANNABEL Everett/ , 06:25 PM , 07:04 PM
[2017-11-02] MEDS: CHLORHEXIDINE 0.12% (ORAL KIT) 15 ML CUP MT SCH (20:00)
[2017-11-02] MEDS: CARVEDILOL 6.25 MG TAB PO SCH (20:58)
[2017-11-02 23:53] LABS: Q FEVER PHASE I AB IGG NEGATIVE (NEGATIVE); Q FEVER PHASE I AB IGM NEGATIVE (NEGATIVE); Q FEVER PHASE II AB IGG NEGATIVE (NEGATIVE); Q FEVER PHASE II AB IGM NEGATIVE (NEGATIVE)
[2017-11-03] VITALS (8 sets, daily range): BP systolic 135–166; BP diastolic 71–103; PULSE 91–108; RESP 19–21; TEMP 98.7–100.8; O2SAT 91–95
[2017-11-03 00:38] LABS: BARTONELLA HENSELAE IGG <1:128 titer (<1:128); BARTONELLA HENSELAE IGM <1:20 titer (<1:20); BARTONELLA QUINTANA IGG <1:128 titer (<1:128); BARTONELLA QUINTANA IGM <1:20 titer (<1:20)
[2017-11-03] MEDS: VANCOMYCIN INJ 1,150 MG in SODIUM CHLOR 0.9% 250 ML INJ 250 ML IV SCH ×3 (00:42→16:17)
[2017-11-03] MEDS: traMADol HCL 50 MG TAB PO PRN ×3 (01:42→18:26)
[2017-11-03] MEDS: CHLORHEXIDINE GLUCONATE 2 % 1 PACK (2 CLOTHS) TOP SCH (04:00)
[2017-11-03] MEDS: hydrALAZINE HCL 50 MG TAB PO SCH ×3 (06:34→20:20)
[2017-11-03] MEDS: ARTIFICIAL TEARS OPTH SOLN 15 ML BTL EACH EYE SCH ×3 (06:34→20:21)
[2017-11-03] MEDS: INSULIN ASPART SUPPLEMENTAL SCALE SQ SCH ×4 (07:56→20:20)
[2017-11-03] MEDS: CHLORHEXIDINE 0.12% (ORAL KIT) 15 ML CUP MT SCH ×2 (08:00→19:27)
[2017-11-03] MEDS: PANTOPRAZOLE SOD 40 MG DELAYED RELEASE TAB PO SCH ×2 (08:36→20:20)
[2017-11-03] MEDS: ENOXAPARIN SODIUM 40 MG/0.4 ML SYRINGE SQ SCH (08:36)
[2017-11-03] MEDS: INSULIN DETEMIR 100 UNITS/ML VIAL SQ SCH ×2 (08:38→21:37)
[2017-11-03] MEDS: CARVEDILOL 6.25 MG TAB PO SCH ×2 (08:39→20:20)
[2017-11-03] MEDS: SODIUM CHLORIDE 0.9% FLUSH 10 ML FLUSH IV FLUSH SCH ×2 (08:40→20:20)
[2017-11-03] MEDS: NYSTATIN 100,000 U/GM PWD 15 GM BTL TOPICAL SCH ×2 (08:56→20:21)
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
[2017-11-03] MEDS ORDERED: GADODIAMIDE PF 287 MG/ML 20 ML VIAL (for RAD MRI) IVCONTRAST ONE (13:45)
--- NOTE | 2017-11-03 14:22 | RADRPT ---
EXAM DATE: 11/03/2017 2:07 PM EDT AGE/SEX: 42 years / Male INDICATIONS: Abnormal CT scan. CLINICAL DATA: This is the patient's subsequent encounter. Patient reports that signs and symptoms h ave been present for 3 weeks and indicates a pain score of 0/10. MEDICAL/SURGICAL HISTORY: Diabetes mellitus type II. Hypertension. Shrapnel in soft tissues of chest. OK to scan per Dr Winters. None. COMPARISON: [facility] – [place], CT THORAX W/O CONTRAST, 10/25/2017. . TECHNIQUE: Multiplanar, multisequence images of the abdomen were obtained prior to and following adm inistration of 20cc ml Omniscan (gadodiamide) contrast as a single exam dose with dynamic multiphase technique. FINDINGS: Liver is enlarged at 21.5 cm craniocaudal. There is persistent patchy heterogeneous signal intensity and enhancement of the liver parenchyma, especially subcapsular of the right hepatic lobe and around the falciform ligament region. I don't see that any of this has changed significantly since the prior CT and is likely related to a benign vascular phenomena related to hepatomegaly and/or hepatocellula r disease. The portal vein is patent. No intrahepatic biliary distention. No focal hepatic mass demon strated. Patient has a very small spleen and also has diffuse heterogeneous signal intensity and enhancement. No focal mass demonstrated. Both kidneys are in the order of 13.8 cm in length. There is a 1 cm benign cyst of the left upper alfredo e. No hydronephrosis. Pancreas within normal limits. Adrenal glands within normal limits. Small effusions and patchy consolidation seen of the visualized lung bases, not convincingly changed from the prior CT. CONCLUSION: 1. Nonspecific heterogeneous signal and enhancement pattern of the liver as described above and not convincingly changed from the prior CT. This is not particularly masslike or with organized fluid. A transient phenomenon related to hepatomegaly and/or hepatocellular disease is thought most likely. He patic abscesses are considered unlikely. 2. Small spleen and it also has diffusely heterogeneous signal and enhancement. Acute or subacute joaquin perimposed on chronic splenic infarcts are considered most likely. No significant change from the CT. In addition, no particularly mass like area and also no evidence of organized fluid so splenic absce sses are considered less likely. Electronically signed by: Lucio Barrera MD 11/03/2017 2:20 PM EDT
[2017-11-03] MEDS: cefTRIAXone INJ 2,000 MG in SODIUM CHLORIDE 0.9% INJ 100 ML IV SCH (14:41)
--- NOTE | 2017-11-03 17:03 | HHI.PR ---
Subjective Remarks Patient reports he is still having fevers. Vital signs show that the frequency is slightly less than days prior. When asked if he is anxious patient admits that he is and he is having trouble sleeping which is exhausting him. Objective Vitals Vital Signs Date Time Temp Pulse Resp B/P (MAP) Pulse Ox O2 Delivery O2 Flow Rate FiO2 11/03/17 16:35 Nasal Cannula 2.00 11/03/17 12:20 101 11/03/17 12:02 95 Nasal Cannula 2.00 11/03/17 12:00 Nasal Cannula 2.00 11/03/17 08:00 98 11/03/17 08:00 Nasal Cannula 2.00 11/03/17 04:00 98.9 105 21 157/74 (101) 94 11/03/17 04:00 91 11/03/17 00:00 97 11/03/17 00:00 100.8 98 19 138/71 (93) 95 11/02/17 20:05 102 11/02/17 20:00 Nasal Cannula 2.00 11/02/17 20:00 99.3 97 19 138/71 (93) 95 11/02/17 17:34 Nasal Cannula 3.00 I/O 11/02/17 11/02/17 11/02/17 11/03/17 11/03/17 11/03/17 06:59 14:59 22:59 06:59 14:59 22:59 Intake Total 981.5 ml 720 ml Output Total 2400 ml 600 ml Balance -1418.5 ml 120 ml Intake Oral 720 ml 720 ml IV Total 261.5 ml Output Urine Total 2400 ml 600 ml Result Diagram: 11/02/17 0439 11/02/17 043 Objective Remarks GENERAL: Well-nourished, well-developed patient. Weak appearing SKIN: Warm and dry. Dark nodular lesions on fingertips, nodules on chest HEAD: Normocephalic. EYES: No scleral icterus. No injection or drainage. NECK: Supple, trachea midline. No JVD or lymphadenopathy. CARDIOVASCULAR: Regular rate and rhythm without murmurs, gallops, or rubs. RESPIRATORY: Breath sounds equal bilaterally. No accessory muscle use. GASTROINTESTINAL: Abdomen soft, non-tender, nondistended. EXTREMITIES: No cyanosis, or edema. NEUROLOGICAL: Awake, alert, and oriented x 3. Non-focal. Date of Insertion: October 19, 2017 A/P Problem List: (1) Acute respiratory failure ICD Code: J96.00 - Acute respiratory failure, unspecified whether with hypoxia or hypercapnia (2) Acute encephalopathy ICD Code: G93.40 - Encephalopathy, unspecified Status: Acute (3) Normocytic anemia ICD Code: D64.9 - Anemia, unspecified (4) Lactic acidosis ICD Code: E87.2 - Acidosis Status: Acute (5) Hypoalbuminemia ICD Code: E88.09 - Other disorders of plasma-protein metabolism, not elsewhere classified (6) Hypophosphatemia ICD Code: E83.39 - Other disorders of phosphorus metabolism Status: Acute (7) Hypokalemia ICD Code: E87.6 - Hypokalemia Status: Acute (8) Hypermagnesemia ICD Code: E83.41 - Hypermagnesemia (9) Acute kidney injury ICD Code: N17.9 - Acute kidney failure, unspecified Status: Acute (10) Leukocytosis ICD Code: D72.829 - Elevated white blood cell count, unspecified Status: Acute (11) Hyponatremia ICD Code: E87.1 - Hypo-osmolality and hyponatremia Status: Acute (12) Hypertension ICD Code: I10 - Essential (primary) hypertension (13) Pyrexia ICD Code: R50.9 - Fever, unspecified Status: Acute (14) Depression ICD Code: F32.9 - Major depressive disorder, single episode, unspecified (15) Ketoacidosis due to secondary diabetes ICD Code: E13.10 - Other specified diabetes mellitus with ketoacidosis without coma Status: Acute (16) BMI 37.0-37.9, adult ICD Code: Z68.37 - Body mass index (BMI) 37.0-37.9, adult Status: Acute Assessment and Plan Endocarditis, sepsis, fevers Patient has multiple embolic lesions, SHASHI shows aortic valve vegetation 0.7 x 0.8 cm Patient continues to show low-grade fevers Awaiting slow-growing cultures from microbiology Infectious disease recommends staying with Rocephin and vancomycin for now If fevers persist consider HACEK work up and addition of doxycycline for expanded coverage if ID agrees (for culture negative endocarditis) Appreciate infectious disease consult Appreciate cardiology workup Hypertension Continue Norvasc, Coreg,and hydralazine. Anxiety Xanax added Acute hypoxic and hypercarbic respiratory failure Extubated 10/24/2017, doing well on nasal cannula oxygen Pulmonology consulted for abnormalities on imaging Upper GI bleed By patient history he vomited blood with some clots 2 weeks prior to admission Gastroenterology consulted Continue pantoprazole Acute hyperglycemic state Continue sliding-scale insulin with Accu-Cheks Continue Levemir 5 U q12h, hemoglobin A1c 13. Diabetic diet Tinea cruris Continue nystatin DVT prophylaxis Lovenox Problem Qualifiers (1) Acute respiratory failure: Qualified Codes: J96.01 - Acute respiratory failure with hypoxia; J96.02 - Acute respiratory failure with hypercapnia (2) Pyrexia: Qualified Codes: R50.9 - Fever, unspecified (3) Depression: Qualified Codes: F32.9 - Major depressive disorder, single episode, unspecified Cornel Carney MD Nov 03, 2017 17:03
[2017-11-03] MEDS: ALPRAZolam 0.25 MG TAB PO PRN (18:26)
[2017-11-03] MEDS: ACETAMINOPHEN 325 MG TAB PO PRN (18:58)
[2017-11-04] VITALS: BP 147/96; PULSE 95; PULSE 99; RESP 20; TEMP 99.2; O2SAT 93
[2017-11-04] MEDS: VANCOMYCIN INJ 1,150 MG in SODIUM CHLOR 0.9% 250 ML INJ 250 ML IV SCH ×3 (00:52→16:28)
[2017-11-04] MEDS: ALPRAZolam 0.25 MG TAB PO PRN ×3 (00:52→18:49)
[2017-11-04] MEDS: CHLORHEXIDINE GLUCONATE 2 % 1 PACK (2 CLOTHS) TOP SCH ×2 (01:41→19:41)
[2017-11-04] MEDS: traMADol HCL 50 MG TAB PO PRN ×3 (02:10→18:09)
[2017-11-04 04:00] VITALS: BP 161/92; PULSE 104; PULSE 99; RESP 20; TEMP 100.4; O2SAT 93
[2017-11-04] MEDS: ARTIFICIAL TEARS OPTH SOLN 15 ML BTL EACH EYE SCH ×3 (05:16→20:31)
[2017-11-04] MEDS: hydrALAZINE HCL 50 MG TAB PO SCH ×3 (05:16→20:30)
[2017-11-04] MEDS: INSULIN ASPART SUPPLEMENTAL SCALE SQ SCH ×4 (07:45→20:31)
[2017-11-04 08:00] VITALS: BP 155/97; PULSE 106; PULSE 108; RESP 20; TEMP 99.4; O2SAT 91
[2017-11-04] MEDS: CARVEDILOL 6.25 MG TAB PO SCH ×2 (08:47→20:31)
[2017-11-04] MEDS: ENOXAPARIN SODIUM 40 MG/0.4 ML SYRINGE SQ SCH (08:47)
[2017-11-04] MEDS: CHLORHEXIDINE 0.12% (ORAL KIT) 15 ML CUP MT SCH ×2 (08:47→19:40)
[2017-11-04] MEDS: PANTOPRAZOLE SOD 40 MG DELAYED RELEASE TAB PO SCH ×2 (08:47→20:31)
[2017-11-04] MEDS: NYSTATIN 100,000 U/GM PWD 15 GM BTL TOPICAL SCH ×2 (08:48→20:31)
[2017-11-04] MEDS: INSULIN DETEMIR 100 UNITS/ML VIAL SQ SCH ×2 (08:48→20:31)
[2017-11-04] MEDS: SODIUM CHLORIDE 0.9% FLUSH 10 ML FLUSH IV FLUSH SCH ×2 (08:48→20:31)
[2017-11-04 12:00] VITALS: BP 141/92; PULSE 95; PULSE 98; RESP 20; TEMP 97.8; O2SAT 94
[2017-11-04] MEDS: cefTRIAXone INJ 2,000 MG in SODIUM CHLORIDE 0.9% INJ 100 ML IV SCH (12:05)
[2017-11-04 12:25] LABS: ALBUMIN 2.2 GM/DL (3.4-5.0); ALT (GPT) 70 U/L (12-78); AST (GOT) 89 U/L (15-37); BICARBONATE 23.7 MEQ/L (21.0-32.0); BLOOD UREA NITROGEN 6 MG/DL (7-18); CALCIUM 8.1 MG/DL (8.5-10.1); CHLORIDE 106 MEQ/L (98-107); CREATININE 0.84 MG/DL (0.60-1.30); GLOMERULAR FILTRATION RATE 123 ML/MIN (>89); GLUCOSE,RANDOM 173 MG/DL (74-106); SODIUM (NA) 141 MEQ/L (136-145)
[2017-11-04 12:27] LABS: ALKALINE PHOSPHATASE 143 U/L (45-117); TOTAL BILIRUBIN ADULT 0.4 MG/DL (0.2-1.0); TOTAL PROTEIN 6.8 GM/DL (6.4-8.2)
--- NOTE | 2017-11-04 13:43 | HHI.PR ---
Subjective Remarks STILL HAVING SOME FEVERS ON AND OFF DW RN AND PT REPLACE POTASSIUM AM LABS Objective Vitals Vital Signs Date Time Temp Pulse Resp B/P (MAP) Pulse Ox O2 Delivery O2 Flow Rate FiO2 11/04/17 12:00 95 11/04/17 11:00 Nasal Cannula 2.00 21 11/04/17 08:00 99.4 108 20 155/97 (116) 91 11/04/17 08:00 Nasal Cannula 2.00 21 11/04/17 08:00 106 11/04/17 04:04 Nasal Cannula 2.00 11/04/17 04:00 100.4 104 20 161/92 (115) 93 11/04/17 04:00 99 11/04/17 00:00 99.2 99 20 147/96 (113) 93 11/04/17 00:00 95 11/04/17 00:00 Nasal Cannula 2.00 11/03/17 20:00 Nasal Cannula 2.00 11/03/17 20:00 99.9 105 20 142/84 (103) 93 11/03/17 20:00 107 11/03/17 16:35 Nasal Cannula 2.00 11/03/17 16:00 100.0 108 20 149/103 (118) 91 11/03/17 16:00 99 I/O 11/03/17 11/03/17 11/03/17 11/04/17 11/04/17 11/04/17 07:00 15:00 23:00 07:00 15:00 23:00 Intake Total 262 ml 1466 ml 2500 ml Output Total 2400 ml 4000 ml Balance 262 ml -934 ml -1500 ml Intake Oral 480 ml 2500 ml IV Total 262 ml 986 ml Output Urine Total 2400 ml 4000 ml # Bowel Movements 1 0 Result Diagram: 11/02/17 0439 11/04/17 1115 Other Results Laboratory Tests Test 11/01/17 14:10 11/02/17 04:39 11/02/17 15:55 11/02/17 18:54 Vancomycin Level Trough 9.8 MCG/ML 16.2 MCG/ML White Blood Count 15.9 TH/MM3 Red Blood Count 2.94 MIL/MM3 Hemoglobin 8.0 GM/DL Hematocrit 23.4 % Mean Corpuscular Volume 79.5 FL Mean Corpuscular Hemoglobin 27.1 PG Mean Corpuscular Hemoglobin Concent 34.1 % Red Cell Distribution Width 16.8 % Platelet Count 565 TH/MM3 Mean Platelet Volume 9.1 FL Blood Urea Nitrogen 7 MG/DL Creatinine 0.81 MG/DL Random Glucose 114 MG/DL Calcium Level 7.7 MG/DL Magnesium Level 1.6 MG/DL Sodium Level 140 MEQ/L Potassium Level 3.4 MEQ/L Chloride Level 108 MEQ/L Carbon Dioxide Level 21.6 MEQ/L Anion Gap 10 MEQ/L Estimat Glomerular Filtration Rate 128 ML/MIN B-Type Natriuretic Peptide 75 PG/ML Erythrocyte Sedimentation Rate GREATER THAN 140 mm/hr Test 11/03/17 13:04 11/04/17 11:15 Tumor Marker Alpha Fetoprotein 6.9 NG/ML Blood Urea Nitrogen 6 MG/DL Creatinine 0.84 MG/DL Random Glucose 173 MG/DL Total Protein 6.8 GM/DL Albumin 2.2 GM/DL Calcium Level 8.1 MG/DL Alkaline Phosphatase 143 U/L Aspartate Amino Transf (AST/SGOT) 89 U/L Alanine Aminotransferase (ALT/SGPT) 70 U/L Total Bilirubin 0.4 MG/DL Sodium Level 141 MEQ/L Potassium Level 3.3 MEQ/L Chloride Level 106 MEQ/L Carbon Dioxide Level 23.7 MEQ/L Anion Gap 11 MEQ/L Estimat Glomerular Filtration Rate 123 ML/MIN Imaging Last Impressions Abdomen MRI 11/03/17 0000 Signed Impressions: CONCLUSION: 1. Nonspecific heterogeneous signal and enhancement pattern of the liver as de scribed above and not convincingly changed from the prior CT. This is not parti cularly masslike or with organized fluid. A transient phenomenon related to hep atomegaly and/or hepatocellular disease is thought most likely. Hepatic abscess es are considered unlikely. 2. Small spleen and it also has diffusely heterogeneous signal and enhancement . Acute or subacute superimposed on chronic splenic infarcts are considered mos t likely. No significant change from the CT. In addition, no particularly mass like area and also no evidence of organized fluid so splenic abscesses are cons idered less likely. Chest X-Ray 11/01/17 0000 Signed Impressions: CONCLUSION: Diffuse bilateral patchy airspace disease again seen Abdomen/Pelvis CT 10/27/17 0000 Signed Impressions: CONCLUSION: 1. No evidence of retroperitoneal hemorrhage. 2. Bibasilar subsegmental airspace disease and small bilateral effusions. 3. Patchy areas of hypodensity throughout the liver and spleen of uncertain et iology. Considering patient's history a septic vascular embolic process should be considered. 4. Minimal air in the urinary bladder. 5. Developing anasarca. Chest CT 10/25/17 Signed Impressions: CONCLUSION: 1. Multiple bilateral scattered interstitial and airspace infiltrates througho ut both lung yuen suggestive of some type of inflammatory process. 2. Abnormal appearance of the liver. Recommend CT scan of the abdomen with IV contrast for further evaluation. Brain MRI 10/25/17 Signed Impressions: CONCLUSION: 1. Unremarkable MRI examination of the brain. Specifically, no cerebral edema or diffusion abnormality to suggest encephalitis. Head CT 10/24/17 Signed Impressions: CONCLUSION: 1. No acute intracranial abnormality. Gall Bladder Ultrasound 10/23/17 Signed Impressions: CONCLUSION: 1. There is increased echogenicity of the liver suggestive of fatty infiltrati on and/or hepatocellular disease. 2. No evidence of gallstones or biliary tract obstruction. Renal Ultrasound 10/19/17 Signed Impressions: Service Date/Time: Thursday, October 19, 2017 09:46 - CONCLUSION: Normal examination. Alexx Baig MD Objective Remarks GENERAL: Awake alert and oriented 3 talkative and cooperative has multiple tattoos SKIN: Warm and dry. Has multiple tattoos HEAD: Atraumatic. Normocephalic. EYES: Pupils equal and round. No scleral icterus. No injection or drainage. Extraocular muscles intact ENT: No nasal bleeding or discharge. Mucous membranes pink and moist. Tongue is midline NECK: Trachea midline. No JVD. Supple CARDIOVASCULAR: Regular rate and rhythm. S1-S2 no S3 or S4 RESPIRATORY: No accessory muscle use. Clear to auscultation. Breath sounds equal bilaterally. GASTROINTESTINAL: Abdomen soft, non-tender, nondistended. Hepatic and splenic margins not palpable. MUSCULOSKELETAL: Extremities without clubbing, cyanosis, or edema. No obvious deformities. NEUROLOGICAL: Awake and alert. No obvious cranial nerve deficits. Motor grossly within normal limits. Five out of 5 muscle strength in the arms and legs. Normal speech. PSYCHIATRIC: Appropriate mood and affect; insight and judgment normal. Medications and IVs Current Medications Acetaminophen (Tylenol Supp) 650 mg ONCE ONCE RECTAL Last administered on 10/18at 23:00; Start 10/18/17 at 23:00; Stop 10/18/17 at 23:01; Status DC Ketorolac Tromethamine (Toradol Inj) 30 mg ONCE ONCE IV PUSH Last administered on 10/18/17at 23:00; Start 10/18/17 at 23:00; Stop 10/18/17 at 23:01 ; Status DC Insulin Human Regular (NovoLIN R INJ) 6 units ONCE ONCE IV PUSH Last administered on 10/18/17at 22:59; Start 10/18/17 at 23:00; Stop 10/18/17 at 23:01 ; Status DC Cyproheptadine HCl (Periactin Liq) 4 mg ONCE ONCE PO ; Start 10/18/17 at 23:00 ; Stop 10/18/17 at 23:01; Status DC Ceftriaxone Sodium 1000 mg/ Sodium Chloride 100 ml @ 200 mls/hr ONCE ONCE IV Last administered on 10/18/17at 23:34; Start 10/18/17 at 23:30; Stop 10/19/17 at 00:03; Status DC Insulin Human Regular (NovoLIN R INJ) 10 units ONCE ONCE IV PUSH Last administered on 10/18/17at 23:34; Start 10/18/17 at 23:30; Stop 10/18/17 at 23:31 ; Status DC Insulin Human Regular 100 ml @ 0 mls/hr ONCE ONCE IV Last administered on 10/19at 00:00; Start 10/18/17 at 23:30; Stop 10/18/17 at 23:39; Status DC Sodium Chloride 1,000 ml @ 999 mls/hr BOLUS ONCE IV Last administered on 10/19at 00:15; Start 10/19/17 at 00:00; Stop 10/19/17 at 01:00; Status DC Sodium Chloride 1,000 ml @ 999 mls/hr BOLUS ONCE IV Last administered on 10/19at 00:16; Start 10/19/17 at 00:00; Stop 10/19/17 at 01:00; Status DC Sodium Chloride 1,000 ml @ 999 mls/hr BOLUS ONCE IV Last administered on 10/19at 00:16; Start 10/19/17 at 00:00; Stop 10/19/17 at 01:00; Status DC Potassium Chloride/Sodium Chloride 1,000 ml @ 125 mls/hr Q8H IV Last administered on 10/19/17at 00:36; Start 10/19/17 at 00:15; Stop 10/19/17 at 02:29 ; Status DC Lorazepam (Ativan Inj) 1 mg ONCE ONCE IV PUSH Last administered on 10/19/17at 00:35; Start 10/19/17 at 00:15; Stop 10/19/17 at 00:16; Status DC Sodium Chloride 1,000 ml @ 999 mls/hr BOLUS ONCE IV Last administered on 10/19at 00:37; Start 10/19/17 at 00:30; Stop 10/19/17 at 01:30; Status DC Sodium Chloride 1,000 ml @ 999 mls/hr BOLUS ONCE IV Last administered on 10/19at 00:37; Start 10/19/17 at 00:30; Stop 10/19/17 at 01:30; Status DC Potassium Chloride 100 ml @ 50 mls/hr BOLUS ONCE IV Last administered on 10/19at 01:40; Start 10/19/17 at 01:15; Stop 10/19/17 at 03:14; Status DC Sodium Bicarbonate (Sodium Bicarbonate 8.4% Inj) 50 meq STK-MED ONCE .ROUTE ; Start 10/19/17 at 01:19; Stop 10/19/17 at 01:20; Status DC Etomidate (Amidate Inj) 40 mg STK-MED ONCE .ROUTE ; Start 10/19/17 at 01:34; Stop 10/19/17 at 01:35; Status DC Calcium Gluconate (Calcium Gluconate Inj) 1 gm ONCE ONCE IV PUSH ; Start at 01:45; Stop 10/19/17 at 01:46; Status DC Calcium Gluconate (Calcium Gluconate Inj) 1 gm STK-MED ONCE .ROUTE ; Start 10/19 at 01:36; Stop 10/19/17 at 01:37; Status DC Sodium Chloride (NS Flush) 2 ml UNSCH PRN IV FLUSH FLUSH AFTER USING IV ACCESS ; Start 10/19/17 at 02:30 Sodium Chloride (NS Flush) 2 ml BID IV FLUSH Last administered on 11/04/17at 08: 48; Start 10/19/17 at 09:00 Morphine Sulfate (Morphine Inj) 2 mg Q2H PRN IV PUSH PAIN SCALE 6 TO 10 Last administered on 10/25/17at 06:26; Start 10/19/17 at 02:30; Stop 10/25/17 at 09:33 ; Status DC Pantoprazole Sodium (Protonix Inj) 40 mg DAILY IV PUSH ; Start 10/19/17 at 09:00 ; Stop 10/19/17 at 09:00; Status DC Artificial Tears (Tears Naturale Opth Soln) 1 drop TID EACH EYE ; Start at 09:00; Stop 10/19/17 at 09:00; Status DC Ondansetron HCl (Zofran Inj) 4 mg Q6H PRN IV PUSH NAUSEA OR VOMITING; Start at 02:30; Stop 10/19/17 at 02:30; Status DC Albuterol/ Ipratropium (Duoneb Neb) 1 ampule Q6HR NEB INH Last administered on 10/23/17at 03:57; Start 10/19/17 at 04:00; Stop 10/23/17 at 03:59; Status DC Albuterol Sulfate (Albuterol Neb) 2.5 mg Q2HR NEB PRN INH SOB/WHEEZING Last administered on 10/24/17at 08:36; Start 10/19/17 at 02:30 Miscellaneous Information ([facility] [place] [facility] Information) 1 [id number] Last administered on 10/19/17at 02:30; Start 10/19/17 at 02:30 Chlorhexidine Gluconate (Chlorhexidine 2% Cloth) Taper DAILY@04 TOP Last administered on 10/27/17at 04:00; Start 10/19/17 at 04:00; Stop 10/15/18 at 03:59 Chlorhexidine Gluconate (Chlorhexidine 2% Cloth) 3 pack UNSCH PRN TOP HYGIENIC CARE; Start 10/19/17 at 02:30 Senna/Docusate Sodium (Candace-Colace) 1 tab BID PO Last administered on at 20:33; Start 10/19/17 at 09:00; Stop 10/27/17 at 16:20; Status DC Magnesium Hydroxide (Milk Of Magnesia Liq) 30 ml Q12H PRN PO Mild constipation ; Start 10/19/17 at 02:30; Status Future Hold Sennosides (Senokot) 17.2 mg Q12H PRN PO Moderate constipation; Start 10/19/17 at 02:30; Status Future Hold Bisacodyl (Dulcolax Supp) 10 mg DAILY PRN RECTAL SEVERE CONSITIPATION; Start at 02:30 Lactulose (Lactulose Liq) 30 ml DAILY PRN PO SEVERE CONSITIPATION; Start at 02:30; Stop 10/23/17 at 21:17; Status DC Potassium Phosphate 30 mmol/ Sodium Chloride 260 ml @ 43.333 mls/ hr ONCE ONCE IV Last administered on 10/19/17at 03:33; Start 10/19/17 at 02:30; Stop at 08:29; Status DC Potassium Chloride 40 meq/ Sodium Chloride 38.5 meq/Sterile Water 1,029.625 ml @ 150 mls/hr Q6H52M IV Last administered on 10/19/17at 10:27; Start 10/19/17 at 02:45; Stop 10/19/17 at 14:22; Status DC Ondansetron HCl (Zofran Odt) 4 mg Q6H PRN PO NAUSEA OR VOMITING Last administered on 10/29/17at 23:44; Start 10/19/17 at 02:30 Pantoprazole Sodium (Protonix Inj) 40 mg BID IV PUSH Last administered on at 08:37; Start 10/19/17 at 09:00; Stop 10/27/17 at 16:20; Status DC Artificial Tears (Tears Naturale Opth Soln) 1 drop Q8HR EACH EYE Last administered on 11/04/17 05:16; Start 10/19/17 at 06:00 Succinylcholine Chloride (Quelicin Inj) 100 mg ONCE ONCE IV PUSH Last administered on 10/19/17at 02:59; Start 10/19/17 at 03:00; Stop 10/19/17 at 03:03 ; Status DC Chlorhexidine Gluconate (Peridex 0.12% Liq) 15 ml BID@08,20 MT Last administered on 11/04/17at 08:47; Start 10/19/17 at 08:00 Propofol 100 ml @ 3.24 mls/hr TITRATE PRN IV SEDATION; Start 10/19/17 at 03:00 ; Stop 10/23/17 at 08:34; Status DC Fentanyl Citrate 250 ml @ 5 mls/hr TITRATE PRN IV SEDATION; Start 10/19/17 at 03:00; Stop 10/19/17 at 08:22; Status DC Etomidate (Amidate Inj) 10 mg ONCE ONCE IV PUSH Last administered on at 02:58; Start 10/19/17 at 03:00; Stop 10/19/17 at 03:03; Status DC Sodium Bicarbonate (Sodium Bicarbonate 8.4% Inj) 50 meq ONCE ONCE IV PUSH Last administered on 10/19/17at 03:00; Start 10/19/17 at 03:00; Stop 10/19/17 at 03:03; Status DC Sodium Chloride 1,000 ml @ 999 mls/hr BOLUS ONCE IV Last administered on 10/19at 02:58; Start 10/19/17 at 03:00; Stop 10/19/17 at 04:00; Status DC Norepinephrine Bitartrate 4 mg/ Sodium Chloride 250 ml @ 7.5 mls/hr TITRATE PRN IV Blood pressure management Last administered on 10/20/17at 06:30; Start at 03:30; Stop 10/23/17 at 08:34; Status DC Terbutaline Sulfate (Brethine Inj) 1 mg UNSCH PRN SQ For Extravasation; Start 10/19/17 at 03:30; Stop 10/19/17 at 08:22; Status DC Phenylephrine HCl (Neosynephrine Inj) 10 mg STK-MED ONCE .ROUTE ; Start at 03:29; Stop 10/19/17 at 03:30; Status DC Acetaminophen 100 ml @ 400 mls/hr Q8H PRN IV fever Last administered on at 10:54; Start 10/19/17 at 03:30 Phenylephrine HCl (Neosynephrine Inj) 10 mg STK-MED ONCE .ROUTE ; Start at 03:30; Stop 10/19/17 at 03:31; Status DC Phenylephrine HCl (Neosynephrine Inj) 10 mg STK-MED ONCE .ROUTE ; Start at 03:34; Stop 10/19/17 at 03:35; Status DC Pharmacy Profile Note 0 ml @ 0 mls/hr UNSCH OTHER ; Start 10/19/17 at 04:00; Stop 10/21/17 at 16:48; Status DC Cefepime HCl 2000 mg/Sodium Chloride 100 ml @ 200 mls/hr Q12H IV Last administered on 10/25/17at 06:26; Start 10/19/17 at 04:00; Stop 10/25/17 at 05:00 ; Status DC Metronidazole 100 ml @ 100 mls/hr Q6H IV Last administered on 10/25/17at 06:25 ; Start 10/19/17 at 04:00; Stop 10/25/17 at 08:11; Status DC Vancomycin HCl 1500 mg/Sodium Chloride 515 ml @ 257.5 mls/ hr ONCE ONCE IV Last administered on 10/19/17at 05:28; Start 10/19/17 at 05:00; Stop 10/19/17 at 06:59; Status DC Lactulose (Lactulose Liq) 30 ml BID PO Last administered on 10/21/17at 09:45; Start 10/19/17 at 09:00; Stop 10/23/17 at 10:50; Status DC Dextrose (D50w (Vial) Inj) 50 ml UNSCH PRN IV PUSH HYPOGLYCEMIA-SEE COMMENTS; Start 10/19/17 at 04:15; Stop 10/19/17 at 23:25; Status DC Glucagon (Glucagon Inj) 1 mg UNSCH PRN OTHER HYPOGLYCEMIA-SEE COMMENTS; Start 10/19/17 at 04:15; Stop 10/31/17 at 15:36; Status DC Potassium Chloride 100 ml @ 25 mls/hr Q4H IV Last administered on 10/19/17at 10 :27; Start 10/19/17 at 05:00; Stop 10/19/17 at 12:59; Status DC Potassium Bicarb/ Potassium Chloride (K-Lyte Cl Eff) 50 meq STAT ONCE NG Last administered on 10/19/17at 09:19; Start 10/19/17 at 07:45; Stop 10/19/17 at 07:46; Status DC Phenylephrine HCl (Neosynephrine Inj) 10 mg STK-MED ONCE .ROUTE ; Start at 07:39; Stop 10/19/17 at 07:40; Status DC Vasopressin 40 units/Dextrose 100 ml @ 1.5 mls/hr TITRATE PRN IV Blood Pressure Management Last administered on 10/20/17at 15:58; Start 10/19/17 at 07: 45; Stop 10/21/17 at 16:48; Status DC Phenylephrine HCl 40 mg/Dextrose 500 ml @ 30 mls/hr TITRATE PRN IV Blood Pressure Management Last administered on 10/20/17at 01:55; Start 10/19/17 at 07: 45; Stop 10/21/17 at 16:48; Status DC Terbutaline Sulfate (Brethine Inj) 1 mg UNSCH PRN SQ FOR EXTRAVASATION PROTOCOL ; Start 10/19/17 at 07:45 Fentanyl Citrate 250 ml @ 5 mls/hr TITRATE PRN IV SEDATION Last administered on 10/23/17at 03:13; Start 10/19/17 at 08:15; Stop 10/23/17 at 08:34; Status DC Midazolam HCl 100 ml @ 2 mls/hr TITRATE PRN IV SEDATION; Start 10/19/17 at 08: 15; Stop 10/19/17 at 13:47; Status DC Sodium Bicarbonate (Sodium Bicarbonate 8.4% Inj) 50 meq ONCE ONCE IV PUSH Last administered on 10/19/17at 09:55; Start 10/19/17 at 09:45; Stop 10/19/17 at 09:46; Status DC Calcium Chloride (Calcium Chloride Inj) 1 gm [employer] ONCE .ROUTE Last administered on 10/19/17at 09:43; Start 10/19/17 at 09:43; Stop 10/19/17 at 09:44 ; Status DC Potassium Bicarb/ Potassium Chloride (K-Lyte Cl Eff) 50 meq ONCE ONCE PO Last administered on 10/19/17at 12:15; Start 10/19/17 at 12:15; Stop 10/19/17 at 12:21; Status DC Potassium Chloride 100 ml @ 25 mls/hr ONCE IV ; Start 10/19/17 at 13:00; Stop 10/20/17 at 16:59; Status DC Insulin Detemir (Levemir Inj) 10 units Q12HR SQ Last administered on 10/19/17at 20:02; Start 10/19/17 at 13:15; Stop 10/20/17 at 01:40; Status DC Sodium Bicarbonate 150 meq/Potassium Chloride 80 meq/ Sterile Water 1,040 ml @ 150 mls/hr Q6H56M IV Last administered on 10/19/17at 14:00; Start 10/19/17 at 14 :00; Stop 10/19/17 at 14:22; Status DC Midazolam HCl 50 ml @ 2 mls/hr TITRATE PRN IV SEDATION Last administered on at 10:49; Start 10/19/17 at 14:00; Stop 10/21/17 at 16:48; Status DC Sodium Bicarbonate 100 meq/Potassium Chloride 60 meq/ Sterile Water 1,000 ml @ 150 mls/hr Q6H40M IV ; Start 10/19/17 at 15:00; Stop 10/19/17 at 15:08; Status DC Sodium Bicarbonate 100 meq/Sterile Water 1,000 ml @ 150 mls/hr Q6H40M IV Last administered on 10/20/17at 12:17; Start 10/20/17 at 16:00; Stop 10/20/17 at 16:00 ; Status DC Calcium Chloride (Calcium Chloride Inj) 1 gm ONCE IV PUSH ; Start 10/19/17 at 16 :15; Stop 10/19/17 at 17:00; Status DC Sodium Bicarbonate (Sodium Bicarbonate 8.4% Inj) 50 meq ONCE ONCE IV PUSH Last administered on 10/19/17at 17:29; Start 10/19/17 at 17:30; Stop 10/19/17 at 17:31; Status DC Midazolam HCl (Versed Inj) 5 mg STK-MED ONCE .ROUTE Last administered on at 20:21; Start 10/19/17 at 20:21; Stop 10/19/17 at 20:22; Status DC Sodium Bicarbonate (Sodium Bicarbonate 8.4% Inj) 100 meq ONCE ONCE IV PUSH Last administered on 10/19/17at 23:24; Start 10/19/17 at 22:00; Stop 10/19/17 at 22:34; Status DC Insulin Aspart (NovoLOG SUPPLEMENTAL SCALE) 1 Q3H SQ ; Start 10/19/17 at 22:00; Stop 10/19/17 at 23:25; Status DC Insulin Human Regular 100 units/ Sodium Chloride 100 ml @ 0.5 mls/hr TITRATE PRN IV Blood Glucose Control Last administered on 10/19/17at 23:54; Start at 23:30; Stop 10/20/17 at 01:40; Status DC Dextrose (D50w (Vial) Inj) 50 ml UNSCH PRN IV PUSH SEE LABEL COMMENTS Last administered on 10/23/17at 05:24; Start 10/19/17 at 23:30; Stop 10/31/17 at 15:36 ; Status DC Miscellaneous Information 1 ONCE ONCE OTHER Last administered on 10/19/17at 23: 30; Start 10/19/17 at 23:30; Stop 10/19/17 at 23:31; Status DC Insulin Human Regular 100 units/ Sodium Chloride 100 ml @ 2 mls/hr TITRATE PRN IV Blood Glucose Control Last administered on 10/23/17at 04:08; Start 10/20/17 at 01:45; Stop 10/24/17 at 20:50; Status DC Water (Free Water) VOLUME: 200 ML Q6HR G-TUBE Last administered on 10/21/17at 12 :00; Start 10/20/17 at 12:00; Stop 10/21/17 at 16:48; Status DC Vancomycin HCl 2000 mg/Sodium Chloride 520 ml @ 257.5 mls/ hr ONCE ONCE IV Last administered on 10/20/17at 13:50; Start 10/20/17 at 14:00; Stop 10/20/17 at 16:01; Status DC Potassium Chloride 40 meq/ Sodium Chloride 520 ml @ 130 mls/hr ONCE ONCE IV- CENTRAL Last administered on 10/20/17at 13:49; Start 10/20/17 at 13:00; Stop at 16:59; Status DC Sodium Chloride 38.5 meq/Sterile Water 1,009.625 ml @ 150 mls/hr Q6H44M IV Last administered on 10/21/17at 09:05; Start 10/20/17 at 14:00; Stop 10/21/17 at 13:50; Status DC Vancomycin HCl 2000 mg/Sodium Chloride 520 ml @ 257.5 mls/ hr ONCE ONCE IV Last administered on 10/21/17at 14:15; Start 10/21/17 at 14:00; Stop 10/21/17 at 16:01; Status DC Lactated Ringer's 1,000 ml @ 150 mls/hr Q6H40M IV Last administered on at 09:09; Start 10/21/17 at 14:00; Stop 10/22/17 at 10:58; Status DC Potassium Bicarb/ Potassium Chloride (K-Lyte Cl Eff) 25 meq ONCE ONCE NG Last administered on 10/21/17at 14:13; Start 10/21/17 at 14:00; Stop 10/21/17 at 14:01; Status DC Potassium Chloride 100 ml @ 50 mls/hr Q2H IV Last administered on 10/21/17at 15 :28; Start 10/21/17 at 14:00; Stop 10/21/17 at 17:59; Status DC Water (Free Water) 300 ml Q4HR G-TUBE Last administered on 10/24/17at 08:00; Start 10/21/17 at 20:00; Stop 10/24/17 at 09:07; Status DC Lactulose (Lactulose Liq) 30 ml QID PO Last administered on 10/23/17at 09:24; Start 10/21/17 at 18:00; Stop 10/23/17 at 16:40; Status DC Chlorothiazide Sodium (Diuril Inj) 250 mg ONCE ONCE IV Last administered on at 12:42; Start 10/22/17 at 12:15; Stop 10/22/17 at 12:16; Status DC Sodium Chloride 38.5 meq/Sterile Water 1,009.625 ml @ 50 mls/hr [id number] IV Last administered on 10/25/17at 21:42; Start 10/22/17 at 14:00; Stop 10/26/17 at 14:23; Status DC Amlodipine Besylate (Norvasc) 5 mg DAILY PO Last administered on 10/25/17at 08: 22; Start 10/23/17 at 09:00; Stop 10/25/17 at 09:35; Status DC Chlorothiazide Sodium (Diuril Inj) 500 mg ONCE ONCE IV Last administered on at 11:39; Start 10/23/17 at 10:30; Stop 10/23/17 at 10:38; Status DC Midazolam HCl (Versed Inj) 5 mg STK-MED ONCE .ROUTE ; Start 10/23/17 at 11:57; Stop 10/23/17 at 11:58; Status DC Midazolam HCl (Versed Inj) 4 mg NOW ONCE IV Last administered on 10/23/17at 15: 20; Start 10/23/17 at 15:15; Stop 10/23/17 at 15:16; Status DC Fentanyl Citrate 250 ml @ 5 mls/hr TITRATE PRN IV SEDATION Last administered on 10/24/17at 01:34; Start 10/23/17 at 18:00; Stop 10/24/17 at 17:39; Status DC Hydralazine HCl (Apresoline Inj) 20 mg Q4H PRN IV PUSH SBP>160, DBP>90; Start 10/23/17 at 20:45; Status UNV Lactulose (Lactulose Liq) 30 ml DAILY PRN PO SEVERE CONSITIPATION; Start at 21:30; Status Future Hold Water (Free Water) 400 ml Q4HR G-TUBE Last administered on 10/24/17at 12:00; Start 10/24/17 at 12:00; Stop 10/24/17 at 17:39; Status DC Chlorothiazide Sodium (Diuril Inj) 500 mg ONCE ONCE IV Last administered on at 10:27; Start 10/24/17 at 10:00; Stop 10/24/17 at 10:03; Status DC Dextrose (D50w (Vial) Inj) 50 ml UNSCH PRN IV PUSH HYPOGLYCEMIA-SEE COMMENTS; Start 10/24/17 at 21:00 Glucagon (Glucagon Inj) 1 mg UNSCH PRN OTHER HYPOGLYCEMIA-SEE COMMENTS; Start 10/24/17 at 21:00 Insulin Aspart (NovoLOG SUPPLEMENTAL SCALE) 1 Q4HR SQ Last administered on 10/27at 08:37; Start 10/24/17 at 21:00; Stop 10/27/17 at 16:20; Status DC Cefepime HCl 2000 mg/Sodium Chloride 100 ml @ 200 mls/hr Q12H IV Last administered on 10/31/17at 11:45; Start 10/25/17 at 09:00; Stop 10/31/17 at 11:54 ; Status DC Vancomycin HCl 1000 mg/Sodium Chloride 250 ml @ 250 mls/hr ONCE ONCE IV Last administered on 10/25/17at 10:23; Start 10/25/17 at 08:15; Stop 10/25/17 at 09:14 ; Status DC Insulin Detemir (Levemir Inj) 5 units Q12HR SQ Last administered on 11/04/17at 08 :48; Start 10/25/17 at 10:00 Amlodipine Besylate (Norvasc) 10 mg DAILY PO Last administered on 11/04/17at 08: 47; Start 10/26/17 at 09:00 Carvedilol (Coreg) 3.125 mg Q12HR PO Last administered on 11/02/17at 09:21; Start 10/25/17 at 09:45; Stop 11/02/17 at 11:42; Status DC Albuterol/ Ipratropium (Duoneb Neb) 1 ampule Q8HR NEB NEB Last administered on 10/29/17at 15:57; Start 10/25/17 at 16:00; Stop 10/29/17 at 15:59; Status DC Chlorothiazide Sodium (Diuril Inj) 500 mg ONCE ONCE IV Last administered on at 13:17; Start 10/25/17 at 10:45; Stop 10/25/17 at 10:55; Status DC Calcium Chloride (Calcium Chloride Inj) 1 gm STK-MED ONCE IV ; Start 10/19/17 at 05:00; Stop 10/25/17 at 22:13; Status DC Sodium Bicarbonate (Sodium Bicarbonate 8.4% Inj) 50 meq STK-MED ONCE IV ; Start 10/19/17 at 05:00; Stop 10/25/17 at 22:13; Status DC Furosemide (Lasix Inj) 40 mg ONCE ONCE IV PUSH Last administered on 10/26/17at 12:38; Start 10/26/17 at 08:00; Stop 10/26/17 at 08:07; Status DC Enoxaparin Sodium (Lovenox Inj) 40 mg Q24H SQ Last administered on 11/04/17at 08: 47; Start 10/26/17 at 08:00 Potassium Chloride 100 ml @ 50 mls/hr Q2H IV Last administered on 10/26/17at 12 :39; Start 10/26/17 at 10:00; Stop 10/26/17 at 13:59; Status DC Potassium Bicarb/ Potassium Chloride (K-Lyte Cl Eff) 25 meq ONCE ONCE PO Last administered on 10/26/17at 10:45; Start 10/26/17 at 09:15; Stop 10/26/17 at 09:21; Status DC Potassium Chloride 100 ml @ 50 mls/hr Q2H PRN IV For Potassium 2.8 - 3.2 mEq/L ; Start 10/27/17 at 05:15; Stop 10/28/17 at 07:50; Status DC Potassium Chloride 100 ml @ 50 mls/hr Q2H PRN IV For Potassium 2.8 - 3.2 mEq/ L Last administered on 10/27/17at 11:33; Start 10/27/17 at 05:15; Stop 10/28/17 at 07:50; Status DC Potassium Bicarb/ Potassium Chloride (K-Lyte Cl Eff) 50 meq UNSCH PRN PO For Potassium 3.3 - 3.5 mEq/L; Start 10/27/17 at 05:15; Stop 10/28/17 at 07:50; Status DC Potassium Chloride 100 ml @ 25 mls/hr UNSCH PRN IV For Potassium 3.3 - 3.5 mEq /L; Start 10/27/17 at 05:15; Stop 10/28/17 at 07:50; Status DC Potassium Chloride 100 ml @ 50 mls/hr Q2H PRN IV For Potassium 3.3 - 3.5 mEq/L ; Start 10/27/17 at 05:15; Stop 10/28/17 at 07:50; Status DC Magnesium Sulfate 4 gm/Sodium Chloride 100 ml @ 50 mls/hr UNSCH PRN IV For Magnesium 0.9 - 1.1 mg/dL; Start 10/27/17 at 05:15; Stop 10/28/17 at 07:50; Status DC Magnesium Oxide (Mag-Ox) 800 mg UNSCH PRN PO For Magnesium 1.2 - 1.6 mg/dL; Start 10/27/17 at 05:15; Stop 10/28/17 at 07:50; Status DC Magnesium Sulfate 2 gm/Sodium Chloride 100 ml @ 50 mls/hr UNSCH PRN IV For Magnesium 1.2 - 1.6 mg/dL; Start 10/27/17 at 05:15; Stop 10/28/17 at 07:50; Status DC Potassium Phosphate (K-Phos) 2,000 mg Q4H PRN PO For Phosphorus < 2.5 mg/dL; Start 10/27/17 at 05:15; Stop 10/28/17 at 07:50; Status DC Sodium Phosphate 30 mmol/Sodium Chloride 250 ml @ 42 mls/hr UNSCH PRN IV For Phosphorus < 2.5 mg/dL Last administered on 10/27/17at 11:32; Start 10/27/17 at 05:15; Stop 10/28/17 at 07:50; Status DC Potassium Phosphate (K-Phos) 2,000 mg UNSCH PRN PO/TUBE SEE LABEL COMMENTS; Start 10/27/17 at 05:15; Stop 10/28/17 at 07:50; Status DC Potassium Phosphate 30 mmol/ Sodium Chloride 260 ml @ 42 mls/hr UNSCH PRN IV SEE LABEL COMMENTS; Start 10/27/17 at 05:15; Stop 10/28/17 at 07:50; Status DC Pantoprazole Sodium (Protonix) 40 mg Q12HR PO Last administered on 11/04/17at 08: 47; Start 10/27/17 at 21:00 Hydralazine HCl (Apresoline) 50 mg Q8HR PO Last administered on 11/04/17at 05:16 ; Start 10/27/17 at 22:00 Insulin Aspart (NovoLOG SUPPLEMENTAL SCALE) 1 ACHS SLIDING SCALE SQ Last administered on 11/04/17at 12:04; Start 10/27/17 at 17:00 Nystatin (Mycostatin Powder) 1 applic Q12HR TOPICAL Last administered on at 08:48; Start 10/27/17 at 21:00 Diatrizoate Meglum/ Diatrizoate Sod ( Gastroview Liq) 18 ml ONCE ONCE PO Last administered on 10/27/17at 20:02; Start 10/27/17 at 17:10; Stop 10/27/17 at 17:37; Status DC Potassium Chloride (KCl) 40 meq ONCE ONCE PO Last administered on 10/28/17at 05 :34; Start 10/28/17 at 05:30; Stop 10/28/17 at 05:31; Status DC Potassium Chloride (KCl) 30 meq ONCE ONCE PO Last administered on 10/28/17at 11 :56; Start 10/28/17 at 10:45; Stop 10/28/17 at 10:46; Status DC Potassium Chloride (KCl) 30 meq ONCE ONCE PO Last administered on 10/28/17at 14 :31; Start 10/28/17 at 15:00; Stop 10/28/17 at 15:01; Status DC Metronidazole (Flagyl) 500 mg Q8HR PO Last administered on 11/01/17at 05:08; Start 10/29/17 at 14:00; Stop 11/01/17 at 09:21; Status DC Potassium Chloride (KCl) 30 meq ONCE ONCE PO Last administered on 10/29/17at 11 :48; Start 10/29/17 at 10:15; Stop 10/29/17 at 10:21; Status DC Potassium Chloride (KCl) 30 meq ONCE ONCE PO Last administered on 10/29/17at 14 :05; Start 10/29/17 at 14:00; Stop 10/29/17 at 14:01; Status DC Potassium Chloride (KCl) 30 meq ONCE ONCE PO Last administered on 10/29/17at 18 :26; Start 10/29/17 at 18:00; Stop 10/29/17 at 18:01; Status DC Tramadol HCl (Ultram) 50 mg Q8H PRN PO PAIN 5-10 Last administered on 11/04/17at 09:37; Start 10/29/17 at 13:15 Vancomycin HCl 1000 mg/Sodium Chloride 250 ml @ 250 mls/hr ONCE ONCE IV Last administered on 10/30/17at 15:33; Start 10/30/17 at 09:45; Stop 10/30/17 at 10:44 ; Status DC Potassium Chloride (KCl) 40 meq ONCE ONCE PO Last administered on 10/30/17at 12 :04; Start 10/30/17 at 09:45; Stop 10/30/17 at 09:46; Status DC Potassium Chloride (KCl) 40 meq ONCE ONCE PO Last administered on 10/30/17at 15 :30; Start 10/30/17 at 14:00; Stop 10/30/17 at 14:05; Status DC Potassium Chloride (KCl) 40 meq ONCE ONCE PO Last administered on 10/31/17at 11 :16; Start 10/31/17 at 13:00; Stop 10/31/17 at 13:01; Status DC Potassium Chloride (KCl) 40 meq ONCE ONCE PO Last administered on 10/31/17at 16 :25; Start 10/31/17 at 17:00; Stop 10/31/17 at 17:01; Status DC Pharmacy Profile Note 0 ml @ 0 mls/hr UNSCH OTHER ; Start 10/31/17 at 12:00 Ceftriaxone Sodium 2000 mg/ Sodium Chloride 100 ml @ 200 mls/hr Q24H IV Last administered on 11/04/17at 12:05; Start 10/31/17 at 13:00 Vancomycin HCl 1500 mg/Sodium Chloride 515 ml @ 257.5 mls/ hr Q12H IV Last administered on 11/01/17at 15:31; Start 10/31/17 at 15:00; Stop 11/01/17 at 17:55 ; Status DC Miscellaneous Information ([facility] [place] [facility] Ordered Lab Info) SPECIFIC LAB TO BE HECTOR... ONCE ONCE .XX ; Start 11/01/17 at 14:45; Stop 11/01/17 at 14:46; Status DC Magnesium Sulfate/ Dextrose 100 ml @ 100 mls/hr ONCE ONCE IV Last administered on 10/31/17at 15:29; Start 10/31/17 at 15:00; Stop 10/31/17 at 15:59 ; Status DC Potassium Chloride (KCl Powder) 40 meq Q12H PO Last administered on 11/02/17at 01 :04; Start 11/01/17 at 14:30; Stop 11/02/17 at 02:31; Status DC Magnesium Sulfate/ Dextrose 100 ml @ 100 mls/hr Q1H IV ; Start 11/01/17 at 15: 00; Stop 11/01/17 at 15:49; Status DC Magnesium Sulfate/ Dextrose 100 ml @ 100 mls/hr Q1H IV Last administered on at 21:15; Start 11/01/17 at 19:00; Stop 11/01/17 at 20:59; Status DC Vancomycin HCl 1150 mg/Sodium Chloride 261.5 ml @ 250 mls/hr Q8H IV Last administered on 11/04/17at 08:46; Start 11/02/17 at 00:00 Miscellaneous Information ([facility] [place] [facility] Ordered Lab Info) SPECIFIC LAB TO BE DRAWN: VANCO TROUGH DATE TO... ONCE ONCE .XX ; Start 11/02/17 at 15:45; Stop 11/02/17 at 15:46; Status DC Carvedilol (Coreg) 3.125 mg ONCE ONCE PO Last administered on 11/02/17at 13:44; Start 11/02/17 at 12:00; Stop 11/02/17 at 12:01; Status DC Carvedilol (Coreg) 6.25 mg Q12HR PO Last administered on 11/04/17at 08:47; Start 11/02/17 at 21:00 Alprazolam (Xanax) 0.25 mg Q6HR PRN PO anxiety Last administered on 11/04/17at 08 :46; Start 11/03/17 at 12:30 Gadodiamide (Omniscan Pf Inj) 20 ml STK-MED ONCE IVCONTRAST Last administered on 11/03/17at 13:45; Start 11/03/17 at 13:45; Stop 11/03/17 at 13:46; Status DC Acetaminophen (Tylenol) 325 mg Q4H PRN PO Fever > 100.4 Last administered on 11/03/17at 18:58; Start 11/03/17 at 18:45 Date of Insertion: October 19, 2017 A/P Problem List: (1) Acute respiratory failure ICD Code: J96.00 - Acute respiratory failure, unspecified whether with hypoxia or hypercapnia (2) Acute encephalopathy ICD Code: G93.40 - Encephalopathy, unspecified Status: Acute (3) Normocytic anemia ICD Code: D64.9 - Anemia, unspecified (4) Lactic acidosis ICD Code: E87.2 - Acidosis Status: Acute (5) Hypoalbuminemia ICD Code: E88.09 - Other disorders of plasma-protein metabolism, not elsewhere classified (6) Hypophosphatemia ICD Code: E83.39 - Other disorders of phosphorus metabolism Status: Acute (7) Hypokalemia ICD Code: E87.6 - Hypokalemia Status: Acute (8) Hypermagnesemia ICD Code: E83.41 - Hypermagnesemia (9) Acute kidney injury ICD Code: N17.9 - Acute kidney failure, unspecified Status: Acute (10) Leukocytosis ICD Code: D72.829 - Elevated white blood cell count, unspecified Status: Acute (11) Hyponatremia ICD Code: E87.1 - Hypo-osmolality and hyponatremia Status: Acute (12) Hypertension ICD Code: I10 - Essential (primary) hypertension (13) Pyrexia ICD Code: R50.9 - Fever, unspecified Status: Acute (14) Depression ICD Code: F32.9 - Major depressive disorder, single episode, unspecified (15) Ketoacidosis due to secondary diabetes ICD Code: E13.10 - Other specified diabetes mellitus with ketoacidosis without coma Status: Acute (16) BMI 37.0-37.9, adult ICD Code: Z68.37 - Body mass index (BMI) 37.0-37.9, adult Status: Acute Assessment and Plan Endocarditis, sepsis, fevers Patient has multiple embolic lesions, SHASHI shows aortic valve vegetation 0.7 x 0.8 cm Patient continues to show low-grade fevers Awaiting slow-growing cultures from microbiology Infectious disease recommends staying with Rocephin and vancomycin for now If fevers persist consider HACEK work up and addition of doxycycline for expanded coverage if ID agrees (for culture negative endocarditis) Appreciate infectious disease consult Appreciate cardiology workup Hypertension Continue Norvasc, Coreg,and hydralazine. Anxiety Xanax added Acute hypoxic and hypercarbic respiratory failure Extubated 10/24/2017, doing well on nasal cannula oxygen Pulmonology consulted for abnormalities on imaging Upper GI bleed By patient history he vomited blood with some clots 2 weeks prior to admission Gastroenterology consulted Continue pantoprazole Acute hyperglycemic state Continue sliding-scale insulin with Accu-Cheks Continue Levemir 5 U q12h, hemoglobin A1c 13. Diabetic diet Tinea cruris Continue nystatin Hypokalemia will replace DVT prophylaxis Lovenox Discharge Planning Pending clearance by infectious disease and others Problem Qualifiers (1) Acute respiratory failure: Qualified Codes: J96.01 - Acute respiratory failure with hypoxia; J96.02 - Acute respiratory failure with hypercapnia (2) Pyrexia: Qualified Codes: R50.9 - Fever, unspecified (3) Depression: Qualified Codes: F32.9 - Major depressive disorder, single episode, unspecified Tramaine Navarro DO Nov 04, 2017 13:43
[2017-11-04] MEDS ORDERED: POTASSIUM BICARBONATE 25 MEQ EFFERVESCENT TAB PO ONE (14:00)
--- NOTE | 2017-11-04 14:37 | HHI.GIFU ---
Subjective Remarks Pt resting in bed Continued mid abdominal pain Denies nausea, vomiting Tolerating regular diet Soft BMs (Maylin Almonte) Objective Vitals I&O Vital Signs Date Time Temp Pulse Resp B/P (MAP) Pulse Ox O2 Delivery O2 Flow Rate FiO2 11/04/17 12:00 95 11/04/17 11:00 Nasal Cannula 2.00 21 11/04/17 08:00 99.4 108 20 155/97 (116) 91 11/04/17 08:00 Nasal Cannula 2.00 21 11/04/17 08:00 106 11/04/17 04:04 Nasal Cannula 2.00 11/04/17 04:00 100.4 104 20 161/92 (115) 93 11/04/17 04:00 99 11/04/17 00:00 99.2 99 20 147/96 (113) 93 11/04/17 00:00 95 11/04/17 00:00 Nasal Cannula 2.00 11/03/17 20:00 Nasal Cannula 2.00 11/03/17 20:00 99.9 105 20 142/84 (103) 93 11/03/17 20:00 107 11/03/17 16:35 Nasal Cannula 2.00 11/03/17 16:00 100.0 108 20 149/103 (118) 91 11/03/17 16:00 99 I/O 11/03/17 11/03/17 11/03/17 11/04/17 11/04/17 11/04/17 07:00 15:00 23:00 07:00 15:00 23:00 Intake Total 262 ml 1466 ml 2500 ml Output Total 2400 ml 4000 ml Balance 262 ml -934 ml -1500 ml Intake Oral 480 ml 2500 ml IV Total 262 ml 986 ml Output Urine Total 2400 ml 4000 ml # Bowel Movements 1 0 Laboratory Laboratory Tests Test 11/04/17 11:15 Blood Urea Nitrogen 6 Creatinine 0.84 Random Glucose 173 Total Protein 6.8 Albumin 2.2 Calcium Level 8.1 Alkaline Phosphatase 143 Aspartate Amino Transf (AST/SGOT) 89 Alanine Aminotransferase (ALT/SGPT) 70 Total Bilirubin 0.4 Sodium Level 141 Potassium Level 3.3 Chloride Level 106 Carbon Dioxide Level 23.7 Anion Gap 11 Estimat Glomerular Filtration Rate 123 Date/Time Source Procedure Growth Status 10/31/17 13:28 Blood Peripheral Aerobic Blood Culture - Preliminary NO GROWTH IN 4 DAYS Resulted 10/31/17 13:28 Blood Peripheral Anaerobic Blood Culture - Preliminary NO GROWTH IN 4 DAYS Resulted 10/24/17 09:40 Cerebral Spinal Fluid Lumbar Puncture Acid Fast Stain - Final NO ACID FAST BACILLI SEEN Resulted 10/24/17 09:40 Cerebral Spinal Fluid Lumbar Puncture Mycobacterial Culture - Preliminary NO GROWTH IN 1 WEEK Resulted 10/22/17 18:15 Sputum Endotracheal Gram Stain - Final Complete 10/22/17 18:15 Sputum Endotracheal Sputum Culture - Final HEAVY GROWTH NORMAL RESPIRATORY SAAD Complete 10/18/17 00:00 Urine Catheterized Urine Legionella Antigen - Final PRESUMPTIVE NEGATIVE FOR LEGIONELLA P... Complete 10/18/17 00:00 Urine Catheterized Urine Streptococcus pneumoniae Antigen (M - Final PRESUMPTIVE NEGATIVE FOR STREPTOCOCCU... Complete Imaging Last Impressions Abdomen MRI 11/03/17 Signed Impressions: CONCLUSION: 1. Nonspecific heterogeneous signal and enhancement pattern of the liver as de scribed above and not convincingly changed from the prior CT. This is not parti cularly masslike or with organized fluid. A transient phenomenon related to hep atomegaly and/or hepatocellular disease is thought most likely. Hepatic abscess es are considered unlikely. 2. Small spleen and it also has diffusely heterogeneous signal and enhancement . Acute or subacute superimposed on chronic splenic infarcts are considered mos t likely. No significant change from the CT. In addition, no particularly mass like area and also no evidence of organized fluid so splenic abscesses are cons idered less likely. Chest X-Ray 11/01/17 Signed Impressions: CONCLUSION: Diffuse bilateral patchy airspace disease again seen Abdomen/Pelvis CT 10/27/17 Signed Impressions: CONCLUSION: 1. No evidence of retroperitoneal hemorrhage. 2. Bibasilar subsegmental airspace disease and small bilateral effusions. 3. Patchy areas of hypodensity throughout the liver and spleen of uncertain et iology. Considering patient's history a septic vascular embolic process should be considered. 4. Minimal air in the urinary bladder. 5. Developing anasarca. Chest CT 10/25/17 Signed Impressions: CONCLUSION: 1. Multiple bilateral scattered interstitial and airspace infiltrates througho ut both lung yuen suggestive of some type of inflammatory process. 2. Abnormal appearance of the liver. Recommend CT scan of the abdomen with IV contrast for further evaluation. Brain MRI 10/25/17 Signed Impressions: CONCLUSION: 1. Unremarkable MRI examination of the brain. Specifically, no cerebral edema or diffusion abnormality to suggest encephalitis. Head CT 10/24/17 Signed Impressions: CONCLUSION: 1. No acute intracranial abnormality. Gall Bladder Ultrasound 10/23/17 Signed Impressions: CONCLUSION: 1. There is increased echogenicity of the liver suggestive of fatty infiltrati on and/or hepatocellular disease. 2. No evidence of gallstones or biliary tract obstruction. Renal Ultrasound 10/19/17 Signed Impressions: Service Date/Time: Thursday, October 19, 2017 09:46 - CONCLUSION: Normal examination. Alexx Baig MD Physical Exam HEENT: Normocephalic; atraumatic CHEST: Even/unlabored CARDIAC: RRR ABDOMEN: Soft, nondistended, mid abdominal tenderness, bowel sounds active EXTREMITIES: No clubbing, cyanosis, or edema. SKIN: Normal; no rash; no jaundice. 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 (Maylin Almonte) Assessment and Plan Plan Assessment: - Transaminitis- LFTs were WNL on admission and then elevated some on the and significantly on October 20 with the AST being over 9000 and have since been trending down. Pt was very hypotensive on the and this elevation was likely secondary to shocked liver. Denies ETOH in 8 months- was incarcerated and recently has been in rehab for 4 months. Denies history of IV drug use, does report history of cocaine use but none in 8 months. Hepatitis panel negative. Multiple tattoos, approximates 30. Unprotected sexual intercourse, recently with one partner but has had multiple partners. Denies personal history of liver issues. Thinks his mom of liver issues and states she did not drink ETOH. Iron-15 TIBC-168 %sat-8.9 Ferritin-1331 CT abdomen and pelvis W/O IV contrast --> No evidence of retroperitoneal hemorrhage. Bibasilar subsegmental airspace disease and small bilateral pleural effusions. Patchy areas of hypodensity throughout the liver and spleen of uncertain etiology. Minimal air in urinary bladder. Developing anasarca - Hematemesis- Pt reports one episodes prior to admission. Denies history of GIB. Has never had EGD or colonoscopy. H/H 01/24.4 - Diarrhea- reports multiple episodes daily with incontinence, began after admission. Denies blood in stool. C. Diff last tested on 10/27 negative. (11/04) Continued abdominal pain. Denies nausea, vomiting. LFTs trending down significant. MRI noted MRI abdomen W and WO contrast --> Nonspecific heterogeneous signal and enhancement pattern of the liver as described above and not convincingly changed from the prior CT. This is not particularly masslike or with organized fluid. A transient phenomenon related to hepatomegaly and/or hepatocellular disease is thought most likely. Hepatic abscesses are considered unlikely. Small spleen and it also has diffusely heterogeneous signal and enhancement. Acute or subacute superimposed on chronic splenic infarcts are considered most likely. No significant change from the CT. In addition, no particularly mass like area and also no evidence of organized fluid so splenic abscesses are considered less likely. Plan: Cholestyramine Liver work up pending- although likely cause shocked liver given clinical course monitor H/H Protonix Will follow Pt has been seen and examined by myself and Dr. Salinas and this note is written on his behalf (Maylin Almonte) Physician Comments Plan as above, will follow up with you. (Natalie Salinas MD) Maylin Almonte Nov 04, 2017 14:37 Natalie Salinas MD Nov 04, 2017 23:51
[2017-11-04 16:00] VITALS: BP 156/101; PULSE 101; PULSE 108; RESP 20; TEMP 99.2; O2SAT 95
--- NOTE | 2017-11-04 18:55 | HHI.PR ---
Subjective Remarks 42 YOAA male with Bipolar disorder, Lung infilt, fever No Sputum Denies sob Family at BS no CP Objective Vital Signs Vital Signs Date Time Temp Pulse Resp B/P (MAP) Pulse Ox O2 Delivery O2 Flow Rate FiO2 11/04/17 16:00 108 11/04/17 15:00 Nasal Cannula 2.00 21 11/04/17 12:00 95 11/04/17 11:00 Nasal Cannula 2.00 21 11/04/17 08:00 99.4 108 20 155/97 (116) 91 11/04/17 08:00 Nasal Cannula 2.00 21 11/04/17 08:00 106 11/04/17 04:04 Nasal Cannula 2.00 11/04/17 04:00 100.4 104 20 161/92 (115) 93 11/04/17 04:00 99 11/04/17 00:00 99.2 99 20 147/96 (113) 93 11/04/17 00:00 95 11/04/17 00:00 Nasal Cannula 2.00 11/03/17 20:00 Nasal Cannula 2.00 11/03/17 20:00 99.9 105 20 142/84 (103) 93 11/03/17 20:00 107 I/O 11/03/17 11/03/17 11/03/17 11/04/17 11/04/17 11/04/17 07:00 15:00 23:00 07:00 15:00 23:00 Intake Total 262 ml 1466 ml 2500 ml 361.6 ml 261.6 ml Output Total 2400 ml 4000 ml Balance 262 ml -934 ml -1500 ml 361.6 ml 261.6 ml Intake Oral 480 ml 2500 ml IV Total 262 ml 986 ml 361.6 ml 261.6 ml Output Urine Total 2400 ml 4000 ml # Bowel Movements 1 0 Result Diagram: 11/02/17 0439 11/04/17 1115 Objective Remarks GENERAL: WBWN AA male, NAD SKIN: Warm and dry. HEAD: Normocephalic. EYES: No scleral icterus. No injection or drainage. NECK: Supple, trachea midline. No JVD or lymphadenopathy. CARDIOVASCULAR: Regular rate and rhythm without murmurs, gallops, or rubs. RESPIRATORY: Breath sounds equal bilaterally. No accessory muscle use. GASTROINTESTINAL: Abdomen soft, non-tender, nondistended. MUSCULOSKELETAL: No cyanosis, or edema. BACK: Nontender without obvious deformity. No CVA tenderness. A/P Assessment and Plan IMPRESSION: 1. Bilateral lung infiltrate with ongoing fever. He has been treated with antibiotic. Cultures have been negative. Possibility of inflammatory process of the lung or alveolitis. 2. Diabetes mellitus. 3. Renal insufficiency has improved. 4. Benign prostatic hypertrophy. 5. Bipolar disorder. PLAN: Cont Abx Check Coag Dw Pt and his sister Explained Bronch procedure and complications He wants to proceed [facility] Han Robin MD Nov 04, 2017 18:55
[2017-11-04 20:00] VITALS: BP 146/92; PULSE 100; PULSE 113; RESP 17; TEMP 99.5; O2SAT 94
[2017-11-04 22:56] LABS: AUTOMATED NEUTROPHIL # 10.2 TH/MM3 (1.8-7.7); BASOPHIL # 0.1 TH/MM3 (0-0.2); BASOPHIL % 0.4 % (0.0-2.0); EOSINOPHIL # 0.5 TH/MM3 (0-0.4); EOSINOPHIL % 3.4 % (0.0-4.0); HEMATOCRIT 24.6 % (39.0-51.0); HEMOGLOBIN 8.2 GM/DL (13.0-17.0); LYMPH % 16.7 % (9.0-44.0); LYMPHOCYTE # 2.6 TH/MM3 (1.0-4.8); MEAN CELL VOLUME 80.8 FL (80.0-100.0); MEAN CORPUSCULAR HGB CONC 33.4 % (32.0-36.0); MEAN PLATELET VOLUME 8.7 FL (7.0-11.0); MONO % 13.2 % (0.0-8.0); NEUT % 66.3 % (16.0-70.0); PLATELET COUNT 755 TH/MM3 (150-450); RED BLOOD COUNT 3.04 MIL/MM3 (4.50-5.90); RED CELL DISTRIBUTION WIDTH 16.4 % (11.6-17.2); WHITE BLOOD COUNT 15.4 TH/MM3 (4.0-11.0)
[2017-11-04 23:08] LABS: BICARBONATE 22.8 MEQ/L (21.0-32.0); CALCIUM 8.5 MG/DL (8.5-10.1); CREATININE 0.77 MG/DL (0.60-1.30); INTERNATIONAL NORMALIZED RATIO 1.2 RATIO; PROTHROMBIN TIME - PATIENT 12.2 SEC (9.8-11.6)
[2017-11-05] VITALS (9 sets, daily range): BP systolic 132–151; BP diastolic 70–90; PULSE 95–107; RESP 16–18; TEMP 97.8–99.7; O2SAT 93–98
[2017-11-05] MEDS: ALPRAZolam 0.25 MG TAB PO PRN ×4 (00:44→20:18)
[2017-11-05] MEDS: VANCOMYCIN INJ 1,150 MG in SODIUM CHLOR 0.9% 250 ML INJ 250 ML IV SCH ×4 (00:44→23:46)
[2017-11-05] MEDS: traMADol HCL 50 MG TAB PO PRN ×2 (01:55→17:33)
[2017-11-05] MEDS: ARTIFICIAL TEARS OPTH SOLN 15 ML BTL EACH EYE SCH ×3 (06:00→20:17)
[2017-11-05] MEDS: hydrALAZINE HCL 50 MG TAB PO SCH ×3 (06:21→23:45)
[2017-11-05] MEDS: INSULIN ASPART SUPPLEMENTAL SCALE SQ SCH ×4 (08:00→20:16)
[2017-11-05] MEDS: ENOXAPARIN SODIUM 40 MG/0.4 ML SYRINGE SQ SCH (08:00)
[2017-11-05] MEDS: CHLORHEXIDINE 0.12% (ORAL KIT) 15 ML CUP MT SCH ×2 (08:00→20:00)
--- NOTE | 2017-11-05 08:00 | PD.ONC.PN ---
Subjective Subjective Remarks Still feeling weak. Denies any chest pain no shortness of breath. Stool is dark color. Mild abdominal discomfort. Objective Data Date Time Temp Pulse Resp B/P (MAP) Pulse Ox O2 Delivery O2 Flow Rate FiO2 11/05/17 04:00 104 11/05/17 04:00 Nasal Cannula 2.00 11/05/17 04:00 99.7 102 17 142/72 (95) 95 11/05/17 00:00 99.5 95 18 138/88 (105) 94 11/04/17 20:00 99.5 100 17 146/92 (110) 94 11/04/17 20:00 Nasal Cannula 2.00 11/04/17 20:00 113 11/04/17 16:00 99.2 101 20 156/101 (119) 95 11/04/17 16:00 108 11/04/17 15:00 Nasal Cannula 2.00 21 11/04/17 12:00 95 11/04/17 12:00 97.8 98 20 141/92 (108) 94 11/04/17 11:00 Nasal Cannula 2.00 21 11/04/17 08:00 99.4 108 20 155/97 (116) 91 11/04/17 08:00 Nasal Cannula 2.00 21 11/04/17 08:00 106 11/05/17 11/05/17 11/05/17 07:00 15:00 23:00 Intake Total 261.5 ml Balance 261.5 ml Result Diagram: 11/04/17 2225 11/04/17 2225 Laboratory Results Laboratory Tests Test 11/04/17 11:15 11/04/17 22:25 Blood Urea Nitrogen 6 MG/DL 6 MG/DL Creatinine 0.84 MG/DL 0.77 MG/DL Random Glucose 173 MG/DL 122 MG/DL Total Protein 6.8 GM/DL Albumin 2.2 GM/DL Calcium Level 8.1 MG/DL 8.5 MG/DL Alkaline Phosphatase 143 U/L Aspartate Amino Transf (AST/SGOT) 89 U/L Alanine Aminotransferase (ALT/SGPT) 70 U/L Total Bilirubin 0.4 MG/DL Sodium Level 141 MEQ/L 140 MEQ/L Potassium Level 3.3 MEQ/L 3.5 MEQ/L Chloride Level 106 MEQ/L 106 MEQ/L Carbon Dioxide Level 23.7 MEQ/L 22.8 MEQ/L Anion Gap 11 MEQ/L 11 MEQ/L Estimat Glomerular Filtration Rate 123 ML/MIN 136 ML/MIN White Blood Count 15.4 TH/MM3 Red Blood Count 3.04 MIL/MM3 Hemoglobin 8.2 GM/DL Hematocrit 24.6 % Mean Corpuscular Volume 80.8 FL Mean Corpuscular Hemoglobin 27.0 PG Mean Corpuscular Hemoglobin Concent 33.4 % Red Cell Distribution Width 16.4 % Platelet Count 755 TH/MM3 Mean Platelet Volume 8.7 FL Neutrophils (%) (Auto) 66.3 % Lymphocytes (%) (Auto) 16.7 % Monocytes (%) (Auto) 13.2 % Eosinophils (%) (Auto) 3.4 % Basophils (%) (Auto) 0.4 % Neutrophils # (Auto) 10.2 TH/MM3 Lymphocytes # (Auto) 2.6 TH/MM3 Monocytes # (Auto) 2.0 TH/MM3 Eosinophils # (Auto) 0.5 TH/MM3 Basophils # (Auto) 0.1 TH/MM3 CBC Comment DIFF FINAL Differential Comment Prothrombin Time 12.2 SEC Prothromb Time International Ratio 1.2 RATIO Activated Partial Thromboplast Time 28.1 SEC Administered Medications Medications (Trade) Dose Ordered Sig/Jacky Route PRN Reason Start Time Stop Time Status Last Admin Dose Admin Sodium Chloride (NS Flush) 2 ml BID IV FLUSH 10/19/17 09:00 11/04/17 20:31 Albuterol Sulfate (Albuterol Neb) 2.5 mg Q2HR NEB PRN INH SOB/WHEEZING 10/19/17 02:30 10/24/17 08:36 Miscellaneous Information [place] [place] [facility] [place] 1 [id number] XX 10/19/17 02:30 10/19/17 02:30 Chlorhexidine Gluconate (Chlorhexidine 2% Cloth) Taper DAILY@04 TOP 10/19/17 04:00 10/15/18 03:59 10/27/17 04:00 Ondansetron HCl (Zofran Odt) 4 mg Q6H PRN PO NAUSEA OR VOMITING 10/19/17 02:30 10/29/17 23:44 Artificial Tears (Tears Naturale Opth Soln) 1 drop Q8HR EACH EYE 10/19/17 06:00 11/05/17 06:00 Chlorhexidine Gluconate (Peridex 0.12% Liq) 15 ml BID@08,20 MT 10/19/17 08:00 11/04/17 08:47 Acetaminophen 100 ml @ 400 mls/hr Q8H PRN IV fever 10/19/17 03:30 11/02/17 10:54 Insulin Detemir (Levemir Inj) 5 units Q12HR SQ 10/25/17 10:00 11/04/17 20:31 Amlodipine Besylate (Norvasc) 10 mg DAILY PO 10/26/17 09:00 11/04/17 08:47 Enoxaparin Sodium (Lovenox Inj) 40 mg Q24H SQ 10/26/17 08:00 11/04/17 08:47 Pantoprazole Sodium (Protonix) 40 mg Q12HR PO 10/27/17 21:00 11/04/17 20:31 Hydralazine HCl (Apresoline) 50 mg Q8HR PO 10/27/17 22:00 11/05/17 06:21 Insulin Aspart (NovoLOG SUPPLEMENTAL SCALE) 1 ACHS SLIDING SCALE SQ 10/27/17 17:00 11/04/17 12:04 Nystatin (Mycostatin Powder) 1 applic Q12HR TOPICAL 10/27/17 21:00 11/04/17 20:31 Tramadol HCl (Ultram) 50 mg Q8H PRN PO PAIN 5-10 10/29/17 13:15 11/05/17 01:55 Ceftriaxone Sodium 2000 mg/ Sodium Chloride 100 ml @ 200 mls/hr Q24H IV 10/31/17 13:00 11/04/17 12:05 Vancomycin HCl 1150 mg/Sodium Chloride 261.5 ml @ 250 mls/hr Q8H IV 11/02/17 00:00 11/05/17 00:44 Carvedilol (Coreg) 6.25 mg Q12HR PO 11/02/17 21:00 11/04/17 20:31 Alprazolam (Xanax) 0.25 mg Q6HR PRN PO anxiety 11/03/17 12:30 11/05/17 06:21 Acetaminophen (Tylenol) 325 mg Q4H PRN PO Fever > 100.4 11/03/17 18:45 11/03/17 18:58 Objective Remarks GENERAL: Well-nourished, well-developed patient. SKIN: Warm and dry. HEAD: Normocephalic. EYES: No scleral icterus. No injection or drainage. NECK: Supple, trachea midline. No JVD or lymphadenopathy. LYMPHATIC: No adenopathy. CARDIOVASCULAR: Regular rate and rhythm without murmurs. RESPIRATORY: Breath sounds equal bilaterally. No accessory muscle use. GASTROINTESTINAL: Abdomen soft, mild discomfort, nondistended. EXTREMITIES: No cyanosis, or edema. MUSCULOSKELETAL: Adequate muscle tone. NEUROLOGICAL: No obvious focal deficit. Awake, alert, and oriented x3. PSYCHIATRIC: Appropriate mood and affect; insight and judgment normal. Assessment/Plan Problem List: (1) Microcytic anemia ICD Codes: D50.9 - Iron deficiency anemia, unspecified Plan: --Likely multifactorial due to sepsis +inflammation --Iron studies were done after patient received blood transfusions--> difficult to interpret. --No sign of hemolysis --hemoglobin electrophoresis and protein electrophoresis are pending. (2) Sepsis ICD Codes: A41.9 - Sepsis, unspecified organism Plan: --SHASHI shows mitral valve regurgitation, aortic valve regurgitation and vegetation --ID following --Blood cultures have been negative so far Assessment 42 y/o male admitted with DKA and sepsis; hematology consulted for anemia Plan 1. monitor CBC 2. continue antibiotics per infectious disease 3. no transfusion today. 4. Check stool occult blood. 5. Hemoglobin electrophoresis and protein electrophoresis are still pending. Presley Lux MD Nov 05, 2017 08:00
[2017-11-05] MEDS: SODIUM CHLORIDE 0.9% FLUSH 10 ML FLUSH IV FLUSH SCH ×2 (08:34→20:16)
[2017-11-05] MEDS: CARVEDILOL 6.25 MG TAB PO SCH ×2 (08:35→20:15)
[2017-11-05] MEDS: PANTOPRAZOLE SOD 40 MG DELAYED RELEASE TAB PO SCH ×2 (08:35→20:16)
[2017-11-05] MEDS: CHOLESTYRAMINE 4 GM PACKET PO SCH (08:35)
[2017-11-05] MEDS: INSULIN DETEMIR 100 UNITS/ML VIAL SQ SCH ×2 (08:37→20:16)
[2017-11-05] MEDS: NYSTATIN 100,000 U/GM PWD 15 GM BTL TOPICAL SCH ×2 (08:40→20:17)
[2017-11-05 09:22] LABS: Q FEVER PHASE I AB IGG TITER ND TITER (<1:16); Q FEVER PHASE I AB IGM TITER ND TITER (<1:16); Q FEVER PHASE II IGG TITER ND TITER (<1:16); Q FEVER PHASE II IGM TITER ND TITER (<1:16)
[2017-11-05 09:33] LABS: AUTOMATED NEUTROPHIL # 8.8 TH/MM3 (1.8-7.7); BASOPHIL # 0.3 TH/MM3 (0-0.2); BASOPHIL % 2.1 % (0.0-2.0); EOSINOPHIL # 0.5 TH/MM3 (0-0.4); EOSINOPHIL % 3.7 % (0.0-4.0); HEMATOCRIT 24.5 % (39.0-51.0); HEMOGLOBIN 8.2 GM/DL (13.0-17.0); LYMPHOCYTE # 2.7 TH/MM3 (1.0-4.8); MEAN CORPUSCULAR HEMOGLOBIN 27.2 PG (27.0-34.0); MEAN CORPUSCULAR HGB CONC 33.6 % (32.0-36.0); MEAN PLATELET VOLUME 8.8 FL (7.0-11.0); MONO % 12.3 % (0.0-8.0); MONOCYTE # 1.7 TH/MM3 (0-0.9); NEUT % 62.9 % (16.0-70.0); PLATELET COUNT 786 TH/MM3 (150-450); RED BLOOD COUNT 3.03 MIL/MM3 (4.50-5.90)
[2017-11-05 09:54] LABS: ALBUMIN 2.3 GM/DL (3.4-5.0); ALT (GPT) 77 U/L (12-78); AST (GOT) 99 U/L (15-37); BICARBONATE 24.3 MEQ/L (21.0-32.0); BLOOD UREA NITROGEN 6 MG/DL (7-18); CALCIUM 8.3 MG/DL (8.5-10.1); CHLORIDE 106 MEQ/L (98-107); CREATININE 0.84 MG/DL (0.60-1.30); GLOMERULAR FILTRATION RATE 123 ML/MIN (>89); GLUCOSE,RANDOM 110 MG/DL (74-106); MAGNESIUM 1.7 MG/DL (1.5-2.5); SODIUM (NA) 140 MEQ/L (136-145)
[2017-11-05 10:03] LABS: ALKALINE PHOSPHATASE 151 U/L (45-117); FREE T4 1.47 NG/DL (0.76-1.46); PHOSPHORUS 3.6 MG/DL (2.5-4.9); TOTAL BILIRUBIN ADULT 0.4 MG/DL (0.2-1.0)
[2017-11-05] MEDS: cefTRIAXone INJ 2,000 MG in SODIUM CHLORIDE 0.9% INJ 100 ML IV SCH (12:48)
--- NOTE | 2017-11-05 13:12 | HHI.PR ---
Subjective Remarks 6-3 STILL HAVING SOME FEVERS ON AND OFF DW RN AND PT REPLACE POTASSIUM AM LABS 6-4 TO HAVE BRONCHOSCOPY TODAY STILL WITH FEVERS ON AND OFF DW RN AND PATIENT CONTINUE CURRENT TREATMENTS Objective Vitals Vital Signs Date Time Temp Pulse Resp B/P (MAP) Pulse Ox O2 Delivery O2 Flow Rate FiO2 11/05/17 09:42 Nasal Cannula 2.00 11/05/17 08:11 98.7 107 16 136/70 (92) 98 11/05/17 07:47 106 11/05/17 04:00 104 11/05/17 04:00 Nasal Cannula 2.00 11/05/17 04:00 99.7 102 17 142/72 (95) 95 11/05/17 00:00 99.5 95 18 138/88 (105) 94 11/04/17 20:00 99.5 100 17 146/92 (110) 94 11/04/17 20:00 Nasal Cannula 2.00 11/04/17 20:00 113 11/04/17 16:00 99.2 101 20 156/101 (119) 95 11/04/17 16:00 108 11/04/17 15:00 Nasal Cannula 2.00 21 I/O 11/04/17 11/04/17 11/04/17 11/05/17 11/05/17 11/05/17 06:59 14:59 22:59 06:59 14:59 22:59 Intake Total 2500 ml 361.6 ml 501.6 ml 261.5 ml Output Total 4000 ml 1875 ml Balance -1500 ml 361.6 ml -1373.4 ml 261.5 ml Intake Oral 2500 ml 240 ml IV Total 361.6 ml 261.6 ml 261.5 ml Output Urine Total 4000 ml 1875 ml # Bowel Movements 0 1 Result Diagram: 11/05/17 0818 11/05/1718 Other Results Laboratory Tests Test 11/02/17 15:55 11/02/17 18:54 11/03/17 13:04 11/04/17 11:15 Vancomycin Level Trough 16.2 MCG/ML Erythrocyte Sedimentation Rate GREATER THAN 140 mm/hr Tumor Marker Alpha Fetoprotein 6.9 NG/ML Blood Urea Nitrogen 6 MG/DL Creatinine 0.84 MG/DL Random Glucose 173 MG/DL Total Protein 6.8 GM/DL Albumin 2.2 GM/DL Calcium Level 8.1 MG/DL Alkaline Phosphatase 143 U/L Aspartate Amino Transf (AST/SGOT) 89 U/L Alanine Aminotransferase (ALT/SGPT) 70 U/L Total Bilirubin 0.4 MG/DL Sodium Level 141 MEQ/L Potassium Level 3.3 MEQ/L Chloride Level 106 MEQ/L Carbon Dioxide Level 23.7 MEQ/L Anion Gap 11 MEQ/L Estimat Glomerular Filtration Rate 123 ML/MIN Test 11/04/17 22:25 11/05/17 08:18 White Blood Count 15.4 TH/MM3 14.0 TH/MM3 Red Blood Count 3.04 MIL/MM3 3.03 MIL/MM3 Hemoglobin 8.2 GM/DL 8.2 GM/DL Hematocrit 24.6 % 24.5 % Mean Corpuscular Volume 80.8 FL 81.0 FL Mean Corpuscular Hemoglobin 27.0 PG 27.2 PG Mean Corpuscular Hemoglobin Concent 33.4 % 33.6 % Red Cell Distribution Width 16.4 % 16.0 % Platelet Count 755 TH/MM3 786 TH/MM3 Mean Platelet Volume 8.7 FL 8.8 FL Neutrophils (%) (Auto) 66.3 % 62.9 % Lymphocytes (%) (Auto) 16.7 % 19.0 % Monocytes (%) (Auto) 13.2 % 12.3 % Eosinophils (%) (Auto) 3.4 % 3.7 % Basophils (%) (Auto) 0.4 % 2.1 % Neutrophils # (Auto) 10.2 TH/MM3 8.8 TH/MM3 Lymphocytes # (Auto) 2.6 TH/MM3 2.7 TH/MM3 Monocytes # (Auto) 2.0 TH/MM3 1.7 TH/MM3 Eosinophils # (Auto) 0.5 TH/MM3 0.5 TH/MM3 Basophils # (Auto) 0.1 TH/MM3 0.3 TH/MM3 CBC Comment DIFF FINAL DIFF FINAL Differential Comment Prothrombin Time 12.2 SEC Prothromb Time International Ratio 1.2 RATIO Activated Partial Thromboplast Time 28.1 SEC Blood Urea Nitrogen 6 MG/DL 6 MG/DL Creatinine 0.77 MG/DL 0.84 MG/DL Random Glucose 122 MG/DL 110 MG/DL Calcium Level 8.5 MG/DL 8.3 MG/DL Sodium Level 140 MEQ/L 140 MEQ/L Potassium Level 3.5 MEQ/L 3.5 MEQ/L Chloride Level 106 MEQ/L 106 MEQ/L Carbon Dioxide Level 22.8 MEQ/L 24.3 MEQ/L Anion Gap 11 MEQ/L 10 MEQ/L Estimat Glomerular Filtration Rate 136 ML/MIN 123 ML/MIN Total Protein 7.0 GM/DL Albumin 2.3 GM/DL Phosphorus Level 3.6 MG/DL Magnesium Level 1.7 MG/DL Alkaline Phosphatase 151 U/L Aspartate Amino Transf (AST/SGOT) 99 U/L Alanine Aminotransferase (ALT/SGPT) 77 U/L Total Bilirubin 0.4 MG/DL Free Thyroxine 1.47 NG/DL Thyroid Stimulating Hormone 3rd Gen 3.420 uIU/ML Imaging Last Impressions Abdomen MRI 11/03/17 Signed Impressions: CONCLUSION: 1. Nonspecific heterogeneous signal and enhancement pattern of the liver as de scribed above and not convincingly changed from the prior CT. This is not parti cularly masslike or with organized fluid. A transient phenomenon related to hep atomegaly and/or hepatocellular disease is thought most likely. Hepatic abscess es are considered unlikely. 2. Small spleen and it also has diffusely heterogeneous signal and enhancement . Acute or subacute superimposed on chronic splenic infarcts are considered mos t likely. No significant change from the CT. In addition, no particularly mass like area and also no evidence of organized fluid so splenic abscesses are cons idered less likely. Chest X-Ray 11/01/17 Signed Impressions: CONCLUSION: Diffuse bilateral patchy airspace disease again seen Abdomen/Pelvis CT 10/27/17 Signed Impressions: CONCLUSION: 1. No evidence of retroperitoneal hemorrhage. 2. Bibasilar subsegmental airspace disease and small bilateral effusions. 3. Patchy areas of hypodensity throughout the liver and spleen of uncertain et iology. Considering patient's history a septic vascular embolic process should be considered. 4. Minimal air in the urinary bladder. 5. Developing anasarca. Chest CT 10/25/17 Signed Impressions: CONCLUSION: 1. Multiple bilateral scattered interstitial and airspace infiltrates througho ut both lung yuen suggestive of some type of inflammatory process. 2. Abnormal appearance of the liver. Recommend CT scan of the abdomen with IV contrast for further evaluation. Brain MRI 10/25/17 Signed Impressions: CONCLUSION: 1. Unremarkable MRI examination of the brain. Specifically, no cerebral edema or diffusion abnormality to suggest encephalitis. Head CT 10/24/17 Signed Impressions: CONCLUSION: 1. No acute intracranial abnormality. Gall Bladder Ultrasound 10/23/17 Signed Impressions: CONCLUSION: 1. There is increased echogenicity of the liver suggestive of fatty infiltrati on and/or hepatocellular disease. 2. No evidence of gallstones or biliary tract obstruction. Renal Ultrasound 10/19/17 Signed Impressions: Service Date/Time: Thursday, October 19, 2017 09:46 - CONCLUSION: Normal examination. Alexx Baig MD Objective Remarks GENERAL: Awake alert and oriented 3 talkative and cooperative has multiple tattoos SKIN: Warm and dry. Has multiple tattoos HEAD: Atraumatic. Normocephalic. EYES: Pupils equal and round. No scleral icterus. No injection or drainage. Extraocular muscles intact ENT: No nasal bleeding or discharge. Mucous membranes pink and moist. Tongue is midline NECK: Trachea midline. No JVD. Supple CARDIOVASCULAR: Regular rate and rhythm. S1-S2 no S3 or S4 RESPIRATORY: No accessory muscle use. Clear to auscultation. Breath sounds equal bilaterally. GASTROINTESTINAL: Abdomen soft, non-tender, nondistended. Hepatic and splenic margins not palpable. MUSCULOSKELETAL: Extremities without clubbing, cyanosis, or edema. No obvious deformities. NEUROLOGICAL: Awake and alert. No obvious cranial nerve deficits. Motor grossly within normal limits. Five out of 5 muscle strength in the arms and legs. Normal speech. PSYCHIATRIC: Appropriate mood and affect; insight and judgment normal. Medications and IVs Current Medications Acetaminophen (Tylenol Supp) 650 mg ONCE ONCE RECTAL Last administered on 10/18at 23:00; Start 10/18/17 at 23:00; Stop 10/18/17 at 23:01; Status DC Ketorolac Tromethamine (Toradol Inj) 30 mg ONCE ONCE IV PUSH Last administered on 10/18/17at 23:00; Start 10/18/17 at 23:00; Stop 10/18/17 at 23:01 ; Status DC Insulin Human Regular (NovoLIN R INJ) 6 units ONCE ONCE IV PUSH Last administered on 10/18/17at 22:59; Start 10/18/17 at 23:00; Stop 10/18/17 at 23:01 ; Status DC Cyproheptadine HCl (Periactin Liq) 4 mg ONCE ONCE PO ; Start 10/18/17 at 23:00 ; Stop 10/18/17 at 23:01; Status DC Ceftriaxone Sodium 1000 mg/ Sodium Chloride 100 ml @ 200 mls/hr ONCE ONCE IV Last administered on 10/18/17at 23:34; Start 10/18/17 at 23:30; Stop 10/19/17 at 00:03; Status DC Insulin Human Regular (NovoLIN R INJ) 10 units ONCE ONCE IV PUSH Last administered on 10/18/17at 23:34; Start 10/18/17 at 23:30; Stop 10/18/17 at 23:31 ; Status DC Insulin Human Regular 100 ml @ 0 mls/hr ONCE ONCE IV Last administered on 10/19at 00:00; Start 10/18/17 at 23:30; Stop 10/18/17 at 23:39; Status DC Sodium Chloride 1,000 ml @ 999 mls/hr BOLUS ONCE IV Last administered on 10/19at 00:15; Start 10/19/17 at 00:00; Stop 10/19/17 at 01:00; Status DC Sodium Chloride 1,000 ml @ 999 mls/hr BOLUS ONCE IV Last administered on 10/19at 00:16; Start 10/19/17 at 00:00; Stop 10/19/17 at 01:00; Status DC Sodium Chloride 1,000 ml @ 999 mls/hr BOLUS ONCE IV Last administered on 10/19at 00:16; Start 10/19/17 at 00:00; Stop 10/19/17 at 01:00; Status DC Potassium Chloride/Sodium Chloride 1,000 ml @ 125 mls/hr Q8H IV Last administered on 10/19/17at 00:36; Start 10/19/17 at 00:15; Stop 10/19/17 at 02:29 ; Status DC Lorazepam (Ativan Inj) 1 mg ONCE ONCE IV PUSH Last administered on 10/19/17at 00:35; Start 10/19/17 at 00:15; Stop 10/19/17 at 00:16; Status DC Sodium Chloride 1,000 ml @ 999 mls/hr BOLUS ONCE IV Last administered on 10/19at 00:37; Start 10/19/17 at 00:30; Stop 10/19/17 at 01:30; Status DC Sodium Chloride 1,000 ml @ 999 mls/hr BOLUS ONCE IV Last administered on 10/19at 00:37; Start 10/19/17 at 00:30; Stop 10/19/17 at 01:30; Status DC Potassium Chloride 100 ml @ 50 mls/hr BOLUS ONCE IV Last administered on 10/19at 01:40; Start 10/19/17 at 01:15; Stop 10/19/17 at 03:14; Status DC Sodium Bicarbonate (Sodium Bicarbonate 8.4% Inj) 50 meq STK-MED ONCE .ROUTE ; Start 10/19/17 at 01:19; Stop 10/19/17 at 01:20; Status DC Etomidate (Amidate Inj) 40 mg STK-MED ONCE .ROUTE ; Start 10/19/17 at 01:34; Stop 10/19/17 at 01:35; Status DC Calcium Gluconate (Calcium Gluconate Inj) 1 gm ONCE ONCE IV PUSH ; Start at 01:45; Stop 10/19/17 at 01:46; Status DC Calcium Gluconate (Calcium Gluconate Inj) 1 gm STK-MED ONCE .ROUTE ; Start 10/19 at 01:36; Stop 10/19/17 at 01:37; Status DC Sodium Chloride (NS Flush) 2 ml UNSCH PRN IV FLUSH FLUSH AFTER USING IV ACCESS ; Start 10/19/17 at 02:30 Sodium Chloride (NS Flush) 2 ml BID IV FLUSH Last administered on 11/05/17at 08: 34; Start 10/19/17 at 09:00 Morphine Sulfate (Morphine Inj) 2 mg Q2H PRN IV PUSH PAIN SCALE 6 TO 10 Last administered on 10/25/17at 06:26; Start 10/19/17 at 02:30; Stop 10/25/17 at 09:33 ; Status DC Pantoprazole Sodium (Protonix Inj) 40 mg DAILY IV PUSH ; Start 10/19/17 at 09:00 ; Stop 10/19/17 at 09:00; Status DC Artificial Tears (Tears Naturale Opth Soln) 1 drop TID EACH EYE ; Start at 09:00; Stop 10/19/17 at 09:00; Status DC Ondansetron HCl (Zofran Inj) 4 mg Q6H PRN IV PUSH NAUSEA OR VOMITING; Start at 02:30; Stop 10/19/17 at 02:30; Status DC Albuterol/ Ipratropium (Duoneb Neb) 1 ampule Q6HR NEB INH Last administered on 10/23/17at 03:57; Start 10/19/17 at 04:00; Stop 10/23/17 at 03:59; Status DC Albuterol Sulfate (Albuterol Neb) 2.5 mg Q2HR NEB PRN INH SOB/WHEEZING Last administered on 10/24/17at 08:36; Start 10/19/17 at 02:30 Miscellaneous Information ([facility] 1 [id number] Last administered on 10/19/17at 02:30; Start 10/19/17 at 02:30 Chlorhexidine Gluconate (Chlorhexidine 2% Cloth) Taper DAILY@04 TOP Last administered on 10/27/17at 04:00; Start 10/19/17 at 04:00; Stop 10/15/18 at 03:59 Chlorhexidine Gluconate (Chlorhexidine 2% Cloth) 3 pack UNSCH PRN TOP HYGIENIC CARE; Start 10/19/17 at 02:30 Senna/Docusate Sodium (Candace-Colace) 1 tab BID PO Last administered on at 20:33; Start 10/19/17 at 09:00; Stop 10/27/17 at 16:20; Status DC Magnesium Hydroxide (Milk Of Magnesia Liq) 30 ml Q12H PRN PO Mild constipation ; Start 10/19/17 at 02:30; Status Future Hold Sennosides (Senokot) 17.2 mg Q12H PRN PO Moderate constipation; Start 10/19/17 at 02:30; Status Future Hold Bisacodyl (Dulcolax Supp) 10 mg DAILY PRN RECTAL SEVERE CONSITIPATION; Start at 02:30 Lactulose (Lactulose Liq) 30 ml DAILY PRN PO SEVERE CONSITIPATION; Start at 02:30; Stop 10/23/17 at 21:17; Status DC Potassium Phosphate 30 mmol/ Sodium Chloride 260 ml @ 43.333 mls/ hr ONCE ONCE IV Last administered on 10/19/17at 03:33; Start 10/19/17 at 02:30; Stop at 08:29; Status DC Potassium Chloride 40 meq/ Sodium Chloride 38.5 meq/Sterile Water 1,029.625 ml @ 150 mls/hr Q6H52M IV Last administered on 10/19/17at 10:27; Start 10/19/17 at 02:45; Stop 10/19/17 at 14:22; Status DC Ondansetron HCl (Zofran Odt) 4 mg Q6H PRN PO NAUSEA OR VOMITING Last administered on 10/29/17 23:44; Start 10/19/17 at 02:30 Pantoprazole Sodium (Protonix Inj) 40 mg BID IV PUSH Last administered on 08:37; Start 10/19/17 at 09:00; Stop 10/27/17 at 16:20; Status DC Artificial Tears (Tears Naturale Opth Soln) 1 drop Q8HR EACH EYE Last administered on 11/05/17 13:02; Start 10/19/17 at 06:00 Succinylcholine Chloride (Quelicin Inj) 100 mg ONCE ONCE IV PUSH Last administered on 10/19/17 02:59; Start 10/19/17 at 03:00; Stop 10/19/17 at 03:03 ; Status DC Chlorhexidine Gluconate (Peridex 0.12% Liq) 15 ml BID@08,20 MT Last administered on 11/04/17 08:47; Start 10/19/17 at 08:00 Propofol 100 ml @ 3.24 mls/hr TITRATE PRN IV SEDATION; Start 10/19/17 at 03:00 ; Stop 10/23/17 at 08:34; Status DC Fentanyl Citrate 250 ml @ 5 mls/hr TITRATE PRN IV SEDATION; Start 10/19/17 at 03:00; Stop 10/19/17 at 08:22; Status DC Etomidate (Amidate Inj) 10 mg ONCE ONCE IV PUSH Last administered on at 02:58; Start 10/19/17 at 03:00; Stop 10/19/17 at 03:03; Status DC Sodium Bicarbonate (Sodium Bicarbonate 8.4% Inj) 50 meq ONCE ONCE IV PUSH Last administered on 10/19/17at 03:00; Start 10/19/17 at 03:00; Stop 10/19/17 at 03:03; Status DC Sodium Chloride 1,000 ml @ 999 mls/hr BOLUS ONCE IV Last administered on 10/19at 02:58; Start 10/19/17 at 03:00; Stop 10/19/17 at 04:00; Status DC Norepinephrine Bitartrate 4 mg/ Sodium Chloride 250 ml @ 7.5 mls/hr TITRATE PRN IV Blood pressure management Last administered on 10/20/17at 06:30; Start at 03:30; Stop 10/23/17 at 08:34; Status DC Terbutaline Sulfate (Brethine Inj) 1 mg UNSCH PRN SQ For Extravasation; Start 10/19/17 at 03:30; Stop 10/19/17 at 08:22; Status DC Phenylephrine HCl (Neosynephrine Inj) 10 mg STK-MED ONCE .ROUTE ; Start at 03:29; Stop 10/19/17 at 03:30; Status DC Acetaminophen 100 ml @ 400 mls/hr Q8H PRN IV fever Last administered on at 10:54; Start 10/19/17 at 03:30 Phenylephrine HCl (Neosynephrine Inj) 10 mg STK-MED ONCE .ROUTE ; Start at 03:30; Stop 10/19/17 at 03:31; Status DC Phenylephrine HCl (Neosynephrine Inj) 10 mg STK-MED ONCE .ROUTE ; Start at 03:34; Stop 10/19/17 at 03:35; Status DC Pharmacy Profile Note 0 ml @ 0 mls/hr UNSCH OTHER ; Start 10/19/17 at 04:00; Stop 10/21/17 at 16:48; Status DC Cefepime HCl 2000 mg/Sodium Chloride 100 ml @ 200 mls/hr Q12H IV Last administered on 10/25/17at 06:26; Start 10/19/17 at 04:00; Stop 10/25/17 at 05:00 ; Status DC Metronidazole 100 ml @ 100 mls/hr Q6H IV Last administered on 10/25/17at 06:25 ; Start 10/19/17 at 04:00; Stop 10/25/17 at 08:11; Status DC Vancomycin HCl 1500 mg/Sodium Chloride 515 ml @ 257.5 mls/ hr ONCE ONCE IV Last administered on 10/19/17at 05:28; Start 10/19/17 at 05:00; Stop 10/19/17 at 06:59; Status DC Lactulose (Lactulose Liq) 30 ml BID PO Last administered on 10/21/17at 09:45; Start 10/19/17 at 09:00; Stop 10/23/17 at 10:50; Status DC Dextrose (D50w (Vial) Inj) 50 ml UNSCH PRN IV PUSH HYPOGLYCEMIA-SEE COMMENTS; Start 10/19/17 at 04:15; Stop 10/19/17 at 23:25; Status DC Glucagon (Glucagon Inj) 1 mg UNSCH PRN OTHER HYPOGLYCEMIA-SEE COMMENTS; Start 10/19/17 at 04:15; Stop 10/31/17 at 15:36; Status DC Potassium Chloride 100 ml @ 25 mls/hr Q4H IV Last administered on 10/19/17at 10 :27; Start 10/19/17 at 05:00; Stop 10/19/17 at 12:59; Status DC Potassium Bicarb/ Potassium Chloride (K-Lyte Cl Eff) 50 meq STAT ONCE NG Last administered on 10/19/17at 09:19; Start 10/19/17 at 07:45; Stop 10/19/17 at 07:46; Status DC Phenylephrine HCl (Neosynephrine Inj) 10 mg STK-MED ONCE .ROUTE ; Start at 07:39; Stop 10/19/17 at 07:40; Status DC Vasopressin 40 units/Dextrose 100 ml @ 1.5 mls/hr TITRATE PRN IV Blood Pressure Management Last administered on 10/20/17at 15:58; Start 10/19/17 at 07: 45; Stop 10/21/17 at 16:48; Status DC Phenylephrine HCl 40 mg/Dextrose 500 ml @ 30 mls/hr TITRATE PRN IV Blood Pressure Management Last administered on 10/20/17at 01:55; Start 10/19/17 at 07: 45; Stop 10/21/17 at 16:48; Status DC Terbutaline Sulfate (Brethine Inj) 1 mg UNSCH PRN SQ FOR EXTRAVASATION PROTOCOL ; Start 10/19/17 at 07:45 Fentanyl Citrate 250 ml @ 5 mls/hr TITRATE PRN IV SEDATION Last administered on 10/23/17at 03:13; Start 10/19/17 at 08:15; Stop 10/23/17 at 08:34; Status DC Midazolam HCl 100 ml @ 2 mls/hr TITRATE PRN IV SEDATION; Start 10/19/17 at 08: 15; Stop 10/19/17 at 13:47; Status DC Sodium Bicarbonate (Sodium Bicarbonate 8.4% Inj) 50 meq ONCE ONCE IV PUSH Last administered on 10/19/17at 09:55; Start 10/19/17 at 09:45; Stop 10/19/17 at 09:46; Status DC Calcium Chloride (Calcium Chloride Inj) 1 gm [place]-MED ONCE .ROUTE Last administered on 10/19/17at 09:43; Start 10/19/17 at 09:43; Stop 10/19/17 at 09:44 ; Status DC Potassium Bicarb/ Potassium Chloride (K-Lyte Cl Eff) 50 meq ONCE ONCE PO Last administered on 10/19/17at 12:15; Start 10/19/17 at 12:15; Stop 10/19/17 at 12:21; Status DC Potassium Chloride 100 ml @ 25 mls/hr ONCE IV ; Start 10/19/17 at 13:00; Stop 10/20/17 at 16:59; Status DC Insulin Detemir (Levemir Inj) 10 units Q12HR SQ Last administered on 10/19/17at 20:02; Start 10/19/17 at 13:15; Stop 10/20/17 at 01:40; Status DC Sodium Bicarbonate 150 meq/Potassium Chloride 80 meq/ Sterile Water 1,040 ml @ 150 mls/hr Q6H56M IV Last administered on 10/19/17at 14:00; Start 10/19/17 at 14 :00; Stop 10/19/17 at 14:22; Status DC Midazolam HCl 50 ml @ 2 mls/hr TITRATE PRN IV SEDATION Last administered on at 10:49; Start 10/19/17 at 14:00; Stop 10/21/17 at 16:48; Status DC Sodium Bicarbonate 100 meq/Potassium Chloride 60 meq/ Sterile Water 1,000 ml @ 150 mls/hr Q6H40M IV ; Start 10/19/17 at 15:00; Stop 10/19/17 at 15:08; Status DC Sodium Bicarbonate 100 meq/Sterile Water 1,000 ml @ 150 mls/hr Q6H40M IV Last administered on 10/20/17at 12:17; Start 10/20/17 at 16:00; Stop 10/20/17 at 16:00 ; Status DC Calcium Chloride (Calcium Chloride Inj) 1 gm ONCE IV PUSH ; Start 10/19/17 at 16 :15; Stop 10/19/17 at 17:00; Status DC Sodium Bicarbonate (Sodium Bicarbonate 8.4% Inj) 50 meq ONCE ONCE IV PUSH Last administered on 10/19/17at 17:29; Start 10/19/17 at 17:30; Stop 10/19/17 at 17:31; Status DC Midazolam HCl (Versed Inj) 5 mg STK-MED ONCE .ROUTE Last administered on at 20:21; Start 10/19/17 at 20:21; Stop 10/19/17 at 20:22; Status DC Sodium Bicarbonate (Sodium Bicarbonate 8.4% Inj) 100 meq ONCE ONCE IV PUSH Last administered on 10/19/17at 23:24; Start 10/19/17 at 22:00; Stop 10/19/17 at 22:34; Status DC Insulin Aspart (NovoLOG SUPPLEMENTAL SCALE) 1 Q3H SQ ; Start 10/19/17 at 22:00; Stop 10/19/17 at 23:25; Status DC Insulin Human Regular 100 units/ Sodium Chloride 100 ml @ 0.5 mls/hr TITRATE PRN IV Blood Glucose Control Last administered on 10/19/17at 23:54; Start at 23:30; Stop 10/20/17 at 01:40; Status DC Dextrose (D50w (Vial) Inj) 50 ml UNSCH PRN IV PUSH SEE LABEL COMMENTS Last administered on 10/23/17at 05:24; Start 10/19/17 at 23:30; Stop 10/31/17 at 15:36 ; Status DC Miscellaneous Information 1 ONCE ONCE OTHER Last administered on 10/19/17at 23: 30; Start 10/19/17 at 23:30; Stop 10/19/17 at 23:31; Status DC Insulin Human Regular 100 units/ Sodium Chloride 100 ml @ 2 mls/hr TITRATE PRN IV Blood Glucose Control Last administered on 10/23/17at 04:08; Start 10/20/17 at 01:45; Stop 10/24/17 at 20:50; Status DC Water (Free Water) VOLUME: 200 ML Q6HR G-TUBE Last administered on 10/21/17at 12 :00; Start 10/20/17 at 12:00; Stop 10/21/17 at 16:48; Status DC Vancomycin HCl 2000 mg/Sodium Chloride 520 ml @ 257.5 mls/ hr ONCE ONCE IV Last administered on 10/20/17at 13:50; Start 10/20/17 at 14:00; Stop 10/20/17 at 16:01; Status DC Potassium Chloride 40 meq/ Sodium Chloride 520 ml @ 130 mls/hr ONCE ONCE IV- CENTRAL Last administered on 10/20/17at 13:49; Start 10/20/17 at 13:00; Stop at 16:59; Status DC Sodium Chloride 38.5 meq/Sterile Water 1,009.625 ml @ 150 mls/hr Q6H44M IV Last administered on 10/21/17at 09:05; Start 10/20/17 at 14:00; Stop 10/21/17 at 13:50; Status DC Vancomycin HCl 2000 mg/Sodium Chloride 520 ml @ 257.5 mls/ hr ONCE ONCE IV Last administered on 10/21/17at 14:15; Start 10/21/17 at 14:00; Stop 10/21/17 at 16:01; Status DC Lactated Ringer's 1,000 ml @ 150 mls/hr Q6H40M IV Last administered on at 09:09; Start 10/21/17 at 14:00; Stop 10/22/17 at 10:58; Status DC Potassium Bicarb/ Potassium Chloride (K-Lyte Cl Eff) 25 meq ONCE ONCE NG Last administered on 10/21/17at 14:13; Start 10/21/17 at 14:00; Stop 10/21/17 at 14:01; Status DC Potassium Chloride 100 ml @ 50 mls/hr Q2H IV Last administered on 10/21/17at 15 :28; Start 10/21/17 at 14:00; Stop 10/21/17 at 17:59; Status DC Water (Free Water) 300 ml Q4HR G-TUBE Last administered on 10/24/17at 08:00; Start 10/21/17 at 20:00; Stop 10/24/17 at 09:07; Status DC Lactulose (Lactulose Liq) 30 ml QID PO Last administered on 10/23/17at 09:24; Start 10/21/17 at 18:00; Stop 10/23/17 at 16:40; Status DC Chlorothiazide Sodium (Diuril Inj) 250 mg ONCE ONCE IV Last administered on at 12:42; Start 10/22/17 at 12:15; Stop 10/22/17 at 12:16; Status DC Sodium Chloride 38.5 meq/Sterile Water 1,009.625 ml @ 50 mls/hr [id number] IV Last administered on 10/25/17at 21:42; Start 10/22/17 at 14:00; Stop 10/26/17 at 14:23; Status DC Amlodipine Besylate (Norvasc) 5 mg DAILY PO Last administered on 10/25/17at 08: 22; Start 10/23/17 at 09:00; Stop 10/25/17 at 09:35; Status DC Chlorothiazide Sodium (Diuril Inj) 500 mg ONCE ONCE IV Last administered on at 11:39; Start 10/23/17 at 10:30; Stop 10/23/17 at 10:38; Status DC Midazolam HCl (Versed Inj) 5 mg STK-MED ONCE .ROUTE ; Start 10/23/17 at 11:57; Stop 10/23/17 at 11:58; Status DC Midazolam HCl (Versed Inj) 4 mg NOW ONCE IV Last administered on 10/23/17at 15: 20; Start 10/23/17 at 15:15; Stop 10/23/17 at 15:16; Status DC Fentanyl Citrate 250 ml @ 5 mls/hr TITRATE PRN IV SEDATION Last administered on 10/24/17at 01:34; Start 10/23/17 at 18:00; Stop 10/24/17 at 17:39; Status DC Hydralazine HCl (Apresoline Inj) 20 mg Q4H PRN IV PUSH SBP>160, DBP>90; Start 10/23/17 at 20:45; Status UNV Lactulose (Lactulose Liq) 30 ml DAILY PRN PO SEVERE CONSITIPATION; Start at 21:30; Status Future Hold Water (Free Water) 400 ml Q4HR G-TUBE Last administered on 10/24/17at 12:00; Start 10/24/17 at 12:00; Stop 10/24/17 at 17:39; Status DC Chlorothiazide Sodium (Diuril Inj) 500 mg ONCE ONCE IV Last administered on at 10:27; Start 10/24/17 at 10:00; Stop 10/24/17 at 10:03; Status DC Dextrose (D50w (Vial) Inj) 50 ml UNSCH PRN IV PUSH HYPOGLYCEMIA-SEE COMMENTS; Start 10/24/17 at 21:00 Glucagon (Glucagon Inj) 1 mg UNSCH PRN OTHER HYPOGLYCEMIA-SEE COMMENTS; Start 10/24/17 at 21:00 Insulin Aspart (NovoLOG SUPPLEMENTAL SCALE) 1 Q4HR SQ Last administered on 10/27at 08:37; Start 10/24/17 at 21:00; Stop 10/27/17 at 16:20; Status DC Cefepime HCl 2000 mg/Sodium Chloride 100 ml @ 200 mls/hr Q12H IV Last administered on 10/31/17at 11:45; Start 10/25/17 at 09:00; Stop 10/31/17 at 11:54 ; Status DC Vancomycin HCl 1000 mg/Sodium Chloride 250 ml @ 250 mls/hr ONCE ONCE IV Last administered on 10/25/17at 10:23; Start 10/25/17 at 08:15; Stop 10/25/17 at 09:14 ; Status DC Insulin Detemir (Levemir Inj) 5 units Q12HR SQ Last administered on 11/05/17at 08 :37; Start 10/25/17 at 10:00 Amlodipine Besylate (Norvasc) 10 mg DAILY PO Last administered on 11/05/17at 08: 35; Start 10/26/17 at 09:00 Carvedilol (Coreg) 3.125 mg Q12HR PO Last administered on 11/02/17at 09:21; Start 10/25/17 at 09:45; Stop 11/02/17 at 11:42; Status DC Albuterol/ Ipratropium (Duoneb Neb) 1 ampule Q8HR NEB NEB Last administered on 10/29/17at 15:57; Start 10/25/17 at 16:00; Stop 10/29/17 at 15:59; Status DC Chlorothiazide Sodium (Diuril Inj) 500 mg ONCE ONCE IV Last administered on at 13:17; Start 10/25/17 at 10:45; Stop 10/25/17 at 10:55; Status DC Calcium Chloride (Calcium Chloride Inj) 1 gm STK-MED ONCE IV ; Start 10/19/17 at 05:00; Stop 10/25/17 at 22:13; Status DC Sodium Bicarbonate (Sodium Bicarbonate 8.4% Inj) 50 meq STK-MED ONCE IV ; Start 10/19/17 at 05:00; Stop 10/25/17 at 22:13; Status DC Furosemide (Lasix Inj) 40 mg ONCE ONCE IV PUSH Last administered on 10/26/17at 12:38; Start 10/26/17 at 08:00; Stop 10/26/17 at 08:07; Status DC Enoxaparin Sodium (Lovenox Inj) 40 mg Q24H SQ Last administered on 11/04/17at 08: 47; Start 10/26/17 at 08:00 Potassium Chloride 100 ml @ 50 mls/hr Q2H IV Last administered on 10/26/17at 12 :39; Start 10/26/17 at 10:00; Stop 10/26/17 at 13:59; Status DC Potassium Bicarb/ Potassium Chloride (K-Lyte Cl Eff) 25 meq ONCE ONCE PO Last administered on 10/26/17at 10:45; Start 10/26/17 at 09:15; Stop 10/26/17 at 09:21; Status DC Potassium Chloride 100 ml @ 50 mls/hr Q2H PRN IV For Potassium 2.8 - 3.2 mEq/L ; Start 10/27/17 at 05:15; Stop 10/28/17 at 07:50; Status DC Potassium Chloride 100 ml @ 50 mls/hr Q2H PRN IV For Potassium 2.8 - 3.2 mEq/ L Last administered on 10/27/17at 11:33; Start 10/27/17 at 05:15; Stop 10/28/17 at 07:50; Status DC Potassium Bicarb/ Potassium Chloride (K-Lyte Cl Eff) 50 meq UNSCH PRN PO For Potassium 3.3 - 3.5 mEq/L; Start 10/27/17 at 05:15; Stop 10/28/17 at 07:50; Status DC Potassium Chloride 100 ml @ 25 mls/hr UNSCH PRN IV For Potassium 3.3 - 3.5 mEq /L; Start 10/27/17 at 05:15; Stop 10/28/17 at 07:50; Status DC Potassium Chloride 100 ml @ 50 mls/hr Q2H PRN IV For Potassium 3.3 - 3.5 mEq/L ; Start 10/27/17 at 05:15; Stop 10/28/17 at 07:50; Status DC Magnesium Sulfate 4 gm/Sodium Chloride 100 ml @ 50 mls/hr UNSCH PRN IV For Magnesium 0.9 - 1.1 mg/dL; Start 10/27/17 at 05:15; Stop 10/28/17 at 07:50; Status DC Magnesium Oxide (Mag-Ox) 800 mg UNSCH PRN PO For Magnesium 1.2 - 1.6 mg/dL; Start 10/27/17 at 05:15; Stop 10/28/17 at 07:50; Status DC Magnesium Sulfate 2 gm/Sodium Chloride 100 ml @ 50 mls/hr UNSCH PRN IV For Magnesium 1.2 - 1.6 mg/dL; Start 10/27/17 at 05:15; Stop 10/28/17 at 07:50; Status DC Potassium Phosphate (K-Phos) 2,000 mg Q4H PRN PO For Phosphorus < 2.5 mg/dL; Start 10/27/17 at 05:15; Stop 10/28/17 at 07:50; Status DC Sodium Phosphate 30 mmol/Sodium Chloride 250 ml @ 42 mls/hr UNSCH PRN IV For Phosphorus < 2.5 mg/dL Last administered on 10/27/17at 11:32; Start 10/27/17 at 05:15; Stop 10/28/17 at 07:50; Status DC Potassium Phosphate (K-Phos) 2,000 mg UNSCH PRN PO/TUBE SEE LABEL COMMENTS; Start 10/27/17 at 05:15; Stop 10/28/17 at 07:50; Status DC Potassium Phosphate 30 mmol/ Sodium Chloride 260 ml @ 42 mls/hr UNSCH PRN IV SEE LABEL COMMENTS; Start 10/27/17 at 05:15; Stop 10/28/17 at 07:50; Status DC Pantoprazole Sodium (Protonix) 40 mg Q12HR PO Last administered on 11/05/17 08: 35; Start 10/27/17 at 21:00 Hydralazine HCl (Apresoline) 50 mg Q8HR PO Last administered on 11/05/17 13:04 ; Start 10/27/17 at 22:00 Insulin Aspart (NovoLOG SUPPLEMENTAL SCALE) 1 ACHS SLIDING SCALE SQ Last administered on 11/04/17 12:04; Start 10/27/17 at 17:00 Nystatin (Mycostatin Powder) 1 applic Q12HR TOPICAL Last administered on 08:40; Start 10/27/17 at 21:00 Diatrizoate Meglum/ Diatrizoate Sod ( Gastroview Liq) 18 ml ONCE ONCE PO Last administered on 10/27/17at 20:02; Start 10/27/17 at 17:10; Stop 10/27/17 at 17:37; Status DC Potassium Chloride (KCl) 40 meq ONCE ONCE PO Last administered on 10/28/17at 05 :34; Start 10/28/17 at 05:30; Stop 10/28/17 at 05:31; Status DC Potassium Chloride (KCl) 30 meq ONCE ONCE PO Last administered on 10/28/17at 11 :56; Start 10/28/17 at 10:45; Stop 10/28/17 at 10:46; Status DC Potassium Chloride (KCl) 30 meq ONCE ONCE PO Last administered on 10/28/17at 14 :31; Start 10/28/17 at 15:00; Stop 10/28/17 at 15:01; Status DC Metronidazole (Flagyl) 500 mg Q8HR PO Last administered on 11/01/17at 05:08; Start 10/29/17 at 14:00; Stop 11/01/17 at 09:21; Status DC Potassium Chloride (KCl) 30 meq ONCE ONCE PO Last administered on 10/29/17at 11 :48; Start 10/29/17 at 10:15; Stop 10/29/17 at 10:21; Status DC Potassium Chloride (KCl) 30 meq ONCE ONCE PO Last administered on 10/29/17at 14 :05; Start 10/29/17 at 14:00; Stop 10/29/17 at 14:01; Status DC Potassium Chloride (KCl) 30 meq ONCE ONCE PO Last administered on 10/29/17at 18 :26; Start 10/29/17 at 18:00; Stop 10/29/17 at 18:01; Status DC Tramadol HCl (Ultram) 50 mg Q8H PRN PO PAIN 5-10 Last administered on 11/05/17at 01:55; Start 10/29/17 at 13:15 Vancomycin HCl 1000 mg/Sodium Chloride 250 ml @ 250 mls/hr ONCE ONCE IV Last administered on 10/30/17at 15:33; Start 10/30/17 at 09:45; Stop 10/30/17 at 10:44 ; Status DC Potassium Chloride (KCl) 40 meq ONCE ONCE PO Last administered on 10/30/17at 12 :04; Start 10/30/17 at 09:45; Stop 10/30/17 at 09:46; Status DC Potassium Chloride (KCl) 40 meq ONCE ONCE PO Last administered on 10/30/17at 15 :30; Start 10/30/17 at 14:00; Stop 10/30/17 at 14:05; Status DC Potassium Chloride (KCl) 40 meq ONCE ONCE PO Last administered on 10/31/17at 11 :16; Start 10/31/17 at 13:00; Stop 10/31/17 at 13:01; Status DC Potassium Chloride (KCl) 40 meq ONCE ONCE PO Last administered on 10/31/17at 16 :25; Start 10/31/17 at 17:00; Stop 10/31/17 at 17:01; Status DC Pharmacy Profile Note 0 ml @ 0 mls/hr UNSCH OTHER ; Start 10/31/17 at 12:00 Ceftriaxone Sodium 2000 mg/ Sodium Chloride 100 ml @ 200 mls/hr Q24H IV Last administered on 11/05/17at 12:48; Start 10/31/17 at 13:00 Vancomycin HCl 1500 mg/Sodium Chloride 515 ml @ 257.5 mls/ hr Q12H IV Last administered on 11/01/17at 15:31; Start 10/31/17 at 15:00; Stop 11/01/17 at 17:55 ; Status DC Miscellaneous Information ([facility] [facility] Info) SPECIFIC LAB TO BE ... ONCE ONCE .XX ; Start 11/01/17 at 14:45; Stop 11/01/17 at 14:46; Status DC Magnesium Sulfate/ Dextrose 100 ml @ 100 mls/hr ONCE ONCE IV Last administered on 10/31/17at 15:29; Start 10/31/17 at 15:00; Stop 10/31/17 at 15:59 ; Status DC Potassium Chloride (KCl Powder) 40 meq Q12H PO Last administered on 11/02/17at 01 :04; Start 11/01/17 at 14:30; Stop 11/02/17 at 02:31; Status DC Magnesium Sulfate/ Dextrose 100 ml @ 100 mls/hr Q1H IV ; Start 11/01/17 at 15: 00; Stop 11/01/17 at 15:49; Status DC Magnesium Sulfate/ Dextrose 100 ml @ 100 mls/hr Q1H IV Last administered on at 21:15; Start 11/01/17 at 19:00; Stop 11/01/17 at 20:59; Status DC Vancomycin HCl 1150 mg/Sodium Chloride 261.5 ml @ 250 mls/hr Q8H IV Last administered on 11/05/17at 08:34; Start 11/02/17 at 00:00 Miscellaneous Information ([facility] Ordered Lab Info) SPECIFIC LAB TO BE DRAWN: VANCO TROUGH DATE TO... ONCE ONCE .XX ; Start 11/02/17 at 15:45; Stop 11/02/17 at 15:46; Status DC Carvedilol (Coreg) 3.125 mg ONCE ONCE PO Last administered on 11/02/17at 13:44; Start 11/02/17 at 12:00; Stop 11/02/17 at 12:01; Status DC Carvedilol (Coreg) 6.25 mg Q12HR PO Last administered on 11/05/17at 08:35; Start 11/02/17 at 21:00 Alprazolam (Xanax) 0.25 mg Q6HR PRN PO anxiety Last administered on 11/05/17at 12 :48; Start 11/03/17 at 12:30 Gadodiamide (Omniscan Pf Inj) 20 ml STK-MED ONCE IVCONTRAST Last administered on 11/03/17at 13:45; Start 11/03/17 at 13:45; Stop 11/03/17 at 13:46; Status DC Acetaminophen (Tylenol) 325 mg Q4H PRN PO Fever > 100.4 Last administered on 11/03/17at 18:58; Start 11/03/17 at 18:45 Potassium Bicarbonate (Effer-K Eff) 75 meq ONCE ONCE PO Last administered on at 14:26; Start 11/04/17 at 14:00; Stop 11/04/17 at 14:03; Status DC Cholestyramine Resin (Questran 4 Gm Pkt) 4 gm DAILY PO Last administered on 11/05at 08:35; Start 11/05/17 at 09:00 Miscellaneous Information ([facility] Ordered [facility] Info) SPECIFIC LAB TO BE HECTOR... ONCE ONCE .XX ; Start 11/06/17 at 07:45; Stop 11/06/17 at 07:46 Date of Insertion: October 19, 2017 A/P Problem List: (1) Acute respiratory failure ICD Code: J96.00 - Acute respiratory failure, unspecified whether with hypoxia or hypercapnia (2) Acute encephalopathy ICD Code: G93.40 - Encephalopathy, unspecified Status: Acute (3) Normocytic anemia ICD Code: D64.9 - Anemia, unspecified (4) Lactic acidosis ICD Code: E87.2 - Acidosis Status: Acute (5) Hypoalbuminemia ICD Code: E88.09 - Other disorders of plasma-protein metabolism, not elsewhere classified (6) Hypophosphatemia ICD Code: E83.39 - Other disorders of phosphorus metabolism Status: Acute (7) Hypokalemia ICD Code: E87.6 - Hypokalemia Status: Acute (8) Hypermagnesemia ICD Code: E83.41 - Hypermagnesemia (9) Acute kidney injury ICD Code: N17.9 - Acute kidney failure, unspecified Status: Acute (10) Leukocytosis ICD Code: D72.829 - Elevated white blood cell count, unspecified Status: Acute (11) Hyponatremia ICD Code: E87.1 - Hypo-osmolality and hyponatremia Status: Acute (12) Hypertension ICD Code: I10 - Essential (primary) hypertension (13) Pyrexia ICD Code: R50.9 - Fever, unspecified Status: Acute (14) Depression ICD Code: F32.9 - Major depressive disorder, single episode, unspecified (15) Ketoacidosis due to secondary diabetes ICD Code: E13.10 - Other specified diabetes mellitus with ketoacidosis without coma Status: Acute (16) BMI 37.0-37.9, adult ICD Code: Z68.37 - Body mass index (BMI) 37.0-37.9, adult Status: Acute Assessment and Plan Endocarditis, sepsis, fevers Patient has multiple embolic lesions, SHASHI shows aortic valve vegetation 0.7 x 0.8 cm Patient continues to show low-grade fevers Awaiting slow-growing cultures from microbiology Infectious disease recommends staying with Rocephin and vancomycin for now If fevers persist consider HACEK work up and addition of doxycycline for expanded coverage if ID agrees (for culture negative endocarditis) Appreciate infectious disease consult Appreciate cardiology workup Hypertension Continue Norvasc, Coreg,and hydralazine. Anxiety Xanax added Acute hypoxic and hypercarbic respiratory failure Extubated 10/24/2017, doing well on nasal cannula oxygen Pulmonology consulted for abnormalities on imaging Upper GI bleed By patient history he vomited blood with some clots 2 weeks prior to admission Gastroenterology consulted Continue pantoprazole Acute hyperglycemic state Continue sliding-scale insulin with Accu-Cheks Continue Levemir 5 U q12h, hemoglobin A1c 13. Diabetic diet Tinea cruris Continue nystatin Hypokalemia will replace PATIENT TO HAVE BRONCHOSCOPY TODAY DW RN AND PT AND CM DVT prophylaxis Lovenox Discharge Planning Pending clearance by infectious disease and others Problem Qualifiers (1) Acute respiratory failure: Qualified Codes: J96.01 - Acute respiratory failure with hypoxia; J96.02 - Acute respiratory failure with hypercapnia (2) Pyrexia: Qualified Codes: R50.9 - Fever, unspecified (3) Depression: Qualified Codes: F32.9 - Major depressive disorder, single episode, unspecified Tramaine Navarro DO Nov 05, 2017 13:12
[2017-11-05] MEDS ORDERED: chlordiazePOXIDE 25 MG CAP PO PRN (13:15)
[2017-11-05] MEDS ORDERED: POTASSIUM CHLORIDE 25 MEQ EFFERVESCENT TAB PO ONE (13:15)
--- NOTE | 2017-11-05 13:50 | HHI.IDPN ---
Subjective Subjective Remarks Patient is a 42-year-old male, brought into the hospital for evaluation of multiple symptoms. He apparently has been having problem with poor p.o. intake , and thirst and increasing fluid intake. There is also mention that he has had problem with nausea and vomiting and some confusion. The symptoms have been going on for about a month. Was brought into the emergency room, and he was found to have a blood sugar of 1800, creatinine was up to 3, sodium 21, and he has multiple abnormal electrolytes. He also had acidosis, and high fevers. His white count was elevated. In the ED he became more unresponsive, and he ended up getting intubated. He was initially on pressors. He was also found to have a very elevated CPK. His electrolytes stabilized, and his acidosis improved. Creatinine improved, and he has improvement in his urine output. He had 2 blood cultures done and those are negative. He was started on empiric antibiotics for possible aspiration. Initial urinalysis was unremarkable. Patient remains on the vent. His mental status still has not improved. Neurology has been consulted. Patient's temperatures seem to have improved. His chest x-ray showing bilateral pulmonary infiltrates and some nodular infiltrates. He has been getting vancomycin, cefepime, and Flagyl. His CPKs are still elevated, and his LFTs were also elevated. Patient also during his hospitalization had episode of V. tach and was resuscitated successfully. Infectious disease consultation has been requested to evaluate patient with high fevers. Notes reviewed Temps better Appreciate pulmonary evaluation Bronch scheduled for today BC negative so far Qfever negative Bartonella negative Last CXR with worsening infiltrates SHASHI has vegetation small in AV BP ok C/O mild abdominal pain WBC lower at 14K HIV negative Hepatitis negative Antibiotics Rocephin Vancomycin Current Medications Medications (Trade) Dose Ordered Sig/Jacky Route Start Time Stop Time Status Last Admin (NS Flush) 2 ml UNSCH PRN IV FLUSH 10/19/17 02:30 (NS Flush) 2 ml BID IV FLUSH 10/19/17 09:00 11/05/17 08:34 (Albuterol Neb) 2.5 mg Q2HR NEB PRN INH 10/19/17 02:30 10/24/17 08:36 ([facility] [place] [facility]) 1 Q361D XX 10/19/17 02:30 10/19/17 02:30 (Chlorhexidine 2% Cloth) Taper DAILY@04 TOP 10/19/17 04:00 10/15/18 03:59 10/27/17 04:00 (Chlorhexidine 2% Cloth) 3 pack UNSCH PRN TOP 10/19/17 02:30 (Milk Of Magnesia Liq) 30 ml Q12H PRN PO 10/19/17 02:30 Future Hold (Senokot) 17.2 mg Q12H PRN PO 10/19/17 02:30 Future Hold (Dulcolax Supp) 10 mg DAILY PRN RECTAL 10/19/17 02:30 (Zofran Odt) 4 mg Q6H PRN PO 10/19/17 02:30 10/29/17 23:44 (Tears Naturale Opth Soln) 1 drop Q8HR EACH EYE 10/19/17 06:00 11/05/17 13:02 (Peridex 0.12% Liq) 15 ml BID@08,20 MT 10/19/17 08:00 11/04/17 08:47 Acetaminophen 100 ml @ 400 mls/hr Q8H PRN IV 10/19/17 03:30 11/02/17 10:54 (Brethine Inj) 1 mg UNSCH PRN SQ 10/19/17 07:45 (Lactulose Liq) 30 ml DAILY PRN PO 10/23/17 21:30 Future Hold (D50w (Vial) Inj) 50 ml UNSCH PRN IV PUSH 10/24/17 21:00 (Glucagon Inj) 1 mg UNSCH PRN OTHER 10/24/17 21:00 (Levemir Inj) 5 units Q12HR SQ 10/25/17 10:00 11/05/17 08:37 (Norvasc) 10 mg DAILY PO 10/26/17 09:00 11/05/17 08:35 (Lovenox Inj) 40 mg Q24H SQ 10/26/17 08:00 11/04/17 08:47 (Protonix) 40 mg Q12HR PO 10/27/17 21:00 11/05/17 08:35 (Apresoline) 50 mg Q8HR PO 10/27/17 22:00 11/05/17 13:04 (NovoLOG SUPPLEMENTAL SCALE) 1 ACHS SLIDING SCALE SQ 10/27/17 17:00 11/04/17 12:04 (Mycostatin Powder) 1 applic Q12HR TOPICAL 10/27/17 21:00 11/05/17 08:40 (Ultram) 50 mg Q8H PRN PO 10/29/17 13:15 11/05/17 01:55 Pharmacy Profile Note 0 ml @ 0 mls/hr UNSCH OTHER 10/31/17 12:00 Ceftriaxone Sodium 2000 mg/ Sodium Chloride 100 ml @ 200 mls/hr Q24H IV 10/31/17 13:00 11/05/17 12:48 Vancomycin HCl 1150 mg/Sodium Chloride 261.5 ml @ 250 mls/hr Q8H IV 11/02/17 00:00 11/05/17 08:34 (Coreg) 6.25 mg Q12HR PO 11/02/17 21:00 11/05/17 08:35 (Xanax) 0.25 mg Q6HR PRN PO 11/03/17 12:30 11/05/17 12:48 (Tylenol) 325 mg Q4H PRN PO 11/03/17 18:45 11/03/17 18:58 (Questran 4 Gm Pkt) 4 gm DAILY PO 11/05/17 09:00 11/05/17 08:35 ([facility] [place] [facility] Ordered Lab Info) SPECIFIC LAB TO BE ... ONCE ONCE .XX 11/06/17 07:45 11/06/17 07:46 (Librium) 50 mg TID PRN PO 11/05/17 13:15 Lines PIV no evidence of infection Past Medical History Depression/anxiety Hypertension NSAID use Allergies: Coded Allergies: No Known Allergies (Unverified Allergy, Unknown, 10/18/17) Objective . Vital Signs Date Time Temp Pulse Resp B/P (MAP) Pulse Ox O2 Delivery O2 Flow Rate FiO2 11/05/17 09:42 Nasal Cannula 2.00 11/05/17 08:11 98.7 107 16 136/70 (92) 98 11/05/17 07:47 106 11/05/17 04:00 104 11/05/17 04:00 Nasal Cannula 2.00 11/05/17 04:00 99.7 102 17 142/72 (95) 95 11/05/17 00:00 99.5 95 18 138/88 (105) 94 11/04/17 20:00 99.5 100 17 146/92 (110) 94 11/04/17 20:00 Nasal Cannula 2.00 11/04/17 20:00 113 11/04/17 16:00 99.2 101 20 156/101 (119) 95 11/04/17 16:00 108 11/04/17 15:00 Nasal Cannula 2.00 21 . Laboratory Tests Test 11/04/17 22:25 11/05/17 08:18 White Blood Count 15.4 TH/MM3 14.0 TH/MM3 Red Blood Count 3.04 MIL/MM3 3.03 MIL/MM3 Hemoglobin 8.2 GM/DL 8.2 GM/DL Hematocrit 24.6 % 24.5 % Mean Corpuscular Volume 80.8 FL 81.0 FL Mean Corpuscular Hemoglobin 27.0 PG 27.2 PG Mean Corpuscular Hemoglobin Concent 33.4 % 33.6 % Red Cell Distribution Width 16.4 % 16.0 % Platelet Count 755 TH/MM3 786 TH/MM3 Mean Platelet Volume 8.7 FL 8.8 FL Neutrophils (%) (Auto) 66.3 % 62.9 % Lymphocytes (%) (Auto) 16.7 % 19.0 % Monocytes (%) (Auto) 13.2 % 12.3 % Eosinophils (%) (Auto) 3.4 % 3.7 % Basophils (%) (Auto) 0.4 % 2.1 % Neutrophils # (Auto) 10.2 TH/MM3 8.8 TH/MM3 Lymphocytes # (Auto) 2.6 TH/MM3 2.7 TH/MM3 Monocytes # (Auto) 2.0 TH/MM3 1.7 TH/MM3 Eosinophils # (Auto) 0.5 TH/MM3 0.5 TH/MM3 Basophils # (Auto) 0.1 TH/MM3 0.3 TH/MM3 CBC Comment DIFF FINAL DIFF FINAL Differential Comment Laboratory Tests Test 11/04/17 11:15 11/04/17 22:25 11/05/17 08:18 Blood Urea Nitrogen 6 MG/DL 6 MG/DL 6 MG/DL Creatinine 0.84 MG/DL 0.77 MG/DL 0.84 MG/DL Random Glucose 173 MG/DL 122 MG/DL 110 MG/DL Total Protein 6.8 GM/DL 7.0 GM/DL Albumin 2.2 GM/DL 2.3 GM/DL Calcium Level 8.1 MG/DL 8.5 MG/DL 8.3 MG/DL Alkaline Phosphatase 143 U/L 151 U/L Aspartate Amino Transf (AST/SGOT) 89 U/L 99 U/L Alanine Aminotransferase (ALT/SGPT) 70 U/L 77 U/L Total Bilirubin 0.4 MG/DL 0.4 MG/DL Sodium Level 141 MEQ/L 140 MEQ/L 140 MEQ/L Potassium Level 3.3 MEQ/L 3.5 MEQ/L 3.5 MEQ/L Chloride Level 106 MEQ/L 106 MEQ/L 106 MEQ/L Carbon Dioxide Level 23.7 MEQ/L 22.8 MEQ/L 24.3 MEQ/L Anion Gap 11 MEQ/L 11 MEQ/L 10 MEQ/L Estimat Glomerular Filtration Rate 123 ML/MIN 136 ML/MIN 123 ML/MIN Phosphorus Level 3.6 MG/DL Magnesium Level 1.7 MG/DL Free Thyroxine 1.47 NG/DL Thyroid Stimulating Hormone 3rd Gen 3.420 uIU/ML Imaging Last 72 hours Impressions Abdomen/Pelvis CT 10/27/17 Signed Impressions: CONCLUSION: 1. No evidence of retroperitoneal hemorrhage. 2. Bibasilar subsegmental airspace disease and small bilateral effusions. 3. Patchy areas of hypodensity throughout the liver and spleen of uncertain et iology. Considering patient's history a septic vascular embolic process should be considered. 4. Minimal air in the urinary bladder. 5. Developing anasarca. Chest X-Ray 10/26/17599 Signed Impressions: CONCLUSION: Diffuse consolidation likely related to diffuse underlying processes such as ed aaron or diffuse inflammatory change. Last 72 hours Impressions Chest X-Ray 10/24/17599 Signed Impressions: CONCLUSION: No significant change. Bilateral pulmonary opacities remain. Head CT 10/24/17 Signed Impressions: CONCLUSION: 1. No acute intracranial abnormality. Gall Bladder Ultrasound 10/23/17 Signed Impressions: CONCLUSION: 1. There is increased echogenicity of the liver suggestive of fatty infiltrati on and/or hepatocellular disease. 2. No evidence of gallstones or biliary tract obstruction. Chest X-Ray 10/23/17 Signed Impressions: CONCLUSION: Scattered bilateral pulmonary infiltrates. Last Impressions Gall Bladder Ultrasound 10/23/17 Signed Impressions: CONCLUSION: Chest X-Ray 10/23/17 Signed Impressions: CONCLUSION: Scattered bilateral pulmonary infiltrates. Renal Ultrasound 10/19/17 0000 Signed Impressions: Service Date/Time: Thursday, October 19, 2017 09:46 - CONCLUSION: Normal examination. Alexx Baig MD Physical Exam GENERAL: Awake and alert, NAD. SKIN: Cool and dry. No generalized rash. HEAD: Atraumatic. Normocephalic. No temporal wasting, or tenderness. EYES: Pattison conjunctiva. No petechia or hemorrhage. Has dirty sclera. EARS, NOSE AND THROAT: Nose without bleeding or purulent nasal discharge. Moist mucosa NECK: Trachea midline. Supple and not tender, no meningeal signs CARDIOVASCULAR: Regular rate and rhythm. No murmurs, rubs or gallops heard RESPIRATORY: Decreased BS at bases ABDOMEN: Distended, mild tenderness, not guarding, bowel sounds present and hypoactive. EXTREMITIES: Warm, has pitting edema. Has embolic lesions tip of 3 fingers on his R hand NEUROLOGICAL: Grossly non-focal PSYCHIATRIC: Calm and cooperative LINE: No evidence of infection Assessment & Plan Remarks IMPRESSION Possible sepsis on initial presentation with fevers, dec LOC, MOSF - better - source possible lung, has aishwarya nodular infiltrates, BC negative, no sputum C/S Has multiple embolic lesions, source? - his BC have been negative - initial echo ok Endocarditis - C/S have been negative on admission - ?Culture negative endocarditis Aishwarya pulmonary infiltrates, etiology? - ?inflammatory DM, DKA Elevated CPK Elevated LFTs Renal failure Acidosis, resolved Encephalopathy, ?metabolic, or CROTCH PIECE BASTER etiology, resolved Leukocytosis, persistent, but decreasing Anemia Diarrhea, C Diff negative RECOMMENDATION Continue Rocephin Continue Vancomycin Pulmonary evaluation of bilateral infiltrates Follow CBC Follow C/S Follow temps Monitor progress Haley Sanchez MD Nov 05, 2017 13:50
--- NOTE | 2017-11-05 14:29 | HHI.GIFU ---
Subjective Remarks Pt resting in bed Currently NPO for bronchoscopy today Some mild abdominal pain Denies nausea, vomiting Soft BMs (Maylin Almonte) Objective Vitals I&O Vital Signs Date Time Temp Pulse Resp B/P (MAP) Pulse Ox O2 Delivery O2 Flow Rate FiO2 11/05/17 11:51 107 11/05/17 09:42 Nasal Cannula 2.00 11/05/17 08:11 98.7 107 16 136/70 (92) 98 11/05/17 07:47 106 11/05/17 04:00 104 11/05/17 04:00 Nasal Cannula 2.00 11/05/17 04:00 99.7 102 17 142/72 (95) 95 11/05/17 00:00 99.5 95 18 138/88 (105) 94 11/04/17 20:00 99.5 100 17 146/92 (110) 94 11/04/17 20:00 Nasal Cannula 2.00 11/04/17 20:00 113 11/04/17 16:00 99.2 101 20 156/101 (119) 95 11/04/17 16:00 108 11/04/17 15:00 Nasal Cannula 2.00 21 I/O 11/04/17 11/04/17 11/04/17 11/05/17 11/05/17 11/05/17 07:00 15:00 23:00 07:00 15:00 23:00 Intake Total 2500 ml 361.6 ml 501.6 ml 261.5 ml 361.5 ml Output Total 4000 ml 1875 ml Balance -1500 ml 361.6 ml -1373.4 ml 261.5 ml 361.5 ml Intake Oral 2500 ml 240 ml IV Total 361.6 ml 261.6 ml 261.5 ml 361.5 ml Output Urine Total 4000 ml 1875 ml # Bowel Movements 0 1 Laboratory Laboratory Tests Test 11/04/17 22:25 11/05/17 08:18 White Blood Count 15.4 14.0 Red Blood Count 3.04 3.03 Hemoglobin 8.2 8.2 Hematocrit 24.6 24.5 Mean Corpuscular Volume 80.8 81.0 Mean Corpuscular Hemoglobin 27.0 27.2 Mean Corpuscular Hemoglobin Concent 33.4 33.6 Red Cell Distribution Width 16.4 16.0 Platelet Count 755 786 Mean Platelet Volume 8.7 8.8 Neutrophils (%) (Auto) 66.3 62.9 Lymphocytes (%) (Auto) 16.7 19.0 Monocytes (%) (Auto) 13.2 12.3 Eosinophils (%) (Auto) 3.4 3.7 Basophils (%) (Auto) 0.4 2.1 Neutrophils # (Auto) 10.2 8.8 Lymphocytes # (Auto) 2.6 2.7 Monocytes # (Auto) 2.0 1.7 Eosinophils # (Auto) 0.5 0.5 Basophils # (Auto) 0.1 0.3 CBC Comment DIFF FINAL DIFF FINAL Differential Comment Prothrombin Time 12.2 Prothromb Time International Ratio 1.2 Activated Partial Thromboplast Time 28.1 Blood Urea Nitrogen 6 6 Creatinine 0.77 0.84 Random Glucose 122 110 Calcium Level 8.5 8.3 Sodium Level 140 140 Potassium Level 3.5 3.5 Chloride Level 106 106 Carbon Dioxide Level 22.8 24.3 Anion Gap 11 10 Estimat Glomerular Filtration Rate 136 123 Total Protein 7.0 Albumin 2.3 Phosphorus Level 3.6 Magnesium Level 1.7 Alkaline Phosphatase 151 Aspartate Amino Transf (AST/SGOT) 99 Alanine Aminotransferase (ALT/SGPT) 77 Total Bilirubin 0.4 Free Thyroxine 1.47 Thyroid Stimulating Hormone 3rd Gen 3.420 Date/Time Source Procedure Growth Status 10/31/17 13:28 Blood Peripheral Aerobic Blood Culture - Final NO GROWTH IN 5 DAYS Complete 10/31/17 13:28 Blood Peripheral Anaerobic Blood Culture - Final NO GROWTH IN 5 DAYS Complete 10/24/17 09:40 Cerebral Spinal Fluid Lumbar Puncture Acid Fast Stain - Final NO ACID FAST BACILLI SEEN Resulted 10/24/17 09:40 Cerebral Spinal Fluid Lumbar Puncture Mycobacterial Culture - Preliminary NO GROWTH IN 1 WEEK Resulted 10/22/17 18:15 Sputum Endotracheal Gram Stain - Final Complete 10/22/17 18:15 Sputum Endotracheal Sputum Culture - Final HEAVY GROWTH NORMAL RESPIRATORY SAAD Complete 10/18/17 00:00 Urine Catheterized Urine Legionella Antigen - Final PRESUMPTIVE NEGATIVE FOR LEGIONELLA P... Complete 10/18/17 00:00 Urine Catheterized Urine Streptococcus pneumoniae Antigen (M - Final PRESUMPTIVE NEGATIVE FOR STREPTOCOCCU... Complete Imaging Last Impressions Abdomen MRI 11/03/17 0000 Signed Impressions: CONCLUSION: 1. Nonspecific heterogeneous signal and enhancement pattern of the liver as de scribed above and not convincingly changed from the prior CT. This is not parti cularly masslike or with organized fluid. A transient phenomenon related to hep atomegaly and/or hepatocellular disease is thought most likely. Hepatic abscess es are considered unlikely. 2. Small spleen and it also has diffusely heterogeneous signal and enhancement . Acute or subacute superimposed on chronic splenic infarcts are considered mos t likely. No significant change from the CT. In addition, no particularly mass like area and also no evidence of organized fluid so splenic abscesses are cons idered less likely. Chest X-Ray 11/01/17 Signed Impressions: CONCLUSION: Diffuse bilateral patchy airspace disease again seen Abdomen/Pelvis CT 10/27/17 Signed Impressions: CONCLUSION: 1. No evidence of retroperitoneal hemorrhage. 2. Bibasilar subsegmental airspace disease and small bilateral effusions. 3. Patchy areas of hypodensity throughout the liver and spleen of uncertain et iology. Considering patient's history a septic vascular embolic process should be considered. 4. Minimal air in the urinary bladder. 5. Developing anasarca. Chest CT 10/25/17 Signed Impressions: CONCLUSION: 1. Multiple bilateral scattered interstitial and airspace infiltrates througho ut both lung yuen suggestive of some type of inflammatory process. 2. Abnormal appearance of the liver. Recommend CT scan of the abdomen with IV contrast for further evaluation. Brain MRI 10/25/17 Signed Impressions: CONCLUSION: 1. Unremarkable MRI examination of the brain. Specifically, no cerebral edema or diffusion abnormality to suggest encephalitis. Head CT 10/24/17 Signed Impressions: CONCLUSION: 1. No acute intracranial abnormality. Gall Bladder Ultrasound 10/23/17 Signed Impressions: CONCLUSION: 1. There is increased echogenicity of the liver suggestive of fatty infiltrati on and/or hepatocellular disease. 2. No evidence of gallstones or biliary tract obstruction. Renal Ultrasound 10/19/17 Signed Impressions: Service Date/Time: Thursday, October 19, 2017 09:46 - CONCLUSION: Normal examination. Alexx Baig MD Physical Exam HEENT: Normocephalic; atraumatic CHEST: Even/unlabored CARDIAC: RRR ABDOMEN: Soft, nondistended, mid abdominal tenderness, bowel sounds active EXTREMITIES: No clubbing, cyanosis, or edema. SKIN: Normal; no rash; no jaundice. MATERIALS ASSISTANT: Alert and oriented times three. (Maylin Almonte) Assessment and Plan Plan Assessment: - Transaminitis- LFTs were WNL on admission and then elevated some on the and significantly on October 20 with the AST being over 9000 and have since been trending down. Pt was very hypotensive on the and this elevation was likely secondary to shocked liver. Denies ETOH in 8 months- was incarcerated and recently has been in rehab for 4 months. Denies history of IV drug use, does report history of cocaine use but none in 8 months. Hepatitis panel negative. Multiple tattoos, approximates 30. Unprotected sexual intercourse, recently with one partner but has had multiple partners. Denies personal history of liver issues. Thinks his mom of liver issues and states she did not drink ETOH. Iron-15 TIBC-168 %sat-8.9 Ferritin-1331 CT abdomen and pelvis W/O IV contrast --> No evidence of retroperitoneal hemorrhage. Bibasilar subsegmental airspace disease and small bilateral pleural effusions. Patchy areas of hypodensity throughout the liver and spleen of uncertain etiology. Minimal air in urinary bladder. Developing anasarca - Hematemesis- Pt reports one episodes prior to admission. Denies history of GIB. Has never had EGD or colonoscopy. H/H 01/24.4 - Diarrhea- reports multiple episodes daily with incontinence, began after admission. Denies blood in stool. C. Diff last tested on 10/27 negative. (11/04) Continued abdominal pain. Denies nausea, vomiting. LFTs trending down significant. MRI noted MRI abdomen W and WO contrast --> Nonspecific heterogeneous signal and enhancement pattern of the liver as described above and not convincingly changed from the prior CT. This is not particularly masslike or with organized fluid. A transient phenomenon related to hepatomegaly and/or hepatocellular disease is thought most likely. Hepatic abscesses are considered unlikely. Small spleen and it also has diffusely heterogeneous signal and enhancement. Acute or subacute superimposed on chronic splenic infarcts are considered most likely. No significant change from the CT. In addition, no particularly mass like area and also no evidence of organized fluid so splenic abscesses are considered less likely. (11/05) No significant changes overnight. Pt NPO for bronchoscopy today. Plan: Cholestyramine Liver work up pending- can follow up outpatient- was likely secondary to shock liver Monitor H/H Protonix Not much to add from a GI standpoint, our service will sign off, please reconsult as needed Have pt follow up with GI after discharge Pt has been seen and examined by myself and Dr. Salinas and this note is written on his behalf (Maylin Almonte) Physician Comments As above, agree with the assessment and plan. Please notify us if needed again. (Natalie Salinas MD) Maylin Almonte Nov 05, 2017 14:29 Natalie Salinas MD Nov 05, 2017 14:51
--- NOTE | 2017-11-05 18:05 | HHI.PR ---
Subjective Remarks 42 YOAA male with Bipolar disorder, Lung infilt, fever No Sputum Denies sob no CP Broch could't be done due to anesthesia availablity Objective Vital Signs Vital Signs Date Time Temp Pulse Resp B/P (MAP) Pulse Ox O2 Delivery O2 Flow Rate FiO2 11/05/17 17:26 93 21 11/05/17 15:52 106 11/05/17 11:51 107 11/05/17 09:42 Nasal Cannula 2.00 11/05/17 08:11 99.2 103 18 132/83 (99) 93 11/05/17 08:11 98.7 107 16 136/70 (92) 98 11/05/17 07:47 106 11/05/17 04:00 104 11/05/17 04:00 Nasal Cannula 2.00 11/05/17 04:00 99.7 102 17 142/72 (95) 95 11/05/17 00:00 99.5 95 18 138/88 (105) 94 11/04/17 20:00 99.5 100 17 146/92 (110) 94 11/04/17 20:00 Nasal Cannula 2.00 11/04/17 20:00 113 I/O 11/04/17 11/04/17 11/04/17 11/05/17 11/05/17 11/05/17 07:00 15:00 23:00 07:00 15:00 23:00 Intake Total 2500 ml 361.6 ml 501.6 ml 261.5 ml 361.5 ml Output Total 4000 ml 1875 ml Balance -1500 ml 361.6 ml -1373.4 ml 261.5 ml 361.5 ml Intake Oral 2500 ml 240 ml IV Total 361.6 ml 261.6 ml 261.5 ml 361.5 ml Output Urine Total 4000 ml 1875 ml # Bowel Movements 0 1 Result Diagram: 11/05/1718 11/05/17817 Objective Remarks GENERAL: WBWN AA male, NAD SKIN: Warm and dry. HEAD: Normocephalic. EYES: No scleral icterus. No injection or drainage. NECK: Supple, trachea midline. No JVD or lymphadenopathy. CARDIOVASCULAR: Regular rate and rhythm without murmurs, gallops, or rubs. RESPIRATORY: Breath sounds equal bilaterally. No accessory muscle use. GASTROINTESTINAL: Abdomen soft, non-tender, nondistended. MUSCULOSKELETAL: No cyanosis, or edema. BACK: Nontender without obvious deformity. No CVA tenderness. A/P Assessment and Plan IMPRESSION: 1. Bilateral lung infiltrate with ongoing fever. He has been treated with antibiotic. Cultures have been negative. Possibility of inflammatory process of the lung or alveolitis. 2. Diabetes mellitus. 3. Renal insufficiency has improved. 4. Benign prostatic hypertrophy. 5. Bipolar disorder. PLAN: Cont Abx Check Coag Dw Pt and his sister Explained Bronch procedure and complications He wants to proceed DRAKE Pt Will reschedule bronch Han Gonsalves MD Nov 05, 2017 18:05
--- NOTE | 2017-11-05 18:31 | HHI.HCPN ---
Reason for visit a. To assist with evaluation and management of symptoms including: fatigued , pain b. To assist medical decision maker(s) with: better understanding of current medical conditions; weighing benefits/burdens of medical treatment options; making medical treatment decisions. (Madhuri Weaver) Subjective/Interval History Pt seen today to follow up on comfort,goals. S/p SHASHI, + small aortic vegetation. 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 HIV, Hep, HSV panels negative. CSF studies negative . Q fever, bartonella serology negative. Remains on ceftriaxone, vanco per ID. Alpha-1 antitrypsin, ceruloplasmin pending . plan for bronchoscopy today per pulmonology however this was canceled possibly rescheduled for tomorrow. Chemistry unremarkable, mild LFT elevation likely shock liver. GI consulted, GI has signed off. CBC has remained stable-WBC 14 not significantly changed. Patient seen in room no visitors present. He is awake, oriented and appropriate. He appears to have reasonable understanding to conditions. He tells me bronchoscopy was postponed today due to OR suite being required for another emergent case. He indicates feeling okay overall though generally fatigued and feeling sick. Feels pain is well controlled by Ultram not particularly hurting at this time. Denies shortness of breath. Denies nausea or vomiting complains of being hungry since he is n.p.o. for the day. Tells me diarrhea has slowed off less frequent since he started eating soft foods. Review with him recent diagnostics, serologies, various lab results. 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 He indicates he completed living will and healthcare POA documents this weekend with his sisters though it appears they have copies at this time will request. He indicates he has been in communication with them all weekend, and that he is very appreciative of palliative update and speaking with them at length. He indicates as of today they are up-to-date and palliative can perhaps touch base with them later this week. He continues to express aggressive goals, he tells me that he wants to continue to do whatever the doctors and healthcare providers recommend so that he can try to get better, as he feels he is young and he wants to try to be well and live his life. . (Madhuri Weaver) Advance Directives Durable Power of Security Business Analyst: Copy in medical record (Designates Dimitrios Castelan, but document does not arsalan Mediccal or Health Care decision making.) (Madhuri Weaver) Advance Directive Specifics Date completed: 10/29/17 Health Care Surrogate(s): HCS sister Kirsty Palomo, 2nd Valerie Palomo . (Madhuri Weaver) Objective Vital Signs Date Time Temp Pulse Resp B/P (MAP) Pulse Ox O2 Delivery O2 Flow Rate FiO2 11/05/17 17:26 93 21 11/05/17 15:52 106 11/05/17 11:51 107 11/05/17 09:42 Nasal Cannula 2.00 11/05/17 08:11 99.2 103 18 132/83 (99) 93 11/05/17 08:11 98.7 107 16 136/70 (92) 98 11/05/17 07:47 106 11/05/17 04:00 104 11/05/17 04:00 Nasal Cannula 2.00 11/05/17 04:00 99.7 102 17 142/72 (95) 95 11/05/17 00:00 99.5 95 18 138/88 (105) 94 11/04/17 20:00 99.5 100 17 146/92 (110) 94 11/04/17 20:00 Nasal Cannula 2.00 11/04/17 20:00 113 Intake & Output 11/05/17 11/05/17 06:59 18:59 Intake Total 261.5 ml 361.5 ml Balance 261.5 ml 361.5 ml IV Total 261.5 ml 361.5 ml Physical Exam CONSTITUTIONAL/GENERAL: This is an adequately nourished patient, alert, pleasant TUBES/LINES/DRAINS: NC O2, PIV RUE SKIN: No jaundice, rashes, or lesions. skin warm/dry. Many tattoos to trunk, UE. CARDIOVASCULAR: Regular rate and rhythm , no murmur. No JVD. Peripheral pulses symmetric. No peripheral edema. RESPIRATORY/CHEST: Symmetric, unlabored respirations. ON NC. Clear, diminished. GASTROINTESTINAL: Abdomen soft, round, non-tender, nondistended. No palpable masses. No guarding. Bowel sounds hyperactive. MUSCULOSKELETAL: Extremities without clubbing, cyanosis. No peripheral edema peer NEUROLOGICAL: alert, oriented and appropriate. Appears to have reasonable insight to conditions and hospitalization. Tired. Weak, moves all 4 extremities with generalized weakness. PSYCHIATRIC:no evident anxiety or depression, slightly flat/tired affect . (Madhuri Weaver) Diagnostic Tests Laboratory Laboratory Tests Test 11/02/17 18:54 11/03/17 13:04 11/04/17 11:15 11/04/17 22:25 Erythrocyte Sedimentation Rate GREATER THAN 140 mm/hr Tumor Marker Alpha Fetoprotein 6.9 NG/ML (0.5-8.0) Blood Urea Nitrogen 6 MG/DL (7-18) 6 MG/DL (7-18) Creatinine 0.84 MG/DL (0.60-1.30) 0.77 MG/DL (0.60-1.30) Random Glucose 173 MG/DL (74-106) 122 MG/DL (74-106) Total Protein 6.8 GM/DL (6.4-8.2) Albumin 2.2 GM/DL (3.4-5.0) Calcium Level 8.1 MG/DL (8.5-10.1) 8.5 MG/DL (8.5-10.1) Alkaline Phosphatase 143 U/L (45-117) Aspartate Amino Transf (AST/SGOT) 89 U/L (15-37) Alanine Aminotransferase (ALT/SGPT) 70 U/L (12-78) Total Bilirubin 0.4 MG/DL (0.2-1.0) Sodium Level 141 MEQ/L (136-145) 140 MEQ/L (136-145) Potassium Level 3.3 MEQ/L (3.5-5.1) 3.5 MEQ/L (3.5-5.1) Chloride Level 106 MEQ/L (98-107) 106 MEQ/L (98-107) Carbon Dioxide Level 23.7 MEQ/L (21.0-32.0) 22.8 MEQ/L (21.0-32.0) Anion Gap 11 MEQ/L (5-15) 11 MEQ/L (5-15) Estimat Glomerular Filtration Rate 123 ML/MIN (>89) 136 ML/MIN (>89) White Blood Count 15.4 TH/MM3 (4.0-11.0) Red Blood Count 3.04 MIL/MM3 (4.50-5.90) Hemoglobin 8.2 GM/DL (13.0-17.0) Hematocrit 24.6 % (39.0-51.0) Mean Corpuscular Volume 80.8 FL (80.0-100.0) Mean Corpuscular Hemoglobin 27.0 PG (27.0-34.0) Mean Corpuscular Hemoglobin Concent 33.4 % (32.0-36.0) Red Cell Distribution Width 16.4 % (11.6-17.2) Platelet Count 755 TH/MM3 (150-450) Mean Platelet Volume 8.7 FL (7.0-11.0) Neutrophils (%) (Auto) 66.3 % (16.0-70.0) Lymphocytes (%) (Auto) 16.7 % (9.0-44.0) Monocytes (%) (Auto) 13.2 % (0.0-8.0) Eosinophils (%) (Auto) 3.4 % (0.0-4.0) Basophils (%) (Auto) 0.4 % (0.0-2.0) Neutrophils # (Auto) 10.2 TH/MM3 (1.8-7.7) Lymphocytes # (Auto) 2.6 TH/MM3 (1.0-4.8) Monocytes # (Auto) 2.0 TH/MM3 (0-0.9) Eosinophils # (Auto) 0.5 TH/MM3 (0-0.4) Basophils # (Auto) 0.1 TH/MM3 (0-0.2) CBC Comment DIFF FINAL Differential Comment Prothrombin Time 12.2 SEC (9.8-11.6) Prothromb Time International Ratio 1.2 RATIO Activated Partial Thromboplast Time 28.1 SEC (24.3-30.1) Test 11/05/17 08:18 White Blood Count 14.0 TH/MM3 (4.0-11.0) Red Blood Count 3.03 MIL/MM3 (4.50-5.90) Hemoglobin 8.2 GM/DL (13.0-17.0) Hematocrit 24.5 % (39.0-51.0) Mean Corpuscular Volume 81.0 FL (80.0-100.0) Mean Corpuscular Hemoglobin 27.2 PG (27.0-34.0) Mean Corpuscular Hemoglobin Concent 33.6 % (32.0-36.0) Red Cell Distribution Width 16.0 % (11.6-17.2) Platelet Count 786 TH/MM3 (150-450) Mean Platelet Volume 8.8 FL (7.0-11.0) Neutrophils (%) (Auto) 62.9 % (16.0-70.0) Lymphocytes (%) (Auto) 19.0 % (9.0-44.0) Monocytes (%) (Auto) 12.3 % (0.0-8.0) Eosinophils (%) (Auto) 3.7 % (0.0-4.0) Basophils (%) (Auto) 2.1 % (0.0-2.0) Neutrophils # (Auto) 8.8 TH/MM3 (1.8-7.7) Lymphocytes # (Auto) 2.7 TH/MM3 (1.0-4.8) Monocytes # (Auto) 1.7 TH/MM3 (0-0.9) Eosinophils # (Auto) 0.5 TH/MM3 (0-0.4) Basophils # (Auto) 0.3 TH/MM3 (0-0.2) CBC Comment DIFF FINAL Differential Comment Blood Urea Nitrogen 6 MG/DL (7-18) Creatinine 0.84 MG/DL (0.60-1.30) Random Glucose 110 MG/DL (74-106) Total Protein 7.0 GM/DL (6.4-8.2) Albumin 2.3 GM/DL (3.4-5.0) Calcium Level 8.3 MG/DL (8.5-10.1) Phosphorus Level 3.6 MG/DL (2.5-4.9) Magnesium Level 1.7 MG/DL (1.5-2.5) Alkaline Phosphatase 151 U/L (45-117) Aspartate Amino Transf (AST/SGOT) 99 U/L (15-37) Alanine Aminotransferase (ALT/SGPT) 77 U/L (12-78) Total Bilirubin 0.4 MG/DL (0.2-1.0) Sodium Level 140 MEQ/L (136-145) Potassium Level 3.5 MEQ/L (3.5-5.1) Chloride Level 106 MEQ/L (98-107) Carbon Dioxide Level 24.3 MEQ/L (21.0-32.0) Anion Gap 10 MEQ/L (5-15) Estimat Glomerular Filtration Rate 123 ML/MIN (>89) Free Thyroxine 1.47 NG/DL (0.76-1.46) Thyroid Stimulating Hormone 3rd Gen 3.420 uIU/ML (0.358-3.740) (Madhuri Weaver) Result Diagram: 11/05/1781711/05/17817 Microbiology Microbiology Date/Time Source Procedure Growth Status 10/31/17 13:28 Blood Peripheral Aerobic Blood Culture - Final NO GROWTH IN 5 DAYS Complete 10/31/17 13:28 Blood Peripheral Anaerobic Blood Culture - Final NO GROWTH IN 5 DAYS Complete 10/24/17 09:40 Cerebral Spinal Fluid Lumbar Puncture Acid Fast Stain - Final NO ACID FAST BACILLI SEEN Resulted 10/24/17 09:40 Cerebral Spinal Fluid Lumbar Puncture Mycobacterial Culture - Preliminary NO GROWTH IN 1 WEEK Resulted 10/22/17 18:15 Sputum Endotracheal Gram Stain - Final Complete 10/22/17 18:15 Sputum Endotracheal Sputum Culture - Final HEAVY GROWTH NORMAL RESPIRATORY SAAD Complete 10/18/17 00:00 Urine Catheterized Urine Legionella Antigen - Final PRESUMPTIVE NEGATIVE FOR LEGIONELLA P... Complete 10/18/17 00:00 Urine Catheterized Urine Streptococcus pneumoniae Antigen (M - Final PRESUMPTIVE NEGATIVE FOR STREPTOCOCCU... Complete Imaging Last Impressions Abdomen MRI 11/03/17 0000 Signed Impressions: CONCLUSION: 1. Nonspecific heterogeneous signal and enhancement pattern of the liver as de scribed above and not convincingly changed from the prior CT. This is not parti cularly masslike or with organized fluid. A transient phenomenon related to hep atomegaly and/or hepatocellular disease is thought most likely. Hepatic abscess es are considered unlikely. 2. Small spleen and it also has diffusely heterogeneous signal and enhancement . Acute or subacute superimposed on chronic splenic infarcts are considered mos t likely. No significant change from the CT. In addition, no particularly mass like area and also no evidence of organized fluid so splenic abscesses are cons idered less likely. Chest X-Ray 11/01/17 0000 Signed Impressions: CONCLUSION: Diffuse bilateral patchy airspace disease again seen Abdomen/Pelvis CT 10/27/17 0000 Signed Impressions: CONCLUSION: 1. No evidence of retroperitoneal hemorrhage. 2. Bibasilar subsegmental airspace disease and small bilateral effusions. 3. Patchy areas of hypodensity throughout the liver and spleen of uncertain et iology. Considering patient's history a septic vascular embolic process should be considered. 4. Minimal air in the urinary bladder. 5. Developing anasarca. Chest CT 10/25/17 Signed Impressions: CONCLUSION: 1. Multiple bilateral scattered interstitial and airspace infiltrates througho ut both lung yuen suggestive of some type of inflammatory process. 2. Abnormal appearance of the liver. Recommend CT scan of the abdomen with IV contrast for further evaluation. Brain MRI 10/25/17 Signed Impressions: CONCLUSION: 1. Unremarkable MRI examination of the brain. Specifically, no cerebral edema or diffusion abnormality to suggest encephalitis. Head CT 10/24/17 Signed Impressions: CONCLUSION: 1. No acute intracranial abnormality. Gall Bladder Ultrasound 10/23/17 Signed Impressions: CONCLUSION: 1. There is increased echogenicity of the liver suggestive of fatty infiltrati on and/or hepatocellular disease. 2. No evidence of gallstones or biliary tract obstruction. Renal Ultrasound 10/19/17 Signed Impressions: Service Date/Time: Thursday, October 19, 2017 09:46 - CONCLUSION: Normal examination. Alexx Baig MD Procedures Intubation 10/18. Central line placed 10/18. A line placement 10/19. (Madhuri Weaver) Assessment and Plan Disease Oriented Problem List: (1) Sepsis (2) Arrhythmia Comment: V-Tach then cardiac arrest. (3) Lactic acidosis (4) Acute kidney injury (5) Acute encephalopathy (6) Acute respiratory failure Comment: bilateral pulmonary infiltrates (7) Hyperglycemia Symptom Scale: (1) Fatigue 0-10 Scale: Unable to quantify (2) Pain 0-10 Scale: 0 Pertinent Non-Medical Issues Psychosocial:[facility]ly in [place] [facility]. He served in the [employer]. On disability Spiritual: unknown Legal: POA did not give power for health care decision making to pt's cousin. His children daughter and son has not been reachable. pt neuro status improving, now able to participate in decision making. has also surrogate designation naming his 2 sisters as surrogates. Patient father HAD been serving as proxy however he is now completed healthcare surrogate designation naming his sisters. Health care proxy is pt's Father Geovani Palomo. Ethical issues impacting care:none Important Contacts Sister- [facility] Kirsty Marksterson [phone] Sister Valerie Stacia, [facility] [phone] Geovanimaeve Palomo Sr (father) [phone] We have made several attempts to contact pt's son and daughter and they have not been reasonably reachable. His adult Children Christofer Ryan and Arin Ryan has been estranged from patient Christofer Palomo [phone] (son) Dimitrios Castelan(cousin) [phone] and [phone] POA but only financial. Heather (aunt) [phone] Adali Castelan (cousin) [phone] -Deniselindsay Gould (significant other).[phone] Prognosis 42 year old male with came in with sepsis- with respiratory failure, hyperglycemia with dka, hypokalemia. On 10/19 coded V-tach . Prognosis is guarded and still remains critical, but pt clinical condition has improved. Code Status: Full Code Plan * Code= full code * decision making: pt neuro status improving, now able to participate in decision making. completed surrogate designation naming his 2 sisters as surrogates. * Symptoms- -- Pain- s/p cpr, intubation/extubation. Has indicated has hx chronic back pain, pain to legs "sharp pain " to feet. +today c/o abdominal pain/nausea ongoing during hospital course. he has prn tramadol; indicates this has been effective for him in the past. has 50mg Q 8 hr prn, has been using 2-3 doses per day. Will cont to evaluate effectiveness/requirements -- fatigue- generalized weakness/deconditioning, ongoing infectious process; will need ongoing nutritional support, as well as PT, OT to maintain strength [fair to good p.o. intake generally eating 75-100% of at least 2 meals a day] * Goals of Treatment : Aggressive. Pt to have ongoing discussions with family regarding reintubation/ possible limitations on etc. open to ongoing conversations as clinical course evolves. Patient sisters and healthcare surrogate have been updated on his conditions and pending diagnostics etc. They are supportive of patient's wishes. * Palliative care will continue to follow during hospital course as condition evolves, to assist patient/decision-maker with understanding of medical conditions, weighing benefits/burdens of treatment options, for clarification of goals of treatment. Additionally will assist with any symptoms of palliative concern (Madhuri Weaver) Time Spent Total Floor Time (mins): 20 (Chart review, PE, discussion with patient) (Madhuri Weaver) Attestation To help prompt me to consider important information that might be impacting today's encounter and assessment, information from prior notes written by myself or my colleagues may have been "brought forward" into today's note. My signature on this note, however, is an attestation that I personally performed the exam, history, and/or decision-making noted today, and, unless otherwise indicated, the interactions with patient, family, and staff as well as the review of records all occurred today. I also attest that the listed assessment and stated plan reflect my best clinical judgment today based on the combination of historical information, prior notes, and today's exam/ interactions. When time spent is documented, it refers only to time spent today by the signer, or if indicated, combined time spent today by collaborating physician/nurse practitioner. (Madhuri Weaver) Collaborating MD Comments Chart reviewed. Case discussed with palliative care DIRECTOR APPAREL. Above DIRECTOR APPAREL note reviewed and I concur. . (Lee Infante MD) Madhuri Weaver Nov 05, 2017 18:31 Lee Infante MD Nov 17, 2017 16:04
[2017-11-05] MEDS: CHLORHEXIDINE GLUCONATE 2 % 1 PACK (2 CLOTHS) TOP SCH (23:46)
[2017-11-06] VITALS (13 sets, daily range): BP systolic 136–167; BP diastolic 74–101; PULSE 96–111; RESP 16–18; TEMP 97.8–100.4; O2SAT 93–97
[2017-11-06] MEDS: ALPRAZolam 0.25 MG TAB PO PRN ×2 (03:46→22:47)
[2017-11-06] MEDS: hydrALAZINE HCL 50 MG TAB PO SCH ×3 (05:25→22:47)
[2017-11-06] MEDS: ARTIFICIAL TEARS OPTH SOLN 15 ML BTL EACH EYE SCH ×3 (05:27→22:00)
[2017-11-06 07:05] LABS: BASOPHIL # 0.4 TH/MM3 (0-0.2); BASOPHIL % 2.4 % (0.0-2.0); EOSINOPHIL # 0.6 TH/MM3 (0-0.4); EOSINOPHIL % 4.1 % (0.0-4.0); HEMATOCRIT 24.4 % (39.0-51.0); LYMPH % 15.2 % (9.0-44.0); LYMPHOCYTE # 2.3 TH/MM3 (1.0-4.8); MEAN CELL VOLUME 81.1 FL (80.0-100.0); MEAN CORPUSCULAR HEMOGLOBIN 26.7 PG (27.0-34.0); MEAN CORPUSCULAR HGB CONC 32.9 % (32.0-36.0); MEAN PLATELET VOLUME 8.6 FL (7.0-11.0); NEUT % 65.3 % (16.0-70.0); PLATELET COUNT 831 TH/MM3 (150-450); RED BLOOD COUNT 3.01 MIL/MM3 (4.50-5.90); RED CELL DISTRIBUTION WIDTH 16.3 % (11.6-17.2); WHITE BLOOD COUNT 15.3 TH/MM3 (4.0-11.0)
[2017-11-06] MEDS ORDERED: PHARMACY ORDERED LAB ONE (07:45)
[2017-11-06 07:49] LABS: ALBUMIN 2.4 GM/DL (3.4-5.0); BICARBONATE 21.4 MEQ/L (21.0-32.0); BLOOD UREA NITROGEN 7 MG/DL (7-18); CALCIUM 8.8 MG/DL (8.5-10.1); CHLORIDE 105 MEQ/L (98-107); CREATININE 0.88 MG/DL (0.60-1.30); GLOMERULAR FILTRATION RATE 116 ML/MIN (>89); GLUCOSE,RANDOM 111 MG/DL (74-106); MAGNESIUM 1.8 MG/DL (1.5-2.5); SODIUM (NA) 139 MEQ/L (136-145)
[2017-11-06 07:50] LABS: ALT (GPT) 71 U/L (12-78); AST (GOT) 68 U/L (15-37); PHOSPHORUS 3.4 MG/DL (2.5-4.9)
[2017-11-06 07:52] LABS: ALKALINE PHOSPHATASE 142 U/L (45-117); TOTAL BILIRUBIN ADULT 0.4 MG/DL (0.2-1.0); TOTAL PROTEIN 7.2 GM/DL (6.4-8.2)
[2017-11-06] MEDS: CHLORHEXIDINE 0.12% (ORAL KIT) 15 ML CUP MT SCH ×2 (08:00→20:00)
[2017-11-06] MEDS: INSULIN ASPART SUPPLEMENTAL SCALE SQ SCH ×4 (08:00→21:00)
[2017-11-06] MEDS: ENOXAPARIN SODIUM 40 MG/0.4 ML SYRINGE SQ SCH (10:00)
[2017-11-06] MEDS: CARVEDILOL 6.25 MG TAB PO SCH ×2 (10:00→22:47)
[2017-11-06] MEDS: PANTOPRAZOLE SOD 40 MG DELAYED RELEASE TAB PO SCH ×2 (10:00→22:47)
[2017-11-06] MEDS: CHOLESTYRAMINE 4 GM PACKET PO SCH (10:01)
[2017-11-06] MEDS: VANCOMYCIN INJ 1,150 MG in SODIUM CHLOR 0.9% 250 ML INJ 250 ML IV SCH (10:01)
[2017-11-06] MEDS: SODIUM CHLORIDE 0.9% FLUSH 10 ML FLUSH IV FLUSH SCH ×2 (10:01→22:48)
[2017-11-06] MEDS: NYSTATIN 100,000 U/GM PWD 15 GM BTL TOPICAL SCH ×2 (10:02→21:00)
[2017-11-06] MEDS: INSULIN DETEMIR 100 UNITS/ML VIAL SQ SCH ×2 (10:02→22:48)
--- NOTE | 2017-11-06 11:39 | PD.ONC.PN ---
Subjective Subjective Remarks Afebrile overnight. Patient resting in bed in nad. no obvious bleeding. Objective Data Date Time Temp Pulse Resp B/P (MAP) Pulse Ox O2 Delivery O2 Flow Rate FiO2 11/06/17 08:05 98.6 101 18 151/101 (118) 97 11/06/17 08:00 Nasal Cannula 2.00 11/06/17 06:10 Nasal Cannula 2.00 11/06/17 04:00 104 11/06/17 00:00 97.8 97 16 167/88 (114) 93 11/06/17 00:00 Nasal Cannula 2.00 11/06/17 00:00 98 11/05/17 20:00 103 11/05/17 17:26 93 21 11/05/17 16:11 97.8 105 18 151/90 (110) 95 11/05/17 15:52 106 11/05/17 11:51 107 11/06/17 11/06/17 11/06/17 07:00 15:00 23:00 Output Total 2400 ml Balance -2400 ml Result Diagram: 11/06/17 0530 11/06/17 0330 Laboratory Results Laboratory Tests Test 11/06/17 03:30 11/06/17 05:30 11/06/17 08:33 Blood Urea Nitrogen 7 MG/DL Creatinine 0.88 MG/DL Random Glucose 111 MG/DL Total Protein 7.2 GM/DL Albumin 2.4 GM/DL Calcium Level 8.8 MG/DL Phosphorus Level 3.4 MG/DL Magnesium Level 1.8 MG/DL Alkaline Phosphatase 142 U/L Aspartate Amino Transf (AST/SGOT) 68 U/L Alanine Aminotransferase (ALT/SGPT) 71 U/L Total Bilirubin 0.4 MG/DL Sodium Level 139 MEQ/L Potassium Level 3.6 MEQ/L Chloride Level 105 MEQ/L Carbon Dioxide Level 21.4 MEQ/L Anion Gap 13 MEQ/L Estimat Glomerular Filtration Rate 116 ML/MIN White Blood Count 15.3 TH/MM3 Red Blood Count 3.01 MIL/MM3 Hemoglobin 8.0 GM/DL Hematocrit 24.4 % Mean Corpuscular Volume 81.1 FL Mean Corpuscular Hemoglobin 26.7 PG Mean Corpuscular Hemoglobin Concent 32.9 % Red Cell Distribution Width 16.3 % Platelet Count 831 TH/MM3 Mean Platelet Volume 8.6 FL Neutrophils (%) (Auto) 65.3 % Lymphocytes (%) (Auto) 15.2 % Monocytes (%) (Auto) 13.0 % Eosinophils (%) (Auto) 4.1 % Basophils (%) (Auto) 2.4 % Neutrophils # (Auto) 10.0 TH/MM3 Lymphocytes # (Auto) 2.3 TH/MM3 Monocytes # (Auto) 2.0 TH/MM3 Eosinophils # (Auto) 0.6 TH/MM3 Basophils # (Auto) 0.4 TH/MM3 CBC Comment AUTO DIFF Differential Comment AUTO DIFF CONFIRMED Platelet Estimate HIGH Platelet Morphology Comment NORMAL Vancomycin Level Trough 18.1 MCG/ML Culture Results Microbiology Date/Time Source Procedure Growth Status 11/05/17 18:20 Stool Stool Stool Occult Blood (TAHMINA) - Final HEMOCCULT NEGATIVE Complete Administered Medications Medications (Trade) Dose Ordered Sig/Jacky Route PRN Reason Start Time Stop Time Status Last Admin Dose Admin Sodium Chloride (NS Flush) 2 ml BID IV FLUSH 10/19/17 09:00 11/06/17 10:01 Albuterol Sulfate (Albuterol Neb) 2.5 mg Q2HR NEB PRN INH SOB/WHEEZING 10/19/17 02:30 10/24/17 08:36 Miscellaneous Information ([facility] Nursing Information) 1 [id number] XX 10/19/17 02:30 10/19/17 02:30 Chlorhexidine Gluconate (Chlorhexidine 2% Cloth) Taper DAILY@04 TOP 10/19/17 04:00 10/15/18 03:59 10/27/17 04:00 Ondansetron HCl (Zofran Odt) 4 mg Q6H PRN PO NAUSEA OR VOMITING 10/19/17 02:30 10/29/17 23:44 Artificial Tears (Tears Naturale Opth Soln) 1 drop Q8HR EACH EYE 10/19/17 06:00 11/05/17 20:17 Chlorhexidine Gluconate (Peridex 0.12% Liq) 15 ml BID@08,20 MT 10/19/17 08:00 11/04/17 08:47 Acetaminophen 100 ml @ 400 mls/hr Q8H PRN IV fever 10/19/17 03:30 11/02/17 10:54 Insulin Detemir (Levemir Inj) 5 units Q12HR SQ 10/25/17 10:00 11/06/17 10:02 Amlodipine Besylate (Norvasc) 10 mg DAILY PO 10/26/17 09:00 11/06/17 10:00 Enoxaparin Sodium (Lovenox Inj) 40 mg Q24H SQ 10/26/17 08:00 11/06/17 10:00 Pantoprazole Sodium (Protonix) 40 mg Q12HR PO 10/27/17 21:00 11/06/17 10:00 Hydralazine HCl (Apresoline) 50 mg Q8HR PO 10/27/17 22:00 11/06/17 05:25 Insulin Aspart (NovoLOG SUPPLEMENTAL SCALE) 1 ACHS SLIDING SCALE SQ 10/27/17 17:00 11/05/17 20:16 Nystatin (Mycostatin Powder) 1 applic Q12HR TOPICAL 10/27/17 21:00 11/06/17 10:02 Tramadol HCl (Ultram) 50 mg Q8H PRN PO PAIN 5-10 10/29/17 13:15 11/05/17 17:33 Ceftriaxone Sodium 2000 mg/ Sodium Chloride 100 ml @ 200 mls/hr Q24H IV 10/31/17 13:00 11/05/17 12:48 Carvedilol (Coreg) 6.25 mg Q12HR PO 11/02/17 21:00 11/06/17 10:00 Alprazolam (Xanax) 0.25 mg Q6HR PRN PO anxiety 11/03/17 12:30 11/06/17 03:46 Acetaminophen (Tylenol) 325 mg Q4H PRN PO Fever > 100.4 11/03/17 18:45 11/03/17 18:58 Cholestyramine Resin (Questran 4 Gm Pkt) 4 gm DAILY PO 11/05/17 09:00 11/06/17 10:01 Objective Remarks GENERAL: Middle aged male, supine in bed resting in nad. On 2L via NC SKIN: Warm and dry. HEAD: Normocephalic. EYES: No injection or drainage. NECK: Supple, trachea midline. CARDIOVASCULAR: Regular rate and rhythm RESPIRATORY: Breath sounds equal bilaterally. No accessory muscle use. GASTROINTESTINAL: Abdomen soft, non-tender, nondistended. EXTREMITIES: No cyanosis NEUROLOGICAL: awake, alert, normal speech. moving all extremities. Assessment/Plan Problem List: (1) Microcytic anemia ICD Codes: D50.9 - Iron deficiency anemia, unspecified Plan: --Likely multifactorial due to sepsis +inflammation --Iron studies were done after patient received blood transfusions--> difficult to interpret. --No sign of hemolysis --hemoglobin electrophoresis pending --SPEP shows no monoclonal protein. (2) Sepsis ICD Codes: A41.9 - Sepsis, unspecified organism Plan: --SHASHI shows mitral valve regurgitation, aortic valve regurgitation and vegetation --ID following --Blood cultures have been negative so far Assessment 42 y/o male admitted with DKA and sepsis; hematology consulted for anemia Plan 1. monitor CBC 2. no transfusion today 3. continue supportive care Attending Statement The exam, history, and the medical decision-making described in the above note were completed with the assistance of the mid-level provider. I reviewed and agree with the findings presented. I attest that I had a [id number] encounter with the patient on the same day, and personally performed and documented my assessment and findings in the medical record. Patient still has generalized weakness. No report of bleeding noted. His hemoglobin stable at 8. Protein electrophoresis did not show any monoclonal protein. Hemoglobin electrophoresis is still pending. Continue monitor CBC and recommend transfusion if hemoglobin trends below 7. Maria Del Rosario Brown Nov 06, 2017 11:39 Presley Lux MD Nov 06, 2017 17:16
--- NOTE | 2017-11-06 13:59 | HHI.IDPN ---
Subjective Subjective Remarks Patient is a 42-year-old male, brought into the hospital for evaluation of multiple symptoms. He apparently has been having problem with poor p.o. intake , and thirst and increasing fluid intake. There is also mention that he has had problem with nausea and vomiting and some confusion. The symptoms have been going on for about a month. Was brought into the emergency room, and he was found to have a blood sugar of 1800, creatinine was up to 3, sodium 21, and he has multiple abnormal electrolytes. He also had acidosis, and high fevers. His white count was elevated. In the ED he became more unresponsive, and he ended up getting intubated. He was initially on pressors. He was also found to have a very elevated CPK. His electrolytes stabilized, and his acidosis improved. Creatinine improved, and he has improvement in his urine output. He had 2 blood cultures done and those are negative. He was started on empiric antibiotics for possible aspiration. Initial urinalysis was unremarkable. Patient remains on the vent. His mental status still has not improved. Neurology has been consulted. Patient's temperatures seem to have improved. His chest x-ray showing bilateral pulmonary infiltrates and some nodular infiltrates. He has been getting vancomycin, cefepime, and Flagyl. His CPKs are still elevated, and his LFTs were also elevated. Patient also during his hospitalization had episode of V. tach and was resuscitated successfully. Infectious disease consultation has been requested to evaluate patient with high fevers. Notes reviewed Temps better BC have been negative Bronch has been rescheduled for tomorrow No new complaints Qfever negative Bartonella negative Last CXR with worsening infiltrates SHASHI has vegetation small in AV WBC lower at 14K HIV negative Hepatitis negative Antibiotics Rocephin Vancomycin Current Medications Medications (Trade) Dose Ordered Sig/Jacky Route Start Time Stop Time Status Last Admin (NS Flush) 2 ml UNSCH PRN IV FLUSH 10/19/17 02:30 (NS Flush) 2 ml BID IV FLUSH 10/19/17 09:00 11/06/17 10:01 (Albuterol Neb) 2.5 mg Q2HR NEB PRN INH 10/19/17 02:30 10/24/17 08:36 ([facility] Nursing Information) 1 Q361D XX 10/19/17 02:30 10/19/17 02:30 (Chlorhexidine 2% Cloth) Taper DAILY@04 TOP 10/19/17 04:00 10/15/18 03:59 10/27/17 04:00 (Chlorhexidine 2% Cloth) 3 pack UNSCH PRN TOP 10/19/17 02:30 (Milk Of Magnesia Liq) 30 ml Q12H PRN PO 10/19/17 02:30 Future Hold (Senokot) 17.2 mg Q12H PRN PO 10/19/17 02:30 Future Hold (Dulcolax Supp) 10 mg DAILY PRN RECTAL 10/19/17 02:30 (Zofran Odt) 4 mg Q6H PRN PO 10/19/17 02:30 10/29/17 23:44 (Tears Naturale Opth Soln) 1 drop Q8HR EACH EYE 10/19/17 06:00 11/05/17 20:17 (Peridex 0.12% Liq) 15 ml BID@08,20 MT 10/19/17 08:00 11/04/17 08:47 Acetaminophen 100 ml @ 400 mls/hr Q8H PRN IV 10/19/17 03:30 11/02/17 10:54 (Brethine Inj) 1 mg UNSCH PRN SQ 10/19/17 07:45 (Lactulose Liq) 30 ml DAILY PRN PO 10/23/17 21:30 Future Hold (D50w (Vial) Inj) 50 ml UNSCH PRN IV PUSH 10/24/17 21:00 (Glucagon Inj) 1 mg UNSCH PRN OTHER 10/24/17 21:00 (Levemir Inj) 5 units Q12HR SQ 10/25/17 10:00 11/06/17 10:02 (Norvasc) 10 mg DAILY PO 10/26/17 09:00 11/06/17 10:00 (Lovenox Inj) 40 mg Q24H SQ 10/26/17 08:00 11/06/17 10:00 (Protonix) 40 mg Q12HR PO 10/27/17 21:00 11/06/17 10:00 (Apresoline) 50 mg Q8HR PO 10/27/17 22:00 11/06/17 05:25 (NovoLOG SUPPLEMENTAL SCALE) 1 ACHS SLIDING SCALE SQ 10/27/17 17:00 11/05/17 20:16 (Mycostatin Powder) 1 applic Q12HR TOPICAL 10/27/17 21:00 11/06/17 10:02 (Ultram) 50 mg Q8H PRN PO 10/29/17 13:15 11/05/17 17:33 Pharmacy Profile Note 0 ml @ 0 mls/hr UNSCH OTHER 10/31/17 12:00 Ceftriaxone Sodium 2000 mg/ Sodium Chloride 100 ml @ 200 mls/hr Q24H IV 10/31/17 13:00 11/05/17 12:48 (Coreg) 6.25 mg Q12HR PO 11/02/17 21:00 11/06/17 10:00 (Xanax) 0.25 mg Q6HR PRN PO 11/03/17 12:30 11/06/17 03:46 (Tylenol) 325 mg Q4H PRN PO 11/03/17 18:45 11/03/17 18:58 (Questran 4 Gm Pkt) 4 gm DAILY PO 11/05/17 09:00 11/06/17 10:01 (Librium) 50 mg TID PRN PO 11/05/17 13:15 Vancomycin HCl 1500 mg/Sodium Chloride 515 ml @ 257.5 mls/ hr Q12H IV 11/06/17 22:00 ([facility] [place] Ordered Lab Info) SPECIFIC LAB TO BE DRAWN:VANCO TROUGH DATE... ONCE ONCE .XX 11/08/17 09:45 11/08/17 09:46 Lines PIV no evidence of infection Past Medical History Depression/anxiety Hypertension NSAID use Allergies: Coded Allergies: No Known Allergies (Unverified Allergy, Unknown, 10/18/17) Objective . Vital Signs Date Time Temp Pulse Resp B/P (MAP) Pulse Ox O2 Delivery O2 Flow Rate FiO2 11/06/17 08:05 98.6 101 18 151/101 (118) 97 11/06/17 08:00 Nasal Cannula 2.00 11/06/17 06:10 Nasal Cannula 2.00 11/06/17 04:00 104 11/06/17 00:00 97.8 97 16 167/88 (114) 93 11/06/17 00:00 Nasal Cannula 2.00 11/06/17 00:00 98 11/05/17 20:00 103 11/05/17 17:26 93 21 11/05/17 16:11 97.8 105 18 151/90 (110) 95 11/05/17 15:52 106 . Laboratory Tests Test 11/04/17 22:25 11/05/17 08:18 11/06/17 05:30 White Blood Count 15.4 TH/MM3 14.0 TH/MM3 15.3 TH/MM3 Red Blood Count 3.04 MIL/MM3 3.03 MIL/MM3 3.01 MIL/MM3 Hemoglobin 8.2 GM/DL 8.2 GM/DL 8.0 GM/DL Hematocrit 24.6 % 24.5 % 24.4 % Mean Corpuscular Volume 80.8 FL 81.0 FL 81.1 FL Mean Corpuscular Hemoglobin 27.0 PG 27.2 PG 26.7 PG Mean Corpuscular Hemoglobin Concent 33.4 % 33.6 % 32.9 % Red Cell Distribution Width 16.4 % 16.0 % 16.3 % Platelet Count 755 TH/MM3 786 TH/MM3 831 TH/MM3 Mean Platelet Volume 8.7 FL 8.8 FL 8.6 FL Neutrophils (%) (Auto) 66.3 % 62.9 % 65.3 % Lymphocytes (%) (Auto) 16.7 % 19.0 % 15.2 % Monocytes (%) (Auto) 13.2 % 12.3 % 13.0 % Eosinophils (%) (Auto) 3.4 % 3.7 % 4.1 % Basophils (%) (Auto) 0.4 % 2.1 % 2.4 % Neutrophils # (Auto) 10.2 TH/MM3 8.8 TH/MM3 10.0 TH/MM3 Lymphocytes # (Auto) 2.6 TH/MM3 2.7 TH/MM3 2.3 TH/MM3 Monocytes # (Auto) 2.0 TH/MM3 1.7 TH/MM3 2.0 TH/MM3 Eosinophils # (Auto) 0.5 TH/MM3 0.5 TH/MM3 0.6 TH/MM3 Basophils # (Auto) 0.1 TH/MM3 0.3 TH/MM3 0.4 TH/MM3 CBC Comment DIFF FINAL DIFF FINAL AUTO DIFF Differential Comment AUTO DIFF CONFIRMED Platelet Estimate HIGH Platelet Morphology Comment NORMAL Laboratory Tests Test 11/04/17 22:25 11/05/17 08:18 11/06/17 03:30 Blood Urea Nitrogen 6 MG/DL 6 MG/DL 7 MG/DL Creatinine 0.77 MG/DL 0.84 MG/DL 0.88 MG/DL Random Glucose 122 MG/DL 110 MG/DL 111 MG/DL Calcium Level 8.5 MG/DL 8.3 MG/DL 8.8 MG/DL Sodium Level 140 MEQ/L 140 MEQ/L 139 MEQ/L Potassium Level 3.5 MEQ/L 3.5 MEQ/L 3.6 MEQ/L Chloride Level 106 MEQ/L 106 MEQ/L 105 MEQ/L Carbon Dioxide Level 22.8 MEQ/L 24.3 MEQ/L 21.4 MEQ/L Anion Gap 11 MEQ/L 10 MEQ/L 13 MEQ/L Estimat Glomerular Filtration Rate 136 ML/MIN 123 ML/MIN 116 ML/MIN Total Protein 7.0 GM/DL 7.2 GM/DL Albumin 2.3 GM/DL 2.4 GM/DL Phosphorus Level 3.6 MG/DL 3.4 MG/DL Magnesium Level 1.7 MG/DL 1.8 MG/DL Alkaline Phosphatase 151 U/L 142 U/L Aspartate Amino Transf (AST/SGOT) 99 U/L 68 U/L Alanine Aminotransferase (ALT/SGPT) 77 U/L 71 U/L Total Bilirubin 0.4 MG/DL 0.4 MG/DL Hemoglobin A1c 9.0 % Free Thyroxine 1.47 NG/DL Thyroid Stimulating Hormone 3rd Gen 3.420 uIU/ML Microbiology Date/Time Source Procedure Growth Status 11/05/17 18:20 Stool Stool Stool Occult Blood ([facility]) - Final HEMOCCULT NEGATIVE Complete Imaging Last 72 hours Impressions Abdomen/Pelvis CT 10/27/17 0000 Signed Impressions: CONCLUSION: 1. No evidence of retroperitoneal hemorrhage. 2. Bibasilar subsegmental airspace disease and small bilateral effusions. 3. Patchy areas of hypodensity throughout the liver and spleen of uncertain et iology. Considering patient's history a septic vascular embolic process should be considered. 4. Minimal air in the urinary bladder. 5. Developing anasarca. Chest X-Ray 10/26/17 0600 Signed Impressions: CONCLUSION: Diffuse consolidation likely related to diffuse underlying processes such as ed aaron or diffuse inflammatory change. Last 72 hours Impressions Chest X-Ray 10/24/17 0600 Signed Impressions: CONCLUSION: No significant change. Bilateral pulmonary opacities remain. Head CT 10/24/17 0000 Signed Impressions: CONCLUSION: 1. No acute intracranial abnormality. Gall Bladder Ultrasound 10/23/17 Signed Impressions: CONCLUSION: 1. There is increased echogenicity of the liver suggestive of fatty infiltrati on and/or hepatocellular disease. 2. No evidence of gallstones or biliary tract obstruction. Chest X-Ray 10/23/17 Signed Impressions: CONCLUSION: Scattered bilateral pulmonary infiltrates. Last Impressions Gall Bladder Ultrasound 10/23/17 Signed Impressions: CONCLUSION: Chest X-Ray 10/23/17 Signed Impressions: CONCLUSION: Scattered bilateral pulmonary infiltrates. Renal Ultrasound 10/19/17 Signed Impressions: Service Date/Time: Thursday, October 19, 2017 09:46 - CONCLUSION: Normal examination. Alexx Baig MD Physical Exam GENERAL: Awake and alert, NAD. SKIN: Cool and dry. No generalized rash. HEAD: Atraumatic. Normocephalic. No temporal wasting, or tenderness. EYES: [place] conjunctiva. No petechia or hemorrhage. Has dirty sclera. EARS, NOSE AND THROAT: Nose without bleeding or purulent nasal discharge. Moist mucosa NECK: Trachea midline. Supple and not tender, no meningeal signs CARDIOVASCULAR: Regular rate and rhythm. No murmurs, rubs or gallops heard RESPIRATORY: Decreased BS at bases ABDOMEN: Distended, mild tenderness, not guarding, bowel sounds present and hypoactive. EXTREMITIES: Warm, has pitting edema. Has embolic lesions tip of 3 fingers on his R hand NEUROLOGICAL: Grossly non-focal PSYCHIATRIC: Calm and cooperative LINE: No evidence of infection Assessment & Plan Remarks IMPRESSION Possible sepsis on initial presentation with fevers, dec LOC, MOSF - better - source possible lung, has aishwarya nodular infiltrates, BC negative, no sputum C/S Has multiple embolic lesions, source? - his BC have been negative - initial echo ok Endocarditis - C/S have been negative on admission - ?Culture negative endocarditis Aishwarya pulmonary infiltrates, etiology? - ?inflammatory DM, DKA Elevated CPK Elevated LFTs Renal failure Acidosis, resolved Encephalopathy, ?metabolic, or [employer]FORMATION SYSTEM[employer]CHIT[employer] etiology, resolved Leukocytosis, persistent, but decreasing Anemia Diarrhea, C Diff negative RECOMMENDATION Continue Rocephin Continue Vancomycin Pulmonary evaluation of bilateral infiltrates Follow CBC Follow C/S Follow temps Monitor progress Haley Sanchez MD Nov 06, 2017 13:59
[2017-11-06] MEDS: cefTRIAXone INJ 2,000 MG in SODIUM CHLORIDE 0.9% INJ 100 ML IV SCH (14:38)
--- NOTE | 2017-11-06 14:40 | HHI.PR ---
Subjective Remarks Follow-up endocarditis/questionable bilateral pulmonary infiltrate November 06, 2017-patient seen and examined, patient is alert and oriented 3, currently afebrile, and denies any chest pain or shortness of breath Objective Vitals Vital Signs Date Time Temp Pulse Resp B/P (MAP) Pulse Ox O2 Delivery O2 Flow Rate FiO2 11/06/17 08:05 98.6 101 18 151/101 (118) 97 11/06/17 08:00 Nasal Cannula 2.00 11/06/17 06:10 Nasal Cannula 2.00 11/06/17 04:00 104 11/06/17 00:00 97.8 97 16 167/88 (114) 93 11/06/17 00:00 Nasal Cannula 2.00 11/06/17 00:00 98 11/05/17 20:00 103 11/05/17 17:26 93 21 11/05/17 16:11 97.8 105 18 151/90 (110) 95 11/05/17 15:52 106 I/O 11/05/17 11/05/17 11/05/17 11/06/17 11/06/17 11/06/17 07:00 15:00 23:00 07:00 15:00 23:00 Intake Total 261.5 ml 361.5 ml 261.5 ml Output Total 2400 ml 2400 ml Balance 261.5 ml 361.5 ml -2138.5 ml -2400 ml Intake Oral 0 ml IV Total 261.5 ml 361.5 ml 261.5 ml Output Urine Total 2400 ml 2400 ml # Bowel Movements 1 Result Diagram: 11/06/17 0530 11/06/17 0330 Imaging Last Impressions Abdomen MRI 11/03/17 0000 Signed Impressions: CONCLUSION: 1. Nonspecific heterogeneous signal and enhancement pattern of the liver as de scribed above and not convincingly changed from the prior CT. This is not parti cularly masslike or with organized fluid. A transient phenomenon related to hep atomegaly and/or hepatocellular disease is thought most likely. Hepatic abscess es are considered unlikely. 2. Small spleen and it also has diffusely heterogeneous signal and enhancement . Acute or subacute superimposed on chronic splenic infarcts are considered mos t likely. No significant change from the CT. In addition, no particularly mass like area and also no evidence of organized fluid so splenic abscesses are cons idered less likely. Chest X-Ray 11/01/17 Signed Impressions: CONCLUSION: Diffuse bilateral patchy airspace disease again seen Abdomen/Pelvis CT 10/27/17 Signed Impressions: CONCLUSION: 1. No evidence of retroperitoneal hemorrhage. 2. Bibasilar subsegmental airspace disease and small bilateral effusions. 3. Patchy areas of hypodensity throughout the liver and spleen of uncertain et iology. Considering patient's history a septic vascular embolic process should be considered. 4. Minimal air in the urinary bladder. 5. Developing anasarca. Chest CT 10/25/17 Signed Impressions: CONCLUSION: 1. Multiple bilateral scattered interstitial and airspace infiltrates througho ut both lung yuen suggestive of some type of inflammatory process. 2. Abnormal appearance of the liver. Recommend CT scan of the abdomen with IV contrast for further evaluation. Brain MRI 10/25/17 Signed Impressions: CONCLUSION: 1. Unremarkable MRI examination of the brain. Specifically, no cerebral edema or diffusion abnormality to suggest encephalitis. Head CT 10/24/17 Signed Impressions: CONCLUSION: 1. No acute intracranial abnormality. Gall Bladder Ultrasound 10/23/17 Signed Impressions: CONCLUSION: 1. There is increased echogenicity of the liver suggestive of fatty infiltrati on and/or hepatocellular disease. 2. No evidence of gallstones or biliary tract obstruction. Renal Ultrasound 10/19/17 Signed Impressions: Service Date/Time: Thursday, October 19, 2017 09:46 - CONCLUSION: Normal examination. Alexx Baig MD Objective Remarks GENERAL: NAD SKIN: Warm and dry. HEAD: Normocephalic. EYES: No scleral icterus. No injection or drainage. NECK: Supple, trachea midline. No JVD or lymphadenopathy. CARDIOVASCULAR: Regular rate and rhythm without murmurs, gallops, or rubs. RESPIRATORY: Breath sounds equal bilaterally. No accessory muscle use. GASTROINTESTINAL: Abdomen soft, non-tender, nondistended. MUSCULOSKELETAL: No cyanosis, or edema. BACK: Nontender without obvious deformity. No CVA tenderness. Date of Insertion: October 19, 2017 A/P Problem List: (1) Acute respiratory failure ICD Code: J96.00 - Acute respiratory failure, unspecified whether with hypoxia or hypercapnia (2) Acute encephalopathy ICD Code: G93.40 - Encephalopathy, unspecified Status: Acute (3) Normocytic anemia ICD Code: D64.9 - Anemia, unspecified (4) Lactic acidosis ICD Code: E87.2 - Acidosis Status: Acute (5) Hypoalbuminemia ICD Code: E88.09 - Other disorders of plasma-protein metabolism, not elsewhere classified (6) Hypophosphatemia ICD Code: E83.39 - Other disorders of phosphorus metabolism Status: Acute (7) Hypokalemia ICD Code: E87.6 - Hypokalemia Status: Acute (8) Hypermagnesemia ICD Code: E83.41 - Hypermagnesemia (9) Acute kidney injury ICD Code: N17.9 - Acute kidney failure, unspecified Status: Acute (10) Leukocytosis ICD Code: D72.829 - Elevated white blood cell count, unspecified Status: Acute (11) Hyponatremia ICD Code: E87.1 - Hypo-osmolality and hyponatremia Status: Acute (12) Hypertension ICD Code: I10 - Essential (primary) hypertension (13) Pyrexia ICD Code: R50.9 - Fever, unspecified Status: Acute (14) Depression ICD Code: F32.9 - Major depressive disorder, single episode, unspecified (15) Ketoacidosis due to secondary diabetes ICD Code: E13.10 - Other specified diabetes mellitus with ketoacidosis without coma Status: Acute (16) BMI 37.0-37.9, adult ICD Code: Z68.37 - Body mass index (BMI) 37.0-37.9, adult Status: Acute Assessment and Plan 42-year-old man with: Endocarditis, sepsis, fevers Patient has multiple embolic lesions, SHASHI shows aortic valve vegetation 0.7 x 0.8 cm Patient continues to show low-grade fevers Awaiting slow-growing cultures from microbiology Infectious disease recommends staying with Rocephin and vancomycin for now If fevers persist consider HACEK work up and addition of doxycycline for expanded coverage if ID agrees (for culture negative endocarditis) Appreciate infectious disease consult Appreciate cardiology workup Hypertension Continue Norvasc, Coreg,and hydralazine. Anxiety Xanax added Acute hypoxic and hypercarbic respiratory failure Bilateral pulmonary infiltrate Extubated 10/24/2017, doing well on nasal cannula oxygen Pulmonology consulted for abnormalities on imaging Upper GI bleed By patient history he vomited blood with some clots 2 weeks prior to admission Gastroenterology consulted Continue pantoprazole Acute hyperglycemic state Continue sliding-scale insulin with Accu-Cheks Continue Levemir 5 U q12h, hemoglobin A1c 13. Diabetic diet Tinea cruris Continue nystatin DVT prophylaxis Lovenox Problem Qualifiers (1) Acute respiratory failure: Qualified Codes: J96.01 - Acute respiratory failure with hypoxia; J96.02 - Acute respiratory failure with hypercapnia (2) Pyrexia: Qualified Codes: R50.9 - Fever, unspecified (3) Depression: Qualified Codes: F32.9 - Major depressive disorder, single episode, unspecified Nagi Goldstein MD Nov 06, 2017 14:40
[2017-11-06 15:07] LABS: ALPHA-1-ANTITRYPSIN 274 mg/dL (100 - 190)
--- NOTE | 2017-11-06 19:00 | HHI.PR ---
Subjective Remarks 42 YOAA male with Bipolar disorder, Lung infilt, fever No Sputum Denies sob no CP Low grade fever Objective Vital Signs Vital Signs Date Time Temp Pulse Resp B/P (MAP) Pulse Ox O2 Delivery O2 Flow Rate FiO2 11/06/17 18:05 99.1 97 18 143/90 (107) 96 11/06/17 17:34 95 Nasal Cannula 2.00 11/06/17 16:00 Nasal Cannula 2.00 11/06/17 12:05 99.5 102 18 136/91 (106) 95 11/06/17 12:00 Nasal Cannula 2.00 11/06/17 08:05 98.6 101 18 151/101 (118) 97 11/06/17 08:00 Nasal Cannula 2.00 11/06/17 06:10 Nasal Cannula 2.00 11/06/17 04:00 104 11/06/17 00:00 97.8 97 16 167/88 (114) 93 11/06/17 00:00 Nasal Cannula 2.00 11/06/17 00:00 98 11/05/17 20:00 103 I/O 11/05/17 11/05/17 11/05/17 11/06/17 11/06/17 11/06/17 07:00 15:00 23:00 07:00 15:00 23:00 Intake Total 261.5 ml 361.5 ml 261.5 ml Output Total 2400 ml 2400 ml Balance 261.5 ml 361.5 ml -2138.5 ml -2400 ml Intake Oral 0 ml IV Total 261.5 ml 361.5 ml 261.5 ml Output Urine Total 2400 ml 2400 ml # Bowel Movements 1 Result Diagram: 11/06/17 0530 11/06/17 0330 Objective Remarks GENERAL: WBWN AA male, NAD SKIN: Warm and dry. HEAD: Normocephalic. EYES: No scleral icterus. No injection or drainage. NECK: Supple, trachea midline. No JVD or lymphadenopathy. CARDIOVASCULAR: Regular rate and rhythm without murmurs, gallops, or rubs. RESPIRATORY: Breath sounds equal bilaterally. No accessory muscle use. GASTROINTESTINAL: Abdomen soft, non-tender, nondistended. MUSCULOSKELETAL: No cyanosis, or edema. BACK: Nontender without obvious deformity. No CVA tenderness. A/P Assessment and Plan IMPRESSION: 1. Bilateral lung infiltrate with ongoing fever. He has been treated with antibiotic. Cultures have been negative. Possibility of inflammatory process of the lung or alveolitis. 2. Diabetes mellitus. 3. Renal insufficiency has improved. 4. Benign prostatic hypertrophy. 5. Bipolar disorder. PLAN: Cont Abx Check Coag Drake Pt and his sister Explained Bronch procedure and complications He wants to proceed DRAKE Pt Will reschedule bronch for 3PM, / Han Gonsalves MD Nov 06, 2017 19:00
[2017-11-06 20:59] LABS: AUTOMATED NEUTROPHIL # 10.6 TH/MM3 (1.8-7.7); BASOPHIL % 0.3 % (0.0-2.0); EOSINOPHIL # 0.6 TH/MM3 (0-0.4); HEMATOCRIT 26.2 % (39.0-51.0); HEMOGLOBIN 8.7 GM/DL (13.0-17.0); LYMPH % 13.4 % (9.0-44.0); MEAN CELL VOLUME 80.7 FL (80.0-100.0); MEAN CORPUSCULAR HEMOGLOBIN 26.7 PG (27.0-34.0); MEAN PLATELET VOLUME 8.2 FL (7.0-11.0); MONO % 10.2 % (0.0-8.0); MONOCYTE # 1.5 TH/MM3 (0-0.9); NEUT % 72.1 % (16.0-70.0); PLATELET COUNT 805 TH/MM3 (150-450); RED BLOOD COUNT 3.25 MIL/MM3 (4.50-5.90); RED CELL DISTRIBUTION WIDTH 16.3 % (11.6-17.2); WHITE BLOOD COUNT 14.7 TH/MM3 (4.0-11.0)
[2017-11-06 21:08] LABS: INTERNATIONAL NORMALIZED RATIO 1.2 RATIO; PROTHROMBIN TIME - PATIENT 12.1 SEC (9.8-11.6)
[2017-11-06 21:11] LABS: BICARBONATE 22.4 MEQ/L (21.0-32.0); CALCIUM 8.9 MG/DL (8.5-10.1); CREATININE 0.9 MG/DL (0.60-1.30)
[2017-11-06] MEDS: traMADol HCL 50 MG TAB PO PRN (22:47)
[2017-11-06] MEDS: VANCOMYCIN 1,500 MG/NS 500 ML IV SCH ×2 (22:49)
[2017-11-07] VITALS (12 sets, daily range): BP systolic 132–145; BP diastolic 70–84; PULSE 92–100; RESP 16–20; TEMP 98.4–99.8; O2SAT 93–96
[2017-11-07] MEDS: ACETAMINOPHEN 325 MG TAB PO PRN (01:20)
[2017-11-07] MEDS: CHLORHEXIDINE GLUCONATE 2 % 1 PACK (2 CLOTHS) TOP SCH (03:36)
[2017-11-07] MEDS: traMADol HCL 50 MG TAB PO PRN ×2 (05:45→17:28)
[2017-11-07] MEDS: hydrALAZINE HCL 50 MG TAB PO SCH ×2 (05:45→13:12)
[2017-11-07] MEDS: ARTIFICIAL TEARS OPTH SOLN 15 ML BTL EACH EYE SCH ×3 (05:45→22:00)
[2017-11-07] MEDS: ALPRAZolam 0.25 MG TAB PO PRN ×2 (05:45→17:27)
[2017-11-07 07:55] LABS: AUTOMATED NEUTROPHIL # 7.9 TH/MM3 (1.8-7.7); BASOPHIL % 0.3 % (0.0-2.0); EOSINOPHIL # 0.7 TH/MM3 (0-0.4); EOSINOPHIL % 5.2 % (0.0-4.0); HEMATOCRIT 24.7 % (39.0-51.0); HEMOGLOBIN 8.3 GM/DL (13.0-17.0); LYMPH % 19.2 % (9.0-44.0); LYMPHOCYTE # 2.5 TH/MM3 (1.0-4.8); MEAN CELL VOLUME 80.9 FL (80.0-100.0); MEAN CORPUSCULAR HGB CONC 33.4 % (32.0-36.0); MONO % 14.1 % (0.0-8.0); MONOCYTE # 1.8 TH/MM3 (0-0.9); NEUT % 61.2 % (16.0-70.0); PLATELET COUNT 837 TH/MM3 (150-450); RED BLOOD COUNT 3.05 MIL/MM3 (4.50-5.90); RED CELL DISTRIBUTION WIDTH 16.4 % (11.6-17.2)
[2017-11-07] MEDS: CHLORHEXIDINE 0.12% (ORAL KIT) 15 ML CUP MT SCH ×2 (08:00→20:00)
[2017-11-07] MEDS: ENOXAPARIN SODIUM 40 MG/0.4 ML SYRINGE SQ SCH (08:00)
[2017-11-07] MEDS: INSULIN ASPART SUPPLEMENTAL SCALE SQ SCH ×4 (08:00→21:00)
[2017-11-07] MEDS: CHOLESTYRAMINE 4 GM PACKET PO SCH (09:00)
[2017-11-07] MEDS: SODIUM CHLORIDE 0.9% FLUSH 10 ML FLUSH IV FLUSH SCH ×2 (09:58→21:00)
[2017-11-07] MEDS: CARVEDILOL 6.25 MG TAB PO SCH (10:02)
[2017-11-07] MEDS: PANTOPRAZOLE SOD 40 MG DELAYED RELEASE TAB PO SCH (10:02)
[2017-11-07] MEDS: INSULIN DETEMIR 100 UNITS/ML VIAL SQ SCH (10:03)
[2017-11-07] MEDS: VANCOMYCIN 1,500 MG/NS 500 ML IV SCH ×2 (10:04)
[2017-11-07] MEDS: NYSTATIN 100,000 U/GM PWD 15 GM BTL TOPICAL SCH ×2 (10:04→21:00)
--- NOTE | 2017-11-07 10:42 | HHI.IDPN ---
Subjective Subjective Remarks Patient is a 42-year-old male, brought into the hospital for evaluation of multiple symptoms. He apparently has been having problem with poor p.o. intake , and thirst and increasing fluid intake. There is also mention that he has had problem with nausea and vomiting and some confusion. The symptoms have been going on for about a month. Was brought into the emergency room, and he was found to have a blood sugar of 1800, creatinine was up to 3, sodium 21, and he has multiple abnormal electrolytes. He also had acidosis, and high fevers. His white count was elevated. In the ED he became more unresponsive, and he ended up getting intubated. He was initially on pressors. He was also found to have a very elevated CPK. His electrolytes stabilized, and his acidosis improved. Creatinine improved, and he has improvement in his urine output. He had 2 blood cultures done and those are negative. He was started on empiric antibiotics for possible aspiration. Initial urinalysis was unremarkable. Patient remains on the vent. His mental status still has not improved. Neurology has been consulted. Patient's temperatures seem to have improved. His chest x-ray showing bilateral pulmonary infiltrates and some nodular infiltrates. He has been getting vancomycin, cefepime, and Flagyl. His CPKs are still elevated, and his LFTs were also elevated. Patient also during his hospitalization had episode of V. tach and was resuscitated successfully. Infectious disease consultation has been requested to evaluate patient with high fevers. Notes reviewed One low grade temps overnight Repeat BC have been negative Bronch scheduled for this afternoon No new complaints Qfever negative Bartonella negative Last CXR with worsening infiltrates SHASHI has vegetation small in AV WBC lower at 14K HIV negative Hepatitis negative Antibiotics Rocephin Vancomycin Current Medications Medications (Trade) Dose Ordered Sig/Jacky Route Start Time Stop Time Status Last Admin (NS Flush) 2 ml UNSCH PRN IV FLUSH 10/19/17 02:30 (NS Flush) 2 ml BID IV FLUSH 10/19/17 09:00 11/07/17 09:58 (Albuterol Neb) 2.5 mg Q2HR NEB PRN INH 10/19/17 02:30 10/24/17 08:36 ([facility] [place] Nursing Information) 1 Q361D XX 10/19/17 02:30 10/19/17 02:30 (Chlorhexidine 2% Cloth) 3 pack Taper DAILY@04 TOP 10/19/17 04:00 10/15/18 03:59 10/27/17 04:00 (Chlorhexidine 2% Cloth) 3 pack UNSCH PRN TOP 10/19/17 02:30 (Milk Of Magnesia Liq) 30 ml Q12H PRN PO 10/19/17 02:30 Future Hold (Senokot) 17.2 mg Q12H PRN PO 10/19/17 02:30 Future Hold (Dulcolax Supp) 10 mg DAILY PRN RECTAL 10/19/17 02:30 (Zofran Odt) 4 mg Q6H PRN PO 10/19/17 02:30 10/29/17 23:44 (Tears Naturale Opth Soln) 1 drop Q8HR EACH EYE 10/19/17 06:00 11/06/17 22:00 (Peridex 0.12% Liq) 15 ml BID@08,20 MT 10/19/17 08:00 11/04/17 08:47 Acetaminophen 100 ml @ 400 mls/hr Q8H PRN IV 10/19/17 03:30 11/02/17 10:54 (Brethine Inj) 1 mg UNSCH PRN SQ 10/19/17 07:45 (Lactulose Liq) 30 ml DAILY PRN PO 10/23/17 21:30 Future Hold (D50w (Vial) Inj) 50 ml UNSCH PRN IV PUSH 10/24/17 21:00 (Glucagon Inj) 1 mg UNSCH PRN OTHER 10/24/17 21:00 (Levemir Inj) 5 units Q12HR SQ 10/25/17 10:00 11/07/17 10:03 (Norvasc) 10 mg DAILY PO 10/26/17 09:00 11/07/17 10:02 (Lovenox Inj) 40 mg Q24H SQ 10/26/17 08:00 11/06/17 10:00 (Protonix) 40 mg Q12HR PO 10/27/17 21:00 11/07/17 10:02 (Apresoline) 50 mg Q8HR PO 10/27/17 22:00 11/07/17 05:45 (NovoLOG SUPPLEMENTAL SCALE) 1 ACHS SLIDING SCALE SQ 10/27/17 17:00 11/06/17 18:53 (Mycostatin Powder) 1 applic Q12HR TOPICAL 10/27/17 21:00 11/07/17 10:04 (Ultram) 50 mg Q8H PRN PO 10/29/17 13:15 11/07/17 05:45 Pharmacy Profile Note 0 ml @ 0 mls/hr UNSCH OTHER 10/31/17 12:00 Ceftriaxone Sodium 2000 mg/ Sodium Chloride 100 ml @ 200 mls/hr Q24H IV 10/31/17 13:00 11/06/17 14:38 (Coreg) 6.25 mg Q12HR PO 11/02/17 21:00 11/07/17 10:02 (Xanax) 0.25 mg Q6HR PRN PO 11/03/17 12:30 11/07/17 05:45 (Tylenol) 325 mg Q4H PRN PO 11/03/17 18:45 11/07/17 01:20 (Questran 4 Gm Pkt) 4 gm DAILY PO 11/05/17 09:00 11/06/17 10:01 (Librium) 50 mg TID PRN PO 11/05/17 13:15 Vancomycin HCl 1500 mg/Sodium Chloride 515 ml @ 257.5 mls/ hr Q12H IV 11/06/17 22:00 11/07/17 10:04 ([facility] [place] [facility] Ordered Lab Info) SPECIFIC LAB TO BE DRAWN:VANCO TROUGH DATE... ONCE ONCE .XX 11/08/17 09:45 11/08/17 09:46 Lines PIV no evidence of infection Past Medical History Depression/anxiety Hypertension NSAID use Allergies: Coded Allergies: No Known Allergies (Unverified Allergy, Unknown, 10/18/17) Objective . Vital Signs Date Time Temp Pulse Resp B/P (MAP) Pulse Ox O2 Delivery O2 Flow Rate FiO2 11/07/17 08:45 99.2 96 20 142/84 (103) 95 11/07/17 04:18 98.4 96 16 145/81 (102) 94 11/07/17 04:13 95 11/07/17 01:05 18 11/06/17 23:58 100.4 96 16 139/74 (95) 95 11/06/17 23:56 97 11/06/17 22:45 Nasal Cannula 2.00 11/06/17 20:50 99.3 107 16 156/77 (103) 97 11/06/17 20:06 111 11/06/17 18:05 99.1 97 18 143/90 (107) 96 11/06/17 17:34 95 Nasal Cannula 2.00 11/06/17 16:00 Nasal Cannula 2.00 11/06/17 16:00 99 11/06/17 12:05 99.5 102 18 136/91 (106) 95 11/06/17 12:00 100 11/06/17 12:00 Nasal Cannula 2.00 . Laboratory Tests Test 11/06/17 05:30 11/06/17 20:35 11/07/17 07:30 White Blood Count 15.3 TH/MM3 14.7 TH/MM3 13.0 TH/MM3 Red Blood Count 3.01 MIL/MM3 3.25 MIL/MM3 3.05 MIL/MM3 Hemoglobin 8.0 GM/DL 8.7 GM/DL 8.3 GM/DL Hematocrit 24.4 % 26.2 % 24.7 % Mean Corpuscular Volume 81.1 FL 80.7 FL 80.9 FL Mean Corpuscular Hemoglobin 26.7 PG 26.7 PG 27.0 PG Mean Corpuscular Hemoglobin Concent 32.9 % 33.0 % 33.4 % Red Cell Distribution Width 16.3 % 16.3 % 16.4 % Platelet Count 831 TH/MM3 805 TH/MM3 837 TH/MM3 Mean Platelet Volume 8.6 FL 8.2 FL 8.0 FL Neutrophils (%) (Auto) 65.3 % 72.1 % 61.2 % Lymphocytes (%) (Auto) 15.2 % 13.4 % 19.2 % Monocytes (%) (Auto) 13.0 % 10.2 % 14.1 % Eosinophils (%) (Auto) 4.1 % 4.0 % 5.2 % Basophils (%) (Auto) 2.4 % 0.3 % 0.3 % Neutrophils # (Auto) 10.0 TH/MM3 10.6 TH/MM3 7.9 TH/MM3 Lymphocytes # (Auto) 2.3 TH/MM3 2.0 TH/MM3 2.5 TH/MM3 Monocytes # (Auto) 2.0 TH/MM3 1.5 TH/MM3 1.8 TH/MM3 Eosinophils # (Auto) 0.6 TH/MM3 0.6 TH/MM3 0.7 TH/MM3 Basophils # (Auto) 0.4 TH/MM3 0.0 TH/MM3 0.0 TH/MM3 CBC Comment AUTO DIFF DIFF FINAL DIFF FINAL Differential Comment AUTO DIFF CONFIRMED Platelet Estimate HIGH Platelet Morphology Comment NORMAL Laboratory Tests Test 11/06/17 03:30 11/06/17 20:35 Blood Urea Nitrogen 7 MG/DL 8 MG/DL Creatinine 0.88 MG/DL 0.90 MG/DL Random Glucose 111 MG/DL 133 MG/DL Total Protein 7.2 GM/DL Albumin 2.4 GM/DL Calcium Level 8.8 MG/DL 8.9 MG/DL Phosphorus Level 3.4 MG/DL Magnesium Level 1.8 MG/DL Alkaline Phosphatase 142 U/L Aspartate Amino Transf (AST/SGOT) 68 U/L Alanine Aminotransferase (ALT/SGPT) 71 U/L Total Bilirubin 0.4 MG/DL Sodium Level 139 MEQ/L 138 MEQ/L Potassium Level 3.6 MEQ/L 3.7 MEQ/L Chloride Level 105 MEQ/L 105 MEQ/L Carbon Dioxide Level 21.4 MEQ/L 22.4 MEQ/L Anion Gap 13 MEQ/L 11 MEQ/L Estimat Glomerular Filtration Rate 116 ML/MIN 113 ML/MIN Microbiology Date/Time Source Procedure Growth Status 11/05/17 18:20 Stool Stool Stool Occult Blood ([facility]) - Final HEMOCCULT NEGATIVE Complete Imaging Last 72 hours Impressions Abdomen/Pelvis CT 10/27/17 0000 Signed Impressions: CONCLUSION: 1. No evidence of retroperitoneal hemorrhage. 2. Bibasilar subsegmental airspace disease and small bilateral effusions. 3. Patchy areas of hypodensity throughout the liver and spleen of uncertain et iology. Considering patient's history a septic vascular embolic process should be considered. 4. Minimal air in the urinary bladder. 5. Developing anasarca. Chest X-Ray 10/26/17 0600 Signed Impressions: CONCLUSION: Diffuse consolidation likely related to diffuse underlying processes such as ed aaron or diffuse inflammatory change. Last 72 hours Impressions Chest X-Ray 10/24/17 0600 Signed Impressions: CONCLUSION: No significant change. Bilateral pulmonary opacities remain. Head CT 10/24/17 0000 Signed Impressions: CONCLUSION: 1. No acute intracranial abnormality. Gall Bladder Ultrasound 10/23/17 0000 Signed Impressions: CONCLUSION: 1. There is increased echogenicity of the liver suggestive of fatty infiltrati on and/or hepatocellular disease. 2. No evidence of gallstones or biliary tract obstruction. Chest X-Ray 10/23/17 Signed Impressions: CONCLUSION: Scattered bilateral pulmonary infiltrates. Last Impressions Gall Bladder Ultrasound 10/23/17 Signed Impressions: CONCLUSION: Chest X-Ray 10/23/17 Signed Impressions: CONCLUSION: Scattered bilateral pulmonary infiltrates. Renal Ultrasound 10/19/17 Signed Impressions: Service Date/Time: Thursday, October 19, 2017 09:46 - CONCLUSION: Normal examination. Alexx Baig MD Physical Exam GENERAL: Awake and alert, NAD. SKIN: Cool and dry. No generalized rash. HEAD: Atraumatic. Normocephalic. No temporal wasting, or tenderness. EYES: [place] conjunctiva. No petechia or hemorrhage. Has dirty sclera. EARS, NOSE AND THROAT: Nose without bleeding or purulent nasal discharge. Moist mucosa NECK: Trachea midline. Supple and not tender, no meningeal signs CARDIOVASCULAR: Regular rate and rhythm. No murmurs, rubs or gallops heard RESPIRATORY: Decreased BS at bases ABDOMEN: Distended, mild tenderness, not guarding, bowel sounds present and hypoactive. EXTREMITIES: Warm, has pitting edema. Has embolic lesions tip of 3 fingers on his R hand NEUROLOGICAL: Grossly non-focal PSYCHIATRIC: Calm and cooperative LINE: No evidence of infection Assessment & Plan Remarks IMPRESSION Possible sepsis on initial presentation with fevers, dec LOC, MOSF - better - source possible lung, has aishwarya nodular infiltrates, BC negative, no sputum C/S Has multiple embolic lesions, source? - his BC have been negative - initial echo ok Endocarditis - C/S have been negative on admission - ?Culture negative endocarditis Aishwarya pulmonary infiltrates, etiology? 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
--- NOTE | 2017-11-07 11:27 | HHI.PR ---
Subjective Remarks Follow-up endocarditis/questionable bilateral pulmonary infiltrate November 06, 2017-patient seen and examined, patient is alert and oriented 3, currently afebrile, and denies any chest pain or shortness of breath November 07, 2017-patient seen and examined, reports of loose stool with streak of blood. Currently n.p.o. pending bronchoscopy today. Objective Vitals Vital Signs Date Time Temp Pulse Resp B/P (MAP) Pulse Ox O2 Delivery O2 Flow Rate FiO2 11/07/17 08:45 99.2 96 20 142/84 (103) 95 11/07/17 04:18 98.4 96 16 145/81 (102) 94 11/07/17 04:13 95 11/07/17 01:05 18 11/06/17 23:58 100.4 96 16 139/74 (95) 95 11/06/17 23:56 97 11/06/17 22:45 Nasal Cannula 2.00 11/06/17 20:50 99.3 107 16 156/77 (103) 97 11/06/17 20:06 111 11/06/17 18:05 99.1 97 18 143/90 (107) 96 11/06/17 17:34 95 Nasal Cannula 2.00 11/06/17 16:00 Nasal Cannula 2.00 11/06/17 16:00 99 11/06/17 12:05 99.5 102 18 136/91 (106) 95 11/06/17 12:00 100 11/06/17 12:00 Nasal Cannula 2.00 I/O 11/06/17 11/06/17 11/06/17 11/07/17 11/07/17 11/07/17 07:00 15:00 23:00 07:00 15:00 23:00 Intake Total 420 ml 720 ml Output Total 2400 ml 1400 ml 2760 ml Balance -2400 ml -980 ml -2040 ml Intake Oral 420 ml 720 ml Output Urine Total 2400 ml 1400 ml 2760 ml # Bowel Movements 2 1 Result Diagram: 11/07/1772911/06/172034 Objective Remarks GENERAL: NAD SKIN: Warm and dry. HEAD: Normocephalic. EYES: No scleral icterus. No injection or drainage. NECK: Supple, trachea midline. No JVD or lymphadenopathy. CARDIOVASCULAR: Regular rate and rhythm without murmurs, gallops, or rubs. RESPIRATORY: Breath sounds equal bilaterally. No accessory muscle use. GASTROINTESTINAL: Abdomen soft, non-tender, nondistended. MUSCULOSKELETAL: No cyanosis, or edema. BACK: Nontender without obvious deformity. No CVA tenderness. Date of Insertion: October 19, 2017 A/P Problem List: (1) Acute respiratory failure ICD Code: J96.00 - Acute respiratory failure, unspecified whether with hypoxia or hypercapnia (2) Acute encephalopathy ICD Code: G93.40 - Encephalopathy, unspecified Status: Acute (3) Normocytic anemia ICD Code: D64.9 - Anemia, unspecified (4) Lactic acidosis ICD Code: E87.2 - Acidosis Status: Acute (5) Hypoalbuminemia ICD Code: E88.09 - Other disorders of plasma-protein metabolism, not elsewhere classified (6) Hypophosphatemia ICD Code: E83.39 - Other disorders of phosphorus metabolism Status: Acute (7) Hypokalemia ICD Code: E87.6 - Hypokalemia Status: Acute (8) Hypermagnesemia ICD Code: E83.41 - Hypermagnesemia (9) Acute kidney injury ICD Code: N17.9 - Acute kidney failure, unspecified Status: Acute (10) Leukocytosis ICD Code: D72.829 - Elevated white blood cell count, unspecified Status: Acute (11) Hyponatremia ICD Code: E87.1 - Hypo-osmolality and hyponatremia Status: Acute (12) Hypertension ICD Code: I10 - Essential (primary) hypertension (13) Pyrexia ICD Code: R50.9 - Fever, unspecified Status: Acute (14) Depression ICD Code: F32.9 - Major depressive disorder, single episode, unspecified (15) Ketoacidosis due to secondary diabetes ICD Code: E13.10 - Other specified diabetes mellitus with ketoacidosis without coma Status: Acute (16) BMI 37.0-37.9, adult ICD Code: Z68.37 - Body mass index (BMI) 37.0-37.9, adult Status: Acute Assessment and Plan 42-year-old man with: Endocarditis, sepsis, fevers Patient has multiple embolic lesions, SHASHI shows aortic valve vegetation 0.7 x 0.8 cm Patient continues to show low-grade fevers Awaiting slow-growing cultures from microbiology Infectious disease recommends staying with Rocephin and vancomycin for now If fevers persist consider HACEK work up and addition of doxycycline for expanded coverage if ID agrees (for culture negative endocarditis) Appreciate infectious disease consult Appreciate cardiology workup Hypertension Continue Norvasc, Coreg,and hydralazine. Anxiety Xanax added Acute hypoxic and hypercarbic respiratory failure-resolved Bilateral pulmonary infiltrate Extubated 10/24/2017, doing well on nasal cannula oxygen Pulmonology consulted for abnormalities on imaging Bronchoscopy pending at this a.m. November 07, 2017 Upper GI bleed By patient history he vomited blood with some clots 2 weeks prior to admission Gastroenterology consulted Continue pantoprazole Acute hyperglycemic state Continue sliding-scale insulin with Accu-Cheks Continue Levemir 5 U q12h, hemoglobin A1c 13. Diabetic diet Tinea cruris Continue nystatin DVT prophylaxis Hold Lovenox Problem Qualifiers (1) Acute respiratory failure: Qualified Codes: J96.01 - Acute respiratory failure with hypoxia; J96.02 - Acute respiratory failure with hypercapnia (2) Pyrexia: Qualified Codes: R50.9 - Fever, unspecified (3) Depression: Qualified Codes: F32.9 - Major depressive disorder, single episode, unspecified Nagi Goldstein MD Nov 07, 2017 11:27
[2017-11-07] MEDS: cefTRIAXone INJ 2,000 MG in SODIUM CHLORIDE 0.9% INJ 100 ML IV SCH (13:12)
[2017-11-07 13:57] LABS: SMOOTH MUSCLE TOTAL AUTOABS Positive 1:40 (Negative)
[2017-11-07] MEDS ORDERED: SUGAMMADEX SODIUM 200 MG/2 ML VIAL IV PUSH ONE (15:37)
[2017-11-07] MEDS ORDERED: DO NOT ADM ANY ANTICOAGULANT DRUGS PRN (15:53)
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
--- NOTE | 2017-11-07 16:13 | MR ---
cc: Han Gonsalves MD DATE: 11/07/2017 PROCEDURE PERFORMED: Bronchoscopy. PREOPERATIVE DIAGNOSIS: Bilateral lung infiltrate. POSTOPERATIVE DIAGNOSIS: Lung infiltrate. DESCRIPTION OF PROCEDURE: Informed consent was obtained from the patient. The procedure and the complications, including complication of anesthesia, pneumothorax requiring chest tube, bleeding complication, injury to the blood vessel, lungs, nose, arrhythmia, hypoxia were explained. He consented for the procedure. The patient was brought to endoscopy suite. Under general anesthesia, endotracheal tube was placed by Anesthesia. The bronchoscope was advanced through endotracheal tube. Main jonathan is sharp. Bronchoscope was advanced to the right lung, right upper, middle, lower lobe visualized all subsegments. No significant drainage was noted. No endobronchial lesion seen. Then, bronchoscope pulled back and advanced to the left lung. Left upper lingular, lower lobe visualized. All subsegments were patent. No drainage was noted. Left upper lobe brushing, biopsy and washings were done. There is small amount of bleeding controlled with saline lavage. Biopsy sent for pathology. Brushings sent for cytology. Washings sent for cytology, routine culture, AFB, fungal culture, cell count with differential and respiratory viral panel. He tolerated the procedure well. Postprocedure chest x-ray ordered to rule out pneumothorax. Han Gonsalves MD ADA/TL , 03:42 PM , 04:13 PM
[2017-11-07 17:52] LABS: CERULOPLASMIN 30 mg/dL (18-36)
--- NOTE | 2017-11-07 18:23 | HHI.PR ---
Subjective Remarks 42 YOAA male with Bipolar disorder, Lung infilt, fever No Sputum Denies sob no CP Had Bronch, no mass, erythema or secretions Objective Vital Signs Vital Signs Date Time Temp Pulse Resp B/P (MAP) Pulse Ox O2 Delivery O2 Flow Rate FiO2 11/07/17 17:39 94 Nasal Cannula 2.00 11/07/17 16:45 92 18 137/78 (97) 94 Nasal Cannula 2 11/07/17 16:30 88 18 131/77 (95) 94 Nasal Cannula 2 11/07/17 16:15 86 18 132/76 (94) 94 Nasal Cannula 2 11/07/17 16:00 94 18 106/55 (72) 94 Nasal Cannula 2 11/07/17 15:53 97.9 99 18 111/68 (82) 97 Nasal Cannula 2 11/07/17 14:22 96 Nasal Cannula 2.00 11/07/17 12:30 98.4 92 20 134/76 (95) 95 11/07/17 08:45 99.2 96 20 142/84 (103) 95 11/07/17 08:00 92 11/07/17 04:18 98.4 96 16 145/81 (102) 94 11/07/17 04:13 95 11/07/17 01:05 18 11/06/17 23:58 100.4 96 16 139/74 (95) 95 11/06/17 23:56 97 11/06/17 22:45 Nasal Cannula 2.00 11/06/17 20:50 99.3 107 16 156/77 (103) 97 11/06/17 20:06 111 I/O 11/06/17 11/06/17 11/06/17 11/07/17 11/07/17 11/07/17 07:00 15:00 23:00 07:00 15:00 23:00 Intake Total 420 ml 720 ml 10 ml Output Total 2400 ml 1400 ml 2760 ml Balance -2400 ml -980 ml -2040 ml 10 ml Intake Oral 420 ml 720 ml IV Total 10 ml Output Urine Total 2400 ml 1400 ml 2760 ml # Bowel Movements 2 1 Result Diagram: 11/07/17 0730 11/06/172034 Objective Remarks GENERAL: WBWN AA male, NAD SKIN: Warm and dry. HEAD: Normocephalic. EYES: No scleral icterus. No injection or drainage. NECK: Supple, trachea midline. No JVD or lymphadenopathy. CARDIOVASCULAR: Regular rate and rhythm without murmurs, gallops, or rubs. RESPIRATORY: Breath sounds equal bilaterally. No accessory muscle use. GASTROINTESTINAL: Abdomen soft, non-tender, nondistended. MUSCULOSKELETAL: No cyanosis, or edema. BACK: Nontender without obvious deformity. No CVA tenderness. A/P Assessment and Plan IMPRESSION: 1. Bilateral lung infiltrate with ongoing fever. He has been treated with antibiotic. Cultures have been negative. Possibility of inflammatory process of the lung or alveolitis. 2. Diabetes mellitus. 3. Renal insufficiency has improved. 4. Benign prostatic hypertrophy. 5. Bipolar disorder. PLAN: Cont Abx CXR Check BAL, Bx results DW Pt Han Gonsalves MD Nov 07, 2017 18:23
[2017-11-08] VITALS (10 sets, daily range): BP systolic 118–152; BP diastolic 62–72; PULSE 92–99; RESP 16–21; TEMP 98.6–99.6; O2SAT 95–97
[2017-11-08] MEDS: INSULIN DETEMIR 100 UNITS/ML VIAL SQ SCH ×3 (00:23→20:31)
[2017-11-08] MEDS: CARVEDILOL 6.25 MG TAB PO SCH ×3 (00:24→20:31)
[2017-11-08] MEDS: hydrALAZINE HCL 50 MG TAB PO SCH ×4 (00:24→20:31)
[2017-11-08] MEDS: LACTOBACILLUS ACIDOPHILUS TAB PO SCH ×3 (00:24→20:31)
[2017-11-08] MEDS: PANTOPRAZOLE SOD 40 MG DELAYED RELEASE TAB PO SCH ×3 (00:24→20:31)
[2017-11-08] MEDS: VANCOMYCIN 1,500 MG/NS 500 ML IV SCH ×6 (00:25→21:42)
[2017-11-08] MEDS: ALPRAZolam 0.25 MG TAB PO PRN ×3 (03:19→20:30)
[2017-11-08] MEDS: CHLORHEXIDINE GLUCONATE 2 % 1 PACK (2 CLOTHS) TOP SCH (03:33)
[2017-11-08] MEDS: ARTIFICIAL TEARS OPTH SOLN 15 ML BTL EACH EYE SCH ×3 (05:39→21:42)
[2017-11-08 06:26] LABS: AUTOMATED NEUTROPHIL # 7.1 TH/MM3 (1.8-7.7); BASOPHIL # 0.3 TH/MM3 (0-0.2); BASOPHIL % 2.2 % (0.0-2.0); EOSINOPHIL # 0.7 TH/MM3 (0-0.4); EOSINOPHIL % 6.2 % (0.0-4.0); HEMATOCRIT 24.2 % (39.0-51.0); HEMOGLOBIN 8.1 GM/DL (13.0-17.0); LYMPH % 20.6 % (9.0-44.0); LYMPHOCYTE # 2.5 TH/MM3 (1.0-4.8); MEAN CORPUSCULAR HGB CONC 33.4 % (32.0-36.0); MEAN PLATELET VOLUME 8.1 FL (7.0-11.0); MONO % 11.7 % (0.0-8.0); MONOCYTE # 1.4 TH/MM3 (0-0.9); NEUT % 59.3 % (16.0-70.0); PLATELET COUNT 767 TH/MM3 (150-450); RED BLOOD COUNT 2.98 MIL/MM3 (4.50-5.90); RED CELL DISTRIBUTION WIDTH 16.3 % (11.6-17.2); WHITE BLOOD COUNT 11.9 TH/MM3 (4.0-11.0)
[2017-11-08 06:59] LABS: ALBUMIN 2.5 GM/DL (3.4-5.0); AST (GOT) 57 U/L (15-37); BICARBONATE 22.9 MEQ/L (21.0-32.0); BLOOD UREA NITROGEN 8 MG/DL (7-18); CALCIUM 8.6 MG/DL (8.5-10.1); CHLORIDE 104 MEQ/L (98-107); GLOMERULAR FILTRATION RATE 113 ML/MIN (>89); GLUCOSE,RANDOM 113 MG/DL (74-106); SODIUM (NA) 138 MEQ/L (136-145)
[2017-11-08 07:00] LABS: ALT (GPT) 60 U/L (12-78)
[2017-11-08 07:02] LABS: ALKALINE PHOSPHATASE 138 U/L (45-117); TOTAL BILIRUBIN ADULT 0.3 MG/DL (0.2-1.0); TOTAL PROTEIN 7.2 GM/DL (6.4-8.2)
[2017-11-08] MEDS: INSULIN ASPART SUPPLEMENTAL SCALE SQ SCH ×4 (08:00→21:00)
[2017-11-08] MEDS: CHLORHEXIDINE 0.12% (ORAL KIT) 15 ML CUP MT SCH ×2 (08:00→20:00)
[2017-11-08] MEDS: ENOXAPARIN SODIUM 40 MG/0.4 ML SYRINGE SQ SCH (09:43)
[2017-11-08] MEDS: CHOLESTYRAMINE 4 GM PACKET PO SCH (09:43)
[2017-11-08] MEDS: NYSTATIN 100,000 U/GM PWD 15 GM BTL TOPICAL SCH ×2 (09:44→21:00)
[2017-11-08] MEDS: SODIUM CHLORIDE 0.9% FLUSH 10 ML FLUSH IV FLUSH SCH ×2 (09:44→20:32)
[2017-11-08] MEDS ORDERED: PHARMACY ORDERED LAB ONE (09:45)
--- NOTE | 2017-11-08 10:44 | HHI.IDPN ---
Subjective Subjective Remarks Patient is a 42-year-old male, brought into the hospital for evaluation of multiple symptoms. He apparently has been having problem with poor p.o. intake , and thirst and increasing fluid intake. There is also mention that he has had problem with nausea and vomiting and some confusion. The symptoms have been going on for about a month. Was brought into the emergency room, and he was found to have a blood sugar of 1800, creatinine was up to 3, sodium 21, and he has multiple abnormal electrolytes. He also had acidosis, and high fevers. His white count was elevated. In the ED he became more unresponsive, and he ended up getting intubated. He was initially on pressors. He was also found to have a very elevated CPK. His electrolytes stabilized, and his acidosis improved. Creatinine improved, and he has improvement in his urine output. He had 2 blood cultures done and those are negative. He was started on empiric antibiotics for possible aspiration. Initial urinalysis was unremarkable. Patient remains on the vent. His mental status still has not improved. Neurology has been consulted. Patient's temperatures seem to have improved. His chest x-ray showing bilateral pulmonary infiltrates and some nodular infiltrates. He has been getting vancomycin, cefepime, and Flagyl. His CPKs are still elevated, and his LFTs were also elevated. Patient also during his hospitalization had episode of V. tach and was resuscitated successfully. Infectious disease consultation has been requested to evaluate patient with high fevers. Notes reviewed Temps low grade Had bronch yesterday Bronch G/S no purulent Cytology and biopsy pending Qfever negative Bartonella negative SHASHI has vegetation small in AV WBC improving LFT improving HIV negative Hepatitis negative Antibiotics Rocephin Vancomycin Current Medications Medications (Trade) Dose Ordered Sig/Jacky Route Start Time Stop Time Status Last Admin (NS Flush) 2 ml UNSCH PRN IV FLUSH 10/19/17 02:30 (NS Flush) 2 ml BID IV FLUSH 10/19/17 09:00 11/08/17 09:44 (Albuterol Neb) 2.5 mg Q2HR NEB PRN INH 10/19/17 02:30 10/24/17 08:36 ([facility] Nursing Information) 1 Q361D XX 10/19/17 02:30 10/19/17 02:30 (Chlorhexidine 2% Cloth) 3 pack Taper DAILY@04 [facility] 10/19/17 04:00 10/15/18 03:59 10/27/17 04:00 (Chlorhexidine 2% Cloth) 3 pack UNSCH PRN TOP 10/19/17 02:30 (Milk Of Magnesia Liq) 30 ml Q12H PRN PO 10/19/17 02:30 Future Hold (Senokot) 17.2 mg Q12H PRN PO 10/19/17 02:30 Future Hold (Dulcolax Supp) 10 mg DAILY PRN RECTAL 10/19/17 02:30 (Zofran Odt) 4 mg Q6H PRN PO 10/19/17 02:30 10/29/17 23:44 (Tears Naturale Opth Soln) 1 drop Q8HR EACH EYE 10/19/17 06:00 11/08/17 05:39 (Peridex 0.12% Liq) 15 ml BID@08,20 MT 10/19/17 08:00 11/07/17 20:00 (Brethine Inj) 1 mg UNSCH PRN SQ 10/19/17 07:45 (Lactulose Liq) 30 ml DAILY PRN PO 10/23/17 21:30 Future Hold (D50w (Vial) Inj) 50 ml UNSCH PRN IV PUSH 10/24/17 21:00 (Glucagon Inj) 1 mg UNSCH PRN OTHER 10/24/17 21:00 (Levemir Inj) 5 units Q12HR SQ 10/25/17 10:00 11/08/17 09:44 (Norvasc) 10 mg DAILY PO 10/26/17 09:00 11/08/17 09:43 (Lovenox Inj) 40 mg Q24H SQ 10/26/17 08:00 11/08/17 09:43 (Protonix) 40 mg Q12HR PO 10/27/17 21:00 11/08/17 09:43 (Apresoline) 50 mg Q8HR PO 10/27/17 22:00 11/08/17 05:41 (NovoLOG SUPPLEMENTAL SCALE) 1 ACHS SLIDING SCALE SQ 10/27/17 17:00 11/07/17 16:30 (Mycostatin Powder) 1 applic Q12HR TOPICAL 10/27/17 21:00 11/08/17 09:44 (Ultram) 50 mg Q8H PRN PO 10/29/17 13:15 11/07/17 17:28 Pharmacy Profile Note 0 ml @ 0 mls/hr UNSCH OTHER 10/31/17 12:00 Ceftriaxone Sodium 2000 mg/ Sodium Chloride 100 ml @ 200 mls/hr Q24H IV 10/31/17 13:00 11/07/17 13:12 (Coreg) 6.25 mg Q12HR PO 11/02/17 21:00 11/08/17 09:43 (Xanax) 0.25 mg Q6HR PRN PO 11/03/17 12:30 11/08/17 03:19 (Tylenol) 325 mg Q4H PRN PO 11/03/17 18:45 11/07/17 01:20 (Questran 4 Gm Pkt) 4 gm DAILY PO 11/05/17 09:00 11/08/17 09:43 (Librium) 50 mg TID PRN PO 11/05/17 13:15 Vancomycin HCl 1500 mg/Sodium Chloride 515 ml @ 257.5 mls/ hr Q12H IV 11/06/17 22:00 11/08/17 09:44 (Lactinex) 1 tab Q12HR PO 11/07/17 21:00 11/08/17 09:43 ([facility] Nursing Information) ALL NURSING DEPARTME... UNSCH PRN .XX 11/07/17 15:53 11/08/17 15:52 Patient has been on Abx since 10/19 Lines PIV no evidence of infection Past Medical History Depression/anxiety Hypertension NSAID use Allergies: Coded Allergies: No Known Allergies (Unverified Allergy, Unknown, 10/18/17) Objective . Vital Signs Date Time Temp Pulse Resp B/P (MAP) Pulse Ox O2 Delivery O2 Flow Rate FiO2 11/08/17 08:00 99.1 99 20 152/72 (98) 96 11/08/17 04:01 95 11/08/17 03:28 99.6 95 18 118/72 (87) 97 11/08/17 00:02 98 11/07/17 23:54 99.8 97 18 135/71 (92) 95 11/07/17 20:57 99.8 98 18 143/72 (95) 93 11/07/17 20:00 100 11/07/17 17:39 94 Nasal Cannula 2.00 11/07/17 16:45 92 18 137/78 (97) 94 Nasal Cannula 2 11/07/17 16:30 88 18 131/77 (95) 94 Nasal Cannula 2 11/07/17 16:15 86 18 132/76 (94) 94 Nasal Cannula 2 11/07/17 16:00 99.1 92 20 132/70 (90) 95 11/07/17 16:00 99 11/07/17 16:00 94 18 106/55 (72) 94 Nasal Cannula 2 11/07/17 15:53 97.9 99 18 111/68 (82) 97 Nasal Cannula 2 11/07/17 14:22 96 Nasal Cannula 2.00 11/07/17 12:30 98.4 92 20 134/76 (95) 95 11/07/17 12:00 Nasal Cannula 2.00 11/07/17 12:00 93 . Laboratory Tests Test 11/06/17 20:35 11/07/17 07:30 11/08/17 05:10 White Blood Count 14.7 TH/MM3 13.0 TH/MM3 11.9 TH/MM3 Red Blood Count 3.25 MIL/MM3 3.05 MIL/MM3 2.98 MIL/MM3 Hemoglobin 8.7 GM/DL 8.3 GM/DL 8.1 GM/DL Hematocrit 26.2 % 24.7 % 24.2 % Mean Corpuscular Volume 80.7 FL 80.9 FL 81.0 FL Mean Corpuscular Hemoglobin 26.7 PG 27.0 PG 27.0 PG Mean Corpuscular Hemoglobin Concent 33.0 % 33.4 % 33.4 % Red Cell Distribution Width 16.3 % 16.4 % 16.3 % Platelet Count 805 TH/MM3 837 TH/MM3 767 TH/MM3 Mean Platelet Volume 8.2 FL 8.0 FL 8.1 FL Neutrophils (%) (Auto) 72.1 % 61.2 % 59.3 % Lymphocytes (%) (Auto) 13.4 % 19.2 % 20.6 % Monocytes (%) (Auto) 10.2 % 14.1 % 11.7 % Eosinophils (%) (Auto) 4.0 % 5.2 % 6.2 % Basophils (%) (Auto) 0.3 % 0.3 % 2.2 % Neutrophils # (Auto) 10.6 TH/MM3 7.9 TH/MM3 7.1 TH/MM3 Lymphocytes # (Auto) 2.0 TH/MM3 2.5 TH/MM3 2.5 TH/MM3 Monocytes # (Auto) 1.5 TH/MM3 1.8 TH/MM3 1.4 TH/MM3 Eosinophils # (Auto) 0.6 TH/MM3 0.7 TH/MM3 0.7 TH/MM3 Basophils # (Auto) 0.0 TH/MM3 0.0 TH/MM3 0.3 TH/MM3 CBC Comment DIFF FINAL DIFF FINAL DIFF FINAL Differential Comment Laboratory Tests Test 11/06/17 20:35 11/08/17 05:10 Blood Urea Nitrogen 8 MG/DL 8 MG/DL Creatinine 0.90 MG/DL 0.90 MG/DL Random Glucose 133 MG/DL 113 MG/DL Calcium Level 8.9 MG/DL 8.6 MG/DL Sodium Level 138 MEQ/L 138 MEQ/L Potassium Level 3.7 MEQ/L 3.5 MEQ/L Chloride Level 105 MEQ/L 104 MEQ/L Carbon Dioxide Level 22.4 MEQ/L 22.9 MEQ/L Anion Gap 11 MEQ/L 11 MEQ/L Estimat Glomerular Filtration Rate 113 ML/MIN 113 ML/MIN Total Protein 7.2 GM/DL Albumin 2.5 GM/DL Alkaline Phosphatase 138 U/L Aspartate Amino Transf (AST/SGOT) 57 U/L Alanine Aminotransferase (ALT/SGPT) 60 U/L Total Bilirubin 0.3 MG/DL Microbiology Date/Time Source Procedure Growth Status 11/05/17 18:20 Stool Stool Stool Occult Blood (TAHMINA) - Final HEMOCCULT NEGATIVE Complete 11/07/17 15:30 Bronchial Washings Left Upper Lobe Fungal Smear - Final NO FUNGAL ELEMENTS SEEN. Resulted 11/07/17 15:30 Bronchial Washings Left Upper Lobe Fungal Culture Pending Resulted 11/07/17 15:30 Bronchial Washings Left Upper Lobe Acid Fast Stain Pending Received 11/07/17 15:30 Bronchial Washings Left Upper Lobe Mycobacterial Culture Pending Received 11/07/17 15:30 Bronchial Washings Left Upper Lobe Gram Stain - Final Resulted 11/07/17 15:30 Bronchial Washings Left Upper Lobe Bronchial Culture Pending Resulted Imaging Last 72 hours Impressions Abdomen/Pelvis CT 10/27/17 0000 Signed Impressions: CONCLUSION: 1. No evidence of retroperitoneal hemorrhage. 2. Bibasilar subsegmental airspace disease and small bilateral effusions. 3. Patchy areas of hypodensity throughout the liver and spleen of uncertain et iology. Considering patient's history a septic vascular embolic process should be considered. 4. Minimal air in the urinary bladder. 5. Developing anasarca. Chest X-Ray 10/26/17599 Signed Impressions: CONCLUSION: Diffuse consolidation likely related to diffuse underlying processes such as ed aaron or diffuse inflammatory change. Last 72 hours Impressions Chest X-Ray 10/24/17599 Signed Impressions: CONCLUSION: No significant change. Bilateral pulmonary opacities remain. Head CT 10/24/17 Signed Impressions: CONCLUSION: 1. No acute intracranial abnormality. Gall Bladder Ultrasound 10/23/17 Signed Impressions: CONCLUSION: 1. There is increased echogenicity of the liver suggestive of fatty infiltrati on and/or hepatocellular disease. 2. No evidence of gallstones or biliary tract obstruction. Chest X-Ray 10/23/17 Signed Impressions: CONCLUSION: Scattered bilateral pulmonary infiltrates. Last Impressions Gall Bladder Ultrasound 10/23/17 Signed Impressions: CONCLUSION: Chest X-Ray 10/23/17 Signed Impressions: CONCLUSION: Scattered bilateral pulmonary infiltrates. Renal Ultrasound 10/19/17 Signed Impressions: Service Date/Time: Thursday, October 19, 2017 09:46 - CONCLUSION: Normal examination. Alexx Baig MD Physical Exam GENERAL: Awake and alert, NAD. SKIN: Cool and dry. No generalized rash. HEAD: Atraumatic. Normocephalic. No temporal wasting, or tenderness. EYES: [place] conjunctiva. No petechia or hemorrhage. Has dirty sclera. EARS, NOSE AND THROAT: Nose without bleeding or purulent nasal discharge. Moist mucosa NECK: Trachea midline. Supple and not tender, no meningeal signs CARDIOVASCULAR: Regular rate and rhythm. No murmurs, rubs or gallops heard RESPIRATORY: Decreased BS at bases ABDOMEN: Distended, mild tenderness, not guarding, bowel sounds present and hypoactive. EXTREMITIES: Warm, has pitting edema. Has embolic lesions tip of 3 fingers on his R hand NEUROLOGICAL: Grossly non-focal PSYCHIATRIC: Calm and cooperative LINE: No evidence of infection Assessment & Plan Remarks IMPRESSION Possible sepsis on initial presentation with fevers, dec LOC, MOSF - better - source possible lung, has aishwarya nodular infiltrates, BC negative, no sputum C/S - possibly initial source is his endocarditis - he has been on Abx sonce 10/19 Has multiple embolic lesions, source? - his BC have been negative - SHASHI with small AV vegetation Endocarditis - C/S have been negative on admission - ?Culture negative endocarditis Aishwarya pulmonary infiltrates, etiology? - ?inflammatory - last CXR now has shown significant improvement in his infiltrates DM, DKA Elevated CPK, resolved Elevated LFTs, improving Renal failure, resolved Acidosis, resolved Encephalopathy, ?metabolic, or TRAUMA [employer]OR etiology, resolved Leukocytosis, improving Anemia, stable Diarrhea, C Diff negative RECOMMENDATION Continue Rocephin Continue Vancomycin He has been on Abx sonce 10/19 Plan to give Abx until November 29 Follow bronch results (C/S, cytology and biopsy) Follow temps Monitor progress D/W Dr Goldstein (HEPAS) Haley Sanchez MD Nov 08, 2017 10:44
--- NOTE | 2017-11-08 11:11 | HHI.PR ---
Subjective Remarks Follow-up endocarditis/questionable bilateral pulmonary infiltrate November 06, 2017-patient seen and examined, patient is alert and oriented 3, currently afebrile, and denies any chest pain or shortness of breath November 07, 2017-patient seen and examined, reports of loose stool with streak of blood. Currently n.p.o. pending bronchoscopy today. November 08, 2017-patient seen and examined, patient reported improvement of shortness of breath. However now complains of right lower extremity swelling and tingling. Objective Vitals Vital Signs Date Time Temp Pulse Resp B/P (MAP) Pulse Ox O2 Delivery O2 Flow Rate FiO2 11/08/17 08:00 99.1 99 20 152/72 (98) 96 11/08/17 04:01 95 11/08/17 03:28 99.6 95 18 118/72 (87) 97 11/08/17 00:02 98 11/07/17 23:54 99.8 97 18 135/71 (92) 95 11/07/17 20:57 99.8 98 18 143/72 (95) 93 11/07/17 20:00 100 11/07/17 17:39 94 Nasal Cannula 2.00 11/07/17 16:45 92 18 137/78 (97) 94 Nasal Cannula 2 11/07/17 16:30 88 18 131/77 (95) 94 Nasal Cannula 2 11/07/17 16:15 86 18 132/76 (94) 94 Nasal Cannula 2 11/07/17 16:00 99.1 92 20 132/70 (90) 95 11/07/17 16:00 99 11/07/17 16:00 94 18 106/55 (72) 94 Nasal Cannula 2 11/07/17 15:53 97.9 99 18 111/68 (82) 97 Nasal Cannula 2 11/07/17 14:22 96 Nasal Cannula 2.00 11/07/17 12:30 98.4 92 20 134/76 (95) 95 11/07/17 12:00 Nasal Cannula 2.00 11/07/17 12:00 93 I/O 11/07/17 11/07/17 11/07/17 11/08/17 11/08/17 11/08/17 07:00 15:00 23:00 07:00 15:00 23:00 Intake Total 720 ml 10 ml 720 ml Output Total 2760 ml 1400 ml 950 ml Balance -2040 ml -1390 ml -230 ml Intake Oral 720 ml 720 ml IV Total 10 ml Output Urine Total 2760 ml 1400 ml 950 ml # Bowel Movements 1 2 1 Result Diagram: 11/08/17 0510 11/08/17 0510 Imaging Last Impressions Chest X-Ray 11/07/17 Signed Impressions: CONCLUSION: Significant improvement in aeration of the lungs. Abdomen MRI 11/03/17 Signed Impressions: CONCLUSION: 1. Nonspecific heterogeneous signal and enhancement pattern of the liver as de scribed above and not convincingly changed from the prior CT. This is not parti cularly masslike or with organized fluid. A transient phenomenon related to hep atomegaly and/or hepatocellular disease is thought most likely. Hepatic abscess es are considered unlikely. 2. Small spleen and it also has diffusely heterogeneous signal and enhancement . Acute or subacute superimposed on chronic splenic infarcts are considered mos t likely. No significant change from the CT. In addition, no particularly mass like area and also no evidence of organized fluid so splenic abscesses are cons idered less likely. Abdomen/Pelvis CT 10/27/17 0000 Signed Impressions: CONCLUSION: 1. No evidence of retroperitoneal hemorrhage. 2. Bibasilar subsegmental airspace disease and small bilateral effusions. 3. Patchy areas of hypodensity throughout the liver and spleen of uncertain et iology. Considering patient's history a septic vascular embolic process should be considered. 4. Minimal air in the urinary bladder. 5. Developing anasarca. Chest CT 10/25/17 Signed Impressions: CONCLUSION: 1. Multiple bilateral scattered interstitial and airspace infiltrates througho ut both lung yuen suggestive of some type of inflammatory process. 2. Abnormal appearance of the liver. Recommend CT scan of the abdomen with IV contrast for further evaluation. Brain MRI 10/25/17 Signed Impressions: CONCLUSION: 1. Unremarkable MRI examination of the brain. Specifically, no cerebral edema or diffusion abnormality to suggest encephalitis. Head CT 10/24/17 Signed Impressions: CONCLUSION: 1. No acute intracranial abnormality. Gall Bladder Ultrasound 10/23/17 Signed Impressions: CONCLUSION: 1. There is increased echogenicity of the liver suggestive of fatty infiltrati on and/or hepatocellular disease. 2. No evidence of gallstones or biliary tract obstruction. Renal Ultrasound 5/18/18 0000 Signed Impressions: Service Date/Time: Thursday, October 19, 2017 09:46 - CONCLUSION: Normal examination. Alexx Baig MD Objective Remarks GENERAL: NAD SKIN: Warm and dry. HEAD: Normocephalic. EYES: No scleral icterus. No injection or drainage. NECK: Supple, trachea midline. No JVD or lymphadenopathy. CARDIOVASCULAR: Regular rate and rhythm without murmurs, gallops, or rubs. RESPIRATORY: Breath sounds equal bilaterally. No accessory muscle use. GASTROINTESTINAL: Abdomen soft, non-tender, nondistended. MUSCULOSKELETAL: No cyanosis, or edema. BACK: Nontender without obvious deformity. No CVA tenderness. Date of Insertion: October 19, 2017 A/P Problem List: (1) Acute respiratory failure ICD Code: J96.00 - Acute respiratory failure, unspecified whether with hypoxia or hypercapnia (2) Acute encephalopathy ICD Code: G93.40 - Encephalopathy, unspecified Status: Acute (3) Normocytic anemia ICD Code: D64.9 - Anemia, unspecified (4) Lactic acidosis ICD Code: E87.2 - Acidosis Status: Acute (5) Hypoalbuminemia ICD Code: E88.09 - Other disorders of plasma-protein metabolism, not elsewhere classified (6) Hypophosphatemia ICD Code: E83.39 - Other disorders of phosphorus metabolism Status: Acute (7) Hypokalemia ICD Code: E87.6 - Hypokalemia Status: Acute (8) Hypermagnesemia ICD Code: E83.41 - Hypermagnesemia (9) Acute kidney injury ICD Code: N17.9 - Acute kidney failure, unspecified Status: Acute (10) Leukocytosis ICD Code: D72.829 - Elevated white blood cell count, unspecified Status: Acute (11) Hyponatremia ICD Code: E87.1 - Hypo-osmolality and hyponatremia Status: Acute (12) Hypertension ICD Code: I10 - Essential (primary) hypertension (13) Pyrexia ICD Code: R50.9 - Fever, unspecified Status: Acute (14) Depression ICD Code: F32.9 - Major depressive disorder, single episode, unspecified (15) Ketoacidosis due to secondary diabetes ICD Code: E13.10 - Other specified diabetes mellitus with ketoacidosis without coma Status: Acute (16) BMI 37.0-37.9, adult ICD Code: Z68.37 - Body mass index (BMI) 37.0-37.9, adult Status: Acute Assessment and Plan 42-year-old man with: Endocarditis, sepsis, fevers Patient has multiple embolic lesions, SHASHI shows aortic valve vegetation 0.7 x 0.8 cm Infectious disease recommends staying with Rocephin and vancomycin for now, patient will need antibiotics until November 29, 2017. Case discussed with Dr. Sanchez If fevers persist consider HACEK work up and addition of doxycycline for expanded coverage if ID agrees (for culture negative endocarditis) Appreciate infectious disease consult Appreciate cardiology workup Hypertension Continue Norvasc, Coreg,and hydralazine. Anxiety Xanax added Acute hypoxic and hypercarbic respiratory failure Bilateral pulmonary infiltrate Extubated 10/24/2017, doing well on nasal cannula oxygen Pulmonology consulted for abnormalities on imaging Status post bronchoscopy 11/07/17 pending cytology and culture report Follow-up CHEST X-RAY November 07, 2017 showed significant improvement of aeration in the lungs Upper GI bleed By patient history he vomited blood with some clots 2 weeks prior to admission Gastroenterology consulted Continue pantoprazole Acute hyperglycemic state Continue sliding-scale insulin with Accu-Cheks Continue Levemir 5 U q12h, hemoglobin A1c 13. Diabetic diet Tinea cruris Continue nystatin DVT prophylaxis Lovenox Problem Qualifiers (1) Acute respiratory failure: Qualified Codes: J96.01 - Acute respiratory failure with hypoxia; J96.02 - Acute respiratory failure with hypercapnia (2) Pyrexia: Qualified Codes: R50.9 - Fever, unspecified (3) Depression: Qualified Codes: F32.9 - Major depressive disorder, single episode, unspecified Nagi Goldstein MD Nov 08, 2017 11:11
[2017-11-08] MEDS: cefTRIAXone INJ 2,000 MG in SODIUM CHLORIDE 0.9% INJ 100 ML IV SCH (12:58)
[2017-11-08] MEDS: traMADol HCL 50 MG TAB PO PRN ×2 (12:59→21:34)
[2017-11-08 15:53] LABS: MITOCHONDRIAL ABS LESS THAN 20.0 U (<=20.0)
--- NOTE | 2017-11-08 18:29 | HHI.PR ---
Subjective Remarks 42 YOAA male with Bipolar disorder, Lung infilt, fever No Sputum Denies sob no CP Had Bronch, no mass, erythema or secretions BAL cultures neg Objective Vital Signs Vital Signs Date Time Temp Pulse Resp B/P (MAP) Pulse Ox O2 Delivery O2 Flow Rate FiO2 11/08/17 16:00 98.9 93 20 127/66 (86) 97 11/08/17 14:00 95 Nasal Cannula 2.00 11/08/17 12:00 98.6 96 21 135/63 (87) 95 11/08/17 08:00 97 11/08/17 08:00 99.1 99 20 152/72 (98) 96 11/08/17 08:00 2.00 11/08/17 04:01 95 11/08/17 03:28 99.6 95 18 118/72 (87) 97 11/08/17 00:02 98 11/07/17 23:54 99.8 97 18 135/71 (92) 95 11/07/17 20:57 99.8 98 18 143/72 (95) 93 11/07/17 20:00 100 I/O 11/07/17 11/07/17 11/07/17 11/08/17 11/08/17 11/08/17 07:00 15:00 23:00 07:00 15:00 23:00 Intake Total 720 ml 10 ml 720 ml 1700 ml Output Total 2760 ml 1400 ml 950 ml 900 ml Balance -2040 ml -1390 ml -230 ml 800 ml Intake Oral 720 ml 720 ml 1700 ml IV Total 10 ml Output Urine Total 2760 ml 1400 ml 950 ml 900 ml # Bowel Movements 1 2 1 2 Result Diagram: 11/08/17 0510 11/08/17 0510 Objective Remarks GENERAL: WBWN AA male, NAD SKIN: Warm and dry. HEAD: Normocephalic. EYES: No scleral icterus. No injection or drainage. NECK: Supple, trachea midline. No JVD or lymphadenopathy. CARDIOVASCULAR: Regular rate and rhythm without murmurs, gallops, or rubs. RESPIRATORY: Breath sounds equal bilaterally. No accessory muscle use. GASTROINTESTINAL: Abdomen soft, non-tender, nondistended. MUSCULOSKELETAL: No cyanosis, or edema. BACK: Nontender without obvious deformity. No CVA tenderness. A/P Assessment and Plan IMPRESSION: 1. Bilateral lung infiltrate with ongoing fever. He has been treated with antibiotic. Cultures have been negative. Possibility of inflammatory process of the lung or alveolitis. 2. Diabetes mellitus. 3. Renal insufficiency has improved. 4. Benign prostatic hypertrophy. 5. Bipolar disorder. PLAN: Cont Abx CXR Check BAL, Bx results DW Pt Cytology pending Han Gonsalves MD Nov 08, 2017 18:29
[2017-11-09] VITALS (13 sets, daily range): BP systolic 124–139; BP diastolic 62–84; PULSE 89–103; RESP 16–19; TEMP 98.2–99.6; O2SAT 94–98
[2017-11-09] MEDS: CHLORHEXIDINE GLUCONATE 2 % 1 PACK (2 CLOTHS) TOP SCH (03:39)
[2017-11-09] MEDS: hydrALAZINE HCL 50 MG TAB PO SCH ×3 (05:54→21:09)
[2017-11-09] MEDS: ARTIFICIAL TEARS OPTH SOLN 15 ML BTL EACH EYE SCH ×3 (05:55→21:13)
[2017-11-09 06:19] LABS: AUTOMATED NEUTROPHIL # 7.1 TH/MM3 (1.8-7.7); BASOPHIL # 0.3 TH/MM3 (0-0.2); BASOPHIL % 2.6 % (0.0-2.0); EOSINOPHIL # 0.7 TH/MM3 (0-0.4); EOSINOPHIL % 6.3 % (0.0-4.0); HEMATOCRIT 24.8 % (39.0-51.0); HEMOGLOBIN 8.2 GM/DL (13.0-17.0); LYMPH % 18.4 % (9.0-44.0); LYMPHOCYTE # 2.2 TH/MM3 (1.0-4.8); MEAN CELL VOLUME 80.4 FL (80.0-100.0); MEAN CORPUSCULAR HEMOGLOBIN 26.7 PG (27.0-34.0); MEAN CORPUSCULAR HGB CONC 33.2 % (32.0-36.0); MONOCYTE # 1.4 TH/MM3 (0-0.9); NEUT % 60.7 % (16.0-70.0); PLATELET COUNT 752 TH/MM3 (150-450); RED BLOOD COUNT 3.09 MIL/MM3 (4.50-5.90); WHITE BLOOD COUNT 11.7 TH/MM3 (4.0-11.0)
[2017-11-09] MEDS: INSULIN ASPART SUPPLEMENTAL SCALE SQ SCH ×4 (08:00→21:00)
[2017-11-09] MEDS: CHLORHEXIDINE 0.12% (ORAL KIT) 15 ML CUP MT SCH ×2 (08:00→20:00)
[2017-11-09] MEDS: CHOLESTYRAMINE 4 GM PACKET PO SCH (08:31)
[2017-11-09] MEDS: PANTOPRAZOLE SOD 40 MG DELAYED RELEASE TAB PO SCH ×2 (08:31→21:09)
[2017-11-09] MEDS: LACTOBACILLUS ACIDOPHILUS TAB PO SCH ×2 (08:31→21:10)
[2017-11-09] MEDS: traMADol HCL 50 MG TAB PO PRN ×2 (08:31→21:10)
[2017-11-09] MEDS: CARVEDILOL 6.25 MG TAB PO SCH ×2 (08:32→21:10)
[2017-11-09] MEDS: INSULIN DETEMIR 100 UNITS/ML VIAL SQ SCH ×2 (08:32→21:11)
[2017-11-09] MEDS: ENOXAPARIN SODIUM 40 MG/0.4 ML SYRINGE SQ SCH (08:32)
[2017-11-09] MEDS: SODIUM CHLORIDE 0.9% FLUSH 10 ML FLUSH IV FLUSH SCH ×2 (08:32→21:10)
[2017-11-09] MEDS: NYSTATIN 100,000 U/GM PWD 15 GM BTL TOPICAL SCH ×2 (08:34→21:14)
--- NOTE | 2017-11-09 09:23 | HHI.IDPN ---
Subjective Subjective Remarks Patient is a 42-year-old male, brought into the hospital for evaluation of multiple symptoms. He apparently has been having problem with poor p.o. intake , and thirst and increasing fluid intake. There is also mention that he has had problem with nausea and vomiting and some confusion. The symptoms have been going on for about a month. Was brought into the emergency room, and he was found to have a blood sugar of 1800, creatinine was up to 3, sodium 21, and he has multiple abnormal electrolytes. He also had acidosis, and high fevers. His white count was elevated. In the ED he became more unresponsive, and he ended up getting intubated. He was initially on pressors. He was also found to have a very elevated CPK. His electrolytes stabilized, and his acidosis improved. Creatinine improved, and he has improvement in his urine output. He had 2 blood cultures done and those are negative. He was started on empiric antibiotics for possible aspiration. Initial urinalysis was unremarkable. Patient remains on the vent. His mental status still has not improved. Neurology has been consulted. Patient's temperatures seem to have improved. His chest x-ray showing bilateral pulmonary infiltrates and some nodular infiltrates. He has been getting vancomycin, cefepime, and Flagyl. His CPKs are still elevated, and his LFTs were also elevated. Patient also during his hospitalization had episode of V. tach and was resuscitated successfully. Infectious disease consultation has been requested to evaluate patient with high fevers. Notes reviewed Temps ok Bronch C/S negative Cytology and path pending Last CXR improving CM notes reviewed - difficulty finding SNF that will take patient's insurance Qfever negative Bartonella negative SHASHI has vegetation small in AV WBC improving LFT improving HIV negative Hepatitis negative Antibiotics Rocephin Vancomycin Current Medications Medications (Trade) Dose Ordered Sig/Jacky Route Start Time Stop Time Status Last Admin (NS Flush) 2 ml UNSCH PRN IV FLUSH 10/19/17 02:30 (NS Flush) 2 ml BID IV FLUSH 10/19/17 09:00 11/09/17 08:32 (Albuterol Neb) 2.5 mg Q2HR NEB PRN INH 10/19/17 02:30 10/24/17 08:36 ([facility]) 1 Q361D XX 10/19/17 02:30 10/19/17 02:30 (Chlorhexidine 2% Cloth) 3 pack Taper DAILY@04 TOP 10/19/17 04:00 10/15/18 03:59 10/27/17 04:00 (Chlorhexidine 2% Cloth) 3 pack UNSCH PRN TOP 10/19/17 02:30 (Milk Of Magnesia Liq) 30 ml Q12H PRN PO 10/19/17 02:30 Future Hold (Senokot) 17.2 mg Q12H PRN PO 10/19/17 02:30 Future Hold (Dulcolax Supp) 10 mg DAILY PRN RECTAL 10/19/17 02:30 (Zofran Odt) 4 mg Q6H PRN PO 10/19/17 02:30 10/29/17 23:44 (Tears Naturale Opth Soln) 1 drop Q8HR EACH EYE 10/19/17 06:00 11/08/17 21:42 (Peridex 0.12% Liq) 15 ml BID@08,20 MT 10/19/17 08:00 11/07/17 20:00 (Brethine Inj) 1 mg UNSCH PRN SQ 10/19/17 07:45 (Lactulose Liq) 30 ml DAILY PRN PO 10/23/17 21:30 Future Hold (D50w (Vial) Inj) 50 ml UNSCH PRN IV PUSH 10/24/17 21:00 (Glucagon Inj) 1 mg UNSCH PRN OTHER 10/24/17 21:00 (Levemir Inj) 5 units Q12HR SQ 10/25/17 10:00 11/09/17 08:32 (Norvasc) 10 mg DAILY PO 10/26/17 09:00 11/09/17 08:31 (Lovenox Inj) 40 mg Q24H SQ 10/26/17 08:00 11/09/17 08:32 (Protonix) 40 mg Q12HR PO 10/27/17 21:00 11/09/17 08:31 (Apresoline) 50 mg Q8HR PO 10/27/17 22:00 11/09/17 05:54 (NovoLOG SUPPLEMENTAL SCALE) 1 ACHS SLIDING SCALE SQ 10/27/17 17:00 11/07/17 16:30 (Mycostatin Powder) 1 applic Q12HR TOPICAL 10/27/17 21:00 11/09/17 08:34 (Ultram) 50 mg Q8H PRN PO 10/29/17 13:15 11/09/17 08:31 Pharmacy Profile Note 0 ml @ 0 mls/hr UNSCH OTHER 10/31/17 12:00 Ceftriaxone Sodium 2000 mg/ Sodium Chloride 100 ml @ 200 mls/hr Q24H IV 10/31/17 13:00 11/08/17 12:58 (Coreg) 6.25 mg Q12HR PO 11/02/17 21:00 11/09/17 08:32 (Xanax) 0.25 mg Q6HR PRN PO 11/03/17 12:30 11/08/17 20:30 (Tylenol) 325 mg Q4H PRN PO 11/03/17 18:45 11/07/17 01:20 (Questran 4 Gm Pkt) 4 gm DAILY PO 11/05/17 09:00 11/09/17 08:31 (Librium) 50 mg TID PRN PO 11/05/17 13:15 Vancomycin HCl 1500 mg/Sodium Chloride 515 ml @ 257.5 mls/ hr Q12H IV 11/06/17 22:00 11/08/17 21:42 (Lactinex) 1 tab Q12HR PO 11/07/17 21:00 11/09/17 08:31 Patient has been on Abx since 10/19 Lines PIV no evidence of infection Past Medical History Depression/anxiety Hypertension NSAID use Allergies: Coded Allergies: No Known Allergies (Unverified Allergy, Unknown, 10/18/17) Objective . Vital Signs Date Time Temp Pulse Resp B/P (MAP) Pulse Ox O2 Delivery O2 Flow Rate FiO2 11/09/17 04:00 Nasal Cannula 2.00 11/09/17 04:00 98.9 92 16 133/62 (85) 94 11/09/17 03:46 89 11/09/17 00:00 Nasal Cannula 2.00 11/09/17 00:00 99.0 90 16 130/73 (92) 97 11/08/17 23:57 92 11/08/17 20:26 Nasal Cannula 2.00 11/08/17 20:00 99.4 95 16 127/62 (83) 97 11/08/17 19:58 Nasal Cannula 2.00 11/08/17 19:52 93 11/08/17 16:00 98.9 93 20 127/66 (86) 97 11/08/17 14:00 95 Nasal Cannula 2.00 11/08/17 12:00 98.6 96 21 135/63 (87) 95 . Laboratory Tests Test 11/08/17 05:10 11/09/17 04:51 White Blood Count 11.9 TH/MM3 11.7 TH/MM3 Red Blood Count 2.98 MIL/MM3 3.09 MIL/MM3 Hemoglobin 8.1 GM/DL 8.2 GM/DL Hematocrit 24.2 % 24.8 % Mean Corpuscular Volume 81.0 FL 80.4 FL Mean Corpuscular Hemoglobin 27.0 PG 26.7 PG Mean Corpuscular Hemoglobin Concent 33.4 % 33.2 % Red Cell Distribution Width 16.3 % 16.0 % Platelet Count 767 TH/MM3 752 TH/MM3 Mean Platelet Volume 8.1 FL 8.0 FL Neutrophils (%) (Auto) 59.3 % 60.7 % Lymphocytes (%) (Auto) 20.6 % 18.4 % Monocytes (%) (Auto) 11.7 % 12.0 % Eosinophils (%) (Auto) 6.2 % 6.3 % Basophils (%) (Auto) 2.2 % 2.6 % Neutrophils # (Auto) 7.1 TH/MM3 7.1 TH/MM3 Lymphocytes # (Auto) 2.5 TH/MM3 2.2 TH/MM3 Monocytes # (Auto) 1.4 TH/MM3 1.4 TH/MM3 Eosinophils # (Auto) 0.7 TH/MM3 0.7 TH/MM3 Basophils # (Auto) 0.3 TH/MM3 0.3 TH/MM3 CBC Comment DIFF FINAL DIFF FINAL Differential Comment Laboratory Tests Test 11/08/17 05:10 Blood Urea Nitrogen 8 MG/DL Creatinine 0.90 MG/DL Random Glucose 113 MG/DL Total Protein 7.2 GM/DL Albumin 2.5 GM/DL Calcium Level 8.6 MG/DL Alkaline Phosphatase 138 U/L Aspartate Amino Transf (AST/SGOT) 57 U/L Alanine Aminotransferase (ALT/SGPT) 60 U/L Total Bilirubin 0.3 MG/DL Sodium Level 138 MEQ/L Potassium Level 3.5 MEQ/L Chloride Level 104 MEQ/L Carbon Dioxide Level 22.9 MEQ/L Anion Gap 11 MEQ/L Estimat Glomerular Filtration Rate 113 ML/MIN Microbiology Date/Time Source Procedure Growth Status 11/07/17 15:30 Bronchial Washings Left Upper Lobe Fungal Smear - Final NO FUNGAL ELEMENTS SEEN. Resulted 11/07/17 15:30 Bronchial Washings Left Upper Lobe Fungal Culture Pending Resulted 11/07/17 15:30 Bronchial Washings Left Upper Lobe Acid Fast Stain Pending Received 11/07/17 15:30 Bronchial Washings Left Upper Lobe Mycobacterial Culture Pending Received 11/07/17 15:30 Bronchial Washings Left Upper Lobe Gram Stain - Final Resulted 11/07/17 15:30 Bronchial Washings Left Upper Lobe Bronchial Culture - Preliminary NO GROWTH IN 24 HOURS. Resulted Imaging Last 72 hours Impressions Abdomen/Pelvis CT 10/27/17 Signed Impressions: CONCLUSION: 1. No evidence of retroperitoneal hemorrhage. 2. Bibasilar subsegmental airspace disease and small bilateral effusions. 3. Patchy areas of hypodensity throughout the liver and spleen of uncertain et iology. Considering patient's history a septic vascular embolic process should be considered. 4. Minimal air in the urinary bladder. 5. Developing anasarca. Chest X-Ray 10/26/17599 Signed Impressions: CONCLUSION: Diffuse consolidation likely related to diffuse underlying processes such as ed aaron or diffuse inflammatory change. Last 72 hours Impressions Chest X-Ray 10/24/17599 Signed Impressions: CONCLUSION: No significant change. Bilateral pulmonary opacities remain. Head CT 10/24/17 Signed Impressions: CONCLUSION: 1. No acute intracranial abnormality. Gall Bladder Ultrasound 10/23/17 Signed Impressions: CONCLUSION: 1. There is increased echogenicity of the liver suggestive of fatty infiltrati on and/or hepatocellular disease. 2. No evidence of gallstones or biliary tract obstruction. Chest X-Ray 10/23/17 Signed Impressions: CONCLUSION: Scattered bilateral pulmonary infiltrates. Last Impressions Gall Bladder Ultrasound 10/23/17 Signed Impressions: CONCLUSION: Chest X-Ray 10/23/17 Signed Impressions: CONCLUSION: Scattered bilateral pulmonary infiltrates. Renal Ultrasound 10/19/17 Signed Impressions: Service Date/Time: Thursday, October 19, 2017 09:46 - CONCLUSION: Normal examination. Alexx Baig MD Physical Exam GENERAL: Awakens easily, alert, NAD. SKIN: Cool and dry. No generalized rash. HEAD: Atraumatic. Normocephalic. No temporal wasting, or tenderness. EYES: [place] conjunctiva. No petechia or hemorrhage. Has dirty sclera. EARS, NOSE AND THROAT: Nose without bleeding or purulent nasal discharge. Moist mucosa NECK: Trachea midline. Supple and not tender, no meningeal signs CARDIOVASCULAR: Regular rate and rhythm. No murmurs, rubs or gallops heard RESPIRATORY: Decreased BS at bases ABDOMEN: Distended, mild tenderness, not guarding, bowel sounds present and hypoactive. EXTREMITIES: Warm, has pitting edema. Has embolic lesions tip of 3 fingers on his R hand NEUROLOGICAL: Grossly non-focal PSYCHIATRIC: Calm and cooperative LINE: No evidence of infection Assessment & Plan Remarks IMPRESSION Possible sepsis on initial presentation with fevers, dec LOC, MOSF - better - source possible lung, has aishwarya nodular infiltrates, BC negative, no sputum C/S - possibly initial source is his endocarditis - he has been on Abx sonce 10/19 Has multiple embolic lesions, source? IE - his BC have been negative - SHASHI with small AV vegetation Endocarditis - C/S have been negative on admission - ?Culture negative endocarditis Aishwarya pulmonary infiltrates, etiology? - ?inflammatory - last CXR now has shown significant improvement in his infiltrates DM, DKA Elevated CPK, resolved Elevated LFTs, improving Renal failure, resolved Acidosis, resolved Encephalopathy, ?metabolic, or [employer] etiology, resolved Leukocytosis, improving Anemia, stable Diarrhea, C Diff negative RECOMMENDATION Continue Rocephin Continue Vancomycin He has been on Abx sonce 10/19 Plan to give Abx until November 29 Follow bronch results (C/S, cytology and biopsy) Follow temps PICC Monitor progress SNF placement Haley Sanchez MD Nov 09, 2017 09:23
[2017-11-09] MEDS: VANCOMYCIN 1,500 MG/NS 500 ML IV SCH ×4 (10:13→21:12)
--- NOTE | 2017-11-09 11:11 | HHI.PR ---
Subjective Remarks Follow-up endocarditis/questionable bilateral pulmonary infiltrate November 06, 2017-patient seen and examined, patient is alert and oriented 3, currently afebrile, and denies any chest pain or shortness of breath November 07, 2017-patient seen and examined, reports of loose stool with streak of blood. Currently n.p.o. pending bronchoscopy today. November 08, 2017-patient seen and examined, patient reported improvement of shortness of breath. However now complains of right lower extremity swelling and tingling. November 09, 2017-patient seen and examined still complaining of right lower extremity pain. Denies any chest pain or shortness of breath. Currently afebrile. Objective Vitals Vital Signs Date Time Temp Pulse Resp B/P (MAP) Pulse Ox O2 Delivery O2 Flow Rate FiO2 11/09/17 08:00 91 11/09/17 08:00 99.6 98 18 125/84 (98) 97 11/09/17 07:46 Nasal Cannula 2.00 11/09/17 04:00 Nasal Cannula 2.00 11/09/17 04:00 98.9 92 16 133/62 (85) 94 11/09/17 03:46 89 11/09/17 00:00 Nasal Cannula 2.00 11/09/17 00:00 99.0 90 16 130/73 (92) 97 11/08/17 23:57 92 11/08/17 20:26 Nasal Cannula 2.00 11/08/17 20:00 99.4 95 16 127/62 (83) 97 11/08/17 19:58 Nasal Cannula 2.00 11/08/17 19:52 93 11/08/17 16:00 98.9 93 20 127/66 (86) 97 11/08/17 14:00 95 Nasal Cannula 2.00 11/08/17 12:00 98.6 96 21 135/63 (87) 95 I/O 11/08/17 11/08/17 11/08/17 11/09/17 11/09/17 11/09/17 07:00 15:00 23:00 07:00 15:00 23:00 Intake Total 720 ml 1700 ml 1820 ml Output Total 950 ml 900 ml 3200 ml Balance -230 ml 800 ml -1380 ml Intake Oral 720 ml 1700 ml 1820 ml Output Urine Total 950 ml 900 ml 3200 ml # Bowel Movements 1 2 Result Diagram: 11/09/17 0451 11/08/17 0510 Objective Remarks GENERAL: NAD SKIN: Warm and dry. HEAD: Normocephalic. EYES: No scleral icterus. No injection or drainage. NECK: Supple, trachea midline. No JVD or lymphadenopathy. CARDIOVASCULAR: Regular rate and rhythm without murmurs, gallops, or rubs. RESPIRATORY: Breath sounds equal bilaterally. No accessory muscle use. GASTROINTESTINAL: Abdomen soft, non-tender, nondistended. MUSCULOSKELETAL: No cyanosis, or edema. BACK: Nontender without obvious deformity. No CVA tenderness. Date of Insertion: October 19, 2017 A/P Problem List: (1) Acute respiratory failure ICD Code: J96.00 - Acute respiratory failure, unspecified whether with hypoxia or hypercapnia (2) Acute encephalopathy ICD Code: G93.40 - Encephalopathy, unspecified Status: Acute (3) Normocytic anemia ICD Code: D64.9 - Anemia, unspecified (4) Lactic acidosis ICD Code: E87.2 - Acidosis Status: Acute (5) Hypoalbuminemia ICD Code: E88.09 - Other disorders of plasma-protein metabolism, not elsewhere classified (6) Hypophosphatemia ICD Code: E83.39 - Other disorders of phosphorus metabolism Status: Acute (7) Hypokalemia ICD Code: E87.6 - Hypokalemia Status: Acute (8) Hypermagnesemia ICD Code: E83.41 - Hypermagnesemia (9) Acute kidney injury ICD Code: N17.9 - Acute kidney failure, unspecified Status: Acute (10) Leukocytosis ICD Code: D72.829 - Elevated white blood cell count, unspecified Status: Acute (11) Hyponatremia ICD Code: E87.1 - Hypo-osmolality and hyponatremia Status: Acute (12) Hypertension ICD Code: I10 - Essential (primary) hypertension (13) Pyrexia ICD Code: R50.9 - Fever, unspecified Status: Acute (14) Depression ICD Code: F32.9 - Major depressive disorder, single episode, unspecified (15) Ketoacidosis due to secondary diabetes ICD Code: E13.10 - Other specified diabetes mellitus with ketoacidosis without coma Status: Acute (16) BMI 37.0-37.9, adult ICD Code: Z68.37 - Body mass index (BMI) 37.0-37.9, adult Status: Acute Assessment and Plan 42-year-old man with: Endocarditis, sepsis, fevers Patient has multiple embolic lesions, SHASHI shows aortic valve vegetation 0.7 x 0.8 cm Infectious disease recommends staying with Rocephin and vancomycin for now, patient will need antibiotics until November 29, 2017. Appreciate infectious disease consult Appreciate cardiology workup Hypertension Continue Norvasc, Coreg,and hydralazine. Anxiety Continue Xanax Acute hypoxic and hypercarbic respiratory failure Bilateral pulmonary infiltrate Extubated 10/24/2017, doing well on nasal cannula oxygen Pulmonology consulted for abnormalities on imaging Status post bronchoscopy 11/07/17 pending cytology and culture report Follow-up CHEST X-RAY November 07, 2017 showed significant improvement of aeration in the lungs Upper GI bleed By patient history he vomited blood with some clots 2 weeks prior to admission Gastroenterology consulted Continue pantoprazole Right lower extremity pain Check Doppler to rule out DVT Acute hyperglycemic state Continue sliding-scale insulin with Accu-Cheks Continue Levemir 5 U q12h, hemoglobin A1c 13. Diabetic diet Tinea cruris Continue nystatin DVT prophylaxis Lovenox Problem Qualifiers (1) Acute respiratory failure: Qualified Codes: J96.01 - Acute respiratory failure with hypoxia; J96.02 - Acute respiratory failure with hypercapnia (2) Pyrexia: Qualified Codes: R50.9 - Fever, unspecified (3) Depression: Qualified Codes: F32.9 - Major depressive disorder, single episode, unspecified Nagi Goldstein MD Nov 09, 2017 11:11
--- NOTE | 2017-11-09 11:28 | HHI.PR ---
Subjective Remarks 42 YOAA male with Bipolar disorder, Lung infilt, fever No Sputum Denies sob no CP Had Bronch, no mass, erythema or secretions BAL cultures neg Cytology, bx pending CXR much improved Objective Vital Signs Vital Signs Date Time Temp Pulse Resp B/P (MAP) Pulse Ox O2 Delivery O2 Flow Rate FiO2 11/09/17 08:00 91 11/09/17 08:00 99.6 98 18 125/84 (98) 97 11/09/17 07:46 Nasal Cannula 2.00 11/09/17 04:00 Nasal Cannula 2.00 11/09/17 04:00 98.9 92 16 133/62 (85) 94 11/09/17 03:46 89 11/09/17 00:00 Nasal Cannula 2.00 11/09/17 00:00 99.0 90 16 130/73 (92) 97 11/08/17 23:57 92 11/08/17 20:26 Nasal Cannula 2.00 11/08/17 20:00 99.4 95 16 127/62 (83) 97 11/08/17 19:58 Nasal Cannula 2.00 11/08/17 19:52 93 11/08/17 16:00 98.9 93 20 127/66 (86) 97 11/08/17 14:00 95 Nasal Cannula 2.00 11/08/17 12:00 98.6 96 21 135/63 (87) 95 I/O 11/08/17 11/08/17 11/08/17 11/09/17 11/09/17 11/09/17 07:00 15:00 23:00 07:00 15:00 23:00 Intake Total 720 ml 1700 ml 1820 ml Output Total 950 ml 900 ml 3200 ml Balance -230 ml 800 ml -1380 ml Intake Oral 720 ml 1700 ml 1820 ml Output Urine Total 950 ml 900 ml 3200 ml # Bowel Movements 1 2 Result Diagram: 11/09/17 0451 11/08/17 0510 Objective Remarks GENERAL: WBWN AA male, NAD SKIN: Warm and dry. HEAD: Normocephalic. EYES: No scleral icterus. No injection or drainage. NECK: Supple, trachea midline. No JVD or lymphadenopathy. CARDIOVASCULAR: Regular rate and rhythm without murmurs, gallops, or rubs. RESPIRATORY: Breath sounds equal bilaterally. No accessory muscle use. GASTROINTESTINAL: Abdomen soft, non-tender, nondistended. MUSCULOSKELETAL: No cyanosis, or edema. BACK: Nontender without obvious deformity. No CVA tenderness. A/P Assessment and Plan IMPRESSION: 1. Bilateral lung infiltrate with ongoing fever. He has been treated with antibiotic. Cultures have been negative. Possibility of inflammatory process of the lung or alveolitis. 2. Diabetes mellitus. 3. Renal insufficiency has improved. 4. Benign prostatic hypertrophy. 5. Bipolar disorder. PLAN: Cont Abx per ID Check BAL, Bx results DW Pt Wean 02 Han Gonsalves MD Nov 09, 2017 11:28
--- NOTE | 2017-11-09 12:02 | RADRPT ---
EXAM DATE: 11/09/2017 11:48 AM EDT AGE/SEX: 42 years / Male INDICATIONS: Right leg pain. CLINICAL DATA: This is the patient's initial encounter. Patient reports that signs and symptoms have been present for 3 days and indicates a pain score of 3/10. MEDICAL/SURGICAL HISTORY: Hypertension. Confusion. Syncope. Dyspnea. Bipolar disorder. Depressi on. Coronary artery disease. None. COMPARISON: No prior exams available for comparison. TECHNIQUE: Venous ultrasound of both lower extremities was performed from the inguinal ligament to t he proximal calf. Real-time, color Doppler and spectral tracing, compression and augmentation techni ques were used. FINDINGS: There are abnormal intraluminal echoes within the common femoral vein with incomplete compression. Bl ood flow remains present indicating nonocclusive thrombus. The remaining veins of the right lower ext remity are patent. CONCLUSION: 1. There is nonocclusive thrombus within the right common femoral vein. 2. The remaining veins of the right lower extremity are patent. Electronically signed by: Lucio Bonilla MD 11/09/2017 12:00 PM EDT
[2017-11-09] MEDS: ALPRAZolam 0.25 MG TAB PO PRN ×2 (12:45→21:09)
[2017-11-09] MEDS: cefTRIAXone INJ 2,000 MG in SODIUM CHLORIDE 0.9% INJ 100 ML IV SCH (13:20)
[2017-11-10] VITALS (13 sets, daily range): BP systolic 126–146; BP diastolic 64–90; PULSE 65–101; RESP 16–20; TEMP 98.8–100.2; O2SAT 94–98
[2017-11-10] MEDS: CHLORHEXIDINE GLUCONATE 2 % 1 PACK (2 CLOTHS) TOP SCH (04:00)
[2017-11-10] MEDS: ALPRAZolam 0.25 MG TAB PO PRN ×2 (05:32→21:08)
[2017-11-10] MEDS: hydrALAZINE HCL 50 MG TAB PO SCH ×3 (05:32→21:08)
[2017-11-10] MEDS: traMADol HCL 50 MG TAB PO PRN ×2 (05:32→13:35)
[2017-11-10] MEDS: ARTIFICIAL TEARS OPTH SOLN 15 ML BTL EACH EYE SCH ×3 (05:33→21:08)
[2017-11-10] MEDS: INSULIN ASPART SUPPLEMENTAL SCALE SQ SCH ×4 (08:00→21:08)
[2017-11-10] MEDS: CHLORHEXIDINE 0.12% (ORAL KIT) 15 ML CUP MT SCH ×2 (08:00→20:00)
[2017-11-10 08:24] LABS: CREATININE 0.8 MG/DL (0.60-1.30)
[2017-11-10] MEDS: NYSTATIN 100,000 U/GM PWD 15 GM BTL TOPICAL SCH ×2 (09:00→21:08)
[2017-11-10] MEDS: PANTOPRAZOLE SOD 40 MG DELAYED RELEASE TAB PO SCH ×2 (11:03→21:08)
[2017-11-10] MEDS: CARVEDILOL 6.25 MG TAB PO SCH ×2 (11:04→21:08)
[2017-11-10] MEDS: SODIUM CHLORIDE 0.9% FLUSH 10 ML FLUSH IV FLUSH SCH ×2 (11:04→21:00)
[2017-11-10] MEDS: LACTOBACILLUS ACIDOPHILUS TAB PO SCH ×2 (11:04→21:08)
[2017-11-10] MEDS: ENOXAPARIN SODIUM 40 MG/0.4 ML SYRINGE SQ SCH (11:04)
[2017-11-10] MEDS: VANCOMYCIN 1,500 MG/NS 500 ML IV SCH ×4 (11:05→21:07)
[2017-11-10] MEDS: INSULIN DETEMIR 100 UNITS/ML VIAL SQ SCH ×2 (11:05→21:10)
[2017-11-10] MEDS: CHOLESTYRAMINE 4 GM PACKET PO SCH (11:05)
--- NOTE | 2017-11-10 12:05 | HHI.PR ---
Subjective Remarks Follow-up endocarditis/questionable bilateral pulmonary infiltrate November 06, 2017-patient seen and examined, patient is alert and oriented 3, currently afebrile, and denies any chest pain or shortness of breath November 07, 2017-patient seen and examined, reports of loose stool with streak of blood. Currently n.p.o. pending bronchoscopy today. November 08, 2017-patient seen and examined, patient reported improvement of shortness of breath. However now complains of right lower extremity swelling and tingling. November 09, 2017-patient seen and examined still complaining of right lower extremity pain. Denies any chest pain or shortness of breath. Currently afebrile. November 10, 2017-patient seen and examined, no acute event overnight; however reports some bloody stools. doppler + for nonocclusive thrombus Objective Vitals Vital Signs Date Time Temp Pulse Resp B/P (MAP) Pulse Ox O2 Delivery O2 Flow Rate FiO2 11/10/17 10:03 95 Nasal Cannula 2.00 11/10/17 08:00 99.3 99 20 145/69 (94) 95 11/10/17 04:00 95 Room Air 11/10/17 04:00 100.1 95 16 146/90 (108) 94 11/10/17 03:42 90 11/10/17 00:00 100.2 92 16 142/74 (96) 98 11/09/17 23:56 91 11/09/17 20:00 Nasal Cannula 2.00 11/09/17 20:00 99.3 94 16 124/69 (87) 98 11/09/17 19:46 92 11/09/17 17:51 94 Nasal Cannula 2.00 11/09/17 16:00 98.5 95 18 139/68 (91) 94 11/09/17 15:59 103 11/09/17 13:44 97 Nasal Cannula 2.00 11/09/17 12:00 98.2 98 19 133/69 (90) 96 I/O 11/09/17 11/09/17 11/09/17 11/10/17 11/10/17 11/10/17 06:59 14:59 22:59 06:59 14:59 22:59 Intake Total 2335 ml 615 ml 1500 ml 1315 ml Output Total 3200 ml 1125 ml 3350 ml Balance -865 ml 615 ml 375 ml -2035 ml Intake Oral 1820 ml 1500 ml 800 ml IV Total 515 ml 615 ml 515 ml Output Urine Total 3200 ml 1125 ml 3350 ml # Bowel Movements 2 Result Diagram: 11/09/17 0451 11/10/17 0710 Imaging Last Impressions Lower Extremity Ultrasound 11/09/17 Signed Impressions: CONCLUSION: 1. There is nonocclusive thrombus within the right common femoral vein. 2. The remaining veins of the right lower extremity are patent. Chest X-Ray 11/07/17 Signed Impressions: CONCLUSION: Significant improvement in aeration of the lungs. Abdomen MRI 11/03/17 Signed Impressions: CONCLUSION: 1. Nonspecific heterogeneous signal and enhancement pattern of the liver as de scribed above and not convincingly changed from the prior CT. This is not parti cularly masslike or with organized fluid. A transient phenomenon related to hep atomegaly and/or hepatocellular disease is thought most likely. Hepatic abscess es are considered unlikely. 2. Small spleen and it also has diffusely heterogeneous signal and enhancement . Acute or subacute superimposed on chronic splenic infarcts are considered mos t likely. No significant change from the CT. In addition, no particularly mass like area and also no evidence of organized fluid so splenic abscesses are cons idered less likely. Abdomen/Pelvis CT 10/27/17 Signed Impressions: CONCLUSION: 1. No evidence of retroperitoneal hemorrhage. 2. Bibasilar subsegmental airspace disease and small bilateral effusions. 3. Patchy areas of hypodensity throughout the liver and spleen of uncertain et iology. Considering patient's history a septic vascular embolic process should be considered. 4. Minimal air in the urinary bladder. 5. Developing anasarca. Chest CT 10/25/17 Signed Impressions: CONCLUSION: 1. Multiple bilateral scattered interstitial and airspace infiltrates througho ut both lung yuen suggestive of some type of inflammatory process. 2. Abnormal appearance of the liver. Recommend CT scan of the abdomen with IV contrast for further evaluation. Brain MRI 10/25/17 Signed Impressions: CONCLUSION: 1. Unremarkable MRI examination of the brain. Specifically, no cerebral edema or diffusion abnormality to suggest encephalitis. Head CT 10/24/17 Signed Impressions: CONCLUSION: 1. No acute intracranial abnormality. Gall Bladder Ultrasound 10/23/17 Signed Impressions: CONCLUSION: 1. There is increased echogenicity of the liver suggestive of fatty infiltrati on and/or hepatocellular disease. 2. No evidence of gallstones or biliary tract obstruction. Renal Ultrasound 10/19/17 0000 Signed Impressions: Service Date/Time: Thursday, October 19, 2017 09:46 - CONCLUSION: Normal examination. Alexx Baig MD Objective Remarks GENERAL: NAD SKIN: Warm and dry. HEAD: Normocephalic. EYES: No scleral icterus. No injection or drainage. NECK: Supple, trachea midline. No JVD or lymphadenopathy. CARDIOVASCULAR: Regular rate and rhythm without murmurs, gallops, or rubs. RESPIRATORY: Breath sounds equal bilaterally. No accessory muscle use. GASTROINTESTINAL: Abdomen soft, non-tender, nondistended. MUSCULOSKELETAL: No cyanosis, or edema. BACK: Nontender without obvious deformity. No CVA tenderness. Date of Insertion: October 19, 2017 A/P Problem List: (1) Acute respiratory failure ICD Code: J96.00 - Acute respiratory failure, unspecified whether with hypoxia or hypercapnia (2) Acute encephalopathy ICD Code: G93.40 - Encephalopathy, unspecified Status: Acute (3) Normocytic anemia ICD Code: D64.9 - Anemia, unspecified (4) Lactic acidosis ICD Code: E87.2 - Acidosis Status: Acute (5) Hypoalbuminemia ICD Code: E88.09 - Other disorders of plasma-protein metabolism, not elsewhere classified (6) Hypophosphatemia ICD Code: E83.39 - Other disorders of phosphorus metabolism Status: Acute (7) Hypokalemia ICD Code: E87.6 - Hypokalemia Status: Acute (8) Hypermagnesemia ICD Code: E83.41 - Hypermagnesemia (9) Acute kidney injury ICD Code: N17.9 - Acute kidney failure, unspecified Status: Acute (10) Leukocytosis ICD Code: D72.829 - Elevated white blood cell count, unspecified Status: Acute (11) Hyponatremia ICD Code: E87.1 - Hypo-osmolality and hyponatremia Status: Acute (12) Hypertension ICD Code: I10 - Essential (primary) hypertension (13) Pyrexia ICD Code: R50.9 - Fever, unspecified Status: Acute (14) Depression ICD Code: F32.9 - Major depressive disorder, single episode, unspecified (15) Ketoacidosis due to secondary diabetes ICD Code: E13.10 - Other specified diabetes mellitus with ketoacidosis without coma Status: Acute (16) BMI 37.0-37.9, adult ICD Code: Z68.37 - Body mass index (BMI) 37.0-37.9, adult Status: Acute Assessment and Plan 42-year-old man with: Endocarditis, sepsis, fevers Patient has multiple embolic lesions, SHASHI shows aortic valve vegetation 0.7 x 0.8 cm Infectious disease recommends staying with Rocephin and vancomycin for now, patient will need antibiotics until November 29, 2017. Appreciate infectious disease consult Appreciate cardiology workup Hypertension Continue Norvasc, Coreg,and hydralazine. Anxiety Continue Xanax Acute hypoxic and hypercarbic respiratory failure Bilateral pulmonary infiltrate Extubated 10/24/2017, doing well on nasal cannula oxygen Pulmonology consulted for abnormalities on imaging Status post bronchoscopy 11/07/17 pending cytology and culture report Follow-up CHEST X-RAY November 07, 2017 showed significant improvement of aeration in the lungs Upper GI bleed Gastroenterology signed off Continue pantoprazole Right lower extremity pain Nonocclusive thrombus Doppler + DVT Acute hyperglycemic state Continue sliding-scale insulin with Accu-Cheks Continue Levemir 5 U q12h, hemoglobin A1c 13. Diabetic diet Tinea cruris Continue nystatin DVT prophylaxis Lovenox Problem Qualifiers (1) Acute respiratory failure: Qualified Codes: J96.01 - Acute respiratory failure with hypoxia; J96.02 - Acute respiratory failure with hypercapnia (2) Pyrexia: Qualified Codes: R50.9 - Fever, unspecified (3) Depression: Qualified Codes: F32.9 - Major depressive disorder, single episode, unspecified Nagi Goldstein MD Nov 10, 2017 12:05
[2017-11-10] MEDS: cefTRIAXone INJ 2,000 MG in SODIUM CHLORIDE 0.9% INJ 100 ML IV SCH (13:35)
[2017-11-10] MEDS ORDERED: SODIUM CHLORIDE 0.9% FLUSH 10 ML FLUSH IV FLUSH PRN (18:00)
[2017-11-11] VITALS (14 sets, daily range): BP systolic 116–144; BP diastolic 66–78; PULSE 92–103; RESP 16–18; TEMP 99–100.3; O2SAT 93–98
[2017-11-11] MEDS: CHLORHEXIDINE GLUCONATE 2 % 1 PACK (2 CLOTHS) TOP SCH (03:29)
[2017-11-11] MEDS: ARTIFICIAL TEARS OPTH SOLN 15 ML BTL EACH EYE SCH ×3 (05:43→21:31)
[2017-11-11] MEDS: ALPRAZolam 0.25 MG TAB PO PRN ×2 (05:57→21:29)
[2017-11-11] MEDS: traMADol HCL 50 MG TAB PO PRN ×2 (05:57→18:52)
[2017-11-11] MEDS: hydrALAZINE HCL 50 MG TAB PO SCH ×3 (05:57→21:29)
[2017-11-11] MEDS: INSULIN ASPART SUPPLEMENTAL SCALE SQ SCH ×4 (07:56→21:31)
[2017-11-11] MEDS: CHLORHEXIDINE 0.12% (ORAL KIT) 15 ML CUP MT SCH ×2 (07:57→20:00)
[2017-11-11] MEDS: ENOXAPARIN SODIUM 40 MG/0.4 ML SYRINGE SQ SCH (09:59)
[2017-11-11] MEDS: CHOLESTYRAMINE 4 GM PACKET PO SCH (09:59)
[2017-11-11] MEDS: LACTOBACILLUS ACIDOPHILUS TAB PO SCH ×2 (10:00→21:29)
[2017-11-11] MEDS: CARVEDILOL 6.25 MG TAB PO SCH ×2 (10:00→21:29)
[2017-11-11] MEDS: SODIUM CHLORIDE 0.9% FLUSH 10 ML FLUSH IV FLUSH SCH ×3 (10:00→21:29)
[2017-11-11] MEDS: PANTOPRAZOLE SOD 40 MG DELAYED RELEASE TAB PO SCH ×2 (10:01→21:29)
[2017-11-11] MEDS: INSULIN DETEMIR 100 UNITS/ML VIAL SQ SCH ×2 (10:01→21:00)
[2017-11-11] MEDS: NYSTATIN 100,000 U/GM PWD 15 GM BTL TOPICAL SCH ×2 (10:02→21:00)
[2017-11-11] MEDS: VANCOMYCIN 1,500 MG/NS 500 ML IV SCH ×4 (10:02→21:32)
--- NOTE | 2017-11-11 12:04 | HHI.PR ---
Subjective Remarks Follow-up endocarditis/questionable bilateral pulmonary infiltrate November 06, 2017-patient seen and examined, patient is alert and oriented 3, currently afebrile, and denies any chest pain or shortness of breath November 07, 2017-patient seen and examined, reports of loose stool with streak of blood. Currently n.p.o. pending bronchoscopy today. November 08, 2017-patient seen and examined, patient reported improvement of shortness of breath. However now complains of right lower extremity swelling and tingling. November 09, 2017-patient seen and examined still complaining of right lower extremity pain. Denies any chest pain or shortness of breath. Currently afebrile. November 10, 2017-patient seen and examined, no acute event overnight; however reports some bloody stools. doppler + for nonocclusive thrombus November 11, 2017-patient seen and examined, still spiking fevers at night, no other issues Objective Vitals Vital Signs Date Time Temp Pulse Resp B/P (MAP) Pulse Ox O2 Delivery O2 Flow Rate FiO2 11/11/17 08:35 93 21 11/11/17 08:00 99.2 102 18 124/67 (86) 95 11/11/17 08:00 Nasal Cannula 2.00 11/11/17 06:57 18 11/11/17 04:00 99.5 94 16 138/78 (98) 98 11/11/17 03:58 97 11/11/17 00:36 95 11/11/17 00:00 100.3 96 16 124/66 (85) 97 11/11/17 00:00 100.3 96 16 11/10/17 20:00 99.9 101 16 126/64 (84) 97 11/10/17 19:58 95 11/10/17 17:46 97 Nasal Cannula 2.00 11/10/17 16:37 99.3 93 20 140/66 (90) 97 11/10/17 16:13 91 11/10/17 12:15 98.8 91 20 135/65 (88) 97 I/O 11/10/17 11/10/17 11/10/17 11/11/17 11/11/17 11/11/17 07:00 15:00 23:00 07:00 15:00 23:00 Intake Total 1315 ml 960 ml 515 ml 1500 ml Output Total 3350 ml 2525 ml 3250 ml Balance -2035 ml -1565 ml 515 ml -1750 ml Intake Oral 800 ml 960 ml 1500 ml IV Total 515 ml 515 ml Output Urine Total 3350 ml 2525 ml 3250 ml # Bowel Movements 1 Result Diagram: 11/09/17 0451 11/10/17 0710 Objective Remarks GENERAL: NAD SKIN: Warm and dry. HEAD: Normocephalic. EYES: No scleral icterus. No injection or drainage. NECK: Supple, trachea midline. No JVD or lymphadenopathy. CARDIOVASCULAR: Regular rate and rhythm without murmurs, gallops, or rubs. RESPIRATORY: Breath sounds equal bilaterally. No accessory muscle use. GASTROINTESTINAL: Abdomen soft, non-tender, nondistended. MUSCULOSKELETAL: No cyanosis, or edema. BACK: Nontender without obvious deformity. No CVA tenderness. Date of Insertion: October 19, 2017 A/P Problem List: (1) Acute respiratory failure ICD Code: J96.00 - Acute respiratory failure, unspecified whether with hypoxia or hypercapnia (2) Acute encephalopathy ICD Code: G93.40 - Encephalopathy, unspecified Status: Acute (3) Normocytic anemia ICD Code: D64.9 - Anemia, unspecified (4) Lactic acidosis ICD Code: E87.2 - Acidosis Status: Acute (5) Hypoalbuminemia ICD Code: E88.09 - Other disorders of plasma-protein metabolism, not elsewhere classified (6) Hypophosphatemia ICD Code: E83.39 - Other disorders of phosphorus metabolism Status: Acute (7) Hypokalemia ICD Code: E87.6 - Hypokalemia Status: Acute (8) Hypermagnesemia ICD Code: E83.41 - Hypermagnesemia (9) Acute kidney injury ICD Code: N17.9 - Acute kidney failure, unspecified Status: Acute (10) Leukocytosis ICD Code: D72.829 - Elevated white blood cell count, unspecified Status: Acute (11) Hyponatremia ICD Code: E87.1 - Hypo-osmolality and hyponatremia Status: Acute (12) Hypertension ICD Code: I10 - Essential (primary) hypertension (13) Pyrexia ICD Code: R50.9 - Fever, unspecified Status: Acute (14) Depression ICD Code: F32.9 - Major depressive disorder, single episode, unspecified (15) Ketoacidosis due to secondary diabetes ICD Code: E13.10 - Other specified diabetes mellitus with ketoacidosis without coma Status: Acute (16) BMI 37.0-37.9, adult ICD Code: Z68.37 - Body mass index (BMI) 37.0-37.9, adult Status: Acute Assessment and Plan 42-year-old man with: Endocarditis, sepsis, fevers Patient has multiple embolic lesions, SHASHI shows aortic valve vegetation 0.7 x 0.8 cm Infectious disease recommends staying with Rocephin and vancomycin for now, patient will need antibiotics until possible November 29, 2017. Appreciate infectious disease consult Appreciate cardiology workup Hypertension Continue Norvasc, Coreg,and hydralazine. Anxiety Continue Xanax Acute hypoxic and hypercarbic respiratory failure Bilateral pulmonary infiltrate Extubated 10/24/2017, doing well on nasal cannula oxygen Pulmonology consulted for abnormalities on imaging Status post bronchoscopy 11/07/17 pending cytology and culture report Follow-up CHEST X-RAY November 07, 2017 showed significant improvement of aeration in the lungs Upper GI bleed Gastroenterology signed off Continue pantoprazole Right lower extremity pain Nonocclusive thrombus and currently on 40 subcu of Lovenox daily, discharge home on Eliquis when ready to leave the hospital Doppler + DVT Acute hyperglycemic state Continue sliding-scale insulin with Accu-Cheks Continue Levemir 5 U q12h, hemoglobin A1c 13. Diabetic diet Tinea cruris Continue nystatin DVT prophylaxis Lovenox Problem Qualifiers (1) Acute respiratory failure: Qualified Codes: J96.01 - Acute respiratory failure with hypoxia; J96.02 - Acute respiratory failure with hypercapnia (2) Pyrexia: Qualified Codes: R50.9 - Fever, unspecified (3) Depression: Qualified Codes: F32.9 - Major depressive disorder, single episode, unspecified Nagi Goldstein MD Nov 11, 2017 12:04
[2017-11-11] MEDS: cefTRIAXone INJ 2,000 MG in SODIUM CHLORIDE 0.9% INJ 100 ML IV SCH (13:33)
[2017-11-12] VITALS (11 sets, daily range): BP systolic 120–142; BP diastolic 66–78; PULSE 78–99; RESP 16–19; TEMP 98–100.1; O2SAT 93–97
[2017-11-12] MEDS: CHLORHEXIDINE GLUCONATE 2 % 1 PACK (2 CLOTHS) TOP SCH (03:06)
[2017-11-12] MEDS: traMADol HCL 50 MG TAB PO PRN ×2 (05:20→21:33)
[2017-11-12] MEDS: ACETAMINOPHEN 325 MG TAB PO PRN (05:21)
[2017-11-12] MEDS: ALPRAZolam 0.25 MG TAB PO PRN ×2 (05:21→21:33)
[2017-11-12] MEDS: hydrALAZINE HCL 50 MG TAB PO SCH ×3 (05:21→21:33)
[2017-11-12] MEDS: ARTIFICIAL TEARS OPTH SOLN 15 ML BTL EACH EYE SCH ×3 (05:22→21:35)
[2017-11-12 06:27] LABS: CREATININE 0.86 MG/DL (0.60-1.30)
[2017-11-12] MEDS: CHLORHEXIDINE 0.12% (ORAL KIT) 15 ML CUP MT SCH ×2 (08:00→19:34)
[2017-11-12] MEDS: INSULIN ASPART SUPPLEMENTAL SCALE SQ SCH ×4 (08:00→21:00)
[2017-11-12] MEDS: ENOXAPARIN SODIUM 40 MG/0.4 ML SYRINGE SQ SCH (08:00)
[2017-11-12] MEDS: NYSTATIN 100,000 U/GM PWD 15 GM BTL TOPICAL SCH ×2 (09:00→21:34)
[2017-11-12] MEDS: INSULIN DETEMIR 100 UNITS/ML VIAL SQ SCH ×2 (09:00→21:35)
[2017-11-12] MEDS: SODIUM CHLORIDE 0.9% FLUSH 10 ML FLUSH IV FLUSH SCH ×3 (09:00→21:35)
[2017-11-12] MEDS: CARVEDILOL 6.25 MG TAB PO SCH ×2 (09:38→21:33)
[2017-11-12] MEDS: CHOLESTYRAMINE 4 GM PACKET PO SCH (09:38)
[2017-11-12] MEDS: LACTOBACILLUS ACIDOPHILUS TAB PO SCH ×2 (09:38→21:33)
[2017-11-12] MEDS: PANTOPRAZOLE SOD 40 MG DELAYED RELEASE TAB PO SCH ×2 (09:38→21:33)
[2017-11-12] MEDS: VANCOMYCIN 1,500 MG/NS 500 ML IV SCH ×4 (09:46→21:34)
--- NOTE | 2017-11-12 11:31 | HHI.PR ---
Subjective Remarks Follow-up endocarditis/questionable bilateral pulmonary infiltrate November 06, 2017-patient seen and examined, patient is alert and oriented 3, currently afebrile, and denies any chest pain or shortness of breath November 07, 2017-patient seen and examined, reports of loose stool with streak of blood. Currently n.p.o. pending bronchoscopy today. November 08, 2017-patient seen and examined, patient reported improvement of shortness of breath. However now complains of right lower extremity swelling and tingling. November 09, 2017-patient seen and examined still complaining of right lower extremity pain. Denies any chest pain or shortness of breath. Currently afebrile. November 10, 2017-patient seen and examined, no acute event overnight; however reports some bloody stools. doppler + for nonocclusive thrombus November 11, 2017-patient seen and examined, still spiking fevers at night, no other issues November 12, 2017 with spikes of fevers. Says he also cannot sleep at night and is requesting some sleeping aid medications. Otherwise no concerns. Objective Vitals Vital Signs Date Time Temp Pulse Resp B/P (MAP) Pulse Ox O2 Delivery O2 Flow Rate FiO2 11/12/17 08:00 98.9 96 16 142/71 (94) 97 11/12/17 06:54 18 11/12/17 04:00 100.1 93 17 133/66 (88) 94 11/12/17 04:00 Room Air 11/12/17 03:52 94 11/12/17 00:05 93 11/12/17 00:00 Nasal Cannula 2.00 11/12/17 00:00 99.8 94 19 120/74 (89) 93 11/11/17 20:48 98 21 11/11/17 20:36 96 11/11/17 20:00 99.4 94 17 144/67 (92) 96 11/11/17 16:07 92 11/11/17 16:00 99.7 99 18 116/70 (85) 97 11/11/17 16:00 Nasal Cannula 2.00 11/11/17 12:12 97 11/11/17 12:00 Nasal Cannula 2.00 11/11/17 12:00 99.0 92 18 135/76 (95) 96 I/O 6/10/18 6/10/18 11/11/17 11/12/17 11/12/17 11/12/17 07:00 15:00 23:00 07:00 15:00 23:00 Intake Total 1500 ml 1115 ml 540 ml Output Total 3250 ml 1450 ml 1600 ml Balance -1750 ml -335 ml -1060 ml Intake Oral 1500 ml 600 ml 540 ml IV Total 515 ml Output Urine Total 3250 ml 1450 ml 1600 ml # Bowel Movements 0 1 Result Diagram: 11/09/17 0451 11/12/17 0556 Imaging Last Impressions Lower Extremity Ultrasound 11/09/17 Signed Impressions: CONCLUSION: 1. There is nonocclusive thrombus within the right common femoral vein. 2. The remaining veins of the right lower extremity are patent. Chest X-Ray 11/07/17 Signed Impressions: CONCLUSION: Significant improvement in aeration of the lungs. Abdomen MRI 11/03/17 Signed Impressions: CONCLUSION: 1. Nonspecific heterogeneous signal and enhancement pattern of the liver as de scribed above and not convincingly changed from the prior CT. This is not parti cularly masslike or with organized fluid. A transient phenomenon related to hep atomegaly and/or hepatocellular disease is thought most likely. Hepatic abscess es are considered unlikely. 2. Small spleen and it also has diffusely heterogeneous signal and enhancement . Acute or subacute superimposed on chronic splenic infarcts are considered mos t likely. No significant change from the CT. In addition, no particularly mass like area and also no evidence of organized fluid so splenic abscesses are cons idered less likely. Abdomen/Pelvis CT 10/27/17 Signed Impressions: CONCLUSION: 1. No evidence of retroperitoneal hemorrhage. 2. Bibasilar subsegmental airspace disease and small bilateral effusions. 3. Patchy areas of hypodensity throughout the liver and spleen of uncertain et iology. Considering patient's history a septic vascular embolic process should be considered. 4. Minimal air in the urinary bladder. 5. Developing anasarca. Chest CT 10/25/17 Signed Impressions: CONCLUSION: 1. Multiple bilateral scattered interstitial and airspace infiltrates througho ut both lung yuen suggestive of some type of inflammatory process. 2. Abnormal appearance of the liver. Recommend CT scan of the abdomen with IV contrast for further evaluation. Brain MRI 10/25/17 Signed Impressions: CONCLUSION: 1. Unremarkable MRI examination of the brain. Specifically, no cerebral edema or diffusion abnormality to suggest encephalitis. Head CT 10/24/17 Signed Impressions: CONCLUSION: 1. No acute intracranial abnormality. Gall Bladder Ultrasound 10/23/17 Signed Impressions: CONCLUSION: 1. There is increased echogenicity of the liver suggestive of fatty infiltrati on and/or hepatocellular disease. 2. No evidence of gallstones or biliary tract obstruction. Renal Ultrasound 10/19/17 Signed Impressions: Service Date/Time: Thursday, October 19, 2017 09:46 - CONCLUSION: Normal examination. Alexx Baig MD Objective Remarks GENERAL: 42 yo M appears in NAD CARDIOVASCULAR: Regular rate and rhythm without murmurs, gallops, or rubs. RESPIRATORY: Breath sounds equal bilaterally. No accessory muscle use. GASTROINTESTINAL: Abdomen soft, non-tender, nondistended. MUSCULOSKELETAL: No cyanosis, or edema. BACK: Nontender without obvious deformity. No CVA tenderness. Date of Insertion: October 19, 2017 A/P Problem List: (1) Acute respiratory failure ICD Code: J96.00 - Acute respiratory failure, unspecified whether with hypoxia or hypercapnia (2) Acute encephalopathy ICD Code: G93.40 - Encephalopathy, unspecified Status: Acute (3) Normocytic anemia ICD Code: D64.9 - Anemia, unspecified (4) Lactic acidosis ICD Code: E87.2 - Acidosis Status: Acute (5) Hypoalbuminemia ICD Code: E88.09 - Other disorders of plasma-protein metabolism, not elsewhere classified (6) Hypophosphatemia ICD Code: E83.39 - Other disorders of phosphorus metabolism Status: Acute (7) Hypokalemia ICD Code: E87.6 - Hypokalemia Status: Acute (8) Hypermagnesemia ICD Code: E83.41 - Hypermagnesemia (9) Acute kidney injury ICD Code: N17.9 - Acute kidney failure, unspecified Status: Acute (10) Leukocytosis ICD Code: D72.829 - Elevated white blood cell count, unspecified Status: Acute (11) Hyponatremia ICD Code: E87.1 - Hypo-osmolality and hyponatremia Status: Acute (12) Hypertension ICD Code: I10 - Essential (primary) hypertension (13) Pyrexia ICD Code: R50.9 - Fever, unspecified Status: Acute (14) Depression ICD Code: F32.9 - Major depressive disorder, single episode, unspecified (15) Ketoacidosis due to secondary diabetes ICD Code: E13.10 - Other specified diabetes mellitus with ketoacidosis without coma Status: Acute (16) BMI 37.0-37.9, adult ICD Code: Z68.37 - Body mass index (BMI) 37.0-37.9, adult Status: Acute Assessment and Plan 42-year-old man with: Endocarditis, sepsis, fevers Patient has multiple embolic lesions, SHASHI shows aortic valve vegetation 0.7 x 0.8 cm Infectious disease recommends staying with Rocephin and vancomycin for now, patient will need antibiotics until possible November 29, 2017. Appreciate infectious disease consult Appreciate cardiology workup Hypertension Continue Norvasc, Coreg,and hydralazine. Anxiety Continue Xanax Acute hypoxic and hypercarbic respiratory failure Bilateral pulmonary infiltrate Extubated 10/24/2017, doing well on nasal cannula oxygen Pulmonology consulted for abnormalities on imaging Status post bronchoscopy 11/07/17 pending cytology and culture report Follow-up CHEST X-RAY November 07, 2017 showed significant improvement of aeration in the lungs Upper GI bleed Gastroenterology signed off Continue pantoprazole Right lower extremity pain Nonocclusive thrombus and currently on 40 subcu of Lovenox daily, discharge home on Eliquis when ready to leave the hospital Doppler + DVT Acute hyperglycemic state Continue sliding-scale insulin with Accu-Cheks Continue Levemir 5 U q12h, hemoglobin A1c 13. Diabetic diet Tinea cruris Continue nystatin Insomnia start melatonin hS DVT prophylaxis Lovenox DC plan: patient with endocarditis with spikes of fevers, needs IV abx. ID ff DC when improved and cleared by consultants. Problem Qualifiers (1) Acute respiratory failure: Qualified Codes: J96.01 - Acute respiratory failure with hypoxia; J96.02 - Acute respiratory failure with hypercapnia (2) Pyrexia: Qualified Codes: R50.9 - Fever, unspecified (3) Depression: Qualified Codes: F32.9 - Major depressive disorder, single episode, unspecified Shante Luke MD Nov 12, 2017 11:31
--- NOTE | 2017-11-12 12:38 | HHI.IDPN ---
Subjective Subjective Remarks Patient is a 42-year-old male, brought into the hospital for evaluation of multiple symptoms. He apparently has been having problem with poor p.o. intake , and thirst and increasing fluid intake. There is also mention that he has had problem with nausea and vomiting and some confusion. The symptoms have been going on for about a month. Was brought into the emergency room, and he was found to have a blood sugar of 1800, creatinine was up to 3, sodium 21, and he has multiple abnormal electrolytes. He also had acidosis, and high fevers. His white count was elevated. In the ED he became more unresponsive, and he ended up getting intubated. He was initially on pressors. He was also found to have a very elevated CPK. His electrolytes stabilized, and his acidosis improved. Creatinine improved, and he has improvement in his urine output. He had 2 blood cultures done and those are negative. He was started on empiric antibiotics for possible aspiration. Initial urinalysis was unremarkable. Patient remains on the vent. His mental status still has not improved. Neurology has been consulted. Patient's temperatures seem to have improved. His chest x-ray showing bilateral pulmonary infiltrates and some nodular infiltrates. He has been getting vancomycin, cefepime, and Flagyl. His CPKs are still elevated, and his LFTs were also elevated. Patient also during his hospitalization had episode of V. tach and was resuscitated successfully. Infectious disease consultation has been requested to evaluate patient with high fevers. Notes reviewed Temps up again this weekend Has non-occlusive thrombus R CFV Bronch C/S negative Cytology pending Biopsy suggestive of eosinophilic pneumonia WBC staying 11K Last CXR improving Previous BC negative No diarrhea Qfever negative Bartonella negative SHASHI has vegetation small in AV HIV negative Hepatitis negative Antibiotics Rocephin Vancomycin Current Medications Medications (Trade) Dose Ordered Sig/Jacky Route Start Time Stop Time Status Last Admin (NS Flush) 2 ml UNSCH PRN IV FLUSH 10/19/17 02:30 (NS Flush) 2 ml BID IV FLUSH 10/19/17 09:00 11/12/17 09:40 (Albuterol Neb) 2.5 mg Q2HR NEB PRN INH 10/19/17 02:30 10/24/17 08:36 ([facility] [place] Nursing Information) 1 Q361D XX 10/19/17 02:30 10/19/17 02:30 (Chlorhexidine 2% Cloth) Taper DAILY@04 TOP 10/19/17 04:00 10/15/18 03:59 10/27/17 04:00 (Chlorhexidine 2% Cloth) 3 pack UNSCH PRN TOP 10/19/17 02:30 (Milk Of Magnesia Liq) 30 ml Q12H PRN PO 10/19/17 02:30 Future Hold (Senokot) 17.2 mg Q12H PRN PO 10/19/17 02:30 Future Hold (Dulcolax Supp) 10 mg DAILY PRN RECTAL 10/19/17 02:30 (Zofran Odt) 4 mg Q6H PRN PO 10/19/17 02:30 10/29/17 23:44 (Tears Naturale Opth Soln) 1 drop Q8HR EACH EYE 10/19/17 06:00 11/11/17 21:31 (Peridex 0.12% Liq) 15 ml BID@08,20 MT 10/19/17 08:00 11/09/17 20:00 (Brethine Inj) 1 mg UNSCH PRN SQ 10/19/17 07:45 (Lactulose Liq) 30 ml DAILY PRN PO 10/23/17 21:30 Future Hold (D50w (Vial) Inj) 50 ml UNSCH PRN IV PUSH 10/24/17 21:00 (Glucagon Inj) 1 mg UNSCH PRN OTHER 10/24/17 21:00 (Levemir Inj) 5 units Q12HR SQ 10/25/17 10:00 11/12/17 09:00 (Norvasc) 10 mg DAILY PO 10/26/17 09:00 11/12/17 09:38 (Lovenox Inj) 40 mg Q24H SQ 10/26/17 08:00 11/12/17 08:00 (Protonix) 40 mg Q12HR PO 10/27/17 21:00 11/12/17 09:38 (Apresoline) 50 mg Q8HR PO 10/27/17 22:00 11/12/17 05:21 (NovoLOG SUPPLEMENTAL SCALE) 1 ACHS SLIDING SCALE SQ 10/27/17 17:00 11/11/17 21:31 (Mycostatin Powder) 1 applic Q12HR TOPICAL 10/27/17 21:00 11/11/17 21:00 (Ultram) 50 mg Q8H PRN PO 10/29/17 13:15 11/12/17 05:20 Pharmacy Profile Note 0 ml @ 0 mls/hr UNSCH OTHER 10/31/17 12:00 Ceftriaxone Sodium 2000 mg/ Sodium Chloride 100 ml @ 200 mls/hr Q24H IV 10/31/17 13:00 11/11/17 13:33 (Coreg) 6.25 mg Q12HR PO 11/02/17 21:00 11/12/17 09:38 (Xanax) 0.25 mg Q6HR PRN PO 11/03/17 12:30 11/12/17 05:21 (Tylenol) 325 mg Q4H PRN PO 11/03/17 18:45 11/12/17 05:21 (Questran 4 Gm Pkt) 4 gm DAILY PO 11/05/17 09:00 11/12/17 09:38 (Librium) 50 mg TID PRN PO 11/05/17 13:15 Vancomycin HCl 1500 mg/Sodium Chloride 515 ml @ 257.5 mls/ hr Q12H IV 11/06/17 22:00 11/12/17 09:46 (Lactinex) 1 tab Q12HR PO 11/07/17 21:00 11/12/17 09:38 (NS Flush) See Protocol DAILY IV FLUSH 11/11/17 09:00 11/12/17 09:00 (NS Flush) See Protocol UNSCH PRN IV FLUSH 11/10/17 18:00 (Heparin Central Flush) See Protocol DAILY IV FLUSH 11/11/17 09:00 11/12/17 09:38 (Heparin Central Flush) See Protocol UNSCH PRN IV FLUSH 11/10/17 18:00 (NS Flush) UNSCH PRN IV FLUSH 11/10/17 18:00 Lines PICC no evidence of infection Past Medical History Depression/anxiety Hypertension NSAID use Allergies: Coded Allergies: No Known Allergies (Unverified Allergy, Unknown, 10/18/17) Objective . Vital Signs Date Time Temp Pulse Resp B/P (MAP) Pulse Ox O2 Delivery O2 Flow Rate FiO2 11/12/17 08:00 98.9 96 16 142/71 (94) 97 6/11/18 06:54 18 11/12/17 04:00 100.1 93 17 133/66 (88) 94 11/12/17 04:00 Room Air 11/12/17 03:52 94 11/12/17 00:05 93 11/12/17 00:00 Nasal Cannula 2.00 11/12/17 00:00 99.8 94 19 120/74 (89) 93 11/11/17 20:48 98 21 11/11/17 20:36 96 11/11/17 20:00 99.4 94 17 144/67 (92) 96 11/11/17 16:07 92 11/11/17 16:00 99.7 99 18 116/70 (85) 97 11/11/17 16:00 Nasal Cannula 2.00 . Laboratory Tests Test 11/12/17 05:56 Creatinine 0.86 MG/DL Estimat Glomerular Filtration Rate 119 ML/MIN Imaging Last 72 hours Impressions Abdomen/Pelvis CT 10/27/17 Signed Impressions: CONCLUSION: 1. No evidence of retroperitoneal hemorrhage. 2. Bibasilar subsegmental airspace disease and small bilateral effusions. 3. Patchy areas of hypodensity throughout the liver and spleen of uncertain et iology. Considering patient's history a septic vascular embolic process should be considered. 4. Minimal air in the urinary bladder. 5. Developing anasarca. Chest X-Ray 10/26/17599 Signed Impressions: CONCLUSION: Diffuse consolidation likely related to diffuse underlying processes such as ed aaron or diffuse inflammatory change. Last 72 hours Impressions Chest X-Ray 10/24/17599 Signed Impressions: CONCLUSION: No significant change. Bilateral pulmonary opacities remain. Head CT 10/24/17 Signed Impressions: CONCLUSION: 1. No acute intracranial abnormality. Gall Bladder Ultrasound 10/23/17 Signed Impressions: CONCLUSION: 1. There is increased echogenicity of the liver suggestive of fatty infiltrati on and/or hepatocellular disease. 2. No evidence of gallstones or biliary tract obstruction. Chest X-Ray 10/23/17 Signed Impressions: CONCLUSION: Scattered bilateral pulmonary infiltrates. Last Impressions Gall Bladder Ultrasound 10/23/17 Signed Impressions: CONCLUSION: Chest X-Ray 10/23/17 Signed Impressions: CONCLUSION: Scattered bilateral pulmonary infiltrates. Renal Ultrasound 5/18/18 0000 Signed Impressions: Service Date/Time: Thursday, October 19, 2017 09:46 - CONCLUSION: Normal examination. Alexx Baig MD Physical Exam GENERAL: Awake and alert, NAD. SKIN: Cool and dry. No generalized rash. HEAD: Atraumatic. Normocephalic. No temporal wasting, or tenderness. EYES: [place] conjunctiva. No petechia or hemorrhage. Has dirty sclera. EARS, NOSE AND THROAT: Nose without bleeding or purulent nasal discharge. Moist mucosa NECK: Trachea midline. Supple and not tender, no meningeal signs CARDIOVASCULAR: Regular rate and rhythm. No murmurs, rubs or gallops heard RESPIRATORY: Decreased BS at bases ABDOMEN: Distended, mild tenderness, not guarding, bowel sounds present and hypoactive. EXTREMITIES: Warm, has pitting edema. Has embolic lesions tip of 3 fingers on his R hand NEUROLOGICAL: Grossly non-focal PSYCHIATRIC: Calm and cooperative LINE: No evidence of infection Assessment & Plan Remarks IMPRESSION Possible sepsis on initial presentation with fevers, dec LOC, MOSF - better - source possible lung, has aishwarya nodular infiltrates, BC negative, no sputum C/S - possibly initial source is his endocarditis - he has been on Abx sonce 10/19 Has multiple embolic lesions, source? IE - his BC have been negative - SHASHI with small AV vegetation Endocarditis - C/S have been negative on admission - ?Culture negative endocarditis Aishwarya pulmonary infiltrates, etiology? - ?inflammatory - last CXR now has shown significant improvement in his infiltrates DM, DKA Elevated CPK, resolved Elevated LFTs, improving Renal failure, resolved Acidosis, resolved Encephalopathy, ?metabolic, or [employer] etiology, resolved Leukocytosis, improving Anemia, stable fevers, up again RECOMMENDATION Continue Rocephin Continue Vancomycin He has been on Abx sonce 10/19 Plan to give Abx until November 29 Repeat C/S: BC and UC Repeat CXR Follow temps Monitor progress Haley Sanchez MD Nov 12, 2017 12:37
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
[2017-11-12] MEDS: cefTRIAXone INJ 2,000 MG in SODIUM CHLORIDE 0.9% INJ 100 ML IV SCH (15:34)
--- NOTE | 2017-11-12 20:07 | HHI.PR ---
Subjective Remarks 42 YOAA male with Bipolar disorder, Lung infilt, fever No Sputum Denies sob no CP Had Bronch, no mass, erythema or secretions BAL cultures neg BX Organising Pn, eiosinophilic pn CXR much improved Objective Vital Signs Vital Signs Date Time Temp Pulse Resp B/P (MAP) Pulse Ox O2 Delivery O2 Flow Rate FiO2 11/12/17 16:00 98.0 80 18 124/72 (89) 97 11/12/17 16:00 94 11/12/17 15:00 Room Air 2.00 21 11/12/17 14:33 95 21 11/12/17 12:00 Room Air 2.00 21 11/12/17 12:00 98.7 78 18 126/78 (94) 97 11/12/17 12:00 96 11/12/17 08:00 98.9 96 16 142/71 (94) 97 11/12/17 08:00 97 11/12/17 07:15 Room Air 11/12/17 06:54 18 11/12/17 04:00 100.1 93 17 133/66 (88) 94 11/12/17 04:00 Room Air 11/12/17 03:52 94 11/12/17 00:05 93 11/12/17 00:00 Nasal Cannula 2.00 11/12/17 00:00 99.8 94 19 120/74 (89) 93 11/11/17 20:48 98 21 11/11/17 20:36 96 I/O 11/11/17 11/11/17 11/11/17 11/12/17 11/12/17 11/12/17 07:00 15:00 23:00 07:00 15:00 23:00 Intake Total 1500 ml 1115 ml 540 ml 600 ml Output Total 3250 ml 1450 ml 1600 ml Balance -1750 ml -335 ml -1060 ml 600 ml Intake Oral 1500 ml 600 ml 540 ml 600 ml IV Total 515 ml Output Urine Total 3250 ml 1450 ml 1600 ml # Voids 5 # Bowel Movements 0 1 Result Diagram: 11/09/17 0451 11/12/17 0556 Objective Remarks GENERAL: WBWN AA male, NAD SKIN: Warm and dry. HEAD: Normocephalic. EYES: No scleral icterus. No injection or drainage. NECK: Supple, trachea midline. No JVD or lymphadenopathy. CARDIOVASCULAR: Regular rate and rhythm without murmurs, gallops, or rubs. RESPIRATORY: Breath sounds equal bilaterally. No accessory muscle use. GASTROINTESTINAL: Abdomen soft, non-tender, nondistended. MUSCULOSKELETAL: No cyanosis, or edema. BACK: Nontender without obvious deformity. No CVA tenderness. A/P Assessment and Plan IMPRESSION: 1. Bilateral lung infiltrate with ongoing fever. He has been treated with antibiotic. Cultures have been negative. Possibility of inflammatory process of the lung or alveolitis. 2. Diabetes mellitus. 3. Renal insufficiency has improved. 4. Benign prostatic hypertrophy. 5. Bipolar disorder. 6. Organising Pn, eiosinophilic Pn PLAN: Cont Abx per ID Check BAL, Bx results DW Pt Wean 02 Will add steroids Han Gonsalves MD Nov 12, 2017 20:07
[2017-11-12] MEDS: predniSONE 20 MG TAB PO SCH (21:33)
[2017-11-13] VITALS (13 sets, daily range): BP systolic 133–140; BP diastolic 67–78; PULSE 93–106; RESP 14–18; TEMP 98.4–99.9; O2SAT 94–97
[2017-11-13] MEDS: MELATONIN 5 MG TAB PO PRN (00:10)
[2017-11-13] MEDS: CHLORHEXIDINE GLUCONATE 2 % 1 PACK (2 CLOTHS) TOP SCH (04:00)
[2017-11-13] MEDS: hydrALAZINE HCL 50 MG TAB PO SCH ×3 (05:57→22:07)
[2017-11-13] MEDS: ALPRAZolam 0.25 MG TAB PO PRN ×2 (05:58→22:07)
[2017-11-13] MEDS: traMADol HCL 50 MG TAB PO PRN ×2 (05:58→22:07)
[2017-11-13] MEDS: ARTIFICIAL TEARS OPTH SOLN 15 ML BTL EACH EYE SCH ×3 (05:58→22:00)
[2017-11-13] MEDS: CHLORHEXIDINE 0.12% (ORAL KIT) 15 ML CUP MT SCH ×2 (08:00→20:00)
[2017-11-13] MEDS: INSULIN ASPART SUPPLEMENTAL SCALE SQ SCH ×4 (08:00→21:00)
[2017-11-13] MEDS: INSULIN DETEMIR 100 UNITS/ML VIAL SQ SCH ×2 (09:00→21:00)
[2017-11-13] MEDS: NYSTATIN 100,000 U/GM PWD 15 GM BTL TOPICAL SCH ×2 (09:00→21:00)
[2017-11-13] MEDS: SODIUM CHLORIDE 0.9% FLUSH 10 ML FLUSH IV FLUSH SCH ×3 (09:00→22:07)
[2017-11-13] MEDS: PANTOPRAZOLE SOD 40 MG DELAYED RELEASE TAB PO SCH ×2 (09:23→22:06)
[2017-11-13] MEDS: LACTOBACILLUS ACIDOPHILUS TAB PO SCH ×2 (09:23→22:07)
[2017-11-13] MEDS: CARVEDILOL 6.25 MG TAB PO SCH ×2 (09:23→22:07)
[2017-11-13] MEDS: predniSONE 20 MG TAB PO SCH ×2 (09:23→22:07)
[2017-11-13] MEDS: ENOXAPARIN SODIUM 40 MG/0.4 ML SYRINGE SQ SCH (09:23)
[2017-11-13] MEDS: CHOLESTYRAMINE 4 GM PACKET PO SCH (09:24)
[2017-11-13] MEDS: VANCOMYCIN 1,500 MG/NS 500 ML IV SCH ×4 (09:30→22:06)
--- NOTE | 2017-11-13 10:11 | HHI.IDPN ---
Subjective Subjective Remarks Patient is a 42-year-old male, brought into the hospital for evaluation of multiple symptoms. He apparently has been having problem with poor p.o. intake , and thirst and increasing fluid intake. There is also mention that he has had problem with nausea and vomiting and some confusion. The symptoms have been going on for about a month. Was brought into the emergency room, and he was found to have a blood sugar of 1800, creatinine was up to 3, sodium 21, and he has multiple abnormal electrolytes. He also had acidosis, and high fevers. His white count was elevated. In the ED he became more unresponsive, and he ended up getting intubated. He was initially on pressors. He was also found to have a very elevated CPK. His electrolytes stabilized, and his acidosis improved. Creatinine improved, and he has improvement in his urine output. He had 2 blood cultures done and those are negative. He was started on empiric antibiotics for possible aspiration. Initial urinalysis was unremarkable. Patient remains on the vent. His mental status still has not improved. Neurology has been consulted. Patient's temperatures seem to have improved. His chest x-ray showing bilateral pulmonary infiltrates and some nodular infiltrates. He has been getting vancomycin, cefepime, and Flagyl. His CPKs are still elevated, and his LFTs were also elevated. Patient also during his hospitalization had episode of V. tach and was resuscitated successfully. Infectious disease consultation has been requested to evaluate patient with high fevers. Notes reviewed Temps low grade overnight C/O pain RLE Has non-occlusive thrombus R CFV Started on steroids yesterday Bronch C/S negative Cytology pending Biopsy suggestive of eosinophilic pneumonia WBC staying 11K CXR worse on L Previous BC negative No diarrhea Qfever negative Bartonella negative SHASHI has vegetation small in AV HIV negative Hepatitis negative Antibiotics Rocephin Vancomycin Current Medications Medications (Trade) Dose Ordered Sig/Jacky Route Start Time Stop Time Status Last Admin (NS Flush) 2 ml UNSCH PRN IV FLUSH 10/19/17 02:30 11/13/17 00:10 (NS Flush) 2 ml BID IV FLUSH 10/19/17 09:00 11/12/17 21:35 (Albuterol Neb) 2.5 mg Q2HR NEB PRN INH 10/19/17 02:30 10/24/17 08:36 ([facility] Nursing Information) 1 Q361D XX 10/19/17 02:30 10/19/17 02:30 (Chlorhexidine 2% Cloth) Taper DAILY@04 TOP 10/19/17 04:00 10/15/18 03:59 10/27/17 04:00 (Chlorhexidine 2% Cloth) 3 pack UNSCH PRN TOP 10/19/17 02:30 (Milk Of Magnesia Liq) 30 ml Q12H PRN PO 10/19/17 02:30 Future Hold (Senokot) 17.2 mg Q12H PRN PO 10/19/17 02:30 Future Hold (Dulcolax Supp) 10 mg DAILY PRN RECTAL 10/19/17 02:30 (Zofran Odt) 4 mg Q6H PRN PO 10/19/17 02:30 10/29/17 23:44 (Tears Naturale Opth Soln) 1 drop Q8HR EACH EYE 10/19/17 06:00 11/13/17 05:58 (Peridex 0.12% Liq) 15 ml BID@08,20 MT 10/19/17 08:00 11/09/17 20:00 (Brethine Inj) 1 mg UNSCH PRN SQ 10/19/17 07:45 (Lactulose Liq) 30 ml DAILY PRN PO 10/23/17 21:30 Future Hold (D50w (Vial) Inj) 50 ml UNSCH PRN IV PUSH 10/24/17 21:00 (Glucagon Inj) 1 mg UNSCH PRN OTHER 10/24/17 21:00 (Levemir Inj) 5 units Q12HR SQ 10/25/17 10:00 11/13/17 09:00 (Norvasc) 10 mg DAILY PO 10/26/17 09:00 11/13/17 09:23 (Lovenox Inj) 40 mg Q24H SQ 10/26/17 08:00 11/13/17 09:23 (Protonix) 40 mg Q12HR PO 10/27/17 21:00 11/13/17 09:23 (Apresoline) 50 mg Q8HR PO 10/27/17 22:00 11/13/17 05:57 (NovoLOG SUPPLEMENTAL SCALE) 1 ACHS SLIDING SCALE SQ 10/27/17 17:00 11/11/17 21:31 (Mycostatin Powder) 1 applic Q12HR TOPICAL 10/27/17 21:00 11/13/17 09:00 (Ultram) 50 mg Q8H PRN PO 10/29/17 13:15 11/13/17 05:58 Pharmacy Profile Note 0 ml @ 0 mls/hr UNSCH OTHER 10/31/17 12:00 Ceftriaxone Sodium 2000 mg/ Sodium Chloride 100 ml @ 200 mls/hr Q24H IV 10/31/17 13:00 11/12/17 15:34 (Coreg) 6.25 mg Q12HR PO 11/02/17 21:00 11/13/17 09:23 (Xanax) 0.25 mg Q6HR PRN PO 11/03/17 12:30 11/13/17 05:58 (Tylenol) 325 mg Q4H PRN PO 11/03/17 18:45 11/12/17 05:21 (Questran 4 Gm Pkt) 4 gm DAILY PO 11/05/17 09:00 11/13/17 09:24 (Librium) 50 mg TID PRN PO 11/05/17 13:15 Vancomycin HCl 1500 mg/Sodium Chloride 515 ml @ 257.5 mls/ hr Q12H IV 11/06/17 22:00 11/13/17 09:30 (Lactinex) 1 tab Q12HR PO 11/07/17 21:00 11/13/17 09:23 (NS Flush) See Protocol DAILY IV FLUSH 11/11/17 09:00 11/13/17 09:35 (NS Flush) See Protocol UNSCH PRN IV FLUSH 11/10/17 18:00 (Heparin Central Flush) See Protocol DAILY IV FLUSH 11/11/17 09:00 11/13/17 09:36 (Heparin Central Flush) See Protocol UNSCH PRN IV FLUSH 11/10/17 18:00 11/13/17 00:10 (NS Flush) UNSCH PRN IV FLUSH 11/10/17 18:00 (Melatonin) 5 mg HS PRN PO 11/12/17 15:30 11/13/17 00:10 (Deltasone) 20 mg BID PO 11/12/17 21:00 11/13/17 09:23 Lines PICC no evidence of infection Past Medical History Depression/anxiety Hypertension NSAID use Allergies: Coded Allergies: No Known Allergies (Unverified Allergy, Unknown, 10/18/17) Objective . Vital Signs Date Time Temp Pulse Resp B/P (MAP) Pulse Ox O2 Delivery O2 Flow Rate FiO2 11/13/17 08:11 98.9 97 17 135/75 (95) 94 11/13/17 04:00 Room Air 11/13/17 04:00 98.7 98 16 133/78 (96) 95 11/13/17 03:42 93 11/13/17 00:00 Room Air 11/13/17 00:00 99.9 95 14 139/72 (94) 96 11/12/17 23:41 99 11/12/17 20:00 Room Air 11/12/17 20:00 100.1 98 18 137/66 (89) 97 11/12/17 19:48 96 11/12/17 16:00 98.0 80 18 124/72 (89) 97 11/12/17 16:00 94 11/12/17 15:00 Room Air 2.00 21 11/12/17 14:33 95 21 11/12/17 12:00 Room Air 2.00 21 11/12/17 12:00 98.7 78 18 126/78 (94) 97 11/12/17 12:00 96 . Laboratory Tests Test 11/12/17 05:56 Creatinine 0.86 MG/DL Estimat Glomerular Filtration Rate 119 ML/MIN Microbiology Date/Time Source Procedure Growth Status 11/12/17 20:32 Blood Peripheral Aerobic Blood Culture Pending Received 11/12/17 20:32 Blood Peripheral Anaerobic Blood Culture Pending Received 11/12/17 20:20 Blood Peripheral Aerobic Blood Culture Pending Received 11/12/17 20:20 Blood Peripheral Anaerobic Blood Culture Pending Received Imaging Last 72 hours Impressions Abdomen/Pelvis CT 10/27/17 0000 Signed Impressions: CONCLUSION: 1. No evidence of retroperitoneal hemorrhage. 2. Bibasilar subsegmental airspace disease and small bilateral effusions. 3. Patchy areas of hypodensity throughout the liver and spleen of uncertain et iology. Considering patient's history a septic vascular embolic process should be considered. 4. Minimal air in the urinary bladder. 5. Developing anasarca. Chest X-Ray 10/26/17 0600 Signed Impressions: CONCLUSION: Diffuse consolidation likely related to diffuse underlying processes such as ed aaron or diffuse inflammatory change. Last 72 hours Impressions Chest X-Ray 10/24/17 0600 Signed Impressions: CONCLUSION: No significant change. Bilateral pulmonary opacities remain. Head CT 10/24/17 Signed Impressions: CONCLUSION: 1. No acute intracranial abnormality. Gall Bladder Ultrasound 10/23/17 Signed Impressions: CONCLUSION: 1. There is increased echogenicity of the liver suggestive of fatty infiltrati on and/or hepatocellular disease. 2. No evidence of gallstones or biliary tract obstruction. Chest X-Ray 10/23/17 Signed Impressions: CONCLUSION: Scattered bilateral pulmonary infiltrates. Last Impressions Gall Bladder Ultrasound 10/23/17 Signed Impressions: CONCLUSION: Chest X-Ray 10/23/17 Signed Impressions: CONCLUSION: Scattered bilateral pulmonary infiltrates. Renal Ultrasound 10/19/17 Signed Impressions: Service Date/Time: Thursday, October 19, 2017 09:46 - CONCLUSION: Normal examination. Alexx Baig MD Physical Exam GENERAL: Awake and alert, NAD. SKIN: Cool and dry. No generalized rash. HEAD: Atraumatic. Normocephalic. No temporal wasting, or tenderness. EYES: [place] conjunctiva. No petechia or hemorrhage. Has dirty sclera. EARS, NOSE AND THROAT: Nose without bleeding or purulent nasal discharge. Moist mucosa NECK: Trachea midline. Supple and not tender, no meningeal signs CARDIOVASCULAR: Regular rate and rhythm. No murmurs, rubs or gallops heard RESPIRATORY: Decreased BS at bases ABDOMEN: Distended, mild tenderness, not guarding, bowel sounds present and hypoactive. EXTREMITIES: Warm, has pitting edema. Has embolic lesions tip of 3 fingers on his R hand NEUROLOGICAL: Grossly non-focal PSYCHIATRIC: Calm and cooperative LINE: No evidence of infection Assessment & Plan Remarks IMPRESSION Possible sepsis on initial presentation with fevers, dec LOC, MOSF - better - source possible lung, has aishwarya nodular infiltrates, BC negative, no sputum C/S - possibly initial source is his endocarditis - he has been on Abx sonce 10/19 Has multiple embolic lesions, source? IE - his BC have been negative - SHASHI with small AV vegetation Endocarditis - C/S have been negative on admission - ?Culture negative endocarditis Aishwarya pulmonary infiltrates, etiology? - biopsy suggestive of eosinophilic PNA, organizing PNA DM, DKA Elevated CPK, resolved Elevated LFTs, improving Renal failure, resolved Acidosis, resolved Encephalopathy, ?metabolic, or [employer] etiology, resolved Leukocytosis, improving Anemia, stable Fevers, up again, ?due to thrombus RECOMMENDATION Continue Rocephin Continue Vancomycin He has been on Abx [facility] 10/19 Plan to give Abx until November 29 Follow repeat C/S Follow temps Monitor progress Haley Sanchez MD Nov 13, 2017 10:11
[2017-11-13] MEDS: cefTRIAXone INJ 2,000 MG in SODIUM CHLORIDE 0.9% INJ 100 ML IV SCH (13:05)
--- NOTE | 2017-11-13 14:56 | HHI.PR ---
Subjective Remarks He was walking earlier today with physical therapy. Denies any chest pain or shortness of breath. Says he has some pain his right leg when he is walking. No swelling. No fever or chills. Saturating well on room air Objective Vitals Vital Signs Date Time Temp Pulse Resp B/P (MAP) Pulse Ox O2 Delivery O2 Flow Rate FiO2 11/13/17 12:11 98.4 96 17 139/67 (91) 97 11/13/17 11:58 95 21 11/13/17 08:11 98.9 97 17 135/75 (95) 94 11/13/17 08:00 Room Air 11/13/17 04:00 Room Air 11/13/17 04:00 98.7 98 16 133/78 (96) 95 11/13/17 03:42 93 11/13/17 00:00 Room Air 11/13/17 00:00 99.9 95 14 139/72 (94) 96 11/12/17 23:41 99 11/12/17 20:00 Room Air 11/12/17 20:00 100.1 98 18 137/66 (89) 97 11/12/17 19:48 96 11/12/17 16:00 98.0 80 18 124/72 (89) 97 11/12/17 16:00 94 11/12/17 15:00 Room Air 2.00 21 I/O 11/12/17 11/12/17 11/12/17 11/13/17 11/13/17 11/13/17 07:00 15:00 23:00 07:00 15:00 23:00 Intake Total 540 ml 600 ml 1600 ml 510 ml Output Total 1600 ml 2200 ml Balance -1060 ml 600 ml -600 ml 510 ml Intake Oral 540 ml 600 ml 1050 ml IV Total 550 ml 510 ml Output Urine Total 1600 ml 2200 ml # Voids 5 # Bowel Movements 1 1 Result Diagram: 11/09/17 0451 11/12/17 0556 Imaging Last Impressions Chest X-Ray 11/12/17 0000 Signed Impressions: CONCLUSION: PICC line in good position. Interval improvement. Lower Extremity Ultrasound 11/09/17 0000 Signed Impressions: CONCLUSION: 1. There is nonocclusive thrombus within the right common femoral vein. 2. The remaining veins of the right lower extremity are patent. Abdomen MRI 11/03/17 Signed Impressions: CONCLUSION: 1. Nonspecific heterogeneous signal and enhancement pattern of the liver as de scribed above and not convincingly changed from the prior CT. This is not parti cularly masslike or with organized fluid. A transient phenomenon related to hep atomegaly and/or hepatocellular disease is thought most likely. Hepatic abscess es are considered unlikely. 2. Small spleen and it also has diffusely heterogeneous signal and enhancement . Acute or subacute superimposed on chronic splenic infarcts are considered mos t likely. No significant change from the CT. In addition, no particularly mass like area and also no evidence of organized fluid so splenic abscesses are cons idered less likely. Abdomen/Pelvis CT 10/27/17 Signed Impressions: CONCLUSION: 1. No evidence of retroperitoneal hemorrhage. 2. Bibasilar subsegmental airspace disease and small bilateral effusions. 3. Patchy areas of hypodensity throughout the liver and spleen of uncertain et iology. Considering patient's history a septic vascular embolic process should be considered. 4. Minimal air in the urinary bladder. 5. Developing anasarca. Chest CT 10/25/17 Signed Impressions: CONCLUSION: 1. Multiple bilateral scattered interstitial and airspace infiltrates througho ut both lung yuen suggestive of some type of inflammatory process. 2. Abnormal appearance of the liver. Recommend CT scan of the abdomen with IV contrast for further evaluation. Brain MRI 10/25/17 Signed Impressions: CONCLUSION: 1. Unremarkable MRI examination of the brain. Specifically, no cerebral edema or diffusion abnormality to suggest encephalitis. Head CT 10/24/17 Signed Impressions: CONCLUSION: 1. No acute intracranial abnormality. Gall Bladder Ultrasound 10/23/17 Signed Impressions: CONCLUSION: 1. There is increased echogenicity of the liver suggestive of fatty infiltrati on and/or hepatocellular disease. 2. No evidence of gallstones or biliary tract obstruction. Renal Ultrasound 10/19/17 Signed Impressions: Service Date/Time: Thursday, October 19, 2017 09:46 - CONCLUSION: Normal examination. Alexx Baig MD Objective Remarks GENERAL: 42 yo M appears in NAD CARDIOVASCULAR: Regular rate and rhythm without murmurs, gallops, or rubs. RESPIRATORY: Breath sounds equal bilaterally. No accessory muscle use. GASTROINTESTINAL: Abdomen soft, non-tender, nondistended. MUSCULOSKELETAL: No cyanosis, or edema. BACK: Nontender without obvious deformity. No CVA tenderness. Date of Insertion: October 19, 2017 A/P Problem List: (1) Acute respiratory failure ICD Code: J96.00 - Acute respiratory failure, unspecified whether with hypoxia or hypercapnia (2) Acute encephalopathy ICD Code: G93.40 - Encephalopathy, unspecified Status: Acute (3) Normocytic anemia ICD Code: D64.9 - Anemia, unspecified (4) Lactic acidosis ICD Code: E87.2 - Acidosis Status: Acute (5) Hypoalbuminemia ICD Code: E88.09 - Other disorders of plasma-protein metabolism, not elsewhere classified (6) Hypophosphatemia ICD Code: E83.39 - Other disorders of phosphorus metabolism Status: Acute (7) Hypokalemia ICD Code: E87.6 - Hypokalemia Status: Acute (8) Hypermagnesemia ICD Code: E83.41 - Hypermagnesemia (9) Acute kidney injury ICD Code: N17.9 - Acute kidney failure, unspecified Status: Acute (10) Leukocytosis ICD Code: D72.829 - Elevated white blood cell count, unspecified Status: Acute (11) Hyponatremia ICD Code: E87.1 - Hypo-osmolality and hyponatremia Status: Acute (12) Hypertension ICD Code: I10 - Essential (primary) hypertension (13) Pyrexia ICD Code: R50.9 - Fever, unspecified Status: Acute (14) Depression ICD Code: F32.9 - Major depressive disorder, single episode, unspecified (15) Ketoacidosis due to secondary diabetes ICD Code: E13.10 - Other specified diabetes mellitus with ketoacidosis without coma Status: Acute (16) BMI 37.0-37.9, adult ICD Code: Z68.37 - Body mass index (BMI) 37.0-37.9, adult Status: Acute Assessment and Plan 42-year-old man with: Endocarditis, sepsis, fevers Patient has multiple embolic lesions, SHASHI shows aortic valve vegetation 0.7 x 0.8 cm Infectious disease recommends staying with Rocephin and vancomycin for now, patient will need antibiotics until possible November 29, 2017. Appreciate infectious disease consult Appreciate cardiology workup Hypertension Continue Norvasc, Coreg,and hydralazine. Anxiety Continue Xanax Acute hypoxic and hypercarbic respiratory failure Bilateral pulmonary infiltrate Extubated 10/24/2017, doing well on nasal cannula oxygen Pulmonology consulted for abnormalities on imaging Status post bronchoscopy 11/07/17 pending cytology and culture report Follow-up CHEST X-RAY November 07, 2017 showed significant improvement of aeration in the lungs Upper GI bleed Gastroenterology signed off Continue pantoprazole Right lower extremity pain Nonocclusive thrombus and currently on 40 subcu of Lovenox daily, discharge home on Eliquis when ready to leave the hospital Doppler + DVT Acute hyperglycemic state Continue sliding-scale insulin with Accu-Cheks Continue Levemir 5 U q12h, hemoglobin A1c 13. Diabetic diet Tinea cruris Continue nystatin Insomnia start melatonin hS DVT prophylaxis Lovenox DC plan: patient with endocarditis with spikes of fevers, needs IV abx. ID ff DC when improved and cleared by consultants. Problem Qualifiers (1) Acute respiratory failure: Qualified Codes: J96.01 - Acute respiratory failure with hypoxia; J96.02 - Acute respiratory failure with hypercapnia (2) Pyrexia: Qualified Codes: R50.9 - Fever, unspecified (3) Depression: Qualified Codes: F32.9 - Major depressive disorder, single episode, unspecified Shante Luke MD Nov 13, 2017 14:55
--- NOTE | 2017-11-13 20:11 | HHI.PR ---
Subjective Remarks 42 YOAA male with Bipolar disorder, Lung infilt, fever Denies sob no CP Had Bronch, no mass, erythema or secretions BAL cultures neg BX Organising Pn, eiosinophilic pn Breathing better On RA, ambulates Objective Vital Signs Vital Signs Date Time Temp Pulse Resp B/P (MAP) Pulse Ox O2 Delivery O2 Flow Rate FiO2 11/13/17 16:19 99.0 97 17 133/72 (92) 97 11/13/17 16:00 98 11/13/17 12:11 98.4 96 17 139/67 (91) 97 11/13/17 12:00 102 11/13/17 11:58 95 21 11/13/17 08:11 98.9 97 17 135/75 (95) 94 11/13/17 08:00 100 11/13/17 08:00 Room Air 11/13/17 04:00 Room Air 11/13/17 04:00 98.7 98 16 133/78 (96) 95 11/13/17 03:42 93 11/13/17 00:00 Room Air 11/13/17 00:00 99.9 95 14 139/72 (94) 96 11/12/17 23:41 99 I/O 11/12/17 11/12/17 11/12/17 11/13/17 11/13/17 11/13/17 07:00 15:00 23:00 07:00 15:00 23:00 Intake Total 540 ml 600 ml 1600 ml 510 ml 940 ml Output Total 1600 ml 2200 ml 1000 ml Balance -1060 ml 600 ml -600 ml 510 ml -60 ml Intake Oral 540 ml 600 ml 1050 ml 940 ml IV Total 550 ml 510 ml Output Urine Total 1600 ml 2200 ml 1000 ml # Voids 5 # Bowel Movements 1 1 1 Result Diagram: 11/09/17 0451 11/12/17 0556 Objective Remarks GENERAL: WBWN AA male, NAD SKIN: Warm and dry. HEAD: Normocephalic. EYES: No scleral icterus. No injection or drainage. NECK: Supple, trachea midline. No JVD or lymphadenopathy. CARDIOVASCULAR: Regular rate and rhythm without murmurs, gallops, or rubs. RESPIRATORY: Breath sounds equal bilaterally. No accessory muscle use. GASTROINTESTINAL: Abdomen soft, non-tender, nondistended. MUSCULOSKELETAL: No cyanosis, or edema. BACK: Nontender without obvious deformity. No CVA tenderness. A/P Assessment and Plan IMPRESSION: 1. Bilateral lung infiltrate with ongoing fever. He has been treated with antibiotic. Cultures have been negative. Possibility of inflammatory process of the lung or alveolitis. 2. Diabetes mellitus. 3. Renal insufficiency has improved. 4. Benign prostatic hypertrophy. 5. Bipolar disorder. 6. Organising Pn, eiosinophilic Pn PLAN: Cont Abx per ID Check BAL, Bx results DW Pt PO Steroids Han Gonsalves MD Nov 13, 2017 20:11
[2017-11-14] VITALS (13 sets, daily range): BP systolic 121–147; BP diastolic 65–79; PULSE 84–106; RESP 16–20; TEMP 98.1–99.1; O2SAT 96–99
[2017-11-14] MEDS: MELATONIN 5 MG TAB PO PRN (00:27)
[2017-11-14] MEDS: CHLORHEXIDINE GLUCONATE 2 % 1 PACK (2 CLOTHS) TOP SCH (04:00)
[2017-11-14] MEDS: ARTIFICIAL TEARS OPTH SOLN 15 ML BTL EACH EYE SCH ×3 (06:00→22:00)
[2017-11-14] MEDS: hydrALAZINE HCL 50 MG TAB PO SCH ×3 (06:02→22:14)
[2017-11-14] MEDS: traMADol HCL 50 MG TAB PO PRN ×2 (06:02→14:37)
[2017-11-14] MEDS: INSULIN ASPART SUPPLEMENTAL SCALE SQ SCH ×4 (07:47→21:00)
[2017-11-14] MEDS: CHLORHEXIDINE 0.12% (ORAL KIT) 15 ML CUP MT SCH ×2 (08:00→20:00)
[2017-11-14] MEDS: LACTOBACILLUS ACIDOPHILUS TAB PO SCH ×2 (09:39→22:14)
[2017-11-14] MEDS: CARVEDILOL 6.25 MG TAB PO SCH ×2 (09:39→22:14)
[2017-11-14] MEDS: PANTOPRAZOLE SOD 40 MG DELAYED RELEASE TAB PO SCH ×2 (09:39→22:14)
[2017-11-14] MEDS: CHOLESTYRAMINE 4 GM PACKET PO SCH (09:39)
[2017-11-14] MEDS: predniSONE 20 MG TAB PO SCH ×2 (09:39→22:14)
[2017-11-14] MEDS: ENOXAPARIN SODIUM 40 MG/0.4 ML SYRINGE SQ SCH (09:39)
[2017-11-14] MEDS: INSULIN DETEMIR 100 UNITS/ML VIAL SQ SCH ×2 (09:39→21:00)
[2017-11-14] MEDS: VANCOMYCIN 1,500 MG/NS 500 ML IV SCH ×4 (09:40→22:13)
[2017-11-14] MEDS: SODIUM CHLORIDE 0.9% FLUSH 10 ML FLUSH IV FLUSH SCH ×3 (09:40→22:15)
[2017-11-14] MEDS: NYSTATIN 100,000 U/GM PWD 15 GM BTL TOPICAL SCH ×2 (09:40→21:00)
[2017-11-14 12:58] LABS: BILIRUBIN, URINE NEG (NEG); BLOOD, URINE NEG (NEG); GLUCOSE,URINE NEG (NEG); HYALINE CAST, URINE 6 /lpf (RARE); KETONE, URINE NEG (NEG); MUCUS URINE FEW /lpf (OCC); NITRITE,URINE NEG (NEG); SQUAMOUS EPITHELIAL CELL URINE 1 /hpf (0-5); URINE COLOR YELLOW (YELLW/STRAW); URINE LEUKOCYTE ESTERASE TRACE (NEG)
[2017-11-14] MEDS: cefTRIAXone INJ 2,000 MG in SODIUM CHLORIDE 0.9% INJ 100 ML IV SCH (13:04)
--- NOTE | 2017-11-14 15:18 | HHI.IDPN ---
Subjective Subjective Remarks Patient is a 42-year-old male, brought into the hospital for evaluation of multiple symptoms. He apparently has been having problem with poor p.o. intake , and thirst and increasing fluid intake. There is also mention that he has had problem with nausea and vomiting and some confusion. The symptoms have been going on for about a month. Was brought into the emergency room, and he was found to have a blood sugar of 1800, creatinine was up to 3, sodium 21, and he has multiple abnormal electrolytes. He also had acidosis, and high fevers. His white count was elevated. In the ED he became more unresponsive, and he ended up getting intubated. He was initially on pressors. He was also found to have a very elevated CPK. His electrolytes stabilized, and his acidosis improved. Creatinine improved, and he has improvement in his urine output. He had 2 blood cultures done and those are negative. He was started on empiric antibiotics for possible aspiration. Initial urinalysis was unremarkable. Patient remains on the vent. His mental status still has not improved. Neurology has been consulted. Patient's temperatures seem to have improved. His chest x-ray showing bilateral pulmonary infiltrates and some nodular infiltrates. He has been getting vancomycin, cefepime, and Flagyl. His CPKs are still elevated, and his LFTs were also elevated. Patient also during his hospitalization had episode of V. tach and was resuscitated successfully. Infectious disease consultation has been requested to evaluate patient with high fevers. Notes reviewed Temps better Good sats on RA Has non-occlusive thrombus R CFV On steroids per pulmonary Bronch C/S negative Cytology no malignancy Biopsy suggestive of eosinophilic pneumonia WBC staying 11K 11/12 CXR worse on L Previous BC negative No diarrhea Qfever negative Bartonella negative SHASHI has vegetation small in AV HIV negative Hepatitis negative Antibiotics Rocephin Vancomycin Current Medications Medications (Trade) Dose Ordered Sig/Jacky Route Start Time Stop Time Status Last Admin (NS Flush) 2 ml UNSCH PRN IV FLUSH 10/19/17 02:30 11/13/17 00:10 (NS Flush) 2 ml BID IV FLUSH 10/19/17 09:00 11/14/17 09:40 (Albuterol Neb) 2.5 mg Q2HR NEB PRN INH 10/19/17 02:30 10/24/17 08:36 ([facility] [place] Nursing Information) 1 Q361D XX 10/19/17 02:30 10/19/17 02:30 (Chlorhexidine 2% Cloth) Taper DAILY@04 TOP 10/19/17 04:00 10/15/18 03:59 10/27/17 04:00 (Chlorhexidine 2% Cloth) 3 pack UNSCH PRN TOP 10/19/17 02:30 (Milk Of Magnesia Liq) 30 ml Q12H PRN PO 10/19/17 02:30 Future Hold (Senokot) 17.2 mg Q12H PRN PO 10/19/17 02:30 Future Hold (Dulcolax Supp) 10 mg DAILY PRN RECTAL 10/19/17 02:30 (Zofran Odt) 4 mg Q6H PRN PO 10/19/17 02:30 10/29/17 23:44 (Tears Naturale Opth Soln) 1 drop Q8HR EACH EYE 10/19/17 06:00 11/13/17 22:00 (Peridex 0.12% Liq) 15 ml BID@08,20 MT 10/19/17 08:00 11/09/17 20:00 (Brethine Inj) 1 mg UNSCH PRN SQ 10/19/17 07:45 (Lactulose Liq) 30 ml DAILY PRN PO 10/23/17 21:30 Future Hold (D50w (Vial) Inj) 50 ml UNSCH PRN IV PUSH 10/24/17 21:00 (Glucagon Inj) 1 mg UNSCH PRN OTHER 10/24/17 21:00 (Levemir Inj) 5 units Q12HR SQ 10/25/17 10:00 11/14/17 09:39 (Norvasc) 10 mg DAILY PO 10/26/17 09:00 11/14/17 09:39 (Lovenox Inj) 40 mg Q24H SQ 10/26/17 08:00 11/14/17 09:39 (Protonix) 40 mg Q12HR PO 10/27/17 21:00 11/14/17 09:39 (Apresoline) 50 mg Q8HR PO 10/27/17 22:00 11/14/17 13:04 (NovoLOG SUPPLEMENTAL SCALE) 1 ACHS SLIDING SCALE SQ 10/27/17 17:00 11/14/17 12:00 (Mycostatin Powder) 1 applic Q12HR TOPICAL 10/27/17 21:00 11/14/17 09:40 (Ultram) 50 mg Q8H PRN PO 10/29/17 13:15 11/14/17 14:37 Pharmacy Profile Note 0 ml @ 0 mls/hr UNSCH OTHER 10/31/17 12:00 Ceftriaxone Sodium 2000 mg/ Sodium Chloride 100 ml @ 200 mls/hr Q24H IV 10/31/17 13:00 11/14/17 13:04 (Coreg) 6.25 mg Q12HR PO 11/02/17 21:00 11/14/17 09:39 (Xanax) 0.25 mg Q6HR PRN PO 11/03/17 12:30 11/13/17 22:07 (Tylenol) 325 mg Q4H PRN PO 11/03/17 18:45 11/12/17 05:21 (Questran 4 Gm Pkt) 4 gm DAILY PO 11/05/17 09:00 11/14/17 09:39 (Librium) 50 mg TID PRN PO 11/05/17 13:15 Vancomycin HCl 1500 mg/Sodium Chloride 515 ml @ 257.5 mls/ hr Q12H IV 11/06/17 22:00 11/14/17 09:40 (Lactinex) 1 tab Q12HR PO 11/07/17 21:00 11/14/17 09:39 (NS Flush) See Protocol DAILY IV FLUSH 11/11/17 09:00 11/14/17 09:41 (NS Flush) See Protocol UNSCH PRN IV FLUSH 11/10/17 18:00 (Heparin Central Flush) See Protocol DAILY IV FLUSH 11/11/17 09:00 11/14/17 09:41 (Heparin Central Flush) See Protocol UNSCH PRN IV FLUSH 11/10/17 18:00 11/14/17 00:27 (NS Flush) UNSCH PRN IV FLUSH 11/10/17 18:00 (Melatonin) 5 mg HS PRN PO 11/12/17 15:30 11/14/17 00:27 (Deltasone) 20 mg BID PO 11/12/17 21:00 11/14/17 09:39 Lines PICC no evidence of infection Past Medical History Depression/anxiety Hypertension NSAID use Allergies: Coded Allergies: No Known Allergies (Unverified Allergy, Unknown, 10/18/17) Objective . Vital Signs Date Time Temp Pulse Resp B/P (MAP) Pulse Ox O2 Delivery O2 Flow Rate FiO2 11/14/17 12:37 92 11/14/17 12:10 98.7 88 16 147/79 (101) 97 11/14/17 11:37 97 11/14/17 11:27 Room Air 11/14/17 08:20 Room Air 11/14/17 08:10 98.1 106 16 121/69 (86) 97 11/14/17 04:08 92 11/14/17 04:00 98.6 90 18 135/79 (97) 96 11/14/17 04:00 Room Air 11/14/17 00:00 99.1 102 18 126/65 (85) 97 11/14/17 00:00 Room Air 11/13/17 23:58 106 11/13/17 20:00 Room Air 11/13/17 20:00 99.7 101 18 140/70 (93) 97 11/13/17 19:58 104 11/13/17 16:19 99.0 97 17 133/72 (92) 97 11/13/17 16:00 98 . Microbiology Date/Time Source Procedure Growth Status 11/12/17 20:32 Blood Peripheral Aerobic Blood Culture - Preliminary NO GROWTH IN 2 DAYS Resulted 11/12/17 20:32 Blood Peripheral Anaerobic Blood Culture - Preliminary NO GROWTH IN 2 DAYS Resulted 11/12/17 20:20 Blood Peripheral Aerobic Blood Culture - Preliminary NO GROWTH IN 2 DAYS Resulted 11/12/17 20:20 Blood Peripheral Anaerobic Blood Culture - Preliminary NO GROWTH IN 2 DAYS Resulted Imaging Last 72 hours Impressions Abdomen/Pelvis CT 10/27/17 0000 Signed Impressions: CONCLUSION: 1. No evidence of retroperitoneal hemorrhage. 2. Bibasilar subsegmental airspace disease and small bilateral effusions. 3. Patchy areas of hypodensity throughout the liver and spleen of uncertain et iology. Considering patient's history a septic vascular embolic process should be considered. 4. Minimal air in the urinary bladder. 5. Developing anasarca. Chest X-Ray 10/26/17 0600 Signed Impressions: CONCLUSION: Diffuse consolidation likely related to diffuse underlying processes such as ed aaron or diffuse inflammatory change. Last 72 hours Impressions Chest X-Ray 10/24/17 0600 Signed Impressions: CONCLUSION: No significant change. Bilateral pulmonary opacities remain. Head CT 10/24/17 Signed Impressions: CONCLUSION: 1. No acute intracranial abnormality. Gall Bladder Ultrasound 10/23/17 Signed Impressions: CONCLUSION: 1. There is increased echogenicity of the liver suggestive of fatty infiltrati on and/or hepatocellular disease. 2. No evidence of gallstones or biliary tract obstruction. Chest X-Ray 10/23/17 Signed Impressions: CONCLUSION: Scattered bilateral pulmonary infiltrates. Last Impressions Gall Bladder Ultrasound 10/23/17 Signed Impressions: CONCLUSION: Chest X-Ray 10/23/17 Signed Impressions: CONCLUSION: Scattered bilateral pulmonary infiltrates. Renal Ultrasound 10/19/17 Signed Impressions: Service Date/Time: Thursday, October 19, 2017 09:46 - CONCLUSION: Normal examination. Alexx Baig MD Physical Exam GENERAL: Awake and alert, NAD. SKIN: Cool and dry. No generalized rash. HEAD: Atraumatic. Normocephalic. No temporal wasting, or tenderness. EYES: [place] conjunctiva. No petechia or hemorrhage. Has dirty sclera. EARS, NOSE AND THROAT: Nose without bleeding or purulent nasal discharge. Moist mucosa NECK: Trachea midline. Supple and not tender, no meningeal signs CARDIOVASCULAR: Regular rate and rhythm. No murmurs, rubs or gallops heard RESPIRATORY: Decreased BS at bases ABDOMEN: Distended, mild tenderness, not guarding, bowel sounds present and hypoactive. EXTREMITIES: Warm, has pitting edema. Has embolic lesions tip of 3 fingers on his R hand NEUROLOGICAL: Grossly non-focal PSYCHIATRIC: Calm and cooperative LINE: No evidence of infection Assessment & Plan Remarks IMPRESSION Possible sepsis on initial presentation with fevers, dec LOC, MOSF - better - source possible lung, has aishwarya nodular infiltrates, BC negative, no sputum C/S - possibly initial source is his endocarditis - he has been on Abx sonce 10/19 Has multiple embolic lesions, source? IE - his BC have been negative - SHASHI with small AV vegetation Endocarditis - C/S have been negative on admission - ?Culture negative endocarditis Aishwarya pulmonary infiltrates, etiology? - biopsy suggestive of eosinophilic PNA, organizing PNA DM, DKA Elevated CPK, resolved Elevated LFTs, improving Renal failure, resolved Acidosis, resolved Encephalopathy, ?metabolic, or COB SAWYER etiology, resolved Leukocytosis, improving Anemia, stable Fevers, better, ?due to thrombus - ?better due to steroids RECOMMENDATION Continue Rocephin Continue Vancomycin Plan to give Abx until November 29 Follow temps On steroids Monitor progress Seems clinically improving from ID standpoint Haley Sanchez MD Nov 14, 2017 15:18
--- NOTE | 2017-11-14 16:12 | HHI.HCPN ---
Reason for visit a. To assist with evaluation and management of symptoms including: fatigued , pain b. To assist medical decision maker(s) with: better understanding of current medical conditions; weighing benefits/burdens of medical treatment options; making medical treatment decisions. Subjective/Interval History Pt seen today to follow up on comfort,goals. S/p SHASHI, + small aortic vegetation. 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 HIV, Hep, HSV panels negative. CSF studies negative . Q fever, bartonella serology negative. Status post bronchoscopy, washings negative, cytology negative . ID following to remain on antibiotics until 11/29/17. PICC line has been placed to continue antibiotics possibly during rehabilitation. Most recent blood culture 11/12 no growth today. T-max 99.7. Case management working on discharge planning/placement. Still working to locate accepting facility. CXR 11/12 Patchy airspace disease in both lungs. Patient seen in room no visitors present. He is awake, oriented and appropriate. He remembers me from prior visits. He indicates he is feeling better overall no specific complaints today. Indicates appetite fair to good.He denies any GI complaints. He has been working with PT which indicates feels good to get up he feels he is fatigued easily, and has some persistent numbness and tingling to his right lower extremity but feels he is tolerating activity well. He wants to continue to work with therapies to improve his strength and endurance. He denies shortness of breath. He denies chest pain. Review with him recent diagnostics, cultures, cytology etc. Review with him discharge planning, case management notation regarding. He appears to have good understanding of conditions, clinical course and prognosis. He verbalizes he wishes to do whatever he needs to do to continue to improve he understands that he was gravely ill at one point and that he has made significant improvement. He wishes this improvement would happen faster. He has been in touch with his sisters although has not spoken to them in the last few days he requests I call them. I called them from his room on speaker phone conference call so that he could speak to them as well. We updated them on conditions, recent diagnostics, pathologies etc. all questions answered to the best of my ability. Review of discharge planning. They have questions about a "knot "on the back of his head they ask if I can look at it. They also request he received barrier prep to the blisters on his right fingers to help the skin until they heal. Palliative contact information provided I did examine posterior head for the area of concern they had--I note by lifting his hair there is a small area 2-3 cm slightly raised with a tiny 1 cm abrasion which is well healed and nearly gone appears this may have been a worse abrasion at some point but is now essentially healed. Lightly scabbed no drainage no erythema. Non-painful to exam. Benign. He also has the above- mentioned areas to the left third fourth and fifth digits, fingertips are dark black/purple in the appearance of a healed blood blister. Nontender. . Advance Directives Durable Power of Equipment Tech: Copy in medical record (Designates Dimitrios Castelan, but document does not arsalan Mediccal or Health Care decision making.) Advance Directive Specifics Date completed: 10/29/17 Health Care Surrogate(s): [facility] sister Kirsty Palomo, 2nd Valerie Palomo . Objective Vital Signs Date Time Temp Pulse Resp B/P (MAP) Pulse Ox O2 Delivery O2 Flow Rate FiO2 11/14/17 12:37 92 11/14/17 12:10 98.7 88 16 147/79 (101) 97 11/14/17 11:37 97 11/14/17 11:27 Room Air 11/14/17 08:20 Room Air 11/14/17 08:10 98.1 106 16 121/69 (86) 97 11/14/17 08:00 89 11/14/17 04:08 92 11/14/17 04:00 98.6 90 18 135/79 (97) 96 11/14/17 04:00 Room Air 11/14/17 00:00 99.1 102 18 126/65 (85) 97 11/14/17 00:00 Room Air 11/13/17 23:58 106 11/13/17 20:00 Room Air 11/13/17 20:00 99.7 101 18 140/70 (93) 97 11/13/17 19:58 104 11/13/17 16:19 99.0 97 17 133/72 (92) 97 Intake & Output 11/14/17 11/14/17 07:00 19:00 Intake Total 1990 ml 600 ml Output Total 2200 ml Balance -210 ml 600 ml Intake Oral 1440 ml IV Total 550 ml 600 ml Output Urine Total 2200 ml # Bowel Movements 1 Physical Exam CONSTITUTIONAL/GENERAL: This is an adequately nourished patient, alert, pleasant TUBES/LINES/DRAINS: PICC RUE HEAD:lifting his hair there is a small area 2-3 cm slightly raised with a tiny 1 cm abrasion which is well healed and nearly gone appears this may have been a worse abrasion at some point but is now essentially healed. Lightly scabbed no drainage no erythema. Non-painful to exam. Benign. SKIN: No jaundice, rashes, or lesions. skin warm/dry. Many tattoos to trunk, UE. lifting his hair there is a small area 2-3 cm slightly raised with a tiny 1 cm abrasion which is well healed and nearly gone appears this may have been a worse abrasion at some point but is now essentially healed. Lightly scabbed no drainage no erythema. Non-painful to exam. He also has areas to the left third fourth and fifth digits, fingertips are dark black/purple in the appearance of a healed blood blister. Nontender. CARDIOVASCULAR: Regular rate and rhythm , no murmur. No JVD. Peripheral pulses symmetric. No peripheral edema. RESPIRATORY/CHEST: Symmetric, unlabored respirations. On room air. Clear, diminished. GASTROINTESTINAL: Abdomen soft, round, non-tender, nondistended. No palpable masses. No guarding. Bowel sounds normoactive MUSCULOSKELETAL: Extremities without clubbing, cyanosis. No peripheral edema. NEUROLOGICAL: alert, oriented and appropriate. Appears to have reasonable insight to conditions and hospitalization. Weak, moves all 4 extremities with generalized weakness. + Decreased sensation to right lateral lower extremity, L5 -S1 region, has been ongoing PSYCHIATRIC:no evident anxiety or depression, slightly . Diagnostic Tests Laboratory Laboratory Tests Test 11/12/17 05:56 11/14/17 12:25 Creatinine 0.86 MG/DL (0.60-1.30) Estimat Glomerular Filtration Rate 119 ML/MIN (>89) Urine Color YELLOW (YELLW/STRAW) Urine Turbidity CLEAR (CLEAR) Urine pH 7.0 (5.0-8.5) Urine Specific [place] 1.008 (1.002-1.035) Urine Protein 30 mg/dL (NEG-TRACE) Urine Glucose (UA) NEG mg/dL (NEG) Urine Ketones NEG mg/dL (NEG) Urine Occult Blood NEG (NEG) Urine Nitrite NEG (NEG) Urine Bilirubin NEG (NEG) Urine Urobilinogen LESS THAN 2.0 MG/DL (LESS Urine Leukocyte Esterase TRACE (NEG) Urine RBC LESS THAN 1 /hpf (0-3) Urine WBC 6 /hpf (0-5) Urine Squamous Epithelial Cells 1 /hpf (0-5) Urine Hyaline Casts 6 /lpf (RARE) Urine Mucus FEW /lpf (OCC) Microscopic Urinalysis Comment CULT NOT INDICATED Result Diagram: 11/12/17 0556 Microbiology Microbiology Date/Time Source Procedure Growth Status 11/12/17 20:32 Blood Peripheral Aerobic Blood Culture - Preliminary NO GROWTH IN 2 DAYS Resulted 11/12/17 20:32 Blood Peripheral Anaerobic Blood Culture - Preliminary NO GROWTH IN 2 DAYS Resulted 11/12/17 20:20 Blood Peripheral Aerobic Blood Culture - Preliminary NO GROWTH IN 2 DAYS Resulted 11/12/17 20:20 Blood Peripheral Anaerobic Blood Culture - Preliminary NO GROWTH IN 2 DAYS Resulted Imaging Last Impressions Chest X-Ray 11/12/17 0000 Signed Impressions: CONCLUSION: PICC line in good position. Interval improvement. Lower Extremity Ultrasound 11/09/17 0000 Signed Impressions: CONCLUSION: 1. There is nonocclusive thrombus within the right common femoral vein. 2. The remaining veins of the right lower extremity are patent. Abdomen MRI 11/03/17 0000 Signed Impressions: CONCLUSION: 1. Nonspecific heterogeneous signal and enhancement pattern of the liver as de scribed above and not convincingly changed from the prior CT. This is not parti cularly masslike or with organized fluid. A transient phenomenon related to hep atomegaly and/or hepatocellular disease is thought most likely. Hepatic abscess es are considered unlikely. 2. Small spleen and it also has diffusely heterogeneous signal and enhancement . Acute or subacute superimposed on chronic splenic infarcts are considered mos t likely. No significant change from the CT. In addition, no particularly mass like area and also no evidence of organized fluid so splenic abscesses are cons idered less likely. Abdomen/Pelvis CT 10/27/17 0000 Signed Impressions: CONCLUSION: 1. No evidence of retroperitoneal hemorrhage. 2. Bibasilar subsegmental airspace disease and small bilateral effusions. 3. Patchy areas of hypodensity throughout the liver and spleen of uncertain et iology. Considering patient's history a septic vascular embolic process should be considered. 4. Minimal air in the urinary bladder. 5. Developing anasarca. Chest CT 10/25/17 Signed Impressions: CONCLUSION: 1. Multiple bilateral scattered interstitial and airspace infiltrates througho ut both lung yuen suggestive of some type of inflammatory process. 2. Abnormal appearance of the liver. Recommend CT scan of the abdomen with IV contrast for further evaluation. Brain MRI 10/25/17 Signed Impressions: CONCLUSION: 1. Unremarkable MRI examination of the brain. Specifically, no cerebral edema or diffusion abnormality to suggest encephalitis. Head CT 10/24/17 Signed Impressions: CONCLUSION: 1. No acute intracranial abnormality. Gall Bladder Ultrasound 10/23/17 Signed Impressions: CONCLUSION: 1. There is increased echogenicity of the liver suggestive of fatty infiltrati on and/or hepatocellular disease. 2. No evidence of gallstones or biliary tract obstruction. Renal Ultrasound 10/19/17 Signed Impressions: Service Date/Time: Thursday, October 19, 2017 09:46 - CONCLUSION: Normal examination. Alexx Baig MD Procedures Intubation 10/18. Central line placed 10/18. A line placement 10/19. Assessment and Plan Disease Oriented Problem List: (1) Sepsis (2) Arrhythmia Comment: V-Tach then cardiac arrest. (3) Lactic acidosis (4) Acute kidney injury (5) Acute encephalopathy (6) Acute respiratory failure Comment: bilateral pulmonary infiltrates (7) Hyperglycemia Symptom Scale: (1) Fatigue 0-10 Scale: Unable to quantify (2) Pain 0-10 Scale: 0 Pertinent Non-Medical Issues Psychosocial:recently in nursing home. He served in the [employer]. On disability Spiritual: unknown Legal: POA did not give power for health care decision making to pt's cousin. His children daughter and son has not been reachable. pt neuro status improving, now able to participate in decision making. has also surrogate designation naming his 2 sisters as surrogates. Patient father HAD been serving as proxy however he is now completed healthcare surrogate designation naming his sisters. Health care proxy is pt's Father StaciaDannye. Ethical issues impacting care:none Important Contacts Sister- [facility] Kirsty Palomo [phone] Sister Valerie Stacia, [facility] [phone] Geovanimaeve Palomo (father) [phone] We have made several attempts to contact pt's son and daughter and they have not been reasonably reachable. His adult Children Christofer Ryan and Arin Ryan has been estranged from patient Christofer Palomo [phone] (son) Dimitrios Castelan(cousin) [phone] and [phone] POA but only financial. Heather (aunt) [phone] Adali Castelan (cousin) [phone] -Denise Gould (significant other).[phone] Prognosis 42 year old male with came in with sepsis- with respiratory failure, hyperglycemia with dka, hypokalemia. On 10/19 coded V-tach . Prognosis is guarded and still remains critical, but pt clinical condition has improved. Code Status: Full Code Plan * Code= full code * decision making: pt neuro status improving, now able to participate in decision making. completed surrogate designation naming his 2 sisters as surrogates * Order placed for barrier film to be applied to right fingers blisters per family request * Symptoms- -- Pain- s/p cpr, intubation/extubation. Has indicated has hx chronic back pain, pain to legs "sharp pain " to feet. +today c/o abdominal pain/nausea ongoing during hospital course. he has prn tramadol; indicates this has been effective for him in the past. has 50mg Q 8 hr prn, has been using 2 doses per day-indicates is effective. Will cont to evaluate effectiveness/requirements -- fatigue- generalized weakness/deconditioning, ongoing infectious process; will need ongoing nutritional support, as well as PT, OT to maintain strength [fair to good p.o. intake generally eating 100% of at least 2 meals a day] * Goals of Treatment : Aggressive. Pt to have ongoing discussions with family regarding reintubation/ possible limitations on etc. open to ongoing conversations as clinical course evolves. Patient sisters and healthcare surrogate have been updated on his conditions and pending diagnostics etc. They are supportive of patient's wishes. * Palliative care will continue to follow during hospital course as condition evolves, to assist patient/decision-maker with understanding of medical conditions, weighing benefits/burdens of treatment options, for clarification of goals of treatment. Additionally will assist with any symptoms of palliative concern Time Spent Total Floor Time (mins): 30 (Chart review, PE, discussion with nursing, discussion with family/healthcare surrogate) Attestation To help prompt me to consider important information that might be impacting today's encounter and assessment, information from prior notes written by myself or my colleagues may have been "brought forward" into today's note. My signature on this note, however, is an attestation that I personally performed the exam, history, and/or decision-making noted today, and, unless otherwise indicated, the interactions with patient, family, and staff as well as the review of records all occurred today. I also attest that the listed assessment and stated plan reflect my best clinical judgment today based on the combination of historical information, prior notes, and today's exam/ interactions. When time spent is documented, it refers only to time spent today by the signer, or if indicated, combined time spent today by collaborating physician/nurse practitioner. Madhuri Weaver Nov 14, 2017 16:12
--- NOTE | 2017-11-14 16:45 | HHI.PR ---
Subjective Remarks Ambulating with physical therapy. Doing well. No chest pain. No fever or chills overnight. Objective Vitals Vital Signs Date Time Temp Pulse Resp B/P (MAP) Pulse Ox O2 Delivery O2 Flow Rate FiO2 11/14/17 12:37 92 11/14/17 12:10 98.7 88 16 147/79 (101) 97 11/14/17 11:37 97 11/14/17 11:27 Room Air 11/14/17 08:20 Room Air 11/14/17 08:10 98.1 106 16 121/69 (86) 97 11/14/17 08:00 89 11/14/17 04:08 92 11/14/17 04:00 98.6 90 18 135/79 (97) 96 11/14/17 04:00 Room Air 11/14/17 00:00 99.1 102 18 126/65 (85) 97 11/14/17 00:00 Room Air 11/13/17 23:58 106 11/13/17 20:00 Room Air 11/13/17 20:00 99.7 101 18 140/70 (93) 97 11/13/17 19:58 104 I/O 11/13/17 11/13/17 11/13/17 11/14/17 11/14/17 11/14/17 07:00 15:00 23:00 07:00 15:00 23:00 Intake Total 1600 ml 510 ml 940 ml 1990 ml 600 ml Output Total 2200 ml 1000 ml 2200 ml Balance -600 ml 510 ml -60 ml -210 ml 600 ml Intake Oral 1050 ml 940 ml 1440 ml IV Total 550 ml 510 ml 550 ml 600 ml Output Urine Total 2200 ml 1000 ml 2200 ml # Bowel Movements 1 1 1 Result Diagram: 11/12/17 0556 Imaging Last Impressions Chest X-Ray 11/12/17 0000 Signed Impressions: CONCLUSION: PICC line in good position. Interval improvement. Lower Extremity Ultrasound 11/09/17 0000 Signed Impressions: CONCLUSION: 1. There is nonocclusive thrombus within the right common femoral vein. 2. The remaining veins of the right lower extremity are patent. Abdomen MRI 11/03/17 0000 Signed Impressions: CONCLUSION: 1. Nonspecific heterogeneous signal and enhancement pattern of the liver as de scribed above and not convincingly changed from the prior CT. This is not parti cularly masslike or with organized fluid. A transient phenomenon related to hep atomegaly and/or hepatocellular disease is thought most likely. Hepatic abscess es are considered unlikely. 2. Small spleen and it also has diffusely heterogeneous signal and enhancement . Acute or subacute superimposed on chronic splenic infarcts are considered mos t likely. No significant change from the CT. In addition, no particularly mass like area and also no evidence of organized fluid so splenic abscesses are cons idered less likely. Abdomen/Pelvis CT 10/27/17 Signed Impressions: CONCLUSION: 1. No evidence of retroperitoneal hemorrhage. 2. Bibasilar subsegmental airspace disease and small bilateral effusions. 3. Patchy areas of hypodensity throughout the liver and spleen of uncertain et iology. Considering patient's history a septic vascular embolic process should be considered. 4. Minimal air in the urinary bladder. 5. Developing anasarca. Chest CT 10/25/17 Signed Impressions: CONCLUSION: 1. Multiple bilateral scattered interstitial and airspace infiltrates througho ut both lung yuen suggestive of some type of inflammatory process. 2. Abnormal appearance of the liver. Recommend CT scan of the abdomen with IV contrast for further evaluation. Brain MRI 10/25/17 Signed Impressions: CONCLUSION: 1. Unremarkable MRI examination of the brain. Specifically, no cerebral edema or diffusion abnormality to suggest encephalitis. Head CT 10/24/17 Signed Impressions: CONCLUSION: 1. No acute intracranial abnormality. Gall Bladder Ultrasound 10/23/17 Signed Impressions: CONCLUSION: 1. There is increased echogenicity of the liver suggestive of fatty infiltrati on and/or hepatocellular disease. 2. No evidence of gallstones or biliary tract obstruction. Renal Ultrasound 10/19/17 Signed Impressions: Service Date/Time: Thursday, October 19, 2017 09:46 - CONCLUSION: Normal examination. Alexx Baig MD Objective Remarks GENERAL: 42 yo M appears in NAD CARDIOVASCULAR: Regular rate and rhythm without murmurs, gallops, or rubs. RESPIRATORY: Breath sounds equal bilaterally. No accessory muscle use. GASTROINTESTINAL: Abdomen soft, non-tender, nondistended. MUSCULOSKELETAL: No cyanosis, or edema. BACK: Nontender without obvious deformity. No CVA tenderness. Date of Insertion: October 19, 2017 A/P Problem List: (1) Acute respiratory failure ICD Code: J96.00 - Acute respiratory failure, unspecified whether with hypoxia or hypercapnia (2) Acute encephalopathy ICD Code: G93.40 - Encephalopathy, unspecified Status: Acute (3) Normocytic anemia ICD Code: D64.9 - Anemia, unspecified (4) Lactic acidosis ICD Code: E87.2 - Acidosis Status: Acute (5) Hypoalbuminemia ICD Code: E88.09 - Other disorders of plasma-protein metabolism, not elsewhere classified (6) Hypophosphatemia ICD Code: E83.39 - Other disorders of phosphorus metabolism Status: Acute (7) Hypokalemia ICD Code: E87.6 - Hypokalemia Status: Acute (8) Hypermagnesemia ICD Code: E83.41 - Hypermagnesemia (9) Acute kidney injury ICD Code: N17.9 - Acute kidney failure, unspecified Status: Acute (10) Leukocytosis ICD Code: D72.829 - Elevated white blood cell count, unspecified Status: Acute (11) Hyponatremia ICD Code: E87.1 - Hypo-osmolality and hyponatremia Status: Acute (12) Hypertension ICD Code: I10 - Essential (primary) hypertension (13) Pyrexia ICD Code: R50.9 - Fever, unspecified Status: Acute (14) Depression ICD Code: F32.9 - Major depressive disorder, single episode, unspecified (15) Ketoacidosis due to secondary diabetes ICD Code: E13.10 - Other specified diabetes mellitus with ketoacidosis without coma Status: Acute (16) BMI 37.0-37.9, adult ICD Code: Z68.37 - Body mass index (BMI) 37.0-37.9, adult Status: Acute Assessment and Plan 42-year-old man with: Endocarditis, sepsis, fevers Patient has multiple embolic lesions, SHASHI shows aortic valve vegetation 0.7 x 0.8 cm Infectious disease recommends staying with Rocephin and vancomycin for now, patient will need antibiotics until possible November 29, 2017. Appreciate infectious disease consult Appreciate cardiology workup Hypertension Continue Norvasc, Coreg,and hydralazine. Anxiety Continue Xanax Acute hypoxic and hypercarbic respiratory failure Bilateral pulmonary infiltrate Extubated 10/24/2017, doing well on nasal cannula oxygen Pulmonology consulted for abnormalities on imaging Status post bronchoscopy 11/07/17 pending cytology and culture report Follow-up CHEST X-RAY November 07, 2017 showed significant improvement of aeration in the lungs Upper GI bleed Gastroenterology signed off Continue pantoprazole Right lower extremity pain Nonocclusive thrombus and currently on 40 subcu of Lovenox daily, discharge home on Eliquis when ready to leave the hospital Doppler + DVT Acute hyperglycemic state Continue sliding-scale insulin with Accu-Cheks Continue Levemir 5 U q12h, hemoglobin A1c 13. Diabetic diet Tinea cruris Continue nystatin Insomnia start melatonin hS DVT prophylaxis Lovenox DC plan: patient with endocarditis with spikes of fevers, needs IV abx. ID ff DC when improved and cleared by consultants. Problem Qualifiers (1) Acute respiratory failure: Qualified Codes: J96.01 - Acute respiratory failure with hypoxia; J96.02 - Acute respiratory failure with hypercapnia (2) Pyrexia: Qualified Codes: R50.9 - Fever, unspecified (3) Depression: Qualified Codes: F32.9 - Major depressive disorder, single episode, unspecified Shante Luke MD Nov 14, 2017 16:45
--- NOTE | 2017-11-14 18:17 | PD.ONC.PN ---
Subjective Subjective Remarks Denies chest pain or shortness of breath. Stool is still dark. Denies any abdominal pain. Objective Data Date Time Temp Pulse Resp B/P (MAP) Pulse Ox O2 Delivery O2 Flow Rate FiO2 11/14/17 17:17 97 Room Air 11/14/17 17:04 98.5 93 16 139/69 (92) 97 11/14/17 16:00 84 11/14/17 12:37 92 11/14/17 12:10 98.7 88 16 147/79 (101) 97 11/14/17 11:37 97 11/14/17 11:27 Room Air 11/14/17 08:20 Room Air 11/14/17 08:10 98.1 106 16 121/69 (86) 97 11/14/17 08:00 89 11/14/17 04:08 92 11/14/17 04:00 98.6 90 18 135/79 (97) 96 11/14/17 04:00 Room Air 11/14/17 00:00 99.1 102 18 126/65 (85) 97 11/14/17 00:00 Room Air 11/13/17 23:58 106 11/13/17 20:00 Room Air 11/13/17 20:00 99.7 101 18 140/70 (93) 97 11/13/17 19:58 104 11/14/17 11/14/17 11/14/17 07:00 15:00 23:00 Intake Total 1990 ml 600 ml Output Total 2200 ml Balance -210 ml 600 ml Result Diagram: 11/12/17 0556 Laboratory Results Laboratory Tests Test 11/14/17 12:25 Urine Color YELLOW Urine Turbidity CLEAR Urine pH 7.0 Urine Specific [place] 1.008 Urine Protein 30 mg/dL Urine Glucose (UA) NEG mg/dL Urine Ketones NEG mg/dL Urine Occult Blood NEG Urine Nitrite NEG Urine Bilirubin NEG Urine Urobilinogen LESS THAN 2.0 MG/DL Urine Leukocyte Esterase TRACE Urine RBC LESS THAN 1 /hpf Urine WBC 6 /hpf Urine Squamous Epithelial Cells 1 /hpf Urine Hyaline Casts 6 /lpf Urine Mucus FEW /lpf Microscopic Urinalysis Comment CULT NOT INDICATED Culture Results Microbiology Date/Time Source Procedure Growth Status 11/12/17 20:32 Blood Peripheral Aerobic Blood Culture - Preliminary NO GROWTH IN 2 DAYS Resulted 11/12/17 20:32 Blood Peripheral Anaerobic Blood Culture - Preliminary NO GROWTH IN 2 DAYS Resulted 11/12/17 20:20 Blood Peripheral Aerobic Blood Culture - Preliminary NO GROWTH IN 2 DAYS Resulted 11/12/17 20:20 Blood Peripheral Anaerobic Blood Culture - Preliminary NO GROWTH IN 2 DAYS Resulted Administered Medications Medications (Trade) Dose Ordered Sig/Jacky Route PRN Reason Start Time Stop Time Status Last Admin Dose Admin Sodium Chloride (NS Flush) 2 ml UNSCH PRN IV FLUSH FLUSH AFTER USING IV ACCESS 10/19/17 02:30 11/13/17 00:10 Sodium Chloride (NS Flush) 2 ml BID IV FLUSH 10/19/17 09:00 11/14/17 09:40 Albuterol Sulfate (Albuterol Neb) 2.5 mg Q2HR NEB PRN INH SOB/WHEEZING 10/19/17 02:30 10/24/17 08:36 [place] [place] 1 Q361D XX 10/19/17 02:30 10/19/17 02:30 Chlorhexidine Gluconate (Chlorhexidine 2% Cloth) Taper DAILY@04 TOP 10/19/17 04:00 10/15/18 03:59 10/27/17 04:00 Ondansetron HCl (Zofran Odt) 4 mg Q6H PRN PO NAUSEA OR VOMITING 10/19/17 02:30 10/29/17 23:44 Artificial Tears (Tears Naturale Opth Soln) 1 drop Q8HR EACH EYE 10/19/17 06:00 11/13/17 22:00 Chlorhexidine Gluconate (Peridex 0.12% Liq) 15 ml BID@08,20 MT 10/19/17 08:00 11/09/17 20:00 Insulin Detemir (Levemir Inj) 5 units Q12HR SQ 10/25/17 10:00 11/14/17 09:39 Amlodipine Besylate (Norvasc) 10 mg DAILY PO 10/26/17 09:00 11/14/17 09:39 Enoxaparin Sodium (Lovenox Inj) 40 mg Q24H SQ 10/26/17 08:00 11/14/17 09:39 Pantoprazole Sodium (Protonix) 40 mg Q12HR PO 10/27/17 21:00 11/14/17 09:39 Hydralazine HCl (Apresoline) 50 mg Q8HR PO 10/27/17 22:00 11/14/17 13:04 Insulin Aspart (NovoLOG SUPPLEMENTAL SCALE) 1 ACHS SLIDING SCALE SQ 10/27/17 17:00 11/14/17 12:00 Nystatin (Mycostatin Powder) 1 applic Q12HR TOPICAL 10/27/17 21:00 11/14/17 09:40 Tramadol HCl (Ultram) 50 mg Q8H PRN PO PAIN 5-10 10/29/17 13:15 11/14/17 14:37 Ceftriaxone Sodium 2000 mg/ Sodium Chloride 100 ml @ 200 mls/hr Q24H IV 10/31/17 13:00 11/14/17 13:04 Carvedilol (Coreg) 6.25 mg Q12HR PO 11/02/17 21:00 11/14/17 09:39 Alprazolam (Xanax) 0.25 mg Q6HR PRN PO anxiety 11/03/17 12:30 11/13/17 22:07 Acetaminophen (Tylenol) 325 mg Q4H PRN PO Fever > 100.4 11/03/17 18:45 11/12/17 05:21 Cholestyramine Resin (Questran 4 Gm Pkt) 4 gm DAILY PO 11/05/17 09:00 11/14/17 09:39 Vancomycin HCl 1500 mg/Sodium Chloride 515 ml @ 257.5 mls/ hr Q12H IV 11/06/17 22:00 11/14/17 09:40 Lactobacillus Acidophilus (Lactinex) 1 tab Q12HR PO 11/07/17 21:00 11/14/17 09:39 Sodium Chloride (NS Flush) See Protocol DAILY IV FLUSH 11/11/17 09:00 11/14/17 09:41 Heparin Sodium (Porcine) (Heparin Central Flush) See Protocol DAILY IV FLUSH 11/11/17 09:00 11/14/17 09:41 Heparin Sodium (Porcine) (Heparin Central Flush) See Protocol UNSCH PRN IV FLUSH SEE PROTOCOL TABLE 11/10/17 18:00 11/14/17 00:27 Melatonin (Melatonin) 5 mg HS PRN PO INSOMNIA 11/12/17 15:30 11/14/17 00:27 Prednisone (Deltasone) 20 mg BID PO 11/12/17 21:00 11/14/17 09:39 Objective Remarks GENERAL: Well-nourished, well-developed patient. Stronger. SKIN: Warm and dry. HEAD: Normocephalic. EYES: No scleral icterus. No injection or drainage. NECK: Supple, trachea midline. No JVD or lymphadenopathy. LYMPHATIC: No adenopathy. CARDIOVASCULAR: Regular rate and rhythm without murmurs. RESPIRATORY: Breath sounds equal bilaterally. No accessory muscle use. GASTROINTESTINAL: Abdomen soft, non-tender, nondistended. EXTREMITIES: No cyanosis, or edema. MUSCULOSKELETAL: Adequate muscle tone. NEUROLOGICAL: No obvious focal deficit. Awake, alert, and oriented x3. PSYCHIATRIC: Appropriate mood and affect; insight and judgment normal. Assessment/Plan Problem List: (1) Microcytic anemia ICD Codes: D50.9 - Iron deficiency anemia, unspecified Plan: --Likely multifactorial due to sepsis +inflammation --Iron studies were done after patient received blood transfusions--> difficult to interpret. --No sign of hemolysis --hemoglobin electrophoresis showed sickle cell trait. --SPEP shows no monoclonal protein. (2) Sepsis ICD Codes: A41.9 - Sepsis, unspecified organism Plan: --SHASHI shows mitral valve regurgitation, aortic valve regurgitation and vegetation --ID following --Blood cultures have been negative so far Assessment 42 y/o male admitted with DKA and sepsis; hematology consulted for anemia Plan 1. Check CBC 2. continue supportive care Presley Lux MD Nov 14, 2017 18:17
--- NOTE | 2017-11-14 20:55 | HHI.PR ---
Subjective Remarks 42 YOAA male with Bipolar disorder, Lung infilt, fever Denies sob no CP BX Organising Pn, eiosinophilic pn Breathing better On RA, ambulates Objective Vital Signs Vital Signs Date Time Temp Pulse Resp B/P (MAP) Pulse Ox O2 Delivery O2 Flow Rate FiO2 11/14/17 17:17 97 Room Air 11/14/17 17:04 98.5 93 16 139/69 (92) 97 11/14/17 16:00 84 11/14/17 12:37 92 11/14/17 12:10 98.7 88 16 147/79 (101) 97 11/14/17 11:37 97 11/14/17 11:27 Room Air 11/14/17 08:20 Room Air 11/14/17 08:10 98.1 106 16 121/69 (86) 97 11/14/17 08:00 89 11/14/17 04:08 92 11/14/17 04:00 98.6 90 18 135/79 (97) 96 11/14/17 04:00 Room Air 11/14/17 00:00 99.1 102 18 126/65 (85) 97 11/14/17 00:00 Room Air 11/13/17 23:58 106 I/O 11/13/17 11/13/17 11/13/17 11/14/17 11/14/17 11/14/17 07:00 15:00 23:00 07:00 15:00 23:00 Intake Total 1600 ml 510 ml 940 ml 1990 ml 600 ml 460 ml Output Total 2200 ml 1000 ml 2200 ml 2600 ml Balance -600 ml 510 ml -60 ml -210 ml 600 ml -2140 ml Intake Oral 1050 ml 940 ml 1440 ml 460 ml IV Total 550 ml 510 ml 550 ml 600 ml Output Urine Total 2200 ml 1000 ml 2200 ml 2600 ml # Bowel Movements 1 1 1 3 Result Diagram: 11/12/17 0556 Objective Remarks GENERAL: WBWN AA male, NAD SKIN: Warm and dry. HEAD: Normocephalic. EYES: No scleral icterus. No injection or drainage. NECK: Supple, trachea midline. No JVD or lymphadenopathy. CARDIOVASCULAR: Regular rate and rhythm without murmurs, gallops, or rubs. RESPIRATORY: Breath sounds equal bilaterally. No accessory muscle use. GASTROINTESTINAL: Abdomen soft, non-tender, nondistended. MUSCULOSKELETAL: No cyanosis, or edema. BACK: Nontender without obvious deformity. No CVA tenderness. A/P Assessment and Plan IMPRESSION: 1. Bilateral lung infiltrate with ongoing fever. He has been treated with antibiotic. Cultures have been negative. Possibility of inflammatory process of the lung or alveolitis. 2. Diabetes mellitus. 3. Renal insufficiency has improved. 4. Benign prostatic hypertrophy. 5. Bipolar disorder. 6. Organising Pn, eiosinophilic Pn PLAN: Cont Abx per ID Check BAL, Bx results DW Pt PO Steroids Stable from Pulm standpoint Han Gonsalves MD Nov 14, 2017 20:55
[2017-11-14] MEDS: ALPRAZolam 0.25 MG TAB PO PRN (22:14)
[2017-11-15] VITALS (10 sets, daily range): BP systolic 117–147; BP diastolic 67–83; PULSE 86–99; RESP 16–20; TEMP 98.5–99.1; O2SAT 96–99
[2017-11-15] MEDS: MELATONIN 5 MG TAB PO PRN ×2 (00:40→23:40)
[2017-11-15] MEDS: CHLORHEXIDINE GLUCONATE 2 % 1 PACK (2 CLOTHS) TOP SCH (02:48)
[2017-11-15 05:49] LABS: BASOPHIL # 0.2 TH/MM3 (0-0.2); BASOPHIL % 1.2 % (0.0-2.0); EOSINOPHIL % 0.1 % (0.0-4.0); HEMATOCRIT 27.7 % (39.0-51.0); HEMOGLOBIN 9.2 GM/DL (13.0-17.0); LYMPH % 9.8 % (9.0-44.0); LYMPHOCYTE # 1.6 TH/MM3 (1.0-4.8); MEAN CELL VOLUME 79.7 FL (80.0-100.0); MEAN CORPUSCULAR HEMOGLOBIN 26.4 PG (27.0-34.0); MEAN CORPUSCULAR HGB CONC 33.1 % (32.0-36.0); MEAN PLATELET VOLUME 8.1 FL (7.0-11.0); MONO % 6.8 % (0.0-8.0); MONOCYTE # 1.1 TH/MM3 (0-0.9); NEUT % 82.1 % (16.0-70.0); PLATELET COUNT 603 TH/MM3 (150-450); RED BLOOD COUNT 3.48 MIL/MM3 (4.50-5.90); RED CELL DISTRIBUTION WIDTH 15.7 % (11.6-17.2); WHITE BLOOD COUNT 15.8 TH/MM3 (4.0-11.0)
[2017-11-15] MEDS: hydrALAZINE HCL 50 MG TAB PO SCH ×3 (06:00→23:41)
[2017-11-15] MEDS: ARTIFICIAL TEARS OPTH SOLN 15 ML BTL EACH EYE SCH ×3 (06:00→22:00)
--- NOTE | 2017-11-15 07:27 | PD.ONC.PN ---
Subjective Subjective Remarks Patient denies any chest pain or shortness of breath. He still has dark colored stool. He has mild abdominal pain. Objective Data Date Time Temp Pulse Resp B/P (MAP) Pulse Ox O2 Delivery O2 Flow Rate FiO2 11/15/17 03:54 92 11/15/17 00:25 99.1 95 20 136/72 (93) 96 11/14/17 23:57 91 11/14/17 20:58 98.9 88 20 137/78 (97) 99 11/14/17 20:30 Room Air 11/14/17 19:59 97 11/14/17 17:17 97 Room Air 11/14/17 17:04 98.5 93 16 139/69 (92) 97 11/14/17 16:00 84 11/14/17 12:37 92 11/14/17 12:10 98.7 88 16 147/79 (101) 97 11/14/17 11:37 97 11/14/17 11:27 Room Air 11/14/17 08:20 Room Air 11/14/17 08:10 98.1 106 16 121/69 (86) 97 11/14/17 08:00 89 11/15/17 11/15/17 11/15/17 07:00 15:00 23:00 Intake Total 480 ml Output Total 2250 ml Balance -1770 ml Result Diagram: 11/15/17 0505 11/12/17 0556 Laboratory Results Laboratory Tests Test 11/14/17 12:25 11/15/17 05:05 Urine Color YELLOW Urine Turbidity CLEAR Urine pH 7.0 Urine Specific [place] 1.008 Urine Protein 30 mg/dL Urine Glucose (UA) NEG mg/dL Urine Ketones NEG mg/dL Urine Occult Blood NEG Urine Nitrite NEG Urine Bilirubin NEG Urine Urobilinogen LESS THAN 2.0 MG/DL Urine Leukocyte Esterase TRACE Urine RBC LESS THAN 1 /hpf Urine WBC 6 /hpf Urine Squamous Epithelial Cells 1 /hpf Urine Hyaline Casts 6 /lpf Urine Mucus FEW /lpf Microscopic Urinalysis Comment CULT NOT INDICATED White Blood Count 15.8 TH/MM3 Red Blood Count 3.48 MIL/MM3 Hemoglobin 9.2 GM/DL Hematocrit 27.7 % Mean Corpuscular Volume 79.7 FL Mean Corpuscular Hemoglobin 26.4 PG Mean Corpuscular Hemoglobin Concent 33.1 % Red Cell Distribution Width 15.7 % Platelet Count 603 TH/MM3 Mean Platelet Volume 8.1 FL Neutrophils (%) (Auto) 82.1 % Lymphocytes (%) (Auto) 9.8 % Monocytes (%) (Auto) 6.8 % Eosinophils (%) (Auto) 0.1 % Basophils (%) (Auto) 1.2 % Neutrophils # (Auto) 13.0 TH/MM3 Lymphocytes # (Auto) 1.6 TH/MM3 Monocytes # (Auto) 1.1 TH/MM3 Eosinophils # (Auto) 0.0 TH/MM3 Basophils # (Auto) 0.2 TH/MM3 CBC Comment DIFF FINAL Differential Comment Culture Results Microbiology Date/Time Source Procedure Growth Status 11/12/17 20:32 Blood Peripheral Aerobic Blood Culture - Preliminary NO GROWTH IN 2 DAYS Resulted 11/12/17 20:32 Blood Peripheral Anaerobic Blood Culture - Preliminary NO GROWTH IN 2 DAYS Resulted 11/12/17 20:20 Blood Peripheral Aerobic Blood Culture - Preliminary NO GROWTH IN 2 DAYS Resulted 11/12/17 20:20 Blood Peripheral Anaerobic Blood Culture - Preliminary NO GROWTH IN 2 DAYS Resulted Administered Medications Medications (Trade) Dose Ordered Sig/Jacky Route PRN Reason Start Time Stop Time Status Last Admin Dose Admin Sodium Chloride (NS Flush) 2 ml UNSCH PRN IV FLUSH FLUSH AFTER USING IV ACCESS 10/19/17 02:30 11/13/17 00:10 Sodium Chloride (NS Flush) 2 ml BID IV FLUSH 10/19/17 09:00 11/14/17 22:15 Albuterol Sulfate (Albuterol Neb) 2.5 mg Q2HR NEB PRN INH SOB/WHEEZING 10/19/17 02:30 10/24/17 08:36 Miscellaneous Information ([facility] [place] Nursing Information) 1 Q361D XX 10/19/17 02:30 10/19/17 02:30 Chlorhexidine Gluconate (Chlorhexidine 2% Cloth) Taper DAILY@04 TOP 10/19/17 04:00 10/15/18 03:59 10/27/17 04:00 Ondansetron HCl (Zofran Odt) 4 mg Q6H PRN PO NAUSEA OR VOMITING 10/19/17 02:30 10/29/17 23:44 Artificial Tears (Tears Naturale Opth Soln) 1 drop Q8HR EACH EYE 10/19/17 06:00 11/15/17 06:00 Chlorhexidine Gluconate (Peridex 0.12% Liq) 15 ml BID@08,20 MT 10/19/17 08:00 11/09/17 20:00 Insulin Detemir (Levemir Inj) 5 units Q12HR SQ 10/25/17 10:00 11/14/17 21:00 Amlodipine Besylate (Norvasc) 10 mg DAILY PO 10/26/17 09:00 11/14/17 09:39 Enoxaparin Sodium (Lovenox Inj) 40 mg Q24H SQ 10/26/17 08:00 11/14/17 09:39 Pantoprazole Sodium (Protonix) 40 mg Q12HR PO 10/27/17 21:00 11/14/17 22:14 Hydralazine HCl (Apresoline) 50 mg Q8HR PO 10/27/17 22:00 11/15/17 06:00 Insulin Aspart (NovoLOG SUPPLEMENTAL SCALE) 1 ACHS SLIDING SCALE SQ 10/27/17 17:00 11/14/17 12:00 Nystatin (Mycostatin Powder) 1 applic Q12HR TOPICAL 10/27/17 21:00 11/14/17 21:00 Tramadol HCl (Ultram) 50 mg Q8H PRN PO PAIN 5-10/29/17 13:15 11/14/17 14:37 Ceftriaxone Sodium 2000 mg/ Sodium Chloride 100 ml @ 200 mls/hr Q24H IV 10/31/17 13:00 11/14/17 13:04 Carvedilol (Coreg) 6.25 mg Q12HR PO 11/02/17 21:00 11/14/17 22:14 Alprazolam (Xanax) 0.25 mg Q6HR PRN PO anxiety 11/03/17 12:30 11/14/17 22:14 Acetaminophen (Tylenol) 325 mg Q4H PRN PO Fever > 100.4 11/03/17 18:45 11/12/17 05:21 Cholestyramine Resin (Questran 4 Gm Pkt) 4 gm DAILY PO 11/05/17 09:00 11/14/17 09:39 Vancomycin HCl 1500 mg/Sodium Chloride 515 ml @ 257.5 mls/ hr Q12H IV 11/06/17 22:00 11/14/17 22:13 Lactobacillus Acidophilus (Lactinex) 1 tab Q12HR PO 11/07/17 21:00 11/14/17 22:14 Sodium Chloride (NS Flush) See Protocol DAILY IV FLUSH 11/11/17 09:00 11/14/17 09:41 Heparin Sodium (Porcine) (Heparin Central Flush) See Protocol DAILY IV FLUSH 11/11/17 09:00 11/14/17 09:41 Heparin Sodium (Porcine) (Heparin Central Flush) See Protocol UNSCH PRN IV FLUSH SEE PROTOCOL TABLE 11/10/17 18:00 11/14/17 00:27 Melatonin (Melatonin) 5 mg HS PRN PO INSOMNIA 11/12/17 15:30 11/15/17 00:40 Prednisone (Deltasone) 20 mg BID PO 11/12/17 21:00 11/14/17 22:14 Objective Remarks GENERAL: Well-nourished, well-developed patient. SKIN: Warm and dry. HEAD: Normocephalic. EYES: No scleral icterus. No injection or drainage. NECK: Supple, trachea midline. No JVD or lymphadenopathy. LYMPHATIC: No adenopathy. CARDIOVASCULAR: Regular rate and rhythm without murmurs. RESPIRATORY: Breath sounds equal bilaterally. No accessory muscle use. GASTROINTESTINAL: Abdomen soft, non-tender, nondistended. EXTREMITIES: No cyanosis, or edema. MUSCULOSKELETAL: Adequate muscle tone. NEUROLOGICAL: No obvious focal deficit. Awake, alert, and oriented x3. PSYCHIATRIC: Appropriate mood and affect; insight and judgment normal. Assessment/Plan Problem List: (1) Microcytic anemia ICD Codes: D50.9 - Iron deficiency anemia, unspecified Plan: --Hemoglobin has trended up to 9.2. --Likely multifactorial due to sepsis +inflammation and underlying sickle cell trait. --Iron studies were done after patient received blood transfusions--> difficult to interpret. --No sign of hemolysis --hemoglobin electrophoresis showed sickle cell trait. --SPEP shows no monoclonal protein. (2) Sepsis ICD Codes: A41.9 - Sepsis, unspecified organism Plan: --SHASHI shows mitral valve regurgitation, aortic valve regurgitation and vegetation --ID following --Blood cultures have been negative so far (3) Leukocytosis ICD Codes: D72.829 - Elevated white blood cell count, unspecified Status: Acute Plan: Due to inflammatory process and steroid. WBC is stable. (4) Thrombocytosis ICD Codes: D47.3 - Essential (hemorrhagic) thrombocythemia Status: Acute Plan: Due to underlying inflammatory process. Platelet count has trended down slightly. Assessment 42 y/o male admitted with DKA and sepsis; hematology consulted for anemia Plan 1. Monitor CBC periodically. 2. continue supportive care Presley Lux MD Nov 15, 2017 07:27
[2017-11-15] MEDS: ENOXAPARIN SODIUM 40 MG/0.4 ML SYRINGE SQ SCH (08:00)
[2017-11-15] MEDS: CHLORHEXIDINE 0.12% (ORAL KIT) 15 ML CUP MT SCH ×2 (08:00→20:00)
[2017-11-15] MEDS: INSULIN ASPART SUPPLEMENTAL SCALE SQ SCH ×4 (08:00→21:00)
[2017-11-15] MEDS: SODIUM CHLORIDE 0.9% FLUSH 10 ML FLUSH IV FLUSH SCH ×3 (09:00→23:41)
[2017-11-15] MEDS: PANTOPRAZOLE SOD 40 MG DELAYED RELEASE TAB PO SCH ×2 (09:04→23:40)
[2017-11-15] MEDS: CARVEDILOL 6.25 MG TAB PO SCH ×2 (09:04→23:40)
[2017-11-15] MEDS: CHOLESTYRAMINE 4 GM PACKET PO SCH (09:04)
[2017-11-15] MEDS: predniSONE 20 MG TAB PO SCH ×2 (09:04→23:41)
[2017-11-15] MEDS: LACTOBACILLUS ACIDOPHILUS TAB PO SCH ×2 (09:05→23:40)
[2017-11-15] MEDS: INSULIN DETEMIR 100 UNITS/ML VIAL SQ SCH ×2 (09:05→21:00)
[2017-11-15] MEDS: NYSTATIN 100,000 U/GM PWD 15 GM BTL TOPICAL SCH ×2 (09:06→23:42)
[2017-11-15] MEDS ORDERED: PHARMACY ORDERED LAB ONE (09:45)
[2017-11-15] MEDS: VANCOMYCIN 1,500 MG/NS 500 ML IV SCH ×4 (09:57→23:40)
--- NOTE | 2017-11-15 09:59 | RADRPT ---
EXAM DATE: 11/15/2017 9:36 AM EDT AGE/SEX: 42 years / Male INDICATIONS: Evaluate short of breath. CLINICAL DATA: This is the patient's subsequent encounter. Patient reports that signs and symptoms h ave been present for 1 month and indicates a pain score of 0/10. MEDICAL/SURGICAL HISTORY: Diabetes mellitus type II. None. COMPARISON: [facility] [place], CHEST PA & LAT, 11/12/2017. . FINDINGS: There is improved aeration of the lungs compared to previous examination. Mild scattered infiltrates are noted. Shrapnel is again noted overlying the right chest. A right sided PICC line has its tip at the junction of superior vena cava and right atrium. The heart is stable. CONCLUSION: 1. Improved aeration of the lungs compared to the previous examination with mild scattered infiltrat es still noted. Electronically signed by: Leland Mahre MD 11/15/2017 9:58 AM EDT
[2017-11-15 10:50] LABS: CREATININE 0.93 MG/DL (0.60-1.30)
[2017-11-15 10:51] LABS: VANCOMYCIN TROUGH 14.8 MCG/ML (5.0-10.0)
[2017-11-15] MEDS: cefTRIAXone INJ 2,000 MG in SODIUM CHLORIDE 0.9% INJ 100 ML IV SCH (13:41)
--- NOTE | 2017-11-15 14:42 | HHI.IDPN ---
Subjective Subjective Remarks Patient is a 42-year-old male, brought into the hospital for evaluation of multiple symptoms. He apparently has been having problem with poor p.o. intake , and thirst and increasing fluid intake. There is also mention that he has had problem with nausea and vomiting and some confusion. The symptoms have been going on for about a month. Was brought into the emergency room, and he was found to have a blood sugar of 1800, creatinine was up to 3, sodium 21, and he has multiple abnormal electrolytes. He also had acidosis, and high fevers. His white count was elevated. In the ED he became more unresponsive, and he ended up getting intubated. He was initially on pressors. He was also found to have a very elevated CPK. His electrolytes stabilized, and his acidosis improved. Creatinine improved, and he has improvement in his urine output. He had 2 blood cultures done and those are negative. He was started on empiric antibiotics for possible aspiration. Initial urinalysis was unremarkable. Patient remains on the vent. His mental status still has not improved. Neurology has been consulted. Patient's temperatures seem to have improved. His chest x-ray showing bilateral pulmonary infiltrates and some nodular infiltrates. He has been getting vancomycin, cefepime, and Flagyl. His CPKs are still elevated, and his LFTs were also elevated. Patient also during his hospitalization had episode of V. tach and was resuscitated successfully. Infectious disease consultation has been requested to evaluate patient with high fevers. Notes reviewed Temps ok Good sats on RA No new complaints Has non-occlusive thrombus R CFV On steroids per pulmonary Bronch C/S negative Cytology no malignancy Biopsy suggestive of eosinophilic pneumonia CXR today with some improvement in infiltrates Qfever negative Bartonella negative SHASHI has vegetation small in AV HIV negative Hepatitis negative Antibiotics Rocephin Vancomycin Current Medication Medications (Trade) Dose Ordered Sig/Jacky Route Start Time Stop Time Status Last Admin (NS Flush) 2 ml UNSCH PRN IV FLUSH 10/19/17 02:30 11/13/17 00:10 (NS Flush) 2 ml BID IV FLUSH 10/19/17 09:00 11/15/17 09:05 (Albuterol Neb) 2.5 mg Q2HR NEB PRN INH 10/19/17 02:30 10/24/17 08:36 ([facility]) 1 Q361D XX 10/19/17 02:30 10/19/17 02:30 (Chlorhexidine 2% Cloth) Taper DAILY@04 TOP 10/19/17 04:00 10/15/18 03:59 10/27/17 04:00 (Chlorhexidine 2% Cloth) 3 pack UNSCH PRN TOP 10/19/17 02:30 (Milk Of Magnesia Liq) 30 ml Q12H PRN PO 10/19/17 02:30 Future Hold (Senokot) 17.2 mg Q12H PRN PO 10/19/17 02:30 Future Hold (Dulcolax Supp) 10 mg DAILY PRN RECTAL 10/19/17 02:30 (Zofran Odt) 4 mg Q6H PRN PO 10/19/17 02:30 10/29/17 23:44 (Tears Naturale Opth Soln) 1 drop Q8HR EACH EYE 10/19/17 06:00 11/15/17 06:00 (Peridex 0.12% Liq) 15 ml BID@08,20 MT 10/19/17 08:00 11/09/17 20:00 (Brethine Inj) 1 mg UNSCH PRN SQ 10/19/17 07:45 (Lactulose Liq) 30 ml DAILY PRN PO 10/23/17 21:30 Future Hold (D50w (Vial) Inj) 50 ml UNSCH PRN IV PUSH 10/24/17 21:00 (Glucagon Inj) 1 mg UNSCH PRN OTHER 10/24/17 21:00 (Levemir Inj) 5 units Q12HR SQ 10/25/17 10:00 11/15/17 09:05 (Norvasc) 10 mg DAILY PO 10/26/17 09:00 11/15/17 09:05 (Lovenox Inj) 40 mg Q24H SQ 10/26/17 08:00 11/14/17 09:39 (Protonix) 40 mg Q12HR PO 10/27/17 21:00 11/15/17 09:04 (Apresoline) 50 mg Q8HR PO 10/27/17 22:00 11/15/17 13:41 (NovoLOG SUPPLEMENTAL SCALE) 1 ACHS SLIDING SCALE SQ 10/27/17 17:00 11/14/17 12:00 (Mycostatin Powder) 1 applic Q12HR TOPICAL 10/27/17 21:00 11/15/17 09:06 (Ultram) 50 mg Q8H PRN PO 10/29/17 13:15 11/14/17 14:37 Pharmacy Profile Note 0 ml @ 0 mls/hr UNSCH OTHER 10/31/17 12:00 Ceftriaxone Sodium 2000 mg/ Sodium Chloride 100 ml @ 200 mls/hr Q24H IV 10/31/17 13:00 11/15/17 13:41 (Coreg) 6.25 mg Q12HR PO 11/02/17 21:00 11/15/17 09:04 (Xanax) 0.25 mg Q6HR PRN PO 11/03/17 12:30 11/14/17 22:14 (Tylenol) 325 mg Q4H PRN PO 11/03/17 18:45 11/12/17 05:21 (Questran 4 Gm Pkt) 4 gm DAILY PO 11/05/17 09:00 11/15/17 09:04 (Librium) 50 mg TID PRN PO 11/05/17 13:15 Vancomycin HCl 1500 mg/Sodium Chloride 515 ml @ 257.5 mls/ hr Q12H IV 11/06/17 22:00 11/15/17 09:57 (Lactinex) 1 tab Q12HR PO 11/07/17 21:00 11/15/17 09:05 (NS Flush) See Protocol DAILY IV FLUSH 11/11/17 09:00 11/14/17 09:41 (NS Flush) See Protocol UNSCH PRN IV FLUSH 11/10/17 18:00 (Heparin Central Flush) See Protocol DAILY IV FLUSH 11/11/17 09:00 11/15/17 09:05 (Heparin Central Flush) See Protocol UNSCH PRN IV FLUSH 11/10/17 18:00 11/14/17 00:27 (NS Flush) UNSCH PRN IV FLUSH 11/10/17 18:00 (Melatonin) 5 mg HS PRN PO 11/12/17 15:30 11/15/17 00:40 (Deltasone) 20 mg BID PO 11/12/17 21:00 11/15/17 09:04 ([facility] Ordered Lab Info) SPECIFIC LAB TO BE DRAWN:VANCO TROUGH DATE TO... ONCE ONCE .XX 6/19/18 09:45 11/20/17 09:46 Lines PICC no evidence of infection Past Medical History Depression/anxiety Hypertension NSAID use Allergies: Coded Allergies: No Known Allergies (Unverified Allergy, Unknown, 10/18/17) Objective . Vital Signs Date Time Temp Pulse Resp B/P (MAP) Pulse Ox O2 Delivery O2 Flow Rate FiO2 11/15/17 12:29 98.5 90 17 132/76 (94) 96 11/15/17 08:11 99.0 98 17 147/83 (104) 99 11/15/17 08:00 91 11/15/17 08:00 Room Air 11/15/17 03:54 92 11/15/17 00:25 99.1 95 20 136/72 (93) 96 11/14/17 23:57 91 11/14/17 20:58 98.9 88 20 137/78 (97) 99 11/14/17 20:30 Room Air 11/14/17 19:59 97 11/14/17 17:17 97 Room Air 11/14/17 17:04 98.5 93 16 139/69 (92) 97 11/14/17 16:00 84 . Laboratory Tests Test 11/15/17 05:05 White Blood Count 15.8 TH/MM3 Red Blood Count 3.48 MIL/MM3 Hemoglobin 9.2 GM/DL Hematocrit 27.7 % Mean Corpuscular Volume 79.7 FL Mean Corpuscular Hemoglobin 26.4 PG Mean Corpuscular Hemoglobin Concent 33.1 % Red Cell Distribution Width 15.7 % Platelet Count 603 TH/MM3 Mean Platelet Volume 8.1 FL Neutrophils (%) (Auto) 82.1 % Lymphocytes (%) (Auto) 9.8 % Monocytes (%) (Auto) 6.8 % Eosinophils (%) (Auto) 0.1 % Basophils (%) (Auto) 1.2 % Neutrophils # (Auto) 13.0 TH/MM3 Lymphocytes # (Auto) 1.6 TH/MM3 Monocytes # (Auto) 1.1 TH/MM3 Eosinophils # (Auto) 0.0 TH/MM3 Basophils # (Auto) 0.2 TH/MM3 CBC Comment DIFF FINAL Differential Comment Laboratory Tests Test 11/15/17 09:55 Creatinine 0.93 MG/DL Estimat Glomerular Filtration Rate 109 ML/MIN Microbiology Date/Time Source Procedure Growth Status 11/12/17 20:32 Blood Peripheral Aerobic Blood Culture - Preliminary NO GROWTH IN 3 DAYS Resulted 11/12/17 20:32 Blood Peripheral Anaerobic Blood Culture - Preliminary NO GROWTH IN 3 DAYS Resulted 11/12/17 20:20 Blood Peripheral Aerobic Blood Culture - Preliminary NO GROWTH IN 3 DAYS Resulted 11/12/17 20:20 Blood Peripheral Anaerobic Blood Culture - Preliminary NO GROWTH IN 3 DAYS Resulted Imaging Chest X-Ray 11/15/17 Signed Impressions: CONCLUSION: 1. Improved aeration of the lungs compared to the previous examination with mi ld scattered infiltrates still noted. Lower Extremity Ultrasound 11/09/17 Signed Impressions: CONCLUSION: 1. There is nonocclusive thrombus within the right common femoral vein. 2. The remaining veins of the right lower extremity are patent. Abdomen MRI 11/03/17 Signed Impressions: CONCLUSION: 1. Nonspecific heterogeneous signal and enhancement pattern of the liver as de scribed above and not convincingly changed from the prior CT. This is not parti cularly masslike or with organized fluid. A transient phenomenon related to hep atomegaly and/or hepatocellular disease is thought most likely. Hepatic abscess es are considered unlikely. 2. Small spleen and it also has diffusely heterogeneous signal and enhancement . Acute or subacute superimposed on chronic splenic infarcts are considered mos t likely. No significant change from the CT. In addition, no particularly mass like area and also no evidence of organized fluid so splenic abscesses are cons idered less likely. Abdomen/Pelvis CT 10/27/17 Signed Impressions: CONCLUSION: 1. No evidence of retroperitoneal hemorrhage. 2. Bibasilar subsegmental airspace disease and small bilateral effusions. 3. Patchy areas of hypodensity throughout the liver and spleen of uncertain et iology. Considering patient's history a septic vascular embolic process should be considered. 4. Minimal air in the urinary bladder. 5. Developing anasarca. Chest CT 10/25/17 Signed Impressions: CONCLUSION: 1. Multiple bilateral scattered interstitial and airspace infiltrates througho ut both lung yuen suggestive of some type of inflammatory process. 2. Abnormal appearance of the liver. Recommend CT scan of the abdomen with IV contrast for further evaluation. Brain MRI 10/25/17 Signed Impressions: CONCLUSION: 1. Unremarkable MRI examination of the brain. Specifically, no cerebral edema or diffusion abnormality to suggest encephalitis. Head CT 10/24/17 0000 Signed Impressions: CONCLUSION: 1. No acute intracranial abnormality. Gall Bladder Ultrasound 10/23/17 0000 Signed Impressions: CONCLUSION: 1. There is increased echogenicity of the liver suggestive of fatty infiltrati on and/or hepatocellular disease. 2. No evidence of gallstones or biliary tract obstruction. Renal Ultrasound 10/19/17 0000 Signed Impressions: Service Date/Time: Thursday, October 19, 2017 09:46 - CONCLUSION: Normal examination. Alexx Baig MD Physical Exam GENERAL: Awake and alert, NAD. SKIN: Cool and dry. No generalized rash. HEAD: Atraumatic. Normocephalic. No temporal wasting, or tenderness. EYES: [place] conjunctiva. No petechia or hemorrhage. Has dirty sclera. EARS, NOSE AND THROAT: Nose without bleeding or purulent nasal discharge. Moist mucosa NECK: Trachea midline. Supple and not tender, no meningeal signs CARDIOVASCULAR: Regular rate and rhythm. No murmurs, rubs or gallops heard RESPIRATORY: Decreased BS at bases ABDOMEN: Distended, mild tenderness, not guarding, bowel sounds present and hypoactive. EXTREMITIES: Warm, has pitting edema. Has stable embolic lesions tip of 3 fingers on his R hand NEUROLOGICAL: Grossly non-focal PSYCHIATRIC: Calm and cooperative LINE: No evidence of infection Assessment & Plan Remarks IMPRESSION Possible sepsis on initial presentation with fevers, dec LOC, MOSF - better - source possible lung, has aishwarya nodular infiltrates, BC negative, no sputum C/S - possibly initial source is his endocarditis - he has been on Abx sonce 10/19 Has multiple embolic lesions, source? IE - his BC have been negative - SHASHI with small AV vegetation Endocarditis - C/S have been negative on admission - ?Culture negative endocarditis Aishwarya pulmonary infiltrates, etiology? 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
--- NOTE | 2017-11-15 16:09 | HHI.PR ---
Subjective Remarks 42 YOAA male with Bipolar disorder, Lung infilt, fever Denies sob no CP BX Organising Pn, eiosinophilic pn Breathing better On RA, ambulates Objective Vital Signs Vital Signs Date Time Temp Pulse Resp B/P (MAP) Pulse Ox O2 Delivery O2 Flow Rate FiO2 11/15/17 12:29 98.5 90 17 132/76 (94) 96 11/15/17 12:00 91 11/15/17 08:11 99.0 98 17 147/83 (104) 99 11/15/17 08:00 91 11/15/17 08:00 Room Air 11/15/17 03:54 92 11/15/17 00:25 99.1 95 20 136/72 (93) 96 11/14/17 23:57 91 11/14/17 20:58 98.9 88 20 137/78 (97) 99 11/14/17 20:30 Room Air 11/14/17 19:59 97 11/14/17 17:17 97 Room Air 11/14/17 17:04 98.5 93 16 139/69 (92) 97 I/O 11/14/17 11/14/17 11/14/17 11/15/17 11/15/17 11/15/17 07:00 15:00 23:00 07:00 15:00 23:00 Intake Total 1990 ml 600 ml 460 ml 480 ml Output Total 2200 ml 2600 ml 2250 ml Balance -210 ml 600 ml -2140 ml -1770 ml Intake Oral 1440 ml 460 ml 480 ml IV Total 550 ml 600 ml Output Urine Total 2200 ml 2600 ml 2250 ml # Bowel Movements 1 3 0 Result Diagram: 11/15/17 0505 11/15/17 0955 Objective Remarks GENERAL: WBWN AA male, NAD SKIN: Warm and dry. HEAD: Normocephalic. EYES: No scleral icterus. No injection or drainage. NECK: Supple, trachea midline. No JVD or lymphadenopathy. CARDIOVASCULAR: Regular rate and rhythm without murmurs, gallops, or rubs. RESPIRATORY: Breath sounds equal bilaterally. No accessory muscle use. GASTROINTESTINAL: Abdomen soft, non-tender, nondistended. MUSCULOSKELETAL: No cyanosis, or edema. BACK: Nontender without obvious deformity. No CVA tenderness. A/P Assessment and Plan IMPRESSION: 1. Bilateral lung infiltrate with ongoing fever. He has been treated with antibiotic. Cultures have been negative. Possibility of inflammatory process of the lung or alveolitis. 2. Diabetes mellitus. 3. Renal insufficiency has improved. 4. Benign prostatic hypertrophy. 5. Bipolar disorder. 6. Organising Pn, eiosinophilic Pn PLAN: Cont Abx per ID, Rocephin and Vanco until 11/29 Check BAL, Bx results DW Pt PO Steroids Stable from Pulm standpoint Han Gonsalves MD Nov 15, 2017 16:09
--- NOTE | 2017-11-15 17:37 | HHI.PR ---
Subjective Remarks The patient was seen earlier today. Appears to not acute distress. No events overnight. Says he has some rash in his groin however creams are helping. No fever or chills. No chest pain was ambulating with physical therapy today Objective Vitals Vital Signs Date Time Temp Pulse Resp B/P (MAP) Pulse Ox O2 Delivery O2 Flow Rate FiO2 11/15/17 12:29 98.5 90 17 132/76 (94) 96 11/15/17 12:00 91 11/15/17 08:11 99.0 98 17 147/83 (104) 99 11/15/17 08:00 91 11/15/17 08:00 Room Air 11/15/17 03:54 92 11/15/17 00:25 99.1 95 20 136/72 (93) 96 11/14/17 23:57 91 11/14/17 20:58 98.9 88 20 137/78 (97) 99 11/14/17 20:30 Room Air 11/14/17 19:59 97 I/O 11/14/17 11/14/17 11/14/17 11/15/17 11/15/17 11/15/17 07:00 15:00 23:00 07:00 15:00 23:00 Intake Total 1990 ml 600 ml 460 ml 480 ml Output Total 2200 ml 2600 ml 2250 ml Balance -210 ml 600 ml -2140 ml -1770 ml Intake Oral 1440 ml 460 ml 480 ml IV Total 550 ml 600 ml Output Urine Total 2200 ml 2600 ml 2250 ml # Bowel Movements 1 3 0 Result Diagram: 11/15/17 0505 11/15/17 0955 Objective Remarks GENERAL: 42 yo M appears in NAD CARDIOVASCULAR: Regular rate and rhythm without murmurs, gallops, or rubs. RESPIRATORY: Breath sounds equal bilaterally. No accessory muscle use. GASTROINTESTINAL: Abdomen soft, non-tender, nondistended. MUSCULOSKELETAL: No cyanosis, or edema. BACK: Nontender without obvious deformity. No CVA tenderness. Date of Insertion: October 19, 2017 A/P Problem List: (1) Acute respiratory failure ICD Code: J96.00 - Acute respiratory failure, unspecified whether with hypoxia or hypercapnia (2) Acute encephalopathy ICD Code: G93.40 - Encephalopathy, unspecified Status: Acute (3) Normocytic anemia ICD Code: D64.9 - Anemia, unspecified (4) Lactic acidosis ICD Code: E87.2 - Acidosis Status: Acute (5) Hypoalbuminemia ICD Code: E88.09 - Other disorders of plasma-protein metabolism, not elsewhere classified (6) Hypophosphatemia ICD Code: E83.39 - Other disorders of phosphorus metabolism Status: Acute (7) Hypokalemia ICD Code: E87.6 - Hypokalemia Status: Acute (8) Hypermagnesemia ICD Code: E83.41 - Hypermagnesemia (9) Acute kidney injury ICD Code: N17.9 - Acute kidney failure, unspecified Status: Acute (10) Leukocytosis ICD Code: D72.829 - Elevated white blood cell count, unspecified Status: Acute (11) Hyponatremia ICD Code: E87.1 - Hypo-osmolality and hyponatremia Status: Acute (12) Hypertension ICD Code: I10 - Essential (primary) hypertension (13) Pyrexia ICD Code: R50.9 - Fever, unspecified Status: Acute (14) Depression ICD Code: F32.9 - Major depressive disorder, single episode, unspecified (15) Ketoacidosis due to secondary diabetes ICD Code: E13.10 - Other specified diabetes mellitus with ketoacidosis without coma Status: Acute (16) BMI 37.0-37.9, adult ICD Code: Z68.37 - Body mass index (BMI) 37.0-37.9, adult Status: Acute Assessment and Plan 42-year-old man with: Endocarditis, sepsis, fevers Patient has multiple embolic lesions, SHASHI shows aortic valve vegetation 0.7 x 0.8 cm Infectious disease recommends staying with Rocephin and vancomycin for now, patient will need antibiotics until possible November 29, 2017. Appreciate infectious disease consult Appreciate cardiology workup Hypertension Continue Norvasc, Coreg,and hydralazine. Anxiety Continue Xanax Acute hypoxic and hypercarbic respiratory failure Bilateral pulmonary infiltrate Extubated 10/24/2017, doing well on nasal cannula oxygen Pulmonology consulted for abnormalities on imaging Status post bronchoscopy 11/07/17 pending cytology and culture report Follow-up CHEST X-RAY November 07, 2017 showed significant improvement of aeration in the lungs Upper GI bleed Gastroenterology signed off Continue pantoprazole Right lower extremity pain Nonocclusive thrombus and currently on 40 subcu of Lovenox daily, discharge home on Eliquis when ready to leave the hospital Doppler + DVT Acute hyperglycemic state Continue sliding-scale insulin with Accu-Cheks Continue Levemir 5 U q12h, hemoglobin A1c 13. Diabetic diet Tinea cruris Continue nystatin Insomnia start melatonin hS DVT prophylaxis Lovenox DC plan: patient with endocarditis with spikes of fevers, needs IV abx. ID ff DC when improved and cleared by consultants. Problem Qualifiers (1) Acute respiratory failure: Qualified Codes: J96.01 - Acute respiratory failure with hypoxia; J96.02 - Acute respiratory failure with hypercapnia (2) Pyrexia: Qualified Codes: R50.9 - Fever, unspecified (3) Depression: Qualified Codes: F32.9 - Major depressive disorder, single episode, unspecified Shante Luke MD Nov 15, 2017 17:37
[2017-11-15] MEDS: ALPRAZolam 0.25 MG TAB PO PRN (23:40)
[2017-11-16] VITALS (12 sets, daily range): BP systolic 118–133; BP diastolic 55–73; PULSE 67–98; RESP 16–20; TEMP 98.5–99.8; O2SAT 96–100
[2017-11-16] MEDS: CHLORHEXIDINE GLUCONATE 2 % 1 PACK (2 CLOTHS) TOP SCH (03:54)
[2017-11-16 05:40] LABS: CREATININE 1.01 MG/DL (0.60-1.30)
[2017-11-16] MEDS: ARTIFICIAL TEARS OPTH SOLN 15 ML BTL EACH EYE SCH ×3 (06:00→22:00)
[2017-11-16] MEDS: hydrALAZINE HCL 50 MG TAB PO SCH ×3 (06:23→22:44)
[2017-11-16] MEDS: CHLORHEXIDINE 0.12% (ORAL KIT) 15 ML CUP MT SCH ×2 (08:00→20:00)
[2017-11-16] MEDS: INSULIN ASPART SUPPLEMENTAL SCALE SQ SCH ×4 (08:00→21:00)
--- NOTE | 2017-11-16 08:23 | HHI.PR ---
Subjective Remarks In bed appears in acute distress. He complains of some pain in his legs numbness and tingling. Says he is walking with physical therapy. Also family at bedside his father. Patient denies any fever or chills. No nausea or vomiting. Objective Vitals Vital Signs Date Time Temp Pulse Resp B/P (MAP) Pulse Ox O2 Delivery O2 Flow Rate FiO2 11/16/17 04:00 99.0 91 18 121/55 (77) 97 11/16/17 04:00 89 11/16/17 03:00 96 Room Air 11/16/17 00:00 83 11/16/17 00:00 98.9 86 16 128/73 (91) 98 11/15/17 23:00 96 Room Air 11/15/17 21:00 99.1 99 16 123/78 (93) 96 11/15/17 20:00 86 11/15/17 19:00 96 Room Air 11/15/17 16:11 99.0 88 17 117/67 (84) 98 11/15/17 16:00 95 11/15/17 12:29 98.5 90 17 132/76 (94) 96 11/15/17 12:00 91 I/O 11/15/17 11/15/17 11/15/17 11/16/17 11/16/17 11/16/17 07:00 15:00 23:00 07:00 15:00 23:00 Intake Total 480 ml 840 ml 600 ml Output Total 2250 ml 1200 ml 1050 ml Balance -1770 ml -360 ml -450 ml Intake Oral 480 ml 840 ml 600 ml Output Urine Total 2250 ml 1200 ml 1050 ml # Bowel Movements 0 2 0 Result Diagram: 11/15/17 0505 11/16/17 0500 Imaging Last Impressions Chest X-Ray 11/15/17 0000 Signed Impressions: CONCLUSION: 1. Improved aeration of the lungs compared to the previous examination with mi ld scattered infiltrates still noted. Lower Extremity Ultrasound 11/09/17 0000 Signed Impressions: CONCLUSION: 1. There is nonocclusive thrombus within the right common femoral vein. 2. The remaining veins of the right lower extremity are patent. Abdomen MRI 11/03/17 0000 Signed Impressions: CONCLUSION: 1. Nonspecific heterogeneous signal and enhancement pattern of the liver as de scribed above and not convincingly changed from the prior CT. This is not parti cularly masslike or with organized fluid. A transient phenomenon related to hep atomegaly and/or hepatocellular disease is thought most likely. Hepatic abscess es are considered unlikely. 2. Small spleen and it also has diffusely heterogeneous signal and enhancement . Acute or subacute superimposed on chronic splenic infarcts are considered mos t likely. No significant change from the CT. In addition, no particularly mass like area and also no evidence of organized fluid so splenic abscesses are cons idered less likely. Abdomen/Pelvis CT 10/27/17 0000 Signed Impressions: CONCLUSION: 1. No evidence of retroperitoneal hemorrhage. 2. Bibasilar subsegmental airspace disease and small bilateral effusions. 3. Patchy areas of hypodensity throughout the liver and spleen of uncertain et iology. Considering patient's history a septic vascular embolic process should be considered. 4. Minimal air in the urinary bladder. 5. Developing anasarca. Chest CT 10/25/17 Signed Impressions: CONCLUSION: 1. Multiple bilateral scattered interstitial and airspace infiltrates througho ut both lung yuen suggestive of some type of inflammatory process. 2. Abnormal appearance of the liver. Recommend CT scan of the abdomen with IV contrast for further evaluation. Brain MRI 10/25/17 Signed Impressions: CONCLUSION: 1. Unremarkable MRI examination of the brain. Specifically, no cerebral edema or diffusion abnormality to suggest encephalitis. Head CT 10/24/17 Signed Impressions: CONCLUSION: 1. No acute intracranial abnormality. Gall Bladder Ultrasound 10/23/17 Signed Impressions: CONCLUSION: 1. There is increased echogenicity of the liver suggestive of fatty infiltrati on and/or hepatocellular disease. 2. No evidence of gallstones or biliary tract obstruction. Renal Ultrasound 10/19/17 Signed Impressions: Service Date/Time: Thursday, October 19, 2017 09:46 - CONCLUSION: Normal examination. Alexx Baig MD Objective Remarks GENERAL: 42 yo M appears in NAD CARDIOVASCULAR: Regular rate and rhythm without murmurs, gallops, or rubs. RESPIRATORY: Breath sounds equal bilaterally. No accessory muscle use. GASTROINTESTINAL: Abdomen soft, non-tender, nondistended. MUSCULOSKELETAL: No cyanosis, or edema. BACK: Nontender without obvious deformity. No CVA tenderness. Date of Insertion: October 19, 2017 A/P Problem List: (1) Acute respiratory failure ICD Code: J96.00 - Acute respiratory failure, unspecified whether with hypoxia or hypercapnia (2) Acute encephalopathy ICD Code: G93.40 - Encephalopathy, unspecified Status: Acute (3) Normocytic anemia ICD Code: D64.9 - Anemia, unspecified (4) Lactic acidosis ICD Code: E87.2 - Acidosis Status: Acute (5) Hypoalbuminemia ICD Code: E88.09 - Other disorders of plasma-protein metabolism, not elsewhere classified (6) Hypophosphatemia ICD Code: E83.39 - Other disorders of phosphorus metabolism Status: Acute (7) Hypokalemia ICD Code: E87.6 - Hypokalemia Status: Acute (8) Hypermagnesemia ICD Code: E83.41 - Hypermagnesemia (9) Acute kidney injury ICD Code: N17.9 - Acute kidney failure, unspecified Status: Acute (10) Leukocytosis ICD Code: D72.829 - Elevated white blood cell count, unspecified Status: Acute (11) Hyponatremia ICD Code: E87.1 - Hypo-osmolality and hyponatremia Status: Acute (12) Hypertension ICD Code: I10 - Essential (primary) hypertension (13) Pyrexia ICD Code: R50.9 - Fever, unspecified Status: Acute (14) Depression ICD Code: F32.9 - Major depressive disorder, single episode, unspecified (15) Ketoacidosis due to secondary diabetes ICD Code: E13.10 - Other specified diabetes mellitus with ketoacidosis without coma Status: Acute (16) BMI 37.0-37.9, adult ICD Code: Z68.37 - Body mass index (BMI) 37.0-37.9, adult Status: Acute Assessment and Plan 42-year-old man with: Endocarditis, sepsis, fevers Patient has multiple embolic lesions, SHASHI shows aortic valve vegetation 0.7 x 0.8 cm Infectious disease recommends staying with Rocephin and vancomycin for now, patient will need antibiotics until possible November 29, 2017. Appreciate infectious disease consult Appreciate cardiology workup Hypertension Continue Norvasc, Coreg,and hydralazine. Anxiety Continue Xanax Acute hypoxic and hypercarbic respiratory failure Bilateral pulmonary infiltrate Extubated 10/24/2017, doing well on nasal cannula oxygen Pulmonology consulted for abnormalities on imaging Status post bronchoscopy 11/07/17 pending cytology and culture report Follow-up CHEST X-RAY November 07, 2017 showed significant improvement of aeration in the lungs Upper GI bleed Gastroenterology signed off Continue pantoprazole Right lower extremity pain Nonocclusive thrombus and currently on 40 subcu of Lovenox daily, discharge home on Eliquis when ready to leave the hospital Doppler + DVT Acute hyperglycemic state Continue sliding-scale insulin with Accu-Cheks Continue Levemir 5 U q12h, hemoglobin A1c 13. Diabetic diet Tinea cruris Continue nystatin Insomnia start melatonin hS DVT prophylaxis Lovenox DC plan: patient with endocarditis with spikes of fevers, needs IV abx. ID ff DC when improved and cleared by consultants. Problem Qualifiers (1) Acute respiratory failure: Qualified Codes: J96.01 - Acute respiratory failure with hypoxia; J96.02 - Acute respiratory failure with hypercapnia (2) Pyrexia: Qualified Codes: R50.9 - Fever, unspecified (3) Depression: Qualified Codes: F32.9 - Major depressive disorder, single episode, unspecified Shante Luke MD Nov 16, 2017 08:23
[2017-11-16] MEDS: SODIUM CHLORIDE 0.9% FLUSH 10 ML FLUSH IV FLUSH SCH ×3 (09:00→22:45)
[2017-11-16] MEDS: CHOLESTYRAMINE 4 GM PACKET PO SCH (10:56)
[2017-11-16] MEDS: CARVEDILOL 6.25 MG TAB PO SCH ×2 (10:56→22:44)
[2017-11-16] MEDS: ENOXAPARIN SODIUM 40 MG/0.4 ML SYRINGE SQ SCH (10:56)
[2017-11-16] MEDS: PANTOPRAZOLE SOD 40 MG DELAYED RELEASE TAB PO SCH ×2 (10:57→22:44)
[2017-11-16] MEDS: predniSONE 20 MG TAB PO SCH ×2 (10:57→22:44)
[2017-11-16] MEDS: ALPRAZolam 0.25 MG TAB PO PRN ×2 (10:57→22:44)
[2017-11-16] MEDS: LACTOBACILLUS ACIDOPHILUS TAB PO SCH ×2 (10:57→22:46)
[2017-11-16] MEDS: INSULIN DETEMIR 100 UNITS/ML VIAL SQ SCH ×2 (10:58→21:00)
[2017-11-16] MEDS: VANCOMYCIN 1,500 MG/NS 500 ML IV SCH ×4 (10:58→22:49)
[2017-11-16] MEDS: NYSTATIN 100,000 U/GM PWD 15 GM BTL TOPICAL SCH ×2 (10:59→21:00)
[2017-11-16] MEDS: cefTRIAXone INJ 2,000 MG in SODIUM CHLORIDE 0.9% INJ 100 ML IV SCH (14:00)
[2017-11-16] MEDS: GABAPENTIN 100 MG CAP PO SCH (17:48)
--- NOTE | 2017-11-16 18:36 | HHI.PR ---
Subjective Remarks 42 YOAA male with Bipolar disorder, Lung infilt, fever Denies sob no CP BX Organising Pn, eiosinophilic pn Breathing better On RA, ambulates Objective Vital Signs Vital Signs Date Time Temp Pulse Resp B/P (MAP) Pulse Ox O2 Delivery O2 Flow Rate FiO2 11/16/17 17:26 96 21 11/16/17 13:41 96 11/16/17 12:00 98.5 93 20 133/67 (89) 96 11/16/17 11:35 95 11/16/17 08:00 Room Air 21 11/16/17 08:00 98.5 67 18 120/57 (78) 100 11/16/17 07:37 94 11/16/17 04:00 99.0 91 18 121/55 (77) 97 11/16/17 04:00 89 11/16/17 03:00 96 Room Air 11/16/17 00:00 83 11/16/17 00:00 98.9 86 16 128/73 (91) 98 11/15/17 23:00 96 Room Air 11/15/17 21:00 99.1 99 16 123/78 (93) 96 11/15/17 20:00 86 11/15/17 19:00 96 Room Air I/O 11/15/17 11/15/17 11/15/17 11/16/17 11/16/17 11/16/17 07:00 15:00 23:00 07:00 15:00 23:00 Intake Total 480 ml 840 ml 600 ml Output Total 2250 ml 1200 ml 1050 ml Balance -1770 ml -360 ml -450 ml Intake Oral 480 ml 840 ml 600 ml Output Urine Total 2250 ml 1200 ml 1050 ml # Bowel Movements 0 2 0 Result Diagram: 11/15/17 0505 11/16/17 0500 Objective Remarks GENERAL: WBWN AA male, NAD SKIN: Warm and dry. HEAD: Normocephalic. EYES: No scleral icterus. No injection or drainage. NECK: Supple, trachea midline. No JVD or lymphadenopathy. CARDIOVASCULAR: Regular rate and rhythm without murmurs, gallops, or rubs. RESPIRATORY: Breath sounds equal bilaterally. No accessory muscle use. GASTROINTESTINAL: Abdomen soft, non-tender, nondistended. MUSCULOSKELETAL: No cyanosis, or edema. BACK: Nontender without obvious deformity. No CVA tenderness. A/P Assessment and Plan IMPRESSION: 1. Bilateral lung infiltrate with ongoing fever. He has been treated with antibiotic. Cultures have been negative. Possibility of inflammatory process of the lung or alveolitis. 2. Diabetes mellitus. 3. Renal insufficiency has improved. 4. Benign prostatic hypertrophy. 5. Bipolar disorder. 6. Organising Pn, eiosinophilic Pn PLAN: Cont Abx per ID, Rocephin and Vanco until 11/29 Check BAL, Bx results DW Pt PO Steroids Stable from Pulm standpoint Available prn over weekend Han Gonsalves MD Nov 16, 2017 18:36
[2017-11-16] MEDS: MELATONIN 5 MG TAB PO PRN (22:44)
[2017-11-16] MEDS: traMADol HCL 50 MG TAB PO PRN (23:04)
[2017-11-17] VITALS (7 sets, daily range): BP systolic 121–133; BP diastolic 61–77; PULSE 78–95; RESP 18–20; TEMP 96.4–99.1; O2SAT 96–98
[2017-11-17] MEDS: CHLORHEXIDINE GLUCONATE 2 % 1 PACK (2 CLOTHS) TOP SCH (04:00)
[2017-11-17] MEDS: ALPRAZolam 0.25 MG TAB PO PRN (05:31)
[2017-11-17] MEDS: hydrALAZINE HCL 50 MG TAB PO SCH ×3 (05:31→21:45)
[2017-11-17] MEDS: ARTIFICIAL TEARS OPTH SOLN 15 ML BTL EACH EYE SCH ×3 (05:33→21:52)
[2017-11-17 06:32] LABS: CREATININE 0.87 MG/DL (0.60-1.30)
[2017-11-17] MEDS: CHLORHEXIDINE 0.12% (ORAL KIT) 15 ML CUP MT SCH ×2 (08:00→20:00)
[2017-11-17] MEDS: INSULIN ASPART SUPPLEMENTAL SCALE SQ SCH ×4 (08:00→21:44)
[2017-11-17] MEDS: VANCOMYCIN 1,500 MG/NS 500 ML IV SCH ×4 (09:36→21:48)
[2017-11-17] MEDS: predniSONE 20 MG TAB PO SCH ×2 (09:36→21:45)
[2017-11-17] MEDS: LACTOBACILLUS ACIDOPHILUS TAB PO SCH ×2 (09:36→21:45)
[2017-11-17] MEDS: CHOLESTYRAMINE 4 GM PACKET PO SCH (09:36)
[2017-11-17] MEDS: GABAPENTIN 100 MG CAP PO SCH ×3 (09:37→17:46)
[2017-11-17] MEDS: PANTOPRAZOLE SOD 40 MG DELAYED RELEASE TAB PO SCH ×2 (09:37→21:45)
[2017-11-17] MEDS: ENOXAPARIN SODIUM 40 MG/0.4 ML SYRINGE SQ SCH (09:37)
[2017-11-17] MEDS: CARVEDILOL 6.25 MG TAB PO SCH ×2 (09:37→21:45)
[2017-11-17] MEDS: SODIUM CHLORIDE 0.9% FLUSH 10 ML FLUSH IV FLUSH SCH ×3 (09:38→21:46)
--- NOTE | 2017-11-17 09:58 | HHI.PR ---
Subjective Remarks Gabapentin for neuropathy. Pain in his legs is improving. No fever or chills. No chest pain. No palpitations. No events overnight Objective Vitals Vital Signs Date Time Temp Pulse Resp B/P (MAP) Pulse Ox O2 Delivery O2 Flow Rate FiO2 11/17/17 08:00 98.5 95 18 121/61 (81) 96 11/17/17 04:00 96.4 80 18 132/77 (95) 98 11/17/17 04:00 93 11/17/17 00:00 98.0 88 18 123/70 (87) 97 11/17/17 00:00 89 11/16/17 22:40 Room Air 11/16/17 21:15 98.7 93 16 132/73 (92) 98 11/16/17 20:00 87 11/16/17 17:26 96 21 11/16/17 16:00 99.8 98 20 118/62 (80) 96 11/16/17 15:35 92 11/16/17 13:41 96 11/16/17 12:00 98.5 93 20 133/67 (89) 96 11/16/17 11:35 95 I/O 11/16/17 11/16/17 11/16/17 11/17/17 11/17/17 11/17/17 07:00 15:00 23:00 07:00 15:00 23:00 Intake Total 600 ml 615 ml 480 ml Output Total 1050 ml 1200 ml 1800 ml Balance -450 ml 615 ml -720 ml -1800 ml Intake Oral 600 ml 480 ml IV Total 615 ml Output Urine Total 1050 ml 1200 ml 1800 ml # Bowel Movements 0 2 0 Result Diagram: 11/15/17 0505 11/17/17 0537 Imaging Last Impressions Chest X-Ray 11/15/17 0000 Signed Impressions: CONCLUSION: 1. Improved aeration of the lungs compared to the previous examination with mi ld scattered infiltrates still noted. Lower Extremity Ultrasound 11/09/17 0000 Signed Impressions: CONCLUSION: 1. There is nonocclusive thrombus within the right common femoral vein. 2. The remaining veins of the right lower extremity are patent. Abdomen MRI 11/03/17 0000 Signed Impressions: CONCLUSION: 1. Nonspecific heterogeneous signal and enhancement pattern of the liver as de scribed above and not convincingly changed from the prior CT. This is not parti cularly masslike or with organized fluid. A transient phenomenon related to hep atomegaly and/or hepatocellular disease is thought most likely. Hepatic abscess es are considered unlikely. 2. Small spleen and it also has diffusely heterogeneous signal and enhancement . Acute or subacute superimposed on chronic splenic infarcts are considered mos t likely. No significant change from the CT. In addition, no particularly mass like area and also no evidence of organized fluid so splenic abscesses are cons idered less likely. Abdomen/Pelvis CT 10/27/17 Signed Impressions: CONCLUSION: 1. No evidence of retroperitoneal hemorrhage. 2. Bibasilar subsegmental airspace disease and small bilateral effusions. 3. Patchy areas of hypodensity throughout the liver and spleen of uncertain et iology. Considering patient's history a septic vascular embolic process should be considered. 4. Minimal air in the urinary bladder. 5. Developing anasarca. Chest CT 10/25/17 Signed Impressions: CONCLUSION: 1. Multiple bilateral scattered interstitial and airspace infiltrates througho ut both lung yuen suggestive of some type of inflammatory process. 2. Abnormal appearance of the liver. Recommend CT scan of the abdomen with IV contrast for further evaluation. Brain MRI 10/25/17 Signed Impressions: CONCLUSION: 1. Unremarkable MRI examination of the brain. Specifically, no cerebral edema or diffusion abnormality to suggest encephalitis. Head CT 10/24/17 Signed Impressions: CONCLUSION: 1. No acute intracranial abnormality. Gall Bladder Ultrasound 10/23/17 Signed Impressions: CONCLUSION: 1. There is increased echogenicity of the liver suggestive of fatty infiltrati on and/or hepatocellular disease. 2. No evidence of gallstones or biliary tract obstruction. Renal Ultrasound 10/19/17 Signed Impressions: Service Date/Time: Thursday, October 19, 2017 09:46 - CONCLUSION: Normal examination. Alexx Baig MD Objective Remarks GENERAL: 42 yo M appears in NAD CARDIOVASCULAR: Regular rate and rhythm without murmurs, gallops, or rubs. RESPIRATORY: Breath sounds equal bilaterally. No accessory muscle use. GASTROINTESTINAL: Abdomen soft, non-tender, nondistended. MUSCULOSKELETAL: No cyanosis, or edema. BACK: Nontender without obvious deformity. No CVA tenderness. Date of Insertion: October 19, 2017 A/P Problem List: (1) Acute respiratory failure ICD Code: J96.00 - Acute respiratory failure, unspecified whether with hypoxia or hypercapnia (2) Acute encephalopathy ICD Code: G93.40 - Encephalopathy, unspecified Status: Acute (3) Normocytic anemia ICD Code: D64.9 - Anemia, unspecified (4) Lactic acidosis ICD Code: E87.2 - Acidosis Status: Acute (5) Hypoalbuminemia ICD Code: E88.09 - Other disorders of plasma-protein metabolism, not elsewhere classified (6) Hypophosphatemia ICD Code: E83.39 - Other disorders of phosphorus metabolism Status: Acute (7) Hypokalemia ICD Code: E87.6 - Hypokalemia Status: Acute (8) Hypermagnesemia ICD Code: E83.41 - Hypermagnesemia (9) Acute kidney injury ICD Code: N17.9 - Acute kidney failure, unspecified Status: Acute (10) Leukocytosis ICD Code: D72.829 - Elevated white blood cell count, unspecified Status: Acute (11) Hyponatremia ICD Code: E87.1 - Hypo-osmolality and hyponatremia Status: Acute (12) Hypertension ICD Code: I10 - Essential (primary) hypertension (13) Pyrexia ICD Code: R50.9 - Fever, unspecified Status: Acute (14) Depression ICD Code: F32.9 - Major depressive disorder, single episode, unspecified (15) Ketoacidosis due to secondary diabetes ICD Code: E13.10 - Other specified diabetes mellitus with ketoacidosis without coma Status: Acute (16) BMI 37.0-37.9, adult ICD Code: Z68.37 - Body mass index (BMI) 37.0-37.9, adult Status: Acute Assessment and Plan 42-year-old man with: Endocarditis, sepsis, fevers Patient has multiple embolic lesions, SHASHI shows aortic valve vegetation 0.7 x 0.8 cm Infectious disease recommends staying with Rocephin and vancomycin for now, patient will need antibiotics until possible November 29, 2017. Appreciate infectious disease consult Appreciate cardiology workup Hypertension Continue Norvasc, Coreg,and hydralazine. Anxiety Continue Xanax Acute hypoxic and hypercarbic respiratory failure Bilateral pulmonary infiltrate Extubated 10/24/2017, doing well on nasal cannula oxygen Pulmonology consulted for abnormalities on imaging Status post bronchoscopy 11/07/17 pending cytology and culture report Follow-up CHEST X-RAY November 07, 2017 showed significant improvement of aeration in the lungs Upper GI bleed Gastroenterology signed off Continue pantoprazole Right lower extremity pain Nonocclusive thrombus and currently on 40 subcu of Lovenox daily, discharge home on Eliquis when ready to leave the hospital Doppler + DVT Acute hyperglycemic state Continue sliding-scale insulin with Accu-Cheks Continue Levemir 5 U q12h, hemoglobin A1c 13. Diabetic diet Tinea cruris Continue nystatin Insomnia start melatonin hS Neuropathy. Start gabapentin. DVT prophylaxis Lovenox DC plan: patient with endocarditis with spikes of fevers, needs IV abx. ID ff DC when improved and cleared by consultants. Problem Qualifiers (1) Acute respiratory failure: Qualified Codes: J96.01 - Acute respiratory failure with hypoxia; J96.02 - Acute respiratory failure with hypercapnia (2) Pyrexia: Qualified Codes: R50.9 - Fever, unspecified (3) Depression: Qualified Codes: F32.9 - Major depressive disorder, single episode, unspecified Shante Luke MD Nov 17, 2017 09:58
[2017-11-17] MEDS: INSULIN DETEMIR 100 UNITS/ML VIAL SQ SCH ×2 (12:02→21:44)
[2017-11-17] MEDS: cefTRIAXone INJ 2,000 MG in SODIUM CHLORIDE 0.9% INJ 100 ML IV SCH (12:03)
[2017-11-17] MEDS: NYSTATIN 100,000 U/GM PWD 15 GM BTL TOPICAL SCH ×2 (17:50→21:00)
[2017-11-17] MEDS: MELATONIN 5 MG TAB PO PRN (21:48)
[2017-11-18] VITALS (11 sets, daily range): BP systolic 124–134; BP diastolic 63–81; PULSE 70–122; RESP 18; TEMP 97–99.1; O2SAT 97–99
[2017-11-18] MEDS: CHLORHEXIDINE GLUCONATE 2 % 1 PACK (2 CLOTHS) TOP SCH (03:47)
[2017-11-18] MEDS: hydrALAZINE HCL 50 MG TAB PO SCH ×3 (05:12→21:09)
[2017-11-18] MEDS: ARTIFICIAL TEARS OPTH SOLN 15 ML BTL EACH EYE SCH ×3 (05:12→21:12)
[2017-11-18 06:27] LABS: CREATININE 0.87 MG/DL (0.60-1.30)
[2017-11-18] MEDS: CHLORHEXIDINE 0.12% (ORAL KIT) 15 ML CUP MT SCH ×2 (08:00→20:00)
[2017-11-18] MEDS: INSULIN ASPART SUPPLEMENTAL SCALE SQ SCH ×4 (08:26→21:10)
[2017-11-18] MEDS: VANCOMYCIN 1,500 MG/NS 500 ML IV SCH ×4 (09:10→21:09)
[2017-11-18] MEDS: SODIUM CHLORIDE 0.9% FLUSH 10 ML FLUSH IV FLUSH SCH ×3 (09:10→21:11)
[2017-11-18] MEDS: CARVEDILOL 6.25 MG TAB PO SCH ×2 (09:17→21:09)
[2017-11-18] MEDS: CHOLESTYRAMINE 4 GM PACKET PO SCH (09:17)
[2017-11-18] MEDS: ENOXAPARIN SODIUM 40 MG/0.4 ML SYRINGE SQ SCH (09:17)
[2017-11-18] MEDS: GABAPENTIN 100 MG CAP PO SCH ×3 (09:17→17:20)
[2017-11-18] MEDS: predniSONE 20 MG TAB PO SCH ×2 (09:18→21:09)
[2017-11-18] MEDS: INSULIN DETEMIR 100 UNITS/ML VIAL SQ SCH ×2 (09:18→21:10)
[2017-11-18] MEDS: LACTOBACILLUS ACIDOPHILUS TAB PO SCH ×2 (09:18→21:09)
[2017-11-18] MEDS: PANTOPRAZOLE SOD 40 MG DELAYED RELEASE TAB PO SCH ×2 (09:18→21:09)
[2017-11-18] MEDS: NYSTATIN 100,000 U/GM PWD 15 GM BTL TOPICAL SCH ×2 (09:19→21:00)
--- NOTE | 2017-11-18 09:52 | HHI.PR ---
Subjective Remarks Appears not acute distress at this time. Says he has less pain in his legs. He is walking daily hallways. Objective Vitals Vital Signs Date Time Temp Pulse Resp B/P (MAP) Pulse Ox O2 Delivery O2 Flow Rate FiO2 11/18/17 08:00 99.1 96 18 129/69 (89) 99 11/18/17 04:00 87 11/18/17 04:00 97.4 92 18 134/81 (98) 98 11/18/17 04:00 Room Air 11/18/17 00:10 97.0 88 18 124/66 (85) 98 11/18/17 00:00 Room Air 11/18/17 00:00 84 11/17/17 20:00 97.0 86 20 133/72 (92) 98 11/17/17 20:00 Room Air 11/17/17 20:00 86 11/17/17 19:26 21 11/17/17 16:00 99.1 90 18 126/67 (86) 98 11/17/17 14:41 96 21 11/17/17 12:00 98.8 78 18 126/66 (86) 98 11/17/17 12:00 88 I/O 11/17/17 11/17/17 11/17/17 11/18/17 11/18/17 11/18/17 07:00 15:00 23:00 07:00 15:00 23:00 Intake Total 480 ml 222 ml Output Total 1800 ml 1300 ml 2000 ml Balance -1800 ml -820 ml -1778 ml Intake Oral 480 ml 222 ml Output Urine Total 1800 ml 1300 ml 2000 ml # Bowel Movements 0 2 0 Result Diagram: 11/15/17 0505 11/18/17 0530 Imaging Last Impressions Chest X-Ray 11/15/17 0000 Signed Impressions: CONCLUSION: 1. Improved aeration of the lungs compared to the previous examination with mi ld scattered infiltrates still noted. Lower Extremity Ultrasound 11/09/17 0000 Signed Impressions: CONCLUSION: 1. There is nonocclusive thrombus within the right common femoral vein. 2. The remaining veins of the right lower extremity are patent. Abdomen MRI 11/03/17 0000 Signed Impressions: CONCLUSION: 1. Nonspecific heterogeneous signal and enhancement pattern of the liver as de scribed above and not convincingly changed from the prior CT. This is not parti cularly masslike or with organized fluid. A transient phenomenon related to hep atomegaly and/or hepatocellular disease is thought most likely. Hepatic abscess es are considered unlikely. 2. Small spleen and it also has diffusely heterogeneous signal and enhancement . Acute or subacute superimposed on chronic splenic infarcts are considered mos t likely. No significant change from the CT. In addition, no particularly mass like area and also no evidence of organized fluid so splenic abscesses are cons idered less likely. Abdomen/Pelvis CT 10/27/17 Signed Impressions: CONCLUSION: 1. No evidence of retroperitoneal hemorrhage. 2. Bibasilar subsegmental airspace disease and small bilateral effusions. 3. Patchy areas of hypodensity throughout the liver and spleen of uncertain et iology. Considering patient's history a septic vascular embolic process should be considered. 4. Minimal air in the urinary bladder. 5. Developing anasarca. Chest CT 10/25/17 Signed Impressions: CONCLUSION: 1. Multiple bilateral scattered interstitial and airspace infiltrates througho ut both lung yuen suggestive of some type of inflammatory process. 2. Abnormal appearance of the liver. Recommend CT scan of the abdomen with IV contrast for further evaluation. Brain MRI 10/25/17 Signed Impressions: CONCLUSION: 1. Unremarkable MRI examination of the brain. Specifically, no cerebral edema or diffusion abnormality to suggest encephalitis. Head CT 10/24/17 Signed Impressions: CONCLUSION: 1. No acute intracranial abnormality. Gall Bladder Ultrasound 10/23/17 Signed Impressions: CONCLUSION: 1. There is increased echogenicity of the liver suggestive of fatty infiltrati on and/or hepatocellular disease. 2. No evidence of gallstones or biliary tract obstruction. Renal Ultrasound 10/19/17 Signed Impressions: Service Date/Time: Thursday, October 19, 2017 09:46 - CONCLUSION: Normal examination. Alexx Baig MD Objective Remarks GENERAL: 42 yo M appears in NAD CARDIOVASCULAR: Regular rate and rhythm without murmurs, gallops, or rubs. RESPIRATORY: Breath sounds equal bilaterally. No accessory muscle use. GASTROINTESTINAL: Abdomen soft, non-tender, nondistended. MUSCULOSKELETAL: No cyanosis, or edema. BACK: Nontender without obvious deformity. No CVA tenderness. Date of Insertion: October 19, 2017 A/P Problem List: (1) Acute respiratory failure ICD Code: J96.00 - Acute respiratory failure, unspecified whether with hypoxia or hypercapnia (2) Acute encephalopathy ICD Code: G93.40 - Encephalopathy, unspecified Status: Acute (3) Normocytic anemia ICD Code: D64.9 - Anemia, unspecified (4) Lactic acidosis ICD Code: E87.2 - Acidosis Status: Acute (5) Hypoalbuminemia ICD Code: E88.09 - Other disorders of plasma-protein metabolism, not elsewhere classified (6) Hypophosphatemia ICD Code: E83.39 - Other disorders of phosphorus metabolism Status: Acute (7) Hypokalemia ICD Code: E87.6 - Hypokalemia Status: Acute (8) Hypermagnesemia ICD Code: E83.41 - Hypermagnesemia (9) Acute kidney injury ICD Code: N17.9 - Acute kidney failure, unspecified Status: Acute (10) Leukocytosis ICD Code: D72.829 - Elevated white blood cell count, unspecified Status: Acute (11) Hyponatremia ICD Code: E87.1 - Hypo-osmolality and hyponatremia Status: Acute (12) Hypertension ICD Code: I10 - Essential (primary) hypertension (13) Pyrexia ICD Code: R50.9 - Fever, unspecified Status: Acute (14) Depression ICD Code: F32.9 - Major depressive disorder, single episode, unspecified (15) Ketoacidosis due to secondary diabetes ICD Code: E13.10 - Other specified diabetes mellitus with ketoacidosis without coma Status: Acute (16) BMI 37.0-37.9, adult ICD Code: Z68.37 - Body mass index (BMI) 37.0-37.9, adult Status: Acute Assessment and Plan 42-year-old man with: Endocarditis, sepsis, fevers Patient has multiple embolic lesions, SHASHI shows aortic valve vegetation 0.7 x 0.8 cm Infectious disease recommends staying with Rocephin and vancomycin for now, patient will need antibiotics until possible November 29, 2017. Appreciate infectious disease consult Appreciate cardiology workup Hypertension Continue Norvasc, Coreg,and hydralazine. Anxiety Continue Xanax Acute hypoxic and hypercarbic respiratory failure Bilateral pulmonary infiltrate Extubated 10/24/2017, doing well on nasal cannula oxygen Pulmonology consulted for abnormalities on imaging Status post bronchoscopy 11/07/17 pending cytology and culture report Follow-up CHEST X-RAY November 07, 2017 showed significant improvement of aeration in the lungs Upper GI bleed Gastroenterology signed off Continue pantoprazole Right lower extremity pain Nonocclusive thrombus and currently on 40 subcu of Lovenox daily, discharge home on Eliquis when ready to leave the hospital Doppler + DVT Acute hyperglycemic state Continue sliding-scale insulin with Accu-Cheks Continue Levemir 5 U q12h, hemoglobin A1c 13. Diabetic diet Tinea cruris Continue nystatin Insomnia start melatonin hS Neuropathy. Start gabapentin. DVT prophylaxis Lovenox DC plan: patient with endocarditis with spikes of fevers, needs IV abx. ID consulted patient will need antibiotics until possible November 29, 2017. DC when improved and cleared by consultants. Problem Qualifiers (1) Acute respiratory failure: Qualified Codes: J96.01 - Acute respiratory failure with hypoxia; J96.02 - Acute respiratory failure with hypercapnia (2) Pyrexia: Qualified Codes: R50.9 - Fever, unspecified (3) Depression: Qualified Codes: F32.9 - Major depressive disorder, single episode, unspecified Shante Luke MD Nov 18, 2017 09:52
[2017-11-18] MEDS: cefTRIAXone INJ 2,000 MG in SODIUM CHLORIDE 0.9% INJ 100 ML IV SCH (14:05)
[2017-11-18] MEDS: MELATONIN 5 MG TAB PO PRN (21:08)
[2017-11-19] VITALS (8 sets, daily range): BP systolic 126–138; BP diastolic 63–107; PULSE 82–102; RESP 16–20; TEMP 98.7–99.4; O2SAT 95–99
[2017-11-19] MEDS: CHLORHEXIDINE GLUCONATE 2 % 1 PACK (2 CLOTHS) TOP SCH (04:00)
[2017-11-19] MEDS: hydrALAZINE HCL 50 MG TAB PO SCH ×3 (05:34→21:50)
[2017-11-19] MEDS: ARTIFICIAL TEARS OPTH SOLN 15 ML BTL EACH EYE SCH ×3 (05:35→21:52)
--- NOTE | 2017-11-19 07:38 | PD.ONC.PN ---
Subjective Subjective Remarks Still had dark colored stool. Denies bright red blood per rectum. Denies abdominal pain. Objective Data Date Time Temp Pulse Resp B/P (MAP) Pulse Ox O2 Delivery O2 Flow Rate FiO2 11/19/17 04:00 Room Air 11/19/17 04:00 83 11/19/17 04:00 98.7 88 18 138/73 (94) 95 11/19/17 00:00 84 11/19/17 00:00 Room Air 11/19/17 00:00 98.7 83 18 134/79 (97) 98 11/18/17 20:00 Room Air 11/18/17 20:00 98.7 100 18 134/76 (95) 97 11/18/17 20:00 122 11/18/17 16:00 98.8 84 18 131/63 (85) 97 11/18/17 16:00 93 11/18/17 15:00 Room Air 11/18/17 14:10 97.9 11/18/17 14:09 125/69 (87) 11/18/17 12:00 87 11/18/17 11:08 Room Air 11/18/17 09:37 98 21 11/18/17 09:17 99 Room Air 11/18/17 08:08 70 11/18/17 08:00 99.1 96 18 129/69 (89) 99 11/19/17 11/19/17 11/19/17 07:00 15:00 23:00 Intake Total 120 ml Output Total 1400 ml Balance -1280 ml Result Diagram: 11/15/17 0505 11/18/17 0530 Administered Medications Medications (Trade) Dose Ordered Sig/Jacky Route PRN Reason Start Time Stop Time Status Last Admin Dose Admin Sodium Chloride (NS Flush) 2 ml UNSCH PRN IV FLUSH FLUSH AFTER USING IV ACCESS 10/19/17 02:30 11/13/17 00:10 Sodium Chloride (NS Flush) 2 ml BID IV FLUSH 10/19/17 09:00 11/18/17 21:11 Albuterol Sulfate (Albuterol Neb) 2.5 mg Q2HR NEB PRN INH SOB/WHEEZING 10/19/17 02:30 10/24/17 08:36 Miscellaneous Information ([facility] [place], [place] Nursing Information) 1 Q361D XX 10/19/17 02:30 10/19/17 02:30 Chlorhexidine Gluconate (Chlorhexidine 2% Cloth) Taper DAILY@04 TOP 10/19/17 04:00 10/15/18 03:59 10/27/17 04:00 Ondansetron HCl (Zofran Odt) 4 mg Q6H PRN PO NAUSEA OR VOMITING 10/19/17 02:30 10/29/17 23:44 Artificial Tears (Tears Naturale Opth Soln) 1 drop Q8HR EACH EYE 10/19/17 06:00 11/18/17 21:12 Chlorhexidine Gluconate (Peridex 0.12% Liq) 15 ml BID@08,20 MT 10/19/17 08:00 11/09/17 20:00 Insulin Detemir (Levemir Inj) 5 units Q12HR SQ 10/25/17 10:00 11/18/17 21:10 Amlodipine Besylate (Norvasc) 10 mg DAILY PO 10/26/17 09:00 11/18/17 09:18 Enoxaparin Sodium (Lovenox Inj) 40 mg Q24H SQ 10/26/17 08:00 11/18/17 09:17 Pantoprazole Sodium (Protonix) 40 mg Q12HR PO 10/27/17 21:00 11/18/17 21:09 Hydralazine HCl (Apresoline) 50 mg Q8HR PO 10/27/17 22:00 11/19/17 05:34 Insulin Aspart (NovoLOG SUPPLEMENTAL SCALE) 1 ACHS SLIDING SCALE SQ 10/27/17 17:00 11/18/17 21:10 Nystatin (Mycostatin Powder) 1 applic Q12HR TOPICAL 10/27/17 21:00 11/18/17 09:19 Tramadol HCl (Ultram) 50 mg Q8H PRN PO PAIN 5-10/29/17 13:15 11/16/17 23:04 Ceftriaxone Sodium 2000 mg/ Sodium Chloride 100 ml @ 200 mls/hr Q24H IV 10/31/17 13:00 11/18/17 14:05 Carvedilol (Coreg) 6.25 mg Q12HR PO 11/02/17 21:00 11/18/17 21:09 Alprazolam (Xanax) 0.25 mg Q6HR PRN PO anxiety 11/03/17 12:30 11/17/17 05:31 Acetaminophen (Tylenol) 325 mg Q4H PRN PO Fever > 100.4 11/03/17 18:45 11/12/17 05:21 Cholestyramine Resin (Questran 4 Gm Pkt) 4 gm DAILY PO 11/05/17 09:00 11/18/17 09:17 Vancomycin HCl 1500 mg/Sodium Chloride 515 ml @ 257.5 mls/ hr Q12H IV 11/06/17 22:00 11/18/17 21:09 Lactobacillus Acidophilus (Lactinex) 1 tab Q12HR PO 11/07/17 21:00 11/18/17 21:09 Sodium Chloride (NS Flush) See Protocol DAILY IV FLUSH 11/11/17 09:00 11/17/17 12:03 Heparin Sodium (Porcine) (Heparin Central Flush) See Protocol DAILY IV FLUSH 11/11/17 09:00 11/18/17 09:24 Heparin Sodium (Porcine) (Heparin Central Flush) See Protocol UNSCH PRN IV FLUSH SEE PROTOCOL TABLE 11/10/17 18:00 11/18/17 14:57 Melatonin (Melatonin) 5 mg HS PRN PO INSOMNIA 11/12/17 15:30 11/18/17 21:08 Prednisone (Deltasone) 20 mg BID PO 11/12/17 21:00 11/18/17 21:09 Gabapentin (Neurontin) 100 mg TID PO 11/16/17 18:00 11/18/17 17:20 Objective Remarks GENERAL: Well-nourished, well-developed patient. SKIN: Warm and dry. HEAD: Normocephalic. EYES: No scleral icterus. No injection or drainage. NECK: Supple, trachea midline. No JVD or lymphadenopathy. LYMPHATIC: No adenopathy. CARDIOVASCULAR: Regular rate and rhythm without murmurs. RESPIRATORY: Breath sounds equal bilaterally. No accessory muscle use. GASTROINTESTINAL: Abdomen soft, non-tender, nondistended. EXTREMITIES: No cyanosis, or edema. MUSCULOSKELETAL: Adequate muscle tone. NEUROLOGICAL: No obvious focal deficit. Awake, alert, and oriented x3. PSYCHIATRIC: Appropriate mood and affect; insight and judgment normal. Assessment/Plan Problem List: (1) Microcytic anemia ICD Codes: D50.9 - Iron deficiency anemia, unspecified Plan: --Hemoglobin has trended up to 9.2. --Likely multifactorial due to sepsis +inflammation and underlying sickle cell trait. --Iron studies were done after patient received blood transfusions--> difficult to interpret. --No sign of hemolysis --hemoglobin electrophoresis showed sickle cell trait. --SPEP shows no monoclonal protein. (2) Sepsis ICD Codes: A41.9 - Sepsis, unspecified organism Status: Resolved Plan: --SHASHI shows mitral valve regurgitation, aortic valve regurgitation and vegetation --ID following --Blood cultures have been negative so far (3) Leukocytosis ICD Codes: D72.829 - Elevated white blood cell count, unspecified Status: Acute Plan: Due to inflammatory process and steroid. WBC is stable. (4) Thrombocytosis ICD Codes: D47.3 - Essential (hemorrhagic) thrombocythemia Status: Acute Plan: Due to underlying inflammatory process. Platelet count has trended down slightly. Assessment 42 y/o male admitted with DKA and sepsis; hematology consulted for anemia Plan 1. Monitor CBC periodically. 2. continue antibiotics per infectious disease. Presley Lux MD Nov 19, 2017 07:38
[2017-11-19] MEDS: INSULIN ASPART SUPPLEMENTAL SCALE SQ SCH ×4 (07:42→21:52)
[2017-11-19] MEDS: CHLORHEXIDINE 0.12% (ORAL KIT) 15 ML CUP MT SCH ×2 (07:42→20:00)
[2017-11-19] MEDS: CHOLESTYRAMINE 4 GM PACKET PO SCH (09:01)
[2017-11-19] MEDS: VANCOMYCIN 1,500 MG/NS 500 ML IV SCH ×4 (09:01→21:53)
[2017-11-19] MEDS: CARVEDILOL 6.25 MG TAB PO SCH ×2 (09:02→21:50)
[2017-11-19] MEDS: ENOXAPARIN SODIUM 40 MG/0.4 ML SYRINGE SQ SCH (09:02)
[2017-11-19] MEDS: GABAPENTIN 100 MG CAP PO SCH ×3 (09:02→17:32)
[2017-11-19] MEDS: SODIUM CHLORIDE 0.9% FLUSH 10 ML FLUSH IV FLUSH SCH ×3 (09:02→21:00)
[2017-11-19] MEDS: predniSONE 20 MG TAB PO SCH (09:02)
[2017-11-19] MEDS: PANTOPRAZOLE SOD 40 MG DELAYED RELEASE TAB PO SCH ×2 (09:02→21:49)
[2017-11-19] MEDS: LACTOBACILLUS ACIDOPHILUS TAB PO SCH ×2 (09:02→21:50)
[2017-11-19] MEDS: INSULIN DETEMIR 100 UNITS/ML VIAL SQ SCH ×2 (09:03→21:00)
[2017-11-19] MEDS: NYSTATIN 100,000 U/GM PWD 15 GM BTL TOPICAL SCH ×2 (09:03→21:00)
[2017-11-19] MEDS: ALPRAZolam 0.25 MG TAB PO PRN ×2 (09:11→21:50)
[2017-11-19] MEDS: cefTRIAXone INJ 2,000 MG in SODIUM CHLORIDE 0.9% INJ 100 ML IV SCH (12:22)
--- NOTE | 2017-11-19 13:36 | HHI.PR ---
Subjective Remarks No events overnight. No fever or chills. No chest pain. He is ambulating the hallways. Vital signs stable. Objective Vitals Vital Signs Date Time Temp Pulse Resp B/P (MAP) Pulse Ox O2 Delivery O2 Flow Rate FiO2 11/19/17 12:00 82 11/19/17 08:00 99.2 92 16 131/75 (93) 99 11/19/17 08:00 Room Air 11/19/17 08:00 102 11/19/17 04:00 Room Air 11/19/17 04:00 83 11/19/17 04:00 98.7 88 18 138/73 (94) 95 11/19/17 00:00 84 11/19/17 00:00 Room Air 11/19/17 00:00 98.7 83 18 134/79 (97) 98 11/18/17 20:00 Room Air 11/18/17 20:00 98.7 100 18 134/76 (95) 97 11/18/17 20:00 122 11/18/17 16:00 98.8 84 18 131/63 (85) 97 11/18/17 16:00 93 11/18/17 15:00 Room Air 11/18/17 14:10 97.9 11/18/17 14:09 125/69 (87) I/O 11/18/17 11/18/17 11/18/17 11/19/17 11/19/17 11/19/17 07:00 15:00 23:00 07:00 15:00 23:00 Intake Total 222 ml 480 ml 120 ml Output Total 2000 ml 850 ml 1400 ml Balance -1778 ml -370 ml -1280 ml Intake Oral 222 ml 480 ml 120 ml Output Urine Total 2000 ml 850 ml 1400 ml # Bowel Movements 0 0 Result Diagram: 11/15/17 0505 11/18/17 0530 Imaging Last Impressions Chest X-Ray 11/15/17 0000 Signed Impressions: CONCLUSION: 1. Improved aeration of the lungs compared to the previous examination with mi ld scattered infiltrates still noted. Lower Extremity Ultrasound 11/09/17 0000 Signed Impressions: CONCLUSION: 1. There is nonocclusive thrombus within the right common femoral vein. 2. The remaining veins of the right lower extremity are patent. Abdomen MRI 11/03/17 0000 Signed Impressions: CONCLUSION: 1. Nonspecific heterogeneous signal and enhancement pattern of the liver as de scribed above and not convincingly changed from the prior CT. This is not parti cularly masslike or with organized fluid. A transient phenomenon related to hep atomegaly and/or hepatocellular disease is thought most likely. Hepatic abscess es are considered unlikely. 2. Small spleen and it also has diffusely heterogeneous signal and enhancement . Acute or subacute superimposed on chronic splenic infarcts are considered mos t likely. No significant change from the CT. In addition, no particularly mass like area and also no evidence of organized fluid so splenic abscesses are cons idered less likely. Abdomen/Pelvis CT 10/27/17 Signed Impressions: CONCLUSION: 1. No evidence of retroperitoneal hemorrhage. 2. Bibasilar subsegmental airspace disease and small bilateral effusions. 3. Patchy areas of hypodensity throughout the liver and spleen of uncertain et iology. Considering patient's history a septic vascular embolic process should be considered. 4. Minimal air in the urinary bladder. 5. Developing anasarca. Chest CT 10/25/17 Signed Impressions: CONCLUSION: 1. Multiple bilateral scattered interstitial and airspace infiltrates througho ut both lung yuen suggestive of some type of inflammatory process. 2. Abnormal appearance of the liver. Recommend CT scan of the abdomen with IV contrast for further evaluation. Brain MRI 10/25/17 Signed Impressions: CONCLUSION: 1. Unremarkable MRI examination of the brain. Specifically, no cerebral edema or diffusion abnormality to suggest encephalitis. Head CT 10/24/17 Signed Impressions: CONCLUSION: 1. No acute intracranial abnormality. Gall Bladder Ultrasound 10/23/17 Signed Impressions: CONCLUSION: 1. There is increased echogenicity of the liver suggestive of fatty infiltrati on and/or hepatocellular disease. 2. No evidence of gallstones or biliary tract obstruction. Renal Ultrasound 10/19/17 0000 Signed Impressions: Service Date/Time: Thursday, October 19, 2017 09:46 - CONCLUSION: Normal examination. Alexx Baig MD Objective Remarks GENERAL: 42 yo M appears in NAD CARDIOVASCULAR: Regular rate and rhythm without murmurs, gallops, or rubs. RESPIRATORY: Breath sounds equal bilaterally. No accessory muscle use. GASTROINTESTINAL: Abdomen soft, non-tender, nondistended. MUSCULOSKELETAL: No cyanosis, or edema. BACK: Nontender without obvious deformity. No CVA tenderness. Date of Insertion: October 19, 2017 A/P Problem List: (1) Acute respiratory failure ICD Code: J96.00 - Acute respiratory failure, unspecified whether with hypoxia or hypercapnia (2) Acute encephalopathy ICD Code: G93.40 - Encephalopathy, unspecified Status: Acute (3) Normocytic anemia ICD Code: D64.9 - Anemia, unspecified (4) Lactic acidosis ICD Code: E87.2 - Acidosis Status: Acute (5) Hypoalbuminemia ICD Code: E88.09 - Other disorders of plasma-protein metabolism, not elsewhere classified (6) Hypophosphatemia ICD Code: E83.39 - Other disorders of phosphorus metabolism Status: Acute (7) Hypokalemia ICD Code: E87.6 - Hypokalemia Status: Acute (8) Hypermagnesemia ICD Code: E83.41 - Hypermagnesemia (9) Acute kidney injury ICD Code: N17.9 - Acute kidney failure, unspecified Status: Acute (10) Leukocytosis ICD Code: D72.829 - Elevated white blood cell count, unspecified Status: Acute (11) Hyponatremia ICD Code: E87.1 - Hypo-osmolality and hyponatremia Status: Acute (12) Hypertension ICD Code: I10 - Essential (primary) hypertension (13) Pyrexia ICD Code: R50.9 - Fever, unspecified Status: Acute (14) Depression ICD Code: F32.9 - Major depressive disorder, single episode, unspecified (15) Ketoacidosis due to secondary diabetes ICD Code: E13.10 - Other specified diabetes mellitus with ketoacidosis without coma Status: Acute (16) BMI 37.0-37.9, adult ICD Code: Z68.37 - Body mass index (BMI) 37.0-37.9, adult Status: Acute Assessment and Plan 42-year-old man with: Endocarditis, sepsis, fevers Patient has multiple embolic lesions, SHASHI shows aortic valve vegetation 0.7 x 0.8 cm Infectious disease recommends staying with Rocephin and vancomycin for now, patient will need antibiotics until possible November 29, 2017. Appreciate infectious disease consult Appreciate cardiology workup Hypertension Continue Norvasc, Coreg,and hydralazine. Anxiety Continue Xanax Acute hypoxic and hypercarbic respiratory failure Bilateral pulmonary infiltrate Extubated 10/24/2017, doing well on nasal cannula oxygen Pulmonology consulted for abnormalities on imaging Status post bronchoscopy 11/07/17 pending cytology and culture report Follow-up CHEST X-RAY November 07, 2017 showed significant improvement of aeration in the lungs Upper GI bleed Gastroenterology signed off Continue pantoprazole Right lower extremity pain Nonocclusive thrombus and currently on 40 subcu of Lovenox daily, discharge home on Eliquis when ready to leave the hospital Doppler + DVT Acute hyperglycemic state Continue sliding-scale insulin with Accu-Cheks Continue Levemir 5 U q12h, hemoglobin A1c 13. Diabetic diet Tinea cruris Continue nystatin Insomnia start melatonin hS Neuropathy. Start gabapentin. DVT prophylaxis Lovenox DC plan: patient with endocarditis with spikes of fevers, needs IV abx. ID consulted patient will need antibiotics until possible November 29, 2017. DC when improved and cleared by consultants. Problem Qualifiers (1) Acute respiratory failure: Qualified Codes: J96.01 - Acute respiratory failure with hypoxia; J96.02 - Acute respiratory failure with hypercapnia (2) Pyrexia: Qualified Codes: R50.9 - Fever, unspecified (3) Depression: Qualified Codes: F32.9 - Major depressive disorder, single episode, unspecified Shante Luke MD Nov 19, 2017 13:36
--- NOTE | 2017-11-19 19:40 | HHI.PR ---
Subjective Remarks 42 YOAA male with Bipolar disorder, Lung infilt, fever Denies sob no CP BX Organising Pn, eiosinophilic pn Breathing better On RA, ambulates Objective Vital Signs Vital Signs Date Time Temp Pulse Resp B/P (MAP) Pulse Ox O2 Delivery O2 Flow Rate FiO2 11/19/17 16:00 99.4 90 16 129/75 (93) 98 11/19/17 15:44 86 11/19/17 12:00 98.9 95 16 126/63 (84) 98 11/19/17 12:00 82 11/19/17 08:00 99.2 92 16 131/75 (93) 99 11/19/17 08:00 Room Air 11/19/17 08:00 102 11/19/17 04:00 Room Air 11/19/17 04:00 83 11/19/17 04:00 98.7 88 18 138/73 (94) 95 11/19/17 00:00 84 11/19/17 00:00 Room Air 11/19/17 00:00 98.7 83 18 134/79 (97) 98 11/18/17 20:00 Room Air 11/18/17 20:00 98.7 100 18 134/76 (95) 97 11/18/17 20:00 122 I/O 11/18/17 11/18/17 11/18/17 11/19/17 11/19/17 11/19/17 07:00 15:00 23:00 07:00 15:00 23:00 Intake Total 222 ml 480 ml 120 ml 1440 ml Output Total 2000 ml 850 ml 1400 ml Balance -1778 ml -370 ml -1280 ml 1440 ml Intake Oral 222 ml 480 ml 120 ml 1440 ml Output Urine Total 2000 ml 850 ml 1400 ml # Voids 4 # Bowel Movements 0 0 1 Result Diagram: 11/15/17 0505 11/18/17 0530 Objective Remarks GENERAL: WBWN AA male, NAD SKIN: Warm and dry. HEAD: Normocephalic. EYES: No scleral icterus. No injection or drainage. NECK: Supple, trachea midline. No JVD or lymphadenopathy. CARDIOVASCULAR: Regular rate and rhythm without murmurs, gallops, or rubs. RESPIRATORY: Breath sounds equal bilaterally. No accessory muscle use. GASTROINTESTINAL: Abdomen soft, non-tender, nondistended. MUSCULOSKELETAL: No cyanosis, or edema. BACK: Nontender without obvious deformity. No CVA tenderness. A/P Assessment and Plan IMPRESSION: 1. Bilateral lung infiltrate with ongoing fever. He has been treated with antibiotic. Cultures have been negative. Possibility of inflammatory process of the lung or alveolitis. 2. Diabetes mellitus. 3. Renal insufficiency has improved. 4. Benign prostatic hypertrophy. 5. Bipolar disorder. 6. Organising Pn, eiosinophilic Pn PLAN: Cont Abx per ID, Rocephin and Vanco until 11/29 Check BAL, Bx results DW Pt PO Steroids Stable from Pulm standpoint Han Gonsalves MD Nov 19, 2017 19:40
[2017-11-19] MEDS: traMADol HCL 50 MG TAB PO PRN (21:50)
[2017-11-20] VITALS (11 sets, daily range): BP systolic 115–133; BP diastolic 55–72; PULSE 80–97; RESP 16–17; TEMP 99–99.6; O2SAT 97–99
[2017-11-20] MEDS: MELATONIN 5 MG TAB PO PRN (00:21)
[2017-11-20] MEDS: CHLORHEXIDINE GLUCONATE 2 % 1 PACK (2 CLOTHS) TOP SCH (03:07)
[2017-11-20] MEDS: ARTIFICIAL TEARS OPTH SOLN 15 ML BTL EACH EYE SCH ×3 (06:00→21:29)
[2017-11-20] MEDS: traMADol HCL 50 MG TAB PO PRN ×3 (06:18→21:26)
[2017-11-20] MEDS: ALPRAZolam 0.25 MG TAB PO PRN ×3 (06:18→22:15)
[2017-11-20] MEDS: hydrALAZINE HCL 50 MG TAB PO SCH ×3 (06:19→21:27)
[2017-11-20 06:55] LABS: AUTOMATED NEUTROPHIL # 12.1 TH/MM3 (1.8-7.7); BASOPHIL # 0.1 TH/MM3 (0-0.2); BASOPHIL % 0.3 % (0.0-2.0); EOSINOPHIL # 0.2 TH/MM3 (0-0.4); HEMATOCRIT 26.4 % (39.0-51.0); HEMOGLOBIN 8.8 GM/DL (13.0-17.0); LYMPH % 21.6 % (9.0-44.0); LYMPHOCYTE # 3.9 TH/MM3 (1.0-4.8); MEAN CELL VOLUME 80.6 FL (80.0-100.0); MEAN CORPUSCULAR HEMOGLOBIN 26.9 PG (27.0-34.0); MEAN CORPUSCULAR HGB CONC 33.3 % (32.0-36.0); MEAN PLATELET VOLUME 7.7 FL (7.0-11.0); MONO % 9.2 % (0.0-8.0); MONOCYTE # 1.6 TH/MM3 (0-0.9); NEUT % 67.9 % (16.0-70.0); PLATELET COUNT 566 TH/MM3 (150-450); RED BLOOD COUNT 3.28 MIL/MM3 (4.50-5.90); RED CELL DISTRIBUTION WIDTH 16.4 % (11.6-17.2); WHITE BLOOD COUNT 17.8 TH/MM3 (4.0-11.0)
[2017-11-20 07:00] LABS: CREATININE 0.86 MG/DL (0.60-1.30)
[2017-11-20] MEDS: CHLORHEXIDINE 0.12% (ORAL KIT) 15 ML CUP MT SCH ×2 (08:00→20:00)
[2017-11-20] MEDS: INSULIN ASPART SUPPLEMENTAL SCALE SQ SCH ×4 (08:00→21:28)
[2017-11-20] MEDS: SODIUM CHLORIDE 0.9% FLUSH 10 ML FLUSH IV FLUSH SCH ×3 (09:00→21:27)
--- NOTE | 2017-11-20 09:19 | HHI.PR ---
Subjective Remarks In not acute distress. No acute events overnight. No complaints at this time Objective Vitals Vital Signs Date Time Temp Pulse Resp B/P (MAP) Pulse Ox O2 Delivery O2 Flow Rate FiO2 11/20/17 04:08 80 11/20/17 04:00 Room Air 11/20/17 04:00 99.2 84 16 119/58 (78) 97 11/20/17 00:22 83 11/20/17 00:00 99.0 93 16 133/70 (91) 98 11/20/17 00:00 Room Air 11/19/17 23:54 18 11/19/17 21:50 Room Air 11/19/17 20:49 21 11/19/17 20:03 85 11/19/17 20:00 99.3 91 20 136/107 (117) 97 11/19/17 16:00 99.4 90 16 129/75 (93) 98 11/19/17 15:44 86 11/19/17 12:00 98.9 95 16 126/63 (84) 98 11/19/17 12:00 82 I/O 11/19/17 11/19/17 11/19/17 11/20/17 11/20/17 11/20/17 07:00 15:00 23:00 07:00 15:00 23:00 Intake Total 120 ml 1440 ml 875 ml Output Total 1400 ml 1225 ml Balance -1280 ml 1440 ml -350 ml Intake Oral 120 ml 1440 ml 360 ml IV Total 515 ml Output Urine Total 1400 ml 1225 ml # Voids 4 # Bowel Movements 0 1 Result Diagram: 11/20/17 0625 11/20/17 0625 Imaging Last Impressions Chest X-Ray 11/15/17 0000 Signed Impressions: CONCLUSION: 1. Improved aeration of the lungs compared to the previous examination with mi ld scattered infiltrates still noted. Lower Extremity Ultrasound 11/09/17 0000 Signed Impressions: CONCLUSION: 1. There is nonocclusive thrombus within the right common femoral vein. 2. The remaining veins of the right lower extremity are patent. Abdomen MRI 11/03/17 0000 Signed Impressions: CONCLUSION: 1. Nonspecific heterogeneous signal and enhancement pattern of the liver as de scribed above and not convincingly changed from the prior CT. This is not parti cularly masslike or with organized fluid. A transient phenomenon related to hep atomegaly and/or hepatocellular disease is thought most likely. Hepatic abscess es are considered unlikely. 2. Small spleen and it also has diffusely heterogeneous signal and enhancement . Acute or subacute superimposed on chronic splenic infarcts are considered mos t likely. No significant change from the CT. In addition, no particularly mass like area and also no evidence of organized fluid so splenic abscesses are cons idered less likely. Abdomen/Pelvis CT 10/27/17 Signed Impressions: CONCLUSION: 1. No evidence of retroperitoneal hemorrhage. 2. Bibasilar subsegmental airspace disease and small bilateral effusions. 3. Patchy areas of hypodensity throughout the liver and spleen of uncertain et iology. Considering patient's history a septic vascular embolic process should be considered. 4. Minimal air in the urinary bladder. 5. Developing anasarca. Chest CT 10/25/17 Addendum Impressions: CONCLUSION: 1. Multiple bilateral scattered interstitial and airspace infiltrates througho ut both lung yuen suggestive of some type of inflammatory process. 2. Abnormal appearance of the liver. Recommend CT scan of the abdomen with IV contrast for further evaluation. Brain MRI 10/25/17 Signed Impressions: CONCLUSION: 1. Unremarkable MRI examination of the brain. Specifically, no cerebral edema or diffusion abnormality to suggest encephalitis. Head CT 10/24/17 Signed Impressions: CONCLUSION: 1. No acute intracranial abnormality. Gall Bladder Ultrasound 10/23/17 Signed Impressions: CONCLUSION: 1. There is increased echogenicity of the liver suggestive of fatty infiltrati on and/or hepatocellular disease. 2. No evidence of gallstones or biliary tract obstruction. Renal Ultrasound 10/19/17 Signed Impressions: Service Date/Time: Thursday, October 19, 2017 09:46 - CONCLUSION: Normal examination. Alexx Baig MD Objective Remarks GENERAL: 42 yo M appears in NAD CARDIOVASCULAR: Regular rate and rhythm without murmurs, gallops, or rubs. RESPIRATORY: Breath sounds equal bilaterally. No accessory muscle use. GASTROINTESTINAL: Abdomen soft, non-tender, nondistended. MUSCULOSKELETAL: No cyanosis, or edema. BACK: Nontender without obvious deformity. No CVA tenderness. Date of Insertion: October 19, 2017 A/P Problem List: (1) Acute respiratory failure ICD Code: J96.00 - Acute respiratory failure, unspecified whether with hypoxia or hypercapnia (2) Acute encephalopathy ICD Code: G93.40 - Encephalopathy, unspecified Status: Acute (3) Normocytic anemia ICD Code: D64.9 - Anemia, unspecified (4) Lactic acidosis ICD Code: E87.2 - Acidosis Status: Acute (5) Hypoalbuminemia ICD Code: E88.09 - Other disorders of plasma-protein metabolism, not elsewhere classified (6) Hypophosphatemia ICD Code: E83.39 - Other disorders of phosphorus metabolism Status: Acute (7) Hypokalemia ICD Code: E87.6 - Hypokalemia Status: Acute (8) Hypermagnesemia ICD Code: E83.41 - Hypermagnesemia (9) Acute kidney injury ICD Code: N17.9 - Acute kidney failure, unspecified Status: Acute (10) Leukocytosis ICD Code: D72.829 - Elevated white blood cell count, unspecified Status: Acute (11) Hyponatremia ICD Code: E87.1 - Hypo-osmolality and hyponatremia Status: Acute (12) Hypertension ICD Code: I10 - Essential (primary) hypertension (13) Pyrexia ICD Code: R50.9 - Fever, unspecified Status: Acute (14) Depression ICD Code: F32.9 - Major depressive disorder, single episode, unspecified (15) Ketoacidosis due to secondary diabetes ICD Code: E13.10 - Other specified diabetes mellitus with ketoacidosis without coma Status: Acute (16) BMI 37.0-37.9, adult ICD Code: Z68.37 - Body mass index (BMI) 37.0-37.9, adult Status: Acute Assessment and Plan 42-year-old man with: Endocarditis, sepsis, fevers Patient has multiple embolic lesions, SHASHI shows aortic valve vegetation 0.7 x 0.8 cm Infectious disease recommends staying with Rocephin and vancomycin for now, patient will need antibiotics until possible November 29, 2017. Appreciate infectious disease consult Appreciate cardiology workup Hypertension Continue Norvasc, Coreg,and hydralazine. Anxiety Continue Xanax Acute hypoxic and hypercarbic respiratory failure Bilateral pulmonary infiltrate Extubated 10/24/2017, doing well on nasal cannula oxygen Pulmonology consulted for abnormalities on imaging Status post bronchoscopy 11/07/17 pending cytology and culture report Follow-up CHEST X-RAY November 07, 2017 showed significant improvement of aeration in the lungs Upper GI bleed Gastroenterology signed off Continue pantoprazole Right lower extremity pain Nonocclusive thrombus and currently on 40 subcu of Lovenox daily, discharge home on Eliquis when ready to leave the hospital Doppler + DVT Acute hyperglycemic state Continue sliding-scale insulin with Accu-Cheks Continue Levemir 5 U q12h, hemoglobin A1c 13. Diabetic diet Tinea cruris Continue nystatin Insomnia start melatonin hS Neuropathy. Start gabapentin. DVT prophylaxis Lovenox DC plan: patient with endocarditis with spikes of fevers, needs IV abx. ID consulted patient will need antibiotics until possible November 29, 2017. DC when improved and cleared by consultants. Problem Qualifiers (1) Acute respiratory failure: Qualified Codes: J96.01 - Acute respiratory failure with hypoxia; J96.02 - Acute respiratory failure with hypercapnia (2) Pyrexia: Qualified Codes: R50.9 - Fever, unspecified (3) Depression: Qualified Codes: F32.9 - Major depressive disorder, single episode, unspecified Shante Luke MD Nov 20, 2017 09:18
[2017-11-20] MEDS ORDERED: PHARMACY ORDERED LAB ONE (09:45)
[2017-11-20] MEDS: GABAPENTIN 100 MG CAP PO SCH ×3 (10:03→17:13)
[2017-11-20] MEDS: CARVEDILOL 6.25 MG TAB PO SCH ×2 (10:03→21:26)
[2017-11-20] MEDS: LACTOBACILLUS ACIDOPHILUS TAB PO SCH ×2 (10:03→21:26)
[2017-11-20] MEDS: PANTOPRAZOLE SOD 40 MG DELAYED RELEASE TAB PO SCH ×2 (10:03→21:26)
[2017-11-20] MEDS: predniSONE 20 MG TAB PO SCH (10:03)
[2017-11-20] MEDS: ENOXAPARIN SODIUM 40 MG/0.4 ML SYRINGE SQ SCH (10:04)
[2017-11-20] MEDS: CHOLESTYRAMINE 4 GM PACKET PO SCH (10:05)
[2017-11-20] MEDS: INSULIN DETEMIR 100 UNITS/ML VIAL SQ SCH ×2 (10:07→21:28)
[2017-11-20] MEDS: NYSTATIN 100,000 U/GM PWD 15 GM BTL TOPICAL SCH ×2 (10:44→21:28)
[2017-11-20] MEDS: VANCOMYCIN 1,500 MG/NS 500 ML IV SCH ×2 (10:45)
[2017-11-20] MEDS: cefTRIAXone INJ 2,000 MG in SODIUM CHLORIDE 0.9% INJ 100 ML IV SCH (12:18)
--- NOTE | 2017-11-20 17:34 | PD.ONC.PN ---
Subjective Subjective Remarks Feeling more tired today. Denies any chest pain or shortness of breath. Denies any melena or hematochezia. Objective Data Date Time Temp Pulse Resp B/P (MAP) Pulse Ox O2 Delivery O2 Flow Rate FiO2 11/20/17 16:29 99.0 97 17 119/65 (83) 98 11/20/17 12:13 99.0 90 17 121/57 (78) 98 11/20/17 08:11 99.0 89 16 115/55 (75) 97 11/20/17 04:08 80 11/20/17 04:00 Room Air 11/20/17 04:00 99.2 84 16 119/58 (78) 97 11/20/17 00:22 83 11/20/17 00:00 99.0 93 16 133/70 (91) 98 11/20/17 00:00 Room Air 11/19/17 23:54 18 11/19/17 21:50 Room Air 11/19/17 20:49 21 11/19/17 20:03 85 11/19/17 20:00 99.3 91 20 136/107 (117) 97 11/20/17 11/20/17 11/20/17 07:00 15:00 23:00 Intake Total 875 ml Output Total 1225 ml Balance -350 ml Result Diagram: 11/20/1762411/20/17624 Laboratory Results Laboratory Tests Test 11/20/17 06:25 11/20/17 10:20 White Blood Count 17.8 TH/MM3 Red Blood Count 3.28 MIL/MM3 Hemoglobin 8.8 GM/DL Hematocrit 26.4 % Mean Corpuscular Volume 80.6 FL Mean Corpuscular Hemoglobin 26.9 PG Mean Corpuscular Hemoglobin Concent 33.3 % Red Cell Distribution Width 16.4 % Platelet Count 566 TH/MM3 Mean Platelet Volume 7.7 FL Neutrophils (%) (Auto) 67.9 % Lymphocytes (%) (Auto) 21.6 % Monocytes (%) (Auto) 9.2 % Eosinophils (%) (Auto) 1.0 % Basophils (%) (Auto) 0.3 % Neutrophils # (Auto) 12.1 TH/MM3 Lymphocytes # (Auto) 3.9 TH/MM3 Monocytes # (Auto) 1.6 TH/MM3 Eosinophils # (Auto) 0.2 TH/MM3 Basophils # (Auto) 0.1 TH/MM3 CBC Comment DIFF FINAL Differential Comment Creatinine 0.86 MG/DL Estimat Glomerular Filtration Rate 119 ML/MIN Vancomycin Level Trough 13.3 MCG/ML Administered Medications Medications (Trade) Dose Ordered Sig/Jacky Route PRN Reason Start Time Stop Time Status Last Admin Dose Admin Sodium Chloride (NS Flush) 2 ml UNSCH PRN IV FLUSH FLUSH AFTER USING IV ACCESS 10/19/17 02:30 11/13/17 00:10 Sodium Chloride (NS Flush) 2 ml BID IV FLUSH 10/19/17 09:00 11/19/17 21:00 Albuterol Sulfate (Albuterol Neb) 2.5 mg Q2HR NEB PRN INH SOB/WHEEZING 10/19/17 02:30 10/24/17 08:36 Miscellaneous Information ([facility]) 1 [id number] XX 10/19/17 02:30 10/19/17 02:30 Chlorhexidine Gluconate (Chlorhexidine 2% Cloth) Taper DAILY@04 TOP 10/19/17 04:00 10/15/18 03:59 10/27/17 04:00 Ondansetron HCl (Zofran Odt) 4 mg Q6H PRN PO NAUSEA OR VOMITING 10/19/17 02:30 10/29/17 23:44 Artificial Tears (Tears Naturale Opth Soln) 1 drop Q8HR EACH EYE 10/19/17 06:00 11/18/17 21:12 Chlorhexidine Gluconate (Peridex 0.12% Liq) 15 ml BID@08,20 MT 10/19/17 08:00 11/09/17 20:00 Insulin Detemir (Levemir Inj) 5 units Q12HR SQ 10/25/17 10:00 11/20/17 10:07 Amlodipine Besylate (Norvasc) 10 mg DAILY PO 10/26/17 09:00 11/20/17 10:03 Enoxaparin Sodium (Lovenox Inj) 40 mg Q24H SQ 10/26/17 08:00 11/20/17 10:04 Pantoprazole Sodium (Protonix) 40 mg Q12HR PO 10/27/17 21:00 11/20/17 10:03 Hydralazine HCl (Apresoline) 50 mg Q8HR PO 10/27/17 22:00 11/20/17 13:36 Insulin Aspart (NovoLOG SUPPLEMENTAL SCALE) 1 ACHS SLIDING SCALE SQ 10/27/17 17:00 11/19/17 21:52 Nystatin (Mycostatin Powder) 1 applic Q12HR TOPICAL 10/27/17 21:00 11/20/17 10:44 Tramadol HCl (Ultram) 50 mg Q8H PRN PO PAIN 5-10 10/29/17 13:15 11/20/17 12:17 Ceftriaxone Sodium 2000 mg/ Sodium Chloride 100 ml @ 200 mls/hr Q24H IV 10/31/17 13:00 11/29/17 23:00 11/20/17 12:18 Carvedilol (Coreg) 6.25 mg Q12HR PO 11/02/17 21:00 11/20/17 10:03 Alprazolam (Xanax) 0.25 mg Q6HR PRN PO anxiety 11/03/17 12:30 11/20/17 13:36 Acetaminophen (Tylenol) 325 mg Q4H PRN PO Fever > 100.4 11/03/17 18:45 11/12/17 05:21 Cholestyramine Resin (Questran 4 Gm Pkt) 4 gm DAILY PO 11/05/17 09:00 11/20/17 10:05 Lactobacillus Acidophilus (Lactinex) 1 tab Q12HR PO 11/07/17 21:00 11/20/17 10:03 Sodium Chloride (NS Flush) See Protocol DAILY IV FLUSH 11/11/17 09:00 11/20/17 10:44 Heparin Sodium (Porcine) (Heparin Central Flush) See Protocol DAILY IV FLUSH 11/11/17 09:00 11/20/17 10:44 Heparin Sodium (Porcine) (Heparin Central Flush) See Protocol UNSCH PRN IV FLUSH SEE PROTOCOL TABLE 11/10/17 18:00 11/18/17 14:57 Melatonin (Melatonin) 5 mg HS PRN PO INSOMNIA 11/12/17 15:30 11/20/17 00:21 Gabapentin (Neurontin) 100 mg TID PO 11/16/17 18:00 11/20/17 17:13 Prednisone (Deltasone) 20 mg DAILY PO 11/20/17 09:00 11/20/17 10:03 Objective Remarks GENERAL: Well-nourished, well-developed patient. SKIN: Warm and dry. HEAD: Normocephalic. EYES: No scleral icterus. No injection or drainage. NECK: Supple, trachea midline. No JVD or lymphadenopathy. LYMPHATIC: No adenopathy. CARDIOVASCULAR: Regular rate and rhythm without murmurs. RESPIRATORY: Breath sounds equal bilaterally. No accessory muscle use. GASTROINTESTINAL: Abdomen soft, non-tender, nondistended. EXTREMITIES: No cyanosis, or edema. MUSCULOSKELETAL: Adequate muscle tone. NEUROLOGICAL: No obvious focal deficit. Awake, alert, and oriented x3. PSYCHIATRIC: Appropriate mood and affect; insight and judgment normal. Assessment/Plan Problem List: (1) Microcytic anemia ICD Codes: D50.9 - Iron deficiency anemia, unspecified Plan: --Hemoglobin stable at 8.8. --Likely multifactorial due to sepsis +inflammation and underlying sickle cell trait. --Iron studies were done after patient received blood transfusions--> difficult to interpret. --No sign of hemolysis --hemoglobin electrophoresis showed sickle cell trait. --SPEP shows no monoclonal protein. (2) Sepsis ICD Codes: A41.9 - Sepsis, unspecified organism Status: Resolved Plan: --SHASHI shows mitral valve regurgitation, aortic valve regurgitation and vegetation --ID following --Blood cultures have been negative so far (3) Leukocytosis ICD Codes: D72.829 - Elevated white blood cell count, unspecified Status: Acute Plan: Due to inflammatory process and steroid. WBC is stable. (4) Thrombocytosis ICD Codes: D47.3 - Essential (hemorrhagic) thrombocythemia Status: Acute Plan: Due to underlying inflammatory process. Platelet count has trended down slightly. Assessment 42 y/o male admitted with DKA and sepsis; hematology consulted for anemia Plan 1. Monitor CBC periodically. 2. continue antibiotics per infectious disease. Presley Lux MD Nov 20, 2017 17:34
--- NOTE | 2017-11-20 19:34 | HHI.PR ---
Subjective Remarks 42 YOAA male with Bipolar disorder, Lung infilt, fever Denies sob no CP BX Organising Pn, eiosinophilic pn Breathing better " I walked in the hallway" Prednisone decreased 20 mg daily. Objective Vital Signs Vital Signs Date Time Temp Pulse Resp B/P (MAP) Pulse Ox O2 Delivery O2 Flow Rate FiO2 11/20/17 16:29 99.0 97 17 119/65 (83) 98 11/20/17 12:13 99.0 90 17 121/57 (78) 98 11/20/17 08:11 99.0 89 16 115/55 (75) 97 11/20/17 04:08 80 11/20/17 04:00 Room Air 11/20/17 04:00 99.2 84 16 119/58 (78) 97 11/20/17 00:22 83 11/20/17 00:00 99.0 93 16 133/70 (91) 98 11/20/17 00:00 Room Air 11/19/17 23:54 18 11/19/17 21:50 Room Air 11/19/17 20:49 21 11/19/17 20:03 85 11/19/17 20:00 99.3 91 20 136/107 (117) 97 I/O 11/19/17 11/19/17 11/19/17 11/20/17 11/20/17 11/20/17 07:00 15:00 23:00 07:00 15:00 23:00 Intake Total 120 ml 1440 ml 875 ml 480 ml Output Total 1400 ml 1225 ml Balance -1280 ml 1440 ml -350 ml 480 ml Intake Oral 120 ml 1440 ml 360 ml 480 ml IV Total 515 ml Output Urine Total 1400 ml 1225 ml # Voids 4 1 # Bowel Movements 0 1 0 Result Diagram: 11/20/17 0625 11/20/17 0625 Objective Remarks GENERAL: WBWN AA male, NAD SKIN: Warm and dry. HEAD: Normocephalic. EYES: No scleral icterus. No injection or drainage. NECK: Supple, trachea midline. No JVD or lymphadenopathy. CARDIOVASCULAR: Regular rate and rhythm without murmurs, gallops, or rubs. RESPIRATORY: Breath sounds equal bilaterally. No accessory muscle use. GASTROINTESTINAL: Abdomen soft, non-tender, nondistended. MUSCULOSKELETAL: No cyanosis, or edema. BACK: Nontender without obvious deformity. No CVA tenderness. A/P Assessment and Plan IMPRESSION: 1. Bilateral lung infiltrate with ongoing fever. He has been treated with antibiotic. Cultures have been negative. Possibility of inflammatory process of the lung or alveolitis. 2. Diabetes mellitus. 3. Renal insufficiency has improved. 4. Benign prostatic hypertrophy. 5. Bipolar disorder. 6. Organising Pn, eiosinophilic Pn PLAN: Cont Abx per ID, Rocephin and Vanco until 11/29 DW Pt PO Steroids Stable from Pulm standpoint Han Gonsalves MD Nov 20, 2017 19:33
[2017-11-20] MEDS: VANCOMYCIN INJ 1,750 MG in SODIUM CHLORID 0.9% 500 ML INJ 500 ML IV SCH (21:26)
[2017-11-21] VITALS (11 sets, daily range): BP systolic 114–146; BP diastolic 63–79; PULSE 82–95; RESP 16–18; TEMP 97.3–98.9; O2SAT 97–99
[2017-11-21] MEDS: MELATONIN 5 MG TAB PO PRN (00:04)
[2017-11-21] MEDS: CHLORHEXIDINE GLUCONATE 2 % 1 PACK (2 CLOTHS) TOP SCH (03:38)
[2017-11-21] MEDS: ARTIFICIAL TEARS OPTH SOLN 15 ML BTL EACH EYE SCH ×3 (05:02→20:28)
[2017-11-21] MEDS: hydrALAZINE HCL 50 MG TAB PO SCH ×3 (05:02→22:00)
[2017-11-21] MEDS: CHLORHEXIDINE 0.12% (ORAL KIT) 15 ML CUP MT SCH ×2 (07:40→20:00)
[2017-11-21] MEDS: INSULIN ASPART SUPPLEMENTAL SCALE SQ SCH ×4 (08:00→20:27)
[2017-11-21] MEDS: CARVEDILOL 6.25 MG TAB PO SCH ×2 (08:40→20:27)
[2017-11-21] MEDS: predniSONE 20 MG TAB PO SCH (08:40)
[2017-11-21] MEDS: ENOXAPARIN SODIUM 40 MG/0.4 ML SYRINGE SQ SCH (08:40)
[2017-11-21] MEDS: SODIUM CHLORIDE 0.9% FLUSH 10 ML FLUSH IV FLUSH SCH ×3 (08:40→20:28)
[2017-11-21] MEDS: PANTOPRAZOLE SOD 40 MG DELAYED RELEASE TAB PO SCH ×2 (08:41→20:27)
[2017-11-21] MEDS: LACTOBACILLUS ACIDOPHILUS TAB PO SCH ×2 (08:41→20:27)
[2017-11-21] MEDS: INSULIN DETEMIR 100 UNITS/ML VIAL SQ SCH ×2 (08:41→20:27)
[2017-11-21] MEDS: CHOLESTYRAMINE 4 GM PACKET PO SCH (08:41)
[2017-11-21] MEDS: GABAPENTIN 100 MG CAP PO SCH ×3 (08:41→18:14)
[2017-11-21] MEDS: NYSTATIN 100,000 U/GM PWD 15 GM BTL TOPICAL SCH ×2 (08:42→20:28)
[2017-11-21] MEDS: VANCOMYCIN INJ 1,750 MG in SODIUM CHLORID 0.9% 500 ML INJ 500 ML IV SCH ×2 (08:42→22:14)
[2017-11-21] MEDS: ALPRAZolam 0.25 MG TAB PO PRN ×2 (08:42→18:15)
[2017-11-21] MEDS: traMADol HCL 50 MG TAB PO PRN ×2 (08:43→18:15)
--- NOTE | 2017-11-21 11:20 | HHI.PR ---
Subjective Remarks The patient is bed no acute events overnight. Vital signs stable. Objective Vitals Vital Signs Date Time Temp Pulse Resp B/P (MAP) Pulse Ox O2 Delivery O2 Flow Rate FiO2 11/21/17 09:43 18 11/21/17 08:10 98.4 89 17 146/65 (92) 98 11/21/17 04:00 98.7 93 16 129/75 (93) 98 11/21/17 04:00 Room Air 11/21/17 04:00 82 11/21/17 00:00 85 11/21/17 00:00 Room Air 11/21/17 00:00 98.9 85 16 114/64 (81) 97 11/20/17 20:00 96 11/20/17 20:00 Room Air 11/20/17 20:00 99.6 93 17 133/72 (92) 99 11/20/17 16:29 99.0 97 17 119/65 (83) 98 11/20/17 16:00 89 11/20/17 12:13 99.0 90 17 121/57 (78) 98 11/20/17 12:00 88 I/O 11/20/17 11/20/17 11/20/17 11/21/17 11/21/17 11/21/17 07:00 15:00 23:00 07:00 15:00 23:00 Intake Total 875 ml 480 ml 1717.5 ml Output Total 1225 ml 950 ml Balance -350 ml 480 ml 767.5 ml Intake Oral 360 ml 480 ml 1200 ml IV Total 515 ml 517.5 ml Output Urine Total 1225 ml 950 ml # Voids 1 1 # Bowel Movements 0 1 Result Diagram: 11/20/17 0625 11/20/17 0625 Imaging Last Impressions Chest X-Ray 11/15/17 0000 Signed Impressions: CONCLUSION: 1. Improved aeration of the lungs compared to the previous examination with mi ld scattered infiltrates still noted. Lower Extremity Ultrasound 11/09/17 0000 Signed Impressions: CONCLUSION: 1. There is nonocclusive thrombus within the right common femoral vein. 2. The remaining veins of the right lower extremity are patent. Abdomen MRI 11/03/17 0000 Signed Impressions: CONCLUSION: 1. Nonspecific heterogeneous signal and enhancement pattern of the liver as de scribed above and not convincingly changed from the prior CT. This is not parti cularly masslike or with organized fluid. A transient phenomenon related to hep atomegaly and/or hepatocellular disease is thought most likely. Hepatic abscess es are considered unlikely. 2. Small spleen and it also has diffusely heterogeneous signal and enhancement . Acute or subacute superimposed on chronic splenic infarcts are considered mos t likely. No significant change from the CT. In addition, no particularly mass like area and also no evidence of organized fluid so splenic abscesses are cons idered less likely. Abdomen/Pelvis CT 10/27/17 Signed Impressions: CONCLUSION: 1. No evidence of retroperitoneal hemorrhage. 2. Bibasilar subsegmental airspace disease and small bilateral effusions. 3. Patchy areas of hypodensity throughout the liver and spleen of uncertain et iology. Considering patient's history a septic vascular embolic process should be considered. 4. Minimal air in the urinary bladder. 5. Developing anasarca. Chest CT 10/25/17 Addendum Impressions: CONCLUSION: 1. Multiple bilateral scattered interstitial and airspace infiltrates througho ut both lung yuen suggestive of some type of inflammatory process. 2. Abnormal appearance of the liver. Recommend CT scan of the abdomen with IV contrast for further evaluation. Brain MRI 10/25/17 Signed Impressions: CONCLUSION: 1. Unremarkable MRI examination of the brain. Specifically, no cerebral edema or diffusion abnormality to suggest encephalitis. Head CT 10/24/17 Signed Impressions: CONCLUSION: 1. No acute intracranial abnormality. Gall Bladder Ultrasound 10/23/17 Signed Impressions: CONCLUSION: 1. There is increased echogenicity of the liver suggestive of fatty infiltrati on and/or hepatocellular disease. 2. No evidence of gallstones or biliary tract obstruction. Renal Ultrasound 10/19/17 Signed Impressions: Service Date/Time: Thursday, October 19, 2017 09:46 - CONCLUSION: Normal examination. Alexx Baig MD Objective Remarks GENERAL: 42 yo M appears in NAD CARDIOVASCULAR: Regular rate and rhythm without murmurs, gallops, or rubs. RESPIRATORY: Breath sounds equal bilaterally. No accessory muscle use. GASTROINTESTINAL: Abdomen soft, non-tender, nondistended. MUSCULOSKELETAL: No cyanosis, or edema. BACK: Nontender without obvious deformity. No CVA tenderness. Date of Insertion: October 19, 2017 A/P Problem List: (1) Acute respiratory failure ICD Code: J96.00 - Acute respiratory failure, unspecified whether with hypoxia or hypercapnia (2) Acute encephalopathy ICD Code: G93.40 - Encephalopathy, unspecified Status: Acute (3) Normocytic anemia ICD Code: D64.9 - Anemia, unspecified (4) Lactic acidosis ICD Code: E87.2 - Acidosis Status: Acute (5) Hypoalbuminemia ICD Code: E88.09 - Other disorders of plasma-protein metabolism, not elsewhere classified (6) Hypophosphatemia ICD Code: E83.39 - Other disorders of phosphorus metabolism Status: Acute (7) Hypokalemia ICD Code: E87.6 - Hypokalemia Status: Acute (8) Hypermagnesemia ICD Code: E83.41 - Hypermagnesemia (9) Acute kidney injury ICD Code: N17.9 - Acute kidney failure, unspecified Status: Acute (10) Leukocytosis ICD Code: D72.829 - Elevated white blood cell count, unspecified Status: Acute (11) Hyponatremia ICD Code: E87.1 - Hypo-osmolality and hyponatremia Status: Acute (12) Hypertension ICD Code: I10 - Essential (primary) hypertension (13) Pyrexia ICD Code: R50.9 - Fever, unspecified Status: Acute (14) Depression ICD Code: F32.9 - Major depressive disorder, single episode, unspecified (15) Ketoacidosis due to secondary diabetes ICD Code: E13.10 - Other specified diabetes mellitus with ketoacidosis without coma Status: Acute (16) BMI 37.0-37.9, adult ICD Code: Z68.37 - Body mass index (BMI) 37.0-37.9, adult Status: Acute Assessment and Plan 42-year-old man with: Endocarditis, sepsis, fevers Patient has multiple embolic lesions, SHASHI shows aortic valve vegetation 0.7 x 0.8 cm Infectious disease recommends staying with Rocephin and vancomycin for now, patient will need antibiotics until possible November 29, 2017. Appreciate infectious disease consult Appreciate cardiology workup Hypertension Continue Norvasc, Coreg,and hydralazine. Anxiety Continue Xanax Acute hypoxic and hypercarbic respiratory failure Bilateral pulmonary infiltrate Extubated 10/24/2017, doing well on nasal cannula oxygen Pulmonology consulted for abnormalities on imaging Status post bronchoscopy 11/07/17 pending cytology and culture report Follow-up CHEST X-RAY November 07, 2017 showed significant improvement of aeration in the lungs Upper GI bleed Gastroenterology signed off Continue pantoprazole Right lower extremity pain Nonocclusive thrombus and currently on 40 subcu of Lovenox daily, discharge home on Eliquis when ready to leave the hospital Doppler + DVT Acute hyperglycemic state Continue sliding-scale insulin with Accu-Cheks Continue Levemir 5 U q12h, hemoglobin A1c 13. Diabetic diet Tinea cruris Continue nystatin Insomnia start melatonin hS Neuropathy. Start gabapentin. DVT prophylaxis Lovenox DC plan: patient with endocarditis with spikes of fevers, needs IV abx. ID consulted patient will need antibiotics until possible November 29, 2017. DC when improved and cleared by consultants. Problem Qualifiers (1) Acute respiratory failure: Qualified Codes: J96.01 - Acute respiratory failure with hypoxia; J96.02 - Acute respiratory failure with hypercapnia (2) Pyrexia: Qualified Codes: R50.9 - Fever, unspecified (3) Depression: Qualified Codes: F32.9 - Major depressive disorder, single episode, unspecified Shante Luke MD Nov 21, 2017 11:20
[2017-11-21] MEDS: cefTRIAXone INJ 2,000 MG in SODIUM CHLORIDE 0.9% INJ 100 ML IV SCH (13:18)
--- NOTE | 2017-11-21 13:21 | HHI.IDPN ---
Subjective Subjective Remarks Patient is a 42-year-old male, brought into the hospital for evaluation of multiple symptoms. He apparently has been having problem with poor p.o. intake , and thirst and increasing fluid intake. There is also mention that he has had problem with nausea and vomiting and some confusion. The symptoms have been going on for about a month. Was brought into the emergency room, and he was found to have a blood sugar of 1800, creatinine was up to 3, sodium 21, and he has multiple abnormal electrolytes. He also had acidosis, and high fevers. His white count was elevated. In the ED he became more unresponsive, and he ended up getting intubated. He was initially on pressors. He was also found to have a very elevated CPK. His electrolytes stabilized, and his acidosis improved. Creatinine improved, and he has improvement in his urine output. He had 2 blood cultures done and those are negative. He was started on empiric antibiotics for possible aspiration. Initial urinalysis was unremarkable. Patient remains on the vent. His mental status still has not improved. Neurology has been consulted. Patient's temperatures seem to have improved. His chest x-ray showing bilateral pulmonary infiltrates and some nodular infiltrates. He has been getting vancomycin, cefepime, and Flagyl. His CPKs are still elevated, and his LFTs were also elevated. Patient also during his hospitalization had episode of V. tach and was resuscitated successfully. Infectious disease consultation has been requested to evaluate patient with high fevers. Notes reviewed Temps ok Good sats on RA No new complaints Clinically doing well from ID standpoint Antibiotics Rocephin Vancomycin Current Medications Medications (Trade) Dose Ordered Sig/Jacky Route Start Time Stop Time Status Last Admin (NS Flush) 2 ml UNSCH PRN IV FLUSH 10/19/17 02:30 11/13/17 00:10 (NS Flush) 2 ml BID IV FLUSH 10/19/17 09:00 11/21/17 08:40 (Albuterol Neb) 2.5 mg Q2HR NEB PRN INH 10/19/17 02:30 10/24/17 08:36 ([facility] [place] Nursing Information) 1 Q361D XX 10/19/17 02:30 10/19/17 02:30 (Chlorhexidine 2% Cloth) Taper DAILY@04 TOP 10/19/17 04:00 10/15/18 03:59 10/27/17 04:00 (Chlorhexidine 2% Cloth) 3 pack UNSCH PRN TOP 10/19/17 02:30 (Milk Of Magnesia Liq) 30 ml Q12H PRN PO 10/19/17 02:30 Future Hold (Senokot) 17.2 mg Q12H PRN PO 10/19/17 02:30 Future Hold (Dulcolax Supp) 10 mg DAILY PRN RECTAL 10/19/17 02:30 (Zofran Odt) 4 mg Q6H PRN PO 10/19/17 02:30 10/29/17 23:44 (Tears Naturale Opth Soln) 1 drop Q8HR EACH EYE 10/19/17 06:00 11/20/17 21:29 (Peridex 0.12% Liq) 15 ml BID@08,20 MT 10/19/17 08:00 11/09/17 20:00 (Brethine Inj) 1 mg UNSCH PRN SQ 10/19/17 07:45 (Lactulose Liq) 30 ml DAILY PRN PO 10/23/17 21:30 Future Hold (D50w (Vial) Inj) 50 ml UNSCH PRN IV PUSH 10/24/17 21:00 (Glucagon Inj) 1 mg UNSCH PRN OTHER 10/24/17 21:00 (Levemir Inj) 5 units Q12HR SQ 10/25/17 10:00 11/21/17 08:41 (Norvasc) 10 mg DAILY PO 10/26/17 09:00 11/21/17 08:41 (Lovenox Inj) 40 mg Q24H SQ 10/26/17 08:00 11/21/17 08:40 (Protonix) 40 mg Q12HR PO 10/27/17 21:00 11/21/17 08:41 (Apresoline) 50 mg Q8HR PO 10/27/17 22:00 11/21/17 13:18 (NovoLOG SUPPLEMENTAL SCALE) 1 ACHS SLIDING SCALE SQ 10/27/17 17:00 11/20/17 21:28 (Mycostatin Powder) 1 applic Q12HR TOPICAL 10/27/17 21:00 11/21/17 08:42 (Ultram) 50 mg Q8H PRN PO 10/29/17 13:15 11/21/17 08:43 Pharmacy Profile Note 0 ml @ 0 mls/hr UNSCH OTHER 10/31/17 12:00 Ceftriaxone Sodium 2000 mg/ Sodium Chloride 100 ml @ 200 mls/hr Q24H IV 10/31/17 13:00 11/29/17 23:00 11/21/17 13:18 (Coreg) 6.25 mg Q12HR PO 11/02/17 21:00 11/21/17 08:40 (Xanax) 0.25 mg Q6HR PRN PO 11/03/17 12:30 11/21/17 08:42 (Tylenol) 325 mg Q4H PRN PO 11/03/17 18:45 11/12/17 05:21 (Questran 4 Gm Pkt) 4 gm DAILY PO 11/05/17 09:00 11/21/17 08:41 (Librium) 50 mg TID PRN PO 11/05/17 13:15 (Lactinex) 1 tab Q12HR PO 11/07/17 21:00 11/21/17 08:41 (NS Flush) See Protocol DAILY IV FLUSH 11/11/17 09:00 11/20/17 10:44 (NS Flush) See Protocol UNSCH PRN IV FLUSH 11/10/17 18:00 (Heparin Central Flush) See Protocol DAILY IV FLUSH 11/11/17 09:00 11/21/17 08:40 (Heparin Central Flush) See Protocol UNSCH PRN IV FLUSH 11/10/17 18:00 11/18/17 14:57 (NS Flush) UNSCH PRN IV FLUSH 11/10/17 18:00 (Melatonin) 5 mg HS PRN PO 11/12/17 15:30 11/21/17 00:04 (Neurontin) 100 mg TID PO 11/16/17 18:00 11/21/17 13:18 (Deltasone) 20 mg DAILY PO 11/20/17 09:00 11/21/17 08:40 Vancomycin HCl 1750 mg/Sodium Chloride 517.5 ml @ 250 mls/hr Q12H IV 11/20/17 22:00 11/21/17 08:42 ([facility] [place] Pharm[facility] Ordered Lab Info) SPECIFIC LAB TO BE ... ONCE ONCE .XX 11/22/17 09:45 11/22/17 09:46 Lines PICC no evidence of infection Past Medical History Depression/anxiety Hypertension NSAID use Allergies: Coded Allergies: No Known Allergies (Unverified Allergy, Unknown, 10/18/17) Objective . Vital Signs Date Time Temp Pulse Resp B/P (MAP) Pulse Ox O2 Delivery O2 Flow Rate FiO2 11/21/17 12:04 98.9 92 17 121/66 (84) 97 11/21/17 09:43 18 11/21/17 08:10 98.4 89 17 146/65 (92) 98 11/21/17 08:00 Room Air 11/21/17 04:00 98.7 93 16 129/75 (93) 98 11/21/17 04:00 Room Air 11/21/17 04:00 82 11/21/17 00:00 85 11/21/17 00:00 Room Air 11/21/17 00:00 98.9 85 16 114/64 (81) 97 11/20/17 20:00 96 11/20/17 20:00 Room Air 11/20/17 20:00 99.6 93 17 133/72 (92) 99 11/20/17 16:29 99.0 97 17 119/65 (83) 98 11/20/17 16:00 89 . Laboratory Tests Test 11/20/17 06:25 White Blood Count 17.8 TH/MM3 Red Blood Count 3.28 MIL/MM3 Hemoglobin 8.8 GM/DL Hematocrit 26.4 % Mean Corpuscular Volume 80.6 FL Mean Corpuscular Hemoglobin 26.9 PG Mean Corpuscular Hemoglobin Concent 33.3 % Red Cell Distribution Width 16.4 % Platelet Count 566 TH/MM3 Mean Platelet Volume 7.7 FL Neutrophils (%) (Auto) 67.9 % Lymphocytes (%) (Auto) 21.6 % Monocytes (%) (Auto) 9.2 % Eosinophils (%) (Auto) 1.0 % Basophils (%) (Auto) 0.3 % Neutrophils # (Auto) 12.1 TH/MM3 Lymphocytes # (Auto) 3.9 TH/MM3 Monocytes # (Auto) 1.6 TH/MM3 Eosinophils # (Auto) 0.2 TH/MM3 Basophils # (Auto) 0.1 TH/MM3 CBC Comment DIFF FINAL Differential Comment Laboratory Tests Test 11/20/17 06:25 Creatinine 0.86 MG/DL Estimat Glomerular Filtration Rate 119 ML/MIN Imaging Chest X-Ray 11/15/17 Signed Impressions: CONCLUSION: 1. Improved aeration of the lungs compared to the previous examination with mi ld scattered infiltrates still noted. Lower Extremity Ultrasound 11/09/17 Signed Impressions: CONCLUSION: 1. There is nonocclusive thrombus within the right common femoral vein. 2. The remaining veins of the right lower extremity are patent. Abdomen MRI 11/03/17 Signed Impressions: CONCLUSION: 1. Nonspecific heterogeneous signal and enhancement pattern of the liver as de scribed above and not convincingly changed from the prior CT. This is not parti cularly masslike or with organized fluid. A transient phenomenon related to hep atomegaly and/or hepatocellular disease is thought most likely. Hepatic abscess es are considered unlikely. 2. Small spleen and it also has diffusely heterogeneous signal and enhancement . Acute or subacute superimposed on chronic splenic infarcts are considered mos t likely. No significant change from the CT. In addition, no particularly mass like area and also no evidence of organized fluid so splenic abscesses are cons idered less likely. Abdomen/Pelvis CT 10/27/17 Signed Impressions: CONCLUSION: 1. No evidence of retroperitoneal hemorrhage. 2. Bibasilar subsegmental airspace disease and small bilateral effusions. 3. Patchy areas of hypodensity throughout the liver and spleen of uncertain et iology. Considering patient's history a septic vascular embolic process should be considered. 4. Minimal air in the urinary bladder. 5. Developing anasarca. Chest CT 10/25/17 Signed Impressions: CONCLUSION: 1. Multiple bilateral scattered interstitial and airspace infiltrates througho ut both lung yuen suggestive of some type of inflammatory process. 2. Abnormal appearance of the liver. Recommend CT scan of the abdomen with IV contrast for further evaluation. Brain MRI 10/25/17 Signed Impressions: CONCLUSION: 1. Unremarkable MRI examination of the brain. Specifically, no cerebral edema or diffusion abnormality to suggest encephalitis. Head CT 10/24/17 Signed Impressions: CONCLUSION: 1. No acute intracranial abnormality. Gall Bladder Ultrasound 10/23/17 Signed Impressions: CONCLUSION: 1. There is increased echogenicity of the liver suggestive of fatty infiltrati on and/or hepatocellular disease. 2. No evidence of gallstones or biliary tract obstruction. Renal Ultrasound 5/18/18 0000 Signed Impressions: Service Date/Time: Thursday, October 19, 2017 09:46 - CONCLUSION: Normal examination. Alexx Baig MD Physical Exam GENERAL: Awake and alert, NAD. SKIN: Cool and dry. No generalized rash. HEAD: Atraumatic. Normocephalic. No temporal wasting, or tenderness. EYES: [place] conjunctiva. No petechia or hemorrhage. Has dirty sclera. EARS, NOSE AND THROAT: Nose without bleeding or purulent nasal discharge. Moist mucosa NECK: Trachea midline. Supple and not tender, no meningeal signs CARDIOVASCULAR: Regular rate and rhythm. No murmurs, rubs or gallops heard RESPIRATORY: Decreased BS at bases ABDOMEN: Distended, mild tenderness, not guarding, bowel sounds present and hypoactive. EXTREMITIES: Warm, has pitting edema. NEUROLOGICAL: Grossly non-focal PSYCHIATRIC: Calm and cooperative LINE: No evidence of infection Assessment & Plan Remarks IMPRESSION Possible sepsis on initial presentation with fevers, dec LOC, MOSF - better - source possible lung, has aishwarya nodular infiltrates, BC negative, no sputum C/S - possibly initial source is his endocarditis - he has been on Abx sonce 10/19 Has multiple embolic lesions, source? IE - his BC have been negative - SHASHI with small AV vegetation Endocarditis - C/S have been negative on admission - ?Culture negative endocarditis Aishwarya pulmonary infiltrates, etiology? - biopsy suggestive of eosinophilic PNA, organizing PNA DM, DKA Elevated CPK, resolved Elevated LFTs, improving Renal failure, resolved Acidosis, resolved Encephalopathy, ?metabolic, or [employer] etiology, resolved Leukocytosis, improving Anemia, stable Fevers, better, ?due to thrombus - ?better due to steroids RECOMMENDATION Continue Rocephin Continue Vancomycin Plan to give Abx until November 29 Monitor progress Seems clinically improving from ID standpoint Haley Sanchez MD Nov 21, 2017 13:21
--- NOTE | 2017-11-21 20:56 | HHI.PR ---
Subjective Remarks 42 YOAA male with Bipolar disorder, Lung infilt, fever Denies sob no CP BX Organising Pn, eiosinophilic pn Breathing better Objective Vital Signs Vital Signs Date Time Temp Pulse Resp B/P (MAP) Pulse Ox O2 Delivery O2 Flow Rate FiO2 11/21/17 20:00 98.1 91 18 133/79 (97) 99 11/21/17 16:00 90 11/21/17 14:05 97.3 95 18 125/63 (83) 99 11/21/17 12:04 98.9 92 17 121/66 (84) 97 11/21/17 12:00 89 11/21/17 09:43 18 11/21/17 08:10 98.4 89 17 146/65 (92) 98 11/21/17 08:00 Room Air 11/21/17 08:00 90 11/21/17 04:00 98.7 93 16 129/75 (93) 98 11/21/17 04:00 Room Air 11/21/17 04:00 82 11/21/17 00:00 85 11/21/17 00:00 Room Air 11/21/17 00:00 98.9 85 16 114/64 (81) 97 I/O 11/20/17 11/20/17 11/20/17 11/21/17 11/21/17 11/21/17 07:00 15:00 23:00 07:00 15:00 23:00 Intake Total 875 ml 480 ml 1717.5 ml 720 ml Output Total 1225 ml 950 ml Balance -350 ml 480 ml 767.5 ml 720 ml Intake Oral 360 ml 480 ml 1200 ml 720 ml IV Total 515 ml 517.5 ml Output Urine Total 1225 ml 950 ml # Voids 1 1 3 # Bowel Movements 0 1 1 Result Diagram: 11/20/17 0625 11/20/17 0625 Objective Remarks GENERAL: WBWN AA male, NAD SKIN: Warm and dry. HEAD: Normocephalic. EYES: No scleral icterus. No injection or drainage. NECK: Supple, trachea midline. No JVD or lymphadenopathy. CARDIOVASCULAR: Regular rate and rhythm without murmurs, gallops, or rubs. RESPIRATORY: Breath sounds equal bilaterally. No accessory muscle use. GASTROINTESTINAL: Abdomen soft, non-tender, nondistended. MUSCULOSKELETAL: No cyanosis, or edema. BACK: Nontender without obvious deformity. No CVA tenderness. A/P Assessment and Plan IMPRESSION: 1. Bilateral lung infiltrate with ongoing fever. He has been treated with antibiotic. Cultures have been negative. Possibility of inflammatory process of the lung or alveolitis. 2. Diabetes mellitus. 3. Renal insufficiency has improved. 4. Benign prostatic hypertrophy. 5. Bipolar disorder. 6. Organising Pn, eiosinophilic Pn PLAN: Cont Abx per ID, Rocephin and Vanco until 11/29 DW Pt PO Steroids Stable from Pulm standpoint Han Gonsalves MD Nov 21, 2017 20:55
[2017-11-22] VITALS (10 sets, daily range): BP systolic 119–144; BP diastolic 66–92; PULSE 85–101; RESP 16–18; TEMP 98.6–99.6; O2SAT 95–99
[2017-11-22] MEDS: MELATONIN 5 MG TAB PO PRN (00:52)
[2017-11-22] MEDS: CHLORHEXIDINE GLUCONATE 2 % 1 PACK (2 CLOTHS) TOP SCH (03:29)
[2017-11-22] MEDS: ARTIFICIAL TEARS OPTH SOLN 15 ML BTL EACH EYE SCH ×3 (06:00→22:00)
[2017-11-22] MEDS: hydrALAZINE HCL 50 MG TAB PO SCH ×3 (06:00→22:16)
[2017-11-22] MEDS: CHLORHEXIDINE 0.12% (ORAL KIT) 15 ML CUP MT SCH ×2 (08:00→19:21)
[2017-11-22] MEDS: INSULIN ASPART SUPPLEMENTAL SCALE SQ SCH ×4 (08:00→21:00)
[2017-11-22] MEDS: ENOXAPARIN SODIUM 40 MG/0.4 ML SYRINGE SQ SCH (08:45)
[2017-11-22] MEDS: traMADol HCL 50 MG TAB PO PRN ×2 (08:47→22:16)
[2017-11-22] MEDS: predniSONE 20 MG TAB PO SCH (08:49)
[2017-11-22] MEDS: PANTOPRAZOLE SOD 40 MG DELAYED RELEASE TAB PO SCH ×2 (08:49→22:17)
[2017-11-22] MEDS: CARVEDILOL 6.25 MG TAB PO SCH ×2 (08:49→22:16)
[2017-11-22] MEDS: LACTOBACILLUS ACIDOPHILUS TAB PO SCH ×2 (08:50→22:17)
[2017-11-22] MEDS: CHOLESTYRAMINE 4 GM PACKET PO SCH (08:50)
[2017-11-22] MEDS: GABAPENTIN 100 MG CAP PO SCH ×3 (08:50→17:00)
[2017-11-22] MEDS: SODIUM CHLORIDE 0.9% FLUSH 10 ML FLUSH IV FLUSH SCH ×3 (08:51→22:17)
[2017-11-22] MEDS: INSULIN DETEMIR 100 UNITS/ML VIAL SQ SCH ×2 (08:52→22:18)
[2017-11-22] MEDS: NYSTATIN 100,000 U/GM PWD 15 GM BTL TOPICAL SCH ×2 (08:57→21:00)
[2017-11-22] MEDS ORDERED: PHARMACY ORDERED LAB ONE (09:45)
[2017-11-22] MEDS: ALPRAZolam 0.25 MG TAB PO PRN ×2 (09:58→22:17)
[2017-11-22] MEDS: VANCOMYCIN INJ 1,750 MG in SODIUM CHLORID 0.9% 500 ML INJ 500 ML IV SCH (09:58)
[2017-11-22] MEDS: cefTRIAXone INJ 2,000 MG in SODIUM CHLORIDE 0.9% INJ 100 ML IV SCH (12:40)
--- NOTE | 2017-11-22 14:18 | HHI.PR ---
Subjective Remarks In not acute distress. No events overnight. Vital signs are stable Objective Vitals Vital Signs Date Time Temp Pulse Resp B/P (MAP) Pulse Ox O2 Delivery O2 Flow Rate FiO2 11/22/17 11:32 Room Air 11/22/17 10:52 98 21 11/22/17 10:25 Room Air 11/22/17 08:00 93 11/22/17 04:00 98.8 93 18 144/86 (105) 97 11/22/17 03:44 85 11/22/17 00:00 Room Air 11/22/17 00:00 99.6 95 18 135/74 (94) 99 11/21/17 21:41 99 11/21/17 20:00 98.1 91 18 133/79 (97) 99 11/21/17 20:00 Room Air 11/21/17 19:45 88 11/21/17 16:00 90 I/O 11/21/17 11/21/17 11/21/17 11/22/17 11/22/17 11/22/17 07:00 15:00 23:00 07:00 15:00 23:00 Intake Total 1717.5 ml 720 ml 757.5 ml Output Total 950 ml 1600 ml Balance 767.5 ml 720 ml -842.5 ml Intake Oral 1200 ml 720 ml 240 ml IV Total 517.5 ml 517.5 ml Output Urine Total 950 ml 1600 ml # Voids 1 3 # Bowel Movements 1 1 0 Result Diagram: 11/20/17 0625 11/20/17 0625 Imaging Last Impressions Chest X-Ray 11/15/17 0000 Signed Impressions: CONCLUSION: 1. Improved aeration of the lungs compared to the previous examination with mi ld scattered infiltrates still noted. Lower Extremity Ultrasound 11/09/17 0000 Signed Impressions: CONCLUSION: 1. There is nonocclusive thrombus within the right common femoral vein. 2. The remaining veins of the right lower extremity are patent. Abdomen MRI 11/03/17 0000 Signed Impressions: CONCLUSION: 1. Nonspecific heterogeneous signal and enhancement pattern of the liver as de scribed above and not convincingly changed from the prior CT. This is not parti cularly masslike or with organized fluid. A transient phenomenon related to hep atomegaly and/or hepatocellular disease is thought most likely. Hepatic abscess es are considered unlikely. 2. Small spleen and it also has diffusely heterogeneous signal and enhancement . Acute or subacute superimposed on chronic splenic infarcts are considered mos t likely. No significant change from the CT. In addition, no particularly mass like area and also no evidence of organized fluid so splenic abscesses are cons idered less likely. Abdomen/Pelvis CT 10/27/17 Signed Impressions: CONCLUSION: 1. No evidence of retroperitoneal hemorrhage. 2. Bibasilar subsegmental airspace disease and small bilateral effusions. 3. Patchy areas of hypodensity throughout the liver and spleen of uncertain et iology. Considering patient's history a septic vascular embolic process should be considered. 4. Minimal air in the urinary bladder. 5. Developing anasarca. Chest CT 10/25/17 Addendum Impressions: CONCLUSION: 1. Multiple bilateral scattered interstitial and airspace infiltrates througho ut both lung yuen suggestive of some type of inflammatory process. 2. Abnormal appearance of the liver. Recommend CT scan of the abdomen with IV contrast for further evaluation. Brain MRI 10/25/17 Signed Impressions: CONCLUSION: 1. Unremarkable MRI examination of the brain. Specifically, no cerebral edema or diffusion abnormality to suggest encephalitis. Head CT 10/24/17 Signed Impressions: CONCLUSION: 1. No acute intracranial abnormality. Gall Bladder Ultrasound 10/23/17 Signed Impressions: CONCLUSION: 1. There is increased echogenicity of the liver suggestive of fatty infiltrati on and/or hepatocellular disease. 2. No evidence of gallstones or biliary tract obstruction. Renal Ultrasound 10/19/17 Signed Impressions: Service Date/Time: Thursday, October 19, 2017 09:46 - CONCLUSION: Normal examination. Alexx Baig MD Objective Remarks GENERAL: 42 yo M appears in NAD CARDIOVASCULAR: Regular rate and rhythm without murmurs, gallops, or rubs. RESPIRATORY: Breath sounds equal bilaterally. No accessory muscle use. GASTROINTESTINAL: Abdomen soft, non-tender, nondistended. MUSCULOSKELETAL: No cyanosis, or edema. BACK: Nontender without obvious deformity. No CVA tenderness. Date of Insertion: October 19, 2017 A/P Problem List: (1) Acute respiratory failure ICD Code: J96.00 - Acute respiratory failure, unspecified whether with hypoxia or hypercapnia (2) Acute encephalopathy ICD Code: G93.40 - Encephalopathy, unspecified Status: Acute (3) Normocytic anemia ICD Code: D64.9 - Anemia, unspecified (4) Lactic acidosis ICD Code: E87.2 - Acidosis Status: Acute (5) Hypoalbuminemia ICD Code: E88.09 - Other disorders of plasma-protein metabolism, not elsewhere classified (6) Hypophosphatemia ICD Code: E83.39 - Other disorders of phosphorus metabolism Status: Acute (7) Hypokalemia ICD Code: E87.6 - Hypokalemia Status: Acute (8) Hypermagnesemia ICD Code: E83.41 - Hypermagnesemia (9) Acute kidney injury ICD Code: N17.9 - Acute kidney failure, unspecified Status: Acute (10) Leukocytosis ICD Code: D72.829 - Elevated white blood cell count, unspecified Status: Acute (11) Hyponatremia ICD Code: E87.1 - Hypo-osmolality and hyponatremia Status: Acute (12) Hypertension ICD Code: I10 - Essential (primary) hypertension (13) Pyrexia ICD Code: R50.9 - Fever, unspecified Status: Acute (14) Depression ICD Code: F32.9 - Major depressive disorder, single episode, unspecified (15) Ketoacidosis due to secondary diabetes ICD Code: E13.10 - Other specified diabetes mellitus with ketoacidosis without coma Status: Acute (16) BMI 37.0-37.9, adult ICD Code: Z68.37 - Body mass index (BMI) 37.0-37.9, adult Status: Acute Assessment and Plan 42-year-old man with: Endocarditis, sepsis, fevers Patient has multiple embolic lesions, SHASHI shows aortic valve vegetation 0.7 x 0.8 cm Infectious disease recommends staying with Rocephin and vancomycin for now, patient will need antibiotics until possible November 29, 2017. Appreciate infectious disease consult Appreciate cardiology workup Hypertension Continue Norvasc, Coreg,and hydralazine. Anxiety Continue Xanax Acute hypoxic and hypercarbic respiratory failure Bilateral pulmonary infiltrate Extubated 10/24/2017, doing well on nasal cannula oxygen Pulmonology consulted for abnormalities on imaging Status post bronchoscopy 11/07/17 pending cytology and culture report Follow-up CHEST X-RAY November 07, 2017 showed significant improvement of aeration in the lungs Upper GI bleed Gastroenterology signed off Continue pantoprazole Right lower extremity pain Nonocclusive thrombus and currently on 40 subcu of Lovenox daily, discharge home on Eliquis when ready to leave the hospital Doppler + DVT Acute hyperglycemic state Continue sliding-scale insulin with Accu-Cheks Continue Levemir 5 U q12h, hemoglobin A1c 13. Diabetic diet Tinea cruris Continue nystatin Insomnia start melatonin hS Neuropathy. Start gabapentin. DVT prophylaxis Lovenox DC plan: patient with endocarditis with spikes of fevers, needs IV abx. ID consulted patient will need antibiotics until possible November 29, 2017. DC when improved and cleared by consultants. Problem Qualifiers (1) Acute respiratory failure: Qualified Codes: J96.01 - Acute respiratory failure with hypoxia; J96.02 - Acute respiratory failure with hypercapnia (2) Pyrexia: Qualified Codes: R50.9 - Fever, unspecified (3) Depression: Qualified Codes: F32.9 - Major depressive disorder, single episode, unspecified Shante Luek MD Nov 22, 2017 14:18
--- NOTE | 2017-11-22 19:22 | HHI.PR ---
Subjective Remarks 42 YOAA male with Bipolar disorder, Lung infilt, fever Denies sob no CP Breathing better Objective Vital Signs Vital Signs Date Time Temp Pulse Resp B/P (MAP) Pulse Ox O2 Delivery O2 Flow Rate FiO2 11/22/17 16:00 98.6 101 16 119/68 (85) 96 11/22/17 16:00 100 11/22/17 12:00 96 11/22/17 12:00 98.9 95 16 125/66 (85) 97 11/22/17 11:32 Room Air 11/22/17 10:52 98 21 11/22/17 10:25 Room Air 11/22/17 08:00 98.7 90 16 134/72 (92) 95 11/22/17 08:00 93 11/22/17 04:00 98.8 93 18 144/86 (105) 97 11/22/17 03:44 85 11/22/17 00:00 Room Air 11/22/17 00:00 99.6 95 18 135/74 (94) 99 11/21/17 21:41 99 11/21/17 20:00 98.1 91 18 133/79 (97) 99 11/21/17 20:00 Room Air 11/21/17 19:45 88 I/O 11/21/17 11/21/17 11/21/17 11/22/17 11/22/17 11/22/17 07:00 15:00 23:00 07:00 15:00 23:00 Intake Total 1717.5 ml 720 ml 757.5 ml 600 ml Output Total 950 ml 1600 ml Balance 767.5 ml 720 ml -842.5 ml 600 ml Intake Oral 1200 ml 720 ml 240 ml IV Total 517.5 ml 517.5 ml 600 ml Output Urine Total 950 ml 1600 ml # Voids 1 3 # Bowel Movements 1 1 0 Result Diagram: 11/20/1762411/20/17624 Objective Remarks GENERAL: WBWN AA male, NAD SKIN: Warm and dry. HEAD: Normocephalic. EYES: No scleral icterus. No injection or drainage. NECK: Supple, trachea midline. No JVD or lymphadenopathy. CARDIOVASCULAR: Regular rate and rhythm without murmurs, gallops, or rubs. RESPIRATORY: Breath sounds equal bilaterally. No accessory muscle use. GASTROINTESTINAL: Abdomen soft, non-tender, nondistended. MUSCULOSKELETAL: No cyanosis, or edema. BACK: Nontender without obvious deformity. No CVA tenderness. A/P Assessment and Plan IMPRESSION: 1. Bilateral lung infiltrate with ongoing fever. He has been treated with antibiotic. Cultures have been negative. Possibility of inflammatory process of the lung or alveolitis. 2. Diabetes mellitus. 3. Renal insufficiency has improved. 4. Benign prostatic hypertrophy. 5. Bipolar disorder. 6. Organising Pn, eiosinophilic Pn PLAN: Cont Abx per ID, Rocephin and Vanco until 11/29 DW Pt DC prednisone Stable from Pulm standpoint Han Gonsalves MD Nov 22, 2017 19:22
[2017-11-22] MEDS: VANCOMYCIN INJ 2,000 MG in SODIUM CHLORID 0.9% 500 ML INJ 500 ML IV SCH (22:16)
[2017-11-23] VITALS (10 sets, daily range): BP systolic 114–139; BP diastolic 62–87; PULSE 76–97; RESP 17–20; TEMP 98.3–100.3; O2SAT 96–99
[2017-11-23] MEDS: MELATONIN 5 MG TAB PO PRN (02:29)
[2017-11-23] MEDS: CHLORHEXIDINE GLUCONATE 2 % 1 PACK (2 CLOTHS) TOP SCH (04:00)
[2017-11-23] MEDS: ARTIFICIAL TEARS OPTH SOLN 15 ML BTL EACH EYE SCH ×3 (06:00→22:04)
[2017-11-23] MEDS: hydrALAZINE HCL 50 MG TAB PO SCH ×3 (06:20→22:01)
[2017-11-23] MEDS: SODIUM CHLORIDE 0.9% FLUSH 10 ML FLUSH IV FLUSH SCH ×3 (07:30→22:02)
[2017-11-23] MEDS: CHLORHEXIDINE 0.12% (ORAL KIT) 15 ML CUP MT SCH ×2 (08:00→20:00)
[2017-11-23] MEDS: INSULIN ASPART SUPPLEMENTAL SCALE SQ SCH ×4 (08:00→21:00)
[2017-11-23 08:25] LABS: CREATININE 0.72 MG/DL (0.60-1.30)
--- NOTE | 2017-11-23 08:55 | HHI.PR ---
Subjective Remarks No events overnight. No fever or chills. No chest pain or shortness of breath. Noticed with some beats of V. tach in the afternoon however patient is not symptomatic. Will check electrolytes mag. Objective Vitals Vital Signs Date Time Temp Pulse Resp B/P (MAP) Pulse Ox O2 Delivery O2 Flow Rate FiO2 11/23/17 08:00 98.8 76 18 139/81 (100) 98 11/23/17 04:20 88 11/23/17 04:00 98.3 88 17 135/84 (101) 97 11/23/17 04:00 Room Air 11/23/17 00:00 Room Air 11/23/17 00:00 100.3 94 18 137/87 (104) 99 11/22/17 23:42 91 11/22/17 20:00 98.9 91 18 143/92 (109) 98 11/22/17 20:00 Room Air 11/22/17 19:59 21 11/22/17 19:43 90 11/22/17 16:00 98.6 101 16 119/68 (85) 96 11/22/17 16:00 100 11/22/17 12:00 96 11/22/17 12:00 98.9 95 16 125/66 (85) 97 11/22/17 11:32 Room Air 11/22/17 10:52 98 21 11/22/17 10:25 Room Air I/O 11/22/17 11/22/17 11/22/17 11/23/17 11/23/17 11/23/17 07:00 15:00 23:00 07:00 15:00 23:00 Intake Total 757.5 ml 600 ml 1870 ml Output Total 1600 ml 2275 ml Balance -842.5 ml 600 ml -405 ml Intake Oral 240 ml 1320 ml IV Total 517.5 ml 600 ml 550 ml Output Urine Total 1600 ml 2275 ml # Bowel Movements 0 0 Result Diagram: 11/20/17 0625 11/23/17 0705 Imaging Last Impressions Chest X-Ray 11/15/17 0000 Signed Impressions: CONCLUSION: 1. Improved aeration of the lungs compared to the previous examination with mi ld scattered infiltrates still noted. Lower Extremity Ultrasound 11/09/17 0000 Signed Impressions: CONCLUSION: 1. There is nonocclusive thrombus within the right common femoral vein. 2. The remaining veins of the right lower extremity are patent. Abdomen MRI 11/03/17 Signed Impressions: CONCLUSION: 1. Nonspecific heterogeneous signal and enhancement pattern of the liver as de scribed above and not convincingly changed from the prior CT. This is not parti cularly masslike or with organized fluid. A transient phenomenon related to hep atomegaly and/or hepatocellular disease is thought most likely. Hepatic abscess es are considered unlikely. 2. Small spleen and it also has diffusely heterogeneous signal and enhancement . Acute or subacute superimposed on chronic splenic infarcts are considered mos t likely. No significant change from the CT. In addition, no particularly mass like area and also no evidence of organized fluid so splenic abscesses are cons idered less likely. Abdomen/Pelvis CT 10/27/17 Signed Impressions: CONCLUSION: 1. No evidence of retroperitoneal hemorrhage. 2. Bibasilar subsegmental airspace disease and small bilateral effusions. 3. Patchy areas of hypodensity throughout the liver and spleen of uncertain et iology. Considering patient's history a septic vascular embolic process should be considered. 4. Minimal air in the urinary bladder. 5. Developing anasarca. Chest CT 10/25/17 Addendum Impressions: CONCLUSION: 1. Multiple bilateral scattered interstitial and airspace infiltrates througho ut both lung yuen suggestive of some type of inflammatory process. 2. Abnormal appearance of the liver. Recommend CT scan of the abdomen with IV contrast for further evaluation. Brain MRI 10/25/17 Signed Impressions: CONCLUSION: 1. Unremarkable MRI examination of the brain. Specifically, no cerebral edema or diffusion abnormality to suggest encephalitis. Head CT 10/24/17 Signed Impressions: CONCLUSION: 1. No acute intracranial abnormality. Gall Bladder Ultrasound 10/23/17 Signed Impressions: CONCLUSION: 1. There is increased echogenicity of the liver suggestive of fatty infiltrati on and/or hepatocellular disease. 2. No evidence of gallstones or biliary tract obstruction. Renal Ultrasound 10/19/17 Signed Impressions: Service Date/Time: Thursday, October 19, 2017 09:46 - CONCLUSION: Normal examination. Alexx Baig MD Objective Remarks GENERAL: 42 yo M appears in NAD CARDIOVASCULAR: Regular rate and rhythm without murmurs, gallops, or rubs. RESPIRATORY: Breath sounds equal bilaterally. No accessory muscle use. GASTROINTESTINAL: Abdomen soft, non-tender, nondistended. MUSCULOSKELETAL: No cyanosis, or edema. BACK: Nontender without obvious deformity. No CVA tenderness. Date of Insertion: October 19, 2017 A/P Problem List: (1) Acute respiratory failure ICD Code: J96.00 - Acute respiratory failure, unspecified whether with hypoxia or hypercapnia (2) Acute encephalopathy ICD Code: G93.40 - Encephalopathy, unspecified Status: Acute (3) Normocytic anemia ICD Code: D64.9 - Anemia, unspecified (4) Lactic acidosis ICD Code: E87.2 - Acidosis Status: Acute (5) Hypoalbuminemia ICD Code: E88.09 - Other disorders of plasma-protein metabolism, not elsewhere classified (6) Hypophosphatemia ICD Code: E83.39 - Other disorders of phosphorus metabolism Status: Acute (7) Hypokalemia ICD Code: E87.6 - Hypokalemia Status: Acute (8) Hypermagnesemia ICD Code: E83.41 - Hypermagnesemia (9) Acute kidney injury ICD Code: N17.9 - Acute kidney failure, unspecified Status: Acute (10) Leukocytosis ICD Code: D72.829 - Elevated white blood cell count, unspecified Status: Acute (11) Hyponatremia ICD Code: E87.1 - Hypo-osmolality and hyponatremia Status: Acute (12) Hypertension ICD Code: I10 - Essential (primary) hypertension (13) Pyrexia ICD Code: R50.9 - Fever, unspecified Status: Acute (14) Depression ICD Code: F32.9 - Major depressive disorder, single episode, unspecified (15) Ketoacidosis due to secondary diabetes ICD Code: E13.10 - Other specified diabetes mellitus with ketoacidosis without coma Status: Acute (16) BMI 37.0-37.9, adult ICD Code: Z68.37 - Body mass index (BMI) 37.0-37.9, adult Status: Acute Assessment and Plan 42-year-old man with: Endocarditis, sepsis, fevers Patient has multiple embolic lesions, SHASHI shows aortic valve vegetation 0.7 x 0.8 cm Infectious disease recommends staying with Rocephin and vancomycin for now, patient will need antibiotics until possible November 29, 2017. Appreciate infectious disease consult Appreciate cardiology workup 11/23 4 beats of V. tach patient does symptomatic. Check BMP and magnesium and replace lites Hypertension Continue Norvasc, Coreg,and hydralazine. Anxiety Continue Xanax Acute hypoxic and hypercarbic respiratory failure Bilateral pulmonary infiltrate Extubated 10/24/2017, doing well on nasal cannula oxygen Pulmonology consulted for abnormalities on imaging Status post bronchoscopy 11/07/17 pending cytology and culture report Follow-up CHEST X-RAY November 07, 2017 showed significant improvement of aeration in the lungs Upper GI bleed Gastroenterology signed off Continue pantoprazole Right lower extremity pain Nonocclusive thrombus and currently on 40 subcu of Lovenox daily, discharge home on Eliquis when ready to leave the hospital Doppler + DVT Acute hyperglycemic state Continue sliding-scale insulin with Accu-Cheks Continue Levemir 5 U q12h, hemoglobin A1c 13. Diabetic diet Tinea cruris Continue nystatin Insomnia start melatonin hS Neuropathy. Start gabapentin. DVT prophylaxis Lovenox DC plan: patient with endocarditis with spikes of fevers, needs IV abx. ID consulted patient will need antibiotics until possible November 29, 2017. DC when improved and cleared by consultants. Problem Qualifiers (1) Acute respiratory failure: Qualified Codes: J96.01 - Acute respiratory failure with hypoxia; J96.02 - Acute respiratory failure with hypercapnia (2) Pyrexia: Qualified Codes: R50.9 - Fever, unspecified (3) Depression: Qualified Codes: F32.9 - Major depressive disorder, single episode, unspecified Shante Luke MD Nov 23, 2017 08:55
[2017-11-23] MEDS: CHOLESTYRAMINE 4 GM PACKET PO SCH (09:01)
[2017-11-23] MEDS: CARVEDILOL 6.25 MG TAB PO SCH ×2 (09:01→22:02)
[2017-11-23] MEDS: LACTOBACILLUS ACIDOPHILUS TAB PO SCH ×2 (09:02→21:00)
[2017-11-23] MEDS: PANTOPRAZOLE SOD 40 MG DELAYED RELEASE TAB PO SCH ×2 (09:02→22:01)
[2017-11-23] MEDS: GABAPENTIN 100 MG CAP PO SCH ×3 (09:02→17:44)
[2017-11-23] MEDS: ENOXAPARIN SODIUM 40 MG/0.4 ML SYRINGE SQ SCH (09:03)
[2017-11-23] MEDS: traMADol HCL 50 MG TAB PO PRN (09:04)
[2017-11-23] MEDS: ALPRAZolam 0.25 MG TAB PO PRN ×2 (09:04→22:01)
[2017-11-23] MEDS: INSULIN DETEMIR 100 UNITS/ML VIAL SQ SCH ×2 (09:04→21:00)
[2017-11-23] MEDS: NYSTATIN 100,000 U/GM PWD 15 GM BTL TOPICAL SCH ×2 (09:06→22:04)
[2017-11-23] MEDS: VANCOMYCIN INJ 2,000 MG in SODIUM CHLORID 0.9% 500 ML INJ 500 ML IV SCH ×2 (09:06→22:03)
[2017-11-23] MEDS: cefTRIAXone INJ 2,000 MG in SODIUM CHLORIDE 0.9% INJ 100 ML IV SCH (12:36)
--- NOTE | 2017-11-23 18:07 | HHI.PR ---
Subjective Remarks 42 YOAA male with Bipolar disorder, Lung infilt, fever Denies sob no CP Breathing better Ambulates in the hallway Objective Vital Signs Vital Signs Date Time Temp Pulse Resp B/P (MAP) Pulse Ox O2 Delivery O2 Flow Rate FiO2 11/23/17 16:48 99.4 97 20 114/62 (79) 96 11/23/17 16:00 95 11/23/17 13:12 96 21 11/23/17 12:00 89 18 114/67 (83) 96 11/23/17 12:00 88 11/23/17 10:09 Room Air 11/23/17 08:27 97 11/23/17 08:00 98.8 76 18 139/81 (100) 98 11/23/17 04:20 88 11/23/17 04:00 98.3 88 17 135/84 (101) 97 11/23/17 04:00 Room Air 11/23/17 00:00 Room Air 11/23/17 00:00 100.3 94 18 137/87 (104) 99 11/22/17 23:42 91 11/22/17 20:00 98.9 91 18 143/92 (109) 98 11/22/17 20:00 Room Air 11/22/17 19:59 21 11/22/17 19:43 90 I/O 11/22/17 11/22/17 11/22/17 11/23/17 11/23/17 11/23/17 07:00 15:00 23:00 07:00 15:00 23:00 Intake Total 757.5 ml 600 ml 1870 ml Output Total 1600 ml 2275 ml Balance -842.5 ml 600 ml -405 ml Intake Oral 240 ml 1320 ml IV Total 517.5 ml 600 ml 550 ml Output Urine Total 1600 ml 2275 ml # Bowel Movements 0 0 Result Diagram: 11/20/17 0625 11/23/17 0705 Objective Remarks GENERAL: WBWN AA male, NAD SKIN: Warm and dry. HEAD: Normocephalic. EYES: No scleral icterus. No injection or drainage. NECK: Supple, trachea midline. No JVD or lymphadenopathy. CARDIOVASCULAR: Regular rate and rhythm without murmurs, gallops, or rubs. RESPIRATORY: Breath sounds equal bilaterally. No accessory muscle use. GASTROINTESTINAL: Abdomen soft, non-tender, nondistended. MUSCULOSKELETAL: No cyanosis, or edema. BACK: Nontender without obvious deformity. No CVA tenderness. A/P Assessment and Plan IMPRESSION: 1. Bilateral lung infiltrate with ongoing fever. He has been treated with antibiotic. Cultures have been negative. Possibility of inflammatory process of the lung or alveolitis. 2. Diabetes mellitus. 3. Renal insufficiency has improved. 4. Benign prostatic hypertrophy. 5. Bipolar disorder. 6. Organising Pn, eiosinophilic Pn PLAN: Cont Abx per ID, Rocephin and Vanco until 11/29 DW Pt DC prednisone Stable from Pulm standpoint Available prn over weekend. Han Gonsalves MD Nov 23, 2017 18:07
[2017-11-23 23:48] LABS: BICARBONATE 23.8 MEQ/L (21.0-32.0); CALCIUM 8.7 MG/DL (8.5-10.1); CREATININE 0.93 MG/DL (0.60-1.30); MAGNESIUM 1.8 MG/DL (1.5-2.5)
[2017-11-24] VITALS (9 sets, daily range): BP systolic 119–127; BP diastolic 67–80; PULSE 88–99; RESP 17–20; TEMP 98.7–100.2; O2SAT 98–100
[2017-11-24] MEDS: MELATONIN 5 MG TAB PO PRN (00:53)
[2017-11-24] MEDS: hydrALAZINE HCL 50 MG TAB PO SCH ×3 (05:13→20:41)
[2017-11-24] MEDS: ACETAMINOPHEN 325 MG TAB PO PRN (05:13)
[2017-11-24] MEDS: ARTIFICIAL TEARS OPTH SOLN 15 ML BTL EACH EYE SCH ×3 (05:13→22:49)
[2017-11-24 05:46] LABS: AUTOMATED NEUTROPHIL # 11.3 TH/MM3 (1.8-7.7); BASOPHIL # 0.2 TH/MM3 (0-0.2); BASOPHIL % 1.4 % (0.0-2.0); EOSINOPHIL # 0.3 TH/MM3 (0-0.4); EOSINOPHIL % 2.1 % (0.0-4.0); HEMATOCRIT 27.4 % (39.0-51.0); HEMOGLOBIN 9.2 GM/DL (13.0-17.0); LYMPH % 15.9 % (9.0-44.0); LYMPHOCYTE # 2.5 TH/MM3 (1.0-4.8); MEAN CELL VOLUME 79.1 FL (80.0-100.0); MEAN CORPUSCULAR HEMOGLOBIN 26.5 PG (27.0-34.0); MEAN CORPUSCULAR HGB CONC 33.4 % (32.0-36.0); MEAN PLATELET VOLUME 7.8 FL (7.0-11.0); MONO % 8.5 % (0.0-8.0); MONOCYTE # 1.3 TH/MM3 (0-0.9); NEUT % 72.1 % (16.0-70.0); PLATELET COUNT 561 TH/MM3 (150-450); RED BLOOD COUNT 3.46 MIL/MM3 (4.50-5.90); RED CELL DISTRIBUTION WIDTH 16.4 % (11.6-17.2); WHITE BLOOD COUNT 15.6 TH/MM3 (4.0-11.0)
[2017-11-24 06:16] LABS: BICARBONATE 23.3 MEQ/L (21.0-32.0); CALCIUM 8.8 MG/DL (8.5-10.1); CREATININE 0.8 MG/DL (0.60-1.30); MAGNESIUM 1.9 MG/DL (1.5-2.5)
[2017-11-24] MEDS: CHLORHEXIDINE 0.12% (ORAL KIT) 15 ML CUP MT SCH ×2 (08:00→20:00)
[2017-11-24] MEDS: INSULIN ASPART SUPPLEMENTAL SCALE SQ SCH ×4 (08:00→20:11)
[2017-11-24] MEDS: SODIUM CHLORIDE 0.9% FLUSH 10 ML FLUSH IV FLUSH SCH ×3 (09:00→20:43)
[2017-11-24] MEDS: ENOXAPARIN SODIUM 40 MG/0.4 ML SYRINGE SQ SCH (09:18)
[2017-11-24] MEDS: LACTOBACILLUS ACIDOPHILUS TAB PO SCH ×2 (09:18→20:41)
[2017-11-24] MEDS: ALPRAZolam 0.25 MG TAB PO PRN ×3 (09:18→22:50)
[2017-11-24] MEDS: CHOLESTYRAMINE 4 GM PACKET PO SCH (09:19)
[2017-11-24] MEDS: GABAPENTIN 100 MG CAP PO SCH ×3 (09:19→17:00)
[2017-11-24] MEDS: CARVEDILOL 6.25 MG TAB PO SCH ×2 (09:19→20:41)
[2017-11-24] MEDS: PANTOPRAZOLE SOD 40 MG DELAYED RELEASE TAB PO SCH ×2 (09:19→20:41)
[2017-11-24] MEDS: NYSTATIN 100,000 U/GM PWD 15 GM BTL TOPICAL SCH ×2 (09:20→20:43)
[2017-11-24] MEDS: INSULIN DETEMIR 100 UNITS/ML VIAL SQ SCH ×2 (09:20→20:42)
[2017-11-24] MEDS ORDERED: PHARMACY ORDERED LAB ONE (09:45)
[2017-11-24] MEDS: VANCOMYCIN INJ 2,000 MG in SODIUM CHLORID 0.9% 500 ML INJ 500 ML IV SCH ×2 (10:49→22:50)
[2017-11-24] MEDS: cefTRIAXone INJ 2,000 MG in SODIUM CHLORIDE 0.9% INJ 100 ML IV SCH (13:19)
--- NOTE | 2017-11-24 15:51 | HHI.PR ---
Subjective Remarks Still complains of fevers and chills. T-max 100.1 today early in the morning. Denies nausea, vomiting or abdominal pain. Objective Vitals Vital Signs Date Time Temp Pulse Resp B/P (MAP) Pulse Ox O2 Delivery O2 Flow Rate FiO2 11/24/17 15:41 21 11/24/17 11:52 92 11/24/17 11:50 98.7 90 18 122/75 (91) 100 11/24/17 08:43 99.1 96 18 126/73 (90) 98 11/24/17 08:00 Room Air 11/24/17 07:49 95 11/24/17 04:00 100.1 99 18 120/68 (85) 98 11/24/17 00:00 100.0 96 18 119/67 (84) 98 11/23/17 20:00 99.6 92 18 131/74 (93) 98 11/23/17 16:48 99.4 97 20 114/62 (79) 96 11/23/17 16:00 95 I/O 11/23/17 11/23/17 11/23/17 11/24/17 11/24/17 11/24/17 06:59 14:59 22:59 06:59 14:59 22:59 Intake Total 1870 ml 720 ml 620 ml Output Total 2275 ml 950 ml Balance -405 ml -230 ml 620 ml Intake Oral 1320 ml 720 ml IV Total 550 ml 620 ml Output Urine Total 2275 ml 950 ml # Bowel Movements 0 1 Result Diagram: 11/24/17 0530 11/24/17 0530 Imaging Last Impressions Chest X-Ray 11/15/17 0000 Signed Impressions: CONCLUSION: 1. Improved aeration of the lungs compared to the previous examination with mi ld scattered infiltrates still noted. Lower Extremity Ultrasound 11/09/17 0000 Signed Impressions: CONCLUSION: 1. There is nonocclusive thrombus within the right common femoral vein. 2. The remaining veins of the right lower extremity are patent. Abdomen MRI 11/03/17 0000 Signed Impressions: CONCLUSION: 1. Nonspecific heterogeneous signal and enhancement pattern of the liver as de scribed above and not convincingly changed from the prior CT. This is not parti cularly masslike or with organized fluid. A transient phenomenon related to hep atomegaly and/or hepatocellular disease is thought most likely. Hepatic abscess es are considered unlikely. 2. Small spleen and it also has diffusely heterogeneous signal and enhancement . Acute or subacute superimposed on chronic splenic infarcts are considered mos t likely. No significant change from the CT. In addition, no particularly mass like area and also no evidence of organized fluid so splenic abscesses are cons idered less likely. Abdomen/Pelvis CT 10/27/17 Signed Impressions: CONCLUSION: 1. No evidence of retroperitoneal hemorrhage. 2. Bibasilar subsegmental airspace disease and small bilateral effusions. 3. Patchy areas of hypodensity throughout the liver and spleen of uncertain et iology. Considering patient's history a septic vascular embolic process should be considered. 4. Minimal air in the urinary bladder. 5. Developing anasarca. Chest CT 10/25/17 Addendum Impressions: CONCLUSION: 1. Multiple bilateral scattered interstitial and airspace infiltrates througho ut both lung yuen suggestive of some type of inflammatory process. 2. Abnormal appearance of the liver. Recommend CT scan of the abdomen with IV contrast for further evaluation. Brain MRI 10/25/17 Signed Impressions: CONCLUSION: 1. Unremarkable MRI examination of the brain. Specifically, no cerebral edema or diffusion abnormality to suggest encephalitis. Head CT 10/24/17 Signed Impressions: CONCLUSION: 1. No acute intracranial abnormality. Gall Bladder Ultrasound 10/23/17 Signed Impressions: CONCLUSION: 1. There is increased echogenicity of the liver suggestive of fatty infiltrati on and/or hepatocellular disease. 2. No evidence of gallstones or biliary tract obstruction. Renal Ultrasound 10/19/17 Signed Impressions: Service Date/Time: Thursday, October 19, 2017 09:46 - CONCLUSION: Normal examination. Alexx Baig MD Objective Remarks GENERAL: 42 yo M appears in NAD CARDIOVASCULAR: Regular rate and rhythm without murmurs, gallops, or rubs. RESPIRATORY: Breath sounds equal bilaterally. No accessory muscle use. GASTROINTESTINAL: Abdomen soft, non-tender, nondistended. MUSCULOSKELETAL: No cyanosis, or edema. BACK: Nontender without obvious deformity. No CVA tenderness. Date of Insertion: October 19, 2017 A/P Problem List: (1) Acute respiratory failure ICD Code: J96.00 - Acute respiratory failure, unspecified whether with hypoxia or hypercapnia (2) Acute encephalopathy ICD Code: G93.40 - Encephalopathy, unspecified Status: Acute (3) Normocytic anemia ICD Code: D64.9 - Anemia, unspecified (4) Lactic acidosis ICD Code: E87.2 - Acidosis Status: Acute (5) Hypoalbuminemia ICD Code: E88.09 - Other disorders of plasma-protein metabolism, not elsewhere classified (6) Hypophosphatemia ICD Code: E83.39 - Other disorders of phosphorus metabolism Status: Acute (7) Hypokalemia ICD Code: E87.6 - Hypokalemia Status: Acute (8) Hypermagnesemia ICD Code: E83.41 - Hypermagnesemia (9) Acute kidney injury ICD Code: N17.9 - Acute kidney failure, unspecified Status: Acute (10) Leukocytosis ICD Code: D72.829 - Elevated white blood cell count, unspecified Status: Acute (11) Hyponatremia ICD Code: E87.1 - Hypo-osmolality and hyponatremia Status: Acute (12) Hypertension ICD Code: I10 - Essential (primary) hypertension (13) Pyrexia ICD Code: R50.9 - Fever, unspecified Status: Acute (14) Depression ICD Code: F32.9 - Major depressive disorder, single episode, unspecified (15) Ketoacidosis due to secondary diabetes ICD Code: E13.10 - Other specified diabetes mellitus with ketoacidosis without coma Status: Acute (16) BMI 37.0-37.9, adult ICD Code: Z68.37 - Body mass index (BMI) 37.0-37.9, adult Status: Acute Assessment and Plan 42-year-old man with: Endocarditis, sepsis, fevers Patient has multiple embolic lesions, SHASHI shows aortic valve vegetation 0.7 x 0.8 cm Infectious disease recommends staying with Rocephin and vancomycin for now, patient will need antibiotics until possible November 29, 2017. Appreciate infectious disease consult Appreciate cardiology workup 11/23 4 beats of V. tach patient does symptomatic. Check BMP and magnesium and replace lites 11/24 no further repeated episodes of V. tach. Continue to monitor on telemetry. Hypertension Continue Norvasc, Coreg,and hydralazine. Anxiety Continue Xanax Acute hypoxic and hypercarbic respiratory failure Bilateral pulmonary infiltrate Extubated 10/24/2017, doing well on nasal cannula oxygen Pulmonology consulted for abnormalities on imaging Status post bronchoscopy 11/07/17 pending cytology and culture report Follow-up CHEST X-RAY November 07, 2017 showed significant improvement of aeration in the lungs the patient is currently on room air. Continue supplemental oxygen to keep oxygen saturation more than 92%. Upper GI bleed Gastroenterology signed off Continue pantoprazole Right lower extremity pain Nonocclusive thrombus and currently on 40 subcu of Lovenox daily, discharge home on Eliquis when ready to leave the hospital Doppler + DVT New onset diabetes mellitus. Continue sliding-scale insulin with Accu-Cheks Continue Levemir 5 U q12h, hemoglobin A1c 13. Diabetic diet 11/24 will order diabetes education since patient will need to go most likely on insulin Levemir, SSI and metformin on discharge. Tinea cruris Continue nystatin Insomnia Improved with melatonin. Continue. Neuropathy. 6 09/24 likely secondary to diabetic neuropathy. Continue gabapentin. DVT prophylaxis Lovenox Discharge Planning DC plan: patient with endocarditis with spikes of fevers, needs IV abx. ID consulted patient will need antibiotics until possible November 29, 2017. DC when improved and cleared by consultants. Problem Qualifiers (1) Acute respiratory failure: Qualified Codes: J96.01 - Acute respiratory failure with hypoxia; J96.02 - Acute respiratory failure with hypercapnia (2) Pyrexia: Qualified Codes: R50.9 - Fever, unspecified (3) Depression: Qualified Codes: F32.9 - Major depressive disorder, single episode, unspecified Rhett Augustine MD Nov 24, 2017 15:51
[2017-11-24] MEDS: traMADol HCL 50 MG TAB PO PRN (20:41)
[2017-11-25] VITALS (12 sets, daily range): BP systolic 111–124; BP diastolic 60–67; PULSE 85–98; RESP 18–20; TEMP 98.1–99.7; O2SAT 96–99
[2017-11-25] MEDS: MELATONIN 5 MG TAB PO PRN (01:23)
[2017-11-25] MEDS: ARTIFICIAL TEARS OPTH SOLN 15 ML BTL EACH EYE SCH ×3 (06:09→22:27)
[2017-11-25] MEDS: hydrALAZINE HCL 50 MG TAB PO SCH ×3 (06:09→21:17)
[2017-11-25] MEDS: INSULIN ASPART SUPPLEMENTAL SCALE SQ SCH ×4 (08:00→21:00)
[2017-11-25] MEDS: CHLORHEXIDINE 0.12% (ORAL KIT) 15 ML CUP MT SCH ×2 (08:00→20:00)
--- NOTE | 2017-11-25 08:49 | HHI.PR ---
Subjective Remarks Had fever 100.4 last night. Afebrile since then. No chest pain or shortness of breath. No other complaints. Objective Vitals Vital Signs Date Time Temp Pulse Resp B/P (MAP) Pulse Ox O2 Delivery O2 Flow Rate FiO2 11/25/17 04:00 98.8 90 18 124/67 (86) 98 11/25/17 03:57 91 11/25/17 00:00 98.8 98 18 117/66 (83) 99 11/25/17 00:00 Room Air 11/25/17 00:00 95 11/24/17 22:06 21 11/24/17 20:00 88 11/24/17 20:00 100.2 91 20 124/67 (86) 98 11/24/17 19:30 Room Air 11/24/17 16:48 99.4 93 17 127/80 (96) 99 11/24/17 15:41 21 11/24/17 15:31 88 11/24/17 11:52 92 11/24/17 11:50 98.7 90 18 122/75 (91) 100 I/O 11/24/17 11/24/17 11/24/17 11/25/17 11/25/17 11/25/17 07:00 15:00 23:00 07:00 15:00 23:00 Intake Total 720 ml 620 ml 480 ml 1200 ml Output Total 950 ml 2600 ml 1475 ml Balance -230 ml 620 ml -2120 ml -275 ml Intake Oral 720 ml 480 ml 1200 ml IV Total 620 ml Output Urine Total 950 ml 2600 ml 1475 ml # Bowel Movements 1 2 1 Result Diagram: 11/24/1730 11/24/17 0530 Objective Remarks GENERAL: 42 yo M appears in NAD CARDIOVASCULAR: Regular rate and rhythm without murmurs, gallops, or rubs. RESPIRATORY: Breath sounds equal bilaterally. No accessory muscle use. GASTROINTESTINAL: Abdomen soft, non-tender, nondistended. MUSCULOSKELETAL: No cyanosis, or edema. BACK: Nontender without obvious deformity. No CVA tenderness. Date of Insertion: October 19, 2017 A/P Problem List: (1) Acute respiratory failure ICD Code: J96.00 - Acute respiratory failure, unspecified whether with hypoxia or hypercapnia (2) Acute encephalopathy ICD Code: G93.40 - Encephalopathy, unspecified Status: Acute (3) Normocytic anemia ICD Code: D64.9 - Anemia, unspecified (4) Lactic acidosis ICD Code: E87.2 - Acidosis Status: Acute (5) Hypoalbuminemia ICD Code: E88.09 - Other disorders of plasma-protein metabolism, not elsewhere classified (6) Hypophosphatemia ICD Code: E83.39 - Other disorders of phosphorus metabolism Status: Acute (7) Hypokalemia ICD Code: E87.6 - Hypokalemia Status: Acute (8) Hypermagnesemia ICD Code: E83.41 - Hypermagnesemia (9) Acute kidney injury ICD Code: N17.9 - Acute kidney failure, unspecified Status: Acute (10) Leukocytosis ICD Code: D72.829 - Elevated white blood cell count, unspecified Status: Acute (11) Hyponatremia ICD Code: E87.1 - Hypo-osmolality and hyponatremia Status: Acute (12) Hypertension ICD Code: I10 - Essential (primary) hypertension (13) Pyrexia ICD Code: R50.9 - Fever, unspecified Status: Acute (14) Depression ICD Code: F32.9 - Major depressive disorder, single episode, unspecified (15) Ketoacidosis due to secondary diabetes ICD Code: E13.10 - Other specified diabetes mellitus with ketoacidosis without coma Status: Acute (16) BMI 37.0-37.9, adult ICD Code: Z68.37 - Body mass index (BMI) 37.0-37.9, adult Status: Acute Assessment and Plan 42-year-old man with: Endocarditis, sepsis, fevers Patient has multiple embolic lesions, SHASHI shows aortic valve vegetation 0.7 x 0.8 cm Infectious disease recommends staying with Rocephin and vancomycin for now, patient will need antibiotics until possible November 29, 2017. Appreciate infectious disease consult Appreciate cardiology workup 11/23 4 beats of V. tach patient does symptomatic. Check BMP and magnesium and replace lites Hypertension Continue Norvasc, Coreg,and hydralazine. Anxiety Continue Xanax Acute hypoxic and hypercarbic respiratory failure Bilateral pulmonary infiltrate Extubated 10/24/2017, doing well on nasal cannula oxygen Pulmonology consulted for abnormalities on imaging Status post bronchoscopy 11/07/17 pending cytology and culture report Follow-up CHEST X-RAY November 07, 2017 showed significant improvement of aeration in the lungs Upper GI bleed Gastroenterology signed off Continue pantoprazole Right lower extremity pain Nonocclusive thrombus and currently on 40 subcu of Lovenox daily, discharge home on Eliquis when ready to leave the hospital Doppler + DVT Acute hyperglycemic state Continue sliding-scale insulin with Accu-Cheks Continue Levemir 5 U q12h, hemoglobin A1c 13. Diabetic diet Tinea cruris Continue nystatin Insomnia start melatonin hS Neuropathy. Start gabapentin. DVT prophylaxis Lovenox DC plan: patient with endocarditis with spikes of fevers, needs IV abx. ID consulted patient will need antibiotics until possible November 29, 2017. DC when improved and cleared by consultants. Problem Qualifiers (1) Acute respiratory failure: Qualified Codes: J96.01 - Acute respiratory failure with hypoxia; J96.02 - Acute respiratory failure with hypercapnia (2) Pyrexia: Qualified Codes: R50.9 - Fever, unspecified (3) Depression: Qualified Codes: F32.9 - Major depressive disorder, single episode, unspecified Shante Luke MD Nov 25, 2017 08:49
[2017-11-25] MEDS: SODIUM CHLORIDE 0.9% FLUSH 10 ML FLUSH IV FLUSH SCH ×3 (09:00→21:22)
[2017-11-25] MEDS: LACTOBACILLUS ACIDOPHILUS TAB PO SCH ×2 (09:32→21:17)
[2017-11-25] MEDS: PANTOPRAZOLE SOD 40 MG DELAYED RELEASE TAB PO SCH ×2 (09:32→21:17)
[2017-11-25] MEDS: CHOLESTYRAMINE 4 GM PACKET PO SCH (09:32)
[2017-11-25] MEDS: CARVEDILOL 6.25 MG TAB PO SCH ×2 (09:32→21:18)
[2017-11-25] MEDS: ENOXAPARIN SODIUM 40 MG/0.4 ML SYRINGE SQ SCH (09:33)
[2017-11-25] MEDS: GABAPENTIN 100 MG CAP PO SCH ×3 (09:33→17:26)
[2017-11-25] MEDS: INSULIN DETEMIR 100 UNITS/ML VIAL SQ SCH ×2 (09:34→21:17)
[2017-11-25] MEDS: NYSTATIN 100,000 U/GM PWD 15 GM BTL TOPICAL SCH ×2 (09:36→22:27)
[2017-11-25] MEDS: VANCOMYCIN INJ 2,000 MG in SODIUM CHLORID 0.9% 500 ML INJ 500 ML IV SCH ×2 (09:51→22:26)
[2017-11-25] MEDS: ALPRAZolam 0.25 MG TAB PO PRN ×2 (09:51→17:27)
[2017-11-25] MEDS: traMADol HCL 50 MG TAB PO PRN ×2 (12:32→21:19)
[2017-11-25] MEDS: cefTRIAXone INJ 2,000 MG in SODIUM CHLORIDE 0.9% INJ 100 ML IV SCH (12:32)
[2017-11-26] VITALS (8 sets, daily range): BP systolic 110–135; BP diastolic 59–66; PULSE 82–111; RESP 16–20; TEMP 97.9–100.1; O2SAT 91–99
[2017-11-26] MEDS: MELATONIN 5 MG TAB PO PRN ×2 (01:00→21:43)
[2017-11-26] MEDS: ALPRAZolam 0.25 MG TAB PO PRN ×3 (01:00→17:27)
[2017-11-26] MEDS: hydrALAZINE HCL 50 MG TAB PO SCH ×3 (05:47→21:42)
[2017-11-26] MEDS: traMADol HCL 50 MG TAB PO PRN ×2 (05:48→17:30)
[2017-11-26] MEDS: ARTIFICIAL TEARS OPTH SOLN 15 ML BTL EACH EYE SCH ×3 (05:49→21:47)
[2017-11-26 06:36] LABS: CREATININE 0.81 MG/DL (0.60-1.30)
[2017-11-26] MEDS: INSULIN ASPART SUPPLEMENTAL SCALE SQ SCH ×4 (08:00→21:00)
[2017-11-26] MEDS: CHLORHEXIDINE 0.12% (ORAL KIT) 15 ML CUP MT SCH ×2 (08:00→20:00)
[2017-11-26] MEDS: LACTOBACILLUS ACIDOPHILUS TAB PO SCH ×2 (08:27→21:42)
[2017-11-26] MEDS: CARVEDILOL 6.25 MG TAB PO SCH ×2 (08:27→21:43)
[2017-11-26] MEDS: CHOLESTYRAMINE 4 GM PACKET PO SCH (08:27)
[2017-11-26] MEDS: PANTOPRAZOLE SOD 40 MG DELAYED RELEASE TAB PO SCH ×2 (08:27→21:48)
[2017-11-26] MEDS: ENOXAPARIN SODIUM 40 MG/0.4 ML SYRINGE SQ SCH (08:27)
[2017-11-26] MEDS: GABAPENTIN 100 MG CAP PO SCH ×3 (08:27→17:27)
[2017-11-26] MEDS: SODIUM CHLORIDE 0.9% FLUSH 10 ML FLUSH IV FLUSH SCH ×3 (08:28→21:45)
[2017-11-26] MEDS: NYSTATIN 100,000 U/GM PWD 15 GM BTL TOPICAL SCH ×2 (08:29→21:47)
[2017-11-26] MEDS: INSULIN DETEMIR 100 UNITS/ML VIAL SQ SCH ×2 (08:38→21:46)
[2017-11-26] MEDS: VANCOMYCIN INJ 2,000 MG in SODIUM CHLORID 0.9% 500 ML INJ 500 ML IV SCH ×2 (10:12→21:42)
[2017-11-26] MEDS: cefTRIAXone INJ 2,000 MG in SODIUM CHLORIDE 0.9% INJ 100 ML IV SCH (12:47)
--- NOTE | 2017-11-26 15:23 | HHI.PR ---
Subjective Remarks Follow-up endocarditis. States he is doing okay ambulating and stooling. Objective Vitals Vital Signs Date Time Temp Pulse Resp B/P (MAP) Pulse Ox O2 Delivery O2 Flow Rate FiO2 11/26/17 12:00 82 11/26/17 10:55 97 21 11/26/17 08:00 88 11/26/17 08:00 98.8 99 20 121/66 (84) 97 11/26/17 06:48 16 11/26/17 04:00 99.0 93 18 110/59 (76) 98 11/26/17 04:00 111 11/26/17 00:00 82 11/26/17 00:00 100.1 92 18 123/63 (83) 96 11/25/17 20:29 98 21 11/25/17 20:00 Room Air 11/25/17 20:00 88 11/25/17 20:00 99.3 88 20 123/67 (85) 98 11/25/17 16:23 99.7 92 18 115/60 (78) 97 11/25/17 15:55 87 I/O 11/25/17 11/25/17 11/25/17 11/26/17 11/26/17 11/26/17 07:00 15:00 23:00 07:00 15:00 23:00 Intake Total 1200 ml 620 ml 480 ml 480 ml Output Total 1475 ml 2400 ml 1500 ml Balance -275 ml 620 ml -1920 ml -1020 ml Intake Oral 1200 ml 480 ml 480 ml IV Total 620 ml Output Urine Total 1475 ml 2400 ml 1500 ml # Bowel Movements 1 2 Result Diagram: 11/24/17 0530 11/26/17 0550 Imaging Last Impressions Chest X-Ray 11/15/17 0000 Signed Impressions: CONCLUSION: 1. Improved aeration of the lungs compared to the previous examination with mi ld scattered infiltrates still noted. Lower Extremity Ultrasound 11/09/17 0000 Signed Impressions: CONCLUSION: 1. There is nonocclusive thrombus within the right common femoral vein. 2. The remaining veins of the right lower extremity are patent. Abdomen MRI 11/03/17 0000 Signed Impressions: CONCLUSION: 1. Nonspecific heterogeneous signal and enhancement pattern of the liver as de scribed above and not convincingly changed from the prior CT. This is not parti cularly masslike or with organized fluid. A transient phenomenon related to hep atomegaly and/or hepatocellular disease is thought most likely. Hepatic abscess es are considered unlikely. 2. Small spleen and it also has diffusely heterogeneous signal and enhancement . Acute or subacute superimposed on chronic splenic infarcts are considered mos t likely. No significant change from the CT. In addition, no particularly mass like area and also no evidence of organized fluid so splenic abscesses are cons idered less likely. Abdomen/Pelvis CT 10/27/17 Signed Impressions: CONCLUSION: 1. No evidence of retroperitoneal hemorrhage. 2. Bibasilar subsegmental airspace disease and small bilateral effusions. 3. Patchy areas of hypodensity throughout the liver and spleen of uncertain et iology. Considering patient's history a septic vascular embolic process should be considered. 4. Minimal air in the urinary bladder. 5. Developing anasarca. Chest CT 10/25/17 Addendum Impressions: CONCLUSION: 1. Multiple bilateral scattered interstitial and airspace infiltrates througho ut both lung yuen suggestive of some type of inflammatory process. 2. Abnormal appearance of the liver. Recommend CT scan of the abdomen with IV contrast for further evaluation. Brain MRI 10/25/17 Signed Impressions: CONCLUSION: 1. Unremarkable MRI examination of the brain. Specifically, no cerebral edema or diffusion abnormality to suggest encephalitis. Head CT 10/24/17 Signed Impressions: CONCLUSION: 1. No acute intracranial abnormality. Gall Bladder Ultrasound 10/23/17 Signed Impressions: CONCLUSION: 1. There is increased echogenicity of the liver suggestive of fatty infiltrati on and/or hepatocellular disease. 2. No evidence of gallstones or biliary tract obstruction. Renal Ultrasound 10/19/17 Signed Impressions: Service Date/Time: Thursday, October 19, 2017 09:46 - CONCLUSION: Normal examination. Alexx Baig MD Objective Remarks GENERAL: 42 yo M appears in NAD CARDIOVASCULAR: Regular rate and rhythm without murmurs, gallops, or rubs. RESPIRATORY: Breath sounds equal bilaterally. No accessory muscle use. GASTROINTESTINAL: Abdomen soft, non-tender, nondistended. MUSCULOSKELETAL: No cyanosis, or edema. Decreasing necrotic area on the tips of third and fourth right fingers BACK: Nontender without obvious deformity. No CVA tenderness. Procedures Bronchoscopy, LP, right radial arterial cannulation and SHASHI Date of Insertion: October 19, 2017 A/P Problem List: (1) Acute respiratory failure ICD Code: J96.00 - Acute respiratory failure, unspecified whether with hypoxia or hypercapnia (2) Acute encephalopathy ICD Code: G93.40 - Encephalopathy, unspecified Status: Acute (3) Normocytic anemia ICD Code: D64.9 - Anemia, unspecified (4) Lactic acidosis ICD Code: E87.2 - Acidosis Status: Acute (5) Hypoalbuminemia ICD Code: E88.09 - Other disorders of plasma-protein metabolism, not elsewhere classified (6) Hypophosphatemia ICD Code: E83.39 - Other disorders of phosphorus metabolism Status: Acute (7) Hypokalemia ICD Code: E87.6 - Hypokalemia Status: Acute (8) Hypermagnesemia ICD Code: E83.41 - Hypermagnesemia (9) Acute kidney injury ICD Code: N17.9 - Acute kidney failure, unspecified Status: Acute (10) Leukocytosis ICD Code: D72.829 - Elevated white blood cell count, unspecified Status: Acute (11) Hyponatremia ICD Code: E87.1 - Hypo-osmolality and hyponatremia Status: Acute (12) Hypertension ICD Code: I10 - Essential (primary) hypertension (13) Pyrexia ICD Code: R50.9 - Fever, unspecified Status: Acute (14) Depression ICD Code: F32.9 - Major depressive disorder, single episode, unspecified (15) Ketoacidosis due to secondary diabetes ICD Code: E13.10 - Other specified diabetes mellitus with ketoacidosis without coma Status: Acute (16) BMI 37.0-37.9, adult ICD Code: Z68.37 - Body mass index (BMI) 37.0-37.9, adult Status: Acute Assessment and Plan 42-year-old man with: Endocarditis, sepsis, fevers NSVT secondary to electrolyte abnormalities Patient has multiple embolic lesions, SHASHI shows aortic valve vegetation 0.7 x 0.8 cm Infectious disease recommends staying with Rocephin and vancomycin for now, patient will need antibiotics until November 29, 2017. Appreciate infectious disease consult Appreciate cardiology workup Hypertension Continue Norvasc, Coreg,and hydralazine. Anxiety Continue Xanax Acute hypoxic and hypercarbic respiratory failure. Resolved Bilateral pulmonary infiltrate. Improved Extubated 10/24/2017, doing well on room air Pulmonology consulted for abnormalities on imaging Upper GI bleed Gastroenterology signed off Continue pantoprazole Right lower extremity pain Nonocclusive thrombus and currently on 40 subcu of Lovenox daily, discharge home on Eliquis when ready to leave the hospital Doppler + DVT Diabetes mellitus Continue sliding-scale insulin with Accu-Cheks Continue Levemir , hemoglobin A1c 13. Diabetic diet Tinea cruris Continue nystatin Neuropathy. Continue gabapentin. DVT prophylaxis Lovenox Discharge Planning Discharge to SNF when arranged Problem Qualifiers (1) Acute respiratory failure: Qualified Codes: J96.01 - Acute respiratory failure with hypoxia; J96.02 - Acute respiratory failure with hypercapnia (2) Pyrexia: Qualified Codes: R50.9 - Fever, unspecified (3) Depression: Qualified Codes: F32.9 - Major depressive disorder, single episode, unspecified Martir Soto MD Nov 26, 2017 15:23
--- NOTE | 2017-11-26 20:04 | HHI.PR ---
Subjective Remarks 42 YOAA male with Bipolar disorder, Lung infilt, fever Denies sob no CP Breathing better Ambulates in the hallway Objective Vital Signs Vital Signs Date Time Temp Pulse Resp B/P (MAP) Pulse Ox O2 Delivery O2 Flow Rate FiO2 11/26/17 18:44 18 11/26/17 12:00 98.4 94 20 123/64 (83) 99 11/26/17 12:00 82 11/26/17 10:55 97 21 11/26/17 08:00 88 11/26/17 08:00 98.8 99 20 121/66 (84) 97 11/26/17 04:00 99.0 93 18 110/59 (76) 98 11/26/17 04:00 111 11/26/17 00:00 82 11/26/17 00:00 100.1 92 18 123/63 (83) 96 11/25/17 20:29 98 21 I/O 11/25/17 11/25/17 11/25/17 11/26/17 11/26/17 11/26/17 07:00 15:00 23:00 07:00 15:00 23:00 Intake Total 1200 ml 620 ml 480 ml 480 ml Output Total 1475 ml 2400 ml 1500 ml Balance -275 ml 620 ml -1920 ml -1020 ml Intake Oral 1200 ml 480 ml 480 ml IV Total 620 ml Output Urine Total 1475 ml 2400 ml 1500 ml # Bowel Movements 1 2 Result Diagram: 11/24/17 0530 11/26/17 0550 Objective Remarks GENERAL: WBWN AA male, NAD SKIN: Warm and dry. HEAD: Normocephalic. EYES: No scleral icterus. No injection or drainage. NECK: Supple, trachea midline. No JVD or lymphadenopathy. CARDIOVASCULAR: Regular rate and rhythm without murmurs, gallops, or rubs. RESPIRATORY: Breath sounds equal bilaterally. No accessory muscle use. GASTROINTESTINAL: Abdomen soft, non-tender, nondistended. MUSCULOSKELETAL: No cyanosis, or edema. BACK: Nontender without obvious deformity. No CVA tenderness. A/P Assessment and Plan IMPRESSION: 1. Bilateral lung infiltrate with ongoing fever. He has been treated with antibiotic. Cultures have been negative. Possibility of inflammatory process of the lung or alveolitis. 2. Diabetes mellitus. 3. Renal insufficiency has improved. 4. Benign prostatic hypertrophy. 5. Bipolar disorder. 6. Organising Pn, eiosinophilic Pn PLAN: Cont Abx per ID, Rocephin and Vanco until 11/29 DW Pt Stable from Pulm standpoint Han Gonsalves MD Nov 26, 2017 20:04
[2017-11-27] VITALS (11 sets, daily range): BP systolic 119–129; BP diastolic 59–72; PULSE 91–106; RESP 16–19; TEMP 98.5–100.1; O2SAT 96–99
[2017-11-27] MEDS: ALPRAZolam 0.25 MG TAB PO PRN ×2 (00:30→21:29)
[2017-11-27] MEDS: traMADol HCL 50 MG TAB PO PRN (00:34)
[2017-11-27] MEDS: hydrALAZINE HCL 50 MG TAB PO SCH ×3 (05:22→21:14)
[2017-11-27] MEDS: ARTIFICIAL TEARS OPTH SOLN 15 ML BTL EACH EYE SCH ×3 (05:23→21:30)
[2017-11-27] MEDS: INSULIN ASPART SUPPLEMENTAL SCALE SQ SCH ×4 (08:00→21:31)
[2017-11-27] MEDS: LACTOBACILLUS ACIDOPHILUS TAB PO SCH ×2 (09:13→21:00)
[2017-11-27] MEDS: CHOLESTYRAMINE 4 GM PACKET PO SCH (09:13)
[2017-11-27] MEDS: PANTOPRAZOLE SOD 40 MG DELAYED RELEASE TAB PO SCH ×2 (09:13→21:15)
[2017-11-27] MEDS: GABAPENTIN 100 MG CAP PO SCH ×3 (09:13→21:29)
[2017-11-27] MEDS: CARVEDILOL 6.25 MG TAB PO SCH ×2 (09:13→21:15)
[2017-11-27] MEDS: ENOXAPARIN SODIUM 40 MG/0.4 ML SYRINGE SQ SCH (09:15)
[2017-11-27] MEDS: SODIUM CHLORIDE 0.9% FLUSH 10 ML FLUSH IV FLUSH SCH ×3 (09:16→21:16)
[2017-11-27] MEDS: NYSTATIN 100,000 U/GM PWD 15 GM BTL TOPICAL SCH ×2 (09:27→21:30)
[2017-11-27] MEDS: INSULIN DETEMIR 100 UNITS/ML VIAL SQ SCH ×2 (09:27→21:00)
[2017-11-27] MEDS: CHLORHEXIDINE 0.12% (ORAL KIT) 15 ML CUP MT SCH ×2 (09:28→20:00)
[2017-11-27] MEDS: VANCOMYCIN INJ 2,000 MG in SODIUM CHLORID 0.9% 500 ML INJ 500 ML IV SCH ×2 (10:06→21:29)
--- NOTE | 2017-11-27 10:46 | HHI.PR ---
Subjective Remarks 42 YOAA male with Bipolar disorder, Lung infilt, fever Denies sob no CP Breathing better Ambulates in the hallway No Fever Objective Vital Signs Vital Signs Date Time Temp Pulse Resp B/P (MAP) Pulse Ox O2 Delivery O2 Flow Rate FiO2 11/27/17 08:00 Room Air 11/27/17 08:00 97 11/27/17 08:00 99.1 102 18 127/69 (88) 99 11/27/17 05:20 99.7 106 16 119/66 (83) 99 11/27/17 03:57 100 11/27/17 00:01 93 11/27/17 00:00 100.1 97 16 129/72 (91) 96 11/26/17 21:46 100.1 98 16 122/61 (81) 91 11/26/17 21:00 Room Air 11/26/17 20:34 92 11/26/17 18:44 18 11/26/17 16:00 97.9 96 20 135/66 (89) 97 11/26/17 12:00 98.4 94 20 123/64 (83) 99 11/26/17 12:00 82 11/26/17 10:55 97 21 I/O 11/26/17 11/26/17 11/26/17 11/27/17 11/27/17 11/27/17 07:00 15:00 23:00 07:00 15:00 23:00 Intake Total 480 ml 1440 ml 720 ml Output Total 1500 ml 1000 ml 1540 ml Balance -1020 ml 440 ml -820 ml Intake Oral 480 ml 1440 ml 720 ml Output Urine Total 1500 ml 1000 ml 1540 ml # Bowel Movements 1 0 Result Diagram: 11/24/17 0530 11/26/17 0550 Objective Remarks GENERAL: WBWN AA male, NAD SKIN: Warm and dry. HEAD: Normocephalic. EYES: No scleral icterus. No injection or drainage. NECK: Supple, trachea midline. No JVD or lymphadenopathy. CARDIOVASCULAR: Regular rate and rhythm without murmurs, gallops, or rubs. RESPIRATORY: Breath sounds equal bilaterally. No accessory muscle use. GASTROINTESTINAL: Abdomen soft, non-tender, nondistended. MUSCULOSKELETAL: No cyanosis, or edema. BACK: Nontender without obvious deformity. No CVA tenderness. A/P Assessment and Plan IMPRESSION: 1. Bilateral lung infiltrate with ongoing fever. He has been treated with antibiotic. Cultures have been negative. Possibility of inflammatory process of the lung or alveolitis. 2. Diabetes mellitus. 3. Renal insufficiency has improved. 4. Benign prostatic hypertrophy. 5. Bipolar disorder. 6. Organising Pn, eiosinophilic Pn PLAN: Cont Abx per ID, Rocephin and Vanco until 11/29 DW Pt Stable from Pulm standpoint Cont Present management Han Gonsalves MD Nov 27, 2017 10:46
--- NOTE | 2017-11-27 11:18 | HHI.PR ---
Subjective Remarks Follow-up endocarditis. Patient with low-grade fever T-max of 100.1. Will alert ID Objective Vitals Vital Signs Date Time Temp Pulse Resp B/P (MAP) Pulse Ox O2 Delivery O2 Flow Rate FiO2 11/27/17 08:00 Room Air 11/27/17 08:00 97 11/27/17 08:00 99.1 102 18 127/69 (88) 99 11/27/17 05:20 99.7 106 16 119/66 (83) 99 11/27/17 03:57 100 11/27/17 00:01 93 11/27/17 00:00 100.1 97 16 129/72 (91) 96 11/26/17 21:46 100.1 98 16 122/61 (81) 91 11/26/17 21:00 Room Air 11/26/17 20:34 92 11/26/17 18:44 18 11/26/17 16:00 97.9 96 20 135/66 (89) 97 11/26/17 12:00 98.4 94 20 123/64 (83) 99 11/26/17 12:00 82 I/O 11/26/17 11/26/17 11/26/17 11/27/17 11/27/17 11/27/17 07:00 15:00 23:00 07:00 15:00 23:00 Intake Total 480 ml 1440 ml 720 ml Output Total 1500 ml 1000 ml 1540 ml Balance -1020 ml 440 ml -820 ml Intake Oral 480 ml 1440 ml 720 ml Output Urine Total 1500 ml 1000 ml 1540 ml # Bowel Movements 1 0 Result Diagram: 11/24/17 0530 11/26/17 0550 Imaging Last Impressions Chest X-Ray 11/15/17 0000 Signed Impressions: CONCLUSION: 1. Improved aeration of the lungs compared to the previous examination with mi ld scattered infiltrates still noted. Lower Extremity Ultrasound 11/09/17 0000 Signed Impressions: CONCLUSION: 1. There is nonocclusive thrombus within the right common femoral vein. 2. The remaining veins of the right lower extremity are patent. Abdomen MRI 11/03/17 0000 Signed Impressions: CONCLUSION: 1. Nonspecific heterogeneous signal and enhancement pattern of the liver as de scribed above and not convincingly changed from the prior CT. This is not parti cularly masslike or with organized fluid. A transient phenomenon related to hep atomegaly and/or hepatocellular disease is thought most likely. Hepatic abscess es are considered unlikely. 2. Small spleen and it also has diffusely heterogeneous signal and enhancement . Acute or subacute superimposed on chronic splenic infarcts are considered mos t likely. No significant change from the CT. In addition, no particularly mass like area and also no evidence of organized fluid so splenic abscesses are cons idered less likely. Abdomen/Pelvis CT 10/27/17 Signed Impressions: CONCLUSION: 1. No evidence of retroperitoneal hemorrhage. 2. Bibasilar subsegmental airspace disease and small bilateral effusions. 3. Patchy areas of hypodensity throughout the liver and spleen of uncertain et iology. Considering patient's history a septic vascular embolic process should be considered. 4. Minimal air in the urinary bladder. 5. Developing anasarca. Chest CT 10/25/17 Addendum Impressions: CONCLUSION: 1. Multiple bilateral scattered interstitial and airspace infiltrates througho ut both lung yuen suggestive of some type of inflammatory process. 2. Abnormal appearance of the liver. Recommend CT scan of the abdomen with IV contrast for further evaluation. Brain MRI 10/25/17 Signed Impressions: CONCLUSION: 1. Unremarkable MRI examination of the brain. Specifically, no cerebral edema or diffusion abnormality to suggest encephalitis. Head CT 10/24/17 Signed Impressions: CONCLUSION: 1. No acute intracranial abnormality. Gall Bladder Ultrasound 10/23/17 Signed Impressions: CONCLUSION: 1. There is increased echogenicity of the liver suggestive of fatty infiltrati on and/or hepatocellular disease. 2. No evidence of gallstones or biliary tract obstruction. Renal Ultrasound 10/19/17 Signed Impressions: Service Date/Time: Thursday, October 19, 2017 09:46 - CONCLUSION: Normal examination. Alexx Baig MD Objective Remarks GENERAL: 42 yo M appears in NAD CARDIOVASCULAR: Regular rate and rhythm without murmurs, gallops, or rubs. RESPIRATORY: Breath sounds equal bilaterally. No accessory muscle use. GASTROINTESTINAL: Abdomen soft, non-tender, nondistended. MUSCULOSKELETAL: No cyanosis, or edema. Decreasing necrotic area on the tips of third and fourth right fingers BACK: Nontender without obvious deformity. No CVA tenderness. Procedures Bronchoscopy, LP, right radial arterial cannulation and SHASHI Date of Insertion: October 19, 2017 A/P Problem List: (1) Acute respiratory failure ICD Code: J96.00 - Acute respiratory failure, unspecified whether with hypoxia or hypercapnia (2) Acute encephalopathy ICD Code: G93.40 - Encephalopathy, unspecified Status: Acute (3) Normocytic anemia ICD Code: D64.9 - Anemia, unspecified (4) Lactic acidosis ICD Code: E87.2 - Acidosis Status: Acute (5) Hypoalbuminemia ICD Code: E88.09 - Other disorders of plasma-protein metabolism, not elsewhere classified (6) Hypophosphatemia ICD Code: E83.39 - Other disorders of phosphorus metabolism Status: Acute (7) Hypokalemia ICD Code: E87.6 - Hypokalemia Status: Acute (8) Hypermagnesemia ICD Code: E83.41 - Hypermagnesemia (9) Acute kidney injury ICD Code: N17.9 - Acute kidney failure, unspecified Status: Acute (10) Leukocytosis ICD Code: D72.829 - Elevated white blood cell count, unspecified Status: Acute (11) Hyponatremia ICD Code: E87.1 - Hypo-osmolality and hyponatremia Status: Acute (12) Hypertension ICD Code: I10 - Essential (primary) hypertension (13) Pyrexia ICD Code: R50.9 - Fever, unspecified Status: Acute (14) Depression ICD Code: F32.9 - Major depressive disorder, single episode, unspecified (15) Ketoacidosis due to secondary diabetes ICD Code: E13.10 - Other specified diabetes mellitus with ketoacidosis without coma Status: Acute (16) BMI 37.0-37.9, adult ICD Code: Z68.37 - Body mass index (BMI) 37.0-37.9, adult Status: Acute Assessment and Plan 42-year-old man with: Endocarditis, sepsis, fevers NSVT secondary to electrolyte abnormalities Patient has multiple embolic lesions, SHASHI shows aortic valve vegetation 0.7 x 0.8 cm Infectious disease recommends staying with Rocephin and vancomycin for now, patient will need antibiotics until November 29, 2017. 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 Dw Dr. Sanchez, has Vishal pulmonary infiltrates, etiology? biopsy suggestive of eosinophilic PNA, organizing PNA. . Trial Naprosyn. No evidence of new infection Hypertension Continue Norvasc, Coreg,and hydralazine. Anxiety Continue Xanax Acute hypoxic and hypercarbic respiratory failure. Resolved Bilateral pulmonary infiltrate. Improved Extubated 10/24/2017, doing well on room air Pulmonology consulted for abnormalities on imaging Upper GI bleed Gastroenterology signed off Continue pantoprazole Right lower extremity pain Nonocclusive thrombus and currently on 40 subcu of Lovenox daily(presumably not given therapeutic dose 2 weeks ago secondary to history of GI bleed and the risks hemorrhoids from embolic lesions) at this time likelihood of bleeding is less will increase Lovenox dose to therapeutic 90 mg subcu every 12H before discharge and switch to Eliquis when ready to leave the hospital Doppler + DVT. Patient complaining of leg pain Diabetes mellitus Continue sliding-scale insulin with Accu-Cheks Continue Levemir , hemoglobin A1c 13. Diabetic diet Diabetic education Tinea cruris Continue nystatin Neuropathy. Increase gabapentin. DVT prophylaxis Lovenox Discharge Planning Discharge to SNF when arranged Problem Qualifiers (1) Acute respiratory failure: Qualified Codes: J96.01 - Acute respiratory failure with hypoxia; J96.02 - Acute respiratory failure with hypercapnia (2) Pyrexia: Qualified Codes: R50.9 - Fever, unspecified (3) Depression: Qualified Codes: F32.9 - Major depressive disorder, single episode, unspecified Martir Soto MD Nov 27, 2017 11:18
--- NOTE | 2017-11-27 12:11 | HHI.IDPN ---
Subjective Subjective Remarks Patient is a 42-year-old male, brought into the hospital for evaluation of multiple symptoms. He apparently has been having problem with poor p.o. intake , and thirst and increasing fluid intake. There is also mention that he has had problem with nausea and vomiting and some confusion. The symptoms have been going on for about a month. Was brought into the emergency room, and he was found to have a blood sugar of 1800, creatinine was up to 3, sodium 21, and he has multiple abnormal electrolytes. He also had acidosis, and high fevers. His white count was elevated. In the ED he became more unresponsive, and he ended up getting intubated. He was initially on pressors. He was also found to have a very elevated CPK. His electrolytes stabilized, and his acidosis improved. Creatinine improved, and he has improvement in his urine output. He had 2 blood cultures done and those are negative. He was started on empiric antibiotics for possible aspiration. Initial urinalysis was unremarkable. Patient remains on the vent. His mental status still has not improved. Neurology has been consulted. Patient's temperatures seem to have improved. His chest x-ray showing bilateral pulmonary infiltrates and some nodular infiltrates. He has been getting vancomycin, cefepime, and Flagyl. His CPKs are still elevated, and his LFTs were also elevated. Patient also during his hospitalization had episode of V. tach and was resuscitated successfully. Infectious disease consultation has been requested to evaluate patient with high fevers. Notes reviewed C/O pain in his R leg Wants to know about diabetes education He is not SOB, on RA No diarrhea No abdominal pain, no N/V Voiding ok Off steroids, got last dose 11/22 Started having low grade fevers again 11/23 Antibiotics Rocephin Vancomycin Current Medications Medications (Trade) Dose Ordered Sig/Jacky Route Start Time Stop Time Status Last Admin (NS Flush) 2 ml UNSCH PRN IV FLUSH 10/19/17 02:30 11/13/17 00:10 (NS Flush) 2 ml BID IV FLUSH 10/19/17 09:00 11/27/17 09:16 (Albuterol Neb) 2.5 mg Q2HR NEB PRN INH 10/19/17 02:30 10/24/17 08:36 (Milk Of Magnesia Liq) 30 ml Q12H PRN PO 10/19/17 02:30 Future Hold (Senokot) 17.2 mg Q12H PRN PO 10/19/17 02:30 Future Hold (Dulcolax Supp) 10 mg DAILY PRN RECTAL 10/19/17 02:30 (Zofran Odt) 4 mg Q6H PRN PO 10/19/17 02:30 10/29/17 23:44 (Tears Naturale Opth Soln) 1 drop Q8HR EACH EYE 10/19/17 06:00 11/27/17 05:23 (Peridex 0.12% Liq) 15 ml BID@08,20 MT 10/19/17 08:00 11/27/17 09:28 (Brethine Inj) 1 mg UNSCH PRN SQ 10/19/17 07:45 (Lactulose Liq) 30 ml DAILY PRN PO 10/23/17 21:30 Future Hold (D50w (Vial) Inj) 50 ml UNSCH PRN IV PUSH 10/24/17 21:00 (Glucagon Inj) 1 mg UNSCH PRN OTHER 10/24/17 21:00 (Levemir Inj) 5 units Q12HR SQ 10/25/17 10:00 11/27/17 09:27 (Norvasc) 10 mg DAILY PO 10/26/17 09:00 11/27/17 09:13 (Lovenox Inj) 40 mg Q24H SQ 10/26/17 08:00 11/27/17 09:15 (Protonix) 40 mg Q12HR PO 10/27/17 21:00 11/27/17 09:13 (Apresoline) 50 mg Q8HR PO 10/27/17 22:00 11/27/17 05:22 (NovoLOG SUPPLEMENTAL SCALE) 1 ACHS SLIDING SCALE SQ 10/27/17 17:00 11/23/17 12:35 (Mycostatin Powder) 1 applic Q12HR TOPICAL 10/27/17 21:00 11/27/17 09:27 (Ultram) 50 mg Q8H PRN PO 10/29/17 13:15 11/27/17 00:34 Pharmacy Profile Note 0 ml @ 0 mls/hr UNSCH OTHER 10/31/17 12:00 Ceftriaxone Sodium 2000 mg/ Sodium Chloride 100 ml @ 200 mls/hr Q24H IV 10/31/17 13:00 11/29/17 23:00 11/26/17 12:47 (Coreg) 6.25 mg Q12HR PO 11/02/17 21:00 11/27/17 09:13 (Xanax) 0.25 mg Q6HR PRN PO 11/03/17 12:30 11/27/17 00:30 (Tylenol) 325 mg Q4H PRN PO 11/03/17 18:45 11/24/17 05:13 (Questran 4 Gm Pkt) 4 gm DAILY PO 11/05/17 09:00 11/27/17 09:13 (Librium) 50 mg TID PRN PO 11/05/17 13:15 (Lactinex) 1 tab Q12HR PO 11/07/17 21:00 11/27/17 09:13 (NS Flush) See Protocol DAILY IV FLUSH 11/11/17 09:00 11/27/17 09:16 (NS Flush) See Protocol UNSCH PRN IV FLUSH 11/10/17 18:00 (Heparin Central Flush) See Protocol DAILY IV FLUSH 11/11/17 09:00 11/27/17 09:14 (Heparin Central Flush) See Protocol UNSCH PRN IV FLUSH 11/10/17 18:00 11/23/17 02:29 (NS Flush) UNSCH PRN IV FLUSH 11/10/17 18:00 (Melatonin) 5 mg HS PRN PO 11/12/17 15:30 11/26/17 21:43 (Neurontin) 100 mg TID PO 11/16/17 18:00 11/27/17 09:13 Vancomycin HCl 2000 mg/Sodium Chloride 520 ml @ 250 mls/hr Q12H IV 11/22/17 22:00 11/27/17 10:06 Lines PICC no evidence of infection Past Medical History Depression/anxiety Hypertension NSAID use Allergies: Coded Allergies: No Known Allergies (Unverified Allergy, Unknown, 10/18/17) Objective . Vital Signs Date Time Temp Pulse Resp B/P (MAP) Pulse Ox O2 Delivery O2 Flow Rate FiO2 11/27/17 08:00 Room Air 11/27/17 08:00 97 11/27/17 08:00 99.1 102 18 127/69 (88) 99 11/27/17 05:20 99.7 106 16 119/66 (83) 99 11/27/17 03:57 100 11/27/17 00:01 93 11/27/17 00:00 100.1 97 16 129/72 (91) 96 11/26/17 21:46 100.1 98 16 122/61 (81) 91 11/26/17 21:00 Room Air 11/26/17 20:34 92 11/26/17 18:44 18 11/26/17 16:00 97.9 96 20 135/66 (89) 97 . Laboratory Tests Test 11/26/17 05:50 Creatinine 0.81 MG/DL Estimat Glomerular Filtration Rate 128 ML/MIN Imaging Chest X-Ray 11/15/17 0000 Signed Impressions: CONCLUSION: 1. Improved aeration of the lungs compared to the previous examination with mi ld scattered infiltrates still noted. Lower Extremity Ultrasound 11/09/17 0000 Signed Impressions: CONCLUSION: 1. There is nonocclusive thrombus within the right common femoral vein. 2. The remaining veins of the right lower extremity are patent. Abdomen MRI 11/03/17 0000 Signed Impressions: CONCLUSION: 1. Nonspecific heterogeneous signal and enhancement pattern of the liver as de scribed above and not convincingly changed from the prior CT. This is not parti cularly masslike or with organized fluid. A transient phenomenon related to hep atomegaly and/or hepatocellular disease is thought most likely. Hepatic abscess es are considered unlikely. 2. Small spleen and it also has diffusely heterogeneous signal and enhancement . Acute or subacute superimposed on chronic splenic infarcts are considered mos t likely. No significant change from the CT. In addition, no particularly mass like area and also no evidence of organized fluid so splenic abscesses are cons idered less likely. Abdomen/Pelvis CT 10/27/17 0000 Signed Impressions: CONCLUSION: 1. No evidence of retroperitoneal hemorrhage. 2. Bibasilar subsegmental airspace disease and small bilateral effusions. 3. Patchy areas of hypodensity throughout the liver and spleen of uncertain et iology. Considering patient's history a septic vascular embolic process should be considered. 4. Minimal air in the urinary bladder. 5. Developing anasarca. Chest CT 10/25/17 0000 Signed Impressions: CONCLUSION: 1. Multiple bilateral scattered interstitial and airspace infiltrates througho ut both lung yuen suggestive of some type of inflammatory process. 2. Abnormal appearance of the liver. Recommend CT scan of the abdomen with IV contrast for further evaluation. Brain MRI 10/25/17 0000 Signed Impressions: CONCLUSION: 1. Unremarkable MRI examination of the brain. Specifically, no cerebral edema or diffusion abnormality to suggest encephalitis. Head CT 10/24/17 0000 Signed Impressions: CONCLUSION: 1. No acute intracranial abnormality. Gall Bladder Ultrasound 10/23/17 0000 Signed Impressions: CONCLUSION: 1. There is increased echogenicity of the liver suggestive of fatty infiltrati on and/or hepatocellular disease. 2. No evidence of gallstones or biliary tract obstruction. Renal Ultrasound 10/19/17 0000 Signed Impressions: Service Date/Time: Thursday, October 19, 2017 09:46 - CONCLUSION: Normal examination. Alexx Baig MD Physical Exam GENERAL: Awake and alert, NAD. SKIN: Cool and dry. No generalized rash. HEAD: Atraumatic. Normocephalic. No temporal wasting, or tenderness. EYES: [place] conjunctiva. No petechia or hemorrhage. Has dirty sclera. EARS, NOSE AND THROAT: Nose without bleeding or purulent nasal discharge. Moist mucosa NECK: Trachea midline. Supple and not tender, no meningeal signs CARDIOVASCULAR: Regular rate and rhythm. No murmurs, rubs or gallops heard RESPIRATORY: Decreased BS at bases ABDOMEN: Distended, mild tenderness, not guarding, bowel sounds present and hypoactive. EXTREMITIES: Warm, has pitting edema. NEUROLOGICAL: Grossly non-focal PSYCHIATRIC: Calm and cooperative LINE: No evidence of infection Assessment & Plan Remarks IMPRESSION Possible sepsis on initial presentation with fevers, dec LOC, MOSF - better - source possible lung, has aishwarya nodular infiltrates, BC negative, no sputum C/S - possibly initial source is his endocarditis - he has been on Abx sonce 10/19 Has multiple embolic lesions, source? IE - his BC have been negative - SHASHI with small AV vegetation Endocarditis - C/S have been negative on admission - ?Culture negative endocarditis Aishwarya pulmonary infiltrates, etiology? 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
[2017-11-27] MEDS: cefTRIAXone INJ 2,000 MG in SODIUM CHLORIDE 0.9% INJ 100 ML IV SCH (14:53)
[2017-11-27] MEDS: NAPROXEN 375 MG TAB PO SCH ×2 (15:15→21:00)
--- NOTE | 2017-11-27 16:47 | RADRPT ---
EXAM DATE: 11/27/2017 4:38 PM EDT AGE/SEX: 42 years / Male INDICATIONS: Right leg swelling. CLINICAL DATA: This is the patient's subsequent encounter. Patient reports that signs and symptoms h ave been present for 3 weeks and indicates a pain score of 2/10. MEDICAL/SURGICAL HISTORY: . Hypertension. Confusion. Syncope. Dyspnea. Bipolar disorder. Depres daniella. Coronary artery disease. None. [place]PAR[place]: [facility] [place]. . TECHNIQUE: Venous ultrasound of both lower extremities was performed from the inguinal ligament to t he proximal calf. Real-time, color Doppler and spectral tracing, compression and augmentation techni ques were used. FINDINGS: There are abnormal intraluminal echoes within the common femoral vein with incomplete comp ression. Blood flow remains present. The remaining veins in the right lower extremity are patent. There is a lymph node in the right inguinal region measuring 2.2 x 0.8 x 1.4 cm. CONCLUSION: 1. Persistent nonocclusive thrombus within the right common femoral vein. 2. The remaining veins of the right lower extremity are patent. Electronically signed by: Lucio Bonilla MD 11/27/2017 4:45 PM EDT
[2017-11-27] MEDS ORDERED: TRAM50 PO (17:23)
[2017-11-27] MEDS ORDERED: ALPR.25 PO (17:23)
[2017-11-27] MEDS ORDERED: ENOXAPARIN SODIUM 40 MG/0.4 ML SYRINGE SQ SCH (21:00)
[2017-11-27] MEDS: ENOXAPARIN SODIUM 100 MG/ML SYRINGE SQ SCH (21:30)
[2017-11-28] VITALS (7 sets, daily range): BP systolic 109–142; BP diastolic 60–78; PULSE 82–110; RESP 18–20; TEMP 97.9–99; O2SAT 96–100
[2017-11-28] MEDS: traMADol HCL 50 MG TAB PO PRN ×2 (00:11→23:33)
[2017-11-28] MEDS: MELATONIN 5 MG TAB PO PRN ×2 (00:11→23:32)
[2017-11-28] MEDS: hydrALAZINE HCL 50 MG TAB PO SCH ×3 (05:13→20:32)
[2017-11-28] MEDS: ARTIFICIAL TEARS OPTH SOLN 15 ML BTL EACH EYE SCH ×3 (05:13→20:32)
[2017-11-28 07:32] LABS: AUTOMATED NEUTROPHIL # 8.9 TH/MM3 (1.8-7.7); BASOPHIL % 0.2 % (0.0-2.0); EOSINOPHIL # 0.3 TH/MM3 (0-0.4); EOSINOPHIL % 2.4 % (0.0-4.0); HEMATOCRIT 26.1 % (39.0-51.0); HEMOGLOBIN 8.7 GM/DL (13.0-17.0); LYMPH % 15.2 % (9.0-44.0); LYMPHOCYTE # 1.9 TH/MM3 (1.0-4.8); MEAN CELL VOLUME 80.6 FL (80.0-100.0); MEAN CORPUSCULAR HGB CONC 33.5 % (32.0-36.0); MEAN PLATELET VOLUME 8.3 FL (7.0-11.0); MONO % 9.7 % (0.0-8.0); MONOCYTE # 1.2 TH/MM3 (0-0.9); NEUT % 72.5 % (16.0-70.0); PLATELET COUNT 484 TH/MM3 (150-450); RED BLOOD COUNT 3.24 MIL/MM3 (4.50-5.90); RED CELL DISTRIBUTION WIDTH 15.9 % (11.6-17.2); WHITE BLOOD COUNT 12.2 TH/MM3 (4.0-11.0)
[2017-11-28 07:34] LABS: BICARBONATE 25.6 MEQ/L (21.0-32.0); CALCIUM 9.5 MG/DL (8.5-10.1); CREATININE 0.81 MG/DL (0.60-1.30); MAGNESIUM 2.1 MG/DL (1.5-2.5)
[2017-11-28] MEDS: INSULIN ASPART SUPPLEMENTAL SCALE SQ SCH ×4 (08:00→20:34)
[2017-11-28] MEDS: CHLORHEXIDINE 0.12% (ORAL KIT) 15 ML CUP MT SCH ×2 (08:59→20:00)
[2017-11-28] MEDS ORDERED: ENOXAPARIN SODIUM 100 MG/ML SYRINGE SQ SCH (09:00)
--- NOTE | 2017-11-28 09:27 | HHI.PR ---
Subjective Remarks Follow-up endocarditis right lower extremity DVT. Improved fever curve on naproxen Objective Vitals Vital Signs Date Time Temp Pulse Resp B/P (MAP) Pulse Ox O2 Delivery O2 Flow Rate FiO2 11/28/17 08:00 98.3 94 20 133/74 (93) 100 11/28/17 04:00 98.2 85 18 123/68 (86) 96 11/28/17 03:56 82 11/28/17 00:11 Room Air 11/28/17 00:00 99.0 90 18 128/66 (86) 98 11/27/17 23:48 93 11/27/17 21:23 98 11/27/17 20:00 99.1 97 18 128/59 (82) 99 11/27/17 20:00 Room Air 11/27/17 19:45 94 11/27/17 16:00 93 11/27/17 16:00 99.3 94 18 120/64 (82) 99 11/27/17 12:00 98.5 91 19 120/67 (84) 96 I/O 11/27/17 11/27/17 11/27/17 11/28/17 11/28/17 11/28/17 07:00 15:00 23:00 07:00 15:00 23:00 Intake Total 720 ml 1200 ml 240 ml Output Total 1540 ml 1000 ml 275 ml Balance -820 ml 200 ml -35 ml Intake Oral 720 ml 1200 ml 240 ml Output Urine Total 1540 ml 1000 ml 275 ml # Voids 1 # Bowel Movements 0 0 1 Result Diagram: 11/28/17 0648 11/28/17 0648 Imaging Last Impressions Lower Extremity Ultrasound 11/27/17 0000 Signed Impressions: CONCLUSION: 1. Persistent nonocclusive thrombus within the right common femoral vein. 2. The remaining veins of the right lower extremity are patent. Chest X-Ray 11/15/17 0000 Signed Impressions: CONCLUSION: 1. Improved aeration of the lungs compared to the previous examination with mi ld scattered infiltrates still noted. Abdomen MRI 11/03/17 0000 Signed Impressions: CONCLUSION: 1. Nonspecific heterogeneous signal and enhancement pattern of the liver as de scribed above and not convincingly changed from the prior CT. This is not parti cularly masslike or with organized fluid. A transient phenomenon related to hep atomegaly and/or hepatocellular disease is thought most likely. Hepatic abscess es are considered unlikely. 2. Small spleen and it also has diffusely heterogeneous signal and enhancement . Acute or subacute superimposed on chronic splenic infarcts are considered mos t likely. No significant change from the CT. In addition, no particularly mass like area and also no evidence of organized fluid so splenic abscesses are cons idered less likely. Abdomen/Pelvis CT 10/27/17 Signed Impressions: CONCLUSION: 1. No evidence of retroperitoneal hemorrhage. 2. Bibasilar subsegmental airspace disease and small bilateral effusions. 3. Patchy areas of hypodensity throughout the liver and spleen of uncertain et iology. Considering patient's history a septic vascular embolic process should be considered. 4. Minimal air in the urinary bladder. 5. Developing anasarca. Chest CT 10/25/17 Addendum Impressions: CONCLUSION: 1. Multiple bilateral scattered interstitial and airspace infiltrates througho ut both lung yuen suggestive of some type of inflammatory process. 2. Abnormal appearance of the liver. Recommend CT scan of the abdomen with IV contrast for further evaluation. Brain MRI 10/25/17 Signed Impressions: CONCLUSION: 1. Unremarkable MRI examination of the brain. Specifically, no cerebral edema or diffusion abnormality to suggest encephalitis. Head CT 10/24/17 Signed Impressions: CONCLUSION: 1. No acute intracranial abnormality. Gall Bladder Ultrasound 10/23/17 Signed Impressions: CONCLUSION: 1. There is increased echogenicity of the liver suggestive of fatty infiltrati on and/or hepatocellular disease. 2. No evidence of gallstones or biliary tract obstruction. Renal Ultrasound 10/19/17 Signed Impressions: Service Date/Time: Thursday, October 19, 2017 09:46 - CONCLUSION: Normal examination. Alexx Baig MD Objective Remarks GENERAL: 42 yo M appears in NAD CARDIOVASCULAR: Regular rate and rhythm without murmurs, gallops, or rubs. RESPIRATORY: Breath sounds equal bilaterally. No accessory muscle use. GASTROINTESTINAL: Abdomen soft, non-tender, nondistended. MUSCULOSKELETAL: No cyanosis, or edema. Decreasing necrotic area on the tips of third and fourth right fingers BACK: Nontender without obvious deformity. No CVA tenderness. Procedures Bronchoscopy, LP, right radial arterial cannulation and SHASHI Date of Insertion: October 19, 2017 A/P Problem List: (1) Acute respiratory failure ICD Code: J96.00 - Acute respiratory failure, unspecified whether with hypoxia or hypercapnia (2) Acute encephalopathy ICD Code: G93.40 - Encephalopathy, unspecified Status: Acute (3) Normocytic anemia ICD Code: D64.9 - Anemia, unspecified (4) Lactic acidosis ICD Code: E87.2 - Acidosis Status: Acute (5) Hypoalbuminemia ICD Code: E88.09 - Other disorders of plasma-protein metabolism, not elsewhere classified (6) Hypophosphatemia ICD Code: E83.39 - Other disorders of phosphorus metabolism Status: Acute (7) Hypokalemia ICD Code: E87.6 - Hypokalemia Status: Acute (8) Hypermagnesemia ICD Code: E83.41 - Hypermagnesemia (9) Acute kidney injury ICD Code: N17.9 - Acute kidney failure, unspecified Status: Acute (10) Leukocytosis ICD Code: D72.829 - Elevated white blood cell count, unspecified Status: Acute (11) Hyponatremia ICD Code: E87.1 - Hypo-osmolality and hyponatremia Status: Acute (12) Hypertension ICD Code: I10 - Essential (primary) hypertension (13) Pyrexia ICD Code: R50.9 - Fever, unspecified Status: Acute (14) Depression ICD Code: F32.9 - Major depressive disorder, single episode, unspecified (15) Ketoacidosis due to secondary diabetes ICD Code: E13.10 - Other specified diabetes mellitus with ketoacidosis without coma Status: Acute (16) BMI 37.0-37.9, adult ICD Code: Z68.37 - Body mass index (BMI) 37.0-37.9, adult Status: Acute Assessment and Plan 42-year-old man with: Endocarditis, sepsis, fevers NSVT secondary to electrolyte abnormalities Patient has multiple embolic lesions, SHASHI shows aortic valve vegetation 0.7 x 0.8 cm Infectious disease recommends staying with Rocephin and vancomycin for now, patient will need antibiotics until tomorrow November 29, 2017. 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 Dw Dr. Sanchez, has Vishal pulmonary infiltrates, etiology? biopsy suggestive of eosinophilic PNA, organizing PNA. . Improved on Naprosyn. No evidence of new infection Hypertension Continue Norvasc, Coreg,and hydralazine. Anxiety Continue Xanax Acute hypoxic and hypercarbic respiratory failure. Resolved Bilateral pulmonary infiltrate. Improved Extubated 10/24/2017, doing well on room air Pulmonology consulted for abnormalities on imaging Upper GI bleed Gastroenterology signed off Continue pantoprazole Right lower extremity pain Nonocclusive thrombus and currently on 40 subcu of Lovenox daily(presumably not given therapeutic dose 2 weeks ago secondary to history of GI bleed and the risks hemorrhoids from embolic lesions) at this time likelihood of bleeding is less will increase Lovenox dose to therapeutic 90 mg subcu every 12H before discharge and switch to Eliquis when ready to leave the hospital. Repeat labs in the morning Doppler + DVT. Patient complaining of leg pain Diabetes mellitus Continue sliding-scale insulin with Accu-Cheks Continue Levemir , hemoglobin A1c 13. Diabetic diet Diabetic education Tinea cruris Continue nystatin Neuropathy. Increase gabapentin. DVT prophylaxis Lovenox Discharge Planning Discharge to home tomorrow Problem Qualifiers (1) Acute respiratory failure: Qualified Codes: J96.01 - Acute respiratory failure with hypoxia; J96.02 - Acute respiratory failure with hypercapnia (2) Pyrexia: Qualified Codes: R50.9 - Fever, unspecified (3) Depression: Qualified Codes: F32.9 - Major depressive disorder, single episode, unspecified Martir Soto MD Nov 28, 2017 09:26
[2017-11-28] MEDS: LACTOBACILLUS ACIDOPHILUS TAB PO SCH ×2 (09:29→20:32)
[2017-11-28] MEDS: PANTOPRAZOLE SOD 40 MG DELAYED RELEASE TAB PO SCH ×2 (09:29→20:32)
[2017-11-28] MEDS: CARVEDILOL 6.25 MG TAB PO SCH ×2 (09:31→20:32)
[2017-11-28] MEDS: CHOLESTYRAMINE 4 GM PACKET PO SCH (09:31)
[2017-11-28] MEDS: NAPROXEN 375 MG TAB PO SCH ×2 (09:31→20:32)
[2017-11-28] MEDS: ENOXAPARIN SODIUM 100 MG/ML SYRINGE SQ SCH ×2 (09:31→20:33)
[2017-11-28] MEDS: GABAPENTIN 100 MG CAP PO SCH ×3 (09:31→17:36)
[2017-11-28] MEDS ORDERED: AMLO10 PO (09:34)
[2017-11-28] MEDS ORDERED: APIX5TAB PO (09:34)
[2017-11-28] MEDS ORDERED: HYDR-3800 PO (09:34)
[2017-11-28] MEDS ORDERED: CARV6.25 PO (09:34)
[2017-11-28] MEDS ORDERED: LEVEMIR SQ (09:34)
[2017-11-28] MEDS ORDERED: GABA100C4 PO (09:34)
--- NOTE | 2017-11-28 09:35 | HHI.DCPOC ---
Discharge Care Plan Diagnosis: (1) Sepsis Your Health Problems Are: Difficulty with ADL Exercise Tolerance Goals to Promote Your Health * To prevent worsening of your condition and complications * To maintain your health at the optimal level Directions to Meet Your Goals Take your medications as prescribed Follow your dietary instruction Follow activity as directed Keep your appointments as scheduled Take your immunizations and boosters as scheduled If your symptoms worsen call your PCP, if no PCP go to Urgent Care Center or Emergency Room Smoking is Dangerous to Your Health. Avoid second hand smoke Call the 24-hour hour crisis hotline for domestic abuse at Martir Soto MD Nov 28, 2017 09:34
[2017-11-28] MEDS: SODIUM CHLORIDE 0.9% FLUSH 10 ML FLUSH IV FLUSH SCH ×3 (09:42→20:31)
[2017-11-28] MEDS ORDERED: LANCETS1 MI1 (09:43)
[2017-11-28] MEDS ORDERED: GLUCKIT15 (09:43)
[2017-11-28] MEDS ORDERED: GLUCTES12 (09:43)
[2017-11-28] MEDS: INSULIN DETEMIR 100 UNITS/ML VIAL SQ SCH ×2 (09:43→20:33)
[2017-11-28] MEDS ORDERED: INSU1MIS15 (09:43)
[2017-11-28] MEDS ORDERED: BIOM30MI (09:43)
[2017-11-28] MEDS: VANCOMYCIN INJ 2,000 MG in SODIUM CHLORID 0.9% 500 ML INJ 500 ML IV SCH ×2 (10:28→20:32)
[2017-11-28] MEDS ORDERED: CANE/WOOD/MENS1 MI1 (12:22)
[2017-11-28] MEDS: cefTRIAXone INJ 2,000 MG in SODIUM CHLORIDE 0.9% INJ 100 ML IV SCH (13:31)
--- NOTE | 2017-11-28 16:52 | HHI.PR ---
Subjective Remarks 42 YOAA male with Bipolar disorder, Lung infilt, fever Denies sob no CP Breathing better Ambulates in the hallway No Fever Objective Vital Signs Vital Signs Date Time Temp Pulse Resp B/P (MAP) Pulse Ox O2 Delivery O2 Flow Rate FiO2 11/28/17 12:00 85 11/28/17 12:00 98.3 92 20 109/60 (76) 97 11/28/17 08:30 Room Air 2.00 21 11/28/17 08:00 98.3 94 20 133/74 (93) 100 11/28/17 08:00 85 11/28/17 04:00 98.2 85 18 123/68 (86) 96 11/28/17 03:56 82 11/28/17 00:11 Room Air 11/28/17 00:00 99.0 90 18 128/66 (86) 98 11/27/17 23:48 93 11/27/17 21:23 98 11/27/17 20:00 99.1 97 18 128/59 (82) 99 11/27/17 20:00 Room Air 11/27/17 19:45 94 I/O 11/27/17 11/27/17 11/27/17 11/28/17 11/28/17 11/28/17 07:00 15:00 23:00 07:00 15:00 23:00 Intake Total 720 ml 1200 ml 240 ml Output Total 1540 ml 1000 ml 275 ml Balance -820 ml 200 ml -35 ml Intake Oral 720 ml 1200 ml 240 ml Output Urine Total 1540 ml 1000 ml 275 ml # Voids 1 # Bowel Movements 0 0 1 Result Diagram: 11/28/17 0648 11/28/17 0648 Objective Remarks GENERAL: WBWN AA male, NAD SKIN: Warm and dry. HEAD: Normocephalic. EYES: No scleral icterus. No injection or drainage. NECK: Supple, trachea midline. No JVD or lymphadenopathy. CARDIOVASCULAR: Regular rate and rhythm without murmurs, gallops, or rubs. RESPIRATORY: Breath sounds equal bilaterally. No accessory muscle use. GASTROINTESTINAL: Abdomen soft, non-tender, nondistended. MUSCULOSKELETAL: No cyanosis, or edema. BACK: Nontender without obvious deformity. No CVA tenderness. A/P Assessment and Plan IMPRESSION: 1. Bilateral lung infiltrate with ongoing fever. He has been treated with antibiotic. Cultures have been negative. Possibility of inflammatory process of the lung or alveolitis. 2. Diabetes mellitus. 3. Renal insufficiency has improved. 4. Benign prostatic hypertrophy. 5. Bipolar disorder. 6. Organising Pn, eiosinophilic Pn PLAN: Cont Abx per ID, Rocephin and Vanco until 11/29 DW Pt Stable from Pulm standpoint Cont Present management DC plans underway for home. Han Gonsalves MD Nov 28, 2017 16:52
[2017-11-28] MEDS: ALPRAZolam 0.25 MG TAB PO PRN (17:36)
[2017-11-29] VITALS: BP 142/63; PULSE 102; PULSE 94; RESP 20; TEMP 99.6; O2SAT 98
[2017-11-29 04:00] VITALS: BP 123/69; PULSE 83; PULSE 86; RESP 20; TEMP 98.2; O2SAT 98
[2017-11-29] MEDS: hydrALAZINE HCL 50 MG TAB PO SCH ×2 (05:31→13:26)
[2017-11-29] MEDS: ARTIFICIAL TEARS OPTH SOLN 15 ML BTL EACH EYE SCH ×2 (05:32→13:26)
[2017-11-29 07:59] VITALS: PULSE 89
[2017-11-29 08:00] VITALS: BP 126/61; PULSE 103; RESP 18; TEMP 98; O2SAT 97
[2017-11-29] MEDS: INSULIN ASPART SUPPLEMENTAL SCALE SQ SCH (08:00)
[2017-11-29] MEDS: CHLORHEXIDINE 0.12% (ORAL KIT) 15 ML CUP MT SCH (08:00)
[2017-11-29 08:10] VITALS: O2SAT 97
[2017-11-29] MEDS: PANTOPRAZOLE SOD 40 MG DELAYED RELEASE TAB PO SCH (09:53)
[2017-11-29] MEDS: CHOLESTYRAMINE 4 GM PACKET PO SCH (09:53)
[2017-11-29] MEDS: CARVEDILOL 6.25 MG TAB PO SCH (09:53)
[2017-11-29] MEDS: GABAPENTIN 100 MG CAP PO SCH ×2 (09:53→13:26)
[2017-11-29] MEDS: LACTOBACILLUS ACIDOPHILUS TAB PO SCH (09:54)
[2017-11-29] MEDS: SODIUM CHLORIDE 0.9% FLUSH 10 ML FLUSH IV FLUSH SCH ×2 (09:54→09:55)
[2017-11-29] MEDS: ENOXAPARIN SODIUM 100 MG/ML SYRINGE SQ SCH (09:56)
[2017-11-29] MEDS: VANCOMYCIN INJ 2,000 MG in SODIUM CHLORID 0.9% 500 ML INJ 500 ML IV SCH (09:56)
[2017-11-29] MEDS: INSULIN DETEMIR 100 UNITS/ML VIAL SQ SCH (09:56)
[2017-11-29] MEDS: NAPROXEN 375 MG TAB PO SCH (10:07)
--- NOTE | 2017-11-29 10:47 | HHI.DS ---
Discharge Summary Admission Date October 19, 2017 at 00:41 Discharge Date: Nov 29, 2017 Admitting Diagnosis DKA hyperthermia (1) Acute respiratory failure ICD Code: J96.00 - Acute respiratory failure, unspecified whether with hypoxia or hypercapnia Diagnosis: Principal (2) Acute encephalopathy ICD Code: G93.40 - Encephalopathy, unspecified Diagnosis: Principal Status: Acute (3) Normocytic anemia ICD Code: D64.9 - Anemia, unspecified Diagnosis: Principal (4) Lactic acidosis ICD Code: E87.2 - Acidosis Diagnosis: Principal Status: Acute (5) Hypoalbuminemia ICD Code: E88.09 - Other disorders of plasma-protein metabolism, not elsewhere classified Diagnosis: Principal (6) Hypophosphatemia ICD Code: E83.39 - Other disorders of phosphorus metabolism Diagnosis: Principal Status: Acute (7) Hypokalemia ICD Code: E87.6 - Hypokalemia Diagnosis: Principal Status: Acute (8) Hypermagnesemia ICD Code: E83.41 - Hypermagnesemia Diagnosis: Principal (9) Acute kidney injury ICD Code: N17.9 - Acute kidney failure, unspecified Diagnosis: Principal Status: Acute (10) Leukocytosis ICD Code: D72.829 - Elevated white blood cell count, unspecified Diagnosis: Principal Status: Acute (11) Hyponatremia ICD Code: E87.1 - Hypo-osmolality and hyponatremia Diagnosis: Principal Status: Acute (12) Hypertension ICD Code: I10 - Essential (primary) hypertension Diagnosis: Principal (13) Pyrexia ICD Code: R50.9 - Fever, unspecified Diagnosis: Principal Status: Acute (14) Depression ICD Code: F32.9 - Major depressive disorder, single episode, unspecified Diagnosis: Principal (15) Ketoacidosis due to secondary diabetes ICD Code: E13.10 - Other specified diabetes mellitus with ketoacidosis without coma Status: Acute (16) BMI 37.0-37.9, adult ICD Code: Z68.37 - Body mass index (BMI) 37.0-37.9, adult Diagnosis: Principal Status: Acute Procedures Bronchoscopy, LP, right radial arterial cannulation and SHASHI Brief History - From Admission This is a 42-year-old AA male. Date of admission 10/19/2017. Past medical history includes depression, hypertension. Patient has no known history of diabetes mellitus but has multiple family members with this diagnosis. Over the past month, patient has been experiencing these sequelae of thirst, diminished appetite. Patient was in residential until recently and has not had his blood sugar checked according to his sister. He denies any sick contacts. Since being released from residential, patient has been relatively noncompliant with his home medications due to underlying nausea/vomiting and delirium. Patient was drinking copious amounts of fluids at home. Due to his underlying illness is's family convinced him to come to the hospital for further evaluation treatment today. Name Efraín, patient noted to have a blood sugar 1800. Acute kidney injury creatinine of around 3. Sodium 121. Multiple electrolyte and mellitus and elevated ammonia level. Patient originally presented with fever around 105 to his facility. Received 4 mg of cyproheptadine per ED physician first possible serotonin syndrome. He received ice to fluid/water and acetaminophen/NSAIDs and his blood sugars currently subsiding. Patient became more unresponsive in the ED intervention was intubated with central line placed by ED physician. CBC/BMP: 11/28/17 0648 11/28/17 0648 Significant Findings Laboratory Tests Test 11/28/17 06:48 White Blood Count 12.2 TH/MM3 (4.0-11.0) Red Blood Count 3.24 MIL/MM3 (4.50-5.90) Hemoglobin 8.7 GM/DL (13.0-17.0) Hematocrit 26.1 % (39.0-51.0) Platelet Count 484 TH/MM3 (150-450) Neutrophils (%) (Auto) 72.5 % (16.0-70.0) Monocytes (%) (Auto) 9.7 % (0.0-8.0) Neutrophils # (Auto) 8.9 TH/MM3 (1.8-7.7) Monocytes # (Auto) 1.2 TH/MM3 (0-0.9) PE at Discharge GENERAL: 42 yo M appears in NAD CARDIOVASCULAR: Regular rate and rhythm without murmurs, gallops, or rubs. RESPIRATORY: Breath sounds equal bilaterally. No accessory muscle use. GASTROINTESTINAL: Abdomen soft, non-tender, nondistended. MUSCULOSKELETAL: No cyanosis, or edema. Decreasing necrotic area on the tips of third and fourth right fingers BACK: Nontender without obvious deformity. No CVA tenderness. Hospital Course Mr. Palomo is a 42-year-old male. He was admitted for fever and DKA. Electrolyte disturbances were present at time of admit. DKA and electrolyte disturbances are corrected. 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 Patient has been treated for his unknown carditis through time and finish his antibiotic treatments today. He has had improvements in all of his symptoms. Additionally a right lower extremity DVT was found and he is on Eliquis for this. He is tolerating these treatments well and symptoms from this have resolved. At this point he is medically stable and cleared for discharge to home. Will discharge home today with follow-up at the [facility]. Pt Condition on Discharge: Stable Discharge Disposition: Discharge Home Discharge Time: <= 30 minutes Discharge Instructions DIET: Follow Instructions for: As Tolerated, No Restrictions Activities you can perform: Regular-No Restrictions Follow up Referrals: PCP Follow-up - 1 Week PCP Follow-up @ [facility] - 1 Week New Medications: Apixaban (Eliquis) 5 Mg Tab 5 MG PO BID for Blood Clot Prevention, #60 TAB 0 Refills start after 10 mg is completed december 06 2017 Apixaban (Eliquis) 5 Mg Tab 10 MG PO BID for Blood Clot Prevention, #14 TAB 0 Refills Blood Glucose Monitoring W/Device (Glucocom Blood Glucose Mo W/Device) 1 Kit Kit KIT .XX DIRECTED for Blood Sugar Management, #1 Cane/Wood/Mens Standard (Cane/Wood/Mens Standard) 1 Mis Mis EA .XX DIRECTED, #1 Glucocom Test Strips (Glucocom Test Strips) 1 Jonelle Jonelle EA .XX DIRECTED for Blood Sugar Management, #1 Insulin Syringe/U-100/31G X 5/16" 1 ml (Insulin Syringe/U-100/31G X 5/16" 1 ml) 31 Gauge X 5/16" Mis EA .XX DIRECTED for Blood Sugar Management, #1 0 Refills Lancets (Lancets) 1 Mis Mis EA .XX DIRECTED for Blood Sugar Management, #1 0 Refills Parenteral Therapy Supplies (Sharpsafety Sharps Contai) 1 Mis Mis EA .XX DIRECTED, #1 0 Refills Alprazolam (Xanax) 0.25 Mg Tab 0.25 MG PO Q6HR PRN for anxiety, #10 TAB Amlodipine (Norvasc) 10 Mg Tab 10 MG PO DAILY for Blood Pressure Management, #30 TAB Carvedilol (Coreg) 6.25 Mg Tab 6.25 MG PO Q12HR for Blood Pressure Management, #60 TAB Gabapentin (Gabapentin) 100 Mg Cap 200 MG PO TID for Pain Management, #180 CAP Hydralazine HCl (Hydralazine HCl) 50 Mg Tablet 50 MG PO Q8HR for Blood Pressure Management, #90 TAB Insulin Detemir Inj (Levemir Inj) 1,000 unit/ 10 ML Vial 5 UNITS SQ Q12HR for Blood Sugar Management, #60 INJECTION Do not mix with any other Insulin. Tramadol (Ultram) 50 Mg Tab 50 MG PO Q8H PRN for PAIN 5-10, #10 TAB Charles Carney MD Nov 29, 2017 10:46
[2017-11-29 11:59] VITALS: PULSE 84
[2017-11-29] MEDS ORDERED: CANE/ALUMINUM/A1 MIS (12:32)
[2017-11-29] MEDS: cefTRIAXone INJ 2,000 MG in SODIUM CHLORIDE 0.9% INJ 100 ML IV SCH (13:26)
[2017-11-29] MEDS: ALPRAZolam 0.25 MG TAB PO PRN (13:26)
[2017-11-29] MEDS: traMADol HCL 50 MG TAB PO PRN (13:26)
== END 2017-11-29 14:39 | DRG 870 ==
LOC: NEPE 22:40 → NEDA 10-19 00:41 → HCVI 10-19 03:20 → HIME 10-25 18:05 → N04B 10-27 23:57
PROVIDERS: ADMIT Hospitalist; ATTEND Hospitalist
PROC: 5A1955Z Respiratory Ventilation, Greater than 96 Consecutive Hours (ICD-10-PCS; principal; 2017-10-19)
PROC: 5A12012 Performance of Cardiac Output, Single, Manual (ICD-10-PCS; 2017-10-19)
PROC: 0BH17EZ Insertion of Endotracheal Airway into Trachea, Via Natural or Artificial Opening (ICD-10-PCS; 2017-10-19)
PROC: 06HM33Z Insertion of Infusion Device into Right Femoral Vein, Percutaneous Approach (ICD-10-PCS; 2017-10-19)
PROC: 5A2204Z Restoration of Cardiac Rhythm, Single (ICD-10-PCS; 2017-10-19)
PROC: 0DH67UZ Insertion of Feeding Device into Stomach, Via Natural or Artificial Opening (ICD-10-PCS; 2017-10-19)
PROC: 0T9B70Z Drainage of Bladder with Drainage Device, Via Natural or Artificial Opening (ICD-10-PCS; 2017-10-19)
PROC: 03HY32Z Insertion of Monitoring Device into Upper Artery, Percutaneous Approach (ICD-10-PCS; 2017-10-20)
PROC: 4A133B1 Monitoring of Arterial Pressure, Peripheral, Percutaneous Approach (ICD-10-PCS; 2017-10-20)
PROC: 4A133J1 Monitoring of Arterial Pulse, Peripheral, Percutaneous Approach (ICD-10-PCS; 2017-10-20)
PROC: 009U3ZX Drainage of Spinal Canal, Percutaneous Approach, Diagnostic (ICD-10-PCS; 2017-10-24)
PROC: 30233N1 Transfusion of Nonautologous Red Blood Cells into Peripheral Vein, Percutaneous Approach (ICD-10-PCS; 2017-10-27)
PROC: B246ZZ4 Ultrasonography of Right and Left Heart, Transesophageal (ICD-10-PCS; 2017-10-31)
PROC: 0BDG8ZX Extraction of Left Upper Lung Lobe, Via Natural or Artificial Opening Endoscopic, Diagnostic (ICD-10-PCS; 2017-11-07)
DX: A41.9 Sepsis, unspecified organism (principal); I49.01 Ventricular fibrillation; K72.00 Acute and subacute hepatic failure without coma; J96.01 Acute respiratory failure with hypoxia; N17.0 Acute kidney failure with tubular necrosis; J96.02 Acute respiratory failure with hypercapnia; I33.0 Acute and subacute infective endocarditis; G92 Toxic encephalopathy; E11.10 Type 2 diabetes mellitus with ketoacidosis without coma; M62.82 Rhabdomyolysis; E87.1 Hypo-osmolality and hyponatremia; E87.4 Mixed disorder of acid-base balance; I47.2 Ventricular tachycardia; E87.0 Hyperosmolality and hypernatremia; I82.411 Acute embolism and thrombosis of right femoral vein; E88.09 Other disorders of plasma-protein metabolism, not elsewhere classified; R65.20 Severe sepsis without septic shock; I10 Essential (primary) hypertension; F31.9 Bipolar disorder, unspecified; I25.10 Atherosclerotic heart disease of native coronary artery without angina pectoris; E86.0 Dehydration; E83.39 Other disorders of phosphorus metabolism; E87.6 Hypokalemia; E83.41 Hypermagnesemia; Z68.32 Body mass index [BMI] 32.0-32.9, adult; Z91.14 Patient's other noncompliance with medication regimen; Z18.89 Other specified retained foreign body fragments; Z83.3 Family history of diabetes mellitus; Z82.49 Family history of ischemic heart disease and other diseases of the circulatory system; Z51.5 Encounter for palliative care; G89.29 Other chronic pain; Z91.19 Patient's noncompliance with other medical treatment and regimen; Z87.891 Personal history of nicotine dependence; F43.10 Post-traumatic stress disorder, unspecified; R19.7 Diarrhea, unspecified; N40.0 Benign prostatic hyperplasia without lower urinary tract symptoms; R91.8 Other nonspecific abnormal finding of lung field; B35.6 Tinea cruris; I08.0 Rheumatic disorders of both mitral and aortic valves; Z78.1 Physical restraint status; G47.00 Insomnia, unspecified; E83.51 Hypocalcemia; D47.3 Essential (hemorrhagic) thrombocythemia; D57.3 Sickle-cell trait; D50.9 Iron deficiency anemia, unspecified; K76.9 Liver disease, unspecified; D73.9 Disease of spleen, unspecified; E11.40 Type 2 diabetes mellitus with diabetic neuropathy, unspecified
CPT/HCPCS: 31500; 31623; 36430; 36556; 36569; 36600; 36620; 70450; 70551; 71045; 71046; 71250; 74176; 74183; 76705; 76775; 76937; 80048; 80053; 80061; 80074; 80164; 80202; 80307; 81001; 81003; 82010; 82088; 82103; 82105; 82140; 82272; 82390; 82533; 82550; 82552; 82565; 82570; 82607; 82668; 82728; 82746; 82800; 82805; 82945; 82947; 82948; 83010; 83020; 83021; 83036; 83520; 83540; 83550; 83605; 83615; 83735; 83880; 83930; 84100; 84132; 84133; 84145; 84155; 84157; 84165; 84207; 84295; 84300; 84425; 84439; 84443; 85007; 85014; 85018; 85025; 85027; 85041; 85044; 85384; 85610; 85652; 85730; 86038; 86140; 86255; 86403; 86430; 86592; 86611; 86638; 86651; 86652; 86653; 86654; 86850; 86880; 86900; 86901; 86920; 87015; 87040; 87070; 87102; 87116; 87205; 87206; 87252; 87389; 87449; 87493; 87497; 87529; 87799; 87804; 88112; 88305; 88307; 89051; 93005; 93306; 93312; 93320; 93325; 93971; 94002; 94003; 94150; 94640; 94664; 94667; 94668; 95819; 96365; 96368; 96375; 96376; A9579; C9113; G0475; J0131; J0330; J0610; J0692; J0696; J1205; J1642; J1650; J1815; J1817; J1885; J1940; J2060; J2250; J2270; J2370; J3010; J3370; J3475; J3480; J7030; J7040; J7050; J7060; J7120; J7512; J7613; P9016; Q9963

== ENCOUNTER 2018-03-27 17:48 | Inpatient (IN) ==
[2018-03-27 21:36] LABS: Baso # (Auto) 0.1 th/mm3 (0.0-0.2); Baso % (Auto) 1.2 % (0.0-2.0); Eos # (Auto) 0.6 th/mm3 (0.0-0.4); Eos % (Auto) 4.9 % (0.0-4.0); Hematocrit 46.4 % (39.0-51.0); Hemoglobin 15.8 gm/dL (13.0-17.0); Lymph # (Auto) 4.2 th/mm3 (1.0-4.8); Lymph % (Auto) 35.3 % (9.0-44.0); Mean Corpuscular Hemoglobin 28.4 pg (27.0-34.0); Mean Corpuscular Volume 83.4 fL (80.0-100.0); Mono # (Auto) 1.2 th/mm3 (0.0-0.9); Mono % (Auto) 9.6 % (0.0-8.0); Neut # (Auto) 5.9 th/mm3 (1.8-7.7); Platelet Count 257 th/mm3 (150-450); Red Blood Count 5.56 mil/mm3 (4.50-5.90); Red Cell Distribution Width 14.3 % (11.6-17.2)
[2018-03-27 21:49] LABS: Albumin 4.1 g/dL (3.4-5.0); Anion Gap 7 meq/L (5-15); Aspartate Aminotransferase 31 U/L (15-37); Blood Urea Nitrogen 11 mg/dL (7-18); Calcium 8.8 mg/dL (8.5-10.1); Carbon Dioxide 22.8 meq/L (21.0-32.0); Chloride 108 meq/L (98-107); Glomerular Filtration Rate Greater Than 89 mL/min (>89); Glucose,Random 83 mg/dL (74-106); Magnesium 2.1 mg/dL (1.5-2.5); Potassium 4.2 meq/L (3.5-5.1); Sodium 138 meq/L (136-145)
[2018-03-27 21:50] LABS: Alanine Aminotransferase 42 U/L (12-78)
[2018-03-27 21:59] LABS: Alkaline Phosphatase 75 U/L (45-117); Total Protein 7.8 g/dL (6.4-8.2)
--- NOTE | 2018-03-27 22:17 | ED ---
HPI General Chief complaint: Psychiatric Symptoms Stated complaint: Psych Kelly/Forrest Jacob transfer Time Seen by Provider: 03/27/18 20:34 History of Present Illness HPI narrative: Patient is very odd, when asked where he is he states "386" referring to our area code. He is able to tell me he is at [facility]. Patient is a 42-year-old male presents emergency department for evaluation of Yarbrough act. Patient is quite odd and just prior to my examination and history of the patient he defecated and urinated all over his examination room. Is fairly labile, initially flat and then hyperactive and then back to flat. According to the Yarbrough act "the reporting green party advised that a black male was running around the property naked. Upon arrival he made contact with the patient. The patient automatically began performing positions. After identifying himself as "Geovani" the patient advised that his name was not Geovani it was "[id number]." The patient advised that the number was his veterans number. The patient continued by saying that he was a clone..." Related Data Home Medications Medication Instructions Recorded Confirmed No Known Home Medications 03/27/18 03/27/18 Allergies Allergy/AdvReac Type Severity Reaction Status Date / Time No Known Allergies Allergy Verified 03/27/18 18:00 Review of Systems ROS Unobtainable ROS Unobtainable: unobtainable due to mental condition PMFSH Medical History Medical History Patient denies medical problems (Acute) Surgical History Surgical History No history of previous surgery (Acute) Social History Social History Substance History: No History of Abuse Second Hand Smoke Exposure: Yes Smoking Status: Never smoker Tobacco Type: Cigarettes and Smokeless Tobacco How Often Do You Have a Drink Containing Alcohol: Never Recent Travel in [facility] within the Last 8 Weeks: No Recent Out of Country Travel within the Last 8 Weeks: No Immunization History Tetanus Immunization: Unsure Exam Narrative Exam Narrative: GENERAL: Well-developed well-nourished, unkempt, streaked feces in his bilateral lower extremities. SKIN: Focused skin assessment warm/dry. No rashes no wound seen on his person. HEAD: Atraumatic. Normocephalic. EYES: Pupils equal and round. No scleral icterus. No injection or drainage. ENT: No nasal bleeding or discharge. Mucous membranes pink and moist. NECK: Trachea midline. No JVD. CARDIOVASCULAR: Regular rate and rhythm. No murmur appreciated. RESPIRATORY: No accessory muscle use. Clear to auscultation. Breath sounds equal bilaterally. GASTROINTESTINAL: Abdomen soft, non-tender, nondistended. Hepatic and splenic margins not palpable. MUSCULOSKELETAL: No obvious deformities. No clubbing. No cyanosis. No edema. NEUROLOGICAL: Awake and alert. No obvious cranial nerve deficits. Motor grossly within normal limits. Normal speech. PSYCHIATRIC: Patient has a labile affect, very odd behavior. Tangential and nearly flight of ideas. His eyes are wide open he does not seem to blink while he looks at me. Denies audiovisual hallucinations or suicidal homicidal ideation. States he wants to be released. When asked where he is he states [address] then [place] and then [place]. Certainly he is delusional. Course Initial Documented Vital Signs Temperature 98.7 F 03/27/18 18:01 Pulse Rate 89 03/27/18 18:01 Respiratory Rate 18 03/27/18 18:01 Blood Pressure 149/87 H 03/27/18 18:01 Pulse Oximetry 99 03/27/18 18:01 Last Documented Vital Signs Temperature 98.1 F 03/28/18 11:55 Pulse Rate 61 03/28/18 11:55 Respiratory Rate 17 03/28/18 11:55 Blood Pressure 137/81 03/28/18 11:55 Pulse Oximetry 100 03/28/18 11:55 Medical Decision Making MDM Narrative Medical decision making narrative: Patient room to the emergency department, he was initially taken to [facility] and then brought here as she is insulin-dependent diabetic and out of their scope of practice. He states he is hungry, of added a sliding scale insulin and a diet. I reviewed his labs and there is nothing that a CBC or CMP would warrant further workup of this patient. He is medically cleared for psychiatric evaluation. If admitted and I have a strong suspicion he will be would consider medicine consult for management of his diabetes. Medical Screen Exam Complete: Yes Emergency Medical Condition: Yes Lab Data Result diagrams: 03/27/18 21:15 03/27/18 21:15 Lab Results 03/27/18 03/27/18 Range/Units 21:15 21:15 WBC 12.0 H (4.0-11.0) th/mm3 RBC 5.56 (4.50-5.90) mil/mm3 Hgb 15.8 (13.0-17.0) gm/dL Hct 46.4 (39.0-51.0) % MCV 83.4 (80.0-100.0) fL MCH 28.4 (27.0-34.0) pg MCHC 34.0 (32.0-36.0) % RDW 14.3 (11.6-17.2) % Plt Count 257 (150-450) th/mm3 MPV 9.0 (7.0-11.0) fL Neut % (Auto) 49.0 (16.0-70.0) % Lymph % (Auto) 35.3 (9.0-44.0) % [place] % (Auto) 9.6 H (0.0-8.0) % Eos % (Auto) 4.9 H (0.0-4.0) % Baso % (Auto) 1.2 (0.0-2.0) % Neut # (Auto) 5.9 (1.8-7.7) th/mm3 Lymph # (Auto) 4.2 (1.0-4.8) th/mm3 [place] # (Auto) 1.2 H (0.0-0.9) th/mm3 Eos # (Auto) 0.6 H (0.0-0.4) th/mm3 Baso # (Auto) 0.1 (0.0-0.2) th/mm3 WBC Differential . Differential Comment Auto diff final Sodium 138 (136-145) meq/L Potassium 4.2 (3.5-5.1) meq/L Chloride 108 H (98-107) meq/L Carbon Dioxide 22.8 (21.0-32.0) meq/L Anion Gap 7 (5-15) meq/L BUN 11 (7-18) mg/dL Creatinine 0.74 (0.60-1.30) mg/dL Estimated GFR Greater than 89 (>89) mL/min Random Glucose 83 (74-106) mg/dL Calcium 8.8 (8.5-10.1) mg/dL Magnesium 2.1 (1.5-2.5) mg/dL Total Bilirubin 1.2 H (0.2-1.0) mg/dL AST 31 (15-37) U/L ALT 42 (12-78) U/L Alkaline Phosphatase 75 (45-117) U/L Total Protein 7.8 (6.4-8.2) g/dL Albumin 4.1 (3.4-5.0) g/dL TSH 1.010 (0.358-3.740) uIU/mL Serum Alcohol Less than 3 (0-5) mg/dL Discharge Plan Discharge Disposition Patient Disposition: 30 Still Patient Discharge Condition Condition: Stable Discharge Details Diagnosis: Unspecified psychosis Physicians Team ED Provider: Leland Avila Primary Care Provider: UNKNOWN, Attending Provider: Bhavin Blair Other Providers: Huey Gage Discharge Interventions Interventions: ED Discharge Assessment Last Done: 03/28/18 10:01 Vital Signs Last Done: 03/28/18 04:23 Status ED Status: Left Department Discharge Information Discharge Date/Time: 03/28/18 10:01
[2018-03-28] MEDS ORDERED: Aluminum/Magnesium/Simethacone Susp 30 ML UDC PO PRN (08:27)
[2018-03-28] MEDS ORDERED: Bisacodyl 10 MG Supp RECTAL PRN (08:27)
[2018-03-28] MEDS ORDERED: LORazepam 1 MG Tablet PO PRN (08:27)
[2018-03-28] MEDS ORDERED: Haloperidol Inj 5 MG/ML Ampul ONE (08:36)
[2018-03-28] MEDS: Haloperidol Inj 5 MG/ML Ampul IM STA ×2 (08:45→09:39)
[2018-03-28] MEDS ORDERED: Haloperidol Inj 5 MG/ML Ampul IV.PUSH PRN (09:00)
--- NOTE | 2018-03-28 11:57 | P.HPPSY ---
Provisional Diagnosis Admission Date: March 28, 2018 09:05 Maize I.: Unspecified psychosis Competence Certification of Person's Competence To Provide Express and Informed Consent I have personally examined Geovani Palomo JR, a person being served at [facility] on, March 28, 2018 1143. Express and informed consent means consent voluntarily given in writing, by a competent person, after sufficient explanation and disclosure of the subject matter involved to enable the person to make a knowing and willful decision without any element of force, fraud, deceit, duress, or other form of constraint or coercion. This person is 18 years of age or older, is not now known to be incompetent to consent to treatment with a guardian advocate, and does not have a health care surrogate or proxy currently making medical treatment decisions. I have found this person to be one of the following: [] Competent to provide express and informed consent, as defined above, for voluntary admission to this facility and is competent to provide express and informed consent for treatment. He/she has the consistent capacity to make well reasoned, willful, and knowing decisions concerning his or her medical or mental health treatment. The person fully and consistently understands the purpose of the admission for examination/placement and is fully capable of personally exercising all rights assured under [place] [] Incompetent to provide express and informed consent to voluntary admission, and this is incompetent to provide express and informed consent to treatment. The person must be transferred to involuntary status and a petition for a guardian advocate filed with the Circuit Court. [x] Refusing to provide express and informed consent to voluntary admission but is competent to provide express and informed consent for treatment. The person must be discharged or transferred to involuntary status. Form shall be completed within 24 hours of a person's arrival at the receiving facility and filed in the clinical record of each person: 1. Admitted on a voluntary basis 2. Permitted to provide express and informed consent to his/her own treatment 3. Allowed to transfer from involuntary to voluntary status 4. Prior to permitting a person to consent to his or her own treatment after having been previously found incompetent to consent to treatment. History of Present Illness Capacity: Lacks capacity History of Present Illness: The patient is a 42-year-old -[place]ian man, homeless, apparently is a , single, with unknown psychiatric history, or suicide attempt, first time in the department of psychiatry at [facility], reported medical history diabetes, who presents emergency department for evaluation of Yarbrough act, no informants reported the patient was acting very bizarre in the street, holding a postal in the middle of the street, talking to himself, playing and no answering any question appropriately. In the ER the patient has been very intrusive, talking to himself, responding to internal stimuli, no redirectable. On the initial medical ER evaluation yesterday he was described as quite odd and just prior to the examination and history he was defecated and urinated all over his examination room. On the psychiatric evaluation today the patient is irritable and oppositional. Yarbrough act also says "the reporting alliance party advised that a black male was running around the property naked. Upon arrival he made contact with the patient. The patient automatically began performing positions. After identifying himself as "Geovani" the patient advised that his name was not Geovani it was "[id number]." The patient advised that the number was his veterans number. The patient continued by saying that he was a clone..." when asked where he is he states "386" referring to our area code. In the J pod, the patient becomes quite verbally hostile, disorganized, unpredictable, and unable to follow verbal direction and had to be medicated with Haldol 5 mg and Ativan 2 mg IM to calm down. PPHx: Unknown psychiatric history, first time at [facility] PMHx: Diabetes Substance Hx: He denies the use of illegal drugs or alcohol Social Hx: He says that he is from [facility], homeless, unemployed, Family HX: Unknown family psychiatric - Inpatient Certification I certify that the inpatient services were ordered in accordance with Medicare regulations governing the order. This includes certification that hospital inpatient services are reasonable and necessary and in the case of services not specified as inpatient-only under 42 CFR 419.22(n), that they are appropriately provided as inpatient services in accordance to with the 2-midnight benchmark under 43 CFR 412.3(e) I certify that inpatient psychiatric hospital services are medically necessary. Evaluation and treatment and/or diagnostic testing are expected to improve the patient's condition. The patient needs on a daily basis, active treatment furnished directly by or requiring the supervision of inpatient psychiatric facility personnel. Estimated Total Length of Stay (Days): 7 Plans for Post Hospital Care: Home Review of Systems All other systems reviewed negative except as stated in HPI Psychiatric: Reports confusion, Reports irritability, Reports paranoia, Reports sensing things others do not sense, Reports tactile hallucinations PMFSH - History History Provided By: Patient - Medical History Medical History: Medical History (Last Updated 03/27/18 @ 18:02 by Marilyn Sewell) Patient denies medical problems - Surgical History Surgical History: Surgical History (Last Updated 03/27/18 @ 18:02 by Marilyn Sewell) No history of previous surgery - Tobacco History Second Hand Smoke Exposure: Yes Smoking Status: Never smoker - Alcohol History How Often Do You Have a Drink Containing Alcohol: Never - Substance Use History Substance History: No History of Abuse - Travel History Recent Travel in the [place] Within the Last 8 Weeks: No Recent Travel Out of the Country Within the Last 8 Weeks: No - Immunization History Tetanus Immunization: Unsure Medications and Allergies Active Medications: Active Medications Al Hydrox/Mg Hydrox/Simethicone (Mag-Al Plus Susp Liq) 30 ml PO Q6H PRN PRN Reason: DYSPEPSIA Al Hydroxide/Mg Hydroxide (Milk Of Magnesia Liq) 30 ml PO Q12H PRN PRN Reason: Mild Constipation Bisacodyl (Dulcolax Supp) 10 mg RECTAL DAILY PRN PRN Reason: SEVERE CONSITIPATION Flumazenil (Romazecon Inj) 0.2 mg IV.PUSH Q1M PRN PRN Reason: OVERSEDATION Haloperidol Lactate (Haldol Inj) 1 mg IV.PUSH Q15M PRN PRN Reason: for severe agitation Lactulose (Lactulose Liq) 30 ml PO DAILY PRN PRN Reason: SEVERE CONSITIPATION Lorazepam (Ativan) 2 mg PO Q2H PRN PRN Reason: for CIWA 11-14 Lorazepam (Ativan Inj) 2 mg IV.PUSH Q2H PRN PRN Reason: for CIWA 11-14 Lorazepam (Ativan Inj) 2 mg IV.PUSH Q1H PRN PRN Reason: for CIWA 15-20 Lorazepam (Ativan Inj) 2 mg IV.PUSH Q15M PRN PRN Reason: for CIWA > 20 Lorazepam (Ativan) 1 mg PO Q4H PRN PRN Reason: for CIWA 8-10 Lorazepam (Ativan Inj) 1 mg IV.PUSH Q4H PRN PRN Reason: for CIWA 8-10 Senna/Docusate Sodium (Candace-Colace) 1 tab PO BID BIENVENIDO Sennosides (Senokot) 17.2 mg PO Q12H PRN PRN Reason: Moderate Constipation Allergies Allergy/AdvReac Type Severity Reaction Status Date / Time No Known Allergies Allergy Verified 03/27/18 18:00 Home Medications Medication Instructions Recorded Confirmed Type No Known Home Medications 03/27/18 03/27/18 History Results - Labs CBC & Chem 7: 03/27/18 21:15 03/27/18 21:15 Labs: Laboratory Results - last 24 hr 03/27/18 03/27/18 21:15 21:15 WBC 12.0 H RBC 5.56 Hgb 15.8 Hct 46.4 MCV 83.4 MCH 28.4 MCHC 34.0 RDW 14.3 Plt Count 257 MPV 9.0 Neut % (Auto) 49.0 Lymph % (Auto) 35.3 [place] % (Auto) 9.6 H Eos % (Auto) 4.9 H Baso % (Auto) 1.2 Neut # (Auto) 5.9 Lymph # (Auto) 4.2 [place] # (Auto) 1.2 H Eos # (Auto) 0.6 H Baso # (Auto) 0.1 WBC Differential . Differential Comment Auto diff final Sodium 138 Potassium 4.2 Chloride 108 H Carbon Dioxide 22.8 Anion Gap 7 BUN 11 Creatinine 0.74 Estimated GFR Greater than 89 Random Glucose 83 Calcium 8.8 Magnesium 2.1 Total Bilirubin 1.2 H AST 31 ALT 42 Alkaline Phosphatase 75 Total Protein 7.8 Albumin 4.1 TSH 1.010 Serum Alcohol Less than 3 Exam Vital signs: Vital Signs 03/27/18 18:01 03/27/18 21:17 03/28/18 01:20 Temperature 98.7 F Pulse Rate 89 84 90 Respiratory Rate 18 18 16 Blood Pressure 149/87 H 166/85 H 136/79 Pulse Oximetry 99 98 98 03/28/18 04:23 Temperature Pulse Rate 73 Respiratory Rate 16 Blood Pressure 142/86 H Pulse Oximetry 99 Intake & Output 03/27/18 03/28/18 03/28/18 18:59 06:59 18:59 Weight 81.647 kg Narrative: Patient is quite hyperactive, but no tremors, no EPS, no catatonia present Mental Status Examination Appearance: Disheveled, Malodorous Consciousness: Alert Orientation: x4 Motor Activity: Normal gait Speech: Unremarkable Language: Adequate Fund of Knowledge: Adequate Attention and Concentration: Adequate Memory: Unremarkable Mood: Angry Affect: Irritable, Labile Thought Process & Associations: Loose associations, Circumstantial Thought Content: Bizarre thinking, Hallucinations Hallucination Type: None Delusion Type: Bizarre, Paranoid Suicidal Ideation: No Suicidal Plan: No Suicidal Intention: No Homicidal Ideation: No Homicidal Plan: No Homicidal Intention: No Insight: Poor Judgment: Poor Assessment and Plan - Assessment (1) Unspecified psychosis Code(s): F29 - Unspecified psychosis not due to a substance or known physiological condition Status: Acute - Plan Plan: On my psychiatric evaluation today the patient presents irritable, oppositional , very disorganized, tangential, with sage loosening of associations and unable to follow verbal de-escalation techniques. The patient has been talking to himself, crying/praying, holding very odd positions in the J pod, at some point he has been threatening and very unpredictable to the point that he had to be chemically restrained with Haldol 5 mg IM and Ativan 2 mg IM in order to calm him down. The patient was described by the police and the Yarbrough act as very disorganized, no making any sense, very destructive in the community. We did not have any information about his psychiatric history, he is new for [facility], but is very clear to me that the patient is unable to take care of himself, and is a threat to self and others given his level of psychosis and lack of reality contact. Is unclear if this presentation is secondary to a primary psychosis or is drug related. Patient has no being able to give us urine yet. He will be admitted in psychiatry for stabilization and safety. Transfer to 27. I will start Haldol 5 mg twice daily. Assault precaution. Will consult psychiatry for second opinion. Justification for Continued Inpatient Stay: Needs admission for stabilization.
[2018-03-28] MEDS: Senna/Docusate Sodium 8.6/50 MG Tablet PO SCH (20:03)
[2018-03-29] MEDS: Senna/Docusate Sodium 8.6/50 MG Tablet PO SCH (08:55)
--- NOTE | 2018-03-29 09:56 | P.CONPSY ---
Provisional Diagnosis Admission Date: March 28, 2018 09:05 [place] I.: 1. Unspecified psychosis Rule-out decompensation of primary psychotic illness or mood disorder with psychotic features Rule-out substance-induced psychotic disorder [place] II.: Deferred History of Present Illness Service: Psychiatry Consult date: 03/29/18 Requesting Physician: Bhavin Blair Reason for Consult: Second opinion for involuntary psychiatric hospitalization Primary Care Provider: UNKNOWN History of Present Illness: From Dr. Blair's H&P: The patient is a 42-year-old -[place] man, homeless, apparently is a , single, with unknown psychiatric history, or suicide attempt, first time in the department of psychiatry at [facility], reported medical history diabetes, who presents emergency department for evaluation of Yarbrough act, no informants reported the patient was acting very bizarre in the street, holding a postal in the middle of the street, talking to himself, playing and no answering any question appropriately. In the ER the patient has been very intrusive, talking to himself, responding to internal stimuli, no redirectable. On the initial medical ER evaluation yesterday he was described as quite odd and just prior to the examination and history he was defecated and urinated all over his examination room. On the psychiatric evaluation today the patient is irritable and oppositional. Yarbrough act also says "the reporting democrat advised that a black male was running around the property naked. Upon arrival he made contact with the patient. The patient automatically began performing positions. After identifying himself as "Geovani" the patient advised that his name was not Geovani it was "[id number]." The patient advised that the number was his veterans number. The patient continued by saying that he was a clone..." when asked where he is he states "[id number]" referring to our area code. In the J pod, the patient becomes quite verbally hostile, disorganized, unpredictable, and unable to follow verbal direction and had to be medicated with Haldol 5 mg and Ativan 2 mg IM to calm down. PPHx: Unknown psychiatric history, first time at [facility] PMHx: Diabetes Substance Hx: He denies the use of illegal drugs or alcohol Social Hx: He says that he is from [facility], homeless, unemployed, Family HX: Unknown family psychiatric On my exam today, 03/29: Patient seen and examined with counselor and nurse. Chart reviewed. Case discussed with counselor and nurse. On my examination today the patient presents as extremely vigilant and paranoid. He stands all the way across the room when we try to speak with him, as if trying to put maximal distance between us. His thought process is quite disorganized. He tells me "open the door and let me walk out and go to the [facility] to speak to the unit receptionist desk. Everythin else needs to stay sealed, gentlemen. Sacred seals." He tells me that he needs to "reset the keerosk system. Whoever applies, reapplies." When I try to ask him further questions he replies "VA system 1. Passport card 1. Waste management 1." He appears frankly internally stimulated. He is irritable. When I ask about suicidal or homicidal ideation, the patient replies "why would I?" Psychiatric interview is quite limited because of patient's degree of psychiatric impairment. I am unable to obtain any meaningful past psychiatric, family, chemical dependency or social history from the patient on account of his degree of psychiatric impairment. He denies any physical complaints and appears to be in no physical distress. Following my departure from the unit, I was contacted by the nurse to indicate that the patient was becoming increasingly agitated and threatening. I have ordered the patient medicated with Haldol, Ativan and Cogentin IM ETO. Given the patient's degree of psychiatric impairment, I obtained collateral information from the [facility], nurse Amy. She reports that patient follows with Dr. Duong joseph and carries diagnoses of PTSD, BPAD and also has a history of alcohol use issues. He was last seen in the clinic at the end of January. He was reportedly homeless and on probation at that time. He was reportedly 5 months sober from alcohol. He was endorsing AVH and tactile hallucinations at that visit. PMH includes DM, DVT, endocarditis and PNA. Med list as of that visit is as follows: Depakote 250mg BID Seroquel 25mg qHS BuSpar 10mg BID Prazosin 1mg qHS Hydroxyzine 10mg BID Hydralazine 50mg q8h Gabapentin 200mg BID Carvedilol 6.25mg BID Amlodipine 5mg daily Benzepril 10mg daily Insulin of uncertain dose, possibly sliding scale. I endeavored to reach both patient's father and patient's son for collateral and med consents at the numbers in the EMR and left generic VMs for both requesting a call back. Review of Systems unobtainable due to mental condition PMFSH - History History Provided By: Patient - Medical History Medical History: Medical History (Last Updated 03/27/18 @ 18:02 by Marilyn Sewell) Patient denies medical problems - Surgical History Surgical History: Surgical History (Last Updated 03/27/18 @ 18:02 by Marilyn Sewell) No history of previous surgery - Tobacco History Second Hand Smoke Exposure: Yes Tobacco Use In Past 30 Days: (UNKNOWN) Smoking Status: Never smoker Tobacco Type: Cigarettes, Smokeless Tobacco - Alcohol History How Often Do You Have a Drink Containing Alcohol: Never - Substance Use History Substance History: Unable to Obtain - Travel History Recent Travel in the [place] Within the Last 8 Weeks: No Recent Travel Out of the Country Within the Last 8 Weeks: No - Immunization History Tetanus Immunization: Unsure Medications and Allergies Active Medications: Active Medications Al Hydrox/Mg Hydrox/Simethicone (Mag-Al Plus Susp Liq) 30 ml PO Q6H PRN PRN Reason: DYSPEPSIA Al Hydroxide/Mg Hydroxide (Milk Of Magnesia Liq) 30 ml PO Q12H PRN PRN Reason: Mild Constipation Bisacodyl (Dulcolax Supp) 10 mg RECTAL DAILY PRN PRN Reason: SEVERE CONSITIPATION Flumazenil (Romazecon Inj) 0.2 mg IV.PUSH Q1M PRN PRN Reason: OVERSEDATION Haloperidol Lactate (Haldol Inj) 1 mg IV.PUSH Q15M PRN PRN Reason: for severe agitation Lactulose (Lactulose Liq) 30 ml PO DAILY PRN PRN Reason: SEVERE CONSITIPATION Lorazepam (Ativan) 2 mg PO Q2H PRN PRN Reason: for CIWA 11-14 Lorazepam (Ativan Inj) 2 mg IV.PUSH Q2H PRN PRN Reason: for CIWA 11-14 Lorazepam (Ativan Inj) 2 mg IV.PUSH Q1H PRN PRN Reason: for CIWA 15-20 Lorazepam (Ativan Inj) 2 mg IV.PUSH Q15M PRN PRN Reason: for CIWA > 20 Lorazepam (Ativan) 1 mg PO Q4H PRN PRN Reason: for CIWA 8-10 Lorazepam (Ativan Inj) 1 mg IV.PUSH Q4H PRN PRN Reason: for CIWA 8-10 Senna/Docusate Sodium (Candace-Colace) 1 tab PO BID BIENVENIDO Last Admin: 03/29/18 08:55 Dose: 1 tab Sennosides (Senokot) 17.2 mg PO Q12H PRN PRN Reason: Moderate Constipation Allergies Allergy/AdvReac Type Severity Reaction Status Date / Time No Known Allergies Allergy Verified 03/27/18 18:00 Home Medications Medication Instructions Recorded Confirmed Type No Known Home Medications 03/27/18 03/27/18 History Exam Vital signs: Vital Signs 03/28/18 11:55 03/29/18 06:18 Temperature 98.1 F 97.8 F Pulse Rate 61 94 H Respiratory Rate 17 18 Blood Pressure 137/81 153/89 H Pulse Oximetry 100 98 Intake & Output 03/28/18 03/29/18 03/29/18 18:59 06:59 18:59 Weight 80 kg Other: Weight On Admission 80 kg Narrative: Physical examination was completed by ED provider. On my examination today, the patient appears to be in no acute physical distress. No signs of intoxication or withdrawal noted. Labs and vital signs reviewed: Laboratory Tests 03/27/18 03/27/18 21:15 21:15 WBC 12.0 H Hgb 15.8 Plt Count 257 Sodium 138 Potassium 4.2 Chloride 108 H Carbon Dioxide 22.8 BUN 11 Creatinine 0.74 Estimated GFR Greater than 89 AST 31 ALT 42 Alkaline Phosphatase 75 TSH 1.010 Serum Alcohol Less than 3 Mental Status Examination Appearance: Disheveled Consciousness: Alert, Vigilant Orientation: Person, Place (At least) Motor Activity: Normal gait, Other (No motor abnormalities noted) Speech: Unremarkable Language: Adequate Fund of Knowledge: Adequate Attention and Concentration: Adequate Memory: Unremarkable Mood: Oppositional, Irritable Affect: Irritable, Labile Thought Process & Associations: Disorganized Thought Content: Bizarre thinking, Hallucinations Hallucination Type: Other (Frankly internally stimulated) Delusion Type: Bizarre, Paranoid Suicidal Ideation: No Suicidal Plan: No Suicidal Intention: No Homicidal Ideation: No Homicidal Plan: No Homicidal Intention: No Insight: Poor Judgment: Poor Assessment and Plan - Assessment (1) Unspecified psychosis Code(s): F29 - Unspecified psychosis not due to a substance or known physiological condition Status: Acute - Plan Plan: Given the circumstances of the patient's presentation here, and his presentation on my examination today, I concur with Dr. Blair that the patient meets criteria for involuntary psychiatric hospitalization under the Yarbrough act. He is floridly psychotic and agitated. I have completed the second opinion paperwork. I will be assuming primary care of the case. Scheduled psychotropic medications are on hold for lack of anyone to provide consent. The patient is incapacitated to provide medication consent, and I have requested a healthcare surrogate and guardian advocate. I will resume general medical medications and consult the hospitalist for further management. I have started Accu-Cheks and sliding scale insulin. I will check a CBC to follow-up on mild leukocytosis. I will check an EKG for QTc in anticipation of scheduled antipsychotic therapy being required. I will check an extended urine toxicology screen, if the urine sample can be safely obtained from the patient. Continue to monitor on the high acuity unit. Continue other medications and care as ordered. Justification for Continued Inpatient Stay: Impairment in reality construction. High risk for decompensation in less restrictive environment. Discharge Planning: Pending psychiatric stabilization. Request Healthcare Surrogate/Guardian Advocate?: Yes
[2018-03-29] MEDS ORDERED: Haloperidol Inj 5 MG/ML Ampul IM STA (10:16)
[2018-03-29] MEDS ORDERED: Haloperidol Inj 5 MG/ML Ampul ONE (10:20)
[2018-03-29 10:21] LABS: Anion Gap 8 meq/L (5-15); Blood Urea Nitrogen 13 mg/dL (7-18); Calcium 8.9 mg/dL (8.5-10.1); Carbon Dioxide 25.1 meq/L (21.0-32.0); Chloride 107 meq/L (98-107); Glomerular Filtration Rate Greater Than 89 mL/min (>89); Glucose,Random 123 mg/dL (74-106); Potassium 4.1 meq/L (3.5-5.1); Sodium 140 meq/L (136-145)
[2018-03-29 10:22] LABS: Cholesterol 160 mg/dL (120-200)
[2018-03-29 10:24] LABS: Chol/HDL Ratio 3.25 Ratio; HDL Cholesterol 49.2 mg/dL (40.0-60.0); LDL Cholesterol,Calculated 88 mg/dL (0-99); Triglycerides 116 mg/dL (42-150)
[2018-03-29] MEDS ORDERED: Dextrose 50% in Water 50 ML Vial IV.PUSH PRN (10:25)
[2018-03-29] MEDS ORDERED: Benztropine Inj 2 MG/2 ML Ampul IM STA (10:33)
[2018-03-29] MEDS ORDERED: Benztropine Inj 2 MG/2 ML Ampul ONE (10:34)
[2018-03-29] MEDS ORDERED: Insulin NovoLOG Aspart Correctional Sugar Inj SQ SCH (12:00)
[2018-03-29] MEDS ORDERED: LORazepam 1 MG Tablet PO PRN (14:59)
--- NOTE | 2018-03-29 15:43 | P.CON ---
History of Present Illness Reason for Consult: Medical management Primary Care Provider: UNKNOWN Chief Complaint: Medical management History of Present Illness: 42-year-old male for past medical history of depression, hypertension and admitted to inpatient psychiatry as a Yarbrough act; patient has been seen and evaluated in the break room. He is a man of very few words. However, patient is allowing me for a physical exam. Denies any chest pain, shortness of breath or GI bleed and states he does not belong here. Review of Systems unobtainable due to mental condition PMFSH - History History Provided By: Patient - Medical History Medical History: Medical History (Last Updated 03/27/18 @ 18:02 by Marilyn Sewell) Patient denies medical problems - Surgical History Surgical History: Surgical History (Last Updated 03/27/18 @ 18:02 by Marilyn Sewell) No history of previous surgery - Tobacco History Second Hand Smoke Exposure: Yes Tobacco Use In Past 30 Days: (UNKNOWN) Smoking Status: Never smoker Tobacco Type: Cigarettes, Smokeless Tobacco - Alcohol History How Often Do You Have a Drink Containing Alcohol: Never - Substance Use History Substance History: Unable to Obtain - Travel History Recent Travel in the [place] Within the Last 8 Weeks: No Recent Travel Out of the Country Within the Last 8 Weeks: No - Immunization History Tetanus Immunization: Unsure Medications and Allergies Active Medications: Active Medications Al Hydrox/Mg Hydrox/Simethicone (Mag-Al Plus Susp Liq) 30 ml PO Q6H PRN PRN Reason: DYSPEPSIA Al Hydroxide/Mg Hydroxide (Milk Of Magnesia Liq) 30 ml PO Q12H PRN PRN Reason: Mild Constipation Amlodipine Besylate (Norvasc) 5 mg PO DAILY BIENVENIDO Aripiprazole (Abilify) 5 mg PO BID BIENVENIDO Benztropine Mesylate (Cogentin) 1 mg PO Q12H PRN PRN Reason: EXTRA PYRAMIDAL SYMPTOMS Benztropine Mesylate (Cogentin Inj) 1 mg IM Q12HR PRN PRN Reason: EPS, unable to take PO Bisacodyl (Dulcolax Supp) 10 mg RECTAL DAILY PRN PRN Reason: SEVERE CONSITIPATION Carvedilol (Coreg) 6.25 mg PO BID BIENVENIDO Dextrose (D50w Vial) 50 ml IV.PUSH UNSCH PRN PRN Reason: PER HYPOGLYCEMIA PROTOCOL Divalproex Sodium (Depakote Dr) 500 mg PO BID [facility] Flumazenil (Romazecon Inj) 0.2 mg IV.PUSH Q1M PRN PRN Reason: OVERSEDATION Gabapentin (Neurontin) 200 mg PO TID [facility] Glucagon (Glucagon Inj) 1 mg OTHER PRN PRN PRN Reason: for Hypoglycemia Protocol Haloperidol Lactate (Haldol Inj) 1 mg IV.PUSH Q15M PRN PRN Reason: for severe agitation Haloperidol Lactate (Haldol Inj) 5 mg IM BID PRN PRN Reason: Refuses PO Abilify Hydralazine HCl (Apresoline) 50 mg PO Q8H [facility] Insulin Aspart (Novolog Insulin Correctional Sugar Inj) 0 unit SQ ACHS BIENVENIDO; Protocol Lactulose (Lactulose Liq) 30 ml PO DAILY PRN PRN Reason: SEVERE CONSITIPATION Lorazepam (Ativan) 2 mg PO Q2H PRN PRN Reason: for CIWA 11-14 Lorazepam (Ativan Inj) 2 mg IV.PUSH Q2H PRN PRN Reason: for CIWA 11-14 Lorazepam (Ativan Inj) 2 mg IV.PUSH Q1H PRN PRN Reason: for CIWA 15-20 Lorazepam (Ativan Inj) 2 mg IV.PUSH Q15M PRN PRN Reason: for CIWA > 20 Lorazepam (Ativan) 1 mg PO Q4H PRN PRN Reason: for CIWA 8-10 Lorazepam (Ativan Inj) 1 mg IV.PUSH Q4H PRN PRN Reason: for CIWA 8-10 Lorazepam (Ativan) 1 mg PO Q6H PRN PRN Reason: Anxiety Lorazepam (Ativan Inj) 1 mg IM Q6H PRN PRN Reason: Anxiety, unable to take PO Senna/Docusate Sodium (Candace-Colace) 1 tab PO BID [facility] Last Admin: 03/29/18 08:55 Dose: 1 tab Sennosides (Senokot) 17.2 mg PO Q12H PRN PRN Reason: Moderate Constipation Allergies Allergy/AdvReac Type Severity Reaction Status Date / Time No Known Allergies Allergy Verified 03/27/18 18:00 Home Medications Medication Instructions Recorded Confirmed Type No Known Home Medications 03/27/18 03/27/18 History Physical Exam Vital signs: Vital Signs 03/29/18 06:18 Temperature 97.8 F Pulse Rate 94 H Respiratory Rate 18 Blood Pressure 153/89 H Pulse Oximetry 98 Intake & Output 03/28/18 03/29/18 03/29/18 18:59 06:59 18:59 Weight 80 kg Other: Weight On Admission 80 kg Narrative: GENERAL: NAD SKIN: Warm and dry. HEAD: Atraumatic. Normocephalic. EYES: Pupils equal and round. No scleral icterus. No injection or drainage. ENT: No nasal bleeding or discharge. Mucous membranes pink and moist. NECK: Trachea midline. No JVD. CARDIOVASCULAR: Regular rate and rhythm. RESPIRATORY: No accessory muscle use. Clear to auscultation. Breath sounds equal bilaterally. GASTROINTESTINAL: Abdomen soft, non-tender, nondistended. Hepatic and splenic margins not palpable. MUSCULOSKELETAL: Extremities without clubbing, cyanosis, or edema. No obvious deformities. NEUROLOGICAL: Awake and alert. No obvious cranial nerve deficits. Motor grossly within normal limits. Five out of 5 muscle strength in the arms and legs. PSYCHIATRIC: flat affect; insight and judgment poor. Assessment and Plan - Plan 42-year-old man with Acute mood disorder Management per psychiatry Continue Yarbrough act Depression Management per psychiatry History of hypertension Resume lisinopril 20 mg twice daily as well as Amlodipine/Benazepril 03/23 1 tab daily DVT prophylaxis: Encourage ambulation Thank you for this consultation
[2018-03-29 16:28] LABS: Hemoglobin A1c 6.5 % (4.3-6.0)
[2018-03-29] MEDS: hydrALAZINE 50 MG Tablet PO SCH ×2 (16:33→18:18)
[2018-03-29] MEDS: Insulin NovoLOG Aspart Correctional Sugar Inj SQ SCH ×2 (16:51→21:32)
[2018-03-29] MEDS: Gabapentin 100 MG Capsule PO SCH ×2 (18:10→18:18)
[2018-03-29 19:21] LABS: Amphetamine Urine With Conf Neg (Neg); Benzodiazepine Urine With Conf Neg (Neg)
[2018-03-29] MEDS: Lisinopril 20 MG Tablet PO SCH (21:00)
[2018-03-29] MEDS ORDERED: Haloperidol Inj 5 MG/ML Ampul IM PRN (21:00)
[2018-03-29] MEDS ORDERED: Benztropine Inj 2 MG/2 ML Ampul IM PRN (21:00)
[2018-03-29] MEDS: Divalproex 500 MG DR Tablet PO SCH (21:24)
[2018-03-29] MEDS: ARIPiprazole 5 MG Tablet PO SCH (21:24)
[2018-03-29] MEDS: Carvedilol 6.25 MG Tablet PO SCH (21:25)
[2018-03-30] MEDS: hydrALAZINE 50 MG Tablet PO SCH ×3 (05:44→19:21)
[2018-03-30 07:39] LABS: Baso # (Auto) 0.1 th/mm3 (0.0-0.2); Baso % (Auto) 1.3 % (0.0-2.0); Eos # (Auto) 0.5 th/mm3 (0.0-0.4); Eos % (Auto) 5.3 % (0.0-4.0); Hemoglobin 15.6 gm/dL (13.0-17.0); Lymph # (Auto) 3.5 th/mm3 (1.0-4.8); Lymph % (Auto) 34.2 % (9.0-44.0); Mean Corpuscular Hemoglobin 28.7 pg (27.0-34.0); Mean Corpuscular Volume 84.4 fL (80.0-100.0); Mono # (Auto) 0.8 th/mm3 (0.0-0.9); Mono % (Auto) 8.1 % (0.0-8.0); Neut # (Auto) 5.2 th/mm3 (1.8-7.7); Neut % (Auto) 51.1 % (16.0-70.0); Platelet Count 296 th/mm3 (150-450); Red Blood Count 5.45 mil/mm3 (4.50-5.90); Red Cell Distribution Width 14.4 % (11.6-17.2); White Blood Count 10.3 th/mm3 (4.0-11.0)
[2018-03-30] MEDS: Insulin NovoLOG Aspart Correctional Sugar Inj SQ SCH ×2 (08:00→11:40)
--- NOTE | 2018-03-30 09:18 | P.PNPSY ---
Subjective Remarks: Patient seen and examined with nurse. Chart reviewed. Case discussed with nursing staff. On my examination today, the patient is more organized. He is oriented to person, month/year and location. He denies any SI or HI. Denies any AVH. His toxicology is positive for cocaine, but the patient adamantly denies any substance use. He remains guarded and paranoid. He tells me that medications are working "as well as expected" and he has no side effects from medications. No physical complaints. Vital Signs Temp Pulse Resp BP Pulse Ox 03/30/18 06:05 97.6 F 80 17 142/88 H 98 03/29/18 18:00 98.2 F 87 17 134/73 98 Laboratory Results - last 24 hr 03/29/18 03/29/18 03/29/18 09:09 09:09 16:41 WBC RBC Hgb Hct MCV MCH MCHC RDW Plt Count MPV Neut % (Auto) Lymph % (Auto) [place] % (Auto) Eos % (Auto) Baso % (Auto) Neut # (Auto) Lymph # (Auto) [place] # (Auto) Eos # (Auto) Baso # (Auto) WBC Differential Differential Comment Sodium 140 Potassium 4.1 Chloride 107 Carbon Dioxide 25.1 Anion Gap 8 BUN 13 Creatinine 0.67 Estimated GFR Greater than 89 POC Glucose 131 H Random Glucose 123 H Hemoglobin A1c 6.5 H Calcium 8.9 Triglycerides 116 Cholesterol 160 LDL Cholesterol, Calc 88 HDL Cholesterol 49.2 Cholesterol/HDL Ratio 3.25 Urine Opiates Screen Ur Barbiturates Screen Ur Amphetamine Screen U Benzodiazepines Scrn Urine Cocaine Screen U Cannabinoids Screen 03/29/18 03/29/18 03/30/18 18:00 21:30 06:17 WBC 10.3 RBC 5.45 Hgb 15.6 Hct 46.0 MCV 84.4 MCH 28.7 MCHC 34.0 RDW 14.4 Plt Count 296 MPV 9.0 Neut % (Auto) 51.1 Lymph % (Auto) 34.2 [place] % (Auto) 8.1 H Eos % (Auto) 5.3 H Baso % (Auto) 1.3 Neut # (Auto) 5.2 Lymph # (Auto) 3.5 [place] # (Auto) 0.8 Eos # (Auto) 0.5 H Baso # (Auto) 0.1 WBC Differential . Differential Comment Auto diff final Sodium Potassium Chloride Carbon Dioxide Anion Gap BUN Creatinine Estimated GFR POC Glucose 116 H Random Glucose Hemoglobin A1c Calcium Triglycerides Cholesterol LDL Cholesterol, Calc HDL Cholesterol Cholesterol/HDL Ratio Urine Opiates Screen Neg Ur Barbiturates Screen Neg Ur Amphetamine Screen Neg U Benzodiazepines Scrn Neg Urine Cocaine Screen Pos H U Cannabinoids Screen Neg 03/30/18 06:28 WBC RBC Hgb Hct MCV MCH MCHC RDW Plt Count MPV Neut % (Auto) Lymph % (Auto) [place] % (Auto) Eos % (Auto) Baso % (Auto) Neut # (Auto) Lymph # (Auto) [place] # (Auto) Eos # (Auto) Baso # (Auto) WBC Differential Differential Comment Sodium Potassium Chloride Carbon Dioxide Anion Gap BUN Creatinine Estimated GFR POC Glucose 109 Random Glucose Hemoglobin A1c Calcium Triglycerides Cholesterol LDL Cholesterol, Calc HDL Cholesterol Cholesterol/HDL Ratio Urine Opiates Screen Ur Barbiturates Screen Ur Amphetamine Screen U Benzodiazepines Scrn Urine Cocaine Screen U Cannabinoids Screen Labs reviewed. Leukocytosis resolved. Toxicology positive for cocaine. Review of Systems All other systems reviewed negative except as stated in HPI (Limitation: Psychosis) Mental Status Examination Appearance: Appropriate Consciousness: Alert, Vigilant Orientation: Person, Place, Date/Time Motor Activity: Normal gait, Other (No abnormal motor movements noted) Speech: Unremarkable Language: Adequate Fund of Knowledge: Adequate Attention and Concentration: Adequate Memory: Unremarkable Mood: Irritable (Mild) Affect: Irritable (Mild) Thought Process & Associations: Circumstantial Thought Content: Bizarre thinking, Delusional Hallucination Type: None Delusion Type: Paranoid Suicidal Ideation: No Suicidal Plan: No Suicidal Intention: No Homicidal Ideation: No Homicidal Plan: No Homicidal Intention: No Insight: Poor Judgment: Poor Assessment and Plan - Assessment (1) Unspecified psychosis Code(s): F29 - Unspecified psychosis not due to a substance or known physiological condition Status: Acute - Plan Plan: Patient improving with current psychotropics. Toxicological findings raise the specter of a substance-induced psychotic process, although the patient adamantly denies any substance use. I will continue doses of psychotropic medications as ordered for now. Could consider titration of Abilify tomorrow to target residual psychotic symptoms. Hospitalist input appreciated. Continue to monitor on the inpatient unit. Continue other medications and care as ordered. Justification for Continued Inpatient Stay: Impairment in reality construction. Risk for decompensation in less restrictive environment. Discharge Planning: Pending psychiatric stabilization. Request Healthcare Surrogate/Guardian Advocate?: Yes
[2018-03-30] MEDS: amLODIPine 5 MG Tablet PO SCH (09:30)
[2018-03-30] MEDS: Gabapentin 100 MG Capsule PO SCH ×4 (09:30→19:21)
[2018-03-30] MEDS: Lisinopril 20 MG Tablet PO SCH ×2 (09:30→20:38)
[2018-03-30] MEDS: Carvedilol 6.25 MG Tablet PO SCH ×2 (09:30→20:40)
[2018-03-30] MEDS: ARIPiprazole 5 MG Tablet PO SCH ×3 (09:30→21:13)
[2018-03-30] MEDS: Divalproex 500 MG DR Tablet PO SCH ×2 (09:58→20:39)
--- NOTE | 2018-03-30 15:12 | P.PN ---
Subjective Interval history: Patient is seen sitting in Courtyard. He tells me that he is feeling well with no new concerns or complaints. He would like to stop getting [id number] me that he no longer has diabetes and has not been taking any medication for diabetes. No chest pain or shortness of breath. No nausea vomiting or diarrhea. No fever or chills. Physical Exam Vital signs: Vital Signs 03/29/18 18:00 03/30/18 06:05 Temperature 98.2 F 97.6 F Pulse Rate 87 80 Respiratory Rate 17 17 Blood Pressure 134/73 142/88 H Pulse Oximetry 98 98 Narrative: GENERAL: Well-nourished, well-developed adult male in no obvious distress. SKIN: Warm and dry. HEAD: Atraumatic. Normocephalic. CARDIOVASCULAR: Regular rate and rhythm. RESPIRATORY: No accessory muscle use. Clear to auscultation. Breath sounds equal bilaterally. GASTROINTESTINAL: Abdomen soft, non-tender, non-distended. Positive bowel sounds. MUSCULOSKELETAL: Extremities without clubbing, cyanosis, or edema. No obvious deformities. NEUROLOGICAL: Awake and alert. No obvious cranial nerve deficits. Motor grossly within normal limits. Normal speech. Results - Labs CBC & Chem 7: 03/30/18 06:17 03/29/18 09:09 Laboratory Results - last 24 hr 03/29/18 03/29/18 03/29/18 09:09 16:41 18:00 WBC RBC Hgb Hct MCV MCH MCHC RDW Plt Count MPV Neut % (Auto) Lymph % (Auto) [place] % (Auto) Eos % (Auto) Baso % (Auto) Neut # (Auto) Lymph # (Auto) [place] # (Auto) Eos # (Auto) Baso # (Auto) WBC Differential Differential Comment POC Glucose 131 H Hemoglobin A1c 6.5 H Urine Opiates Screen Neg Ur Barbiturates Screen Neg Ur Amphetamine Screen Neg U Benzodiazepines Scrn Neg Urine Cocaine Screen Pos H U Cannabinoids Screen Neg 03/29/18 03/30/18 03/30/18 21:30 06:17 06:28 WBC 10.3 RBC 5.45 Hgb 15.6 Hct 46.0 MCV 84.4 MCH 28.7 MCHC 34.0 RDW 14.4 Plt Count 296 MPV 9.0 Neut % (Auto) 51.1 Lymph % (Auto) 34.2 [place] % (Auto) 8.1 H Eos % (Auto) 5.3 H Baso % (Auto) 1.3 Neut # (Auto) 5.2 Lymph # (Auto) 3.5 [place] # (Auto) 0.8 Eos # (Auto) 0.5 H Baso # (Auto) 0.1 WBC Differential . Differential Comment Auto diff final POC Glucose 116 H 109 Hemoglobin A1c Urine Opiates Screen Ur Barbiturates Screen Ur Amphetamine Screen U Benzodiazepines Scrn Urine Cocaine Screen U Cannabinoids Screen 03/30/18 03/30/18 11:26 11:32 WBC RBC Hgb Hct MCV MCH MCHC RDW Plt Count MPV Neut % (Auto) Lymph % (Auto) [place] % (Auto) Eos % (Auto) Baso % (Auto) Neut # (Auto) Lymph # (Auto) [place] # (Auto) Eos # (Auto) Baso # (Auto) WBC Differential Differential Comment POC Glucose Greater than 600 H* 154 H Hemoglobin A1c Urine Opiates Screen Ur Barbiturates Screen Ur Amphetamine Screen U Benzodiazepines Scrn Urine Cocaine Screen U Cannabinoids Screen Assessment and Plan - Plan 42-year-old man with Acute mood disorder Management per psychiatry Continue Yarbrough act Depression Management per psychiatry History of hypertension Resume lisinopril 20 mg twice daily as well as Amlodipine Questionable diabetes. -Previously admitted in DKA however most recent A1c was 6.5 -Has not needed sliding scale coverage, will DC -Monitor daily sugars DVT prophylaxis: Encourage ambulation
--- NOTE | 2018-03-31 00:44 | ECG ---
Date Performed: 03/29/2018 Time Performed: 14:06:46 PTAGE: 42 years EKG: SINUS BRADYCARDIA MODERATE INTRAVENTRICULAR CONDUCTION DELAY INFERIOR Q-WAVES SUGGESTING CO IOR SEPTAL MYOCARDIAL INFARCTION BORDERLINE ECG PREVIOUS TRACING : 10/19/2017 07.29 Compared to previous tracing, PREVIOUS WCT HAS RESOLVED. RH YTHM HAS RETURNED TO [facility]US DOCTOR: Zach Salcedo Interpretating Date/Time 03/31/2018 00:43:35
[2018-03-31] MEDS: hydrALAZINE 50 MG Tablet PO SCH ×4 (02:43→18:06)
[2018-03-31] MEDS: amLODIPine 5 MG Tablet PO SCH (08:23)
[2018-03-31] MEDS: Gabapentin 100 MG Capsule PO SCH ×3 (08:23→18:03)
[2018-03-31] MEDS: ARIPiprazole 5 MG Tablet PO SCH ×2 (08:24→20:24)
[2018-03-31] MEDS: Carvedilol 6.25 MG Tablet PO SCH ×2 (08:24→20:25)
[2018-03-31] MEDS: Divalproex 500 MG DR Tablet PO SCH ×2 (08:24→20:25)
[2018-03-31] MEDS: Lisinopril 20 MG Tablet PO SCH ×2 (08:24→20:24)
--- NOTE | 2018-03-31 10:52 | P.PNPSY ---
Subjective Remarks: Chart reviewed and discussed with nursing staff. Patient outside in the common area. Nursing staff noted that in the past few days he would only answer with one word responses. Today he is talkative and engaging. He stated, " I do not speak until the auras are correct and I am not going to speak to an empty wagon. " States that [facility] [place] and that he knows that he has to "check in" and provide his location because he is on community control. He denies any auditory or visual hallucinations. No physical complaints noted at this time. Denies SI/HI. Review of Systems All other systems reviewed negative except as stated in HPI Mental Status Examination Appearance: Appropriate Consciousness: Alert, Vigilant Orientation: Person, Place, Date/Time Motor Activity: Normal gait, Other (No abnormal motor movements noted) Speech: Unremarkable Language: Adequate Fund of Knowledge: Adequate Attention and Concentration: Adequate Memory: Unremarkable Mood: Irritable (Mild) Affect: Irritable (Mild) Thought Process & Associations: Circumstantial Thought Content: Bizarre thinking, Delusional Hallucination Type: None Delusion Type: Paranoid Suicidal Ideation: No Suicidal Plan: No Suicidal Intention: No Homicidal Ideation: No Homicidal Plan: No Homicidal Intention: No Insight: Poor Judgment: Poor Assessment and Plan - Assessment (1) Unspecified psychosis Code(s): F29 - Unspecified psychosis not due to a substance or known physiological condition Status: Acute - Plan Plan: Continue current treatment plan. Justification for Continued Inpatient Stay: Moving patient to a less restrictive environment may result in his decompensation. Request Healthcare Surrogate/Guardian Advocate?: Yes
--- NOTE | 2018-03-31 15:37 | P.PN ---
Subjective Interval history: Patient is seen in [facility]. He tells me he is doing well. Once again requested Accu-Cheks be stopped. No other new concerns or complaints. Nursing reports no adverse events Physical Exam Vital signs: Vital Signs 03/30/18 16:56 03/31/18 05:55 Temperature 98.5 F 98 F Pulse Rate 89 77 Respiratory Rate 17 16 Blood Pressure 141/71 H 150/84 H Pulse Oximetry 100 98 Narrative: GENERAL: Well-nourished, well-developed adult male in no obvious distress. SKIN: Warm and dry. HEAD: Atraumatic. Normocephalic. CARDIOVASCULAR: Regular rate and rhythm. RESPIRATORY: No accessory muscle use. Clear to auscultation. Breath sounds equal bilaterally. GASTROINTESTINAL: Abdomen soft, non-tender, non-distended. Positive bowel sounds. MUSCULOSKELETAL: Extremities without clubbing, cyanosis, or edema. No obvious deformities. NEUROLOGICAL: Awake and alert. No obvious cranial nerve deficits. Motor grossly within normal limits. Normal speech. Results - Labs CBC & Chem 7: 03/30/18 06:17 03/29/18 09:09 Laboratory Results - last 24 hr 03/30/18 03/30/18 03/31/18 16:11 20:54 07:42 POC Glucose 133 H 116 H 122 H Assessment and Plan - Plan 42-year-old man with Acute mood disorder Management per psychiatry Continue Yarbrough act Depression Management per psychiatry History of hypertension Resume lisinopril 20 mg twice daily as well as Amlodipine Questionable diabetes. -Previously admitted in DKA however most recent A1c was 6.5 -Has not needed sliding scale coverage, will DC -Add metformin 500 mg twice daily -Monitor daily sugars DVT prophylaxis: Encourage ambulation
[2018-04-01] MEDS: ARIPiprazole 5 MG Tablet PO SCH ×2 (08:15→20:10)
[2018-04-01] MEDS: Gabapentin 100 MG Capsule PO SCH ×3 (08:15→18:02)
[2018-04-01] MEDS: Carvedilol 6.25 MG Tablet PO SCH ×2 (08:15→20:08)
[2018-04-01] MEDS: amLODIPine 5 MG Tablet PO SCH (08:15)
[2018-04-01] MEDS: Lisinopril 20 MG Tablet PO SCH ×2 (08:15→20:10)
[2018-04-01] MEDS: Divalproex 500 MG DR Tablet PO SCH ×2 (08:15→20:12)
--- NOTE | 2018-04-01 11:23 | P.PN ---
Subjective Interval history: Patient is seen walking back from recreation. He tells me that he is doing fine. Tolerating metformin. No nausea vomiting or diarrhea. Physical Exam Vital signs: Vital Signs 03/31/18 15:54 03/31/18 16:00 03/31/18 17:47 Temperature 98.3 F Pulse Rate 96 H 88 85 Respiratory Rate 18 Blood Pressure 113/69 140/81 133/72 Pulse Oximetry 97 04/01/18 06:00 04/01/18 08:09 Temperature 98.0 F Pulse Rate 97 H 83 Respiratory Rate 18 Blood Pressure 154/84 H 125/76 Pulse Oximetry 99 Intake & Output 03/31/18 04/01/18 04/01/18 18:59 06:59 18:59 Weight 85.1 kg Narrative: GENERAL: Well-nourished, well-developed adult male in no obvious distress. SKIN: Warm and dry. HEAD: Atraumatic. Normocephalic. CARDIOVASCULAR: Regular rate and rhythm. RESPIRATORY: No accessory muscle use. Clear to auscultation. Breath sounds equal bilaterally. GASTROINTESTINAL: Abdomen soft, non-tender, non-distended. Positive bowel sounds. MUSCULOSKELETAL: Extremities without clubbing, cyanosis, or edema. No obvious deformities. NEUROLOGICAL: Awake and alert. No obvious cranial nerve deficits. Motor grossly within normal limits. Normal speech. Results - Labs CBC & Chem 7: 03/30/18 06:17 03/29/18 09:09 Laboratory Results - last 24 hr 04/01/18 07:19 POC Glucose 107 Assessment and Plan - Plan 42-year-old man with Acute mood disorder Management per psychiatry Continue Yarbrough act Depression Management per psychiatry History of hypertension Resume lisinopril 20 mg twice daily as well as Amlodipine Questionable diabetes. -Previously admitted in DKA however most recent A1c was 6.5 -Has not needed sliding scale coverage, will DC -Add metformin 500 mg twice daily -Monitor sugars as needed DVT prophylaxis: Encourage ambulation Patient appears to be medically stable at this time. Hospitalist service will sign off. Please reconsult if needed
[2018-04-01] MEDS: hydrALAZINE 50 MG Tablet PO SCH ×2 (11:35→18:22)
--- NOTE | 2018-04-01 12:35 | P.PNPSY ---
Subjective Remarks: Patient seen and examined with counselor and nurse. Chart reviewed. Case discussed with nursing staff who reports patient is watchful and guarded. On my examination today, the patient remains paranoid and guarded. Thought process circumstantial. Some bizarre ideation noted at times. Denies SI or HI. Denies hallucinations. Denies side effects from medications. No physical complaints. Vital Signs Temp Pulse Resp BP Pulse Ox 04/01/18 15:00 98.6 F 85 18 129/65 100 04/01/18 11:35 88 115/58 L 04/01/18 08:09 83 125/76 04/01/18 06:00 98.0 F 97 H 18 154/84 H 99 03/31/18 17:47 85 133/72 03/31/18 16:00 88 140/81 03/31/18 15:54 98.3 F 96 H 18 113/69 97 Intake and Output 04/01/18 04/01/18 04/01/18 06:59 14:59 22:59 Other: Weight 85.1 kg Laboratory Results - last 24 hr 04/01/18 07:19 POC Glucose 107 Labs reviewed. Extended urine toxicology screen still pending. Review of Systems All other systems reviewed negative except as stated in HPI (Limitation: Psychosis) Mental Status Examination Appearance: Appropriate Consciousness: Alert, Vigilant Orientation: Person, Place (At least) Motor Activity: Normal gait, Other (No motor abnormalities noted) Speech: Unremarkable Language: Adequate Fund of Knowledge: Adequate Attention and Concentration: Adequate Memory: Unremarkable Mood: Other (Calm) Affect: Blunt Thought Process & Associations: Circumstantial Thought Content: Bizarre thinking, Delusional Hallucination Type: None Delusion Type: Paranoid Suicidal Ideation: No Suicidal Plan: No Suicidal Intention: No Homicidal Ideation: No Homicidal Plan: No Homicidal Intention: No Insight: Poor Judgment: Poor Assessment and Plan - Assessment (1) Unspecified psychosis Code(s): F29 - Unspecified psychosis not due to a substance or known physiological condition Status: Acute - Plan Plan: Titrate Abilify to 7.5 mg twice daily to target residual psychiatric symptoms. Continue Depakote as ordered. Check Depakote level, ammonia and LFTs in the morning. Hospitalist input noted and appreciated. Continue other medications and care as ordered. Justification for Continued Inpatient Stay: Medication changes. Impairment in reality construction. High risk for decompensation in less restrictive environment. Discharge Planning: Pending psychiatric stabilization. Request Healthcare Surrogate/Guardian Advocate?: Yes
[2018-04-02] MEDS: hydrALAZINE 50 MG Tablet PO SCH ×2 (02:49→11:09)
[2018-04-02] MEDS: Carvedilol 6.25 MG Tablet PO SCH (08:36)
[2018-04-02] MEDS: amLODIPine 5 MG Tablet PO SCH (08:36)
[2018-04-02] MEDS: Divalproex 500 MG DR Tablet PO SCH ×2 (08:36→20:11)
[2018-04-02] MEDS: Lisinopril 20 MG Tablet PO SCH ×2 (08:37→20:12)
[2018-04-02] MEDS: Gabapentin 100 MG Capsule PO SCH ×3 (08:37→17:08)
[2018-04-02] MEDS: ARIPiprazole 5 MG Tablet PO SCH (08:37)
[2018-04-02 11:00] LABS: Albumin 3.9 g/dL (3.4-5.0)
[2018-04-02 11:01] LABS: Total Protein 7.6 g/dL (6.4-8.2)
--- NOTE | 2018-04-02 11:18 | P.PNPSY ---
Subjective Remarks: Patient seen and examined with counselor and nurse. Chart reviewed. Case discussed with nursing staff. Patient noted to be paranoid and guarded. Case discussed in treatment team. Counselor notes that patient's father is supportive, although patient has possible paranoia directed against father, and he is reluctant to return home to stay with father on my evaluation. Today for me, patient remains somewhat paranoid and thought process is circumstantial. He denies suicidal or homicidal ideation. Denies hallucinations. Denies side effects from medications. No physical complaints. Vital Signs Temp Pulse Resp BP Pulse Ox 04/02/18 11:09 90 120/64 04/02/18 08:34 94 H 122/63 04/02/18 05:44 98.2 F 94 H 18 124/68 98 04/02/18 02:40 92 H 17 123/79 04/01/18 20:00 94 H 18 117/72 04/01/18 18:22 82 120/65 04/01/18 15:00 98.6 F 85 18 129/65 100 Laboratory Results - last 24 hr 04/02/18 04/02/18 10:13 10:13 Total Bilirubin 0.4 Direct Bilirubin 0.1 Indirect Bilirubin 0.3 AST 30 ALT 85 H Alkaline Phosphatase 89 Ammonia 46 H Total Protein 7.6 Albumin 3.9 Valproic Acid 75 Labs reviewed. Depakote level 75, but this is post dose and so likely artificially high. I will reorder a Depakote level for tomorrow morning pre- dose. Ammonia level somewhat elevated without any signs or symptoms of hyperammonemic encephalopathy. Monitor. Review of Systems All other systems reviewed negative except as stated in HPI (Limitation: Psychosis) Mental Status Examination Appearance: Appropriate Consciousness: Alert, Vigilant Orientation: Person, Place (At least) Motor Activity: Normal gait, Other (No abnormal motor movements noted) Speech: Unremarkable Language: Adequate Fund of Knowledge: Adequate Attention and Concentration: Adequate Memory: Unremarkable Mood: Other (Calm) Affect: Blunt Thought Process & Associations: Circumstantial Thought Content: Bizarre thinking, Delusional Hallucination Type: None Delusion Type: Paranoid (Perhaps decreasing) Suicidal Ideation: No Suicidal Plan: No Suicidal Intention: No Homicidal Ideation: No Homicidal Plan: No Homicidal Intention: No Insight: Poor Judgment: Poor Assessment and Plan - Assessment (1) Unspecified psychosis Code(s): F29 - Unspecified psychosis not due to a substance or known physiological condition Status: Acute - Plan Plan: Titrate Abilify to 10 mg twice daily for management of residual psychiatric symptoms. Continue Depakote as ordered and obtain a pre-dose Depakote level tomorrow morning. Nursing notes that patient's antihypertensives have been held secondary to blood pressure parameters. I will request a hospitalist consultation to reassess antihypertensive regimen. CIWA score is reportedly minimal, and the patient has not recently received Ativan by [facility]. He has no signs of any withdrawal presently on my exam. Discontinue CIWA score. Continue to monitor on the inpatient unit. Continue other medications and care as ordered. Justification for Continued Inpatient Stay: Medication changes. Impairment in reality construction. High risk for decompensation in less restrictive environment. Discharge Planning: Pending psychiatric stabilization. Request Healthcare Surrogate/Guardian Advocate?: Yes
[2018-04-02] MEDS ORDERED: hydrALAZINE 50 MG Tablet PO PRN (14:59)
--- NOTE | 2018-04-02 15:05 | P.PN ---
Subjective Interval history: Reconsult for reevaluation of antihypertensive medications. Patient is seen and examined in his room with nurse present. He denies any headaches, dizziness , lightheadedness, cough, shortness of breath or chest pain. Patient is requesting to be discharged as his ultimate goal. Nurse does not report any acute events or concerns. Antihypertensive medications have been held including hydralazine, and carvedilol due to parameters as reported by nurse. Discussed with patient positive urine toxicology screen for cocaine although patient denies any substance abuse. Discuss contraindication to beta-george as well as medication adjustments. Physical Exam Vital signs: Vital Signs 04/01/18 15:00 04/01/18 18:22 04/01/18 20:00 Temperature 98.6 F Pulse Rate 85 82 94 H Respiratory Rate 18 18 Blood Pressure 129/65 120/65 117/72 Pulse Oximetry 100 04/02/18 02:40 04/02/18 05:44 04/02/18 08:34 Temperature 98.2 F Pulse Rate 92 H 94 H 94 H Respiratory Rate 17 18 Blood Pressure 123/79 124/68 122/63 Pulse Oximetry 98 04/02/18 11:09 Temperature Pulse Rate 90 Respiratory Rate Blood Pressure 120/64 Pulse Oximetry Narrative: GENERAL: Well-nourished, well-developed adult male in no obvious distress. SKIN: Warm and dry. HEAD: Atraumatic. Normocephalic. CARDIOVASCULAR: Regular rate and rhythm. RESPIRATORY: No accessory muscle use. Clear to auscultation. Breath sounds equal bilaterally. GASTROINTESTINAL: Abdomen soft, non-tender, non-distended. Positive bowel sounds. MUSCULOSKELETAL: Extremities without clubbing, cyanosis, or edema. No obvious deformities. NEUROLOGICAL: Awake and alert. No obvious cranial nerve deficits. Motor grossly within normal limits. Normal speech. Results - Labs CBC & Chem 7: 03/30/18 06:17 03/29/18 09:09 Laboratory Results - last 24 hr 04/02/18 04/02/18 10:13 10:13 Total Bilirubin 0.4 Direct Bilirubin 0.1 Indirect Bilirubin 0.3 AST 30 ALT 85 H Alkaline Phosphatase 89 Ammonia 46 H Total Protein 7.6 Albumin 3.9 Valproic Acid 75 Assessment and Plan - Plan 42-year-old man with History of hypertension + toxicology screen for Cocaine - DC carvedilol due to positive tox screen, continue Norvasc and lisinopril. -Blood pressures have been stable, switch hydralazine to PRN -Monitor BPs if stable in the next day or 2 likely will sign off Acute mood disorder Depression - Management per psychiatry DM Hemoglobin A1c 6.5 -Continue metformin DVT prophylaxis-ambulation Thank you for this reconsult, will continue to monitor blood pressures and likely sign off in the next day or 2 if stable. Discussed Condition With: Patient and RN
--- NOTE | 2018-04-02 15:38 | P.TTN ---
- Patient Problems Problems: 1. Discharge planning 2. Medication compliance 3. Knowledge deficit 4. Lack of coping skills - Progress Toward Goals Provider Present: Dr. Bryan Gage (April 02, 2018 patient remains psychotic, Dr. Gage is titrating medications, patient remains for further stabilization.) Psychiatric Counselors Present: Devaughn Andujar Jr., [facility] (Counselor met with the patient to discuss discharge plan. Patient reports he will return to his cousin's home in the [facility] and will finish out his community control at that residence.) Group Spec/RT/OT/DE LA [place]ENT[place] Present: SUDHAKAR Nash (Patient attends select groups and is redirectable.) - Documentation Teaching Recipient: Patient
[2018-04-02] MEDS: ARIPiprazole 10 MG Tablet PO SCH (20:11)
[2018-04-03] MEDS: Divalproex 500 MG DR Tablet PO SCH ×2 (08:04→20:32)
[2018-04-03] MEDS: Gabapentin 100 MG Capsule PO SCH ×3 (08:05→18:06)
[2018-04-03] MEDS: amLODIPine 5 MG Tablet PO SCH (08:05)
[2018-04-03] MEDS: Lisinopril 20 MG Tablet PO SCH ×2 (08:05→20:32)
[2018-04-03] MEDS: ARIPiprazole 10 MG Tablet PO SCH ×2 (08:05→20:32)
--- NOTE | 2018-04-03 12:09 | P.PNPSY ---
Subjective Remarks: Patient seen and examined with counselor and nurse. Chart reviewed. Case discussed with nursing staff who reports patient has been pleasant and cooperative. Case discussed with counselor. On my examination today, the patient is significantly less paranoid. He denies any audiovisual hallucinations. Denies any command auditory hallucinations. Denies any SI or HI. He says that he feels subjectively "good" and says "I am stable." He denies side effects from medications. We discuss at length the option of long- acting injectable Abilify Maintena, and the patient is agreeable to initiating this agent today. He has no physical complaints. He would like to go stay at the [facility]. Vital Signs Temp Pulse Resp BP Pulse Ox 04/03/18 05:41 98.2 F 104 H 18 129/77 100 04/02/18 18:15 98.2 F 89 18 110/59 L 100 Laboratory Results - last 24 hr 04/03/18 09:22 Valproic Acid 76 Labs reviewed. Depakote level noted, but this once again was post dose. I have spoken with nursing about holding the morning dose of Depakote until Depakote level is drawn tomorrow morning. Review of Systems All other systems reviewed negative except as stated in HPI Mental Status Examination Appearance: Appropriate Consciousness: Alert, Vigilant Orientation: Person, Place (At least) Motor Activity: Normal gait, Other (No hand tremor, no dystonia, no dyskinesia, no other motor abnormalities noted.) Speech: Unremarkable Language: Adequate Fund of Knowledge: Adequate Attention and Concentration: Adequate Memory: Unremarkable Mood: Other (Calm) Affect: Blunt Thought Process & Associations: Circumstantial Thought Content: Appropriate Hallucination Type: None Delusion Type: None Suicidal Ideation: No Suicidal Plan: No Suicidal Intention: No Homicidal Ideation: No Homicidal Plan: No Homicidal Intention: No Insight: Poor (Perhaps improving somewhat) Judgment: Poor (Perhaps improving somewhat) Assessment and Plan - Assessment (1) Unspecified psychosis Code(s): F29 - Unspecified psychosis not due to a substance or known physiological condition Status: Acute - Plan Plan: Administer Abilify Maintena 400 mg IM once. Continue oral Abilify supplementation. R/B/A for medication discussed with patient. Check another Depakote level tomorrow morning, pre-dose. Transfer patient to lower acuity unit as his behavior is more appropriate for that unit at this time. Continue other medications and care as ordered. Patient may sign voluntary. Justification for Continued Inpatient Stay: Medication changes. Risk for decompensation in less restrictive environment. Discharge Planning: [facility]or [facility] with [facility] [place] [facility] per patient preference. Request Healthcare Surrogate/Guardian Advocate?: Yes
--- NOTE | 2018-04-03 14:14 | P.PNADD ---
Addendum to Inpatient Note Reason for Addendum: Additional Documentation Additional information: Reconsult on 04/02 to review patient's blood pressure medications in regards to his positive toxicology screen for cocaine. Patient's carvedilol was discontinued and hydralazine was made PRN. He was continued on his Lasix 20 mg twice daily and vitals have been stable. [facility] will sign off please reconsult if needed.
[2018-04-03] MEDS ORDERED: [UNRECOGNIZED DRUG - OTHER] IM ONE (15:00)
[2018-04-03] MEDS ORDERED: ABILIFY MAINTENA 400 MG IM ONE (15:00)
[2018-04-04] MEDS: amLODIPine 5 MG Tablet PO SCH (08:47)
[2018-04-04] MEDS: Gabapentin 100 MG Capsule PO SCH ×2 (08:47→12:16)
[2018-04-04] MEDS: ARIPiprazole 10 MG Tablet PO SCH (08:48)
[2018-04-04] MEDS: Lisinopril 20 MG Tablet PO SCH (08:48)
[2018-04-04] MEDS: Divalproex 500 MG DR Tablet PO SCH ×2 (08:51→12:16)
--- NOTE | 2018-04-04 11:15 | P.DSPSY ---
Psychiatry Discharge Summary Inpatient Psychiatric care?: Yes Advance Directives: No Mental Health Advance Directive: No Health Care Proxy: No - Admission Admission Date: March 28, 2018 09:05 - Admission Diagnosis (1) Unspecified psychosis Code(s): F29 - Unspecified psychosis not due to a substance or known physiological condition Brief History: The patient is a 42-year-old -[place] man, homeless, apparently is a , single, with unknown psychiatric history, or suicide attempt, first time in the department of psychiatry at [facility], reported medical history diabetes, who presents emergency department for evaluation of Yarbrough act, no informants reported the patient was acting very bizarre in the street, holding a postal in the middle of the street, talking to himself, playing and no answering any question appropriately. In the ER the patient has been very intrusive, talking to himself, responding to internal stimuli, no redirectable. On the initial medical ER evaluation yesterday he was described as quite odd and just prior to the examination and history he was defecated and urinated all over his examination room. On the psychiatric evaluation today the patient is irritable and oppositional. Yarbrough act also says "the reporting alliance party advised that a black male was running around the property naked. Upon arrival he made contact with the patient. The patient automatically began performing positions. After identifying himself as "Geovani" the patient advised that his name was not Geovani it was "[id number]." The patient advised that the number was his veterans number. The patient continued by saying that he was a clone..." when asked where he is he states "386" referring to our area code. In the J pod, the patient becomes quite verbally hostile, disorganized, unpredictable, and unable to follow verbal direction and had to be medicated with Haldol 5 mg and Ativan 2 mg IM to calm down. PPHx: Unknown psychiatric history, first time at [facility] PMHx: Diabetes Substance Hx: He denies the use of illegal drugs or alcohol Social Hx: He says that he is from [facility], homeless, unemployed, Family HX: Unknown family psychiatric Tobacco Use In Past 30 Days: No How Often Do You Have a Drink Containing Alcohol: Never Hospital Course: Patient was admitted to a locked, inpatient psychiatric unit. A general medical consultation was obtained. Appropriate precautions were in place throughout patient's hospital stay. Patient was seen and examined on the unit by psychiatry and also visited by counselor. Psychotropic medications were adjusted. Patient was started on long-acting injectable Abilify Maintena. Patient tolerated medication changes well without side effects. Patient had improvement in presenting psychiatric symptomatology during the course of his hospital stay. There was no evidence of any suicidality or homicidality on the inpatient unit. Self-care improved with improvement in patient's psychiatric symptomatology. Collateral information was obtained from patient's father as well as from his psychiatrist's nurse at the [facility]. Patient was uneventfully transitioned from the higher acuity unit to the lower acuity unit and tolerated the milieu of the lower acuity unit well. On the day of discharge: Patient seen and examined. Chart reviewed. Case discussed with nursing staff. No behavioral issues noted overnight. Case discussed with counselor. On my examination today, the patient is requesting discharge from the inpatient psychiatric unit today. He denies any suicidal or homicidal ideation, intent or plan. I can elicit no depressive or hypomanic/ manic symptoms. He denies any audiovisual hallucinations. I can elicit no delusional material. He denies side effects from medications. No evidence of hyperammonemic encephalopathy. He does request to be discharged with Cogentin 2 mg at bedtime as needed for EPS as he has experienced some delayed-onset EPS from antipsychotic therapy in the past, which has typically responded to this dose of medication. I have discussed with patient the need for temporary supplementation of his Abilify Maintena with oral Abilify. No physical complaints. I did put out a call to patient's outpatient psychiatrist's nurse at the [facility] to discuss medication changes during this hospitalization and left a generic voicemail requesting a call back. Suicide and violence risk assessment on day of discharge both suggest lower imminent risk from mental illness as defined under the Yarbrough act and the patient 's level of function is adequate for outpatient care. He does not meet criteria for involuntary psychiatric hospitalization at this time. The patient has maximized benefit from this inpatient psychiatric hospital stay. He will be discharged home today with psychiatric follow-up as arranged by counselor. Patient is also to follow up with primary care. Patient to abstain from substances of abuse. Patient counseled to return to psychiatric emergency room for any concerning symptoms. As part of a general safety plan. - Discharge Discharge Date: 04/04/18 - Discharge Diagnosis (1) Unspecified psychosis Diagnosis: Principal (Stabilized. Rule out cocaine induced psychotic disorder. ) Code(s): F29 - Unspecified psychosis not due to a substance or known physiological condition Status: Resolved (2) Cocaine use Diagnosis: Secondary Code(s): F14.90 - Cocaine use, unspecified, uncomplicated Status: Acute Discharge Disposition: Home - Discharge Instructions Discharge Diet: Diabetic Diet Activities You Can Perform: Weight Bearing As Tolerat - Discharge Time <= 30 minutes Mental Status Examination Appearance: Appropriate Consciousness: Alert, Vigilant Orientation: x4 Motor Activity: Other (No motoric abnormalities noted) Speech: Unremarkable Language: Adequate Fund of Knowledge: Adequate Attention and Concentration: Adequate Memory: Unremarkable Mood: Appropriate Affect: Blunt Thought Process & Associations: Intact, Logical, Linear Thought Content: Appropriate Hallucination Type: None Delusion Type: None Suicidal Ideation: No Suicidal Plan: No Suicidal Intention: No Homicidal Ideation: No Homicidal Plan: No Homicidal Intention: No Mental Status Exam Remarks: Insight and judgment are perhaps fair Discharge/Advance Care Plan - Results Vital Signs: Last Vital Signs Temp 97.8 F 04/04/18 06:00 Pulse 70 04/04/18 06:00 Resp 16 04/04/18 06:00 BP 111/61 04/04/18 06:00 Pulse Ox 95 04/04/18 06:00 Lab Results: Abnormal Lab Results 03/29/18 04/04/18 18:00 06:28 Ur Buprenorphine Negative Ur Heroin Screen Negative Urine Oxycodone Negative Ur Methadone Negative U Hydromorphone Confirm Negative Urine Fentanyl Negative Valproic Acid 77 Urine Gabapentin Negative Ur Phencyclidine (PCP) Negative Urine MDPV Negative Ur MDMA & Metabolites Negative Urine Cocaine Confirm Ur Synth THC (K2) Negative Laboratory Results Hemoglobin A1c 6.5 % (4.3-6.0) H 03/29/18 09:09 Triglycerides 116 mg/dL (42-150) 03/29/18 09:09 Cholesterol 160 mg/dL (120-200) 03/29/18 09:09 LDL Cholesterol, Calc 88 mg/dL (0-99) 03/29/18 09:09 HDL Cholesterol 49.2 mg/dL (40.0-60.0) 03/29/18 09:09 TSH 1.010 uIU/mL (0.358-3.740) 03/27/18 21:15 Valproic Acid 77 mcg/mL (50-100) 04/04/18 06:28 Summary of Procedures: None done. Pending Results: None - Medications Number of antipsychotic medications at discharge: 1 (Mehnaz TAMI and Ayleena) - Discharge Care Plan Goals to Promote Your Health: * To prevent worsening of your condition and complications * To maintain your health at the optimal level Directions to Meet Your Goals: Take your medications as prescribed Follow your dietary instruction Follow activity as directed Keep your appointments as scheduled Take your immunizations and boosters as scheduled If your symptoms worsen call your PCP, if no PCP go to Urgent Care Center or Emergency Room For 25/12 questions related to your inpatient stay or results of tests pending at discharge, please contact Dr. Huey Gage MD at Smoking is Dangerous to Your Health. Avoid second hand smoking
== END 2018-04-04 14:10 | disposition home or self-care (01) ==
LOC: NEPD 17:48 → NEDA 03-28 09:05 → H270 03-28 10:01 → NEDA 03-28 10:01 → H270 04-01 09:42 → H260 04-03 14:38
PROVIDERS: ADMIT Psychiatry & Neurology Psychiatry; ATTEND Psychiatry & Neurology Psychiatry